=== PATIENT | female | born 1955 | race Caucasian/White ===

== ENCOUNTER 2019-04-04 16:25 | Emergency (ER) | payer OTHER ==
[2019-04-04] MEDS ORDERED: FUROSEMIDE 20 MG/ 2ML VIAL ONE (17:04)
[2019-04-04] MEDS ORDERED: FUROSEMIDE 40 MG/4 ML VIAL ONE (17:04)
[2019-04-04] MEDS ORDERED: METOPROLOL TAR 50 MG TAB ONE (17:19)
[2019-04-04 17:48] LABS: Absolute Lymphocytes (CBC) 1.4 K/uL (0.7-4.9); Hematocrit 38.6 % (36.0-45.0); Lymphocytes % 13.7 % (15.3-44.8); MPV 8.1 fL (7.6-11.3); RBC Red Blood Cell Count 4.32 M/uL (3.86-4.86)
--- NOTE | 2019-04-04 18:48 | ER ---
Nurse's Notes [facility] Name: Kandice Elizabeth Age: 63 yrs Sex: Female : 1955 Arrival Date: 04/04/2019 Time: 16:29 Bed 2 Private MD: Diagnosis: Unspecified combined systolic (congestive) and diastolic (congestive) heart failure;Pulmonary edema;Encounter for medication refill Presentation: 04/04 16:31 Presenting complaint: Patient states: SOB, BLE swelling x 2-3 weeks. Transition of sv care: patient was not received from another setting of care. Onset of symptoms was 2019. Care prior to arrival: None. 16:31 Method Of Arrival: Ambulatory sv 16:31 Acuity: COLBY 2 sv 16:42 Risk Assessment: Do you want to hurt yourself or someone else? Patient reports no tw2 desire to harm self or others. 17:17 Initial Sepsis Screen: Does the patient meet any 2 criteria? RR > 20 per min. HR > 90 tw2 bpm. Does the patient have a suspected source of infection? No. Patient's initial sepsis screen is negative. Triage Assessment: 16:43 Respiratory: Onset: The symptoms/episode began/occurred 2-3 weeks. tw2 18:09 Respiratory: the patient has moderate shortness of breath. tw2 Historical: - Allergies: 16:33 No Known Allergies; sv - Home Meds: 16:52 Novolin R 40 units, SUBQ twice daily Sub-Q [Active]; montelukast 10 mg oral tab 1 tab tw2 once daily [Active]; metoprolol tartrate 50 mg Oral tab 1 tab 2 times per day [Active]; furosemide 40 mg Oral tab 1 tab 2 times per day [Active]; pramipexole 0.25 mg oral tab 1 tab twice daily [Active]; Novolin N 100 unit/mL Sub-Q susp [Active]; Eliquis 5 mg oral tab 1 tab 2 times per day [Active]; Advair Diskus 250-50 mcg/dose Inhl dsdv 1 puff 2 times per day [Active]; - PMHx: 16:33 Hypertension; CHF; sv 16:34 Diabetes - IDDM; sv - PSHx: 16:33 Bypass; Heart stents; sv - Immunization history:: Adult Immunizations. - Social history:: Smoking status: . - Ebola Screening: : Patient denies travel to an Ebola-affected area in the 21 days before illness onset. - Family history:: not pertinent. - Hospitalizations: : No recent hospitalization is reported. Screenin:42 Abuse screen: Denies threats or abuse. Nutritional screening: No deficits noted. tw2 Tuberculosis screening: No symptoms or risk factors identified. Fall Risk Secondary diagnosis (15 points) impaired mobility. Assessment: 16:34 General: Appears in no apparent distress. obese, Behavior is calm, cooperative, tw2 appropriate for age. Pain: Denies pain. Neuro: Level of Consciousness is awake, alert, obeys commands, Oriented to person, place, time, situation. Neuro:. Cardiovascular: Heart tones S1 S2 Capillary refill < 3 seconds Rhythm is irregular. Respiratory: Reports shortness of breath at rest on exertion Airway is patent Respiratory effort is even, unlabored, Respiratory pattern is regular, symmetrical, Breath sounds with wheezes bilaterally. GI: No signs and/or symptoms were reported involving the gastrointestinal system. Abdomen is round non-distended, obese. GI: Bowel sounds present X 4 quads. : No signs and/or symptoms were reported regarding the genitourinary system. EENT: No signs and/or symptoms were reported regarding the EENT system. Derm: Skin is intact, is healthy with good turgor. Musculoskeletal: Range of motion: intact in all extremities. 17:34 Reassessment: Patient appears in no apparent distress at this time. No changes from tw2 previously documented assessment. Patient and/or family updated on plan of care and expected duration. Pain level reassessed. 18:30 Reassessment: Patient appears in no apparent distress at this time. No changes from tw2 previously documented assessment. Patient and/or family updated on plan of care and expected duration. Pain level reassessed. 19:26 Reassessment: Patient appears in no apparent distress at this time. No changes from tw2 previously documented assessment. Patient and/or family updated on plan of care and expected duration. Pain level reassessed. Patient states feeling better. Patient states symptoms have improved. Vital Signs: 16:33 BP 162 / 84; Pulse 121; Resp 32; Temp 98.4(TE); Pulse Ox 96% ; Weight 99.34 kg; Height sv 5 ft. 0 in. (152.40 cm); 16:59 BP 161 / 98; Pulse 115; Resp 18; Pulse Ox 97% on R/A; tw2 17:34 BP 161 / 88; Pulse 107; Resp 19; Pulse Ox 97% on 2 lpm NC; tw2 19:20 BP 148 / 81; Pulse 101; Resp 19; Pulse Ox 97% on R/A; tw2 16:33 Body Mass Index 42.77 (99.34 kg, 152.40 cm) sv ED Course: 16:29 Patient arrived in ED. ag5 16:31 Arm band placed on. sv 16:32 Triage completed. sv 16:34 Bed in low position. Call light in reach. cardiac monitor on. Pulse ox on. NIBP on. tw2 16:39 Shaan Mukherjee MD is Attending Physician. rn 16:59 Kacy March RN is Primary Nurse. tw2 17:15 Missed attempt(s): 22 gauge in right hand. Bleeding controlled, band aid applied, tw2 catheter tip intact. 17:22 XRAY Chest (1 view) In Process Unspecified. EDMS 17:26 Missed attempt(s): 24 gauge in left hand. notified charge nurse Samara<RN of need for tw2 iv. Bleeding controlled, band aid applied, catheter tip intact. 17:41 Inserted saline lock: 24 gauge in right wrist, using aseptic technique. Blood collected. 18:47 Khurram Byers MD is Referral Physician. rn 19:20 No provider procedures requiring assistance completed. IV discontinued, intact, tw2 bleeding controlled, No redness/swelling at site. Pressure dressing applied. Administered Medications: 17:55 Drug: Lasix 60 mg Route: IVP; Site: right hand; tw2 17:55 Drug: Metoprolol TARTRATE (Lopressor) 50 mg Route: PO; tw2 Output: 19:00 Urine: 400ml (Voided); Total: 400ml. tw2 Outcome: 18:47 Discharge ordered by MD. rn 19:20 Discharged to home ambulatory, with significant other. tw2 19:20 Condition: stable 19:20 Discharge instructions given to patient, significant other, Instructed on discharge instructions, follow up and referral plans. medication usage, Demonstrated understanding of instructions, follow-up care, medications, Prescriptions given X 3. 19:24 Patient left the ED. aa1 Signatures: Dispatcher [employer] EDMS Melania Diehl RN RN sv Karely Poe RN RN aa1 Shaan Mukherjee MD MD rn Smirch, Shelby, RN RN ss Wise, Tara, RN RN tw2 Ana Paula Lott ag5 Corrections: (The following items were deleted from the chart) 16:34 16:33 Resp 32bpm; Temp 98.4F Temporal; sv sv 18:09 16:34 Respiratory: Reports shortness of breath at rest on exertion Airway is patent tw2 Respiratory effort is even, unlabored, Respiratory pattern is regular, symmetrical, Breath sounds are clear bilaterally. tw2
--- NOTE | 2019-04-04 18:48 | EDPHYS ---
Physician Documentation [facility] Name: Kandice Elizabeth Age: 63 yrs Sex: Female : 1955 Arrival Date: 04/04/2019 Time: 16:29 Bed 2 Private MD: ED Physician Shaan Mukherjee HPI: 04/04 17:01 This 63 yrs old Female presents to ER via Ambulatory with complaints of rn Shortness Of Breath, Medication Refill, Blood Pressure Problem. 17:01 The patient has shortness of breath with light activity. Onset: The symptoms/episode rn began/occurred at an unknown time. Duration: The symptoms are intermittent. The patient's shortness of breath is aggravated by exertion, light activity, supine position, talking, walking. Severity of symptoms: At their worst the symptoms were moderate in the emergency department the symptoms are unchanged. The patient has experienced similar episodes in the past. The patient has not recently seen a physician. Reports sob and swelling for weeks, not from here so her doctor is not here, no fever, ran out of metoprolol and restless legs syndrome meds, here for refill. . Historical: - Allergies: 16:33 No Known Allergies; sv - Home Meds: 16:52 Novolin R 40 units, SUBQ twice daily Sub-Q [Active]; montelukast 10 mg oral tab 1 tab tw2 once daily [Active]; metoprolol tartrate 50 mg Oral tab 1 tab 2 times per day [Active]; furosemide 40 mg Oral tab 1 tab 2 times per day [Active]; pramipexole 0.25 mg oral tab 1 tab twice daily [Active]; Novolin N 100 unit/mL Sub-Q susp [Active]; Eliquis 5 mg oral tab 1 tab 2 times per day [Active]; Advair Diskus 250-50 mcg/dose Inhl dsdv 1 puff 2 times per day [Active]; - PMHx: 16:33 Hypertension; CHF; sv 16:34 Diabetes - IDDM; sv - PSHx: 16:33 Bypass; Heart stents; sv - Immunization history:: Adult Immunizations. - Social history:: Smoking status: . - Ebola Screening: : Patient denies travel to an Ebola-affected area in the 21 days before illness onset. - Family history:: not pertinent. - Hospitalizations: : No recent hospitalization is reported. ROS: 17:01 Constitutional: Negative for fever, chills, and weight loss, Eyes: Negative for injury, rn pain, redness, and discharge, Neck: Negative for injury, pain, and swelling, Cardiovascular: Negative for chest pain, palpitations Respiratory: Negative for pleuritic chest pain Abdomen/GI: Negative for abdominal pain, nausea, vomiting, diarrhea, and constipation, MS/Extremity: Negative for injury and deformity, Skin: Negative for injury, rash, and discoloration, Neuro: Negative for headache, weakness, numbness, tingling, and seizure. Exam: 17:01 Constitutional: This is a well developed, well nourished patient who is awake, alert, rn and in no acute distress. Head/Face: Normocephalic, atraumatic. ENT: MMM Cardiovascular: Tachycardic, irregular, distal pulses intact Respiratory: Clear bilateral breath sounds with diminished at bases. Speaking full sentences. Abdomen/GI: soft, non-tender MS/ Extremity: Pulses equal, no cyanosis. Neurovascular intact. Full, normal range of motion. Equal circumference. 2+ pitting edema bilateral lower ext. Neuro: Awake and alert, GCS 15, oriented to person, place, time, and situation. Cranial nerves II-XII grossly intact. Motor strength 5/5 in all extremities. Sensory grossly intact. Vital Signs: 16:33 BP 162 / 84; Pulse 121; Resp 32; Temp 98.4(TE); Pulse Ox 96% ; Weight 99.34 kg; Height sv 5 ft. 0 in. (152.40 cm); 16:59 BP 161 / 98; Pulse 115; Resp 18; Pulse Ox 97% on R/A; tw2 17:34 BP 161 / 88; Pulse 107; Resp 19; Pulse Ox 97% on 2 lpm NC; tw2 19:20 BP 148 / 81; Pulse 101; Resp 19; Pulse Ox 97% on R/A; tw2 16:33 Body Mass Index 42.77 (99.34 kg, 152.40 cm) sv MDM: 16:39 Patient medically screened. rn 18:45 Differential diagnosis: CHF exacerbation, pulmonary edema, reactive airway disease. rn Data reviewed: vital signs, nurses notes, lab test result(s), EKG, radiologic studies, plain films, and as a result, I will discharge patient. Counseling: I had a detailed discussion with the patient and/or guardian regarding: the historical points, exam findings, and any diagnostic results supporting the discharge/admit diagnosis, lab results, radiology results, the need for outpatient follow up, to return to the emergency department if symptoms worsen or persist or if there are any questions or concerns that arise at home. Response to treatment: the patient's symptoms have markedly improved after treatment, and as a result, I will discharge patient. Special discussion: I discussed with the patient/guardian in detail that at this point there is no indication for admission to the hospital. It is understood, however, that if the symptoms persist or worsen the patient needs to return immediately for re-evaluation. Based on the history and exam findings, there is no indication for further emergent testing or inpatient evaluation. I discussed with the patient/guardian the need to see the sales promotion coordinator for further evaluation of the symptoms. I discussed with the patient/guardian the need to see the primary care provider for further evaluation of the symptoms. ED course: Reports marked improvement, has urinated quite a bit, xray shows mild pulmonary edema, elevated BNP, but no oxygen requirement. Requesting to go home. Afib with rvr responding to metoprolol, and likely running faster than normal because she has been out of metoprolol. . 04/04 16:58 Order name: CBC with Diff; Complete Time: 18:06 rn 04/04 16:58 Order name: Basic Metabolic Panel; Complete Time: 18:08 rn 04/04 16:58 Order name: N-Terminal Pro-brain Natriuretic Peptide; Complete Time: 18:08 rn 04/04 16:58 Order name: XRAY Chest (1 view); Complete Time: 19:16 rn 04/04 16:58 Order name: IV Start; Complete Time: 18:08 rn 04/04 16:58 Order name: EKG; Complete Time: 16:58 rn 04/04 16:58 Order name: EKG - Nurse/Tech; Complete Time: 18:07 rn Administered Medications: 17:55 Drug: Lasix 60 mg Route: IVP; Site: right hand; tw2 17:55 Drug: Metoprolol TARTRATE (Lopressor) 50 mg Route: PO; tw2 Disposition: 04/04/19 18:47 Discharged to Home. Impression: Unspecified combined systolic (congestive) and diastolic (congestive) heart failure, Pulmonary edema, Encounter for medication refill. - Condition is Stable. - Discharge Instructions: Heart Failure, Pulmonary Edema. - Prescriptions for pramipexole 0.25 mg Oral tablet - take 1 tablet by ORAL route 2 times per day As needed 2-3 hours before bedtime; 60 tablet. Metoprolol Tartrate 50 mg Oral Tablet - take 1 tablet by ORAL route 2 times per day take with meal; 60 tablet. Albuterol Sulfate 90 mcg/actuation - inhale 1-2 puff by INHALATION route every 4-6 hours; 1 Inhaler. - Medication Reconciliation Form, Thank You Letter, Antibiotic Education, Prescription Opioid Use form. - Follow up: Khurram Byers; When: As needed; Reason: Recheck today's complaints, Re-evaluation by your physician. - Problem is chronic. - Symptoms have improved. Signatures: Dispatcher [employer] EDMS Melania Diehl RN RN Karely Poe RN RN aa1 Shaan Mukherjee MD MD rn Wise, Tara, RN RN tw2 Corrections: (The following items were deleted from the chart) 17:09 17:01 Constitutional: This is a well developed, well nourished patient who is awake, rn alert, and in no acute distress. Head/Face: Normocephalic, atraumatic. ENT: MMM Cardiovascular: Tachycardic, regular, distal pulses intact Respiratory: Clear bilateral breath sounds with diminished at bases. Speaking full sentences. Abdomen/GI: soft, non-tender MS/ Extremity: Pulses equal, no cyanosis. Neurovascular intact. Full, normal range of motion. Equal circumference. 2+ pitting edema bilateral lower ext. Neuro: Awake and alert, GCS 15, oriented to person, place, time, and situation. Cranial nerves II-XII grossly intact. Motor strength 5/5 in all extremities. Sensory grossly intact. rn 19:24 18:47 04/04/2019 18:47 Discharged to Home. Impression: Unspecified combined systolic aa1 (congestive) and diastolic (congestive) heart failure; Pulmonary edema; Encounter for medication refill. Condition is Stable. Discharge Instructions: Heart Failure, Pulmonary Edema. Prescriptions for pramipexole 0.25 mg Oral tablet - take 1 tablet by ORAL route 2 times per day As needed 2-3 hours before bedtime; 60 tablet, Metoprolol Tartrate 50 mg Oral Tablet - take 1 tablet by ORAL route 2 times per day take with meal; 60 tablet, Albuterol Sulfate 90 mcg/actuation - inhale 1-2 puff by INHALATION route every 4-6 hours; 1 Inhaler. and Forms are Medication Reconciliation Form, Thank You Letter, Antibiotic Education, Prescription Opioid Use. Follow up: Khurram Byers; When: As needed; Reason: Recheck today's complaints, Re-evaluation by your physician. Problem is chronic. Symptoms have improved. rn
--- NOTE | 2019-04-04 19:13 | RAD REPORT ---
EXAM DESCRIPTION: RAD - Chest Single View - 04/04/2019 5:24 pm CLINICAL HISTORY: Dyspnea COMPARISON: None. TECHNIQUE: AP portable chest image was obtained 1720 hours . FINDINGS: No peripheral consolidation or mass identifiable. Portable technique and large body habitu s limit the examination. Interstitial markings are prominent. Cardiomegaly is present with vascular e ngorgement. Sternotomy wires are in place. No measurable pleural effusion and no pneumothorax. No acu te bony abnormality seen. No acute aortic findings suspected. IMPRESSION: Limited portable study showing mild CHF/ volume overload findings.
[2019-04-04 19:45] VITALS: TEMP 98.4
[2019-04-04 19:47] VITALS: O2SAT 97
[2019-04-04 19:55] VITALS: BP 117/66
--- NOTE | 2019-04-05 06:34 | EKG ---
Test Date: 2019-04-04 Test Time: 17:06:31 Clinical Laboratory Director: CHARITY MEASUREMENT RESULTS: Intervals: Rate: 118 ND: QRSD: 76 QT: 330 QTc: 462 [place]: P: ND: QRS: 119 T: -44 INTERPRETIVE STATEMENTS: Atrial fibrillation with rapid ventricular response Right axis deviation T wave abnormality, consider inferior ischemia Abnormal ECG No previous ECG available for comparison Electronically Signed On 04-05-19 06:33:23 BISQUE WARE DIPPER by Pierce Ley
== END 2019-04-04 19:24 | disposition home or self-care (01) ==
LOC: ER 16:25
DX: I50.40 Unspecified combined systolic (congestive) and diastolic (congestive) heart failure (principal); J81.1 Chronic pulmonary edema; Z76.0 Encounter for issue of repeat prescription; I10 Essential (primary) hypertension; E11.9 Type 2 diabetes mellitus without complications; Z79.01 Long term (current) use of anticoagulants; Z79.4 Long term (current) use of insulin; Z95.818 Presence of other cardiac implants and grafts
CPT/HCPCS: 93005; 85025; 80048; 36415; 83880; 71045; 96374; 99284; J1940 ×2

== ENCOUNTER 2019-04-10 15:17 | Emergency (ER) | payer OTHER ==
[2019-04-10 18:12] LABS: Urine Blood TRACE (NEG); Urine Glucose 3+ (NEG); Urine Protein TRACE (NEG)
[2019-04-10 18:23] LABS: Urine Bacteria >50 /HPF (<20); Urine Culture Reflex Order NOT NEEDED; Urine Mucus 1+ /HPF (NONE SEEN)
[2019-04-10] MEDS ORDERED: LIDOCAINE 1% MPF 5 ML VIAL ONE (18:29)
[2019-04-10] MEDS ORDERED: CEFTRIAXONE 1000 MG/VIAL ONE (18:30)
--- NOTE | 2019-04-10 18:45 | ER ---
Nurse's Notes [facility] Name: Kandice Elizabeth Age: 63 yrs Sex: Female : 1955 Arrival Date: 04/10/2019 Time: 15:21 Bed 16 Private MD: Diagnosis: Streptococcal pharyngitis;Urinary tract infection, site not specified Presentation: 04/10 15:57 Presenting complaint: Patient states: "I had blood in my urine this morning, it was aj1 pale pink, the past 2-3 days my throat has been so sore I can't stand it" Reports fever at home of 100.0 Patient also reports right ear pain. Transition of care: patient was not received from another setting of care. Onset of symptoms was April 10, 2019. Risk Assessment: Do you want to hurt yourself or someone else? Patient reports no desire to harm self or others. Initial Sepsis Screen: Does the patient meet any 2 criteria? HR > 90 bpm. No. Patient's initial sepsis screen is negative. Does the patient have a suspected source of infection? Yes: Dysuria/Frequency/Urgency/UTI. Care prior to arrival: None. 15:57 Method Of Arrival: Wheelchair aj1 15:57 Acuity: COLBY 3 aj1 Triage Assessment: 16:02 General: Appears in no apparent distress. comfortable, Behavior is calm, cooperative, aj1 appropriate for age. Pain: Complains of pain in right ear, left aspect of posterior pharynx and right aspect of posterior pharynx. EENT: Reports sore throat and ear pain. Neuro: Level of Consciousness is awake, alert, obeys commands. Cardiovascular: Patient's skin is warm and dry. Respiratory: Airway is patent Respiratory effort is even, unlabored, Respiratory pattern is regular, symmetrical. Historical: - Allergies: 16:02 No Known Allergies; aj1 - Home Meds: 16:02 Advair Diskus 250-50 mcg/dose Inhl dsdv 1 puff 2 times per day [Active]; Eliquis 5 mg aj1 Oral tab 1 tab 2 times per day [Active]; furosemide 40 mg Oral tab 1 tab 2 times per day [Active]; metoprolol tartrate 50 mg Oral tab 1 tab 2 times per day [Active]; montelukast 10 mg Oral tab 1 tab once daily [Active]; Novolin N 100 unit/mL Sub-Q susp [Active]; Novolin R 40 units, SUBQ twice daily Sub-Q [Active]; pramipexole 0.25 mg Oral tab 1 tab twice daily [Active]; - PMHx: 16:02 CHF; Diabetes - IDDM; Hypertension; Atrial Fib; brain bleed; aj1 - PSHx: 16:02 bypass surgery; aj1 - Immunization history:: Adult Immunizations up to date. - Social history:: Smoking status: Patient/guardian denies using tobacco. - Ebola Screening: : Patient denies travel to an Ebola-affected area in the 21 days before illness onset. Screenin:34 Abuse screen: Denies threats or abuse. Denies injuries from another. Nutritional iw screening: No deficits noted. Tuberculosis screening: No symptoms or risk factors identified. Fall Risk None identified. Assessment: 17:15 General: Appears in no apparent distress. Behavior is calm, cooperative. Pain: iw Complains of pain in mouth and right aspect of posterior pharynx and left aspect of posterior pharynx. Neuro: Level of Consciousness is awake, alert, obeys commands, Moves all extremities. Full function. Cardiovascular: Patient's skin is warm and dry. Respiratory: Airway is patent Respiratory effort is even, unlabored, Breath sounds are clear bilaterally. : Reports blood in urine. Derm: Skin is intact, is healthy with good turgor. Musculoskeletal: Range of motion: intact in all extremities. 18:30 EENT: Throat is reddened. iw 18:34 Reassessment: Patient appears in no apparent distress at this time. Patient and/or iw family updated on plan of care and expected duration. Pain level reassessed. Patient is alert, oriented x 3, equal unlabored respirations, skin warm/dry/pink. Vital Signs: 16:02 BP 135 / 83; Pulse 102; Resp 20; Temp 98.7; Pulse Ox 98% on R/A; Weight 131.54 kg (R); aj1 Height 5 ft. 0 in. (152.40 cm) (R); Pain 8/10; 17:58 BP 151 / 96; Pulse 105; Resp 18; Temp 98.9(O); Pulse Ox 99% on R/A; mh5 18:34 BP 145 / 84; Pulse 98; Resp 16; Pulse Ox 100% on R/A; iw 16:02 Body Mass Index 56.64 (131.54 kg, 152.40 cm) [facility] ED Course: 15:21 Patient arrived in ED. mr 16:00 Triage completed. [facility] 16:02 Arm band placed on Patient placed in waiting room, Patient notified of wait time. [facility] 16:31 Royer Turner PA is PHCP. [facility] 16:31 Freddy Hall MD is Attending Physician. [facility] 16:34 Bertha Green RN is Primary Nurse. iw 17:37 Strep Sent. mh5 17:37 Flu Sent. mh5 17:57 Urine Culture Sent. mh5 17:57 Urine Microscopic Only Sent. mh5 17:57 Urine Dipstick--Ancillary (enter results) Sent. 5 17:57 Urine collected: clean catch specimen, cloudy. mh5 17:58 Patient has correct armband on for positive identification. Placed in gown. Bed in low mh5 position. Call light in reach. Side rails up X 1. Adult w/ patient. Warm blanket given. Pulse ox on. NIBP on. 18:30 No provider procedures requiring assistance completed. IV discontinued, intact, iw bleeding controlled, No redness/swelling at site. Pressure dressing applied. Administered Medications: 18:34 Drug: Rocephin (cefTRIAXone) 1 grams Route: IM; Site: left vastus lateralis; iw Outcome: 18:44 Discharge ordered by . [facility] 19:00 Discharged to home via wheelchair, with family. iw 19:00 Condition: good 19:00 Discharge instructions given to patient, family, Instructed on discharge instructions, follow up and referral plans. medication usage, Demonstrated understanding of instructions, follow-up care, medications, Prescriptions given X 1. 19:02 Patient left the ED. yolanda Addendum: 04/13/2019 15:08 Addendum: Culture Results: Positive urine culture. No further action required. Other: s s Sensitivity ok per Kylah Singh NP. Signatures: Clarissa Gill, RN RN aj Freddy Hall MD MD cha Mickail, Joel, PA PA jmm Arnold Ivone Bertha Green RN RN Samara Ardon RN RN Camelia Connolly [facility]
--- NOTE | 2019-04-10 18:45 | EDPHYS ---
Physician Documentation [facility] Name: Kandice Elizabeth Age: 63 yrs Sex: Female : 1955 Arrival Date: 04/10/2019 Time: 15:21 Bed 16 Private MD: ED Physician Freddy Hall HPI: 04/10 16:58 This 63 yrs old Female presents to ER via Wheelchair with complaints of jmm Urinary Problem, Sore Throat, Ear Pain. 16:58 The patient presents with sore throat. Onset: The symptoms/episode began/occurred jmm gradually, 3 day(s) ago. Modifying factors: The symptoms are alleviated by nothing. Associated signs and symptoms: Pertinent positives: earache, fever. This is a 63 year old female with a history of DM, CHF, HTN, atrial fibrillation that presents to the ED with complaints of sore throat, right ear pain. Patient states she also noticed lesions on her tongue. Denies cough, abdominal pain, shortness of breath, or chest pain. . Historical: - Allergies: 16:02 No Known Allergies; aj1 - Home Meds: 16:02 Advair Diskus 250-50 mcg/dose Inhl dsdv 1 puff 2 times per day [Active]; Eliquis 5 mg aj1 Oral tab 1 tab 2 times per day [Active]; furosemide 40 mg Oral tab 1 tab 2 times per day [Active]; metoprolol tartrate 50 mg Oral tab 1 tab 2 times per day [Active]; montelukast 10 mg Oral tab 1 tab once daily [Active]; Novolin N 100 unit/mL Sub-Q susp [Active]; Novolin R 40 units, SUBQ twice daily Sub-Q [Active]; pramipexole 0.25 mg Oral tab 1 tab twice daily [Active]; - PMHx: 16:02 CHF; Diabetes - IDDM; Hypertension; Atrial Fib; brain bleed; aj1 - PSHx: 16:02 bypass surgery; aj1 - Immunization history:: Adult Immunizations up to date. - Social history:: Smoking status: Patient/guardian denies using tobacco. - Ebola Screening: : Patient denies travel to an Ebola-affected area in the 21 days before illness onset. ROS: 16:58 Cardiovascular: Negative for chest pain, palpitations, and edema, Respiratory: Negative jmm for shortness of breath, cough, wheezing, and pleuritic chest pain, Abdomen/GI: Negative for abdominal pain, nausea, vomiting, diarrhea, and constipation. 16:58 MS/Extremity: Negative for injury and deformity, Neuro: Negative for headache, weakness, numbness, tingling, and seizure. 16:58 Constitutional: Positive for fever. 16:58 : Positive for hematuria. 16:58 All other systems are negative. Exam: 16:58 Constitutional: This is a well developed, well nourished patient who is awake, alert, jmm and in no acute distress. Head/Face: atraumatic. Eyes: EOMI, no conjunctival erythema appreciated ENT: Moist Mucus Membranes Neck: Trachea midline, Supple Chest/axilla: Normal chest wall appearance and motion. Cardiovascular: Regular rate and rhythm. No edema appreciated Respiratory: Normal respirations, no respiratory distress appreciated Abdomen/GI: Non distended, soft Back: Normal ROM Skin: General appearance color normal MS/ Extremity: Moves all extremities, no obvious deformities appreciated, no edema noted to the lower extremities Neuro: Awake and alert, normal gait Psych: Behavior is normal, Mood is normal, Patient is cooperative and pleasant 16:58 ENT: Ear canal(s): old noted, TM's: are normal, Posterior pharynx: erythema, that is mild, ulcers noted to the underside of the tongue. 16:58 Abdomen/GI: Inspection: obese Bowel sounds: normal, Palpation: abdomen is soft and non-tender, in all quadrants. Vital Signs: 16:02 BP 135 / 83; Pulse 102; Resp 20; Temp 98.7; Pulse Ox 98% on R/A; Weight 131.54 kg (R); aj1 Height 5 ft. 0 in. (152.40 cm) (R); Pain 8/10; 17:58 BP 151 / 96; Pulse 105; Resp 18; Temp 98.9(O); Pulse Ox 99% on R/A; mh5 18:34 BP 145 / 84; Pulse 98; Resp 16; Pulse Ox 100% on R/A; iw 16:02 Body Mass Index 56.64 (131.54 kg, 152.40 cm) aj1 MDM: 16:52 Patient medically screened. [facility] 18:41 Data reviewed: vital signs, nurses notes. Counseling: I had a detailed discussion with rosangela the patient and/or guardian regarding: the historical points, exam findings, and any diagnostic results supporting the discharge/admit diagnosis, lab results, the need for outpatient follow up, to return to the emergency department if symptoms worsen or persist or if there are any questions or concerns that arise at home. ED course: Patient is alert and non toxic in appearance in the ED. Patient advised to follow up with pcp and otherwise given strict return precautions. Patient understood and agrees with the plan of care. . 04/10 16:46 Order name: Flu; Complete Time: 17:41 [facility] 04/10 16:46 Order name: Strep; Complete Time: 17:41 [facility] 04/10 17:38 Order name: Urine Culture [facility] 04/10 17:38 Order name: Urine Microscopic Only; Complete Time: 18:46 [facility] 04/10 17:52 Order name: Urine Dipstick--Ancillary (enter results); Complete Time: 18:46 04/10 16:46 Order name: Urine Dipstick-Ancillary (obtain specimen); Complete Time: 17:37 [facility] Administered Medications: 18:34 Drug: Rocephin (cefTRIAXone) 1 grams Route: IM; Site: left vastus lateralis; iw Disposition: 20:38 Co-signature as Attending Physician, Freddy Hall MD I agree with the assessment and [facility] plan of care. Disposition: 04/10/19 18:44 Discharged to Home. Impression: Streptococcal pharyngitis, Urinary tract infection, site not specified. - Condition is Stable. - Discharge Instructions: Strep Throat, Urinary Tract Infection, Adult. - Prescriptions for Cephalexin 500 mg Oral Capsule - take 1 capsule by ORAL route every 12 hours for 10 days; 20 capsule. - Medication Reconciliation Form, Thank You Letter, Antibiotic Education, Prescription Opioid Use form. - Follow up: Private Physician; When: 2 - 3 days; Reason: Recheck today's complaints, Continuance of care, Re-evaluation by your physician. Signatures: Dispatcher [employer] Clarissa Gomez RN RN Freddy Sorenson MD MD cha Mickail, Joel, PA PA jmm Williams, Irene, RN RN iw Corrections: (The following items were deleted from the chart) 19:02 18:44 04/10/2019 18:44 Discharged to Home. Impression: Streptococcal pharyngitis; yolanda Urinary tract infection, site not specified. Condition is Stable. Forms are Medication Reconciliation Form, Thank You Letter, Antibiotic Education, Prescription Opioid Use. Follow up: Private Physician; When: 2 - 3 days; Reason: Recheck today's complaints, Continuance of care, Re-evaluation by your physician. rosangela
[2019-04-10 19:14] VITALS: TEMP 98.9
[2019-04-10 19:16] VITALS: BP 145/84; O2SAT 100
== END 2019-04-10 19:02 | disposition home or self-care (01) ==
LOC: ER 15:17
DX: J03.00 Acute streptococcal tonsillitis, unspecified (principal); N39.0 Urinary tract infection, site not specified; I10 Essential (primary) hypertension; E11.9 Type 2 diabetes mellitus without complications; I50.9 Heart failure, unspecified; I48.91 Unspecified atrial fibrillation; Z79.01 Long term (current) use of anticoagulants; Z79.4 Long term (current) use of insulin
CPT/HCPCS: 81003; 81015; 87077; 87081; 87086; 87088; 87186; 87804; 96372; 99284

== ENCOUNTER 2019-05-20 17:37 | Emergency (ER) | payer OTHER ==
--- NOTE | 2019-05-20 19:14 | RAD REPORT ---
EXAM DESCRIPTION: Fran Gomez And Ava (2 Views)05/20/2019 7:03 pm CLINICAL HISTORY: Chest pain COMPARISON: None FINDINGS: The lungs appear clear of acute infiltrate. The heart is mildly to moderately enlarged. U pper lobe vessels are prominent indicative of pulmonary venous hypertension Postsurgical changes involve the chest.
[2019-05-20] MEDS ORDERED: FUROSEMIDE 40 MG/4 ML VIAL ONE (19:44)
[2019-05-20] MEDS ORDERED: METOPROLOL TAR 50 MG TAB ONE (19:44)
[2019-05-20 19:47] LABS: Absolute Lymphocytes (CBC) 1.2 K/uL (0.7-4.9); Hematocrit 43.1 % (36.0-45.0); MPV 7.9 fL (7.6-11.3); RBC Red Blood Cell Count 4.84 M/uL (3.86-4.86)
[2019-05-20 20:05] LABS: Potassium 4.1 mmol/L (3.5-5.1)
--- NOTE | 2019-05-20 20:14 | ER ---
Nurse's Notes [facility] Name: Kandice Elizabeth Age: 63 yrs Sex: Female : 1955 Arrival Date: 05/20/2019 Time: 17:38 Bed 8 Private MD: Diagnosis: Unspecified systolic (congestive) heart failure;Atrial fibrillation and flutter;Patient's unintentional underdosing of medication regimen for other reason Presentation: 05/20 17:57 Presenting complaint: Patient states: i think i am getting an infection in my lungs and tw2 my head i have been coughing and coughing about a week, i am wheezing so back i just get short of breath walking just over to the desk to you just a short place, i took a breathing treatment about an hour ago it helps some. Transition of care: patient was not received from another setting of care. Onset of symptoms was May 20, 2019. Risk Assessment: Do you want to hurt yourself or someone else? Patient reports no desire to harm self or others. Initial Sepsis Screen: Does the patient meet any 2 criteria? No. Patient's initial sepsis screen is negative. Does the patient have a suspected source of infection? No. Patient's initial sepsis screen is negative. Care prior to arrival: None. 17:57 Method Of Arrival: Ambulatory tw2 17:57 Acuity: COLBY 3 tw2 Triage Assessment: 17:59 General: Appears in no apparent distress. obese, well groomed, Behavior is calm, tw2 cooperative, appropriate for age. Pain: Complains of pain in headache. EENT: Reports nasal congestion nasal discharge. Respiratory: Reports shortness of breath at rest on exertion cough that is Onset: The symptoms/episode began/occurred a couple of days no, the patient has mild shortness of breath. Historical: - Allergies: 19:51 No Known Allergies; rr5 - Home Meds: 18:00 Advair Diskus 250-50 mcg/dose Inhl dsdv 1 puff 2 times per day [Active]; Eliquis 5 mg tw2 Oral tab 1 tab 2 times per day [Active]; furosemide 40 mg Oral tab 1 tab 2 times per day [Active]; montelukast 10 mg Oral tab 1 tab once daily [Active]; Novolin N 100 unit/mL Sub-Q susp [Active]; Novolin R 40 units, SUBQ twice daily Sub-Q [Active]; pramipexole 0.25 mg Oral tab 1 tab twice daily [Active]; metoprolol tartrate 50 mg Oral tab 1 tab 2 times per day [Active]; - PMHx: 18:00 Atrial Fib; CHF; Brain bleed; Diabetes - IDDM; Hypertension; tw2 - PSHx: 18:00 bypass surgery; tw2 - Immunization history:: Adult Immunizations. - Coronavirus screen:: The patient has NOT traveled to [place] in the past 14 days. - Social history:: Smoking status: . - Ebola Screening: : Patient denies travel to an Ebola-affected area in the 21 days before illness onset. Screenin:30 Abuse screen: Denies threats or abuse. Nutritional screening: No deficits noted. ll1 Tuberculosis screening: No symptoms or risk factors identified. Fall Risk None identified. Assessment: 18:26 General: Appears uncomfortable, Behavior is calm, cooperative. Neuro: No deficits ll1 noted. Cardiovascular: No deficits noted. Respiratory: Airway is patent Trachea midline Respiratory effort is even, unlabored, Respiratory pattern is regular, Breath sounds are clear bilaterally. Breath sounds with wheezes in upper airway with expiration the patient has mild shortness of breath. GI: No deficits noted. 19:25 General: Appears in no apparent distress. uncomfortable, Behavior is calm, cooperative, rr5 appropriate for age. Pain: Complains of pain in right leg and left leg Pain does not radiate. Pain Quality of pain is described as aching, Pain began gradually, Is continuous. Neuro: Level of Consciousness is awake, alert, obeys commands, Oriented to person, place, time, situation. Cardiovascular: Capillary refill < 3 seconds Patient's skin is warm and dry. Rhythm is atrial fibrillation. Respiratory: Reports shortness of breath Airway is patent Respiratory effort is even, unlabored, Respiratory pattern is regular, symmetrical. GI: No signs and/or symptoms were reported involving the gastrointestinal system. : No signs and/or symptoms were reported regarding the genitourinary system. EENT: No signs and/or symptoms were reported regarding the EENT system. Derm: Skin is fragile, is thin, Skin temperature is warm. Musculoskeletal: Circulation, motion, and sensation intact. Capillary refill < 3 seconds, Reports pain in right leg and left leg. 20:20 Reassessment: Patient appears in no apparent distress at this time. Patient is alert, rr5 oriented x 3, equal unlabored respirations, skin warm/dry/pink. positive urine output post lasix. 21:10 Reassessment: Patient appears in no apparent distress at this time. Patient is alert, rr5 oriented x 3, equal unlabored respirations, skin warm/dry/pink. discharge instruction given and explained without complaints made. Patient states feeling better. Patient states symptoms have improved. Vital Signs: 18:00 BP 140 / 87; Pulse 97; Resp 19; Temp 98.8(TE); Pulse Ox 98% on R/A; Weight 95.25 kg tw2 (R); Height 5 ft. 0 in. (152.40 cm) (R); Pain 6/10; 19:30 BP 136 / 88; Pulse 89; Resp 24; Temp 98.5; Pulse Ox 99% on R/A; rr5 20:40 BP 133 / 75; Pulse 92; Resp 20; Pulse Ox 98% ; rr5 21:11 BP 123 / 70; Pulse 90; Resp 19; Temp 97.6; Pulse Ox 98% on R/A; rr5 18:00 Body Mass Index 41.01 (95.25 kg, 152.40 cm) tw2 ED Course: 17:38 Patient arrived in ED. as 17:58 Triage completed. tw2 17:58 Arm band placed on. tw2 18:04 [facility]C [facility] snw 18:04 Nicolas Billy MD is Attending Physician. snw 18:31 Patient has correct armband on for positive identification. Bed in low position. Call ll1 light in reach. Side rails up X 1. 18:32 Michael Davidson, MARIBELL is Primary Nurse. ll1 19:11 Chest Pa And Lat (2 Views) XRAY In Process Unspecified. EDMS 19:40 Inserted saline lock: 20 gauge in right hand, using aseptic technique. Blood collected. rr5 20:20 Awaiting ED provider evaluation. rr5 Administered Medications: 19:45 Drug: Metoprolol TARTRATE (Lopressor) 50 mg Route: PO; rr5 21:01 Follow up: Response: No adverse reaction rr5 19:46 Drug: Lasix 40 mg Route: IVP; Site: right hand; rr5 20:40 Follow up: Response: No adverse reaction; Other; positive urine output. rr5 20:20 Drug: Requip 2 mg Route: PO; rr5 21:01 Follow up: Response: No adverse reaction rr5 Intake: Output: 20:40 Urine: 450ml (Voided); Total: 450ml. rr5 21:11 Urine: 250ml (Voided); Total: 700ml. rr5 Outcome: 20:13 Discharge ordered by MD. melendez 21:12 Patient left the ED. rr5 Signatures: Dispatcher [employer] EDMS Kylah Singh, MARCO-C [employer]-Marva Davis Tara, RN RN tw2 Neptali German RN RN rr5 Michael Davidson RN RN ll1 Corrections: (The following items were deleted from the chart) 19:53 19:30 BP 136 / 88; Pulse 89bpm; Resp 18bpm; Pulse Ox 99% RA; Temp 98.5F; rr5 rr5 21:12 21:11 BP 123 / 170; Pulse 90bpm; Resp 19bpm; Pulse Ox 98% RA; Temp 97.6F; rr5 rr5
--- NOTE | 2019-05-20 20:14 | EDPHYS ---
Physician Documentation [facility] Name: Kandice Elizabeth Age: 63 yrs Sex: Female : 1955 Arrival Date: 05/20/2019 Time: 17:38 Bed 8 Private MD: ED Physician Nicolas Billy HPI: 05/20 18:56 This 63 yrs old Female presents to ER via Ambulatory with complaints of snw Wheezing > 1 Year, Shortness Of Breath. Historical: - Allergies: 19:51 No Known Allergies; rr5 - Home Meds: 18:00 Advair Diskus 250-50 mcg/dose Inhl dsdv 1 puff 2 times per day [Active]; Eliquis 5 mg tw2 Oral tab 1 tab 2 times per day [Active]; furosemide 40 mg Oral tab 1 tab 2 times per day [Active]; montelukast 10 mg Oral tab 1 tab once daily [Active]; Novolin N 100 unit/mL Sub-Q susp [Active]; Novolin R 40 units, SUBQ twice daily Sub-Q [Active]; pramipexole 0.25 mg Oral tab 1 tab twice daily [Active]; metoprolol tartrate 50 mg Oral tab 1 tab 2 times per day [Active]; - PMHx: 18:00 Atrial Fib; CHF; Brain bleed; Diabetes - IDDM; Hypertension; tw2 - PSHx: 18:00 bypass surgery; tw2 - Immunization history:: Adult Immunizations. - Coronavirus screen:: The patient has NOT traveled to [place] in the past 14 days. - Social history:: Smoking status: . - Ebola Screening: : Patient denies travel to an Ebola-affected area in the 21 days before illness onset. ROS: 18:53 Constitutional: Negative for fever, chills, and weight loss, Eyes: Negative for injury, snw pain, redness, and discharge, ENT: Negative for injury, pain, and discharge, Neck: Negative for injury, pain, and swelling, Cardiovascular: Negative for chest pain, palpitations, and edema, Abdomen/GI: Negative for abdominal pain, nausea, vomiting, diarrhea, and constipation, Back: Negative for injury and pain, : Negative for injury, bleeding, discharge, and swelling, MS/Extremity: Negative for injury and deformity, Skin: Negative for injury, rash, and discoloration, Neuro: Negative for headache, weakness, numbness, tingling, and seizure, Psych: Negative for depression, anxiety, suicide ideation, homicidal ideation, and hallucinations. 18:53 Respiratory: Positive for cough, with no reported sputum, shortness of breath, on exertion. Exam: 18:51 Constitutional: This is a well developed, well nourished patient who is awake, alert, snw and in no acute distress. Head/Face: Normocephalic, atraumatic. Eyes: Pupils equal round and reactive to light, extra-ocular motions intact. Lids and lashes normal. Conjunctiva and sclera are non-icteric and not injected. Cornea within normal limits. Periorbital areas with no swelling, redness, or edema. ENT: Nares patent. No nasal discharge, no septal abnormalities noted. Tympanic membranes are normal and external auditory canals are clear. Oropharynx with no redness, swelling, or masses, exudates, or evidence of obstruction, uvula midline. Mucous membranes moist. Neck: Trachea midline, no thyromegaly or masses palpated, and no cervical lymphadenopathy. Supple, full range of motion without nuchal rigidity, or vertebral point tenderness. No Meningismus. Chest/axilla: Normal chest wall appearance and motion. Nontender with no deformity. No lesions are appreciated. Cardiovascular: Regular rate and rhythm with a normal S1 and S2. No gallops, murmurs, or rubs. Normal PMI, no JVD. No pulse deficits. 18:51 Back: No spinal tenderness. No costovertebral tenderness. Full range of motion. Skin: Warm, dry with normal turgor. Normal color with no rashes, no lesions, and no evidence of cellulitis. MS/ Extremity: Pulses equal, no cyanosis. Neurovascular intact. Full, normal range of motion. Neuro: Awake and alert, GCS 15, oriented to person, place, time, and situation. Cranial nerves II-XII grossly intact. Motor strength 5/5 in all extremities. Sensory grossly intact. Cerebellar exam normal. Normal gait. Psych: Awake, alert, with orientation to person, place and time. Behavior, mood, and affect are within normal limits. 18:51 Respiratory: the patient does not display signs of respiratory distress, Respirations: labored breathing, that is mild, shallow respirations, Breath sounds: decreased breath sounds. 18:51 Abdomen/GI: Inspection: obese Bowel sounds: normal, Palpation: abdomen is soft and non-tender, in the mildly distended. Vital Signs: 18:00 BP 140 / 87; Pulse 97; Resp 19; Temp 98.8(TE); Pulse Ox 98% on R/A; Weight 95.25 kg tw2 (R); Height 5 ft. 0 in. (152.40 cm) (R); Pain 6/10; 19:30 BP 136 / 88; Pulse 89; Resp 24; Temp 98.5; Pulse Ox 99% on R/A; rr5 20:40 BP 133 / 75; Pulse 92; Resp 20; Pulse Ox 98% ; rr5 21:11 BP 123 / 70; Pulse 90; Resp 19; Temp 97.6; Pulse Ox 98% on R/A; rr5 18:00 Body Mass Index 41.01 (95.25 kg, 152.40 cm) tw2 MDM: 18:28 Patient medically screened. snw 20:06 Data reviewed: vital signs, nurses notes. Data interpreted: Pulse oximetry: on room air snw is 99 %. Interpretation: normal. Counseling: I had a detailed discussion with the patient and/or guardian regarding: the historical points, exam findings, and any diagnostic results supporting the discharge/admit diagnosis, the presence of at least one elevated blood pressure reading (>120/80) during this emergency department visit, lab results, radiology results, the need for outpatient follow up, to return to the emergency department if symptoms worsen or persist or if there are any questions or concerns that arise at home. Special discussion: I have referred the patient to see his PCP for further evaluation of high blood pressure. Based on the history and exam findings, there is no indication for further emergent testing or inpatient evaluation. I discussed with the patient/guardian the need to see the primary care provider for further evaluation of the symptoms. 21:03 Response to treatment: the patient's symptoms have markedly improved after treatment. snw 05/20 18:14 Order name: Flu snw 05/20 18:45 Order name: Influenza Screen (A ; Complete Time: 18:50 EDMS 05/20 18:14 Order name: Chest Pa And Lat (2 Views) XRAY; Complete Time: 19:17 snw 05/20 19:15 Order name: CBC with Diff; Complete Time: 19:57 snw 05/20 19:15 Order name: Chem 7; Complete Time: 20:06 snw 05/20 19:15 Order name: BNP; Complete Time: 20:06 snw 05/20 18:32 Order name: EKG; Complete Time: 18:33 snw 05/20 18:32 Order name: EKG - Nurse/Tech; Complete Time: 19:26 snw 05/20 19:17 Order name: SL; Complete Time: 19:45 snw EC:18 Rate is 103 beats/min. Rhythm is irregularly irregular. QT interval is normal. Clinical snw impression: Atrial Fibrillation. Administered Medications: 19:45 Drug: Metoprolol TARTRATE (Lopressor) 50 mg Route: PO; rr5 21:01 Follow up: Response: No adverse reaction rr5 19:46 Drug: Lasix 40 mg Route: IVP; Site: right hand; rr5 20:40 Follow up: Response: No adverse reaction; Other; positive urine output. rr5 20:20 Drug: Requip 2 mg Route: PO; rr5 21:01 Follow up: Response: No adverse reaction rr5 Disposition: 05/21 08:30 Co-signature as Attending Physician, Nicolas Billy MD I agree with the assessment and kdr plan of care. Disposition: 05/20/19 20:13 Discharged to Home. Impression: Unspecified systolic (congestive) heart failure, Atrial fibrillation and flutter, Patient's unintentional underdosing of medication regimen for other reason. - Condition is Stable. - Discharge Instructions: Atrial Fibrillation, Heart Failure, Medicine Refill at the Emergency Department, Form - Daily Diabetes Record, Form - Daily Weight Record. - Prescriptions for pramipexole 0.125 mg Oral tablet - take 1 tablet by ORAL route At bedtime 2-3 hours before bedtime; 30 tablet. Metoprolol Tartrate 50 mg Oral Tablet - take 1 tablet by ORAL route 2 times per day take with meal; 10 tablet. Albuterol Sulfate 90 mcg/actuation - inhale 1-2 puff by INHALATION route every 4-6 hours; 1 Inhaler. - Medication Reconciliation Form, Thank You Letter, Antibiotic Education, Prescription Opioid Use form. - Follow up: Emergency Department; When: As needed; Reason: Worsening of condition. Follow up: Private Physician; When: 2 - 3 days; Reason: Recheck today's complaints, Continuance of care, Re-evaluation by your physician. Signatures: Dispatcher [employer] Nicolas Brooks MD MD kdr Kylah Singh, CRESTER-C CRESTER-Csnw Kacy March RN RN tw2 Neptali German RN RN rr5 Corrections: (The following items were deleted from the chart) 05/20 21:12 20:13 05/20/2019 20:13 Discharged to Home. Impression: Unspecified systolic rr5 (congestive) heart failure; Atrial fibrillation and flutter; Patient's unintentional underdosing of medication regimen for other reason. Condition is Stable. Forms are Medication Reconciliation Form, Thank You Letter, Antibiotic Education, Prescription Opioid Use. Follow up: Emergency Department; When: As needed; Reason: Worsening of condition. Follow up: Private Physician; When: 2 - 3 days; Reason: Recheck today's complaints, Continuance of care, Re-evaluation by your physician. snw
[2019-05-20] MEDS ORDERED: ROPINIROLE HCL 1 MG TAB ONE ×2 (20:18→20:22)
[2019-05-20 21:20] VITALS: O2SAT 98
[2019-05-20 21:21] VITALS: BP 123/70; TEMP 97.6
--- NOTE | 2019-05-21 10:10 | EKG ---
Test Date: 2019-05-20 Test Time: 19:16:23 Drug Room Clerk: RR MEASUREMENT RESULTS: Intervals: Rate: 103 IA: QRSD: 68 QT: 354 QTc: 463 [place]: P: IA: QRS: 108 T: 2 INTERPRETIVE STATEMENTS: Atrial fibrillation with rapid ventricular response Rightward axis Nonspecific T wave abnormality, probably digitalis effect Abnormal ECG Compared to ECG 04/04/2019 17:06:31 Possible ischemia no longer present T-wave abnormality still present Electronically Signed On 05-21-19 10:08:47 HAT COPYIST by Khurram Byers
== END 2019-05-20 21:12 | disposition home or self-care (01) ==
LOC: ER 17:37
DX: I50.20 Unspecified systolic (congestive) heart failure (principal); I48.91 Unspecified atrial fibrillation; I48.92 Unspecified atrial flutter; Z91.138 Patient's unintentional underdosing of medication regimen for other reason; I10 Essential (primary) hypertension; E11.9 Type 2 diabetes mellitus without complications; Z79.01 Long term (current) use of anticoagulants; Z79.4 Long term (current) use of insulin
CPT/HCPCS: 93005; 85025; 80048; 36415; 83880; 87804 ×2; 71046; 96374; 99284; J1940

== ENCOUNTER 2019-06-01 18:39 | Emergency (ER) | payer OTHER ==
[2019-06-01] MEDS ORDERED: IPRATROPIUM BROM 0.5MG/2.5ML ONE (20:03)
[2019-06-01] MEDS ORDERED: ALBUTEROL 2.5 MG/3 ML NEB SOL ONE (20:03)
[2019-06-01 20:56] LABS: Absolute Lymphocytes (CBC) 1.2 K/uL (0.7-4.9); Basophils % 0.7 % (0-1.3); Hematocrit 38.7 % (36.0-45.0); Lymphocytes % 14.3 % (15.3-44.8); RBC Red Blood Cell Count 4.12 M/uL (3.86-4.86)
--- NOTE | 2019-06-01 20:56 | RAD REPORT ---
EXAM DESCRIPTION: Fran Single View06/01/2019 8:28 pm CLINICAL HISTORY: Chest pain COMPARISON: April 2019 FINDINGS: The lungs appear clear of acute infiltrate. The heart is mildly to moderately enlarged. Postsurgical changes involve the chest.
[2019-06-01 21:00] LABS: ALT/SGPT 21 U/L (12-78); AST/SGOT 28 U/L (15-37); Albumin 3.4 g/dL (3.4-5.0); Alkaline Phosphatase 129 U/L (45-117); BUN Blood Urea Nitrogen 19 mg/dL (7-18); Bicarbonate 30 mmol/L (21-32); Bilirubin Direct 0.2 mg/dL (0-0.2); Bilirubin Total 0.5 mg/dL (0.2-1.0); CKMB Creatine Kinase MB 2.6 ng/mL (0.3-3.6); Creatine Phosphokinase 559 U/L (26-192); Glucose Level 290 mg/dL (74-106); Lipase 127 U/L (73-393); Magnesium 1.9 mg/dL (1.8-2.4); NT PRO-BNP 1240 pg/mL (<125); Protein, Total 7.7 g/dL (6.4-8.2); Sodium Level 136 mmol/L (136-145); Troponin (Emerg Dept Use Only) < 0.02 ng/mL (0.0-0.045)
[2019-06-01 21:19] LABS: Protime INR 1.19
[2019-06-01] MEDS ORDERED: METHYLPREDNISOLONE 125 MG INJ ONE (21:34)
--- NOTE | 2019-06-01 21:45 | EDPHYS ---
Physician Documentation [facility] Name: Kandice Elizabeth Age: 63 yrs Sex: Female : 1955 Arrival Date: 06/01/2019 Time: 18:41 Bed 14 Private MD: ED Physician Robert Rodriguez HPI: 06/01 06:44 This 63 yrs old Female presents to ER via Wheelchair with complaints of tw4 Fever, Congestion. 06:44 The patient reports fever, not measured (subjective). Onset: The symptoms/episode tw4 began/occurred yesterday. Modifying factors: there are no obvious modifying factors. Associated signs and symptoms: Pertinent positives: shortness of breath. Severity of symptoms: At their worst the symptoms were moderate in the emergency department the symptoms have improved. The patient has not experienced similar symptoms in the past. Historical: - Allergies: 05/31 18:56 No Known Allergies; ss - Home Meds: 18:56 Advair Diskus 250-50 mcg/dose Inhl dsdv 1 puff 2 times per day [Active]; Eliquis 5 mg ss Oral tab 1 tab 2 times per day [Active]; furosemide 40 mg Oral tab 1 tab 2 times per day [Active]; metoprolol tartrate 50 mg Oral tab 1 tab 2 times per day [Active]; montelukast 10 mg Oral tab 1 tab once daily [Active]; Novolin N 100 unit/mL Sub-Q susp [Active]; Novolin R 40 units, SUBQ twice daily Sub-Q [Active]; pramipexole 0.25 mg Oral tab 1 tab twice daily [Active]; - PMHx: 18:56 Atrial Fib; Brain bleed; CHF; Diabetes - IDDM; Hypertension; ss - PSHx: 18:56 bypass surgery; ss - Immunization history:: Adult Immunizations up to date. - Social history:: Smoking status: Patient denies any tobacco usage or history of. ROS: 06/01 06:44 Constitutional: Negative for fever, chills, and weight loss, Eyes: Negative for injury, tw4 pain, redness, and discharge, Cardiovascular: Negative for chest pain, palpitations, and edema. Abdomen/GI: Negative for abdominal pain, nausea, vomiting, diarrhea, and constipation, Back: Negative for injury and pain, MS/Extremity: Negative for injury and deformity, Skin: Negative for injury, rash, and discoloration, Neuro: Negative for headache, weakness, numbness, tingling, and seizure. Respiratory: Positive for cough, shortness of breath, wheezing, Negative for dyspnea on exertion, hemoptysis, orthopnea, pleurisy. Exam: 06:42 Constitutional: This is a well developed, well nourished patient who is awake, alert, tw4 and in no acute distress. Head/Face: Normocephalic, atraumatic. Neck: Trachea midline, no thyromegaly or masses palpated, and no cervical lymphadenopathy. Supple, full range of motion without nuchal rigidity, or vertebral point tenderness. No Meningismus. Chest/axilla: Normal chest wall appearance and motion. Nontender with no deformity. No lesions are appreciated. Cardiovascular: Regular rate and rhythm with a normal S1 and S2. No gallops, murmurs, or rubs. Normal PMI, no JVD. No pulse deficits. Abdomen/GI: Soft, non-tender, with normal bowel sounds. No distension or tympany. No guarding or rebound. No evidence of tenderness throughout. Back: No spinal tenderness. No costovertebral tenderness. Full range of motion. Skin: Warm, dry with normal turgor. Normal color with no rashes, no lesions, and no evidence of cellulitis. MS/ Extremity: Pulses equal, no cyanosis. Neurovascular intact. Full, normal range of motion. Vital Signs: 05/31 18:54 BP 139 / 84; Pulse 104; Resp 20; Temp 99.0(TE); Pulse Ox 98% on R/A; Weight 96.16 kg; ss Height 5 ft. 0 in. (152.40 cm); Pain 0/10; 19:40 BP 157 / 88 LA (/reg); Pulse 106; Resp 28 S; Temp 98.2; Pulse Ox 97% on R/A; Pain 2/10; jp3 20:30 BP 145 / 78; Pulse 112; Resp 24; Pulse Ox 98% on R/A; mg2 21:48 Pulse 102; Resp 20; Temp 98.5; Pulse Ox 95% on R/A; mg2 22:26 BP 149 / 80; mg2 18:54 Body Mass Index 41.40 (96.16 kg, 152.40 cm) ss 19:40 Left Forearm jp3 MDM: 19:41 Patient medically screened. 06/01 06:44 Differential diagnosis: viral Infection, bacterial infection, bronchitis, pneumonia tw4 UTI. Data reviewed: vital signs, nurses notes, lab test result(s), cardiac enzymes, CBC, hepatic panel. Data interpreted: Pulse oximetry: Interpretation: normal. Test interpretation: by ED physician or midlevel provider: ECG, plain radiologic studies. Counseling: I had a detailed discussion with the patient and/or guardian regarding: the historical points, exam findings, and any diagnostic results supporting the discharge/admit diagnosis, lab results, radiology results. Medication response: albuterol nebulizer treatment(s) relieved the patient's symptoms. The patient is no longer wheezing. Response to treatment: the patient's symptoms have markedly improved after treatment, and as a result, I will discharge patient. Special discussion: I discussed with the patient/guardian in detail that at this point there is no indication for admission to the hospital. It is understood, however, that if the symptoms persist or worsen the patient needs to return immediately for re-evaluation. ED course: Pt states she feels better after nebulizer treatment . 05/31 19:42 Order name: Flu; Complete Time: 21:04 05/31 21:13 Interpretation: Within normal limits. 05/31 19:42 Order name: Strep; Complete Time: 21:04 05/31 21:13 Interpretation: Within normal limits. 05/31 19:54 Order name: Blood Culture Adult (2) 05/31 19:54 Order name: BMP; Complete Time: 21:04 05/31 21:05 Interpretation: Normal except: GLUC 290; BUN 19; GFR 62. 05/31 19:54 Order name: CBC with Diff; Complete Time: 21:04 05/31 21:05 Interpretation: Normal except: MCV 93.8; RDW 16.6; LYM% 14.3; EOSINOPHIL % 4.7. 05/31 19:54 Order name: Ckmb; Complete Time: 21:04 05/31 21:14 Interpretation: Within normal limits: CKMB 2.6. 05/31 19:54 Order name: CPK; Complete Time: 21:04 05/31 21:05 Interpretation: Normal except: CPK 559. 05/31 19:54 Order name: D-Dimer 05/31 19:54 Order name: Hepatic Function; Complete Time: 21:04 05/31 21:06 Interpretation: Normal except: ALK 129; GLOB 4.3; A/G 0.8. 05/31 19:54 Order name: Lipase; Complete Time: 21:04 05/31 21:14 Interpretation: Within normal limits: LIP 127. 05/31 19:54 Order name: Magnesium; Complete Time: 21:04 05/31 21:14 Interpretation: Within normal limits: MG 1.9. 05/31 19:54 Order name: NT PRO-BNP; Complete Time: 21:04 05/31 21:12 Interpretation: Normal except: NT PRO-BNP 1240. 05/31 19:54 Order name: PT-INR 05/31 19:54 Order name: Ptt, Activated 05/31 19:54 Order name: XRAY CXR (1 view); Complete Time: 21:04 05/31 19:54 Order name: Troponin (emerg Dept Use Only); Complete Time: 21:04 05/31 19:54 Order name: EKG; Complete Time: 19:55 05/31 19:54 Order name: Cardiac monitoring; Complete Time: 20:02 05/31 19:54 Order name: EKG - Nurse/Tech; Complete Time: 20:02 05/31 19:54 Order name: IV Saline Lock; Complete Time: 20:33 05/31 19:54 Order name: Labs collected and sent; Complete Time: 20:33 05/31 19:54 Order name: O2 Per Protocol; Complete Time: 20:02 05/31 19:54 Order name: O2 Sat Monitoring; Complete Time: 20:02 05/31 20:45 Order name: Throat Culture EDMS EC:42 Rate is 114 beats/min. Rhythm is irregularly irregular. QRS [place] is Normal. TN interval tw4 is normal. QRS interval is normal. QT interval is normal. No Q waves. T waves are Flattened in leads V5, V6. No ST changes noted. Clinical impression: Atrial Fibrillation. Interpreted by me. Reviewed by me. Administered Medications: 05/31 20:15 Drug: DuoNeb (3:1) (2.5 mg - 0.5 mg) 3 ml Route: Nebulizer; mg2 21:47 Follow up: Response: No adverse reaction mg2 21:49 Drug: SOLU-Medrol 125 mg Route: IVP; Site: right upper arm; mg2 21:49 Follow up: Response: No adverse reaction mg2 Disposition: 06/01 06:46 Chart complete. tw4 Disposition: 06/01/19 21:44 Discharged to Home. Impression: Persistent atrial fibrillation, Acute bronchospasm, Acute upper respiratory infection, unspecified. - Condition is Stable. - Discharge Instructions: Bronchospasm, Adult, Upper Respiratory Infection, Pediatric, Viral Respiratory Infection, Cool Mist Vaporizer. - Prescriptions for Tessalon Perles 100 mg Oral Capsule - take 1 capsule by ORAL route every 8 hours As needed; 15 capsule. Albuterol Sulfate 2.5 mg /3 mL (0.083 %) Inhalation Solution for Nebulization - inhale 1 unit by NEBULIZATION route every 8 hours As needed; 1 box. Medrol (Vincent) 4 mg Oral Tablets, Dose Pack - take 1 tablet by ORAL route as directed - follow package instructions; 1 packet. - Medication Reconciliation Form, Thank You Letter, Antibiotic Education, Prescription Opioid Use form. - Follow up: Private Physician; When: Upon discharge from the Emergency Department; Reason: Recheck today's complaints, Continuance of care, Re-evaluation by your physician. - Problem is an ongoing problem. - Symptoms are unchanged. Signatures: Dispatcher [employer] EDAK Samara Ardon RN RN Robert Rodriguez MD MD tw4 Merrill Montiel RN RN mg2 Corrections: (The following items were deleted from the chart) 05/31 22:27 21:44 06/01/2019 21:44 Discharged to Home. Impression: Persistent atrial fibrillation; mg2 Acute bronchospasm; Acute upper respiratory infection, unspecified. Condition is Stable. Forms are Medication Reconciliation Form, Thank You Letter, Antibiotic Education, Prescription Opioid Use. Follow up: Private Physician; When: Upon discharge from the Emergency Department; Reason: Recheck today's complaints, Continuance of care, Re-evaluation by your physician. Problem is an ongoing problem. Symptoms are unchanged. tw4
--- NOTE | 2019-06-01 21:45 | ER ---
Nurse's Notes [facility] Name: Kandice Elizabeth Age: 63 yrs Sex: Female : 1955 Arrival Date: 06/01/2019 Time: 18:41 Bed 14 Private MD: Diagnosis: Persistent atrial fibrillation;Acute bronchospasm;Acute upper respiratory infection, unspecified Presentation: 05/31 18:54 Chief complaint: Patient states: cough, congestion, shortness of breath and sore throat ss that began 2 weeks ago. Coronavirus screen: The patient has NOT traveled to a country currently being monitored by the [facility] within the last 14 days. Proceed with normal triage procedures. Ebola Screen: Patient denies exposure to infectious person. Patient denies travel to an Ebola-affected area in the 21 days before illness onset. Initial Sepsis Screen: Does the patient meet any 2 criteria? No. Patient's initial sepsis screen is negative. Does the patient have a suspected source of infection? No. Patient's initial sepsis screen is negative. Risk Assessment: Do you want to hurt yourself or someone else? Patient reports no desire to harm self or others. 18:54 Method Of Arrival: Wheelchair ss 18:54 Acuity: COLBY 3 ss Historical: - Allergies: 18:56 No Known Allergies; ss - Home Meds: 18:56 Advair Diskus 250-50 mcg/dose Inhl dsdv 1 puff 2 times per day [Active]; Eliquis 5 mg ss Oral tab 1 tab 2 times per day [Active]; furosemide 40 mg Oral tab 1 tab 2 times per day [Active]; metoprolol tartrate 50 mg Oral tab 1 tab 2 times per day [Active]; montelukast 10 mg Oral tab 1 tab once daily [Active]; Novolin N 100 unit/mL Sub-Q susp [Active]; Novolin R 40 units, SUBQ twice daily Sub-Q [Active]; pramipexole 0.25 mg Oral tab 1 tab twice daily [Active]; - PMHx: 18:56 Atrial Fib; Brain bleed; CHF; Diabetes - IDDM; Hypertension; ss - PSHx: 18:56 bypass surgery; ss - Immunization history:: Adult Immunizations up to date. - Social history:: Smoking status: Patient denies any tobacco usage or history of. Screenin:51 Abuse screen: Denies threats or abuse. Denies injuries from another. Nutritional mg2 screening: No deficits noted. Tuberculosis screening: No symptoms or risk factors identified. Fall Risk IV access (20 points). Assessment: 21:00 General: Appears in no apparent distress. comfortable, Behavior is calm, cooperative. mg2 Pain: Denies pain. Neuro: Level of Consciousness is awake, alert, obeys commands, Oriented to person, place, time, situation. Cardiovascular: Capillary refill < 3 seconds Patient's skin is warm and dry. Respiratory: Airway is patent Respiratory effort is even, unlabored, Respiratory pattern is regular, symmetrical, Breath sounds with wheezes in right upper lobe and left upper lobe. GI: No signs and/or symptoms were reported involving the gastrointestinal system. : No signs and/or symptoms were reported regarding the genitourinary system. EENT: No signs and/or symptoms were reported regarding the EENT system. Derm: redness and swelling in both legs. Musculoskeletal: Circulation, motion, and sensation intact. Capillary refill < 3 seconds. 22:00 Reassessment: Patient appears in no apparent distress at this time. Patient denies pain mg2 at this time. Patient states feeling better. Patient states symptoms have improved. Vital Signs: 18:54 BP 139 / 84; Pulse 104; Resp 20; Temp 99.0(TE); Pulse Ox 98% on R/A; Weight 96.16 kg; ss Height 5 ft. 0 in. (152.40 cm); Pain 0/10; 19:40 BP 157 / 88 LA (/reg); Pulse 106; Resp 28 S; Temp 98.2; Pulse Ox 97% on R/A; Pain 2/10; jp3 20:30 BP 145 / 78; Pulse 112; Resp 24; Pulse Ox 98% on R/A; mg2 21:48 Pulse 102; Resp 20; Temp 98.5; Pulse Ox 95% on R/A; mg2 22:26 BP 149 / 80; mg2 18:54 Body Mass Index 41.40 (96.16 kg, 152.40 cm) ss 19:40 Left Forearm jp3 ED Course: 18:41 Patient arrived in ED. rg4 18:55 Triage completed. ss 18:56 Arm band placed on right wrist. ss 19:18 Robert Rodriguez MD is Attending Physician. tw4 19:30 Merrill Montiel, RN is Primary Nurse. mg2 19:45 Patient maintains SpO2 saturation greater than 95% on room air. jp3 19:45 EKG done, by ED staff, reviewed by Robert Rodriguez MD. jp3 19:50 Flu and/or RSV swab sent to lab. Strep swab sent to lab. jp3 19:58 Safety checks: Family/friend present: yes. Bed in low position. Call light in reach. jp3 Verbal reassurance given. gambling monitor on. Pulse ox on. NIBP on. 20:15 Inserted saline lock: 22 gauge in right upper arm, using aseptic technique. Blood mg2 collected. 20:28 XRAY CXR (1 view) In Process Unspecified. EDMS 21:54 No provider procedures requiring assistance completed. mg2 22:26 IV discontinued, intact, bleeding controlled, No redness/swelling at site. Pressure mg2 dressing applied. Administered Medications: 20:15 Drug: DuoNeb (3:1) (2.5 mg - 0.5 mg) 3 ml Route: Nebulizer; mg2 21:47 Follow up: Response: No adverse reaction mg2 21:49 Drug: SOLU-Medrol 125 mg Route: IVP; Site: right upper arm; mg2 21:49 Follow up: Response: No adverse reaction mg2 Outcome: 21:44 Discharge ordered by . tw4 22:26 Discharged to home via wheelchair, with family. mg2 22:26 Condition: stable 22:26 Discharge instructions given to patient, family, Instructed on discharge instructions, follow up and referral plans. medication usage, Demonstrated understanding of instructions, follow-up care, medications, Prescriptions given X 4. 22:27 Patient left the ED. mg2 Signatures: Dispatcher [employer] EDMS Samara Ardon, RN RN Lashon Lakhani rg4 Robert Rodriguez MD MD tw4 Merrill Montiel, MARIBELL RN mg2 David Woo jp3
[2019-06-01 22:38] VITALS: TEMP 98.5; O2SAT 95
[2019-06-01 22:39] VITALS: BP 149/80
--- NOTE | 2019-06-02 12:13 | EKG ---
Test Date: 2019-06-01 Test Time: 18:41:48 Card Grader: LAY MEASUREMENT RESULTS: Intervals: Rate: 114 GA: QRSD: 78 QT: 340 QTc: 468 [place]: P: GA: QRS: 112 T: -37 INTERPRETIVE STATEMENTS: Atrial fibrillation with rapid ventricular response Left posterior fascicular block T wave abnormality, consider inferior ischemia Abnormal ECG Compared to ECG 05/20/2019 19:16:23 Left posterior fascicular block now present Possible ischemia now present Right-axis deviation no longer present T-wave abnormality still present Electronically Signed On 06-02-19 12:13:23 CDT by Khurram Byers
== END 2019-06-01 22:27 | disposition home or self-care (01) ==
LOC: ER 18:39
DX: J06.9 Acute upper respiratory infection, unspecified (principal); J98.01 Acute bronchospasm; I48.19 Other persistent atrial fibrillation; I10 Essential (primary) hypertension; E11.9 Type 2 diabetes mellitus without complications
CPT/HCPCS: 93005; 87040 ×2; 87070; 85025; 80048; 36415; 83735; 82550; 85610; 85379; 80076; 87081; 85730; 84484; 82553; 83690; 83880; 87804 ×2; 71045; 94640; 96374; 99285; J2930

== ENCOUNTER 2019-06-21 16:44 | Emergency (ER) | payer OTHER ==
[2019-06-21 18:18] LABS: Absolute Lymphocytes (CBC) 0.8 K/uL (0.7-4.9); Basophils % 0.9 % (0-1.3); Hematocrit 43.4 % (36.0-45.0); Lymphocytes % 12.2 % (15.3-44.8); MPV 8.4 fL (7.6-11.3); RBC Red Blood Cell Count 4.93 M/uL (3.86-4.86)
[2019-06-21 18:20] LABS: Protime INR 1.11
[2019-06-21] MEDS ORDERED: METOPROLOL TAR 50 MG TAB ONE (18:33)
[2019-06-21 18:36] LABS: ALT/SGPT 27 U/L (12-78); AST/SGOT 29 U/L (15-37); Albumin 3.5 g/dL (3.4-5.0); Alkaline Phosphatase 124 U/L (45-117); BUN Blood Urea Nitrogen 12 mg/dL (7-18); Bicarbonate 33 mmol/L (21-32); Bilirubin Direct 0.1 mg/dL (0-0.2); Bilirubin Total 0.5 mg/dL (0.2-1.0); Glucose Level 244 mg/dL (74-106); NT PRO-BNP 616 pg/mL (<125); Potassium 3.6 mmol/L (3.5-5.1); Protein, Total 7.4 g/dL (6.4-8.2); Sodium Level 140 mmol/L (136-145); Troponin (Emerg Dept Use Only) < 0.02 ng/mL (0.0-0.045)
--- NOTE | 2019-06-21 18:53 | RAD REPORT ---
EXAM DESCRIPTION: Fran Single View06/21/2019 6:23 pm CLINICAL HISTORY: Hypertension/swelling COMPARISON: June 01, 2019 FINDINGS: The lungs appear clear of acute infiltrate. The heart is moderately enlarged. Postsurgical changes involve the chest. IMPRESSION: No acute abnormalities displayed
--- NOTE | 2019-06-21 18:54 | RAD REPORT ---
EXAM DESCRIPTION: USExtrem Venous W Compress Bil06/21/2019 6:35 pm CLINICAL HISTORY: Bilateral leg swelling COMPARISON: none FINDINGS: The common femoral, superficial femoral, popliteal and posterior tibial veins bilaterally are compressible and demonstrate augmentation. Doppler demonstrates good flow. IMPRESSION: No evidence of deep venous thrombosis involving either lower extremity.
[2019-06-21] MEDS ORDERED: FUROSEMIDE 20 MG/ 2ML VIAL ONE (19:16)
--- NOTE | 2019-06-21 19:33 | EDPHYS ---
Physician Documentation [facility] Name: Kandice Elizabeth Age: 63 yrs Sex: Female : 1955 Arrival Date: 06/21/2019 Time: 16:47 Bed 7 Private MD: ED Physician Freddy Hall HPI: 06/20 17:56 This 63 yrs old Female presents to ER via Wheelchair with complaints of Leg cp Swelling. 17:56 The patient presents with swelling, tenderness. The complaints affect the right lower cp leg and left lower leg. 17:56 Onset: The symptoms/episode began/occurred weeks. cp 17:56 Associated signs and symptoms: Pertinent positives: warmth, Pertinent negatives fever. cp Treatment prior to arrival includes: no previous treatment. Patient reports running out of blood pressure medication, Metoprolol, 3 days ago. Patient reports recent move to [place] from [place] and not having found a primary physician yet. Historical: - Allergies: 16:55 No Known Allergies; ss - Home Meds: 16:55 Advair Diskus 250-50 mcg/dose Inhl dsdv 1 puff 2 times per day [Active]; Eliquis 5 mg ss Oral tab 1 tab 2 times per day [Active]; furosemide 40 mg Oral tab 1 tab 2 times per day [Active]; metoprolol tartrate 50 mg Oral tab 1 tab 2 times per day [Active]; montelukast 10 mg Oral tab 1 tab once daily [Active]; Novolin N 100 unit/mL Sub-Q susp [Active]; Novolin R 40 units, SUBQ twice daily Sub-Q [Active]; pramipexole 0.25 mg Oral tab 1 tab twice daily [Active]; - PMHx: 16:55 Atrial Fib; Brain bleed; CHF; Diabetes - IDDM; Hypertension; ss - PSHx: 16:55 bypass surgery; ss - Immunization history:: Adult Immunizations up to date. - Social history:: Smoking status: Patient denies any tobacco usage or history of. ROS: 18:05 Constitutional: Negative for body aches, chills, fever, poor PO intake. cp 18:05 Eyes: Negative for injury, pain, redness, and discharge. cp 18:05 ENT: Negative for drainage from ear(s), ear pain, sore throat, difficulty swallowing, difficulty handling secretions. 18:05 Cardiovascular: Positive for edema, Negative for chest pain, palpitations. 18:05 Respiratory: Negative for cough, shortness of breath, wheezing. 18:05 Abdomen/GI: Negative for abdominal pain, nausea, vomiting, and diarrhea, constipation, black/tarry stool, rectal bleeding. 18:05 Back: Negative for pain at rest, pain with movement. 18:05 MS/extremity: Negative for injury or acute deformity. 18:05 Skin: Positive for erythema, swelling, of the left lower leg and right lower leg. 18:05 Neuro: Negative for altered mental status, dizziness, headache, syncope, weakness. 18:05 All other systems are negative. Exam: 17:58 ECG was reviewed by the Attending Physician. cp 18:10 Constitutional: The patient appears in no acute distress, alert, awake, comfortable, cp non-diaphoretic, non-toxic, well developed, well nourished, obese. 18:10 Head/Face: Normocephalic, atraumatic. cp 18:10 Eyes: Periorbital structures: appear normal, Pupils: equal, round, and reactive to light and accomodation, Extraocular movements: intact throughout, Conjunctiva: normal, no exudate, no injection, Sclera: no appreciated abnormality, Lids and lashes: appear normal, bilaterally. 18:10 ENT: External ear(s): are unremarkable, Ear canal(s): are normal, clear, TM's: bulging, is not appreciated, bilaterally, dullness, is not appreciated, bilaterally, erythema, is not appreciated, bilaterally, Nose: is normal, Mouth: is normal, Posterior pharynx: is normal, airway is patent, no erythema, no exudate. 18:10 Neck: ROM/movement: is normal, is supple, without pain, no range of motions limitations. 18:10 Chest/axilla: Inspection: normal, Palpation: is normal, no crepitus, no tenderness. 18:10 Cardiovascular: Rate: tachycardic, Rhythm: irregular, JVD: is not appreciated. 18:10 Respiratory: the patient does not display signs of respiratory distress, Respirations: normal, no use of accessory muscles, no retractions, labored breathing, is not present, Breath sounds: are clear throughout, no decreased breath sounds, no stridor, no wheezing. 18:10 Abdomen/GI: Inspection: abdomen appears normal, Palpation: abdomen is soft and non-tender, in all quadrants. 18:10 Skin: mild erythema, mild swelling and multiple superficial wounds noted bilateral lower leg. 18:10 Neuro: Orientation: to person, place \T\ time. Mentation: is normal, Cerebellar function: is grossly normal, Motor: moves all fours, strength is normal, Sensation: is normal. Vital Signs: 16:52 BP 147 / 101; Pulse 140; Resp 19; Temp 99.0(O); Pulse Ox 96% on R/A; Weight 96.16 kg; ss Height 5 ft. 0 in. (152.40 cm); Pain 5/10; 17:50 BP 173 / 92; Pulse 130; Resp 18; Pulse Ox 97% ; bp 18:32 BP 191 / 101; Pulse 126; Resp 23; Pulse Ox 99% ; bp 19:30 BP 160 / 91; Pulse 103; Resp 20; Pulse Ox 95% ; ah 16:52 Body Mass Index 41.40 (96.16 kg, 152.40 cm) ss MDM: 16:58 Patient medically screened. yolanda 18:00 Differential diagnosis: cellulitis, DVT, CHF, dependent edema. 19:30 Data reviewed: vital signs, nurses notes, lab test result(s), EKG, radiologic studies, cp plain films, ultrasound. 19:30 Test interpretation: by ED physician or midlevel provider: ECG. Counseling: I had a cp detailed discussion with the patient and/or guardian regarding: the historical points, exam findings, and any diagnostic results supporting the discharge/admit diagnosis, the presence of at least one elevated blood pressure reading (>120/80) during this emergency department visit, lab results, radiology results, the need for outpatient follow up, an framing manager, to return to the emergency department if symptoms worsen or persist or if there are any questions or concerns that arise at home. Response to treatment: the patient's symptoms have mildly improved after treatment, and as a result, I will discharge patient. Special discussion: need for family physician for medication refills. 06/20 17:30 Order name: Basic Metabolic Panel; Complete Time: 18:53 cp 06/20 18:53 Interpretation: Normal except: CO2 33; GLUC 244; GFR 60. 06/20 17:30 Order name: CBC with Diff; Complete Time: 18:53 cp / 18:54 Interpretation: Normal except: RBC 4.93; MCV 88.1; RDW 16.0; MARIA LUZ% 76.9; LYM% 12.2. cp / 17:30 Order name: LFT's; Complete Time: 18:53 cp / 18:54 Interpretation: Normal except: ALK 124; GLOB 3.9; A/G 0.9. cp / 17:30 Order name: Magnesium; Complete Time: 18:53 cp / 17:30 Order name: NT PRO-BNP; Complete Time: 18:53 cp 06/20 17:30 Order name: PT-INR; Complete Time: 18:53 cp / 17:30 Order name: Troponin (emerg Dept Use Only); Complete Time: 18:53 cp / 19:07 Interpretation: TROPED < 0.02; Reviewed. 06/20 17:30 Order name: XRAY Chest (1 view); Complete Time: 19:06 cp 06/20 19:06 Interpretation: Report review. cp 06/20 17:30 Order name: Blood Culture Adult (2) cp 06/20 17:30 Order name: Procalcitonin; Complete Time: 18:53 cp 06/20 17:30 Order name: Lactate; Complete Time: 18:53 cp 06/20 17:31 Order name: US Extremity Venous W Compression Sushil; Complete Time: 19:06 cp 06/20 19:07 Interpretation: Report reviewed. cp 06/20 17:30 Order name: EKG; Complete Time: 17:33 cp 06/20 17:30 Order name: Cardiac monitoring; Complete Time: 18:20 cp 06/20 17:30 Order name: EKG - Nurse/Tech; Complete Time: 18:20 cp 06/20 17:30 Order name: IV Saline Lock; Complete Time: 18:20 cp 06/20 17:30 Order name: Labs collected and sent; Complete Time: 18:20 cp 06/20 17:30 Order name: O2 Per Protocol; Complete Time: 18:21 cp 06/20 17:30 Order name: O2 Sat Monitoring; Complete Time: 18:21 cp EC:58 Rate is 122 beats/min. Rhythm is irregular. QRS interval is normal. QT interval is cp normal. Clinical impression: Atrial Fibrillation. Interpreted by me. Reviewed by me. Administered Medications: 18:31 Drug: Metoprolol 50 mg Route: PO; bp 20:08 Follow up: Response: No adverse reaction 19:20 Drug: Lasix 20 mg Route: IVP; Site: left hand; ah 20:08 Follow up: Response: No adverse reaction Disposition: 06/21 07:37 Co-signature as Attending Physician, Freddy Hall MD I agree with the assessment and yolanda plan of care. Disposition: 06/21/19 19:32 Discharged to Home. Impression: Other local infections of skin and subcutaneous tissue - right lower leg and left lower leg, Hypertensive heart disease, Medication refill, Chronic atrial fibrillation. - Condition is Stable. - Discharge Instructions: Atrial Fibrillation, Cellulitis, Adult, Hypertension, Aspirin and Your Heart, Managing Your Hypertension. - Prescriptions for Eliquis 5 mg Oral tablet - take 1 tablet by ORAL route 2 times per day; 60 tablet. pramipexole 0.25 mg Oral tablet - take 1 tablet by ORAL route 2 times per day; 60 tablet. Bactroban 2 % Topical Cream - Apply to affected area 1 application by TOPICAL route every 12 hours apply to lower legs as directed; 30 gram. Lasix 40 mg Oral Tablet - take 1 tablet by ORAL route every 12 hours for 30 days; 60 tablet. Doxycycline Hyclate 100 mg Oral Tablet - take 1 tablet by ORAL route every 12 hours; 20 tablet. Metoprolol Tartrate 50 mg Oral Tablet - take 1 tablet by ORAL route 2 times per day take with meal; 60 tablet. Albuterol Sulfate 90 mcg/actuation - inhale 1-2 puff by INHALATION route every 4-6 hours; 1 Inhaler. Novolin N - inject 30 unit by SUBCUTANEOUS route 2 times per day; 1 vial. Novolin R 100 unit/mL Injection solution - inject 40 unit by SUBCUTANEOUS route 2 times per day; 1 vial. - Medication Reconciliation Form, Thank You Letter, Antibiotic Education, Prescription Opioid Use form. - Follow up: Private Physician; When: 2 - 3 days; Reason: Recheck today's complaints. - Problem is new. - Symptoms have improved. Signatures: Dispatcher [employer] Freddy Schmitt MD MD cha Smirch, Shelby, RN RN Freddy Suazo PA PA cp Peltier, Brian, RN RN Christine Montaño RN RN Corrections: (The following items were deleted from the chart) 06/20 19:32 19:32 06/21/2019 19:32 Discharged to Home. Impression: Other local infections of skin cp and subcutaneous tissue - right lower leg and left lower leg; Hypertensive heart disease; Medication refill. Condition is Stable. Forms are Medication Reconciliation Form, Thank You Letter, Antibiotic Education, Prescription Opioid Use. Follow up: Private Physician; When: 2 - 3 days; Reason: Recheck today's complaints. Problem is new. Symptoms have improved. cp 20:09 19:32 06/21/2019 19:32 Discharged to Home. Impression: Other local infections of skin ah and subcutaneous tissue - right lower leg and left lower leg; Hypertensive heart disease; Medication refill; Chronic atrial fibrillation. Condition is Stable. Forms are Medication Reconciliation Form, Thank You Letter, Antibiotic Education, Prescription Opioid Use. Follow up: Private Physician; When: 2 - 3 days; Reason: Recheck today's complaints. Problem is new. Symptoms have improved. cp
--- NOTE | 2019-06-21 19:33 | ER ---
Nurse's Notes [facility] Name: Kandice Elizabeth Age: 63 yrs Sex: Female : 1955 Arrival Date: 06/21/2019 Time: 16:47 Bed 7 Private MD: Diagnosis: Other local infections of skin and subcutaneous tissue-right lower leg and left lower leg;Hypertensive heart disease;Medication refill;Chronic atrial fibrillation Presentation: 06/20 16:52 Chief complaint: Patient states: redness and warmth to bilateral lower extremities x ss weeks. Pt states, "it's that cellulitis" Pt also reports she has been out of her BP medication for 3 days. Coronavirus screen: Patient denies fever greater than 100.4F, cough, shortness of breath, or difficulty breathing. Proceed with normal triage process. Ebola Screen: Patient denies exposure to infectious person. Patient denies travel to an Ebola-affected area in the 21 days before illness onset. Initial Sepsis Screen: Does the patient have a suspected source of infection? Yes: Skin breakdown/wound. Initial Sepsis Screen: Does the patient meet any 2 criteria? HR > 90 bpm. Risk Assessment: Do you want to hurt yourself or someone else? Patient reports no desire to harm self or others. 16:52 Method Of Arrival: Wheelchair ss 16:52 Acuity: COLBY 2 ss Triage Assessment: 17:02 General: Appears in no apparent distress. comfortable, obese, Behavior is cooperative, bp appropriate for age, anxious. Pain: Complains of pain in right leg and left leg. EENT: No deficits noted. Neuro: Level of Consciousness is awake, alert, obeys commands, Oriented to person, place, time, situation, Appropriate for age. Cardiovascular: Rhythm is atrial fibrillation with rapid ventricular response. Respiratory: No deficits noted. GI: No signs and/or symptoms were reported involving the gastrointestinal system. : No signs and/or symptoms were reported regarding the genitourinary system. Derm: No deficits noted. Musculoskeletal: No deficits noted. Historical: - Allergies: 16:55 No Known Allergies; ss - Home Meds: 16:55 Advair Diskus 250-50 mcg/dose Inhl dsdv 1 puff 2 times per day [Active]; Eliquis 5 mg ss Oral tab 1 tab 2 times per day [Active]; furosemide 40 mg Oral tab 1 tab 2 times per day [Active]; metoprolol tartrate 50 mg Oral tab 1 tab 2 times per day [Active]; montelukast 10 mg Oral tab 1 tab once daily [Active]; Novolin N 100 unit/mL Sub-Q susp [Active]; Novolin R 40 units, SUBQ twice daily Sub-Q [Active]; pramipexole 0.25 mg Oral tab 1 tab twice daily [Active]; - PMHx: 16:55 Atrial Fib; Brain bleed; CHF; Diabetes - IDDM; Hypertension; ss - PSHx: 16:55 bypass surgery; ss - Immunization history:: Adult Immunizations up to date. - Social history:: Smoking status: Patient denies any tobacco usage or history of. Screenin:04 Abuse screen: Denies threats or abuse. Denies injuries from another. Nutritional bp screening: No deficits noted. Tuberculosis screening: No symptoms or risk factors identified. Fall Risk None identified. Assessment: 17:04 General: SEE TRIAGE NOTE. bp 18:10 Reassessment: PIV IN PLACE, LABS IN PROCESS. PT REMAINS IN RVR. bp 18:32 Reassessment: U/S COMPLETED. RESULTS PENDING. PT REMAINS AFIB/RVR ON MONITOR. bp 19:15 Reassessment: Assisted Pt to the bathroom and back into the bed. Pt tolerated well. ah Lasix administered at this time per orders. Pt given BSC. No other needs voiced at this time. 19:55 Reassessment: Pt given discharge paper and instructions/prescriptions. Pt voiced understanding. Pt taken to restroom and pushed out to private vehicle. Tolerated well. Vital Signs: 16:52 BP 147 / 101; Pulse 140; Resp 19; Temp 99.0(O); Pulse Ox 96% on R/A; Weight 96.16 kg; Height 5 ft. 0 in. (152.40 cm); Pain 5/10; 17:50 BP 173 / 92; Pulse 130; Resp 18; Pulse Ox 97% ; bp 18:32 BP 191 / 101; Pulse 126; Resp 23; Pulse Ox 99% ; bp 19:30 BP 160 / 91; Pulse 103; Resp 20; Pulse Ox 95% ; ah 16:52 Body Mass Index 41.40 (96.16 kg, 152.40 cm) ED Course: 16:47 Patient arrived in ED. mr 16:54 Triage completed. ss 16:55 Arm band placed on right wrist. 16:56 Freddy Suazo PA is PHCP. cp 16:56 Freddy Hall MD is Attending Physician. cp 17:02 Andrew Miller, RN is Primary Nurse. bp 17:04 Patient has correct armband on for positive identification. Bed in low position. Call bp light in reach. Side rails up X2. 17:49 Initial lab(s) drawn, by me, sent to lab. First set of blood cultures drawn by me. dh3 Missed attempt(s): 20 gauge in right antecubital area. Bleeding controlled, band aid applied, catheter tip intact. 18:04 Second set of blood cultures drawn by md. dh3 18:17 Inserted saline lock: 22 gauge in left wrist, using aseptic technique. dh3 18:24 XRAY Chest (1 view) In Process Unspecified. EDMS 18:35 US Extremity Venous W Compression Sushil In Process Unspecified. EDMS 18:36 Ultrasound completed. Patient tolerated well. sg3 19:27 Nurse Practitioner and/or Physician Assistant Manager Retail to see patient. ah 19:55 No provider procedures requiring assistance completed. IV discontinued, intact, ah bleeding controlled, No redness/swelling at site. Pressure dressing applied. Administered Medications: 18:31 Drug: Metoprolol 50 mg Route: PO; bp 20:08 Follow up: Response: No adverse reaction ah 19:20 Drug: Lasix 20 mg Route: IVP; Site: left hand; ah 20:08 Follow up: Response: No adverse reaction Outcome: 19:32 Discharge ordered by . cp 19:55 Discharged to home via wheelchair. ah 19:55 Condition: good 19:55 Discharge instructions given to patient, Instructed on discharge instructions, follow up and referral plans. medication usage, Demonstrated understanding of instructions, follow-up care, medications, Prescriptions given X 9 20:09 Patient left the ED. Signatures: Dispatcher [employer] EDVA Ivone BarrettSamara, RN RN Freddy Suazo PA PA cp Herrera, Deanna 3 Andrew Miller, RN RN Kalyani Walterah sg3 Christine Ley RN RN Corrections: (The following items were deleted from the chart) 18:09 17:50 Pulse 130bpm; Resp 18bpm; Pulse Ox 97%; bp bp
[2019-06-21 20:49] VITALS: TEMP 99
[2019-06-21 20:51] VITALS: BP 191/101; O2SAT 99
--- NOTE | 2019-06-23 05:27 | EKG ---
Test Date: 2019-06-21 Test Time: 17:47:47 Computed Tomography Technologist: MARCELO MEASUREMENT RESULTS: Intervals: Rate: 122 ID: QRSD: [id number] QT: 336 QTc: 478 [place]: P: ID: QRS: [id number] T: 0 INTERPRETIVE STATEMENTS: Atrial fibrillation with rapid ventricular response Right axis deviation Nonspecific T wave abnormality Abnormal ECG Compared to ECG 06/01/2019 18:41:48 Right-axis deviation now present Left posterior fascicular block no longer present Possible ischemia no longer present T-wave abnormality still present Electronically Signed On 06-23-19 05:25:19 CDT by Khurram Byers
== END 2019-06-21 20:09 | disposition home or self-care (01) ==
LOC: ER 16:44
DX: L08.89 Other specified local infections of the skin and subcutaneous tissue (principal); I11.9 Hypertensive heart disease without heart failure; Z76.0 Encounter for issue of repeat prescription; I48.20 Chronic atrial fibrillation, unspecified; I10 Essential (primary) hypertension; E11.9 Type 2 diabetes mellitus without complications; I50.9 Heart failure, unspecified; Z79.4 Long term (current) use of insulin; Z79.01 Long term (current) use of anticoagulants
CPT/HCPCS: 93005; 87040 ×2; 85025; 80048; 36415; 83735; 85610; 80076; 83605; 84484; 84145; 83880; 71045; 93970; 96374; 99284; J1940

== ENCOUNTER 2019-07-05 09:29 | Emergency (ER) | payer OTHER ==
[2019-07-05] MEDS ORDERED: MORPHINE 4 MG/ML SYR ONE (10:18)
[2019-07-05] MEDS ORDERED: FUROSEMIDE 100 MG/10 ML VIAL IV ONE (10:19)
[2019-07-05] MEDS ORDERED: ONDANSETRON 4 MG/2 ML VIAL ONE (10:19)
[2019-07-05] MEDS ORDERED: CLINDAMYCIN 600MG/D5W 600 MG/50 ML BAG IV ONE (10:19)
[2019-07-05 10:43] LABS: Absolute Lymphocytes (CBC) 1.1 K/uL (0.7-4.9); Basophils % 0.6 % (0-1.3); Hematocrit 40.5 % (36.0-45.0); Lymphocytes % 13.3 % (15.3-44.8); MPV 8.3 fL (7.6-11.3); RBC Red Blood Cell Count 4.51 M/uL (3.86-4.86)
[2019-07-05 10:44] LABS: Protime INR 1.43
[2019-07-05 10:56] LABS: ALT/SGPT 19 U/L (12-78); AST/SGOT 25 U/L (15-37); Albumin 3.5 g/dL (3.4-5.0); Alkaline Phosphatase 152 U/L (45-117); BUN Blood Urea Nitrogen 18 mg/dL (7-18); Bicarbonate 32 mmol/L (21-32); Bilirubin Direct 0.1 mg/dL (0-0.2); Bilirubin Total 0.5 mg/dL (0.2-1.0); Glucose Level 172 mg/dL (74-106); Magnesium 1.9 mg/dL (1.8-2.4); NT PRO-BNP 1397 pg/mL (<125); Potassium 3.3 mmol/L (3.5-5.1); Protein, Total 7.6 g/dL (6.4-8.2); Sodium Level 139 mmol/L (136-145); Troponin (Emerg Dept Use Only) < 0.02 ng/mL (0.0-0.045)
--- NOTE | 2019-07-05 10:57 | RAD REPORT ---
EXAM DESCRIPTION: Fran Single View07/05/2019 10:26 am CLINICAL HISTORY: Chest pain COMPARISON: May 2019 FINDINGS: The lungs appear clear of acute infiltrate. The heart is moderately enlarged. Postsurgical changes involve the chest. IMPRESSION: No acute abnormalities displayed
--- NOTE | 2019-07-05 11:04 | ER ---
Nurse's Notes [facility] Name: Kandice Elizabeth Age: 63 yrs Sex: Female : 1955 Arrival Date: 07/05/2019 Time: 09:31 Bed 6 Private MD: Diagnosis: Cellulitis of right lower limb;Cellulitis of left lower limb Presentation: 07/04 09:42 Chief complaint: Patient states: BLE swelling/redness/drainage, fever x 2 days. SOB sv with exertion. Coronavirus screen: Patient denies a cough. Patient reports shortness of breath or difficulty breathing. Patient reports a measured and/or subjective temperature greater than 100.4F. Patient denies travel on a cruise ship or to a country the [facility] currently lists as an affected area. Patient denies contact with known and/or suspected case of COVID-19. SOB with exertion. Ebola Screen: No symptoms or risks identified at this time. Initial Sepsis Screen: Does the patient meet any 2 criteria? RR > 20 per min. No. Patient's initial sepsis screen is negative. Does the patient have a suspected source of infection? Yes: Skin breakdown/wound. Risk Assessment: Do you want to hurt yourself or someone else? Patient reports no desire to harm self or others. Onset of symptoms was July 03, 2019. 09:42 Method Of Arrival: Wheelchair sv 09:42 Acuity: COLBY 3 sv Triage Assessment: 09:45 General: Appears in no apparent distress. uncomfortable, obese, well developed, sv Behavior is calm, cooperative, appropriate for age. Pain: Denies pain. Neuro: Level of Consciousness is awake, alert, obeys commands, Oriented to person, place, time, situation, Moves all extremities. Full function Gait is steady. Respiratory: Reports shortness of breath on exertion Airway is patent Respiratory effort is even, unlabored, Respiratory pattern is symmetrical, tachypnea. Derm: Skin is pink, warm \T\ dry. Redness/swelling/drainage noted to BLE. Musculoskeletal: Range of motion: intact in all extremities. Historical: - Allergies: :45 No Known Allergies; sv - PMHx: :45 Atrial Fib; Brain bleed; CHF; Diabetes - IDDM; Hypertension; COPD; sv - PSHx: :45 bypass surgery; sv - Immunization history:: Adult Immunizations up to date. - Social history:: Smoking status: Patient denies any tobacco usage or history of. - Family history:: not pertinent. Screenin:46 Abuse screen: Denies threats or abuse. Denies injuries from another. Nutritional sv screening: No deficits noted. Tuberculosis screening: No symptoms or risk factors identified. Fall Risk None identified. Assessment: 10:33 Reassessment: Patient appears in no apparent distress at this time. No changes from sv previously documented assessment. Patient and/or family updated on plan of care and expected duration. Pain level reassessed. Patient is alert, oriented x 3, equal unlabored respirations, skin warm/dry/pink. See triage assessment. 11:21 Reassessment: Patient appears in no apparent distress at this time. Patient and/or sv family updated on plan of care and expected duration. Pain level reassessed. Patient is alert, oriented x 3, equal unlabored respirations, skin warm/dry/pink. Vital Signs: 09:42 BP 160 / 98; Pulse 96; Resp 22; Temp 98.8; Pulse Ox 97% ; Weight 96.16 kg; Height 5 ft. sv 0 in. (152.40 cm); Pain 0/10; 10:33 BP 125 / 76; Pulse 93; Resp 18; Pulse Ox 95% ; sv 11:00 Pain 1/10; sv 11:20 BP 118 / 72; Pulse 93; Resp 20; Pulse Ox 95% on R/A; sv 09:42 Body Mass Index 41.40 (96.16 kg, 152.40 cm) sv ED Course: 09:31 Patient arrived in ED. mr 09:32 Melania Diehl RN is Primary Nurse. sv 09:35 Eduin Ray MD is Attending Physician. ma2 09:44 Triage completed. sv 09:45 Arm band placed on Patient placed in an exam room, on a stretcher, on pulse oximetry. sv 09:46 Patient has correct armband on for positive identification. Placed in gown. Bed in low sv position. Call light in reach. Side rails up X2. Pulse ox on. NIBP on. Door closed. Head of bed elevated. 09:48 ED physician to see patient. sv 10:10 Inserted saline lock: 22 gauge in right forearm, using aseptic technique. ,using sv aseptic technique. diffusics Blood collected. Flushed right forearm with 5 ml normal saline. 10:26 XRAY Chest (1 view) In Process Unspecified. EDMS 10:33 Awaiting lab results, Awaiting radiology results. sv 11:21 No provider procedures requiring assistance completed. IV discontinued, intact, sv bleeding controlled, No redness/swelling at site. Pressure dressing applied. Administered Medications: 10:20 Drug: Lasix 80 mg Route: IVP; Site: right forearm; sv 10:49 Follow up: Response: No adverse reaction sv 10:22 Drug: Zofran (Ondansetron) 4 mg Route: IVP; Site: right forearm; sv 10:49 Follow up: Response: No adverse reaction sv 10:24 Drug: morphine 4 mg {Note: rass1.} Route: IVP; Site: right forearm; sv 11:00 Follow up: Pain 04/03 Adult; Response: No adverse reaction; Marked relief of symptoms; sv Pain is decreased; RASS: Alert and Calm (0) 10:32 Drug: Clindamycin 600 mg Route: IVPB; Infused Over: 30 mins; Site: right forearm; sv 11:00 Follow up: Response: No adverse reaction; IV Status: Completed infusion; IV Intake: 50mlsv Intake: 11:00 IV: 50ml; Total: 50ml. sv Output: 11:23 Urine: 280ml (Voided); Total: 280ml. sv Outcome: 11:04 Discharge ordered by . maynor 11:21 Discharged to home via wheelchair. sv 11:21 Condition: stable 11:21 Discharge instructions given to patient, Instructed on discharge instructions, follow up and referral plans. medication usage, Demonstrated understanding of instructions, follow-up care, medications, Prescriptions given X 3. 11:21 Patient left the ED. sv Signatures: Dispatcher [employer] EDMS Melania Diehl RN RN sv Rivera, Mary mr Alzahri, Mohammad, MD MD ma2 Corrections: (The following items were deleted from the chart) 11:23 11:22 Urine 200, (Voided), Output Total 200. sv sv
--- NOTE | 2019-07-05 11:05 | EDPHYS ---
Physician Documentation [facility] Name: Kandice Elizabeth Age: 63 yrs Sex: Female : 1955 Arrival Date: 07/05/2019 Time: 09:31 Bed 6 Private MD: ED Physician Eduin Ray HPI: 07/04 11:02 This 63 yrs old Female presents to ER via Wheelchair with complaints of Leg ma2 Swelling. 11:02 bilateral LE edema and redness, x 4 weeks gradual . Onset: The symptoms/episode ma2 began/occurred gradually, 4 week(s) ago. Severity of symptoms: At their worst the symptoms were very mild mild. The patient has experienced similar episodes in the past. Historical: - Allergies: :45 No Known Allergies; sv - PMHx: :45 Atrial Fib; Brain bleed; CHF; Diabetes - IDDM; Hypertension; COPD; sv - PSHx: 09:45 bypass surgery; sv - Immunization history:: Adult Immunizations up to date. - Social history:: Smoking status: Patient denies any tobacco usage or history of. - Family history:: not pertinent. ROS: 11:02 Constitutional: Negative for fever, chills, and weight loss. ma2 11:02 All other systems are negative. Exam: 11:02 Constitutional: This is a well developed, well nourished patient who is awake, alert, ma2 and in no acute distress. Neck: Trachea midline, no thyromegaly or masses palpated, and no cervical lymphadenopathy. Supple, full range of motion without nuchal rigidity, or vertebral point tenderness. No Meningismus. Chest/axilla: Normal chest wall appearance and motion. Nontender with no deformity. No lesions are appreciated. Cardiovascular: Regular rate and rhythm with a normal S1 and S2. No gallops, murmurs, or rubs. Normal PMI, no JVD. No pulse deficits. Respiratory: Lungs have equal breath sounds bilaterally, clear to auscultation and percussion. No rales, rhonchi or wheezes noted. No increased work of breathing, no retractions or nasal flaring. Abdomen/GI: Soft, non-tender, with normal bowel sounds. No distension or tympany. No guarding or rebound. No evidence of tenderness throughout. MS/ Extremity: LE edema 1+ pitting, equal bilat, she has redness and warmth on both legs anterior mid tibia, 3x3 cm no swelling or fluctuence no crepitations, otherwise Pulses equal, no cyanosis. Neurovascular intact. Full, normal range of motion. Neuro: Awake and alert, GCS 15, oriented to person, place, time, and situation. Cranial nerves II-XII grossly intact. Motor strength 5/5 in all extremities. Sensory grossly intact. Cerebellar exam normal. Normal gait. Vital Signs: 09:42 BP 160 / 98; Pulse 96; Resp 22; Temp 98.8; Pulse Ox 97% ; Weight 96.16 kg; Height 5 ft. sv 0 in. (152.40 cm); Pain 0/10; 10:33 BP 125 / 76; Pulse 93; Resp 18; Pulse Ox 95% ; sv 11:00 Pain 1/10; sv 11:20 BP 118 / 72; Pulse 93; Resp 20; Pulse Ox 95% on R/A; sv 09:42 Body Mass Index 41.40 (96.16 kg, 152.40 cm) sv MDM: 09:35 Patient medically screened. ma2 11:02 Differential Diagnosis mild shf, vs wnl, mild cellulitis no sirs . Data reviewed: vital ma2 signs, nurses notes. Counseling: I had a detailed discussion with the patient and/or guardian regarding: the historical points, exam findings, and any diagnostic results supporting the discharge/admit diagnosis, the presence of at least one elevated blood pressure reading (>120/80) during this emergency department visit, the need for outpatient follow up. Response to treatment: the patient's symptoms have markedly improved after treatment. 07/04 09:55 Order name: Basic Metabolic Panel; Complete Time: 11:07/04 09:55 Order name: CBC with Diff; Complete Time: 11:00 07/04 09:55 Order name: LFT's; Complete Time: 11:00 07/04 09:55 Order name: Magnesium; Complete Time: 11:00 07/04 09:55 Order name: NT PRO-BNP; Complete Time: 11:00 07/04 09:55 Order name: PT-INR; Complete Time: 11:00 07/04 09:55 Order name: Troponin (emerg Dept Use Only); Complete Time: 11:00 2 07/04 09:55 Order name: XRAY Chest (1 view); Complete Time: 11:00 wy2 07/04 09:55 Order name: EKG; Complete Time: 09:56 07/04 09:55 Order name: Cardiac monitoring; Complete Time: 10:08 wy07/04 09:55 Order name: EKG - Nurse/Tech; Complete Time: 10:08 [facility] 07/04 09:55 Order name: IV Saline Lock; Complete Time: 10:07/04 09:55 Order name: Labs collected and sent; Complete Time: 10:07 wy07/04 09:55 Order name: O2 Per Protocol; Complete Time: 10:07/04 09:55 Order name: O2 Sat Monitoring; Complete Time: 10:07 ma Administered Medications: 10:20 Drug: Lasix 80 mg Route: IVP; Site: right forearm; sv 10:49 Follow up: Response: No adverse reaction sv 10:22 Drug: Zofran (Ondansetron) 4 mg Route: IVP; Site: right forearm; sv 10:49 Follow up: Response: No adverse reaction sv 10:24 Drug: morphine 4 mg {Note: rass1.} Route: IVP; Site: right forearm; sv 11:00 Follow up: Pain 1/10 Adult; Response: No adverse reaction; Marked relief of symptoms; sv Pain is decreased; RASS: Alert and Calm (0) 10:32 Drug: Clindamycin 600 mg Route: IVPB; Infused Over: 30 mins; Site: right forearm; sv 11:00 Follow up: Response: No adverse reaction; IV Status: Completed infusion; IV Intake: 50mlsv Disposition: 07/05/19 11:04 Discharged to Home. Impression: Cellulitis of right lower limb, Cellulitis of left lower limb. - Condition is Stable. - Discharge Instructions: Cellulitis, Adult, [id number]. - Prescriptions for Clindamycin HCl 300 mg Oral Capsule - take 1 capsule by ORAL route every 6 hours for 10 days; 40 capsule. Medrol (Vincent) 4 mg Oral Tablets, Dose Pack - take 1 tablet by ORAL route as directed - follow package instructions; 1 packet. Potassium Chloride 20 meq Oral Packet - take 1 packet by ORAL route once daily 1 packet in 6 (six) ounces of water or juice; Take after meal; 30 packet. - Medication Reconciliation Form, Thank You Letter, Antibiotic Education, Prescription Opioid Use form. - Follow up: Private Physician; When: Tomorrow; Reason: Continuance of care. Signatures: Dispatcher [employer] Melania Mcadams RN RN Eduin Faulkner MD MD ma2 Corrections: (The following items were deleted from the chart) 11:21 11:04 07/05/2019 11:04 Discharged to Home. Impression: Cellulitis of right lower limb; sv Cellulitis of left lower limb. Condition is Stable. Prescriptions for Clindamycin HCl 300 mg Oral Capsule - take 1 capsule by ORAL route every 6 hours for 10 days; 40 capsule, Medrol (Vincent) 4 mg Oral Tablets, Dose Pack - take 1 tablet by ORAL route as directed - follow package instructions; 1 packet, Potassium Chloride 20 meq Oral Packet - take 1 packet by ORAL route once daily 1 packet in 6 (six) ounces of water or juice; Take after meal; 30 packet. and Forms are Medication Reconciliation Form, Thank You Letter, Antibiotic Education, Prescription Opioid Use. Follow up: Private Physician; When: Tomorrow; Reason: Continuance of care. ma2
[2019-07-05 11:30] VITALS: TEMP 98.8
[2019-07-05 11:31] VITALS: O2SAT 95
[2019-07-05 11:33] VITALS: BP 118/72
--- NOTE | 2019-07-06 16:18 | EKG ---
Test Date: 2019-07-05 Test Time: 10:08:10 [employer] Operator: CHARITY MEASUREMENT RESULTS: Intervals: Rate: 96 CO: QRSD: 82 QT: 368 QTc: 464 [place]: P: CO: QRS: 116 T: -39 INTERPRETIVE STATEMENTS: Atrial fibrillation Left posterior fascicular block T wave abnormality, consider inferior ischemia or digitalis effect Abnormal ECG Compared to ECG 06/21/2019 17:47:47 Left posterior fascicular block now present Possible ischemia now present Right-axis deviation no longer present T-wave abnormality still present Electronically Signed On 07-06-19 16:16:26 CDT by Khurram Byers
== END 2019-07-05 11:21 | disposition home or self-care (01) ==
LOC: ER 09:29
DX: L03.115 Cellulitis of right lower limb (principal); L03.116 Cellulitis of left lower limb; I48.91 Unspecified atrial fibrillation; I44.5 Left posterior fascicular block; R94.31 Abnormal electrocardiogram [ECG] [EKG]; Z95.1 Presence of aortocoronary bypass graft
CPT/HCPCS: 96365; 93005; 85025; 80048; 36415; 83735; 85610; 80076; 84484; 83880; 71045; 96375; 99284; J2405

== ENCOUNTER 2019-07-15 15:23 | Emergency (ER) | payer OTHER ==
[2019-07-15 16:05] LABS: Absolute Lymphocytes (CBC) 1.2 K/uL (0.7-4.9); Basophils % 1.2 % (0-1.3); Hematocrit 40.1 % (36.0-45.0); Lymphocytes % 12.8 % (15.3-44.8); RBC Red Blood Cell Count 4.55 M/uL (3.86-4.86)
[2019-07-15 16:11] LABS: Protime INR 1.13
[2019-07-15] MEDS ORDERED: HYDROCODONE/APAP 7.5/325 MG TAB ONE (16:11)
[2019-07-15 16:32] LABS: Albumin 3.3 g/dL (3.4-5.0); Bilirubin Direct 0.2 mg/dL (0-0.2); Bilirubin Total 0.6 mg/dL (0.2-1.0); Magnesium 2.2 mg/dL (1.8-2.4); Potassium 4.5 mmol/L (3.5-5.1)
--- NOTE | 2019-07-15 16:46 | RAD REPORT ---
EXAM DESCRIPTION: Fran Single View07/15/2019 4:33 pm CLINICAL HISTORY: Shortness of breath COMPARISON: June 2019 FINDINGS: The lungs appear clear of acute infiltrate. The heart is moderately enlarged. Postsurgical changes involve the chest. IMPRESSION: No acute abnormalities displayed
[2019-07-15] MEDS ORDERED: Levofloxacin500mg IV 500 MG/100 ML BAG IV ONE (17:01)
[2019-07-15] MEDS ORDERED: INSULIN -REGULAR HUMAN 50 UNIT/0.5 ML ML ONE (17:01)
[2019-07-15] MEDS ORDERED: NA CHLORIDE 0.9% 500 ML ONE (17:01)
[2019-07-15] MEDS ORDERED: FENTANYL CITR 100 MCG/2 ML ONE (18:46)
--- NOTE | 2019-07-15 19:22 | EDPHYS ---
Physician Documentation [facility] Name: Kandice Elizabeth Age: 63 yrs Sex: Female : 1955 Arrival Date: 07/15/2019 Time: 15:27 Bed 8 Private MD: ED Physician Nicolas Billy HPI: 07/14 15:42 This 63 yrs old Female presents to ER via Wheelchair with complaints of cp cellulitis legs. 15:42 The patient presents with pain, swelling, tenderness. The complaints affect the right cp lower leg and left lower leg. 15:42 Associated signs and symptoms: Pertinent positives: warmth, Pertinent negatives fever, cp numbness, weakness. The patient has been recently seen at the [facility] Emergency Department, a couple of weeks ago, for similar complaints labs were performed, was given a prescription for antibiotics. Patient reports she is currently taking prescribed clindamycin. Historical: - Allergies: 15:30 No Known Allergies; sv - Home Meds: 19:12 Advair Diskus 250-50 mcg/dose Inhl dsdv 1 puff 2 times per day [Active]; Eliquis 5 mg lp1 Oral tab 1 tab 2 times per day [Active]; furosemide 40 mg Oral tab 1 tab 2 times per day [Active]; metoprolol tartrate 50 mg Oral tab 1 tab 2 times per day [Active]; montelukast 10 mg Oral tab 1 tab once daily [Active]; Novolin N 100 unit/mL Sub-Q susp [Active]; Novolin R 40 units, SUBQ twice daily Sub-Q [Active]; pramipexole 0.25 mg Oral tab 1 tab twice daily [Active]; - PMHx: 15:30 Atrial Fib; Brain bleed; CHF; COPD; Diabetes - IDDM; Hypertension; sv - PSHx: 15:30 bypass surgery; sv - Immunization history:: Flu vaccine is not up to date. - Social history:: Smoking status: Patient reports the use of cigarette tobacco products, unknown amount. ROS: 15:45 Constitutional: Negative for body aches, chills, fever, poor PO intake. cp 15:45 Eyes: Negative for injury, pain, redness, and discharge. cp 15:45 ENT: Negative for drainage from ear(s), ear pain, sore throat, difficulty swallowing, difficulty handling secretions. 15:45 Cardiovascular: Positive for edema, Negative for chest pain. 15:45 Respiratory: Negative for cough, shortness of breath, wheezing. 15:45 Abdomen/GI: Negative for abdominal pain. 15:45 Skin: Positive for erythema, of the left lower leg and right lower leg, excoriation. 15:45 All other systems are negative. Exam: 15:50 Constitutional: The patient appears in no acute distress, alert, awake, cp non-diaphoretic, non-toxic, well developed, well nourished, obese. 15:50 Head/Face: Normocephalic, atraumatic. cp 15:50 Eyes: Periorbital structures: appear normal, Conjunctiva: normal, no exudate, no cp injection, Sclera: no appreciated abnormality, Lids and lashes: appear normal, bilaterally. 15:50 ENT: External ear(s): are unremarkable, Nose: is normal, Mouth: Lips: moist, Oral mucosa: moist, Posterior pharynx: Airway: no evidence of obstruction, patent. 15:50 Chest/axilla: Inspection: normal, Palpation: is normal, no crepitus, no tenderness. 15:50 Cardiovascular: Rate: normal, Rhythm: irregular, Edema: very mild left lower leg and right lower leg, JVD: is not appreciated. 15:50 Respiratory: the patient does not display signs of respiratory distress, Respirations: cp normal, no use of accessory muscles, no retractions, labored breathing, is not present, Breath sounds: rales, are not appreciated, decreased breath sounds, are not appreciated, rhonchi, are not appreciated, wheezing: is not appreciated. 15:50 Abdomen/GI: Inspection: obese Palpation: abdomen is soft and non-tender, in all quadrants. 15:50 Back: pain, is absent, ROM is normal. 15:50 Skin: cellulitis, that is mild, well demarcated, on the left lower leg and right lower leg. 15:50 Neuro: Orientation: to person, place \T\ time. Mentation: is normal. 16:20 ECG was reviewed by the Attending Physician. cp Vital Signs: 15:30 BP 138 / 88; Pulse 92; Resp 22; Temp 99.2; Pulse Ox 98% ; Weight 96.16 kg; Height 5 ft. sv 0 in. (152.40 cm); 16:36 BP 127 / 84; Pulse 111; Resp 24; Pulse Ox 94% ; bp 17:55 BP 137 / 102; Pulse 107; Resp 28; Pulse Ox 94% ; bp 19:09 BP 124 / 88; Pulse 100; Resp 20; Pulse Ox 94% on R/A; lp1 15:30 Body Mass Index 41.40 (96.16 kg, 152.40 cm) sv MDM: 15:38 Patient medically screened. cp 16:00 Differential diagnosis: DVT, abscess, sepsis, CHF exacerbation, cellulitis. cp 16:20 ED course: consult with wound care who will see patient in ED for evaluation. cp 19:20 Data reviewed: vital signs, nurses notes, lab test result(s), EKG, radiologic studies, cp plain films. 19:20 Test interpretation: by ED physician or midlevel provider: ECG. Counseling: I had a cp detailed discussion with the patient and/or guardian regarding: the historical points, exam findings, and any diagnostic results supporting the discharge/admit diagnosis, lab results, radiology results, the need for outpatient follow up, a family practitioner, wound care, to return to the emergency department if symptoms worsen or persist or if there are any questions or concerns that arise at home. Response to treatment: the patient's symptoms have markedly improved after treatment, and as a result, I will discharge patient. 19:20 ED course: VSS. Pain improved with meds. Patient instructed to continue clindamycin and cp will add Levaquin. Patient instructed on need for family physician and to f/u with wound care. Will discharge to home for continue monitoring. 07/14 15:41 Order name: Basic Metabolic Panel; Complete Time: 16:40 cp 07/14 16:40 Interpretation: Normal except: NA 134; GLUC 371; BUN 20; GFR 50. cp 07/14 15:41 Order name: CBC with Diff; Complete Time: 16:40 cp 07/14 16:46 Interpretation: Normal except: MCHC 31.7; RDW 16.7; LYM% 12.8; EOSINOPHIL % 6.8; EOSA cp 0.6. 07/14 15:41 Order name: LFT's; Complete Time: 16:40 cp 07/14 16:40 Interpretation: Normal except: ALK 157; ALB 3.3; GLOB 3.7; A/G 0.9. cp 07/14 15:41 Order name: Magnesium; Complete Time: 16:40 cp 07/14 15:41 Order name: NT PRO-BNP; Complete Time: 16:40 cp 07/14 16:47 Interpretation: Abnormal: NT PRO-BNP 1353. cp 07/14 15:41 Order name: PT-INR; Complete Time: 16:29 cp 07/14 16:29 Interpretation: Normal except: PT 13.3. cp 07/14 15:59 Order name: Troponin I; Complete Time: 16:40 cp 07/14 15:59 Order name: XRAY Chest (1 view); Complete Time: 16:51 cp 07/14 16:52 Interpretation: Report review. 07/14 16:02 Order name: Lactate; Complete Time: 16:40 bd 07/14 16:41 Interpretation: Abnormal: LAC 2.3. 07/14 16:46 Order name: Blood Culture Adult (2) 07/14 18:11 Order name: Lactate: 2 hr repeat; Complete Time: 19:57 cp 07/14 19:57 Interpretation: Reviewed. 07/14 15:41 Order name: EKG; Complete Time: 15:42 cp 07/14 15:41 Order name: Cardiac monitoring; Complete Time: 16:08 cp 07/14 15:41 Order name: EKG - Nurse/Tech; Complete Time: 16:08 07/14 15:41 Order name: IV Saline Lock; Complete Time: 16:00 cp 07/14 15:41 Order name: Labs collected and sent; Complete Time: 16:00 07/14 15:41 Order name: O2 Per Protocol; Complete Time: 15:49 cp 07/14 15:41 Order name: O2 Sat Monitoring; Complete Time: 15:49 cp EC:20 Rate is 92 beats/min. Rhythm is irregularly irregular. QRS interval is normal. QT cp interval is normal. T waves are Inverted in leads III, aVF. Interpreted by me. Reviewed by me. Administered Medications: 16:08 Drug: Hydrocodone-Acetaminophen (7.5 mg-325 mg) 1 tabs Route: PO; bp 16:46 Follow up: Response: Pain is decreased bp 16:55 Drug: NS 0.9% 500 ml Route: IV; Rate: 500 ml/hr; Site: right wrist; bp 16:55 Drug: NovoLIN R 10 units {Co-Signature: ls4 (Brenda Martinez RN).} Route: Sub-Q; Site: bp right upper arm; 18:46 Follow up: Response: No adverse reaction bp 17:03 Drug: LevaQUIN 500 mg Volume: 100 ml; Route: IVPB; Infused Over: 60 mins; Site: right bp wrist; 18:46 Drug: fentaNYL (PF) 25 mcg Route: IVP; Site: right wrist; bp Disposition: 07/15 07:37 Co-signature as Attending Physician, Nicolas Billy MD I agree with the assessment and kdr plan of care. Disposition: 07/15/19 19:21 Discharged to Home. Impression: Cellulitis of left lower limb, Cellulitis of right lower limb, Diabetes mellitus due to underlying condition with hyperglycemia, Chronic atrial fibrillation. - Condition is Stable. - Discharge Instructions: Atrial Fibrillation, Cellulitis, Adult, Blood Glucose Monitoring, Adult, Diabetes Mellitus and Food. - Prescriptions for Levaquin 500 mg Oral Tablet - take 1 tablet by ORAL route once daily for 8-10 days start taking evening of 07-16-2019; 9 tablet. Vistaril 50 mg Oral capsule - take 1 capsule by ORAL route 3-4 times daily As needed for lower leg itching; 30 capsule. Tramadol 50 mg Oral Tablet - take 1 tablet by ORAL route every 8 hours as needed; 12 tablet. - Medication Reconciliation Form, Thank You Letter, Antibiotic Education, Prescription Opioid Use form. - Follow up: Private Physician; When: 2 - 3 days; Reason: Recheck today's complaints. - Problem is an ongoing problem. - Symptoms have improved. Signatures: Dispatcher [employer] Melania Mcadams, RN MARIBELL Nicolas Billy MD MD [facility] Kaycee Moreno RN RN lp1 Freddy Suazo PA PA cp Andrew Miller, MARIBELL RN bp Brenda Martinez RN ls4 Corrections: (The following items were deleted from the chart) 07/14 16:46 16:40 Normal except: MCHC 31.7; RDW 16.7; LYM% 12.8; EOSINOPHIL % 6.8. cp cp 19:24 19:21 07/15/2019 19:21 Discharged to Home. Impression: Cellulitis of left lower limb; cp Cellulitis of right lower limb. Condition is Stable. Forms are Medication Reconciliation Form, Thank You Letter, Antibiotic Education, Prescription Opioid Use. Follow up: Private Physician; When: 2 - 3 days; Reason: Recheck today's complaints. Problem is an ongoing problem. Symptoms have improved. cp 20:38 19:24 07/15/2019 19:21 Discharged to Home. Impression: Cellulitis of left lower limb; lp1 Cellulitis of right lower limb; Diabetes mellitus due to underlying condition with hyperglycemia; Chronic atrial fibrillation. Condition is Stable. Discharge Instructions: Cellulitis, Adult. Prescriptions for Levaquin 500 mg Oral Tablet - take 1 tablet by ORAL route once daily for 8-10 days start taking evening of 07-16-2019; 9 tablet, Vistaril 50 mg Oral capsule - take 1 capsule by ORAL route 3-4 times daily As needed for lower leg itching; 30 capsule, Tramadol 50 mg Oral Tablet - take 1 tablet by ORAL route every 8 hours as needed; 12 tablet. and Forms are Medication Reconciliation Form, Thank You Letter, Antibiotic Education, Prescription Opioid Use. Follow up: Private Physician; When: 2 - 3 days; Reason: Recheck today's complaints. Problem is an ongoing problem. Symptoms have improved. cp
--- NOTE | 2019-07-15 19:22 | ER ---
Nurse's Notes [facility] Name: Kandice Elizabeth Age: 63 yrs Sex: Female : 1955 Arrival Date: 07/15/2019 Time: 15:27 Bed 8 Private MD: Diagnosis: Cellulitis of left lower limb;Cellulitis of right lower limb;Diabetes mellitus due to underlying condition with hyperglycemia;Chronic atrial fibrillation Presentation: 07/14 15:28 Chief complaint: Patient states: BLE swelling has gotten worse and has been on abx at home. Coronavirus screen: Proceed with normal triage. Patient reports a cough. Patient reports shortness of breath or difficulty breathing. Patient denies measured and/or subjective temperature greater than 100.4F prior to today's visit. Patient denies travel on a cruise ship or to a country the [facility] currently lists as an affected area. Patient denies contact with known and/or suspected case of COVID-19. Ebola Screen: No symptoms or risks identified at this time. Risk Assessment: Do you want to hurt yourself or someone else? Patient reports no desire to harm self or others. Onset of symptoms was June 2019. 15:28 Method Of Arrival: Wheelchair sv 15:28 Acuity: COLBY 3 sv 15:30 Initial Sepsis Screen: Does the patient meet any 2 criteria? RR > 20 per min. HR > 90 sv bpm. Yes Does the patient have a suspected source of infection? Yes: Skin breakdown/wound. Triage Assessment: 15:28 General: Appears in no apparent distress. uncomfortable, Behavior is calm, cooperative, sv appropriate for age. Pain: Complains of pain in right leg and left leg. Neuro: Level of Consciousness is awake, alert, obeys commands, Oriented to person, place, time, situation. Respiratory: Respiratory effort is even, unlabored. Derm: Derm: open wounds noted to BLE, redness and swelling. Musculoskeletal: Swelling present in right leg and left leg. Historical: - Allergies: 15:30 No Known Allergies; sv - Home Meds: 19:12 Advair Diskus 250-50 mcg/dose Inhl dsdv 1 puff 2 times per day [Active]; Eliquis 5 mg lp1 Oral tab 1 tab 2 times per day [Active]; furosemide 40 mg Oral tab 1 tab 2 times per day [Active]; metoprolol tartrate 50 mg Oral tab 1 tab 2 times per day [Active]; montelukast 10 mg Oral tab 1 tab once daily [Active]; Novolin N 100 unit/mL Sub-Q susp [Active]; Novolin R 40 units, SUBQ twice daily Sub-Q [Active]; pramipexole 0.25 mg Oral tab 1 tab twice daily [Active]; - PMHx: 15:30 Atrial Fib; Brain bleed; CHF; COPD; Diabetes - IDDM; Hypertension; sv - PSHx: 15:30 bypass surgery; sv - Immunization history:: Flu vaccine is not up to date. - Social history:: Smoking status: Patient reports the use of cigarette tobacco products, unknown amount. Screenin:01 Abuse screen: Denies threats or abuse. Denies injuries from another. Nutritional bp screening: No deficits noted. Tuberculosis screening: No symptoms or risk factors identified. Fall Risk None identified. Assessment: 15:30 General: SEE TRIAGE NOTE. CODE SEPSIS CANCELLED BY PROVIDER. bp 16:36 Reassessment: ALL CURRENT ORDERS COMPLETED. VS STABLE ON MONITOR. bp 17:03 Reassessment: WOUND CARE AT B/S. bp 17:55 Reassessment: PT C/O BLE MUSCLE CRAMPS. PROVIDER NOTIFIED. ALL CURRENT ORDERS COMPLETED.bp 18:48 Reassessment: REPEAT LACTATE IN PROCESS. ALL OTHER CURRENT ORDERS COMPLETED. bp 19:09 Reassessment: Patient appears in no apparent distress at this time. Neuro: Level of lp1 Consciousness is awake, alert, obeys commands. Cardiovascular: Patient's skin is warm and dry. Respiratory: Respiratory effort is even. Derm: Skin is intact, Skin is dry, weeping noted to bilateral lower legs; clear drainage noted. Musculoskeletal: No deficits noted. Vital Signs: 15:30 BP 138 / 88; Pulse 92; Resp 22; Temp 99.2; Pulse Ox 98% ; Weight 96.16 kg; Height 5 ft. sv 0 in. (152.40 cm); 16:36 BP 127 / 84; Pulse 111; Resp 24; Pulse Ox 94% ; bp 17:55 BP 137 / 102; Pulse 107; Resp 28; Pulse Ox 94% ; bp 19:09 BP 124 / 88; Pulse 100; Resp 20; Pulse Ox 94% on R/A; lp1 15:30 Body Mass Index 41.40 (96.16 kg, 152.40 cm) sv ED Course: 15:27 Patient arrived in ED. as 15:27 Arm band placed on. sv 15:28 Freddy Suazo PA is PHCP. cp 15:28 Nicolas Billy MD is Attending Physician. cp 15:29 Triage completed. sv 15:39 Andrew Miller, RN is Primary Nurse. bp 16:00 Inserted saline lock: 20 gauge in right wrist, using aseptic technique. Blood collected.bp 16:01 Patient has correct armband on for positive identification. Bed in low position. Call bp light in reach. Side rails up X2. 16:12 EKG done, by ED staff, reviewed by Freddy DAVIS. dh3 16:34 XRAY Chest (1 view) In Process Unspecified. EDMS 19:12 No provider procedures requiring assistance completed. lp1 20:00 Wound care: to cellulitis located on bilateral lower legs was dressed with 4X4s, Kerlix.lp1 20:15 IV discontinued, bleeding controlled, No redness/swelling at site. Pressure dressing lp1 applied. Administered Medications: 16:08 Drug: Hydrocodone-Acetaminophen (7.5 mg-325 mg) 1 tabs Route: PO; bp 16:46 Follow up: Response: Pain is decreased bp 16:55 Drug: NS 0.9% 500 ml Route: IV; Rate: 500 ml/hr; Site: right wrist; bp 16:55 Drug: NovoLIN R 10 units {Co-Signature: ls4 (Brenda Martinez RN).} Route: Sub-Q; Site: bp right upper arm; 18:46 Follow up: Response: No adverse reaction bp 17:03 Drug: LevaQUIN 500 mg Volume: 100 ml; Route: IVPB; Infused Over: 60 mins; Site: right bp wrist; 18:46 Drug: fentaNYL (PF) 25 mcg Route: IVP; Site: right wrist; bp Outcome: 19:21 Discharge ordered by . cp 20:15 Discharged to home via wheelchair, with family. lp1 20:15 Condition: good 20:15 Discharge instructions given to patient, Instructed on discharge instructions, follow up and referral plans. medication usage, Demonstrated understanding of instructions, follow-up care, medications, Prescriptions given X 3. 20:38 Patient left the ED. lp1 Signatures: Dispatcher [employer] Melania Mcadams RN RN Marva Olmedo Laura, RN RN lp1 Freddy Suazo PA PA cp Herrera, Deanna 3 Andrew Miller RN RN bp Brenda Martinez RN ls4
[2019-07-15 20:45] VITALS: TEMP 99.2
[2019-07-15 20:46] VITALS: O2SAT 94
[2019-07-15 20:48] VITALS: BP 124/88
--- NOTE | 2019-07-16 07:59 | EKG ---
Test Date: 2019-07-15 Test Time: 16:12:27 Strap Buckler Machine: NORAH MEASUREMENT RESULTS: Intervals: Rate: 92 AR: QRSD: 74 QT: 372 QTc: 460 [place]: P: AR: QRS: 112 T: -14 INTERPRETIVE STATEMENTS: Atrial fibrillation Right axis deviation Nonspecific T wave abnormality, probably digitalis effect Abnormal ECG Compared to ECG 07/05/2019 10:08:10 Right-axis deviation now present Left posterior fascicular block no longer present Possible ischemia no longer present T-wave abnormality still present Electronically Signed On 07-16-19 07:58:35 CDT by Khurram Byers
== END 2019-07-15 20:38 | disposition home or self-care (01) ==
LOC: ER 15:23
DX: L03.116 Cellulitis of left lower limb (principal); L03.115 Cellulitis of right lower limb; E08.65 Diabetes mellitus due to underlying condition with hyperglycemia; I48.20 Chronic atrial fibrillation, unspecified; I10 Essential (primary) hypertension; J44.9 Chronic obstructive pulmonary disease, unspecified; Z72.0 Tobacco use; Z79.02 Long term (current) use of antithrombotics/antiplatelets; Z79.4 Long term (current) use of insulin
CPT/HCPCS: 93005; 87040 ×2; 85025; 80048; 36415; 83735; 85610; 80076; 83605 ×2; 84484; 83880; 71045; 99251; 96375; 96372; 96374; 99284; J3010; J7040

== ENCOUNTER 2019-11-23 12:55 | Emergency (ER) | payer OTHER ==
--- OUTSIDE RECORDS SUMMARY | 2019-11-23 13:10 | XMS REPORT | Continuity of Care Document ---
:1955 Author Organization [facility] t Address [address] [place] [address] Care Team Providers Name Role Phone Unavailable Unavailable Unavailable Payers Payer Name Policy Type Policy Number Effective Date Expiration Date S ource Problems This patient has no known problems. Allergies, Adverse Reactions, Alerts Allergy Allergy Status Severity Reaction(s) Onset Inactive Treating Comm ents Source Name Type Date Date Clinician IVP DYE DA Active MO 2020-0 [facility] 8[facility] [place] 00:[facility]: d 00 [facility] IVP DYE DA Active MO 2020-0 [facility] 8[facility]14 [place] 00:00: d 00 [facility] No Known DA Active U 2020-0 [facility] Allergie 5-25 Clear s 00:00: House 00 [facility] No Known DA Active U 2002-0 [facility] Drug 3-21 [place] Intolera 00:00: d nc 00 [facility] IVP DYE DA Active U 2002-0 [facility] 3-21 [place] 00:00: d 00 [facility] No Known DA Active U 2002-0 [facility] 3[facility]21 [place] [facility]: [facility] No Known DA Active U 2002-0 [facility] 3-21 [place] [facility]: [facility] No Known DA Active U 2002-0 [facility] Other 3- [place] All[facility]ie [facility]: d [facility] Medications This patient has no known medications. Procedures This patient has no known procedures. Results Test Description Test Time Test Comments Results Result Comments Source GLUCOSE BEDSIDE TESTING 2019-11-11 09:56:00 Test Item Value Reference Range Interpretation Comme nts GLUCOSE BEDSIDE TESTING (test code = GLUBED) 225 mg/dL 70-110 H GLUCOSE BEDSIDE [id number] 23:00:00 Test Item Value Reference Range Interpretation Comments GLUCOSE BEDSIDE TESTING (test code 301 mg/dL 70-110 H = GLUBED) GLUCOSE BEDSIDE [id number] 16:43:00 Test Item Value Reference Range Interpretation Comments GLUCOSE BEDSIDE TESTING (test code 243 mg/dL 70-110 H = GLUBED) GLUCOSE BEDSIDE [id number] 12:30:00 Test Item Value Reference Range Interpretation Comments GLUCOSE BEDSIDE TESTING (test code 195 mg/dL 70-110 H = GLUBED) BASIC METABOLIC [id number] 10:40:00 Test Item Value Reference Range Interpretation Comments SODIUM (test code = 135 mmol/L 134-147 N NA) POTASSIUM (test code 4.5 mmol/L 3.4-5.0 N SLIGHT HEMOYSIS = K) PRESENT CHLORIDE (test code = 101 mmol/L 100-108 N CL) CARBON DIOXIDE (test 24 mmol/L 21-32 N code = CO2) ANION GAP (test code 10.0 GAP calc 4.0-15.0 N = GAP) GLUCOSE (test code = 148 MG/DL 70-110 H GLU) BLOOD UREA NITROGEN 57 MG/DL 7-18 H (test code = BUN) GLOMERULAR FILTRATION 24 estGFR >60 L RATE (test code = GFR) CREATININE (test code 2.2 MG/DL 0.6-1.0 H = CREAT) CALCIUM (test code = 8.2 MG/DL 8.5-10.1 L CA) GLUCOSE BEDSIDE [id number] 08:59:00 Test Item Value Reference Range Interpretation Comments GLUCOSE BEDSIDE TESTING (test code 119 mg/dL 70-110 H = GLUBED) GLUCOSE BEDSIDE [id number] 21:36:00 Test Item Value Reference Range Interpretation Comments GLUCOSE BEDSIDE TESTING (test code 146 mg/dL 70-110 H = GLUBED) GLUCOSE BEDSIDE [id number] 16:11:00 Test Item Value Reference Range Interpretation Comments GLUCOSE BEDSIDE TESTING (test code 191 mg/dL 70-110 H = GLUBED) - XR CHEST 1 [id number] 15:39:00 Name: AILYN COBIAN [place] : 1955 Age/S: 64 / F [address] [address] Unit #: [id number] Loc: [place] [address] Phys: Raleigh Roy MD Acct: [id number] Dis Date: Status: ADM IN PHONE #: [phone] Exam Date: 11/09/2019 1515 FAX #: Reason: FALL EXAMS: CPT: [id number] XR CHEST 1 V 03288 Fluoro Time: DAP (Gy m2): Air Kerma (mGy): COMPARISON STUDY: None available FINDINGS: Single frontal of the chest. Mild bilateral hilar prominence without evidence of focal consolidation. 1.8 cm pulmonary nodularity overlying the inferomedial right upper lobe. There is no pneumothorax or pleural fluid. The heart size and pulmonary vasculature are within normal limits. Postoperative changes of median sternotomy. No acute osseous findings. IMPRESSION: 1. 1.8 cm pulmonary nodularity overlying the inferomedial right upper lobe. Further characterization with CT of the chest is recommended. 2. Mild bilateral hilar prominence without evidence of focal consolidation. ElectronicallySigned by Francesca Ojeda on 11/09/2019 at 1539 Reported and signed by: Mike Ojeda M.D. CC: Raleigh Calderon MD PAGE 1 Signed Report Name: AILYN COBIAN [place] : 1955 Age/S: 64 / F [address] [address] Unit #: [id number] Loc: [place] [address] Phys: Raleigh Roy MD Acct: [id number] Dis Date: Status: ADM IN PHONE #: [phone] Exam Date: 11/09/2019 1515 FAX #: Reason: FALL EXAMS: CPT: [id number] XR CHEST 1 V 54018 Fluoro Time: DAP (Gy m2): Air Kerma (mGy): <Continued> Technologist: Mary Ann Cortes,RT(R)(CT); Jodi Baker, RT(R) Trnintegris bass [facility] Date/Time: 11/09/2019 (1539) t.[email or web address].[email or web address] Orig Print D/T: S: 11/09/2019 (1507) PAGE 2 Signed Report- XR HIP W/PEL UNI 2+V [id number] 15:34:00 [facility] 1955 Age/S: 64 / F [address] [address] Unit #: [id number] Loc: [place] [address] Phys: Raleigh Roy MD Acct: [id number] Dis Date: Status: ADM IN PHONE #: [phone] Exam Date: 11/09/2019 1526 FAX #: Reason: HIP PAIN EXAMS: CPT: [id number] XR HIP W/PEL UNI 2+[place] [address] Fluoro Time: DAP (Gy m2): Air Kerma (mGy): EXAM: - XR HIP W/PEL UNI 2+V LT INDICATION: HIP PAIN Location: T 18. COMPARISON: None. TECHNIQUE: 2 views. FINDINGS: No acute fracture or dislocation seen. Soft tissues appear grossly unremarkable. Mild degenerative changes seen. Remote right inferior pubic ramus healed fracture. IMPRESSION: No acute fracture seen. Mild degenerative changes. If concern for infection, consider correlation with MRI. at 1534 Reported and signed by:Burton Cid M.D. CC: Raleigh Roy MD PAGE 1 Signed Report Name: AILYN COBIAN [facility] : 1955 Age/S: 64 / F [address] [address] Unit #: [id number] Loc: [place] [address] Phys: Raleigh Roy Acct: [id number] Dis Date: Status: ADM IN PHONE #: [phone] Exam Date: 11/09/2019 1526 FAX #: Reason: HIP PAIN EXAMS: CPT: [id number] XR HIP W/PEL UNI 2+[place] [address] Fluoro Time: DAP (Gy m2): Air Kerma (mGy): <Continued> Technologist: Mary Ann Cortes, RT(R)(CT); Jodi Baker, RT(R) Trnncb Date/Time: 11/09/2019 (1534) [email or web address] Orig Print D/T: S: 11/09/2019 (7547) PAGE 2 Signed Report- XR FACIAL BONES <[id number] 15:30:00 Name: AILYN COBIAN [facility] : 1955 Age/S: 64 / F [address] [address] Unit #: [id number] Loc: [place] [address] Phys: Raleigh Roy MD Acct: [id number] Dis Date: Status: ADM IN PHONE #: [phone] Exam Date: 11/09/2019 1520 FAX #: Reason: FALL EXAMS: CPT: [id number] XR FACIAL BONES <3V 83962 Fluoro Time: DAP (Gy m2): Air Kerma (mGy): EXAM: X-ray facial bones 3 views INDICATION: Fall. Cellulitis. Location: T 18. COMPARISON: None. TECHNIQUE: 3 views. FINDINGS: No acute fracture seen. Radiographically, the paranasal sinuses appear to be clear. Soft tissues appear grossly unremarkable. IMPRESSION: No acute fracture seen. Paranasal sinuses appear grossly clear. Soft tissues appear grossly unremarkable, although assessment for soft tissue infection is limited on the current modality. If further imaging assessment is warranted, correlation with contrast-enhanced CT examination could be considered. at 1530 Reported and signed by: Burton Cid M.D. CC: Raleigh Roy MD PAGE 1 Signed Report Name: AILYN COBIAN [place] : 1955 Age/S: 64 / F [address] [address] Unit #: [id number] Loc: [place] [address] Phys: Raleigh Roy MD Acct: [id number] Dis Date: Status: ADM IN PHONE #: [phone] Exam Date: 11/09/2019 1520 FAX #: Reason: FALL EXAMS: CPT: [id number] XR FACIAL BONES <3V 63673 Fluoro Time: DAP (Gy m2): Air Kerma (mGy): <Continued> Technologist: Mary Ann Cortes, RT(R)(CT); Jodi Baker, RT(R) Trnscb Date/Time: 11/09/2019 (1530) GregAH26 PAGE 2 Signed ReportGLUCOSE BEDSIDE [id number] 12:06:00 Test Item Value Reference Range Interpretation Comments GLUCOSE BEDSIDE TESTING (test code 252 mg/dL 70-110 H = GLUBED) BASIC METABOLIC [id number] 07:58:00 Test Item Value Reference Range Interpretation Comments SODIUM (test code = NA) 134 mmol/L 134-147 N POTASSIUM (test code = K) 4.5 mmol/L 3.4-5.0 N CHLORIDE (test code = CL) 99 mmol/L 100-108 L CARBON DIOXIDE (test code = CO2) 27 mmol/L 21-32 N ANION GAP (test code = GAP) 8.0 GAP calc 4.0-15.0 N GLUCOSE (test code = GLU) 243 MG/DL 70-110 H BLOOD UREA NITROGEN (test code = 54 MG/DL 7-18 H BUN) GLOMERULAR FILTRATION RATE (test 22 estGFR >60 L code = GFR) CREATININE (test code = CREAT) 2.4 MG/DL 0.6-1.0 H CALCIUM (test code = CA) 7.8 MG/DL 8.5-10.1 L CBC W/AUTO [id number] 07:37:00 Test Item Value Reference Range Interpretation Comments WHITE BLOOD CELL (test code = 9.2 K/mm3 3.5-11.0 N WBC) RED BLOOD CELL (test code = 4.17 M/mm3 4.70-6.10 L RBC) HEMOGLOBIN (test code = HGB) 11.6 G/DL 10.4-14.9 N HEMATOCRIT (test code = HCT) 37.8 % 31.5-44.1 N MEAN CELL VOLUME (test code = 90.6 Fl 84.5-98.6 N MCV) MEAN CELL HGB (test code = MCH) 27.8 pg 27.0-34.2 N MEAN CELL HGB CONCETRATION 30.7 G/DL 31.5-34.0 L (test code = MCHC) RED CELL DISTRIBUTION WIDTH 16.7 SD 11.5-14.5 H (test code = RDW) PLATELET COUNT (test code = 208 K/mm3 150-450 N PLT) MEAN PLATELET VOLUME (test code 10.10 fL 7.0-10.5 N = MPV) NEUTROPHIL % (test code = NT%) 73.4 % 40-76 IMMATURE GRANULOCYTE % (test 0.4 % 0.0-5.0 N code = IG%) LYMPHOCYTE % (test code = LY%) 12.1 % 20.5-51.1 L MONOCYTE % (test code = MO%) 9.5 % 1.7-9.3 H EOSINOPHIL % (test code = EO%) 3.5 % 0.0-6.0 N BASOPHIL % (test code = BA%) 1.1 % 0.0-2.0 N NUCLEATED RBC % (test code = 0.0 /100WBC% 0.0-1.0 N NRBC%) NEUTROPHIL # (test code = NT#) 6.8 K/mm3 1.8-7.6 N IMMATURE GRANULOCYTE # (test 0.04 x10 3/uL 0.00-0.03 H code = IG#) LYMPHOCYTE # (test code = LY#) 1.1 K/mm3 0.6-3.2 N MONOCYTE # (test code = MO#) 0.9 K/mm3 0.3-1.1 N EOSINOPHIL # (test code = EO#) 0.3 K/mm3 0.0-0.4 N BASOPHIL # (test code = BA#) 0.1 K/mm3 0.0-0.1 N NUCLEATED RBC # (test code = 0.0 K/mm3 0.0-0.1 N NRBC#) MANUAL DIFF REQUIRED (test code NO DIFF/SCN CRITERIA = MDIFF) GLUCOSE BEDSIDE [id number] 01:26:00 Test Item Value Reference Range Interpretation Comments GLUCOSE BEDSIDE TESTING (test code 281 mg/dL 70-110 H = GLUBED) GLUCOSE BEDSIDE [id number] 19:27:00 Test Item Value Reference Range Interpretation Comments GLUCOSE BEDSIDE TESTING (test code 233 mg/dL 70-110 H = GLUBED) GLUCOSE BEDSIDE [id number] 17:43:00 Test Item Value Reference Range Interpretation Comments GLUCOSE BEDSIDE TESTING (test code 245 mg/dL 70-110 H = GLUBED) VANCOMYCIN [id number] 10:58:00 Test Item Value Reference Range Interpretation Comments VANCOMYCIN TROUGH (test code = 17.9 mcG/ML 10-20 N VANCT) GLUCOSE BEDSIDE [id number] 08:14:00 Test Item Value Reference Range Interpretation Comments GLUCOSE BEDSIDE TESTING (test code 147 mg/dL 70-110 H = GLUBED) BASIC METABOLIC [id number] 04:07:00 Test Item Value Reference Range Interpretation Comments SODIUM (test code = NA) 136 mmol/L 134-147 N POTASSIUM (test code = K) 4.9 mmol/L 3.4-5.0 N CHLORIDE (test code = CL) 99 mmol/L 100-108 L CARBON DIOXIDE (test code = CO2) 31 mmol/L 21-32 N ANION GAP (test code = GAP) 6.0 GAP calc 4.0-15.0 N GLUCOSE (test code = GLU) 173 MG/DL 70-110 H BLOOD UREA NITROGEN (test code = 43 MG/DL 7-18 H BUN) GLOMERULAR FILTRATION RATE (test 24 estGFR >60 L code = GFR) CREATININE (test code = CREAT) 2.2 MG/DL 0.6-1.0 H CALCIUM (test code = CA) 8.2 MG/DL 8.5-10.1 L CBC W/AUTO [id number] 03:46:00 Test Item Value Reference Range Interpretation Comments WHITE BLOOD CELL (test code = 8.1 K/mm3 3.5-11.0 N WBC) RED BLOOD CELL (test code = 4.21 M/mm3 4.70-6.10 L RBC) HEMOGLOBIN (test code = HGB) 11.7 G/DL 10.4-14.9 N HEMATOCRIT (test code = HCT) 38.4 % 31.5-44.1 N MEAN CELL VOLUME (test code = 91.2 Fl 84.5-98.6 N MCV) MEAN CELL HGB (test code = MCH) 27.8 pg 27.0-34.2 N MEAN CELL HGB CONCETRATION 30.5 G/DL 31.5-34.0 L (test code = MCHC) RED CELL DISTRIBUTION WIDTH 17.0 SD 11.5-14.5 H (test code = RDW) PLATELET COUNT (test code = 222 K/mm3 150-450 N PLT) MEAN PLATELET VOLUME (test code 10.20 fL 7.0-10.5 N = MPV) NEUTROPHIL % (test code = NT%) 59.0 % 40-76 N IMMATURE GRANULOCYTE % (test 0.5 % 0.0-5.0 N code = IG%) LYMPHOCYTE % (test code = LY%) 19.2 % 20.5-51.1 L MONOCYTE % (test code = MO%) 11.9 % 1.7-9.3 H EOSINOPHIL % (test code = EO%) 8.0 % 0.0-6.0 H BASOPHIL % (test code = BA%) 1.4 % 0.0-2.0 N NUCLEATED RBC % (test code = 0.2 /100WBC% 0.0-1.0 N NRBC%) NEUTROPHIL # (test code = NT#) 4.8 K/mm3 1.8-7.6 N IMMATURE GRANULOCYTE # (test 0.04 x10 3/uL 0.00-0.03 H code = IG#) LYMPHOCYTE # (test code = LY#) 1.6 K/mm3 0.6-3.2 N MONOCYTE # (test code = MO#) 1.0 K/mm3 0.3-1.1 N EOSINOPHIL # (test code = EO#) 0.7 K/mm3 0.0-0.4 H BASOPHIL # (test code = BA#) 0.1 K/mm3 0.0-0.1 N NUCLEATED RBC # (test code = 0.0 K/mm3 0.0-0.1 N NRBC#) MANUAL DIFF REQUIRED (test code NO DIFF/SCN CRITERIA = MDIFF) GLUCOSE BEDSIDE [id number] 21:11:00 Test Item Value Reference Range Interpretation Comments GLUCOSE BEDSIDE TESTING (test code 195 mg/dL 70-110 H = GLUBED) VANCOMYCIN [id number] 20:29:00 Test Item Value Reference Range Interpretation Comments VANCOMYCIN TROUGH (test code = 22.6 mcG/ML 10-20 H VANCT) - RETRO [id number] 18:55:00 Name: AILYN COBIAN [place] : 1955 Age/S: 64 / F [address] [address] Unit #: [id number] Loc: [place] [address] Phys: Giorgi Mejia DO Acct: [id number] Dis Date: Status: ADM IN PHONE #: [phone] Exam Date: 11/07/2019 1810 FAX #: Reason: GI on CKD vs CKD 3 EXAMS: CPT: [id number] [employer] [address] Examination: Ultrasound retroperitoneum limited Location code: H60 Comparison: None Discussion: Clinical history is remarkable for kidney disease. Right kidney measures 11.6 x 5.3 x 8.3 cm and left kidney measures 12.0 x 5.1 x 6.1 cm. Both kidneys are normal in echotexture. No echogenic renal calculi identified. There is no evidence for hydronephrosis. The bladder is not clearly visualized. Impression: 1. Normal ultrasound examination of kidneys. at 1855 Reported and signed by: Kevin Duran M.D. CC: Raleigh Roy MD; Giorgi Mejia DO Technologist: Fanny Marroquinncb Date/Time: 11/07/2019 (1854) GregVR5 PAGE 1 Signed Report Name: AILYN COBIAN [place] : 1955 Age/S: 64 / F [address] [facility] Unit #: [id number] Loc: [place] [address] Phys: Giorgi Mejia DO Acct: [id number] Dis Date: Status: ADM IN PHONE #: [phone] ExamDate: 11/07/2019 1810 FAX #: Reason: GI on CKD vs CKD 3 EXAMS: CPT: [id number] [employer] [address] <Continued> Orig Print D/T:S: 11/07/2019 (1858) Probe: PAGE2 Signed ReportGLUCOSE BEDSIDE [id number] 17:04:00 Test Item Value Reference Range Interpretation Comments GLUCOSE BEDSIDE TESTING (test code 174 mg/dL 70-110 H = GLUBED) PARATHYROID HORMONE [id number] 14:11:00 Test Item Value Reference Range Interpretation Comments PARATHYROID HORMONE INTACT (test 324.5 PG/ML 26-72 H code = PARAI) GLUCOSE BEDSIDE [id number] 12:20:00 Test Item Value Reference Range Interpretation Comments GLUCOSE BEDSIDE TESTING (test code 175 mg/dL 70-110 H = GLUBED) GLUCOSE BEDSIDE [id number] 08:16:00 Test Item Value Reference Range Interpretation Comments GLUCOSE BEDSIDE TESTING (test code 134 mg/dL 70-110 H = GLUBED) BASIC METABOLIC [id number] 06:31:00 Test Item Value Reference Range Interpretation Comments SODIUM (test code = NA) 139 mmol/L 134-147 N POTASSIUM (test code = K) 4.2 mmol/L 3.4-5.0 N CHLORIDE (test code = CL) 101 mmol/L 100-108 N CARBON DIOXIDE (test code = CO2) 34 mmol/L 21-32 H ANION GAP (test code = GAP) 4.0 GAP calc 4.0-15.0 N GLUCOSE (test code = GLU) 144 MG/DL 70-110 H BLOOD UREA NITROGEN (test code = 31 MG/DL 7-18 H BUN) GLOMERULAR FILTRATION RATE (test 30 estGFR >60 L code = GFR) CREATININE (test code = CREAT) 1.8 MG/DL 0.6-1.0 H CALCIUM (test code = CA) 8.5 MG/DL 8.5-10.1 N CBC W/AUTO [id number] 06:14:00 Test Item Value Reference Range Interpretation Comments WHITE BLOOD CELL (test code = 10.4 K/mm3 3.5-11.0 N WBC) RED BLOOD CELL (test code = 4.80 M/mm3 4.70-6.10 N RBC) HEMOGLOBIN (test code = HGB) 13.3 G/DL 10.4-14.9 N HEMATOCRIT (test code = HCT) 44.5 % 31.5-44.1 H MEAN CELL VOLUME (test code = 92.7 Fl 84.5-98.6 N MCV) MEAN CELL HGB (test code = MCH) 27.7 pg 27.0-34.2 N MEAN CELL HGB CONCETRATION 29.9 G/DL 31.5-34.0 L (test code = MCHC) RED CELL DISTRIBUTION WIDTH 16.9 SD 11.5-14.5 H (test code = RDW) PLATELET COUNT (test code = 228 K/mm3 150-450 N PLT) MEAN PLATELET VOLUME (test code 9.50 fL 7.0-10.5 N = MPV) NEUTROPHIL % (test code = NT%) 59.1 % 40-76 IMMATURE GRANULOCYTE % (test 0.6 % 0.0-5.0 N code = IG%) LYMPHOCYTE % (test code = LY%) 13.9 % 20.5-51.1 L MONOCYTE % (test code = MO%) 8.8 % 1.7-9.3 N EOSINOPHIL % (test code = EO%) 16.5 % 0.0-6.0 H BASOPHIL % (test code = BA%) 1.1 % 0.0-2.0 N NUCLEATED RBC % (test code = 0.0 /100WBC% 0.0-1.0 N NRBC%) NEUTROPHIL # (test code = NT#) 6.1 K/mm3 1.8-7.6 N IMMATURE GRANULOCYTE # (test 0.06 x10 3/uL 0.00-0.03 H code = IG#) LYMPHOCYTE # (test code = LY#) 1.5 K/mm3 0.6-3.2 N MONOCYTE # (test code = MO#) 0.9 K/mm3 0.3-1.1 N EOSINOPHIL # (test code = EO#) 1.7 K/mm3 0.0-0.4 H BASOPHIL # (test code = BA#) 0.1 K/mm3 0.0-0.1 N NUCLEATED RBC # (test code = 0.0 K/mm3 0.0-0.1 N NRBC#) MANUAL DIFF REQUIRED (test code NO DIFF/SCN CRITERIA = MDIFF) GLUCOSE BEDSIDE [id number] 19:58:00 Test Item Value Reference Range Interpretation Comments GLUCOSE BEDSIDE TESTING (test code = 79 mg/dL 70-110 N GLUBED) BASIC METABOLIC [id number] 19:14:00 Test Item Value Reference Range Interpretation Comments SODIUM (test code = NA) 135 mmol/L 134-147 N POTASSIUM (test code = K) 4.1 mmol/L 3.4-5.0 N CHLORIDE (test code = CL) 104 mmol/L 100-108 N CARBON DIOXIDE (test code = CO2) 27 mmol/L 21-32 N ANION GAP (test code = GAP) 4.0 GAP calc 4.0-15.0 N GLUCOSE (test code = GLU) 104 MG/DL 70-110 N BLOOD UREA NITROGEN (test code = 24 MG/DL 7-18 H BUN) GLOMERULAR FILTRATION RATE (test 48 estGFR >60 L code = GFR) CREATININE (test code = CREAT) 1.2 MG/DL 0.6-1.0 H CALCIUM (test code = CA) 8.3 MG/DL 8.5-10.1 L CBC W/AUTO [id number] 19:06:00 Test Item Value Reference Range Interpretation Comments WHITE BLOOD CELL (test code = 10.8 K/mm3 3.5-11.0 N WBC) RED BLOOD CELL (test code = 4.34 M/mm3 4.70-6.10 L RBC) HEMOGLOBIN (test code = HGB) 12.4 G/DL 10.4-14.9 N HEMATOCRIT (test code = HCT) 40.3 % 31.5-44.1 N MEAN CELL VOLUME (test code = 92.9 Fl 84.5-98.6 N MCV) MEAN CELL HGB (test code = MCH) 28.6 pg 27.0-34.2 N MEAN CELL HGB CONCETRATION 30.8 G/DL 31.5-34.0 L (test code = MCHC) RED CELL DISTRIBUTION WIDTH 17.0 SD 11.5-14.5 H (test code = RDW) PLATELET COUNT (test code = 203 K/mm3 150-450 N PLT) MEAN PLATELET VOLUME (test code 9.40 fL 7.0-10.5 N = MPV) NEUTROPHIL % (test code = NT%) 66.5 % 40-76 N IMMATURE GRANULOCYTE % (test 0.4 % 0.0-5.0 N code = IG%) LYMPHOCYTE % (test code = LY%) 9.1 % 20.5-51.1 L MONOCYTE % (test code = MO%) 7.3 % 1.7-9.3 N EOSINOPHIL % (test code = EO%) 16.0 % 0.0-6.0 H BASOPHIL % (test code = BA%) 0.7 % 0.0-2.0 N NUCLEATED RBC % (test code = 0.0 /100WBC% 0.0-1.0 N NRBC%) NEUTROPHIL # (test code = NT#) 7.2 K/mm3 1.8-7.6 N IMMATURE GRANULOCYTE # (test 0.04 x10 3/uL 0.00-0.03 H code = IG#) LYMPHOCYTE # (test code = LY#) 1.0 K/mm3 0.6-3.2 N MONOCYTE # (test code = MO#) 0.8 K/mm3 0.3-1.1 N EOSINOPHIL # (test code = EO#) 1.7 K/mm3 0.0-0.4 H BASOPHIL # (test code = BA#) 0.1 K/mm3 0.0-0.1 N NUCLEATED RBC # (test code = 0.0 K/mm3 0.0-0.1 N NRBC#) MANUAL DIFF REQUIRED (test code NO DIFF/SCN CRITERIA = MDIFF) COVID 19 INHOUSE [id number] 18:15:00 Test Item Value Reference Range Interpretation Comments COVID 19 INHOUSE AG NEGATIVE Negative Per manu facturer, (test code = negative result s should [id number]) be treated aspr esumptive and, if inconsi stent with clinical signs andsymptoms or necessary for patient man agement, should betested with an alternative mol ecular assay. Negative resultsdo not preclude SA RS-CoV-2 infection and s hould not be usedas the s ole basis for patient man agement decisions. Neg ative results should be considered in t he context of apatient's r ecent exposures, hist ory, presence of cli nicalsigns and symptoms co nsistent with COVID-19. Emergent procedure? YESGLUCOSE BEDSIDE [id number] 17:32:00 Test Item Value Reference Range Interpretation Comments GLUCOSE BEDSIDE TESTING (test code 126 mg/dL 70-110 H = GLUBED) GLUCOSE BEDSIDE [id number] 12:07:00 Test Item Value Reference Range Interpretation Comments GLUCOSE BEDSIDE TESTING (test code 291 mg/dL 70-110 H = GLUBED) - XR CHEST 1 [id number] 11:47:00 Name: MANGOAILYN [facility] : 1955 Age/S: 64 / F [address] [address] Unit #: [id number] Loc: [place] [address] Phys: Raleigh Roy MD Acct: [id number] Dis Date: Status: ADM IN PHONE #: [phone] Exam Date: 10/30/2019 1140 FAX #: Reason: chest pain EXAMS: CPT: [id number] XR CHEST 1 V [id number] Fluoro Time: DAP (Gy m2): Air Kerma (mGy): EXAM: - XR CHEST 1 V Location code:C3 HISTORY: chest pain COMPARISON: 08/20/2019 FINDINGS: Single AP view of the chest is provided. Cardiomegaly with median sternotomy changes are similar. The lungs are clear of focal consolidation. No effusion, pneumothorax, or acute osseous abnormality. IMPRESSION: 1. Unchanged cardiomegaly. at 1147 Reported and signed by: Sherman Muniz MD CC: Raleigh Roy MD PAGE 1 Signed Report Name: AILYN COBIAN [place] : 1955 Age/S: 64 / F [address] [place] [address] Unit #: [id number] Loc: [place] [address] Phys: Raleigh Roy MD Acct: [id number] Dis Date: Status: ADM IN PHONE #: [phone] Exam Date: 10/30/2019 1140 FAX#: Reason: chest pain EXAMS: CPT: [id number] XR CHEST 1 V 50114 Fluoro Time: DAP (Gy m2): Air Kerma (mGy): <Continued> Technologist: Kwesi Montalvo RT(R)(CT) Trnscb Date/Time: 10/30/2019 (1147) [email or web address] Orig Print D/T: S: 10/30/2019 (1150) PAGE 2 Signed ReportGLUCOSE BEDSIDE [id number] 07:48:00 Test Item Value Reference Range Interpretation Comments GLUCOSE BEDSIDE TESTING (test code 255 mg/dL 70-110 H = GLUBED) BASIC METABOLIC [id number] 06:38:00 Test Item Value Reference Range Interpretation Comments SODIUM (test code = NA) 136 mmol/L 134-147 N POTASSIUM (test code = K) 3.9 mmol/L 3.4-5.0 N CHLORIDE (test code = CL) 104 mmol/L 100-108 N CARBON DIOXIDE (test code = CO2) 28 mmol/L 21-32 N ANION GAP (test code = GAP) 4.0 GAP calc 4.0-15.0 N GLUCOSE (test code = GLU) 271 MG/DL 70-110 H BLOOD UREA NITROGEN (test code = 27 MG/DL 7-18 H BUN) GLOMERULAR FILTRATION RATE (test 48 estGFR >60 L code = GFR) CREATININE (test code = CREAT) 1.2 MG/DL 0.6-1.0 H CALCIUM (test code = CA) 8.2 MG/DL 8.5-10.1 L [id number] 06:38:00 Test Item Value Reference Range Interpretation Comments MAGNESIUM (test code = MAG) 2.1 MG/DL 1.8-2.4 N CBC W/AUTO [id number] 06:25:00 Test Item Value Reference Range Interpretation Comments WHITE BLOOD CELL (test code = 7.1 K/mm3 3.5-11.0 N WBC) RED BLOOD CELL (test code = 4.34 M/mm3 4.70-6.10 L RBC) HEMOGLOBIN (test code = HGB) 12.0 G/DL 10.4-14.9 N HEMATOCRIT (test code = HCT) 39.9 % 31.5-44.1 N MEAN CELL VOLUME (test code = 91.9 Fl 84.5-98.6 N MCV) MEAN CELL HGB (test code = MCH) 27.6 pg 27.0-34.2 N MEAN CELL HGB CONCETRATION 30.1 G/DL 31.5-34.0 L (test code = MCHC) RED CELL DISTRIBUTION WIDTH 16.5 SD 11.5-14.5 H (test code = RDW) PLATELET COUNT (test code = 185 K/mm3 150-450 N PLT) MEAN PLATELET VOLUME (test code 9.20 fL 7.0-10.5 N = MPV) NEUTROPHIL % (test code = NT%) 63.5 % 40-76 N IMMATURE GRANULOCYTE % (test 0.4 % 0.0-5.0 N code = IG%) LYMPHOCYTE % (test code = LY%) 12.0 % 20.5-51.1 L MONOCYTE % (test code = MO%) 6.6 % 1.7-9.3 N EOSINOPHIL % (test code = EO%) 16.5 % 0.0-6.0 H BASOPHIL % (test code = BA%) 1.0 % 0.0-2.0 N NUCLEATED RBC % (test code = 0.0 /100WBC% 0.0-1.0 N NRBC%) NEUTROPHIL # (test code = NT#) 4.5 K/mm3 1.8-7.6 N IMMATURE GRANULOCYTE # (test 0.03 x10 3/uL 0.00-0.03 N code = IG#) LYMPHOCYTE # (test code = LY#) 0.9 K/mm3 0.6-3.2 N MONOCYTE # (test code = MO#) 0.5 K/mm3 0.3-1.1 N EOSINOPHIL # (test code = EO#) 1.2 K/mm3 0.0-0.4 H BASOPHIL # (test code = BA#) 0.1 K/mm3 0.0-0.1 N NUCLEATED RBC # (test code = 0.0 K/mm3 0.0-0.1 N NRBC#) MANUAL DIFF REQUIRED (test code NO DIFF/SCN CRITERIA = MDIFF) GLUCOSE BEDSIDE [id number] 20:19:00 Test Item Value Reference Range Interpretation Comments GLUCOSE BEDSIDE TESTING (test code 115 mg/dL 70-110 H = GLUBED) GLUCOSE BEDSIDE [id number] 17:06:00 Test Item Value Reference Range Interpretation Comments GLUCOSE BEDSIDE TESTING (test code 120 mg/dL 70-110 H = GLUBED) GLUCOSE BEDSIDE [id number] 12:08:00 Test Item Value Reference Range Interpretation Comments GLUCOSE BEDSIDE TESTING (test code 211 mg/dL 70-110 H = GLUBED) [id number] 10:09:00 Test Item Value Reference Range Interpretation Comments VANCOMYCIN (test code = VANCO) 27.1 mcG/ML 5-40 N GLUCOSE BEDSIDE [id number] 08:07:00 Test Item Value Reference Range Interpretation Comments GLUCOSE BEDSIDE TESTING (test code 273 mg/dL 70-110 H = GLUBED) CBC W/AUTO [id number] 05:11:00 Test Item Value Reference Range Interpretation Comments WHITE BLOOD CELL 8.6 K/mm3 3.5-11.0 N (test code = WBC) RED BLOOD CELL (test 4.75 M/mm3 4.70-6.10 N code = RBC) HEMOGLOBIN (test code 12.9 G/DL 10.4-14.9 N = HGB) HEMATOCRIT (test code 44.6 % 31.5-44.1 H = HCT) MEAN CELL VOLUME 93.9 Fl 84.5-98.6 N (test code = MCV) MEAN CELL HGB (test 27.2 pg 27.0-34.2 N code = MCH) MEAN CELL HGB 28.9 G/DL 31.5-34.0 L CONCETRATION (test code = MCHC) RED CELL DISTRIBUTION 16.7 SD 11.5-14.5 H WIDTH (test code = RDW) PLATELET COUNT (test 225 K/mm3 150-450 N code = PLT) MEAN PLATELET VOLUME 8.70 fL 7.0-10.5 N (test code = MPV) NEUTROPHIL % (test 57.8 % 40-76 code = NT%) IMMATURE GRANULOCYTE 0.3 % 0.0-5.0 N % (test code = IG%) LYMPHOCYTE % (test 13.7 % 20.5-51.1 L code = LY%) MONOCYTE % (test code 7.8 % 1.7-9.3 N = MO%) EOSINOPHIL % (test 19.7 % 0.0-6.0 H code = EO%) BASOPHIL % (test code 0.7 % 0.0-2.0 N = BA%) NUCLEATED RBC % (test 0.0 /100WBC% 0.0-1.0 N code = NRBC%) NEUTROPHIL # (test 5.0 K/mm3 1.8-7.6 N code = NT#) IMMATURE GRANULOCYTE 0.03 x10 3/uL 0.00-0.03 N # (test code = IG#) LYMPHOCYTE # (test 1.2 K/mm3 0.6-3.2 N code = LY#) MONOCYTE # (test code 0.7 K/mm3 0.3-1.1 N = MO#) EOSINOPHIL # (test 1.7 K/mm3 0.0-0.4 H code = EO#) BASOPHIL # (test code 0.1 K/mm3 0.0-0.1 N = BA#) NUCLEATED RBC # (test 0.0 K/mm3 0.0-0.1 N code = NRBC#) MANUAL DIFF REQUIRED NO DIFF/SCN CRITERIA SLIDE Mandy ENNIS (test code = MDIFF) CONSISTA NT WITH AUTO DIFFERENTI AL. BASIC METABOLIC [id number] 05:04:00 Test Item Value Reference Range Interpretation Comments SODIUM (test code = NA) 135 mmol/L 134-147 N POTASSIUM (test code = K) 3.9 mmol/L 3.4-5.0 N CHLORIDE (test code = CL) 102 mmol/L 100-108 N CARBON DIOXIDE (test code = CO2) 28 mmol/L 21-32 N ANION GAP (test code = GAP) 5.0 GAP calc 4.0-15.0 N GLUCOSE (test code = GLU) 234 MG/DL 70-110 H BLOOD UREA NITROGEN (test code = 27 MG/DL 7-18 H BUN) GLOMERULAR FILTRATION RATE (test 40 estGFR >60 L code = GFR) CREATININE (test code = CREAT) 1.4 MG/DL 0.6-1.0 H CALCIUM (test code = CA) 8.5 MG/DL 8.5-10.1 N [id number] 05:04:00 Test Item Value Reference Range Interpretation Comments MAGNESIUM (test code = MAG) 2.2 MG/DL 1.8-2.4 N CBC W/AUTO [id number] 04:43:00 Test Item Value Reference Range Interpretation Comments WHITE BLOOD CELL (test code = WBC) 8.6 K/mm3 3.5-11.0 N RED BLOOD CELL (test code = RBC) 4.75 M/mm3 4.70-6.10 N HEMOGLOBIN (test code = HGB) 12.9 G/DL 10.4-14.9 N HEMATOCRIT (test code = HCT) 44.6 % 31.5-44.1 H MEAN CELL VOLUME (test code = MCV) 93.9 Fl 84.5-98.6 N MEAN CELL HGB (test code = MCH) 27.2 pg 27.0-34.2 N MEAN CELL HGB CONCETRATION (test 28.9 G/DL 31.5-34.0 L code = MCHC) RED CELL DISTRIBUTION WIDTH (test SD 11.5-14.5 H code = RDW) PLATELET COUNT (test code = PLT) 225 K/mm3 150-450 N MEAN PLATELET VOLUME (test code = fL 7.0-10.5 N MPV) NEUTROPHIL % (test code = NT%) % 40-76 IMMATURE GRANULOCYTE % (test code % 0.0-5.0 N = IG%) LYMPHOCYTE % (test code = LY%) % 20.5-51.1 L MONOCYTE % (test code = MO%) % 1.7-9.3 N EOSINOPHIL % (test code = EO%) % 0.0-6.0 H BASOPHIL % (test code = BA%) % 0.0-2.0 N NUCLEATED RBC % (test code = /100WBC% 0.0-1.0 N NRBC%) NEUTROPHIL # (test code = NT#) K/mm3 1.8-7.6 N IMMATURE GRANULOCYTE # (test code x10 3/uL 0.00-0.03 N = IG#) LYMPHOCYTE # (test code = LY#) K/mm3 0.6-3.2 N MONOCYTE # (test code = MO#) K/mm3 0.3-1.1 N EOSINOPHIL # (test code = EO#) K/mm3 0.0-0.4 H BASOPHIL # (test code = BA#) K/mm3 0.0-0.1 N NUCLEATED RBC # (test code = K/mm3 0.0-0.1 N NRBC#) MANUAL DIFF REQUIRED (test code = DIFF/SCN CRITERIA MDIFF) GLUCOSE BEDSIDE [id number] 20:39:00 Test Item Value Reference Range Interpretation Comments GLUCOSE BEDSIDE TESTING (test code 195 mg/dL 70-110 H = GLUBED) GLUCOSE BEDSIDE [id number] 17:53:00 Test Item Value Reference Range Interpretation Comments GLUCOSE BEDSIDE TESTING (test code 205 mg/dL 70-110 H = GLUBED) - RETRO [id number] 14:10:00 Name: MANGOAILYNMOIZ KAISERBlake [place] : 1955 Age/S: 64 / F [address] Unit #: [id number] Loc: [place] [address] Phys: Giorgi Mejia DO Acct: [id number] Dis Date: Status: ADM IN PHONE #: [phone] Exam Date: 10/28/2019 1325 FAX #: Reason: GI on CKD vs CKD EXAMS: CPT: [id number] Combined Effort 267[address] Location ofdictation: B2 ULTRASOUND OF THE KIDNEYS: CLINICAL HISTORY: Acute on chronic versus chronic renal disease COMPARISON: None TECHNIQUE: Multiple high resolution images were obtained through the kidneys using a multifrequency curved transducer. FINDINGS: The bilateral kidneys are normal in size, shape, and echogenicity. The right kidney measures 10.2 x 4.6 x 4.3 cm. The left kidney measures 10.8 x 5 x 4.7 cm. No focal mass, calcifications or hydronephrosis is seen. The bladder is well distended with no wall thickening or filling defect. Normal jets were demonstrated bilaterally. Incidental note made of gallbladder sludge and stones. IMPRESSION: 1. Unremarkable ultrasonographic study of the kidneys and bladder. 2. Incidental gallbladder sludge and stones. at 1410 Reported and signed by: Carole Max M.D. CC: Raleigh Roy MD; Giorgi Mejia DO Technologist: Carli Lakhani Trnscb Date/Time: 10/28/2019 (1410) GregPXC PAGE 1 Signed Report Name: AILYN COBIAN [place] : 1955 Age/S: 64 / F [address] Unit #:[id number] Loc: [place] [address] Phys: Giorgi Mejia DO Acct: [id number] Dis Date: Status: ADM IN PHONE #: [phone] Exam Date: 10/28/2019 1325 FAX #: Reason: GI on CKD vs CKD EXAMS: CPT: [id number] [employer] [id number] <Continued> Orig Print D/T: S: 10/28/2019 (8281) Probe: PAGE 2 Signed ReportGLUCOSE BEDSIDE [id number] 12:33:00 Test Item Value Reference Range Interpretation Comments GLUCOSE BEDSIDE TESTING (test code 243 mg/dL 70-110 H = GLUBED) GLYCOSYLATED HEMOGLOBIN [id number] 10:34:00 Test Item Value Reference Range Interpretation Comments GLYCOSYLATED HEMOGLOBIN (HA1C) 9.6 % A1C 0.0-5.7 H (test code = GLYHGB) ESTIMATED AVERAGE GLUCOSE (test 229 MG/DLest code = EAG) LIPID PROFILE (CORONARY RISK)2019-10-28 10:13:00 Test Item Value Reference Range Interpretation Comments TRIGLYCERIDES (test code = TRIG) 79 MG/DL 0-150 N CHOLESTEROL (test code = CHOL) 107 MG/DL 133-200 L CHOLESTEROL/HDL RATIO (test code = 2.23 RATIO >0 CHOLHDL) HDL CHOLESTEROL (test code = HDL) 48 MG/DL 40-59 N NON-HDL CHOLESTEROL (test code = 59 mg/dL <130 NHDL) LIPOPROTEIN LDL (test code = LDL) 59 MG/DL 0-129 N LDL/HDL (test code = LDL/HDL) 1.22 Ratio 1.48-3.22 Avg L BASIC METABOLIC [id number] 05:40:00 Test Item Value Reference Range Interpretation Comments SODIUM (test code = NA) 137 mmol/L 134-147 N POTASSIUM (test code = K) 4.0 mmol/L 3.4-5.0 N CHLORIDE (test code = CL) 106 mmol/L 100-108 N CARBON DIOXIDE (test code = CO2) 27 mmol/L 21-32 N ANION GAP (test code = GAP) 4.0 GAP calc 4.0-15.0 N GLUCOSE (test code = GLU) 188 MG/DL 70-110 H BLOOD UREA NITROGEN (test code = 20 MG/DL 7-18 H BUN) GLOMERULAR FILTRATION RATE (test 53 estGFR >60 L code = GFR) CREATININE (test code = CREAT) 1.1 MG/DL 0.6-1.0 H CALCIUM (test code = CA) 8.5 MG/DL 8.5-10.1 N BASIC METABOLIC [id number] 05:33:00 Test Item Value Reference Range Interpretation Comments SODIUM (test code = NA) 137 mmol/L 134-147 N POTASSIUM (test code = K) 4.0 mmol/L 3.4-5.0 N CHLORIDE (test code = CL) 106 mmol/L 100-108 N CARBON DIOXIDE (test code = CO2) 27 mmol/L 21-32 N ANION GAP (test code = GAP) 4.0 GAP calc 4.0-15.0 N GLUCOSE (test code = GLU) 188 MG/DL 70-110 H BLOOD UREA NITROGEN (test code = 20 MG/DL 7-18 H BUN) GLOMERULAR FILTRATION RATE (test estGFR >60 code = GFR) CREATININE (test code = CREAT) MG/DL 0.6-1.0 CALCIUM (test code = CA) 8.5 MG/DL 8.5-10.1 N CBC W/AUTO [id number] 05:27:00 Test Item Value Reference Range Interpretation Comments WHITE BLOOD CELL (test code = 9.6 K/mm3 3.5-11.0 N WBC) RED BLOOD CELL (test code = 4.76 M/mm3 4.70-6.10 N RBC) HEMOGLOBIN (test code = HGB) 13.2 G/DL 10.4-14.9 N HEMATOCRIT (test code = HCT) 43.7 % 31.5-44.1 N MEAN CELL VOLUME (test code = 91.8 Fl 84.5-98.6 N MCV) MEAN CELL HGB (test code = MCH) 27.7 pg 27.0-34.2 N MEAN CELL HGB CONCETRATION 30.2 G/DL 31.5-34.0 L (test code = MCHC) RED CELL DISTRIBUTION WIDTH 16.8 SD 11.5-14.5 H (test code = RDW) PLATELET COUNT (test code = 236 K/mm3 150-450 N PLT) MEAN PLATELET VOLUME (test code 8.90 fL 7.0-10.5 N = MPV) NEUTROPHIL % (test code = NT%) 65.4 % 40-76 N IMMATURE GRANULOCYTE % (test 0.4 % 0.0-5.0 N code = IG%) LYMPHOCYTE % (test code = LY%) 11.1 % 20.5-51.1 L MONOCYTE % (test code = MO%) 10.9 % 1.7-9.3 H EOSINOPHIL % (test code = EO%) 11.4 % 0.0-6.0 H BASOPHIL % (test code = BA%) 0.8 % 0.0-2.0 N NUCLEATED RBC % (test code = 0.0 /100WBC% 0.0-1.0 N NRBC%) NEUTROPHIL # (test code = NT#) 6.3 K/mm3 1.8-7.6 N IMMATURE GRANULOCYTE # (test 0.04 x10 3/uL 0.00-0.03 H code = IG#) LYMPHOCYTE # (test code = LY#) 1.1 K/mm3 0.6-3.2 N MONOCYTE # (test code = MO#) 1.0 K/mm3 0.3-1.1 N EOSINOPHIL # (test code = EO#) 1.1 K/mm3 0.0-0.4 H BASOPHIL # (test code = BA#) 0.1 K/mm3 0.0-0.1 N NUCLEATED RBC # (test code = 0.0 K/mm3 0.0-0.1 N NRBC#) MANUAL DIFF REQUIRED (test code NO DIFF/SCN CRITERIA = MDIFF) [id number] 01:51:00 Test Item Value Reference Range Interpretation Comments TROPONIN-I (test < 0.015 NG/ML 0.000-0.045 N Negative: </= 0.045 code = TROPI) Positive: >/= 0.046 Correlation wit h serial results, other cardiac markers, and cl inical findings is nec essary to determine the c linical significance of this result. Quantit ative results using d ifferent methodologies s hould not be compared to one another as nume rical results may valerie yby method. Completed by Nursing: [id number] 22:58:00 Test Item Value Reference Range Interpretation Comments TROPONIN-I (test < 0.015 NG/ML 0.000-0.045 N Negative: </= 0.045 code = TROPI) Positive: >/= 0.046 Correlation wit h serial results, other cardiac markers, and cl inical findings is nec essary to determine the c linical significance of this result. Quantit ative results using d ifferent methodologies s hould not be compared to one another as nume rical results may valerie yby method. Completed by Nursing: NOCOVID 19 Asymptomatic IH [id number] 21:23:00 Test Item Value Reference Range Interpretation Comments COVID 19 Asymptomatic NEGATIVE Negative Per ma nufacturer, IH AG (test code = negative results should COVNONPUIAG) be treated aspresumptive a nd, if inconsistent wi th clinical signs andsymptoms or necessary for p atient management, nacho uld betested with a n alternative mol ecular assay. Negative resultsdo not p reclude SARS-CoV-2 infe ction and should not be usedas the sole basis for patient man agement decisions. Neg ative results should be considered in t he context of apat ient's recent exposure s, history, prese nce of clinicalsigns a nd symptoms consis tent with COVID-19. Emergent procedure? NORHEUMATOID FACTOR [id number] 17:08:00 Test Item Value Reference Range Interpretation Comments RHEUMATOID FACTOR <10.0 IU/mL 0.0-13.9 Performed At: HD SCREEN (test code = [facility] [id number] RA) [place], [place] [id number] Gaytan MD Ph:[phone] ANTINUCLEAR ANTIBODIES [id number] 17:08:00 Test Item Value Reference Range Interpretation Comments NAVI TITER (test code Negative () = ANATITR) Nega tive <1:80 Borderline 1:8 0 Positive >1:80Performed At: [facility] [address] [id number] Gaytan MD Ph:[phone] NEUTROPHIL CYTOPLASMIC [id number] 17:08:00 Test Item Value Reference Range Interpretation Comments AB <1:20 titer Neg:<1:20 ANTI-NEUTROPHIL CYTO C (test code = NEUTCABC) AB <1:20 titer Neg:<1:20 The presence of positive ANTI-NEUTROPHIL fluorescence exhibiting CYTO P (test P-ANCA orC-ANCA patterns code = alone is not sp ecific for NEUTCAB-P) the diagnosis o fWegener's Granulomatosis (WG) or microscopic polyangiitis.De cisions about treatment should not be based solely onANCA IFA results. The International A NCA Group Consensusrecomm ends follow up testing of p ositive sera with both KY-3 and MPO-ANCA enzyme immunoassays. A s many as 5% serumsamples are positive only b y EIA. Ref. AM J Clin Lurwwu5234;111: 507-513. ATYPICAL ANCA <1:20 titer Neg:<1:20 The atypical p ANCA pattern (test code = has been observ ed in ANCACOM) asignificant pe rcentage of patients with u lcerative colitis,primary sclerosing cholangitis and autoimmune hepatitis.Perfo rmed At: [facility] [place], [place] [id number] ra Apple THOMPSON Ph:[phone] RHEUMATOID FACTOR [id number] 13:10:00 Test Item Value Reference Range Interpretation Comments RHEUMATOID FACTOR <10.0 IU/mL 0.0-13.9 Performed At: HD SCREEN (test code = [facility] [id number] ) [place], [place] [id number] Gaytan MD Ph:[phone] ANTINUCLEAR ANTIBODIES [id number] 13:10:00 Test Item Value Reference Range Interpretation Comments NAVI TITER (test code Negative () = ANATITR) Nega tive <1:80 Borderline 1:8 0 Positive >1:80Performed At: [address] [id number] Gaytan MD Ph:[phone] NEUTROPHIL CYTOPLASMIC [id number] 13:10:00 Test Item Value Reference Range Interpretation Comments AB ANTI-NEUTROPHIL CYTO C (test code = NEUTCABC) AB ANTI-NEUTROPHIL CYTO P (test code = NEUTCAB-P) ATYPICAL ANCA (test code = ANCACOM) RHEUMATOID FACTOR [id number] 09:11:00 Test Item Value Reference Range Interpretation Comments RHEUMATOID FACTOR <10.0 IU/mL 0.0-13.9 Performed At: SCREEN (test code = [facility] Dryobgd7456 ) [place], [place] [id number] Gaytan MD Ph:[phone] ANTINUCLEAR ANTIBODIES [id number] 09:11:00 Test Item Value Reference Range Interpretation Comments NAVI TITER (test code = ANATITR) NEUTROPHIL CYTOPLASMIC [id number] 09:11:00 Test Item Value Reference Range Interpretation Comments AB ANTI-NEUTROPHIL CYTO C (test code = NEUTCABC) AB ANTI-NEUTROPHIL CYTO P (test code = NEUTCAB-P) ATYPICAL ANCA (test code = ANCACOM) GLUCOSE BEDSIDE [id number] 08:06:00 Test Item Value Reference Range Interpretation Comments GLUCOSE BEDSIDE TESTING (test code 159 mg/dL 70-110 H = GLUBED) GLUCOSE BEDSIDE [id number] 06:24:00 Test Item Value Reference Range Interpretation Comments GLUCOSE BEDSIDE TESTING (test code 137 mg/dL 70-110 H = GLUBED) BASIC METABOLIC [id number] 06:18:00 Test Item Value Reference Range Interpretation Comments SODIUM (test code = NA) 140 mmol/L 134-147 N POTASSIUM (test code = 3.7 mmol/L 3.4-5.0 N K) CHLORIDE (test code = 105 mmol/L 100-108 N CL) CARBON DIOXIDE (test 31 mmol/L 21-32 N code = CO2) ANION GAP (test code = 4.0 GAP calc 4.0-15.0 N GAP) GLUCOSE (test code = 80 MG/DL 70-110 N GLU) BLOOD UREA NITROGEN 24 MG/DL 7-18 H (test code = BUN) GLOMERULAR FILTRATION >=60 max estimate >60 RATE (test code = GFR) estGFR CREATININE (test code = 0.8 MG/DL 0.6-1.0 N CREAT) CALCIUM (test code = CA) 8.3 MG/DL 8.5-10.1 L CBC W/AUTO [id number] 06:02:00 Test Item Value Reference Range Interpretation Comments WHITE BLOOD CELL (test code = 6.5 K/mm3 3.5-11.0 N WBC) RED BLOOD CELL (test code = 4.86 M/mm3 4.70-6.10 N RBC) HEMOGLOBIN (test code = HGB) 13.4 G/DL 10.4-14.9 N HEMATOCRIT (test code = HCT) 44.8 % 31.5-44.1 H MEAN CELL VOLUME (test code = 92.2 Fl 84.5-98.6 N MCV) MEAN CELL HGB (test code = MCH) 27.6 pg 27.0-34.2 N MEAN CELL HGB CONCETRATION 29.9 G/DL 31.5-34.0 L (test code = MCHC) RED CELL DISTRIBUTION WIDTH 16.3 SD 11.5-14.5 H (test code = RDW) PLATELET COUNT (test code = 293 K/mm3 150-450 N PLT) MEAN PLATELET VOLUME (test code 9.40 fL 7.0-10.5 N = MPV) NEUTROPHIL % (test code = NT%) 61.3 % 40-76 LYMPHOCYTE % (test code = LY%) 23.4 % 20.5-51.1 N MONOCYTE % (test code = MO%) 12.0 % 1.7-9.3 H EOSINOPHIL % (test code = EO%) 2.2 % 0.0-6.0 N BASOPHIL % (test code = BA%) 0.3 % 0.0-2.0 N NUCLEATED RBC % (test code = 0.0 /100WBC% 0.0-1.0 N NRBC%) NEUTROPHIL # (test code = NT#) 4.0 K/mm3 1.8-7.6 N IMMATURE GRANULOCYTE # (test 0.05 x10 3/uL 0.00-0.03 H code = IG#) LYMPHOCYTE # (test code = LY#) 1.5 K/mm3 0.6-3.2 N MONOCYTE # (test code = MO#) 0.8 K/mm3 0.3-1.1 N EOSINOPHIL # (test code = EO#) 0.1 K/mm3 0.0-0.4 N BASOPHIL # (test code = BA#) 0.0 K/mm3 0.0-0.1 N NUCLEATED RBC # (test code = 0.0 K/mm3 0.0-0.1 N NRBC#) MANUAL DIFF REQUIRED (test code NO DIFF/SCN CRITERIA = MDIFF) GLUCOSE BEDSIDE [id number] 05:41:00 Test Item Value Reference Range Interpretation Comments GLUCOSE BEDSIDE TESTING (test code = 74 mg/dL 70-110 N GLUBED) GLUCOSE BEDSIDE [id number] 20:51:00 Test Item Value Reference Range Interpretation Comments GLUCOSE BEDSIDE TESTING (test code 207 mg/dL 70-110 H = GLUBED) GLUCOSE BEDSIDE [id number] 19:59:00 Test Item Value Reference Range Interpretation Comments GLUCOSE BEDSIDE TESTING (test code 185 mg/dL 70-110 H = GLUBED) GLUCOSE BEDSIDE [id number] 19:51:00 Test Item Value Reference Range Interpretation Comments GLUCOSE BEDSIDE TESTING (test code 174 mg/dL 70-110 H = GLUBED) GLUCOSE BEDSIDE [id number] 12:01:00 Test Item Value Reference Range Interpretation Comments GLUCOSE BEDSIDE TESTING (test code = 99 mg/dL 70-110 N GLUBED) GLUCOSE BEDSIDE [id number] 10:01:00 Test Item Value Reference Range Interpretation Comments GLUCOSE BEDSIDE TESTING (test code = 96 mg/dL 70-110 N GLUBED) BASIC METABOLIC [id number] 06:37:00 Test Item Value Reference Range Interpretation Comments SODIUM (test code = NA) 138 mmol/L 134-147 N POTASSIUM (test code = 3.9 mmol/L 3.4-5.0 N K) CHLORIDE (test code = 103 mmol/L 100-108 N CL) CARBON DIOXIDE (test 32 mmol/L 21-32 N code = CO2) ANION GAP (test code = 3.0 GAP calc 4.0-15.0 L GAP) GLUCOSE (test code = 153 MG/DL 70-110 H GLU) BLOOD UREA NITROGEN 30 MG/DL 7-18 H (test code = BUN) GLOMERULAR FILTRATION >=60 max estimate >60 RATE (test code = GFR) estGFR CREATININE (test code = 0.9 MG/DL 0.6-1.0 N CREAT) CALCIUM (test code = CA) 8.6 MG/DL 8.5-10.1 N CBC W/AUTO [id number] 06:31:00 Test Item Value Reference Range Interpretation Comments WHITE BLOOD CELL (test code = 8.7 K/mm3 3.5-11.0 N WBC) RED BLOOD CELL (test code = 4.54 M/mm3 4.70-6.10 L RBC) HEMOGLOBIN (test code = HGB) 12.6 G/DL 10.4-14.9 N HEMATOCRIT (test code = HCT) 42.1 % 31.5-44.1 N MEAN CELL VOLUME (test code = 92.7 Fl 84.5-98.6 N MCV) MEAN CELL HGB (test code = MCH) 27.8 pg 27.0-34.2 N MEAN CELL HGB CONCETRATION 29.9 G/DL 31.5-34.0 L (test code = MCHC) RED CELL DISTRIBUTION WIDTH 16.0 SD 11.5-14.5 H (test code = RDW) PLATELET COUNT (test code = 243 K/mm3 150-450 N PLT) MEAN PLATELET VOLUME (test code 9.40 fL 7.0-10.5 N = MPV) NEUTROPHIL % (test code = NT%) 78.7 % 40-76 H LYMPHOCYTE % (test code = LY%) 11.4 % 20.5-51.1 L MONOCYTE % (test code = MO%) 9.2 % 1.7-9.3 N EOSINOPHIL % (test code = EO%) 0.0 % 0.0-6.0 N BASOPHIL % (test code = BA%) 0.1 % 0.0-2.0 N NUCLEATED RBC % (test code = 0.0 /100WBC% 0.0-1.0 N NRBC%) NEUTROPHIL # (test code = NT#) 6.9 K/mm3 1.8-7.6 N IMMATURE GRANULOCYTE # (test 0.05 x10 3/uL 0.00-0.03 H code = IG#) LYMPHOCYTE # (test code = LY#) 1.0 K/mm3 0.6-3.2 N MONOCYTE # (test code = MO#) 0.8 K/mm3 0.3-1.1 N EOSINOPHIL # (test code = EO#) 0.0 K/mm3 0.0-0.4 N BASOPHIL # (test code = BA#) 0.0 K/mm3 0.0-0.1 N NUCLEATED RBC # (test code = 0.0 K/mm3 0.0-0.1 N NRBC#) MANUAL DIFF REQUIRED (test code NO DIFF/SCN CRITERIA = MDIFF) GLUCOSE BEDSIDE [id number] 21:06:00 Test Item Value Reference Range Interpretation Comments GLUCOSE BEDSIDE TESTING (test code 315 mg/dL 70-110 H = GLUBED) GLUCOSE BEDSIDE [id number] 17:01:00 Test Item Value Reference Range Interpretation Comments GLUCOSE BEDSIDE TESTING (test code 368 mg/dL 70-110 H = GLUBED) VANCOMYCIN [id number] 16:41:00 Test Item Value Reference Range Interpretation Comments VANCOMYCIN TROUGH (test code = 20.4 mcG/ML 10-20 H VANCT) GLUCOSE BEDSIDE [id number] 11:27:00 Test Item Value Reference Range Interpretation Comments GLUCOSE BEDSIDE TESTING (test code 128 mg/dL 70-110 H = GLUBED) BASIC METABOLIC [id number] 08:49:00 Test Item Value Reference Range Interpretation Comments SODIUM (test code = NA) 138 mmol/L 134-147 N POTASSIUM (test code = 3.8 mmol/L 3.4-5.0 N K) CHLORIDE (test code = 102 mmol/L 100-108 N CL) CARBON DIOXIDE (test 33 mmol/L 21-32 H code = CO2) ANION GAP (test code = 3.0 GAP calc 4.0-15.0 L GAP) GLUCOSE (test code = 150 MG/DL 70-110 H GLU) BLOOD UREA NITROGEN 30 MG/DL 7-18 H (test code = BUN) GLOMERULAR FILTRATION >=60 max estimate >60 RATE (test code = GFR) estGFR CREATININE (test code = 0.9 MG/DL 0.6-1.0 N CREAT) CALCIUM (test code = CA) 8.9 MG/DL 8.5-10.1 N GLUCOSE BEDSIDE [id number] 08:31:00 Test Item Value Reference Range Interpretation Comments GLUCOSE BEDSIDE TESTING (test code 160 mg/dL 70-110 H = GLUBED) CBC W/AUTO [id number] 08:26:00 Test Item Value Reference Range Interpretation Comments WHITE BLOOD CELL (test code = 13.3 K/mm3 3.5-11.0 H WBC) RED BLOOD CELL (test code = 4.88 M/mm3 4.70-6.10 N RBC) HEMOGLOBIN (test code = HGB) 13.3 G/DL 10.4-14.9 N HEMATOCRIT (test code = HCT) 44.8 % 31.5-44.1 H MEAN CELL VOLUME (test code = 91.8 Fl 84.5-98.6 N MCV) MEAN CELL HGB (test code = MCH) 27.3 pg 27.0-34.2 N MEAN CELL HGB CONCETRATION 29.7 G/DL 31.5-34.0 L (test code = MCHC) RED CELL DISTRIBUTION WIDTH 16.3 SD 11.5-14.5 H (test code = RDW) PLATELET COUNT (test code = 299 K/mm3 150-450 N PLT) MEAN PLATELET VOLUME (test code 9.40 fL 7.0-10.5 N = MPV) NEUTROPHIL % (test code = NT%) 83.9 % 40-76 H LYMPHOCYTE % (test code = LY%) 9.6 % 20.5-51.1 L MONOCYTE % (test code = MO%) 5.9 % 1.7-9.3 N EOSINOPHIL % (test code = EO%) 0.0 % 0.0-6.0 N BASOPHIL % (test code = BA%) 0.2 % 0.0-2.0 N NUCLEATED RBC % (test code = 0.0 /100WBC% 0.0-1.0 N NRBC%) NEUTROPHIL # (test code = NT#) 11.2 K/mm3 1.8-7.6 H IMMATURE GRANULOCYTE # (test 0.05 x10 3/uL 0.00-0.03 H code = IG#) LYMPHOCYTE # (test code = LY#) 1.3 K/mm3 0.6-3.2 N MONOCYTE # (test code = MO#) 0.8 K/mm3 0.3-1.1 N EOSINOPHIL # (test code = EO#) 0.0 K/mm3 0.0-0.4 N BASOPHIL # (test code = BA#) 0.0 K/mm3 0.0-0.1 N NUCLEATED RBC # (test code = 0.0 K/mm3 0.0-0.1 N NRBC#) MANUAL DIFF REQUIRED (test code NO DIFF/SCN CRITERIA = MDIFF) GLUCOSE BEDSIDE [id number] 21:15:00 Test Item Value Reference Range Interpretation Comments GLUCOSE BEDSIDE TESTING (test code 224 mg/dL 70-110 H = GLUBED) GLUCOSE BEDSIDE [id number] 16:30:00 Test Item Value Reference Range Interpretation Comments GLUCOSE BEDSIDE TESTING (test code 255 mg/dL 70-110 H = GLUBED) GLUCOSE BEDSIDE [id number] 11:42:00 Test Item Value Reference Range Interpretation Comments GLUCOSE BEDSIDE TESTING (test code 402 mg/dL 70-110 H = GLUBED) BASIC METABOLIC [id number] 10:46:00 Test Item Value Reference Range Interpretation Comments SODIUM (test code = NA) 135 mmol/L 134-147 N POTASSIUM (test code = K) 3.6 mmol/L 3.4-5.0 N CHLORIDE (test code = CL) 98 mmol/L 100-108 L CARBON DIOXIDE (test code = CO2) 31 mmol/L 21-32 N ANION GAP (test code = GAP) 6.0 GAP calc 4.0-15.0 N GLUCOSE (test code = GLU) 405 MG/DL 70-110 H BLOOD UREA NITROGEN (test code = 27 MG/DL 7-18 H BUN) GLOMERULAR FILTRATION RATE (test 59 estGFR >60 L code = GFR) CREATININE (test code = CREAT) 1.0 MG/DL 0.6-1.0 N CALCIUM (test code = CA) 8.6 MG/DL 8.5-10.1 N GLUCOSE BEDSIDE [id number] 07:58:00 Test Item Value Reference Range Interpretation Comments GLUCOSE BEDSIDE TESTING (test code 333 mg/dL 70-110 H = GLUBED) GLUCOSE BEDSIDE [id number] 21:32:00 Test Item Value Reference Range Interpretation Comments GLUCOSE BEDSIDE TESTING (test code 417 mg/dL 70-110 H = GLUBED) GLUCOSE BEDSIDE [id number] 18:48:00 Test Item Value Reference Range Interpretation Comments GLUCOSE BEDSIDE TESTING (test code 435 mg/dL 70-110 H = GLUBED) GLUCOSE BEDSIDE [id number] 16:42:00 Test Item Value Reference Range Interpretation Comments GLUCOSE BEDSIDE TESTING (test code 513 mg/dL 70-110 HH = GLUBED) GLUCOSE BEDSIDE [id number] 11:33:00 Test Item Value Reference Range Interpretation Comments GLUCOSE BEDSIDE TESTING (test code 448 mg/dL 70-110 H = GLUBED) GLUCOSE BEDSIDE [id number] 07:53:00 Test Item Value Reference Range Interpretation Comments GLUCOSE BEDSIDE TESTING (test code 411 mg/dL 70-110 H = GLUBED) BASIC METABOLIC [id number] 04:10:00 Test Item Value Reference Range Interpretation Comments SODIUM (test code = NA) 133 mmol/L 134-147 L POTASSIUM (test code = K) 3.8 mmol/L 3.4-5.0 N CHLORIDE (test code = CL) 97 mmol/L 100-108 L CARBON DIOXIDE (test code = CO2) 29 mmol/L 21-32 N ANION GAP (test code = GAP) 7.0 GAP calc 4.0-15.0 N GLUCOSE (test code = GLU) 401 MG/DL 70-110 H BLOOD UREA NITROGEN (test code = 21 MG/DL 7-18 H BUN) GLOMERULAR FILTRATION RATE (test 53 estGFR >60 L code = GFR) CREATININE (test code = CREAT) 1.1 MG/DL 0.6-1.0 H CALCIUM (test code = CA) 8.7 MG/DL 8.5-10.1 N CBC W/AUTO [id number] 03:58:00 Test Item Value Reference Range Interpretation Comments WHITE BLOOD CELL (test code = 9.2 K/mm3 3.5-11.0 N WBC) RED BLOOD CELL (test code = 4.70 M/mm3 4.70-6.10 N RBC) HEMOGLOBIN (test code = HGB) 13.3 G/DL 10.4-14.9 N HEMATOCRIT (test code = HCT) 43.8 % 31.5-44.1 N MEAN CELL VOLUME (test code = 93.2 Fl 84.5-98.6 N MCV) MEAN CELL HGB (test code = MCH) 28.3 pg 27.0-34.2 N MEAN CELL HGB CONCETRATION 30.4 G/DL 31.5-34.0 L (test code = MCHC) RED CELL DISTRIBUTION WIDTH 16.8 SD 11.5-14.5 H (test code = RDW) PLATELET COUNT (test code = 176 K/mm3 150-450 N PLT) MEAN PLATELET VOLUME (test code 9.70 fL 7.0-10.5 N = MPV) NEUTROPHIL % (test code = NT%) 89.9 % 40-76 H LYMPHOCYTE % (test code = LY%) 7.6 % 20.5-51.1 L MONOCYTE % (test code = MO%) 1.4 % 1.7-9.3 L EOSINOPHIL % (test code = EO%) 0.0 % 0.0-6.0 N BASOPHIL % (test code = BA%) 0.3 % 0.0-2.0 N NUCLEATED RBC % (test code = 0.0 /100WBC% 0.0-1.0 N NRBC%) NEUTROPHIL # (test code = NT#) 8.2 K/mm3 1.8-7.6 H IMMATURE GRANULOCYTE # (test 0.07 x10 3/uL 0.00-0.03 H code = IG#) LYMPHOCYTE # (test code = LY#) 0.7 K/mm3 0.6-3.2 N MONOCYTE # (test code = MO#) 0.1 K/mm3 0.3-1.1 L EOSINOPHIL # (test code = EO#) 0.0 K/mm3 0.0-0.4 N BASOPHIL # (test code = BA#) 0.0 K/mm3 0.0-0.1 N NUCLEATED RBC # (test code = 0.0 K/mm3 0.0-0.1 N NRBC#) MANUAL DIFF REQUIRED (test code NO DIFF/SCN CRITERIA = MDIFF) GLUCOSE BEDSIDE [id number] 22:08:00 Test Item Value Reference Range Interpretation Comments GLUCOSE BEDSIDE TESTING (test code 266 mg/dL 70-110 H = GLUBED) GLUCOSE BEDSIDE [id number] 22:07:00 Test Item Value Reference Range Interpretation Comments GLUCOSE BEDSIDE TESTING (test code 362 mg/dL 70-110 H = GLUBED) GLUCOSE BEDSIDE [id number] 16:43:00 Test Item Value Reference Range Interpretation Comments GLUCOSE BEDSIDE TESTING (test code 187 mg/dL 70-110 H = GLUBED) - DUP VEIN UNI [id number] 12:41:00 Name: AILYN COBIAN [place] : 1955 Age/S: 64 / F [address] [address] Unit #: [id number] Loc: [place] [address] Phys: Anatoly River MD Acct: [id number] Dis Date: Status: ADM IN PHONE #: [phone] Exam Date: 08/23/2019 1222 FAX #: Reason: RULE OUT DVT EXAMS: CPT: [id number] [id number] Doppler venous ultrasound right lower extremity History: RULE OUT DVT Comparison: None at this time Location: R16 Doppler venous ultrasound of the deep venous system of the right lower extremity, including grayscale real-time B-mode imaging with Duplex color flow and spectral analysis, was performed from the common femoral vein to the popliteal vein. Portions of the calf veins were also identified. The visualized venous system demonstrates flow. There is partial compression involving the right common femoral vein, superficial femoral vein and popliteal vein. IMPRESSION: There is partial compression involving the right common femoral vein, right superficial femoral vein and right popliteal vein. 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 No occlusive thrombus is identified. at 1241 Reported and signed by: Bryan Green M.D. CC: Anatoly River MD; Disha Duncan MD Technologist: Fanny Eid Trnscb Date/Time: 08/23/2019 (1241) GregPMT PAGE 1 Signed Report Name: AILYN COBIAN [place] : 1955 Age/S: 64 / F [address] [address] Unit #: [id number] Loc: [place] [address] Phys: Anatoly River MD Acct: [id number] Dis Date: Status: ADM IN PHONE #: [phone] Exam Date: 08/23/2019 1222 FAX #: Reason: RULE OUT DVT EXAMS: CPT: [id number] [id number] <Continued> Orig Print D/T: S: 08/23/2019 (6766) Probe: PAGE 2 Signed ReportGLUCOSE BEDSIDE [id number] 11:32:00 Test Item Value Reference Range Interpretation Comments GLUCOSE BEDSIDE TESTING (test code 229 mg/dL 70-110 H = GLUBED) GLUCOSE BEDSIDE [id number] 08:03:00 Test Item Value Reference Range Interpretation Comments GLUCOSE BEDSIDE TESTING (test code 166 mg/dL 70-110 H = GLUBED) BASIC METABOLIC [id number] 06:43:00 Test Item Value Reference Range Interpretation Comments SODIUM (test code = NA) 136 mmol/L 134-147 N POTASSIUM (test code = 3.9 mmol/L 3.4-5.0 N K) CHLORIDE (test code = 100 mmol/L 100-108 N CL) CARBON DIOXIDE (test 31 mmol/L 21-32 N code = CO2) ANION GAP (test code = 5.0 GAP calc 4.0-15.0 N GAP) GLUCOSE (test code = 191 MG/DL 70-110 H GLU) BLOOD UREA NITROGEN 17 MG/DL 7-18 N (test code = BUN) GLOMERULAR FILTRATION >=60 max estimate >60 RATE (test code = GFR) estGFR CREATININE (test code = 0.9 MG/DL 0.6-1.0 N CREAT) CALCIUM (test code = CA) 8.3 MG/DL 8.5-10.1 L CBC W/AUTO [id number] 06:35:00 Test Item Value Reference Range Interpretation Comments WHITE BLOOD CELL (test code = 10.8 K/mm3 3.5-11.0 N WBC) RED BLOOD CELL (test code = 4.65 M/mm3 4.70-6.10 L RBC) HEMOGLOBIN (test code = HGB) 13.1 G/DL 10.4-14.9 N HEMATOCRIT (test code = HCT) 43.6 % 31.5-44.1 N MEAN CELL VOLUME (test code = 93.8 Fl 84.5-98.6 N MCV) MEAN CELL HGB (test code = MCH) 28.2 pg 27.0-34.2 N MEAN CELL HGB CONCETRATION 30.0 G/DL 31.5-34.0 L (test code = MCHC) RED CELL DISTRIBUTION WIDTH 16.7 SD 11.5-14.5 H (test code = RDW) PLATELET COUNT (test code = 272 K/mm3 150-450 N PLT) MEAN PLATELET VOLUME (test code 9.30 fL 7.0-10.5 N = MPV) NEUTROPHIL % (test code = NT%) 77.5 % 40-76 H LYMPHOCYTE % (test code = LY%) 10.6 % 20.5-51.1 L MONOCYTE % (test code = MO%) 9.7 % 1.7-9.3 H EOSINOPHIL % (test code = EO%) 1.2 % 0.0-6.0 N BASOPHIL % (test code = BA%) 0.6 % 0.0-2.0 N NUCLEATED RBC % (test code = 0.0 /100WBC% 0.0-1.0 N NRBC%) NEUTROPHIL # (test code = NT#) 8.4 K/mm3 1.8-7.6 H IMMATURE GRANULOCYTE # (test 0.04 x10 3/uL 0.00-0.03 H code = IG#) LYMPHOCYTE # (test code = LY#) 1.1 K/mm3 0.6-3.2 N MONOCYTE # (test code = MO#) 1.0 K/mm3 0.3-1.1 N EOSINOPHIL # (test code = EO#) 0.1 K/mm3 0.0-0.4 N BASOPHIL # (test code = BA#) 0.1 K/mm3 0.0-0.1 N NUCLEATED RBC # (test code = 0.0 K/mm3 0.0-0.1 N NRBC#) MANUAL DIFF REQUIRED (test code NO DIFF/SCN CRITERIA = MDIFF) GLUCOSE BEDSIDE [id number] 00:48:00 Test Item Value Reference Range Interpretation Comments GLUCOSE BEDSIDE TESTING (test code 252 mg/dL 70-110 H = GLUBED) GLUCOSE BEDSIDE [id number] 16:23:00 Test Item Value Reference Range Interpretation Comments GLUCOSE BEDSIDE TESTING (test code 147 mg/dL 70-110 H = GLUBED) GLUCOSE BEDSIDE [id number] 12:16:00 Test Item Value Reference Range Interpretation Comments GLUCOSE BEDSIDE TESTING (test code 286 mg/dL 70-110 H = GLUBED) GLUCOSE BEDSIDE [id number] 07:57:00 Test Item Value Reference Range Interpretation Comments GLUCOSE BEDSIDE TESTING (test code 197 mg/dL 70-110 H = GLUBED) BASIC METABOLIC [id number] 06:27:00 Test Item Value Reference Range Interpretation Comments SODIUM (test code = NA) 136 mmol/L 134-147 N POTASSIUM (test code = 3.6 mmol/L 3.4-5.0 N K) CHLORIDE (test code = 98 mmol/L 100-108 L CL) CARBON DIOXIDE (test 32 mmol/L 21-32 N code = CO2) ANION GAP (test code = 6.0 GAP calc 4.0-15.0 N GAP) GLUCOSE (test code = 254 MG/DL 70-110 H GLU) BLOOD UREA NITROGEN 15 MG/DL 7-18 N (test code = BUN) GLOMERULAR FILTRATION >=60 max estimate >60 RATE (test code = GFR) estGFR CREATININE (test code = 0.9 MG/DL 0.6-1.0 N CREAT) CALCIUM (test code = CA) 8.1 MG/DL 8.5-10.1 L CBC W/AUTO [id number] 06:23:00 Test Item Value Reference Range Interpretation Comments WHITE BLOOD CELL (test code = 9.3 K/mm3 3.5-11.0 N WBC) RED BLOOD CELL (test code = 4.59 M/mm3 4.70-6.10 L RBC) HEMOGLOBIN (test code = HGB) 12.6 G/DL 10.4-14.9 N HEMATOCRIT (test code = HCT) 42.2 % 31.5-44.1 N MEAN CELL VOLUME (test code = 91.9 Fl 84.5-98.6 N MCV) MEAN CELL HGB (test code = MCH) 27.5 pg 27.0-34.2 N MEAN CELL HGB CONCETRATION 29.9 G/DL 31.5-34.0 L (test code = MCHC) RED CELL DISTRIBUTION WIDTH 16.6 SD 11.5-14.5 H (test code = RDW) PLATELET COUNT (test code = 239 K/mm3 150-450 N PLT) MEAN PLATELET VOLUME (test code 9.50 fL 7.0-10.5 N = MPV) NEUTROPHIL % (test code = NT%) 70.2 % 40-76 N LYMPHOCYTE % (test code = LY%) 15.7 % 20.5-51.1 L MONOCYTE % (test code = MO%) 8.9 % 1.7-9.3 N EOSINOPHIL % (test code = EO%) 4.0 % 0.0-6.0 N BASOPHIL % (test code = BA%) 0.8 % 0.0-2.0 N NUCLEATED RBC % (test code = 0.0 /100WBC% 0.0-1.0 N NRBC%) NEUTROPHIL # (test code = NT#) 6.6 K/mm3 1.8-7.6 N IMMATURE GRANULOCYTE # (test 0.04 x10 3/uL 0.00-0.03 H code = IG#) LYMPHOCYTE # (test code = LY#) 1.5 K/mm3 0.6-3.2 N MONOCYTE # (test code = MO#) 0.8 K/mm3 0.3-1.1 N EOSINOPHIL # (test code = EO#) 0.4 K/mm3 0.0-0.4 N BASOPHIL # (test code = BA#) 0.1 K/mm3 0.0-0.1 N NUCLEATED RBC # (test code = 0.0 K/mm3 0.0-0.1 N NRBC#) MANUAL DIFF REQUIRED (test code NO DIFF/SCN CRITERIA = MDIFF) GLUCOSE BEDSIDE [id number] 22:45:00 Test Item Value Reference Range Interpretation Comments GLUCOSE BEDSIDE TESTING (test code 255 mg/dL 70-110 H = GLUBED) GLUCOSE BEDSIDE [id number] 16:53:00 Test Item Value Reference Range Interpretation Comments GLUCOSE BEDSIDE TESTING (test code 283 mg/dL 70-110 H = GLUBED) GLUCOSE BEDSIDE [id number] 12:20:00 Test Item Value Reference Range Interpretation Comments GLUCOSE BEDSIDE TESTING (test code 250 mg/dL 70-110 H = GLUBED) GLUCOSE BEDSIDE [id number] 10:22:00 Test Item Value Reference Range Interpretation Comments GLUCOSE BEDSIDE TESTING (test code 233 mg/dL 70-110 H = GLUBED) GLUCOSE BEDSIDE [id number] 07:57:00 Test Item Value Reference Range Interpretation Comments GLUCOSE BEDSIDE TESTING (test code 231 mg/dL 70-110 H = GLUBED) BASIC METABOLIC [id number] 06:22:00 Test Item Value Reference Range Interpretation Comments SODIUM (test code = NA) 134 mmol/L 134-147 N POTASSIUM (test code = 3.5 mmol/L 3.4-5.0 N K) CHLORIDE (test code = 98 mmol/L 100-108 L CL) CARBON DIOXIDE (test 30 mmol/L 21-32 N code = CO2) ANION GAP (test code = 6.0 GAP calc 4.0-15.0 N GAP) GLUCOSE (test code = 181 MG/DL 70-110 H GLU) BLOOD UREA NITROGEN 16 MG/DL 7-18 N (test code = BUN) GLOMERULAR FILTRATION >=60 max estimate >60 RATE (test code = GFR) estGFR CREATININE (test code = 0.9 MG/DL 0.6-1.0 N CREAT) CALCIUM (test code = CA) 8.1 MG/DL 8.5-10.1 L CBC W/AUTO [id number] 06:10:00 Test Item Value Reference Range Interpretation Comments WHITE BLOOD CELL (test code = 9.1 K/mm3 3.5-11.0 N WBC) RED BLOOD CELL (test code = 4.51 M/mm3 4.70-6.10 L RBC) HEMOGLOBIN (test code = HGB) 12.4 G/DL 10.4-14.9 N HEMATOCRIT (test code = HCT) 41.2 % 31.5-44.1 N MEAN CELL VOLUME (test code = 91.4 Fl 84.5-98.6 N MCV) MEAN CELL HGB (test code = MCH) 27.5 pg 27.0-34.2 N MEAN CELL HGB CONCETRATION 30.1 G/DL 31.5-34.0 L (test code = MCHC) RED CELL DISTRIBUTION WIDTH 16.3 SD 11.5-14.5 H (test code = RDW) PLATELET COUNT (test code = 233 K/mm3 150-450 N PLT) MEAN PLATELET VOLUME (test code 9.10 fL 7.0-10.5 N = MPV) NEUTROPHIL % (test code = NT%) 69.0 % 40-76 N LYMPHOCYTE % (test code = LY%) 15.7 % 20.5-51.1 L MONOCYTE % (test code = MO%) 9.2 % 1.7-9.3 N EOSINOPHIL % (test code = EO%) 5.0 % 0.0-6.0 N BASOPHIL % (test code = BA%) 0.8 % 0.0-2.0 N NUCLEATED RBC % (test code = 0.0 /100WBC% 0.0-1.0 N NRBC%) NEUTROPHIL # (test code = NT#) 6.3 K/mm3 1.8-7.6 N IMMATURE GRANULOCYTE # (test 0.03 x10 3/uL 0.00-0.03 N code = IG#) LYMPHOCYTE # (test code = LY#) 1.4 K/mm3 0.6-3.2 N MONOCYTE # (test code = MO#) 0.8 K/mm3 0.3-1.1 N EOSINOPHIL # (test code = EO#) 0.5 K/mm3 0.0-0.4 H BASOPHIL # (test code = BA#) 0.1 K/mm3 0.0-0.1 N NUCLEATED RBC # (test code = 0.0 K/mm3 0.0-0.1 N NRBC#) MANUAL DIFF REQUIRED (test code NO DIFF/SCN CRITERIA = MDIFF) GLUCOSE BEDSIDE [id number] 21:00:00 Test Item Value Reference Range Interpretation Comments GLUCOSE BEDSIDE TESTING (test code 313 mg/dL 70-110 H = GLUBED) GLUCOSE BEDSIDE [id number] 18:43:00 Test Item Value Reference Range Interpretation Comments GLUCOSE BEDSIDE TESTING (test code 396 mg/dL 70-110 H = GLUBED) GLUCOSE BEDSIDE [id number] 17:26:00 Test Item Value Reference Range Interpretation Comments GLUCOSE BEDSIDE TESTING (test code 410 mg/dL 70-110 H = GLUBED) GLUCOSE BEDSIDE [id number] 11:40:00 Test Item Value Reference Range Interpretation Comments GLUCOSE BEDSIDE TESTING (test code 354 mg/dL 70-110 H = GLUBED) - CT CHEST W/O [id number] 09:46:00 Name: MANGOAILYN [facility] : 1955 Age/S: 64 / F [address] [facility] Unit #: [id number] Loc: [place] [address] Phys: Anatoly River MD Acct: [id number] Dis Date: Status: ADM IN PHONE #: [phone] Exam Date: 08/20/2019 0951 FAX #: Reason: shortness of breath EXAMS: CPT: [id number] CT CHEST W/O CONTRAST 43426 HISTORY: Shortness of breath, history of heart failure, COPD. CT chest, unenhanced. Reformatted sagittal and coronal images. COMPARISON: None Automated exposure control, iterative reconstruction technique, and/or adjustment of mA and/or kV according to patient's size was utilized for optimum radiation dose reduction. No intravenous contrastwas administered. Significant pathology may be obscured. Thyroid tissue appearsto be intact. Some small, nonpathologic lymph nodes noted in the upper mediastinum. No obvious hilar adenopathy but limited detail due to lack of contrast. There is food/debris in the upper esophagus. Further correlation with dysphagia may be needed the more distal esophagus appears to be intact. No evidence of hiatal hernia. Heart size generouswith CABG changes. No pericardial fluid. No pleural effusion seen. Aortic diameter intact. The chest wall structures are symmetric. Axillary areas free of pathologic adenopathy. The lung window settings show1 mild COPD changes but no large bulla or mass evident. Narrowing of the distal trachea and tracheal bifurcation seen but this could be dueto breath holding artifact. This does occur in the area of the debris/food filled esophagus segment. No mass like densities. No infiltrates. There is a diffuse increased density in the lungs could indicate interstitial disease most likely interstitial edema. Bony structures intact. No bony destructive process. Moderate degenerative changes in the thoracic spine. IMPRESSION: Unusual appearance to the upper cervical esophagus to the level of the misa with food/debris like density in the esophagus. Further correlation with dysphagia may be needed. There is narrowing of the trachea and tracheal bifurcation in this region but possibly due to breath holding for the CT. PAGE 1 Signed Report (CONTINUED) Name: CHRISTO COBIAN : 1955 Age/S: 64 / F [address] [facility] Unit #: [id number] Loc: [place] [address] Phys: Anatoly River MD Acct: [id number] Dis Date: Status: ADM IN PHONE #: [phone] Exam Date: 08/20/2019 0910 FAX #: Reason: shortness of breath EXAMS: CPT: [id number] CT CHEST W/O CONTRAST 40474 <Continued> Cardiomegaly. Interstitial lung density and haziness may represent COPD changes. A superimposed mild degree of interstitial edema difficult to exclude. No effusion evident. No focal lungdensities for pneumonia. Location: U19 at 0946 Reported and signed by: Smith Smith M.D CC: Anatoly River MD; Disha Duncan MD Technologist:RT Topher(R)(CT) CTDI: DLP: Trnscb Date/Time: 08/20/2019 (0946) [email or web address] Orig Print D/T: S: 08/20/2019 (0949) PAGE 2 Signed ReportGLUCOSE BEDSIDE [id number] 09:40:00 Test Item Value Reference Range Interpretation Comments GLUCOSE BEDSIDE TESTING (test code 266 mg/dL 70-110 H = GLUBED) CBC W/AUTO [id number] 08:31:00 Test Item Value Reference Range Interpretation Comments WHITE BLOOD CELL (test 13.0 K/mm3 3.5-11.0 H code = WBC) RED BLOOD CELL (test 4.82 M/mm3 4.70-6.10 N code = RBC) HEMOGLOBIN (test code 12.8 G/DL 10.4-14.9 N = HGB) HEMATOCRIT (test code 44.4 % 31.5-44.1 H = HCT) MEAN CELL VOLUME (test 92.1 Fl 84.5-98.6 N code = MCV) MEAN CELL HGB (test 26.6 pg 27.0-34.2 L code = MCH) MEAN CELL HGB 28.8 G/DL 31.5-34.0 L CONCETRATION (test code = MCHC) RED CELL DISTRIBUTION 18.0 SD 11.5-14.5 H WIDTH (test code = RDW) PLATELET COUNT (test 204.0 K/mm3 150-450 N code = PLT) MEAN PLATELET VOLUME 9.30 fL 7.0-10.5 N (test code = MPV) NEUTROPHIL % (test 75.6 % 40-76 N code = NT%) LYMPHOCYTE % (test 12.3 % 20.5-51.1 L code = LY%) MONOCYTE % (test code 9.9 % 1.7-9.3 H = MO%) EOSINOPHIL % (test 2.0 % 0.0-6.0 N code = EO%) BASOPHIL % (test code 0.2 % 0.0-2.0 N = BA%) NEUTROPHIL # (test 9.85 K/mm3 1.8-7.6 H code = NT#) LYMPHOCYTE # (test 1.6 K/mm3 0.6-3.2 N code = LY#) MONOCYTE # (test code 1.3 K/mm3 0.3-1.1 H = MO#) EOSINOPHIL # (test 0.3 K/mm3 0.0-0.4 N code = EO#) BASOPHIL # (test code 0.0 K/mm3 0.0-0.1 N = BA#) MANUAL DIFF REQUIRED NO DIFF/SCN CRITERIA SLIDE R EVIEW (test code = MDIFF) CONSISTA NT WITH AUTO DIFFERENTIAL. CBC W/AUTO [id number] 08:31:00 Test Item Value Reference Range Interpretation Comments WHITE BLOOD CELL (test 13.0 K/mm3 3.5-11.0 H code = WBC) RED BLOOD CELL (test 4.82 M/mm3 4.70-6.10 N code = RBC) HEMOGLOBIN (test code 12.8 G/DL 10.4-14.9 N = HGB) HEMATOCRIT (test code 44.4 % 31.5-44.1 H = HCT) MEAN CELL VOLUME (test 92.1 Fl 84.5-98.6 N code = MCV) MEAN CELL HGB (test 26.6 pg 27.0-34.2 L code = MCH) MEAN CELL HGB 28.8 G/DL 31.5-34.0 L CONCETRATION (test code = MCHC) RED CELL DISTRIBUTION 18.0 SD 11.5-14.5 H WIDTH (test code = RDW) PLATELET COUNT (test 204.0 K/mm3 150-450 N code = PLT) MEAN PLATELET VOLUME 9.30 fL 7.0-10.5 N (test code = MPV) NEUTROPHIL % (test 75.6 % 40-76 N code = NT%) LYMPHOCYTE % (test 12.3 % 20.5-51.1 L code = LY%) MONOCYTE % (test code 9.9 % 1.7-9.3 H = MO%) EOSINOPHIL % (test 2.0 % 0.0-6.0 N code = EO%) BASOPHIL % (test code 0.2 % 0.0-2.0 N = BA%) NEUTROPHIL # (test 9.85 K/mm3 1.8-7.6 H code = NT#) LYMPHOCYTE # (test 1.6 K/mm3 0.6-3.2 N code = LY#) MONOCYTE # (test code 1.3 K/mm3 0.3-1.1 H = MO#) EOSINOPHIL # (test 0.3 K/mm3 0.0-0.4 N code = EO#) BASOPHIL # (test code 0.0 K/mm3 0.0-0.1 N = BA#) MANUAL DIFF REQUIRED NO DIFF/SCN CRITERIA SLIDE R EVIEW (test code = MDIFF) CONSISTA NT WITH AUTO DIFFERENTIAL. RBC [id number] 08:31:00 Test Item Value Reference Range Interpretation Comments POLYCHROMASIA (test code = TRACE ON SCAN NONE POLC) ANISOCYTOSIS (test code = TRACE NONE ANISO) MACROCYTOSIS (test code = TRACE ON SCAN NONE MACR) STOMATOCYTES (test code = TRACE ON SCAN NONE STO) PLATELET ESTIMATE (test ADEQUATE THOUSAND ADEQUATE code = PLTEST) PLATELET MORPHOLOGY (test NORMAL code = PLTMORPH) CBC W/AUTO [id number] 08:31:00 Test Item Value Reference Range Interpretation Comments WHITE BLOOD CELL (test 13.0 K/mm3 3.5-11.0 H code = WBC) RED BLOOD CELL (test 4.82 M/mm3 4.70-6.10 N code = RBC) HEMOGLOBIN (test code 12.8 G/DL 10.4-14.9 N = HGB) HEMATOCRIT (test code 44.4 % 31.5-44.1 H = HCT) MEAN CELL VOLUME (test 92.1 Fl 84.5-98.6 N code = MCV) MEAN CELL HGB (test 26.6 pg 27.0-34.2 L code = MCH) MEAN CELL HGB 28.8 G/DL 31.5-34.0 L CONCETRATION (test code = MCHC) RED CELL DISTRIBUTION 18.0 SD 11.5-14.5 H WIDTH (test code = RDW) PLATELET COUNT (test 204.0 K/mm3 150-450 N code = PLT) MEAN PLATELET VOLUME 9.30 fL 7.0-10.5 N (test code = MPV) NEUTROPHIL % (test 75.6 % 40-76 N code = NT%) LYMPHOCYTE % (test 12.3 % 20.5-51.1 L code = LY%) MONOCYTE % (test code 9.9 % 1.7-9.3 H = MO%) EOSINOPHIL % (test 2.0 % 0.0-6.0 N code = EO%) BASOPHIL % (test code 0.2 % 0.0-2.0 N = BA%) NEUTROPHIL # (test 9.85 K/mm3 1.8-7.6 H code = NT#) LYMPHOCYTE # (test 1.6 K/mm3 0.6-3.2 N code = LY#) MONOCYTE # (test code 1.3 K/mm3 0.3-1.1 H = MO#) EOSINOPHIL # (test 0.3 K/mm3 0.0-0.4 N code = EO#) BASOPHIL # (test code 0.0 K/mm3 0.0-0.1 N = BA#) MANUAL DIFF REQUIRED NO DIFF/SCN CRITERIA SLIDE R EVIEW (test code = MDIFF) CONSISTA NT WITH AUTO DIFFERENTIAL. BASIC METABOLIC [id number] 06:57:00 Test Item Value Reference Range Interpretation Comments SODIUM (test code = NA) 136 mmol/L 134-147 N POTASSIUM (test code = K) 4.2 mmol/L 3.4-5.0 N CHLORIDE (test code = CL) 97 mmol/L 100-108 L CARBON DIOXIDE (test code = CO2) 33 mmol/L 21-32 H ANION GAP (test code = GAP) 6.0 GAP calc 4.0-15.0 N GLUCOSE (test code = GLU) 250 MG/DL 70-110 H BLOOD UREA NITROGEN (test code = 17 MG/DL 7-18 N BUN) GLOMERULAR FILTRATION RATE (test 59 estGFR >60 L code = GFR) CREATININE (test code = CREAT) 1.0 MG/DL 0.6-1.0 N CALCIUM (test code = CA) 8.4 MG/DL 8.5-10.1 L CBC W/AUTO [id number] 06:51:00 Test Item Value Reference Range Interpretation Comments WHITE BLOOD CELL (test code = 13.0 K/mm3 3.5-11.0 H WBC) RED BLOOD CELL (test code = RBC) 4.82 M/mm3 4.70-6.10 N HEMOGLOBIN (test code = HGB) 12.8 G/DL 10.4-14.9 N HEMATOCRIT (test code = HCT) 44.4 % 31.5-44.1 H MEAN CELL VOLUME (test code = 92.1 Fl 84.5-98.6 N MCV) MEAN CELL HGB (test code = MCH) 26.6 pg 27.0-34.2 L MEAN CELL HGB CONCETRATION (test 28.8 G/DL 31.5-34.0 L code = MCHC) RED CELL DISTRIBUTION WIDTH (test 18.0 SD 11.5-14.5 H code = RDW) PLATELET COUNT (test code = PLT) 204.0 K/mm3 150-450 N MEAN PLATELET VOLUME (test code = 9.30 fL 7.0-10.5 N MPV) NEUTROPHIL % (test code = NT%) % 40-76 N LYMPHOCYTE % (test code = LY%) % 20.5-51.1 L MONOCYTE % (test code = MO%) % 1.7-9.3 H EOSINOPHIL % (test code = EO%) % 0.0-6.0 N BASOPHIL % (test code = BA%) % 0.0-2.0 N NEUTROPHIL # (test code = NT#) K/mm3 1.8-7.6 H LYMPHOCYTE # (test code = LY#) K/mm3 0.6-3.2 N MONOCYTE # (test code = MO#) K/mm3 0.3-1.1 H EOSINOPHIL # (test code = EO#) K/mm3 0.0-0.4 N BASOPHIL # (test code = BA#) K/mm3 0.0-0.1 N MANUAL DIFF REQUIRED (test code = DIFF/SCN CRITERIA MDIFF) GLUCOSE BEDSIDE [id number] 20:28:00 Test Item Value Reference Range Interpretation Comments GLUCOSE BEDSIDE TESTING (test code 245 mg/dL 70-110 H = GLUBED) GLUCOSE BEDSIDE [id number] 16:33:00 Test Item Value Reference Range Interpretation Comments GLUCOSE BEDSIDE TESTING (test code 217 mg/dL 70-110 H = GLUBED) GLUCOSE BEDSIDE [id number] 11:59:00 Test Item Value Reference Range Interpretation Comments GLUCOSE BEDSIDE TESTING (test code 315 mg/dL 70-110 H = GLUBED) GLUCOSE BEDSIDE [id number] 07:56:00 Test Item Value Reference Range Interpretation Comments GLUCOSE BEDSIDE TESTING (test code 383 mg/dL 70-110 H = GLUBED) Novel Coronavirus 07:44:00 Test Item Value Reference Range Interpretation Comments Novel Coronavirus Negative Negative Positive r esults are 2019 Inhouse (test indicativ e of the presence code = [id number]) ofSARS-CoV -2 RNA, clinical correlation wit h patient historyand othe r diagnostic info rmation is necessary to determinepatien t infection status. Positiv e results do not rule out bacterial infection or co -infection with other viru ses. Negative result s do not preclude SARS-C oV-2 infection andsh ould not be used as the bereket e basis for patient managementdecis ions. Negative result s must be combined with otherclinical observations, p atient history, and epidemiological information . Detection of SARS-CoV-2 RNA may be affe cted bysample collec tion methods, storag e conditions, and /or stageof infection. Margie l RNA mutations, vacc inations, antiviraltherap eutics, antibiotics, chemotherapeuti c orimmunosuppres philipp drugs have not been e valuated for effectson d etection. Results are for the identification of SARS-CoV-2 RNA usingthe Ferrell M2000 Sy stem under the FDA Emergen cy UseAuthorizatio n. The testing is perf ormed by mj mello in the procedures for the Ferrell M2000 molecular diagnostic SARS-CoV-2 assa y in vitro. Testing Criteria: Shortness of BreathNovel Coronavirus 07:44:00 Test Item Value Reference Range Interpretation Comments Novel Coronavirus Negative Negative Positive r esults are 2019 Inhouse (test indicativ e of the presence code = [id number]) ofSARS-CoV -2 RNA, clinical correlation wit h patient historyand othe r diagnostic info rmation is necessary to determinepatien t infection status. Positiv e results do not rule out bacterial infection or co -infection with other viru ses. Negative result s do not preclude SARS-C oV-2 infection andsh ould not be used as the bereket e basis for patient managementdecis ions. Negative result s must be combined with otherclinical observations, p atient history, and epidemiological information . Detection of SARS-CoV-2 RNA may be affe cted bysample collec tion methods, storag e conditions, and /or stageof infection. Margie l RNA mutations, vacc inations, antiviraltherap eutics, antibiotics, chemotherapeuti c orimmunosuppres philipp drugs have not been e valuated for effectson d etection. Results are for the identification of SARS-CoV-2 RNA usingthe [employer] M2000 Sy stem under the FDA Emergen cy UseAuthorizatio n. The testing is perf ormed by personneltraneetu d in the procedures for the [employer] M2000 molecular diagnostic SARS-CoV-2 assa y in vitro. Testing Criteria: Shortness of BreathCBC W/AUTO [id number] 07:13:00 Test Item Value Reference Range Interpretation Comments WHITE BLOOD CELL (test 12.3 K/mm3 3.5-11.0 H code = WBC) RED BLOOD CELL (test 4.55 M/mm3 4.70-6.10 L code = RBC) HEMOGLOBIN (test code 12.1 G/DL 10.4-14.9 N = HGB) HEMATOCRIT (test code 42.0 % 31.5-44.1 N = HCT) MEAN CELL VOLUME (test 92.3 Fl 84.5-98.6 N code = MCV) MEAN CELL HGB (test 26.6 pg 27.0-34.2 L code = MCH) MEAN CELL HGB 28.8 G/DL 31.5-34.0 L CONCETRATION (test code = MCHC) RED CELL DISTRIBUTION 17.3 SD 11.5-14.5 H WIDTH (test code = RDW) PLATELET COUNT (test 215.0 K/mm3 150-450 N code = PLT) MEAN PLATELET VOLUME 9.50 fL 7.0-10.5 N (test code = MPV) NEUTROPHIL % (test 79.7 % 40-76 H code = NT%) LYMPHOCYTE % (test 10.0 % 20.5-51.1 L code = LY%) MONOCYTE % (test code 8.1 % 1.7-9.3 N = MO%) EOSINOPHIL % (test 2.0 % 0.0-6.0 N code = EO%) BASOPHIL % (test code 0.2 % 0.0-2.0 N = BA%) NEUTROPHIL # (test 9.78 K/mm3 1.8-7.6 H code = NT#) LYMPHOCYTE # (test 1.2 K/mm3 0.6-3.2 N code = LY#) MONOCYTE # (test code 1.0 K/mm3 0.3-1.1 N = MO#) EOSINOPHIL # (test 0.2 K/mm3 0.0-0.4 N code = EO#) BASOPHIL # (test code 0.0 K/mm3 0.0-0.1 N = BA#) MANUAL DIFF REQUIRED NO DIFF/SCN CRITERIA SLIDE R EVIEW (test code = MDIFF) CONSISTA NT WITH AUTO DIFFERENTIAL. CBC W/AUTO [id number] 06:49:00 Test Item Value Reference Range Interpretation Comments WHITE BLOOD CELL (test code = 12.3 K/mm3 3.5-11.0 H WBC) RED BLOOD CELL (test code = RBC) 4.55 M/mm3 4.70-6.10 L HEMOGLOBIN (test code = HGB) 12.1 G/DL 10.4-14.9 N HEMATOCRIT (test code = HCT) 42.0 % 31.5-44.1 N MEAN CELL VOLUME (test code = 92.3 Fl 84.5-98.6 N MCV) MEAN CELL HGB (test code = MCH) 26.6 pg 27.0-34.2 L MEAN CELL HGB CONCETRATION (test 28.8 G/DL 31.5-34.0 L code = MCHC) RED CELL DISTRIBUTION WIDTH (test 17.3 SD 11.5-14.5 H code = RDW) PLATELET COUNT (test code = PLT) 215.0 K/mm3 150-450 N MEAN PLATELET VOLUME (test code = 9.50 fL 7.0-10.5 N MPV) NEUTROPHIL % (test code = NT%) % 40-76 H LYMPHOCYTE % (test code = LY%) % 20.5-51.1 L MONOCYTE % (test code = MO%) % 1.7-9.3 N EOSINOPHIL % (test code = EO%) % 0.0-6.0 N BASOPHIL % (test code = BA%) % 0.0-2.0 N NEUTROPHIL # (test code = NT#) K/mm3 1.8-7.6 H LYMPHOCYTE # (test code = LY#) K/mm3 0.6-3.2 N MONOCYTE # (test code = MO#) K/mm3 0.3-1.1 N EOSINOPHIL # (test code = EO#) K/mm3 0.0-0.4 N BASOPHIL # (test code = BA#) K/mm3 0.0-0.1 N MANUAL DIFF REQUIRED (test code = DIFF/SCN CRITERIA MDIFF) BASIC METABOLIC [id number] 06:46:00 Test Item Value Reference Range Interpretation Comments SODIUM (test code = NA) 135 mmol/L 134-147 N POTASSIUM (test code = K) 4.0 mmol/L 3.4-5.0 N CHLORIDE (test code = CL) 100 mmol/L 100-108 N CARBON DIOXIDE (test code = CO2) 31 mmol/L 21-32 N ANION GAP (test code = GAP) 4.0 GAP calc 4.0-15.0 N GLUCOSE (test code = GLU) 404 MG/DL 70-110 H BLOOD UREA NITROGEN (test code = 21 MG/DL 7-18 H BUN) GLOMERULAR FILTRATION RATE (test 53 estGFR >60 L code = GFR) CREATININE (test code = CREAT) 1.1 MG/DL 0.6-1.0 H CALCIUM (test code = CA) 7.9 MG/DL 8.5-10.1 L GLUCOSE BEDSIDE [id number] 20:12:00 Test Item Value Reference Range Interpretation Comments GLUCOSE BEDSIDE TESTING (test code 221 mg/dL 70-110 H = GLUBED) GLUCOSE BEDSIDE [id number] 16:43:00 Test Item Value Reference Range Interpretation Comments GLUCOSE BEDSIDE TESTING (test code 288 mg/dL 70-110 H = GLUBED) [id number] 16:21:00 Test Item Value Reference Range Interpretation Comments TROPONIN-I (test < 0.015 NG/ML 0.000-0.045 N Negative: </= 0.045 code = TROPI) Positive: >/= 0.046 Correlation wit h serial results, other cardiac markers, and cl inical findings is nec essary to determine the c linical significance of this result. Quantit ative results using d ifferent methodologies s hould not be compared to one another as nume rical results may valerie yby method. Completed by Nursing: NOGLUCOSE BEDSIDE [id number] 12:08:00 Test Item Value Reference Range Interpretation Comments GLUCOSE BEDSIDE TESTING (test code 200 mg/dL 70-110 H = GLUBED) GLUCOSE BEDSIDE [id number] 08:06:00 Test Item Value Reference Range Interpretation Comments GLUCOSE BEDSIDE TESTING (test code 186 mg/dL 70-110 H = GLUBED) COMPREHENSIVE METABOLIC [id number] 07:03:00 Test Item Value Reference Range Interpretation Comments SODIUM (test code = NA) 136 mmol/L 134-147 N POTASSIUM (test code = 3.6 mmol/L 3.4-5.0 N K) CHLORIDE (test code = 99 mmol/L 100-108 L CL) CARBON DIOXIDE (test 31 mmol/L 21-32 N code = CO2) ANION GAP (test code = 6.0 GAP calc 4.0-15.0 N GAP) GLUCOSE (test code = 203 MG/DL 70-110 H GLU) BLOOD UREA NITROGEN 15 MG/DL 7-18 N (test code = BUN) GLOMERULAR FILTRATION >=60 max estimate >60 RATE (test code = GFR) estGFR CREATININE (test code = 1.0 MG/DL 0.6-1.0 N CREAT) TOTAL PROTEIN (test code 7.0 G/DL 6.4-8.2 N = PROT) ALBUMIN (test code = 3.3 G/DL 3.4-5.0 L ALB) GLOBULIN (test code = 3.7 GM/dL GLOB) ALBUMIN/GLOBULIN RATIO 0.9 RATIO 1.2-2.2 L (test code = A/G) CALCIUM (test code = CA) 8.1 MG/DL 8.5-10.1 L BILIRUBIN TOTAL (test 1.40 MG/DL 0.2-1.2 H code = BILT) SGOT/AST (test code = 31 Unit/L 15-37 N AST) SGPT/ALT (test code = 25 Unit/L 12-78 N ALT) ALKALINE PHOSPHATASE 136 Unit/L 45-117 H TOTAL (test code = ALKP) [id number] 07:03:00 Test Item Value Reference Range Interpretation Comments MAGNESIUM (test code = MAG) 1.9 MG/DL 1.8-2.4 N CBC W/AUTO [id number] 06:35:00 Test Item Value Reference Range Interpretation Comments WHITE BLOOD CELL (test code = 13.2 K/mm3 3.5-11.0 H WBC) RED BLOOD CELL (test code = RBC) 4.75 M/mm3 4.70-6.10 N HEMOGLOBIN (test code = HGB) 12.9 G/DL 10.4-14.9 N HEMATOCRIT (test code = HCT) 44.3 % 31.5-44.1 H MEAN CELL VOLUME (test code = 93.3 Fl 84.5-98.6 N MCV) MEAN CELL HGB (test code = MCH) 27.2 pg 27.0-34.2 N MEAN CELL HGB CONCETRATION (test 29.1 G/DL 31.5-34.0 L code = MCHC) RED CELL DISTRIBUTION WIDTH (test 19.0 SD 11.5-14.5 H code = RDW) PLATELET COUNT (test code = PLT) 209.0 K/mm3 150-450 N MEAN PLATELET VOLUME (test code = 9.50 fL 7.0-10.5 N MPV) NEUTROPHIL % (test code = NT%) 81.9 % 40-76 H LYMPHOCYTE % (test code = LY%) 8.3 % 20.5-51.1 L MONOCYTE % (test code = MO%) 8.1 % 1.7-9.3 N EOSINOPHIL % (test code = EO%) 1.5 % 0.0-6.0 N BASOPHIL % (test code = BA%) 0.2 % 0.0-2.0 N NEUTROPHIL # (test code = NT#) 10.83 K/mm3 1.8-7.6 H LYMPHOCYTE # (test code = LY#) 1.1 K/mm3 0.6-3.2 N MONOCYTE # (test code = MO#) 1.1 K/mm3 0.3-1.1 N EOSINOPHIL # (test code = EO#) 0.2 K/mm3 0.0-0.4 N BASOPHIL # (test code = BA#) 0.0 K/mm3 0.0-0.1 N MANUAL DIFF REQUIRED (test code = NO DIFF/SCN CRITERIA MDIFF) GLUCOSE BEDSIDE [id number] 19:53:00 Test Item Value Reference Range Interpretation Comments GLUCOSE BEDSIDE TESTING (test code 303 mg/dL 70-110 H = GLUBED) GLUCOSE BEDSIDE [id number] 17:11:00 Test Item Value Reference Range Interpretation Comments GLUCOSE BEDSIDE TESTING (test code 233 mg/dL 70-110 H = GLUBED)
--- NOTE | 2019-11-23 14:18 | RAD REPORT ---
EXAM DESCRIPTION: RAD - Chest Single View - 11/23/2019 2:06 pm CLINICAL HISTORY: DYSPNEA COMPARISON: Portable July 14 and July 04 TECHNIQUE: AP portable chest image was obtained 11/23/2019 2:06 pm. FINDINGS: No peripheral mass or consolidation. Cardiomegaly is present with mild vascular engorgemen t. Interstitial pattern is prominent in part due to shallow inspiration and large body habitus. Trach ea is midline. Sternotomy wires are in place. No measurable pleural effusion and no pneumothorax. No acute bony abnormality seen. No acute aortic findings suspected. IMPRESSION: Heart, vasculature and lung markings are all prominent. No focal mass or consolidation. Chest findings suggest a mild failure or volume overload. However, findings are very similar to the c omparison studies.
[2019-11-23 14:58] LABS: Absolute Lymphocytes (CBC) 1.1 K/uL (0.7-4.9); Basophils % 0.9 % (0-1.3); Hematocrit 36.8 % (36.0-45.0); Lymphocytes % 14.9 % (15.3-44.8); MPV 8.5 fL (7.6-11.3); RBC Red Blood Cell Count 4.28 M/uL (3.86-4.86)
[2019-11-23] MEDS ORDERED: FUROSEMIDE 40 MG/4 ML VIAL ONE ×2 (14:59→16:27)
[2019-11-23 15:15] LABS: BUN Blood Urea Nitrogen 23 mg/dL (7-18); Bicarbonate 31 mmol/L (21-32); Glucose Level 120 mg/dL (74-106); NT PRO-BNP 1707 pg/mL (<125); Potassium 3.7 mmol/L (3.5-5.1); Sodium Level 140 mmol/L (136-145); Troponin (Emerg Dept Use Only) < 0.02 ng/mL (0.0-0.045)
--- NOTE | 2019-11-23 16:12 | EDPHYS ---
Physician Documentation [facility] Name: Kandice Elizabeth Age: 64 yrs Sex: Female : 1955 Arrival Date: 11/23/2019 Time: 13:03 Bed 16 Private MD: ED Physician Shaan Mukherjee HPI: 11/22 14:28 This 64 yrs old Female presents to ER via EMS with complaints of Shortness Of rn Breath. 14:28 The patient has shortness of breath with light activity. Onset: The symptoms/episode rn began/occurred at an unknown time. The patient's shortness of breath is aggravated by exertion, light activity. Severity of symptoms: At their worst the symptoms were mild in the emergency department the symptoms are unchanged. The patient has experienced similar episodes in the past. Recently admitted and discharged from [facility] for dyspnea, reports felt better, now worse again, reports weeks of dyspnea, orthopnea, not sure if CHF or her asthma, no fever. . Historical: - Allergies: 13:50 No Known Allergies; jr10 - PMHx: 13:33 Atrial Fib; Brain bleed; CHF; COPD; Diabetes - IDDM; Hypertension; iw - PSHx: 13:33 bypass surgery; iw - Immunization history:: Adult Immunizations up to date. - Social history:: Smoking status: Patient denies any tobacco usage or history of. - Family history:: not pertinent. - Hospitalizations: : No recent hospitalization is reported. ROS: 14:28 Constitutional: Negative for fever, chills, and weight loss, Eyes: Negative for injury, rn pain, redness, and discharge, Cardiovascular: Negative for chest pain, palpitations, + edema Respiratory: + sob Abdomen/GI: Negative for abdominal pain, nausea, vomiting, diarrhea, and constipation, MS/Extremity: Negative for injury and deformity, Skin: Negative for injury, rash, and discoloration, Neuro: Negative for headache, weakness, numbness, tingling, and seizure. Exam: 14:28 Constitutional: Overweight patient, + mild tachypnea Head/Face: Normocephalic, rn atraumatic. ENT: no Stridor Cardiovascular: Regular rate and rhythm. No pulse deficits. Respiratory: + mild tachypnea, no retractions Abdomen/GI: soft, non-tender MS/ Extremity: Pulses equal, no cyanosis. Neurovascular intact. Full, normal range of motion. Equal circumference. Neuro: Awake and alert, GCS 15 Vital Signs: 13:49 BP 120 / 76; Pulse 86; Resp 26; Pulse Ox 100% on R/A; Pain 0/10; jr10 14:57 BP 106 / 72; Pulse 95; Resp 23; Pulse Ox 100% on R/A; jr10 16:30 BP 124 / 88; Pulse 85; Resp 19; Pulse Ox 100% on R/A; Pain 0/10; jr10 16:49 Temp 98.2(TE); jr10 MDM: 13:17 Patient medically screened. rn 16:09 Differential diagnosis: CHF exacerbation, Chronic Obstructive Pulmonary Disease rn pneumonia, Pneumothorax pulmonary edema. Data reviewed: vital signs, nurses notes, lab test result(s), EKG, radiologic studies, plain films, and as a result, I will discharge patient. Counseling: I had a detailed discussion with the patient and/or guardian regarding: the historical points, exam findings, and any diagnostic results supporting the discharge/admit diagnosis, lab results, radiology results, the need for outpatient follow up, to return to the emergency department if symptoms worsen or persist or if there are any questions or concerns that arise at home. Response to treatment: the patient's symptoms have markedly improved after treatment, and as a result, I will discharge patient. Special discussion: I discussed with the patient/guardian in detail that at this point there is no indication for admission to the hospital. It is understood, however, that if the symptoms persist or worsen the patient needs to return immediately for re-evaluation. ED course: Pt improved, looks primarily like volume overload, has not been taking extra lasix like her census enumerator told her to, will dc home after IV lasix, 80mg given here with good urine output. NO oxygen requirement. Return precautions given and understood. To take extra lasix next 2 days and call her doctor.. 11/22 13:18 Order name: Blood Culture Adult (2) rn 11/22 13:18 Order name: BMP; Complete Time: 15:35 rn 11/22 13:18 Order name: CBC with Diff; Complete Time: 15:09 rn 11/22 13:18 Order name: NT PRO-BNP; Complete Time: 15:35 rn 11/22 13:18 Order name: Troponin (emerg Dept Use Only); Complete Time: 15:35 rn 11/22 13:18 Order name: Procalcitonin; Complete Time: 15:35 rn 11/22 13:18 Order name: XRAY CXR (1 view); Complete Time: 14:26 rn 11/22 13:18 Order name: EKG; Complete Time: 13:19 rn 11/22 13:18 Order name: Cardiac monitoring; Complete Time: 13:26 rn 11/22 13:18 Order name: EKG - Nurse/Tech; Complete Time: 14:37 rn 11/22 13:18 Order name: IV Saline Lock; Complete Time: 14:32 rn 11/22 13:18 Order name: Labs collected and sent; Complete Time: 14:37 rn 11/22 13:18 Order name: O2 Per Protocol; Complete Time: 13: rn 11/22 13:18 Order name: O2 Sat Monitoring; Complete Time: 13:26 rn Administered Medications: 14:56 Drug: Lasix 40 mg Route: IVP; Site: right forearm; jr10 15:46 Follow up: Response: No adverse reaction jr10 16:25 Drug: Lasix 40 mg Route: IVP; Site: right forearm; jr10 16:50 Follow up: Response: No adverse reaction jr10 Disposition: 11/23/19 16:11 Discharged to Home. Impression: Unspecified combined systolic (congestive) and diastolic (congestive) heart failure. - Condition is Stable. - Discharge Instructions: Chronic Obstructive Pulmonary Disease, Heart Failure. - Medication Reconciliation Form, Thank You Letter, Antibiotic Education, Prescription Opioid Use form. - Follow up: Private Physician; When: 2 - 3 days; Reason: Recheck today's complaints, Re-evaluation by your physician. - Problem is chronic. - Symptoms have improved. Signatures: Dispatcher [employer] EDMS Bertha Green RN RN iw Nieto, Roman, MD MD rn Rivera, Jessica, RN RN jr10 Corrections: (The following items were deleted from the chart) 16:50 16:11 11/23/2019 16:11 Discharged to Home. Impression: Unspecified combined systolic jr10 (congestive) and diastolic (congestive) heart failure. Condition is Stable. Forms are Medication Reconciliation Form, Thank You Letter, Antibiotic Education, Prescription Opioid Use. Follow up: Private Physician; When: 2 - 3 days; Reason: Recheck today's complaints, Re-evaluation by your physician. Problem is chronic. Symptoms have improved. rn
--- NOTE | 2019-11-23 16:12 | ER ---
Nurse's Notes [facility] Name: Kandice Elizabeth Age: 64 yrs Sex: Female : 1955 Arrival Date: 11/23/2019 Time: 13:03 Bed 16 Private MD: Diagnosis: Unspecified combined systolic (congestive) and diastolic (congestive) heart failure Presentation: 11/22 13:07 Chief complaint: Patient states: increasing SOB over past two weeks, reports low grade iw fever of 99.7, EMS reports SpO2 was 93-97%, pt has hx of COPD, CHF, has had swelling to BLE, and left flank pain, last COVID test was two weeks ago and was negative. Coronavirus screen: difficulty breathing, shortness of breath, Client presents with at least one sign or symptom that may indicate coronavirus-19. Standard/surgical mask placed on the client. Provider contacted for isolation considerations. The client reports previous COVID testing was negative. Ebola Screen: Patient negative for fever greater than or equal to 101.5 degrees Fahrenheit, and additional compatible Ebola Virus Disease symptoms Patient denies exposure to infectious person. Patient denies travel to an Ebola-affected area in the 21 days before illness onset. No symptoms or risks identified at this time. 13:07 Method Of Arrival: EMS: [facility] iw 13:07 Acuity: COLBY 3 iw 13:32 Initial Sepsis Screen: Does the patient meet any 2 criteria? No. Patient's initial iw sepsis screen is negative. Does the patient have a suspected source of infection? No. Patient's initial sepsis screen is negative. Risk Assessment: Do you want to hurt yourself or someone else? Patient reports no desire to harm self or others. Onset of symptoms was November 12, 2019. Historical: - Allergies: 13:50 No Known Allergies; jr10 - PMHx: 13:33 Atrial Fib; Brain bleed; CHF; COPD; Diabetes - IDDM; Hypertension; iw - PSHx: 13:33 bypass surgery; iw - Immunization history:: Adult Immunizations up to date. - Social history:: Smoking status: Patient denies any tobacco usage or history of. - Family history:: not pertinent. - Hospitalizations: : No recent hospitalization is reported. Screenin:45 Abuse screen: Denies threats or abuse. Denies injuries from another. Nutritional jr10 screening: No deficits noted. Tuberculosis screening: No symptoms or risk factors identified. Fall Risk Fall in past 12 months (25 points). No secondary diagnosis (0 pts). IV access (20 points). Ambulatory Aid- None/Bed Rest/Nurse Assist (0 pts). Gait- Weak (10 pts.). Mental Status- Oriented to own ability (0 pts). Assessment: 13:45 General: Appears uncomfortable, Behavior is calm, cooperative, appropriate for age. jr10 Pain: Complains of pain in chest Pain does not radiate. Pain currently is 6 out of 10 on a pain scale. Quality of pain is described as pressure, Also complains of shortness of breath. Neuro: No deficits noted. Level of Consciousness is awake, alert, obeys commands, Oriented to person, place, time, situation, Appropriate for age. Cardiovascular: Reports chest pain, shortness of breath, Patient's skin is warm and dry. Pulses are all present. Edema is 2+ to left ankle, left foot, left toes, right ankle, right foot and right toes Rhythm is sinus rhythm. Respiratory: Reports shortness of breath on exertion Airway is patent Respiratory effort is even, unlabored, Respiratory pattern is symmetrical, tachypnea Breath sounds are clear bilaterally. the patient has moderate shortness of breath. GI: No deficits noted. No signs and/or symptoms were reported involving the gastrointestinal system. : No deficits noted. No signs and/or symptoms were reported regarding the genitourinary system. EENT: No deficits noted. No signs and/or symptoms were reported regarding the EENT system. Derm: No deficits noted. No signs and/or symptoms reported regarding the dermatologic system. Musculoskeletal: Reports weakness in generalized. 13:58 Reassessment: lab called for blood draw. jr10 14:18 Reassessment: lab at bedside for blood draw. jr10 Vital Signs: 13:49 BP 120 / 76; Pulse 86; Resp 26; Pulse Ox 100% on R/A; Pain 0/10; jr10 14:57 BP 106 / 72; Pulse 95; Resp 23; Pulse Ox 100% on R/A; jr10 16:30 BP 124 / 88; Pulse 85; Resp 19; Pulse Ox 100% on R/A; Pain 0/10; jr10 16:49 Temp 98.2(TE); jr10 ED Course: 13:03 Patient arrived in ED. jr10 13:10 Triage completed. iw 13:11 Griselda Barrett RN is Primary Nurse. jr10 13:17 Shaan Mukherjee MD is Attending Physician. rn 13:45 Patient maintains SpO2 saturation greater than 95% on room air. jr10 13:45 Patient has correct armband on for positive identification. Placed in gown. Bed in low jr10 position. Call light in reach. Side rails up X2. desk monitor on. Pulse ox on. NIBP on. 13:49 Inserted saline lock: 20 gauge in right forearm, using aseptic technique. IV is patent, jr10 is intact, with good blood return, Flushed. 14:06 XRAY CXR (1 view) In Process Unspecified. EDMS 16:35 IV discontinued, intact, bleeding controlled, No redness/swelling at site. Pressure jr10 dressing applied. 16:36 No provider procedures requiring assistance completed. jr10 Administered Medications: 14:56 Drug: Lasix 40 mg Route: IVP; Site: right forearm; jr10 15:46 Follow up: Response: No adverse reaction jr10 16:25 Drug: Lasix 40 mg Route: IVP; Site: right forearm; jr10 16:50 Follow up: Response: No adverse reaction jr10 Outcome: 16:11 Discharge ordered by . rn 16:49 Discharged to home via wheelchair. jr10 16:49 Condition: improved 16:49 Discharge instructions given to patient, Instructed on discharge instructions, follow up and referral plans. Demonstrated understanding of instructions, follow-up care. 16:50 Patient left the ED. jr10 Signatures: Dispatcher [employer] EDMS Bertha Green RN RN Shaan Mukherjee MD MD rn Rivera, Jessica, RN RN jr10
[2019-11-26 10:18] VITALS: O2SAT 100
[2019-11-26 10:21] VITALS: BP 124/88
[2019-11-26 10:22] VITALS: TEMP 98.2
== END 2019-11-23 16:50 | disposition home or self-care (01) ==
LOC: ER 12:55
DX: I50.40 Unspecified combined systolic (congestive) and diastolic (congestive) heart failure (principal); I10 Essential (primary) hypertension; J44.9 Chronic obstructive pulmonary disease, unspecified; I48.91 Unspecified atrial fibrillation
CPT/HCPCS: 93005; 87040; 85025; 80048; 36415; 84484; 84145; 83880; 71045; 96374; 99285; J1940 ×2

== ENCOUNTER 2019-12-09 05:07 | Inpatient (IN) | payer OTHER ==
--- OUTSIDE RECORDS SUMMARY | 2019-12-09 05:12 | XMS REPORT | Continuity of Care Document ---
:1955 Author Organization [facility] t Address [address] [place] [address] Care Team Providers Name Role Phone Unavailable Unavailable Unavailable Payers Payer Name Policy Type Policy Number Effective Date Expiration Date S ource Problems This patient has no known problems. Allergies, Adverse Reactions, Alerts Allergy Allergy Status Severity Reaction(s) Onset Inactive Treating Comm ents Source Name Type Date Date Clinician IVP DYE DA Active MO 2020-0 [facility] 8[facility] [place] 00:[facility]: d 00 [facility] IVP DYE DA Active MO 2020-0 [facility] 8[facility]14 [place] 00:[facility]: d 00 [facility] No Known DA Active U 2020-0 [facility] Allergie 5-25 Clear s 00:00: House 00 [facility] No Known DA Active U 2002-0 [facility] Drug 3-21 [place] Intolera 00:00: d nc 00 [facility] IVP DYE DA Active U 2002-0 [facility] 3-21 [place] 00:00: d [address] [place] [address] Center No Known DA Active U 2002-0 [facility] Drug 3-21 [place] Allergie 00:00: d [facility] No Known DA Active U 2002- [facility] Food 3-21 [place] Allergie [facility]: d [facility] No Known DA [facility] U 2002[facility] Medications This patient has no known medications. Procedures This patient has no known procedures. Results Test Description Test Time Test Comments Results Result Comments Source GLUCOSE BEDSIDE TESTING 2019-11-11 09:56:00 Test Item Value Reference Range Interpretation Comme nts GLUCOSE BEDSIDE TESTING (test code = GLUBED) 225 mg/dL 70-110 H GLUCOSE BEDSIDE [id number] 23:00:00 Test Item Value Reference Range Interpretation Comments GLUCOSE BEDSIDE TESTING (test code 301 mg/dL 70-110 H = GLUBED) GLUCOSE BEDSIDE [id number] 16:43:00 Test Item Value Reference Range Interpretation Comments GLUCOSE BEDSIDE TESTING (test code 243 mg/dL 70-110 H = GLUBED) GLUCOSE BEDSIDE [id number] 12:30:00 Test Item Value Reference Range Interpretation Comments GLUCOSE BEDSIDE TESTING (test code 195 mg/dL 70-110 H = GLUBED) BASIC METABOLIC [id number] 10:40:00 Test Item Value Reference Range Interpretation [...] 8.2 MG/DL 8.5-10.1 L CA) GLUCOSE BEDSIDE [id number] 08:59:00 Test Item Value Reference Range Interpretation Comments GLUCOSE BEDSIDE TESTING (test code 119 mg/dL 70-110 H = GLUBED) GLUCOSE BEDSIDE [id number] 21:36:00 Test Item Value Reference Range Interpretation Comments GLUCOSE BEDSIDE TESTING (test code 146 mg/dL 70-110 H = GLUBED) GLUCOSE BEDSIDE [id number] 16:11:00 Test Item Value Reference Range Interpretation Comments GLUCOSE BEDSIDE TESTING (test code 191 mg/dL 70-110 H = GLUBED) - XR CHEST 1 [id number] 15:39:00 Name: AILYN COBIAN [place] : 1955 Age/S: 64 / F [address] Unit #: [id number] Loc: [place] [address] Phys: Raleigh Roy MD Acct: [id number] Dis Date: Status: ADM IN PHONE #: [phone] Exam Date: 11/09/2019 1515 FAX #: Reason: FALL EXAMS: CPT: [id number] XR CHEST 1 V 97510 Fluoro Time: DAP (Gy m2): Air Kerma [...] PAGE 1 Signed Report Name: AILYN COBIAN [place] : 1955 Age/S: 64 / F [id number] Unit #: [id number] Loc: [place] [address] Phys: Raleigh Roy MD Acct: [id number] Dis Date: Status: ADM IN PHONE #: [phone] Exam Date: 11/09/2019 1515 FAX #: Reason: FALL EXAMS: CPT: [id number] XR CHEST 1 V 81350 Fluoro Time: DAP (Gy m2): Air Kerma (mGy): <Continued> Technologist: Mary Ann Cortes,RT(R)(CT); Jodi Baker, RT(R) [facility] Date/Time: 11/09/2019 (1539) tZIAR.RA31 Orig Print D/T: S: 11/09/2019 (7860) PAGE 2 Signed Report- XR HIP W/PEL UNI 2+V [id number] 15:34:00 [facility] 1955 Age/S: 64 / F [address] Unit #: [id number] Loc: [place] [address] Phys: Raleigh Roy MD Acct: [id number] Dis Date: Status: ADM IN PHONE #: [phone] Exam Date: 11/09/2019 1526 FAX #: Reason: HIP PAIN EXAMS: CPT: [id number] XR HIP W/PEL UNI 2+[place] [address] Fluoro Time: DAP (Gy m2): Air Kerma [...] MD PAGE 1 Signed Report [facility]: [facility] 1955 Age/S: 64 / F [address] Unit #: [id number] Loc: [place] [address] Phys: Raleigh Roy Acct: [id number] Dis Date: Status: ADM IN PHONE #: [phone] Exam Date: 11/09/2019 1526 FAX #: Reason: HIP PAIN EXAMS: CPT: [id number] XR HIP W/PEL UNI 2+[place] [address] Fluoro Time: DAP (Gy m2): Air Kerma (mGy): <Continued> Technologist: Mary Ann Cortes, RT(R)(CT); Jodi Baker, RT(R) Trnnvb Date/Time: 11/09/2019 (1534) t.SDR.AH26 Orig Print D/T: S: 11/09/2019 (5647) PAGE 2 Signed Report- XR FACIAL BONES [id number] 15:30:00 Name: AILYN COBIAN [facility] : 1955 Age/S: 64 / F [address] [address] Unit #: [id number] Loc: [place] [address] Phys: Raleigh Roy MD Acct: [id number] Dis Date: Status: ADM IN PHONE #: [phone] Exam Date: 11/09/2019 1520 FAX #: Reason: FALL EXAMS: CPT: [id number] XR FACIAL BONES <3V 17096 Fluoro Time: DAP (Gy m2): Air Kerma [...] PAGE 1 Signed Report Name: AILYN COBIAN [place] : 1955 Age/S: 64 / F [address] [address] Unit #: [id number] Loc: [place] [address] Phys: Raleigh Roy MD Acct: [id number] Dis Date: Status: ADM IN PHONE #: [phone] Exam Date: 11/09/2019 1520 FAX #: Reason: FALL EXAMS: CPT: [id number] XR FACIAL BONES <3V 65548 Fluoro Time: DAP (Gy m2): Air Kerma (mGy): <Continued> Technologist: Mary Ann Cortes, RT(R)(CT); Jodi Baker RT(R) Trnscb Date/Time: 11/09/2019 (1530) GregAH26 PAGE 2 Signed ReportGLUCOSE BEDSIDE [id number] 12:06:00 Test Item Value Reference Range Interpretation Comments GLUCOSE BEDSIDE TESTING (test code 252 mg/dL 70-110 H = GLUBED) BASIC METABOLIC [id number] 07:58:00 Test Item Value Reference Range Interpretation [...] CA) 7.8 MG/DL 8.5-10.1 L CBC W/AUTO [id number] 07:37:00 Test Item Value Reference Range Interpretation [...] NO DIFF/SCN CRITERIA = MDIFF) GLUCOSE BEDSIDE [id number] 01:26:00 Test Item Value Reference Range Interpretation Comments GLUCOSE BEDSIDE TESTING (test code 281 mg/dL 70-110 H = GLUBED) GLUCOSE BEDSIDE [id number] 19:27:00 Test Item Value Reference Range Interpretation Comments GLUCOSE BEDSIDE TESTING (test code 233 mg/dL 70-110 H = GLUBED) GLUCOSE BEDSIDE [id number] 17:43:00 Test Item Value Reference Range Interpretation Comments GLUCOSE BEDSIDE TESTING (test code 245 mg/dL 70-110 H = GLUBED) VANCOMYCIN [id number] 10:58:00 Test Item Value Reference Range Interpretation Comments VANCOMYCIN TROUGH (test code = 17.9 mcG/ML 10-20 N VANCT) GLUCOSE BEDSIDE [id number] 08:14:00 Test Item Value Reference Range Interpretation Comments GLUCOSE BEDSIDE TESTING (test code 147 mg/dL 70-110 H = GLUBED) BASIC METABOLIC [id number] 04:07:00 Test Item Value Reference Range Interpretation [...] CA) 8.2 MG/DL 8.5-10.1 L CBC W/AUTO [id number] 03:46:00 Test Item Value Reference Range Interpretation [...] NO DIFF/SCN CRITERIA = MDIFF) GLUCOSE BEDSIDE [id number] 21:11:00 Test Item Value Reference Range Interpretation Comments GLUCOSE BEDSIDE TESTING (test code 195 mg/dL 70-110 H = GLUBED) VANCOMYCIN [id number] 20:29:00 Test Item Value Reference Range Interpretation Comments VANCOMYCIN TROUGH (test code = 22.6 mcG/ML 10-20 H VANCT) - RETRO [id number] 18:55:00 Name: [place] : 1955 Age/S: 64 / F [address] Unit #: [id number] Loc: [place] [address] Phys: Giorgi Mejia DO Acct: [id number] Dis Date: Status: ADM IN PHONE #: [phone] Exam Date: 11/07/2019 1810 FAX #: Reason: GI on CKD vs CKD 3 EXAMS: CPT: [id number] [employer] [address] Examination: Ultrasound retroperitoneum limited Location code: H60 [...] Roy MD; Giorgi Mejia DO Technologist: Fanny Christiansonb Date/Time: 11/07/2019 (1854) GregVR5 PAGE 1 Signed Report Name: AILYN COBIAN [place] : 1955 Age/S: 64 / F [address] Unit #: [id number] Loc: [place] [address] Phys: Giorgi Mejia DO Acct: [id number] Dis Date: Status: ADM IN PHONE #: [phone] ExamDate: 11/07/2019 1810 FAX #: Reason: GI on CKD vs CKD 3 EXAMS: CPT: [id number] [employer] [address] <Continued> Orig Print D/T:S: 11/07/2019 (1858) Probe: PAGE2 Signed ReportGLUCOSE BEDSIDE [id number] 17:04:00 Test Item Value Reference Range Interpretation Comments GLUCOSE BEDSIDE TESTING (test code 174 mg/dL 70-110 H = GLUBED) PARATHYROID HORMONE [id number] 14:11:00 Test Item Value Reference Range Interpretation Comments PARATHYROID HORMONE INTACT (test 324.5 PG/ML 26-72 H code = PARAI) GLUCOSE BEDSIDE [id number] 12:20:00 Test Item Value Reference Range Interpretation Comments GLUCOSE BEDSIDE TESTING (test code 175 mg/dL 70-110 H = GLUBED) GLUCOSE BEDSIDE [id number] 08:16:00 Test Item Value Reference Range Interpretation Comments GLUCOSE BEDSIDE TESTING (test code 134 mg/dL 70-110 H = GLUBED) BASIC METABOLIC [id number] 06:31:00 Test Item Value Reference Range Interpretation [...] CA) 8.5 MG/DL 8.5-10.1 N CBC W/AUTO [id number] 06:14:00 Test Item Value Reference Range Interpretation [...] NO DIFF/SCN CRITERIA = MDIFF) GLUCOSE BEDSIDE [id number] 19:58:00 Test Item Value Reference Range Interpretation Comments GLUCOSE BEDSIDE TESTING (test code = 79 mg/dL 70-110 N GLUBED) BASIC METABOLIC [id number] 19:14:00 Test Item Value Reference Range Interpretation [...] CA) 8.3 MG/DL 8.5-10.1 L CBC W/AUTO [id number] 19:06:00 Test Item Value Reference Range Interpretation [...] DIFF/SCN CRITERIA = MDIFF) COVID 19 INHOUSE [id number] 18:15:00 Test Item Value Reference Range Interpretation Comments COVID 19 INHOUSE AG NEGATIVE Negative Per manu facturer, (test code = negative result s should [id number]) be treated aspr esumptive and, if inconsi [...] nsistent with COVID-19. Emergent procedure? YESGLUCOSE BEDSIDE [id number] 17:32:00 Test Item Value Reference Range Interpretation Comments GLUCOSE BEDSIDE TESTING (test code 126 mg/dL 70-110 H = GLUBED) GLUCOSE BEDSIDE [id number] 12:07:00 Test Item Value Reference Range Interpretation Comments GLUCOSE BEDSIDE TESTING (test code 291 mg/dL 70-110 H = GLUBED) - XR CHEST 1 [id number] 11:47:00 Name: MANGOAILYN [facility] : 1955 Age/S: 64 / F [address] [address] Unit #: [id number] Loc: [place] [address] Phys: Raleigh Roy MD Acct: [id number] Dis Date: Status: ADM IN PHONE #: [phone] Exam Date: 10/30/2019 1140 FAX #: Reason: chest pain EXAMS: CPT: [id number] XR CHEST 1 V 55622 Fluoro Time: DAP (Gy m2): Air Kerma [...] PAGE 1 Signed Report Name: AILYN COBIAN : 1955 Age/S: 64 / F [id number] [place] [address] Unit #: [id number] Loc: [place] [address] Phys: Raleigh Roy MD Acct: [id number] Dis Date: Status: ADM IN PHONE #: [phone] Exam Date: 10/30/2019 1140 FAX#: Reason: chest pain EXAMS: CPT: [id number] XR CHEST 1 V 90699 Fluoro Time: DAP (Gy m2): Air Kerma (mGy): <Continued> Technologist: Kwesi Montalvo RT(R)(CT) Trnscb Date/Time: 10/30/2019 (1147) t.CB5 Orig Print D/T: S: 10/30/2019 (1150) PAGE 2 Signed ReportGLUCOSE BEDSIDE [id number] 07:48:00 Test Item Value Reference Range Interpretation Comments GLUCOSE BEDSIDE TESTING (test code 255 mg/dL 70-110 H = GLUBED) BASIC METABOLIC [id number] 06:38:00 Test Item Value Reference Range Interpretation [...] code = CA) 8.2 MG/DL 8.5-10.1 L [id number] 06:38:00 Test Item Value Reference Range Interpretation Comments MAGNESIUM (test code = MAG) 2.1 MG/DL 1.8-2.4 N CBC W/AUTO [id number] 06:25:00 Test Item Value Reference Range Interpretation [...] NO DIFF/SCN CRITERIA = MDIFF) GLUCOSE BEDSIDE [id number] 20:19:00 Test Item Value Reference Range Interpretation Comments GLUCOSE BEDSIDE TESTING (test code 115 mg/dL 70-110 H = GLUBED) GLUCOSE BEDSIDE [id number] 17:06:00 Test Item Value Reference Range Interpretation Comments GLUCOSE BEDSIDE TESTING (test code 120 mg/dL 70-110 H = GLUBED) GLUCOSE BEDSIDE [id number] 12:08:00 Test Item Value Reference Range Interpretation Comments GLUCOSE BEDSIDE TESTING (test code 211 mg/dL 70-110 H = GLUBED) [id number] 10:09:00 Test Item Value Reference Range Interpretation Comments VANCOMYCIN (test code = VANCO) 27.1 mcG/ML 5-40 N GLUCOSE BEDSIDE [id number] 08:07:00 Test Item Value Reference Range Interpretation Comments GLUCOSE BEDSIDE TESTING (test code 273 mg/dL 70-110 H = GLUBED) CBC W/AUTO [id number] 05:11:00 Test Item Value Reference Range Interpretation [...] NT WITH AUTO DIFFERENTI AL. BASIC METABOLIC [id number] 05:04:00 Test Item Value Reference Range Interpretation [...] code = CA) 8.5 MG/DL 8.5-10.1 N [id number] 05:04:00 Test Item Value Reference Range Interpretation Comments MAGNESIUM (test code = MAG) 2.2 MG/DL 1.8-2.4 N CBC W/AUTO [id number] 04:43:00 Test Item Value Reference Range Interpretation [...] code = DIFF/SCN CRITERIA MDIFF) GLUCOSE BEDSIDE [id number] 20:39:00 Test Item Value Reference Range Interpretation Comments GLUCOSE BEDSIDE TESTING (test code 195 mg/dL 70-110 H = GLUBED) GLUCOSE BEDSIDE [id number] 17:53:00 Test Item Value Reference Range Interpretation Comments GLUCOSE BEDSIDE TESTING (test code 205 mg/dL 70-110 H = GLUBED) - RETRO [id number] 14:10:00 Name: MANGOAILYNMOIZ KAISERBlake [place] : 1955 Age/S: 64 / F [address] [address] Unit #: [id number] Loc: [place] [address] Phys: Giorgi Mejia DO Acct: [id number] Dis Date: Status: ADM IN PHONE #: [phone] Exam Date: 10/28/2019 1325 FAX #: Reason: GI on CKD vs CKD EXAMS: CPT: [id number] [employer] [address] Location ofdictation: B2 ULTRASOUND OF THE KIDNEYS: [...] MD; Giorgi Mejia DO Technologist: Carli Lakhani Trnnvb Date/Time: 10/28/2019 (1410) GregPXC PAGE 1 Signed Report Name: AILYN COBIAN : 1955 Age/S: 64 / F [address] [address] Unit #:[id number] Loc: [place] [address] Phys: Giorgi Mejia DO Acct: [id number] Dis Date: Status: ADM IN PHONE #: [phone] Exam Date: 10/28/2019 1325 FAX #: Reason: GI on CKD vs CKD EXAMS: CPT: [id number] [employer] [address] <Continued> Orig Print D/T: S: 10/28/2019 (8260) Probe: PAGE 2 Signed ReportGLUCOSE BEDSIDE [id number] 12:33:00 Test Item Value Reference Range Interpretation Comments GLUCOSE BEDSIDE TESTING (test code 243 mg/dL 70-110 H = GLUBED) GLYCOSYLATED HEMOGLOBIN [id number] 10:34:00 Test Item Value Reference Range Interpretation [...] 1.22 Ratio 1.48-3.22 Avg L BASIC METABOLIC [id number] 05:40:00 Test Item Value Reference Range Interpretation [...] CA) 8.5 MG/DL 8.5-10.1 N BASIC METABOLIC [id number] 05:33:00 Test Item Value Reference Range Interpretation [...] CA) 8.5 MG/DL 8.5-10.1 N CBC W/AUTO [id number] 05:27:00 Test Item Value Reference Range Interpretation [...] (test code NO DIFF/SCN CRITERIA = MDIFF) [id number] 01:51:00 Test Item Value Reference Range Interpretation [...] may valerie [facility]. Completed by Nursing: [id number] 22:58:00 Test Item Value Reference Range Interpretation [...] Completed by Nursing: NOCOVID 19 Asymptomatic IH [id number] 21:23:00 Test Item Value Reference Range Interpretation Comments COVID 19 Asymptomatic NEGATIVE Negative Per tye nufactpaulier, IH AG (test code = negative results [...] tent with COVID-19. Emergent procedure? NORHEUMATOID FACTOR [id number] 17:08:00 Test Item Value Reference Range Interpretation Comments RHEUMATOID FACTOR <10.0 IU/mL 0.0-13.9 Performed At: HD SCREEN (test code = [facility] Efsspvw3312 RA) [place], [place] [id number] Gaytan MD Ph:[phone] ANTINUCLEAR ANTIBODIES [id number] 17:08:00 Test Item Value Reference Range Interpretation Comments NAVI TITER (test code Negative () = ANATITR) Nega tive <1:80 Borderline 1:8 0 Positive >1:80Performed At: [facility] [address] [id number] Gaytan MD Ph:[phone] NEUTROPHIL CYTOPLASMIC [id number] 17:08:00 Test Item Value Reference Range Interpretation [...] testing of p ositive sera with both NV-3 and MPO-ANCA enzyme immunoassays. A s many as 5% serumsamples are positive only b y EIA. Ref. AM J Clin Vibrra8988;111: 507-513. ATYPICAL ANCA <1:20 titer Neg:<1:20 The atypical p ANCA pattern (test code = has been observ ed in ANCACOM) asignificant pe rcentage of patients with u lcerative colitis,primary sclerosing cholangitis and autoimmune hepatitis.Perfo rmed At: [facility] [address] [place] [id number] ra [employer] THOMPSON Ph:[phone] RHEUMATOID FACTOR [id number] 13:10:00 Test Item Value Reference Range Interpretation Comments RHEUMATOID FACTOR <10.0 IU/mL 0.0-13.9 Performed At: HD SCREEN (test code = [facility] [place], [place] [id number] Gaytan MD Ph:[phone] ANTINUCLEAR ANTIBODIES [id number] 13:10:00 Test Item Value Reference Range Interpretation Comments NAVI TITER (test code Negative () = ANATITR) Nega tive <1:80 Borderline 1:8 0 Positive >1:80Performed At: [facility] [id number] Gaytan MD Ph:[phone] NEUTROPHIL CYTOPLASMIC [id number] 13:10:00 Test Item Value Reference Range Interpretation Comments AB ANTI-NEUTROPHIL CYTO C (test code = NEUTCABC) AB ANTI-NEUTROPHIL CYTO P (test code = NEUTCAB-P) ATYPICAL ANCA (test code = ANCACOM) RHEUMATOID FACTOR [id number] 09:11:00 Test Item Value Reference Range Interpretation Comments RHEUMATOID FACTOR <10.0 IU/mL 0.0-13.9 Performed At: SCREEN (test code = [facility] ) [place], [place] [id number] Gaytan MD Ph:[phone] ANTINUCLEAR ANTIBODIES [id number] 09:11:00 Test Item Value Reference Range Interpretation Comments NAVI TITER (test code = ANATITR) NEUTROPHIL CYTOPLASMIC [id number] 09:11:00 Test Item Value Reference Range Interpretation Comments AB ANTI-NEUTROPHIL CYTO C (test code = NEUTCABC) AB ANTI-NEUTROPHIL CYTO P (test code = NEUTCAB-P) ATYPICAL ANCA (test code = ANCACOM) GLUCOSE BEDSIDE [id number] 08:06:00 Test Item Value Reference Range Interpretation Comments GLUCOSE BEDSIDE TESTING (test code 159 mg/dL 70-110 H = GLUBED) GLUCOSE BEDSIDE [id number] 06:24:00 Test Item Value Reference Range Interpretation Comments GLUCOSE BEDSIDE TESTING (test code 137 mg/dL 70-110 H = GLUBED) BASIC METABOLIC [id number] 06:18:00 Test Item Value Reference Range Interpretation [...] CA) 8.3 MG/DL 8.5-10.1 L CBC W/AUTO [id number] 06:02:00 Test Item Value Reference Range Interpretation [...] NO DIFF/SCN CRITERIA = MDIFF) GLUCOSE BEDSIDE [id number] 05:41:00 Test Item Value Reference Range Interpretation Comments GLUCOSE BEDSIDE TESTING (test code = 74 mg/dL 70-110 N GLUBED) GLUCOSE BEDSIDE [id number] 20:51:00 Test Item Value Reference Range Interpretation Comments GLUCOSE BEDSIDE TESTING (test code 207 mg/dL 70-110 H = GLUBED) GLUCOSE BEDSIDE [id number] 19:59:00 Test Item Value Reference Range Interpretation Comments GLUCOSE BEDSIDE TESTING (test code 185 mg/dL 70-110 H = GLUBED) GLUCOSE BEDSIDE [id number] 19:51:00 Test Item Value Reference Range Interpretation Comments GLUCOSE BEDSIDE TESTING (test code 174 mg/dL 70-110 H = GLUBED) GLUCOSE BEDSIDE [id number] 12:01:00 Test Item Value Reference Range Interpretation Comments GLUCOSE BEDSIDE TESTING (test code = 99 mg/dL 70-110 N GLUBED) GLUCOSE BEDSIDE [id number] 10:01:00 Test Item Value Reference Range Interpretation Comments GLUCOSE BEDSIDE TESTING (test code = 96 mg/dL 70-110 N GLUBED) BASIC METABOLIC [id number] 06:37:00 Test Item Value Reference Range Interpretation [...] CA) 8.6 MG/DL 8.5-10.1 N CBC W/AUTO [id number] 06:31:00 Test Item Value Reference Range Interpretation [...] NO DIFF/SCN CRITERIA = MDIFF) GLUCOSE BEDSIDE [id number] 21:06:00 Test Item Value Reference Range Interpretation Comments GLUCOSE BEDSIDE TESTING (test code 315 mg/dL 70-110 H = GLUBED) GLUCOSE BEDSIDE [id number] 17:01:00 Test Item Value Reference Range Interpretation Comments GLUCOSE BEDSIDE TESTING (test code 368 mg/dL 70-110 H = GLUBED) VANCOMYCIN [id number] 16:41:00 Test Item Value Reference Range Interpretation Comments VANCOMYCIN TROUGH (test code = 20.4 mcG/ML 10-20 H VANCT) GLUCOSE BEDSIDE [id number] 11:27:00 Test Item Value Reference Range Interpretation Comments GLUCOSE BEDSIDE TESTING (test code 128 mg/dL 70-110 H = GLUBED) BASIC METABOLIC [id number] 08:49:00 Test Item Value Reference Range Interpretation [...] CA) 8.9 MG/DL 8.5-10.1 N GLUCOSE BEDSIDE [id number] 08:31:00 Test Item Value Reference Range Interpretation Comments GLUCOSE BEDSIDE TESTING (test code 160 mg/dL 70-110 H = GLUBED) CBC W/AUTO [id number] 08:26:00 Test Item Value Reference Range Interpretation [...] NO DIFF/SCN CRITERIA = MDIFF) GLUCOSE BEDSIDE [id number] 21:15:00 Test Item Value Reference Range Interpretation Comments GLUCOSE BEDSIDE TESTING (test code 224 mg/dL 70-110 H = GLUBED) GLUCOSE BEDSIDE [id number] 16:30:00 Test Item Value Reference Range Interpretation Comments GLUCOSE BEDSIDE TESTING (test code 255 mg/dL 70-110 H = GLUBED) GLUCOSE BEDSIDE [id number] 11:42:00 Test Item Value Reference Range Interpretation Comments GLUCOSE BEDSIDE TESTING (test code 402 mg/dL 70-110 H = GLUBED) BASIC METABOLIC [id number] 10:46:00 Test Item Value Reference Range Interpretation [...] CA) 8.6 MG/DL 8.5-10.1 N GLUCOSE BEDSIDE [id number] 07:58:00 Test Item Value Reference Range Interpretation Comments GLUCOSE BEDSIDE TESTING (test code 333 mg/dL 70-110 H = GLUBED) GLUCOSE BEDSIDE [id number] 21:32:00 Test Item Value Reference Range Interpretation Comments GLUCOSE BEDSIDE TESTING (test code 417 mg/dL 70-110 H = GLUBED) GLUCOSE BEDSIDE [id number] 18:48:00 Test Item Value Reference Range Interpretation Comments GLUCOSE BEDSIDE TESTING (test code 435 mg/dL 70-110 H = GLUBED) GLUCOSE BEDSIDE [id number] 16:42:00 Test Item Value Reference Range Interpretation Comments GLUCOSE BEDSIDE TESTING (test code 513 mg/dL 70-110 HH = GLUBED) GLUCOSE BEDSIDE [id number] 11:33:00 Test Item Value Reference Range Interpretation Comments GLUCOSE BEDSIDE TESTING (test code 448 mg/dL 70-110 H = GLUBED) GLUCOSE BEDSIDE [id number] 07:53:00 Test Item Value Reference Range Interpretation Comments GLUCOSE BEDSIDE TESTING (test code 411 mg/dL 70-110 H = GLUBED) BASIC METABOLIC [id number] 04:10:00 Test Item Value Reference Range Interpretation [...] CA) 8.7 MG/DL 8.5-10.1 N CBC W/AUTO [id number] 03:58:00 Test Item Value Reference Range Interpretation [...] NO DIFF/SCN CRITERIA = MDIFF) GLUCOSE BEDSIDE [id number] 22:08:00 Test Item Value Reference Range Interpretation Comments GLUCOSE BEDSIDE TESTING (test code 266 mg/dL 70-110 H = GLUBED) GLUCOSE BEDSIDE [id number] 22:07:00 Test Item Value Reference Range Interpretation Comments GLUCOSE BEDSIDE TESTING (test code 362 mg/dL 70-110 H = GLUBED) GLUCOSE BEDSIDE [id number] 16:43:00 Test Item Value Reference Range Interpretation Comments GLUCOSE BEDSIDE TESTING (test code 187 mg/dL 70-110 H = GLUBED) - DUP VEIN UNI [id number] 12:41:00 Name: AILYN COBIAN [place] : 1955 Age/S: 64 / F [id number] [address] Unit #: [id number] Loc: [place] [address] Phys: Anatoly River MD Acct: [id number] Dis Date: Status: ADM IN PHONE #: [phone] Exam Date: 08/23/2019 1222 FAX #: Reason: RULE OUT DVT EXAMS: CPT: [id number] [id number] Doppler venous ultrasound right lower extremity History: [...] PAGE 1 Signed Report Name: AILYN COBIAN [place] : 1955 Age/S: 64 / F [id number] Unit #: [id number] Loc: [place] [address] Phys: Anatoly River MD Acct: [id number] Dis Date: Status: ADM IN PHONE #: [phone] Exam Date: 08/23/2019 1222 FAX #: Reason: RULE OUT DVT EXAMS: CPT: [id number] [place] [id number] <Continued> Orig Print D/T: S: 08/23/2019 (1764) Probe: PAGE 2 Signed ReportGLUCOSE BEDSIDE [id number] 11:32:00 Test Item Value Reference Range Interpretation Comments GLUCOSE BEDSIDE TESTING (test code 229 mg/dL 70-110 H = GLUBED) GLUCOSE BEDSIDE [id number] 08:03:00 Test Item Value Reference Range Interpretation Comments GLUCOSE BEDSIDE TESTING (test code 166 mg/dL 70-110 H = GLUBED) BASIC METABOLIC [id number] 06:43:00 Test Item Value Reference Range Interpretation [...] CA) 8.3 MG/DL 8.5-10.1 L CBC W/AUTO [id number] 06:35:00 Test Item Value Reference Range Interpretation [...] NO DIFF/SCN CRITERIA = MDIFF) GLUCOSE BEDSIDE [id number] 00:48:00 Test Item Value Reference Range Interpretation Comments GLUCOSE BEDSIDE TESTING (test code 252 mg/dL 70-110 H = GLUBED) GLUCOSE BEDSIDE [id number] 16:23:00 Test Item Value Reference Range Interpretation Comments GLUCOSE BEDSIDE TESTING (test code 147 mg/dL 70-110 H = GLUBED) GLUCOSE BEDSIDE [id number] 12:16:00 Test Item Value Reference Range Interpretation Comments GLUCOSE BEDSIDE TESTING (test code 286 mg/dL 70-110 H = GLUBED) GLUCOSE BEDSIDE [id number] 07:57:00 Test Item Value Reference Range Interpretation Comments GLUCOSE BEDSIDE TESTING (test code 197 mg/dL 70-110 H = GLUBED) BASIC METABOLIC [id number] 06:27:00 Test Item Value Reference Range Interpretation [...] CA) 8.1 MG/DL 8.5-10.1 L CBC W/AUTO [id number] 06:23:00 Test Item Value Reference Range Interpretation [...] NO DIFF/SCN CRITERIA = MDIFF) GLUCOSE BEDSIDE [id number] 22:45:00 Test Item Value Reference Range Interpretation Comments GLUCOSE BEDSIDE TESTING (test code 255 mg/dL 70-110 H = GLUBED) GLUCOSE BEDSIDE [id number] 16:53:00 Test Item Value Reference Range Interpretation Comments GLUCOSE BEDSIDE TESTING (test code 283 mg/dL 70-110 H = GLUBED) GLUCOSE BEDSIDE [id number] 12:20:00 Test Item Value Reference Range Interpretation Comments GLUCOSE BEDSIDE TESTING (test code 250 mg/dL 70-110 H = GLUBED) GLUCOSE BEDSIDE [id number] 10:22:00 Test Item Value Reference Range Interpretation Comments GLUCOSE BEDSIDE TESTING (test code 233 mg/dL 70-110 H = GLUBED) GLUCOSE BEDSIDE [id number] 07:57:00 Test Item Value Reference Range Interpretation Comments GLUCOSE BEDSIDE TESTING (test code 231 mg/dL 70-110 H = GLUBED) BASIC METABOLIC [id number] 06:22:00 Test Item Value Reference Range Interpretation [...] CA) 8.1 MG/DL 8.5-10.1 L CBC W/AUTO [id number] 06:10:00 Test Item Value Reference Range Interpretation [...] NO DIFF/SCN CRITERIA = MDIFF) GLUCOSE BEDSIDE [id number] 21:00:00 Test Item Value Reference Range Interpretation Comments GLUCOSE BEDSIDE TESTING (test code 313 mg/dL 70-110 H = GLUBED) GLUCOSE BEDSIDE [id number] 18:43:00 Test Item Value Reference Range Interpretation Comments GLUCOSE BEDSIDE TESTING (test code 396 mg/dL 70-110 H = GLUBED) GLUCOSE BEDSIDE [id number] 17:26:00 Test Item Value Reference Range Interpretation Comments GLUCOSE BEDSIDE TESTING (test code 410 mg/dL 70-110 H = GLUBED) GLUCOSE BEDSIDE [id number] 11:40:00 Test Item Value Reference Range Interpretation Comments GLUCOSE BEDSIDE TESTING (test code 354 mg/dL 70-110 H = GLUBED) - CT CHEST W/O [id number] 09:46:00 Name: MANGOAILYN [facility] : 1955 Age/S: 64 / F [address] [facility] Unit #: [id number] Loc: [place] [address] Phys: Anatoly River MD Acct: [id number] Dis Date: Status: ADM IN PHONE #: [phone] Exam Date: 08/20/2019909 FAX #: Reason: shortness of breath EXAMS: CPT: [id number] CT CHEST W/O CONTRAST 65972 HISTORY: Shortness of breath, history of heart [...] COBIAN : 1955 Age/S: 64 / F [address] [facility] Unit #: [id number] Loc: [place] [address] Phys: Anatoly River MD Acct: [id number] Dis Date: Status: ADM IN PHONE #: [phone] Exam Date: 08/20/2019 0910 FAX #: Reason: shortness of breath EXAMS: CPT: [id number] CT CHEST W/O CONTRAST 19021 <Continued> Cardiomegaly. Interstitial lung density and haziness [...] 08/20/2019 (0949) PAGE 2 Signed ReportGLUCOSE BEDSIDE [id number] 09:40:00 Test Item Value Reference Range Interpretation Comments GLUCOSE BEDSIDE TESTING (test code 266 mg/dL 70-110 H = GLUBED) CBC W/AUTO [id number] 08:31:00 Test Item Value Reference Range Interpretation [...] CONSISTA NT WITH AUTO DIFFERENTIAL. CBC W/AUTO [id number] 08:31:00 Test Item Value Reference Range Interpretation [...] DIFF REQUIRED NO DIFF/SCN CRITERIA SLIDE R FELICIANOBRODIEW (test code = MDIFF) CONSISTA NT WITH AUTO DIFFERENTIAL. RBC [id number] 08:31:00 Test Item Value Reference Range Interpretation Comments POLYCHROMASIA (test code = TRACE ON SCAN NONE POLC) ANISOCYTOSIS (test code = TRACE NONE ANISO) MACROCYTOSIS (test code = TRACE ON SCAN NONE MACR) STOMATOCYTES (test code = TRACE ON SCAN NONE STO) PLATELET ESTIMATE (test ADEQUATE THOUSAND ADEQUATE code = PLTEST) PLATELET MORPHOLOGY (test NORMAL code = PLTMORPH) CBC W/AUTO [id number] 08:31:00 Test Item Value Reference Range Interpretation [...] CONSISTA NT WITH AUTO DIFFERENTIAL. BASIC METABOLIC [id number] 06:57:00 Test Item Value Reference Range Interpretation [...] CA) 8.4 MG/DL 8.5-10.1 L CBC W/AUTO [id number] 06:51:00 Test Item Value Reference Range Interpretation [...] code = DIFF/SCN CRITERIA MDIFF) GLUCOSE BEDSIDE [id number] 20:28:00 Test Item Value Reference Range Interpretation Comments GLUCOSE BEDSIDE TESTING (test code 245 mg/dL 70-110 H = GLUBED) GLUCOSE BEDSIDE [id number] 16:33:00 Test Item Value Reference Range Interpretation Comments GLUCOSE BEDSIDE TESTING (test code 217 mg/dL 70-110 H = GLUBED) GLUCOSE BEDSIDE [id number] 11:59:00 Test Item Value Reference Range Interpretation Comments GLUCOSE BEDSIDE TESTING (test code 315 mg/dL 70-110 H = GLUBED) GLUCOSE BEDSIDE [id number] 07:56:00 Test Item Value Reference Range Interpretation Comments GLUCOSE BEDSIDE TESTING (test code 383 mg/dL 70-110 H = GLUBED) Novel Coronavirus 07:44:00 Test Item Value Reference Range Interpretation Comments Novel Coronavirus Negative Negative Positive r esults are 2019 Inhouse (test indicativ e of the presence code = [id number]) ofSARS-CoV -2 RNA, clinical correlation wit h [...] indicativ e of the presence code = [id number]) ofSARS-CoV -2 RNA, clinical correlation wit h [...] for the identification of SARS-CoV-2 RNA usingthe Rack[employer]ivity M2000 Sy stem under the FDA Emergen cy UseAuthorizatio n. The testing is perf ormed by mj d in the procedures for the R[employer]ivity M2000 molecular diagnostic SARS-CoV-2 assa y in vitro. Testing Criteria: Shortness of BreathCBC W/AUTO [id number] 07:13:00 Test Item Value Reference Range Interpretation [...] CONSISTA NT WITH AUTO DIFFERENTIAL. CBC W/AUTO [id number] 06:49:00 Test Item Value Reference Range Interpretation [...] code = DIFF/SCN CRITERIA MDIFF) BASIC METABOLIC [id number] 06:46:00 Test Item Value Reference Range Interpretation [...] CA) 7.9 MG/DL 8.5-10.1 L GLUCOSE BEDSIDE [id number] 20:12:00 Test Item Value Reference Range Interpretation Comments GLUCOSE BEDSIDE TESTING (test code 221 mg/dL 70-110 H = GLUBED) GLUCOSE BEDSIDE [id number] 16:43:00 Test Item Value Reference Range Interpretation Comments GLUCOSE BEDSIDE TESTING (test code 288 mg/dL 70-110 H = GLUBED) [id number] 16:21:00 Test Item Value Reference Range Interpretation [...] yby method. Completed by Nursing: NOGLUCOSE BEDSIDE [id number] 12:08:00 Test Item Value Reference Range Interpretation Comments GLUCOSE BEDSIDE TESTING (test code 200 mg/dL 70-110 H = GLUBED) GLUCOSE BEDSIDE [id number] 08:06:00 Test Item Value Reference Range Interpretation Comments GLUCOSE BEDSIDE TESTING (test code 186 mg/dL 70-110 H = GLUBED) COMPREHENSIVE METABOLIC [id number] 07:03:00 Test Item Value Reference Range Interpretation [...] 45-117 H TOTAL (test code = ALKP) [id number] 07:03:00 Test Item Value Reference Range Interpretation Comments MAGNESIUM (test code = MAG) 1.9 MG/DL 1.8-2.4 N CBC W/AUTO [id number] 06:35:00 Test Item Value Reference Range Interpretation [...] = NO DIFF/SCN CRITERIA MDIFF) GLUCOSE BEDSIDE [id number] 19:53:00 Test Item Value Reference Range Interpretation Comments GLUCOSE BEDSIDE TESTING (test code 303 mg/dL 70-110 H = GLUBED) GLUCOSE BEDSIDE [id number] 17:11:00 Test Item Value Reference Range Interpretation Comments GLUCOSE BEDSIDE TESTING (test code 233 mg/dL 70-110 H = GLUBED)
[2019-12-09 06:06] LABS: Absolute Lymphocytes (CBC) 0.7 K/uL (0.7-4.9); Basophils % 1.2 % (0-1.3); Hematocrit 35.9 % (36.0-45.0); Lymphocytes % 11.4 % (15.3-44.8); MPV 8.1 fL (7.6-11.3); RBC Red Blood Cell Count 4.09 M/uL (3.86-4.86)
[2019-12-09] MEDS ORDERED: FUROSEMIDE 40 MG/4 ML VIAL ONE (06:10)
[2019-12-09 06:16] LABS: Protime INR 1.26
[2019-12-09 06:32] LABS: ALT/SGPT 17 U/L (12-78); AST/SGOT 20 U/L (15-37); Albumin 3.2 g/dL (3.4-5.0); Alkaline Phosphatase 150 U/L (45-117); BUN Blood Urea Nitrogen 20 mg/dL (7-18); Bicarbonate 26 mmol/L (21-32); Bilirubin Direct 0.3 mg/dL (0-0.2); Bilirubin Total 0.7 mg/dL (0.2-1.0); CKMB Creatine Kinase MB < 1.0 ng/mL (0.3-3.6); Creatine Phosphokinase 85 U/L (26-192); Glucose Level 383 mg/dL (74-106); Lipase 166 U/L (73-393); Magnesium 1.9 mg/dL (1.8-2.4); NT PRO-BNP 2352 pg/mL (<125); Potassium 3.7 mmol/L (3.5-5.1); Protein, Total 7.3 g/dL (6.4-8.2); Sodium Level 137 mmol/L (136-145); Troponin (Emerg Dept Use Only) < 0.02 ng/mL (0.0-0.045)
[2019-12-09] MEDS ORDERED: ONDANSETRON 4 MG/2 ML VIAL ONE (07:19)
[2019-12-09] MEDS ORDERED: LORazepam 2 MG/ML VIAL ONE (08:06)
--- NOTE | 2019-12-09 09:29 | RAD REPORT ---
EXAM DESCRIPTION: CT - Chest For Pe Angio - 12/09/2019 9:11 am CLINICAL HISTORY: Chest pain. SOB COMPARISON: No comparisons TECHNIQUE: CT angiogram of the pulmonary arteries was performed with MIP. All CT scans are performed using dose optimization technique as appropriate and may include automated exposure control or mA/KV adjustment according to patient size. FINDINGS: No evidence of pulmonary thromboembolism. No acute aortic finding demonstrated. Cardiomegaly is noted. Mild interstitial pulmonary edema is seen bilaterally. No significant pericardial or pleural fluid. No concerning bony finding. IMPRESSION: No evidence of pulmonary thromboembolism. Mild to moderate CHF.
--- NOTE | 2019-12-09 09:40 | ER ---
Nurse's Notes [facility] Name: Kandice Elizabeth Age: 64 yrs Sex: Female : 1955 Arrival Date: 12/09/2019 Time: 05:08 Bed 6 Private MD: Diagnosis: Unspecified combined systolic (congestive) and diastolic (congestive) heart failure;Pulmonary edema;Chronic obstructive pulmonary disease, unspecified;Dyspnea, unspecified Presentation: 12/08 05:15 Chief complaint: EMS states: they were toned out for report of pt with SOB pt was RA bb 96% O2 sats on their arrival. Coronavirus screen: fever, shortness of breath. Ebola Screen: No symptoms or risks identified at this time. Initial Sepsis Screen: Does the patient meet any 2 criteria? No. Patient's initial sepsis screen is negative. Does the patient have a suspected source of infection? No. Patient's initial sepsis screen is negative. Risk Assessment: Do you want to hurt yourself or someone else? Patient reports no desire to harm self or others. Onset of symptoms was December 08, 2019. 05:15 Method Of Arrival: EMS: [facility] bb 05:15 Acuity: COLBY 3 bb Historical: - Allergies: 05:24 No Known Allergies; bb - Home Meds: 05:24 Advair Diskus 250-50 mcg/dose Inhl dsdv 1 puff 2 times per day [Active]; Eliquis 5 mg bb Oral tab 1 tab 2 times per day [Active]; furosemide 40 mg Oral tab 1 tab 2 times per day [Active]; metoprolol tartrate 25 mg oral tab 1 tab 2 times per day [Active]; pramipexole 0.25 mg Oral tab 1 tab daily [Active]; trazodone 50 mg Oral tab 1 tab nightly [Active]; venlafaxine 150 mg oral cp24 1 cap once daily [Active]; glipizide 2.5 mg Oral tr24 once daily [Active]; cetirizine 10 mg oral tab 1 tab once daily [Active]; pantoprazole 40 mg oral TbEC 1 tab once daily [Active]; Potassium Chloride Oral [Active]; Novolin N 100 unit/mL Sub-Q susp [Active]; Novolin R 40 units, SUBQ twice daily Sub-Q [Active]; - PMHx: 05:24 Atrial Fib; Brain bleed; CHF; COPD; Diabetes - IDDM; Hypertension; CAD; bb - PSHx: 05:24 bypass surgery; Heart stents; Carpal Tunnel Repair; bb - Immunization history:: Adult Immunizations unknown. - Social history:: Smoking status: unknown. Screenin:21 Abuse screen: Denies threats or abuse. Denies injuries from another. Nutritional mg2 screening: No deficits noted. Tuberculosis screening: No symptoms or risk factors identified. Fall Risk IV access (20 points). Assessment: 05:21 General: Appears in no apparent distress. comfortable, Behavior is calm, cooperative. mg2 Pain: Denies pain. Neuro: Level of Consciousness is awake, alert, obeys commands, Oriented to person, place, time, situation. Cardiovascular: Rhythm is atrial fibrillation. Respiratory: Reports shortness of breath Airway is patent Respiratory effort is even, unlabored, Respiratory pattern is regular, symmetrical, GI: : No signs and/or symptoms were reported regarding the genitourinary system. EENT: No signs and/or symptoms were reported regarding the EENT system. Derm: Skin is intact, is healthy with good turgor, Skin is pink, warm \T\ dry. normal. Musculoskeletal: Circulation, motion, and sensation intact. Capillary refill < 3 seconds. 06:10 Reassessment: Patient and/or family updated on plan of care and expected duration. Pain ea level reassessed. Patient is alert, oriented x 3, equal unlabored respirations, skin warm/dry/pink. 07:15 Reassessment: Patient appears in no apparent distress at this time. Patient and/or hb family updated on plan of care and expected duration. Pain level reassessed. Breathing is mildly labored, SpO2 >95% on RA. 08:30 Reassessment: Patient appears in no apparent distress at this time. No changes from hb previously documented assessment. Patient and/or family updated on plan of care and expected duration. Pain level reassessed. 09:25 Reassessment: Patient appears in no apparent distress at this time. No changes from hb previously documented assessment. Patient and/or family updated on plan of care and expected duration. Pain level reassessed. 10:33 Reassessment: Dr Mukherjee at the bedside. sv Vital Signs: 05:15 BP 116 / 76; Pulse 87; Resp 20 S; Temp 98.7(O); Pulse Ox 95% on R/A; Weight 97.52 kg bb (R); Height 5 ft. 0 in. (152.40 cm) (R); 05:33 BP 121 / 74; Pulse 91; Resp 19; Pulse Ox 96% on R/A; ea 07:24 BP 139 / 98; Pulse 100; Resp 19; Pulse Ox 97% ; sv 09:25 BP 121 / 99; Pulse 100; Resp 22; Pulse Ox 95% on R/A; hb 05:15 Body Mass Index 41.99 (97.52 kg, 152.40 cm) bb ED Course: 05:08 Patient arrived in ED. cl3 05:11 Dung Brock MD is Attending Physician. mh7 05:18 Triage completed. bb 05:20 Merrill Montiel, MARIBELL is Primary Nurse. mg2 05:20 Patient has correct armband on for positive identification. monitoring tech on. Pulse mg2 ox on. NIBP on. Door closed. Noise minimized. Warm blanket given. 05:22 No provider procedures requiring assistance completed. mg2 05:24 Arm band placed on Patient placed in an exam room, on a stretcher, on ekg monitor tech, bb on pulse oximetry. 05:25 Missed attempt(s): 22 gauge in right hand. Bleeding controlled, band aid applied, ea catheter tip intact. 05:35 Inserted saline lock: 22 gauge in left upper arm, using aseptic technique. Blood mg2 collected. 05:54 XRAY CXR (1 view) In Process Unspecified. EDMS 07:36 Attending Physician role handed off by Dung Brock MD rn 07:36 Shaan Mukherjee MD is Attending Physician. rn 08:20 Inserted saline lock: 22 gauge in right forearm, using aseptic technique. ,using sv aseptic technique. diffusics Flushed right forearm with 5 ml normal saline. 09:11 CT Chest For PE Angio In Process Unspecified. EDMS 09:39 Neptali Mukherjee MD is Hospitalizing Provider. rn 11:17 Awaiting bed assignment. sv Administered Medications: 06:06 Drug: Lasix 40 mg Route: IVP; Site: left hand; ea 07:02 Follow up: Response: No adverse reaction hb 07:20 Drug: Insulin Regular Human 10 units {Co-Signature: sv (Melania Diehl RN).} Route: hb Sub-Q; Site: left upper arm; 08:20 Follow up: Response: No adverse reaction; Blood sugar is lowered hb 08:09 CANCELLED (Duplicate Order): Valium 2 mg PO once rn 08:20 Drug: Ativan 0.5 mg Route: IVP; Site: right antecubital; hb 08:40 Follow up: Response: No adverse reaction hb 09:57 Drug: SOLU-Medrol 125 mg Route: IVP; Site: right forearm; sv 09:57 Drug: Xopenex (3) 1.25 mg Route: Inhalation; sv Outcome: 09:40 Decision to Hospitalize by Provider. rn 12:03 Patient left the ED. sv Signatures: Dispatcher [employer] EDMS Melania Diehl RN RN sv Ballard, Brenda, RN RN bb Nieto, Roman, MD MD rn Baxter, Heather, RN RN hb Antunez, Elena, RN RN ea Gardose, Michele, RN RN mg2 Lewis, Charde 3 Dung Brock MD MD 7 Melania Diehl RN sv Corrections: (The following items were deleted from the chart) 09:25 07:15 Reassessment: Patient appears in no apparent distress at this time. No changes hb from previously documented assessment. Patient and/or family updated on plan of care and expected duration. Pain level reassessed. hb
--- NOTE | 2019-12-09 09:40 | EDPHYS ---
Physician Documentation [facility] Name: Kandice Elizabeth Age: 64 yrs Sex: Female : 1955 Arrival Date: 12/09/2019 Time: 05:08 Bed 6 Private MD: ED Physician Shaan Mukherjee HPI: 12/08 05:44 This 64 yrs old Female presents to ER via EMS with complaints of Shortness Of mh7 Breath. 05:44 The patient has shortness of breath with light activity. Onset: The symptoms/episode mh7 began/occurred 5 day(s) ago. Duration: The symptoms are intermittent, with no pattern. The patient's shortness of breath is aggravated by exertion, is alleviated by sitting up. Associated signs and symptoms: Pertinent negatives: chest pain, non-productive cough, productive cough, diaphoresis, dizziness, fever, hemoptysis, loss of consciousness, nausea, numbness in extremities, visual changes, vomiting. Severity of symptoms: At their worst the symptoms were moderate 3 day(s) ago, in the emergency department the symptoms have improved moderately. The patient has experienced similar episodes in the past, multiple times. Historical: - Allergies: 05:24 No Known Allergies; bb - Home Meds: 05:24 Advair Diskus 250-50 mcg/dose Inhl dsdv 1 puff 2 times per day [Active]; Eliquis 5 mg bb Oral tab 1 tab 2 times per day [Active]; furosemide 40 mg Oral tab 1 tab 2 times per day [Active]; metoprolol tartrate 25 mg oral tab 1 tab 2 times per day [Active]; pramipexole 0.25 mg Oral tab 1 tab daily [Active]; trazodone 50 mg Oral tab 1 tab nightly [Active]; venlafaxine 150 mg oral cp24 1 cap once daily [Active]; glipizide 2.5 mg Oral tr24 once daily [Active]; cetirizine 10 mg oral tab 1 tab once daily [Active]; pantoprazole 40 mg oral TbEC 1 tab once daily [Active]; Potassium Chloride Oral [Active]; Novolin N 100 unit/mL Sub-Q susp [Active]; Novolin R 40 units, SUBQ twice daily Sub-Q [Active]; - PMHx: 05:24 Atrial Fib; Brain bleed; CHF; COPD; Diabetes - IDDM; Hypertension; CAD; bb - PSHx: 05:24 bypass surgery; Heart stents; Carpal Tunnel Repair; bb - Immunization history:: Adult Immunizations unknown. - Social history:: Smoking status: unknown. ROS: 05:44 Constitutional: Negative for fever, chills, and weight loss, Eyes: Negative for injury, mh7 pain, redness, and discharge, ENT: Negative for injury, pain, and discharge, Neck: Negative for injury, pain, and swelling, Cardiovascular: Negative for chest pain, palpitations, and edema, Abdomen/GI: Negative for abdominal pain, nausea, vomiting, diarrhea, and constipation, Back: Negative for injury and pain, : Negative for injury, bleeding, discharge, and swelling, MS/Extremity: Negative for injury and deformity, Skin: Negative for injury, rash, and discoloration, Neuro: Negative for headache, weakness, numbness, tingling, and seizure, Psych: Negative for depression, anxiety, suicide ideation, homicidal ideation, and hallucinations, Allergy/Immunology: Negative for hives, rash, and allergies, Endocrine: Negative for neck swelling, polydipsia, polyuria, polyphagia, and marked weight changes, Hematologic/Lymphatic: Negative for swollen nodes, abnormal bleeding, and unusual bruising. Exam: 05:44 Constitutional: This is a well developed, well nourished patient who is awake, alert, mh7 and in no acute distress. Head/Face: Normocephalic, atraumatic. Eyes: Pupils equal round and reactive to light, extra-ocular motions intact. Lids and lashes normal. Conjunctiva and sclera are non-icteric and not injected. Cornea within normal limits. Periorbital areas with no swelling, redness, or edema. Neck: Trachea midline, no thyromegaly or masses palpated, and no cervical lymphadenopathy. Supple, full range of motion without nuchal rigidity, or vertebral point tenderness. No Meningismus. Chest/axilla: Normal chest wall appearance and motion. Nontender with no deformity. No lesions are appreciated. 05:44 Abdomen/GI: Soft, non-tender, with normal bowel sounds. No distension or tympany. No guarding or rebound. No evidence of tenderness throughout. Back: No spinal tenderness. No costovertebral tenderness. Full range of motion. Skin: Warm, dry with normal turgor. Normal color with no rashes, no lesions, and no evidence of cellulitis. MS/ Extremity: Pulses equal, no cyanosis. Neurovascular intact. Full, normal range of motion. Neuro: Awake and alert, GCS 15, oriented to person, place, time, and situation. Cranial nerves II-XII grossly intact. Motor strength 5/5 in all extremities. Sensory grossly intact. Cerebellar exam normal. Normal gait. Psych: Awake, alert, with orientation to person, place and time. Behavior, mood, and affect are within normal limits. 05:44 Cardiovascular: Rate: normal, Rhythm: irregularly irregular, Pulses: no pulse deficits are appreciated, Heart sounds: normal, normal S1and S2, Edema: is not appreciated, JVD: is not appreciated. 05:44 Respiratory: the patient does not display signs of respiratory distress, Respirations: normal, Breath sounds: rhonchi, that are mild, are scattered, Respiratory rate: 18 05:48 ECG was reviewed by the Attending Physician. [facility] Vital Signs: 05:15 BP 116 / 76; Pulse 87; Resp 20 S; Temp 98.7(O); Pulse Ox 95% on R/A; Weight 97.52 kg bb (R); Height 5 ft. 0 in. (152.40 cm) (R); 05:33 BP 121 / 74; Pulse 91; Resp 19; Pulse Ox 96% on R/A; ea 07:24 BP 139 / 98; Pulse 100; Resp 19; Pulse Ox 97% ; sv 09:25 BP 121 / 99; Pulse 100; Resp 22; Pulse Ox 95% on R/A; hb 05:15 Body Mass Index 41.99 (97.52 kg, 152.40 cm) bb MDM: 05:38 Patient medically screened. [facility] 07:06 Transition of care: After a detail discussion of the patient's case, care is [facility] transferred to Shaan Mukherjee MD. 07:12 ED course: Signed out to me by Dr. Brock, pending ct chest for PE, reports CXR looks rn ok, his plan was to dc home if CT normal. Will reeval.. 09:38 Differential diagnosis: CHF exacerbation, Pneumothorax pulmonary edema, Pulmonary rn Embolism. Data reviewed: vital signs, nurses notes, lab test result(s), EKG, radiologic studies, CT scan, plain films, and as a result, I will admit patient. Counseling: I had a detailed discussion with the patient and/or guardian regarding: the historical points, exam findings, and any diagnostic results supporting the discharge/admit diagnosis, lab results, radiology results, the need for further work-up and treatment in the hospital. Response to treatment: There is no appreciated change of the patient's symptoms at this time, and as a result, I will admit patient. Admission orders: after a detailed discussion of the patient's condition and case, the admit orders are written by me. ED course: Pt still tachypneic, at times with certain positioning, appears cyanotic, CT PE neg for PE, + moderate pulmonary edema, will admit to hospitalist service. . 12/08 05:27 Order name: Blood Culture Adult (2) 12/08 05:27 Order name: BMP; Complete Time: 06:53 12/08 05:27 Order name: CBC with Diff; Complete Time: 06:28 12/08 05:27 Order name: Ckmb; Complete Time: 06:53 12/08 05:27 Order name: CPK; Complete Time: 06:53 12/08 05:27 Order name: D-Dimer; Complete Time: 06:28 12/08 05:27 Order name: Hepatic Function; Complete Time: 06:53 12/08 05:27 Order name: Lipase; Complete Time: 06:53 12/08 05:27 Order name: Magnesium; Complete Time: 06:53 12/08 05:27 Order name: NT PRO-BNP; Complete Time: 06:53 12/08 05:27 Order name: PT-INR; Complete Time: 06:28 12/08 05:27 Order name: Ptt, Activated; Complete Time: 06:28 12/08 05:27 Order name: Troponin (emerg Dept Use Only); Complete Time: 06:53 12/08 08:31 Order name: Glucose, Ancillary Testing; Complete Time: 08:36 EDMS 12/08 05:27 Order name: XRAY CXR (1 view) 12/08 05:27 Order name: EKG; Complete Time: 05:28 12/08 05:27 Order name: Cardiac monitoring; Complete Time: 05:28 12/08 05:27 Order name: EKG - Nurse/Tech; Complete Time: 05:28 12/08 05:27 Order name: IV Saline Lock; Complete Time: 05:39 12/08 05:27 Order name: Labs collected and sent; Complete Time: 05:29 12/08 05:27 Order name: O2 Per Protocol; Complete Time: 05:29 12/08 06:58 Order name: CT Chest For PE Angio; Complete Time: 09:41 mh7 12/08 11:05 Order name: CONS Physician Consult EDLA 12/08 05:27 Order name: O2 Sat Monitoring; Complete Time: 05:29 12/08 06:55 Order name: Urine Dipstick-Ancillary (obtain specimen); Complete Time: 07:25 mh7 EC:48 Rate is 97 beats/min. Rhythm is irregularly irregular, A fib. Right axis deviation mh7 noted. IN interval is normal. QRS interval is normal. QT interval is normal. No Q waves. T waves are Inverted in leads II, III, aVF, V4, V5, V6. No ST changes noted. Clinical impression: Atrial Fibrillation. Administered Medications: 06:06 Drug: Lasix 40 mg Route: IVP; Site: left hand; ea 07:02 Follow up: Response: No adverse reaction hb 07:20 Drug: Insulin Regular Human 10 units {Co-Signature: sv (Melania Diehl RN).} Route: hb Sub-Q; Site: left upper arm; 08:20 Follow up: Response: No adverse reaction; Blood sugar is lowered hb 08:09 CANCELLED (Duplicate Order): Valium 2 mg PO once rn 08:20 Drug: Ativan 0.5 mg Route: IVP; Site: right antecubital; hb 08:40 Follow up: Response: No adverse reaction hb 09:57 Drug: SOLU-Medrol 125 mg Route: IVP; Site: right forearm; sv 09:57 Drug: Xopenex (3) 1.25 mg Route: Inhalation; sv Disposition: 12/09/19 09:40 Hospitalization ordered by Neptali Mukherjee for Inpatient Admission. Preliminary diagnosis are Unspecified combined systolic (congestive) and diastolic (congestive) heart failure, Pulmonary edema, Chronic obstructive pulmonary disease, unspecified, Dyspnea, unspecified. - Bed requested for Telemetry/MedSurg (Inpatient). - Status is Inpatient Admission. sv - Condition is Stable. - Problem is new. - Symptoms are unchanged. Signatures: Dispatcher [employer] EDLA Lori Davidson RN RN kl Verde, Stephanie, RN RN sv Ballard, Brenda, Shaan Villa RN, MD MD rn Baxter, Heather, Irma Mendoza RN, RN RN ea Holmes, Maurice, MD MD 7 Melania goldberg Corrections: (The following items were deleted from the chart) 08: 07:52 Valium 2 mg PO once ordered. rn rn 11: 10:42 Arterial Blood Gas+RC.LAB.BRZ ordered. [facility] 11:18 09:40 Hospitalization Ordered by Neptali Mukherjee MD for Inpatient Admission. Preliminary diagnosis is Unspecified combined systolic (congestive) and diastolic (congestive) heart failure; Pulmonary edema; Chronic obstructive pulmonary disease, unspecified; Dyspnea, unspecified. Bed requested for Telemetry/MedSurg (Inpatient). Status is Inpatient Admission. Condition is Stable. Problem is new. Symptoms are unchanged. rn 12:03 11:18 12/09/2019 09:40 Hospitalization Ordered by Neptali Mukherjee MD for Inpatient sv Admission. Preliminary diagnosis is Unspecified combined systolic (congestive) and diastolic (congestive) heart failure; Pulmonary edema; Chronic obstructive pulmonary disease, unspecified; Dyspnea, unspecified. Bed requested for Telemetry/MedSurg (Inpatient). Status is Inpatient Admission. Condition is Stable. Problem is new. Symptoms are unchanged. kl
[2019-12-09] MEDS ORDERED: METHYLPREDNISOLONE 125 MG INJ ONE (09:52)
[2019-12-09] MEDS ORDERED: IPRATROPIUM BROM 0.5MG/2.5ML ONE (09:53)
[2019-12-09] MEDS ORDERED: LEVALBUTEROL 1.25 MG/3 ML NEB ONE (09:53)
--- NOTE | 2019-12-09 11:22 | P.HP ---
Certification for Inpatient Patient admitted to: Inpatient With expected LOS: >2 Midnights Practitioner: I am a practitioner with admitting privileges, knowledge of patient current condition, hospital course, and medical plan of care. Services: Services provided to patient in accordance with Admission requirements found in Title 42 Section 412.3 of the Code of Federal Regulations Patient History Date of Service: 12/09/19 Reason for admission: CHF exacerbation, COPD exacerbation History of Present Illness: Patient with some confusion and poor historian. HPI was obtained from ED physician and patient's significant other (also a poor historian). 64-year-old recently moved here in the past year from [place] and has not seen a doctor presents with progressively worsening shortness of breath. She apparently ran out of her inhalers and has been wheezing more. After further discussion was discovered that patient was hospitalized in [place] for 1 week for similar symp toms, discharged ~1 week ago. The significant other does not know that her entire past medical history, but states she has possible history of CHF, COPD, DM 2, HTN, restless leg syndrome. In the ED she was found to have some slight confusion, labwork notable for D- dimer: 1125, glucose: 3 3, BNP: 2352, negative troponin. Her SpO2: 94% on room air. Upon my arrival to the ED, patient seemed a little bit more lethargic and confused. She reportedly received low-dose Ativan earlier. An ABG was done which showed hypoxemia (O2: 64). Allergies amoxicillin Adverse Reaction (Verified 12/09/19 12:49) Rash Home Medications: Apixaban [Eliquis] 5 mg PO BID 12/09/19 Apixaban [Eliquis] 5 mg PO DAILY 12/09/19 Cetirizine HCl [Allergy Relief] 10 mg PO DAILY 12/09/19 Fluticasone/Salmeterol [Advair 250-50 Diskus] 1 inh IH DAILY 12/09/19 Furosemide [Lasix] 40 mg PO BIDL 12/09/19 Glipizide [Glipizide ER] 2.5 mg PO DAILY 12/09/19 Metoprolol Tartrate [Lopressor] 25 mg PO BID 12/09/19 Pantoprazole Sodium [Protonix] 20 mg PO 0600 12/09/19 Potassium Gluconate [Potassium] 99 mg PO DAILY 12/09/19 Pramipexole [Mirapex] 0.25 mg PO DAILY 12/09/19 Trazodone HCl 50 mg PO BEDTIME PRN 12/09/19 Venlafaxine HCl [Venlafaxine HCl ER] 150 mg PO DAILY 12/09/19 - Past Medical/Surgical History -: DM 2 -: HTN -: COPD -: Restless leg syndrome -: Cardiac surgery -: Brain surgery for aneurysm - Family History Family History: Reviewed- Non-Contributory - Social History Smoking Status: Unknown if ever smoked Alcohol use: No CD- Drugs: No Place of Residence: Home Review of Systems is unable to be obtained Physical Examination - Physical Exam General: Confused (Seems to understand what I say, slight slurring of speech), Obese HEENT: PERRLA, Sclerae nonicteric Neck: No LAD Respiratory: Expiratory wheezes (Diffuse) Cardiovascular: Regular rate/rhythm, Normal S1 S2 Gastrointestinal: Soft and benign, Non-distended, No tenderness Musculoskeletal: No erythema, No tenderness Integumentary: No rashes Neurological: Other (Constantly moving lower extremities), Abnormal speech (Slight slurring, difficult to understand at times) - Studies Laboratory Data (last 24 hrs) 12/09/19 05:55: PT 14.8 H, INR 1.26, APTT 32.4 12/09/19 05:55: WBC 6.6, Hgb 11.7 L, Hct 35.9 L, Plt Count 178 12/09/19 05:55: Sodium 137, Potassium 3.7, BUN 20 H, Creatinine 1.13, Glucose 383 H, Magnesium 1.9, Total Bilirubin 0.7, AST 20, ALT 17, Alkaline Phosphatase 150 H, Lipase 166 Assessment and Plan - Advance Directives Does patient have a Living Will: No Does patient have a Durable POA for Healthcare: No Physician Review Additional Text: Acute COPD exacerbation Acute CHF exacerbation, unknown systolic vs diastolic -CT chest: No evidence of PE, mild interstitial pulmonary edema seen bilaterally, positive cardiomegaly, no significant pericardial or pleural fluid -significant other unable to provide any more history on what was done at during her recent hospitalization -will treat with Lasix IV , monitor intake and output -will treat with steroids, nebulizers for COPD exacerbation -cardiology and pulmonology consulted, patient has not established any care here -TTE ordered -confirming restart home medications Restless leg syndrome -restart home medication DM2 -insulin sliding scale, confirming restart home medications Unclear why patient is on Eliquis, significant other and patient unable to answer this at this time, will continue. Dispo: anticipate hospitalization > 2 days Time Spent Managing Pts Care (In Minutes): 55
[2019-12-09] MEDS: IPRATROPIUM BROM 0.5MG/2.5ML NEB SCH ×2 (13:25→20:10)
[2019-12-09] MEDS: ALBUTEROL 2.5 MG/3 ML NEB SOL NEB SCH ×2 (13:25→20:10)
[2019-12-09] MEDS: INSULIN -REGULAR HUMAN 50 UNIT/0.5 ML ML SQ SCH ×3 (14:12→21:00)
[2019-12-09 15:33] VITALS: BMI 42.0
[2019-12-09] MEDS: PRAMIPEXOLE 0.25 MG TAB PO SCH (15:48)
[2019-12-09] MEDS ORDERED: PNEUMOCOCCAL VACCINE 0.5 ML IMVAC ONE (16:00)
[2019-12-09] MEDS: ACETAMINOPHEN 500 MG TAB PO PRN (16:28)
[2019-12-09] MEDS: FUROSEMIDE 40 MG/4 ML VIAL IV SCH (16:56)
[2019-12-09] MEDS: METHYLPREDNISOLONE 40 MG INJ IV SCH (17:00)
--- NOTE | 2019-12-09 17:37 | RAD REPORT ---
EXAM DESCRIPTION: XR Chest, 1 View CLINICAL HISTORY: SOB TECHNIQUE: Frontal view of the chest. COMPARISON: 11/06/2019 FINDINGS: Lungs: Shallow inspiration with mild basilar vascular crowding noted. No consolidation . Pleural space: No pneumothorax or pleural effusion. Heart: Stable enlarged cardiac shadow. Mediastinum: No abnormality noted. Bones/joints: No osseous destruction or sclerosis noted. IMPRESSION: No acute findings in the chest. Electronically signed by: Kerri Castillo MD 12/09/2019 6:26 AM CDT Due to temporary technical issues with the PACS/Fluency reporting system, reports are being signed by the in house radiologist without review as a courtesy to ensure prompt reporting. The interpreting r adiologist is fully responsible for the content of the report.
[2019-12-09] MEDS: APIXABAN 5 MG TABLET PO SCH (23:14)
[2019-12-09] MEDS: METOPROLOL TAR 25 MG TAB PO SCH (23:14)
[2019-12-10] MEDS: ALBUTEROL 2.5 MG/3 ML NEB SOL NEB SCH ×3 (01:25→12:56)
[2019-12-10] MEDS: IPRATROPIUM BROM 0.5MG/2.5ML NEB SCH ×3 (01:25→12:56)
[2019-12-10] MEDS: METHYLPREDNISOLONE 40 MG INJ IV SCH ×2 (03:27→08:30)
[2019-12-10 05:40] LABS: Absolute Lymphocytes (CBC) 0.4 K/uL (0.7-4.9); Basophils % 0.2 % (0-1.3); Hematocrit 36.2 % (36.0-45.0); Lymphocytes % 6.3 % (15.3-44.8); MPV 8.8 fL (7.6-11.3); RBC Red Blood Cell Count 4.09 M/uL (3.86-4.86)
[2019-12-10 05:46] LABS: Albumin 3.1 g/dL (3.4-5.0); Bilirubin Total 0.7 mg/dL (0.2-1.0); Potassium 4.2 mmol/L (3.5-5.1); Protein, Total 7.5 g/dL (6.4-8.2)
[2019-12-10 05:47] LABS: Magnesium 2.1 mg/dL (1.8-2.4)
[2019-12-10] MEDS: PANTOPRAZOLE 40MG TABLET PO SCH (06:00)
[2019-12-10] MEDS ORDERED: HOME MED 1 EA UNK (Pantoprazole Sodium [Protonix] 20 MG) PO SCH (06:00)
[2019-12-10 06:33] LABS: Blood Morphology Comment NOT SEEN (NOT SEEN); Platelet Estimate DECR; White Blood Cell Scan OK (OK)
[2019-12-10] MEDS: INSULIN -REGULAR HUMAN 50 UNIT/0.5 ML ML SQ SCH ×6 (08:18→21:00)
[2019-12-10] MEDS ORDERED: D50W 25 GM/50 ML SYRINGE/VIAL IV PRN (08:20)
[2019-12-10] MEDS ORDERED: GLUCAGON 1 MG/VIAL IM PRN (08:20)
[2019-12-10] MEDS: FUROSEMIDE 40 MG/4 ML VIAL IV SCH ×2 (08:23→17:00)
[2019-12-10] MEDS: METOPROLOL TAR 25 MG TAB PO SCH ×2 (08:24→21:03)
[2019-12-10] MEDS: PRAMIPEXOLE 0.25 MG TAB PO SCH (08:25)
[2019-12-10] MEDS: VENLAFAXINE HCL XR 75 MG CAP PO SCH (08:25)
[2019-12-10] MEDS: APIXABAN 5 MG TABLET PO SCH ×2 (08:25→21:03)
[2019-12-10] MEDS: CETIRIZINE HCL 5 MG TABLET PO SCH (08:26)
[2019-12-10] MEDS ORDERED: [UNRECOGNIZED DRUG - REMARK] PO SCH (09:00)
[2019-12-10] MEDS ORDERED: HOME MED 1 EA UNK (Venlafaxine Hcl [Venlafaxine Hcl Er] 150 MG) PO SCH (09:00)
--- NOTE | 2019-12-10 09:55 | P.PN ---
Subjective Date of Service: 12/10/19 Chief Complaint: CHF exacerbation, COPD exacerbation Subjective: Improving (Awake, alert and oriented. Reports his breathing is a little bit more deeper, and feels her legs are not as tight. Does not remember anything from yesterday) Physical Examination - Vital Signs Temperature: 97.7 F Blood Pressure: 153/80 Pulse: 105 Respirations: 18 Pulse Ox (%): 96 - Physical Exam General: Alert, Oriented x3, Obese HEENT: Mucous membr. moist/pink, Sclerae nonicteric Neck: Supple Respiratory: Diminished (at bases), Expiratory wheezes (diffusely), Other (brreathing heavily on 2LNC) Cardiovascular: Regular rate/rhythm, Edema (2+ to thighs) Gastrointestinal: Soft and benign, Non-distended, No tenderness Musculoskeletal: No tenderness Integumentary: Other (small skin tears/abrasions on b/l lower extremities, no purulent drainage) Neurological: Normal speech, Normal affect Assessment & Plan Physician Review Additional Text: Acute COPD exacerbation Acute CHF exacerbation, unknown systolic vs diastolic -CT chest: No evidence of PE, mild interstitial pulmonary edema seen bilaterally, positive cardiomegaly, no significant pericardial or pleural fluid -Pt more alert today, reports was in [facility] ~1.5 weeks ago for similar symptoms -continue IV lasix, edema and breathing improving -will treat with steroids, nebulizers for COPD exacerbation -cardiology and pulmonology consulted, patient has not established any care here -TTE ordered Restless leg syndrome -continue home pramipexole DM2 -insulin sliding scale -hyperglycemic - worsened by steroids -restart home insulin - (Insulin N - 30units in AM, Insulin R - 20-40 units ACHS) Afib -continue home eliquis Dispo: anticipate hospitalization > 2 days discussed importance of establishing with a PCP after discharge Time Spent Managing Pts Care (In Minutes): 35
[2019-12-10] MEDS: NPH (HUMAN) 100 UNITS/ML INSULIN SQ SCH (10:23)
[2019-12-10] MEDS ORDERED: INSULIN -REGULAR HUMAN 50 UNIT/0.5 ML ML SQ ONE (12:30)
--- NOTE | 2019-12-10 12:50 | CON ---
Date of Consultation: 12/09/2019 Reason For Consultation: Congestive heart failure. History Of Present Illness: Ms. Elizabeth is a woman who normally resides in [place]. She is here now, has a history of congestive heart failure, COPD, atrial fibrillation. She has had CAD status post C ABG and stent. She has hypertension, dyslipidemia, history of HOLISTIC NUTRITIONIST hemorrhage in the past on warfarin . She is not on warfarin now. She is taking Eliquis. Came in with CHF exacerbation. Denied any ch est pain, nausea, vomiting, diaphoresis. Has had PND, orthopnea, pedal edema, and shortness of breat h, did not have any palpitations or syncope. Denied fever or chills. Past Medical History: As stated above. Allergies: SHE IS ALLERGIC TO AMOXICILLIN. Review of Systems: Negative. Social History: Negative. Family History: Noncontributory. Medications: Include metformin, Eliquis, Lasix, glipizide, metoprolol, Protonix, venlafaxine, inhale rs, insulin. Physical Examination: General: She weighed 215 pounds. She was in mild respiratory distress. Vital Signs: Her blood pressure is 164/92. She was in sinus tach at 103. HEENT: Negative. Neck: Supple without bruit, lymphadenopathy, JVD, or thyromegaly. Chest: Reveals some rales at both bases. Cardiac: Revealed tachycardia with S4 gallops. No murmurs or rubs. Abdomen: Obese, but benign. Extremities: Revealed 1+ edema. Diagnostic Data: BNP was 2352. Chest x-ray was negative. CTA showed CHF. D-dimer was 1125. Gluco se was 270. Troponin was negative. Impression And Plan: 1.Acute on chronic diastolic congestive heart failure. She is on Lasix IV b.i.d. She is on metopro lol. She should be on fluid restriction and salt restriction. We will see what her echocardiogram s hows prior to making further decisions. 2.Coronary artery disease, status post coronary artery bypass graft and stent that is stable. 3.Chronic obstructive pulmonary disease. 4.Paroxysmal atrial fibrillation. She is in sinus rhythm now. She is on Eliquis and metoprolol. 5.Hypertension, poorly controlled. 6.Diabetes. 7.History of HOLISTIC NUTRITIONIST hemorrhage, on warfarin. For now, we will check an echo. I think she will need an outpatient stress test eventually with the Lexiscan. She needs to be diuresed. Continue the beta b locker. I think I would increase the dose of the beta-jam because of her tachycardia and hyperte nsion. Continue fluid restriction and salt restriction. We will watch her I's and O's and wait crea tinine and electrolytes. YASMEEN/KISHA Voice ID: [id number] Report ID: [id number]
[2019-12-10] MEDS: ACETAMINOPHEN 500 MG TAB PO PRN (13:20)
--- NOTE | 2019-12-10 14:33 | P.CNS ---
Date of Consult: 12/10/19 Reason for Consult: Hypoxemia Chief Complaint: CHF exacerbation, COPD exacerbation History of Present Illness: Patient is 64 years of age with a history of congestive heart failure the was living in [place] INR moved here to [facility] or a [facility] he has been having progressive dyspnea for the past 6 months with a orthopnea lower extremity edema does not have home oxygen at home has nebulizers history of coronary artery disease does not smoke no history of obstructive sleep apnea patient has been tested for a denies any fever chills or cough is a did better since admission Allergies amoxicillin Adverse Reaction (Verified 12/09/19 12:49) Rash Home Medications: Apixaban [Eliquis] 5 mg PO BID 12/09/19 Apixaban [Eliquis] 5 mg PO DAILY 12/09/19 Cetirizine HCl [Allergy Relief] 10 mg PO DAILY 12/09/19 Fluticasone/Salmeterol [Advair 250-50 Diskus] 1 inh IH DAILY 12/09/19 Furosemide [Lasix] 40 mg PO BIDL 12/09/19 Glipizide [Glipizide ER] 2.5 mg PO DAILY 12/09/19 Metoprolol Tartrate [Lopressor] 25 mg PO BID 12/09/19 Pantoprazole Sodium [Protonix] 20 mg PO 0600 12/09/19 Potassium Gluconate [Potassium] 99 mg PO DAILY 12/09/19 Pramipexole [Mirapex] 0.25 mg PO DAILY 12/09/19 Trazodone HCl 50 mg PO BEDTIME PRN 12/09/19 Venlafaxine HCl [Venlafaxine HCl ER] 150 mg PO DAILY 12/09/19 - Past Medical/Surgical History Diabetic: Yes -: DM 2 -: HTN -: COPD -: Restless leg syndrome -: restless leg syndrome -: obst airway per signif other. -: CAD -: Cardiac surgery -: Brain surgery for aneurysm - Social History Smoking Status: Unknown if ever smoked Alcohol use: No CD- Drugs: No Caffeine use: Yes Place of Residence: Home Review of Systems General: Weakness Respiratory: Shortness of Breath Cardiovascular: Edema Physical Examination Temp Pulse Resp BP Pulse Ox 97.7 F 105 H 18 153/80 H 96 12/10/19 12:35 12/10/19 12:35 12/10/19 12:35 12/10/19 12:35 12/10/19 12:35 General: Alert, Oriented x3 Respiratory: Diminished, Crackles/rales, Rhonchi/gurgles Cardiovascular: Edema Gastrointestinal: Normal bowel sounds, Soft and benign Musculoskeletal: No clubbing, No contractures Integumentary: No rashes, No breakdown Neurological: Normal speech, Normal strength at 5/5 x4 extr - Problems (1) Congestive heart failure Current Visit: Yes Status: Acute Plan: Patient is 64 years of age admitted with worsening dyspnea at I suspect that she has congestive heart failure no evidence of sepsis is a BNP elevated bilateral ground-glass he must blood sugars elevated mild to moderate congestive heart failure patient is a little confused is a mention of obstructive airways disease although she has never smoked use bronchodilators on a p.r.n. basis Dc steroids falls I have added spironolactone echocardiogram pending patient is on Advair at home blood pressure elevated patient is anti coagulated on Eliquis possible discharge on spironolactone in addition to his usual medications will need pulmonary function testing she prominent cardiomegaly Qualifiers: Heart failure chronicity: unspecified
[2019-12-10] MEDS: ARFORMOTEROL TARTRATE 15 MCG/2 ML VIAL.NEB NEB SCH (20:55)
[2019-12-10] MEDS: IPRATROPIUM BROM 0.5MG/2.5ML NEB PRN (20:55)
[2019-12-10] MEDS: SPIRONOLACTONE 25 MG TABLET PO SCH (21:03)
[2019-12-10] MEDS: TRAZODONE 50 MG TABLET PO PRN (21:03)
[2019-12-11] MEDS: PANTOPRAZOLE 40MG TABLET PO SCH (06:00)
[2019-12-11 06:09] LABS: Hematocrit 36.9 % (36.0-45.0); MPV 8.4 fL (7.6-11.3); RBC Red Blood Cell Count 4.29 M/uL (3.86-4.86)
[2019-12-11 06:25] LABS: Magnesium 2.3 mg/dL (1.8-2.4); Potassium 4.1 mmol/L (3.5-5.1)
--- NOTE | 2019-12-11 06:47 | ECHO ---
HEIGHT: 5 ft 0 in WEIGHT: 215 lb 0 oz DATE OF STUDY: 12/10/[address]: Neptali Mukherjee MD 2-DIMENSIONAL: YES M.MODE: YES DOPPLER: YES COLOR FLOW: YES TDS: YES PORTABLE: DEFINITY: BUBBLE STUDY: DIAGNOSIS: CONGESTIVE HEART FAILURE CARDIAC HISTORY: CATHERIZATION: YES SURGERY: YES PROSTHETIC VALVE: PACEMAKER: MEASUREMENTS (cm) DIASTOLIC (NORMALS) SYSTOLIC (NORMALS) IVSd 1.0 (0.6-1.2) LA Diam 4.3 (1.9-4.0) LVEF 52% LVIDd 3.5 (3.5-5.7) LVIDs 2.6 (2.0-3.5) %FS 26% LVPWd 1.1 (0.6-1.2) Ao Diam 2.7 (2.0-3.7) 2 DIMENSIONAL ASSESSMENT: RIGHT ATRIUM: NORMAL LEFT ATRIUM: ENLARGED RIGHT VENTRICLE: NORMAL LEFT VENTRICLE: NORMAL TRICUSPID VALVE: MODERATE TRICUSPID REGURGITATION MITRAL VALVE: MILD MITRAL REGURGITATION PULMONIC VALVE: MILD PULMONIC INSUFFICIENCY AORTIC VALVE: NORMAL PERICARDIAL EFFUSION: NONE AORTIC ROOT: NORMAL LEFT VENTRICULAR WALL MOTION: NORMAL DOPPLER/COLOR FLOW: SEVERE PULMONARY HYPERTENSION COMMENTS: NORMAL LEFT VENTRICULAR EJECTION FRACTION 55-60% WITH NORMAL WALL MOTION. SEVERE PULMONARY HYPERTENSION WITH RIGHT VENTRICULAR SYSTOLIC PRESSURE >60 mmHg. MODERATE TRICUSPID REGURGITATION. MILD MITRAL REGURGITATION. TECHNOLOGIST: JOSIE MALDONADO
[2019-12-11] MEDS: ARFORMOTEROL TARTRATE 15 MCG/2 ML VIAL.NEB NEB SCH ×2 (08:09→20:10)
[2019-12-11] MEDS: INSULIN -REGULAR HUMAN 50 UNIT/0.5 ML ML SQ SCH ×8 (09:15→20:30)
[2019-12-11] MEDS: METOPROLOL TAR 25 MG TAB PO SCH ×2 (09:16→20:29)
[2019-12-11] MEDS: APIXABAN 5 MG TABLET PO SCH ×2 (09:16→20:30)
[2019-12-11] MEDS: VENLAFAXINE HCL XR 75 MG CAP PO SCH (09:17)
[2019-12-11] MEDS: FUROSEMIDE 40 MG/4 ML VIAL IV SCH (09:17)
[2019-12-11] MEDS: PRAMIPEXOLE 0.25 MG TAB PO SCH (09:17)
[2019-12-11] MEDS: CETIRIZINE HCL 5 MG TABLET PO SCH (09:17)
[2019-12-11] MEDS: NPH (HUMAN) 100 UNITS/ML INSULIN SQ SCH (09:25)
[2019-12-11] MEDS: SPIRONOLACTONE 25 MG TABLET PO SCH ×2 (09:25→20:29)
--- NOTE | 2019-12-11 09:38 | P.PN ---
Subjective Date of Service: 12/11/19 Chief Complaint: CHF exacerbation, COPD exacerbation Subjective: Improving (breathing more comfortably today, but still breathing hard swelling slightly improved no nausea/vomiting, no chest pain, no fever/chills) Physical Examination - Vital Signs Temperature: 97.7 F Blood Pressure: 149/88 Pulse: 91 Respirations: 18 Pulse Ox (%): 94 - Physical Exam General: Alert, In no apparent distress, Obese HEENT: Sclerae nonicteric Respiratory: Clear to auscultation bilaterally, Diminished (at bases bilaterally) Cardiovascular: Regular rate/rhythm, Edema (2+ to knees) Gastrointestinal: Soft and benign, Non-distended, No tenderness Musculoskeletal: Erythema (mild bilateral lower legs) Neurological: Normal speech, Normal affect Assessment & Plan Physician Review Additional Text: Acute COPD exacerbation Acute CHF exacerbation, severe pulmonary hypertension -CT chest: No evidence of PE, mild interstitial pulmonary edema seen bilaterally, positive cardiomegaly, no significant pericardial or pleural fluid -improving, on 2L NC -continue IV lasix, edema and breathing improving, spironolactone added yesterday by pulm -had steroids in ED and yesterday morning - dc'd by pulm -TTE - EF: 55-60%, severe pulmonary HTN, mod TR Restless leg syndrome -continue home pramipexole DM2 -insulin sliding scale -hyperglycemic - worsened by steroids, better control after restarting home insulin regimen -steroids dc'd yesterday Afib -continue home eliquis Dispo: anticipate dc in 24-48hrs discussed importance of establishing with a PCP after discharge Time Spent Managing Pts Care (In Minutes): 35
--- NOTE | 2019-12-11 11:25 | P.PN ---
Subjective Date of Service: 12/11/19 Chief Complaint: CHF exacerbation, Subjective: Improving (Patient is doing much better no complaints swelling has reduced) Review of Systems Unremarkable Respiratory: Shortness of Breath Physical Examination - Vital Signs Temperature: 97.7 F Blood Pressure: 149/88 Pulse: 91 Respirations: 18 Pulse Ox (%): 94 - Physical Exam General: Alert, In no apparent distress, Oriented x3 Respiratory: Clear to auscultation bilaterally Cardiovascular: Normal S1 S2, Edema Assessment & Plan - Problems (Diagnosis) (1) Congestive heart failure Current Visit: Yes Status: Acute Plan: Patient is improving change to p.o. Lasix and spironolactone patient will not qualify for home O2 patient has severe pulmonary hypertension normal left ventricular function most likely she has had diastolic dysfunction with pulmonary hypertension patient will also need an outpatient sleep study to rule out obstructive sleep apnea she is high risk the patient pulmonary function test recommend discharge home on Lasix and spironolactone continue with Advair schedule follow-up with me in 2 weeks Qualifiers: Heart failure chronicity: unspecified Physician Review Additional Text: Acute COPD exacerbation Acute CHF exacerbation, severe pulmonary hypertension -CT chest: No evidence of PE, mild interstitial pulmonary edema seen bilaterally, positive cardiomegaly, no significant pericardial or pleural fluid -improving, on 2L NC -continue IV lasix, edema and breathing improving, spironolactone added yesterday by pulm -had steroids in ED and yesterday morning - dc'd by pulm -TTE - EF: 55-60%, severe pulmonary HTN, mod TR Restless leg syndrome -continue home pramipexole DM2 -insulin sliding scale -hyperglycemic - worsened by steroids, better control after restarting home insulin regimen -steroids dc'd yesterday Afib -continue home eliquis Dispo: anticipate dc in 24-48hrs discussed importance of establishing with a PCP after discharge
[2019-12-12] MEDS: ALBUTEROL 2.5 MG/3 ML NEB SOL NEB PRN ×2 (04:00→13:50)
[2019-12-12] MEDS: IPRATROPIUM BROM 0.5MG/2.5ML NEB PRN ×2 (04:00→13:50)
[2019-12-12] MEDS: ACETAMINOPHEN 500 MG TAB PO PRN ×2 (04:41→17:57)
[2019-12-12] MEDS: PANTOPRAZOLE 40MG TABLET PO SCH (05:16)
[2019-12-12 06:21] LABS: Phosphorus 2.5 mg/dL (2.5-4.9); Potassium 3.8 mmol/L (3.5-5.1)
[2019-12-12] MEDS: POTASS/SODIUM PHOSPHATE 1 PKT POWD.PACK PO SCH ×3 (06:41→11:03)
[2019-12-12] MEDS: INSULIN -REGULAR HUMAN 50 UNIT/0.5 ML ML SQ SCH ×6 (07:30→22:00)
[2019-12-12] MEDS: ARFORMOTEROL TARTRATE 15 MCG/2 ML VIAL.NEB NEB SCH ×2 (07:44→20:00)
[2019-12-12] MEDS: NPH (HUMAN) 100 UNITS/ML INSULIN SQ SCH (08:00)
[2019-12-12] MEDS ORDERED: FUROSEMIDE 40 MG/4 ML VIAL IV SCH (09:00)
[2019-12-12] MEDS ORDERED: POTASSIUM CL SA 10 MEQ TAB PO ONE (09:00)
[2019-12-12] MEDS: CETIRIZINE HCL 5 MG TABLET PO SCH (09:54)
[2019-12-12] MEDS: FUROSEMIDE 40 MG/4 ML VIAL IV SCH (09:54)
[2019-12-12] MEDS: PRAMIPEXOLE 0.25 MG TAB PO SCH (09:54)
[2019-12-12] MEDS: METOPROLOL TAR 25 MG TAB PO SCH ×2 (09:55→21:59)
[2019-12-12] MEDS: SPIRONOLACTONE 25 MG TABLET PO SCH ×2 (09:55→21:59)
[2019-12-12] MEDS: VENLAFAXINE HCL XR 75 MG CAP PO SCH (09:55)
[2019-12-12] MEDS: APIXABAN 5 MG TABLET PO SCH ×2 (09:55→21:59)
--- NOTE | 2019-12-12 13:07 | P.PN ---
Subjective Date of Service: 12/12/19 Chief Complaint: CHF exacerbation, Subjective: Improving (Reports breathing is up and down at times. Overall she is feeling a little bit better, lower extremity swelling is improved) Physical Examination - Vital Signs Temperature: 97.8 F Blood Pressure: 138/93 Pulse: 102 Respirations: 19 Pulse Ox (%): 94 - Physical Exam General: Alert, In no apparent distress, Obese HEENT: Mucous membr. moist/pink, Sclerae nonicteric Respiratory: Diminished (At bases bilaterally) Cardiovascular: Regular rate/rhythm, Edema (1+ up to knees) Gastrointestinal: Soft and benign, Non-distended, No tenderness Musculoskeletal: No erythema, No tenderness Integumentary: Other (Superficial skin abrasions on bilateral anterior lower legs) Neurological: Normal speech, Normal affect Assessment & Plan Physician Review Additional Text: Acute CHF exacerbation, severe pulmonary hypertension -CT chest: No evidence of PE, mild interstitial pulmonary edema seen bilaterally, positive cardiomegaly, no significant pericardial or pleural fluid -improving, on 2L NC -continue IV lasix, edema and breathing improving, spironolactone added 12/10 by pulm -had steroids in ED and on admission morning - dc'd by pulm, did not feel this is an acute COPD exacerbation -TTE - EF: 55-60%, severe pulmonary HTN, mod TR Restless leg syndrome -continue home pramipexole DM2 -insulin sliding scale -restarted partial over home regimen, and patient had hypoglycemia yesterday, likely forced compliance with diet -will dc ACHS insulin, continue sliding scale Afib -continue home eliquis Dispo: anticipate dc tomorrow if continues to improve discussed importance of establishing with a PCP after discharge. will need updated sleep study Time Spent Managing Pts Care (In Minutes): 35
[2019-12-12] MEDS: MORPHINE 2 MG/ML SYR IV PRN (15:25)
[2019-12-13] MEDS: PANTOPRAZOLE 40MG TABLET PO SCH (05:29)
[2019-12-13] MEDS: ACETAMINOPHEN 500 MG TAB PO PRN (05:34)
[2019-12-13 05:51] LABS: Absolute Lymphocytes (CBC) 0.8 K/uL (0.7-4.9); Basophils % 0.4 % (0-1.3); Hematocrit 37.8 % (36.0-45.0); Lymphocytes % 11.7 % (15.3-44.8); MPV 8.8 fL (7.6-11.3)
[2019-12-13 06:07] LABS: Magnesium 2.2 mg/dL (1.8-2.4); Phosphorus 2.9 mg/dL (2.5-4.9); Potassium 4.5 mmol/L (3.5-5.1)
[2019-12-13] MEDS: INSULIN -REGULAR HUMAN 50 UNIT/0.5 ML ML SQ SCH ×4 (08:39→21:22)
[2019-12-13] MEDS: NPH (HUMAN) 100 UNITS/ML INSULIN SQ SCH (08:40)
[2019-12-13] MEDS: SPIRONOLACTONE 25 MG TABLET PO SCH ×2 (08:40→22:05)
[2019-12-13] MEDS: VENLAFAXINE HCL XR 75 MG CAP PO SCH (08:41)
[2019-12-13] MEDS: METOPROLOL TAR 25 MG TAB PO SCH ×2 (08:41→21:17)
[2019-12-13] MEDS: APIXABAN 5 MG TABLET PO SCH ×2 (08:41→21:16)
[2019-12-13] MEDS: CETIRIZINE HCL 5 MG TABLET PO SCH (08:41)
[2019-12-13] MEDS: FUROSEMIDE 40 MG/4 ML VIAL IV SCH ×2 (08:42→21:17)
[2019-12-13] MEDS: PRAMIPEXOLE 0.25 MG TAB PO SCH (08:42)
--- NOTE | 2019-12-13 11:02 | P.PN ---
Subjective Date of Service: 12/13/19 Chief Complaint: CHF exacerbation, Subjective: Improving (Slight improvement in lower extremity edema, continues to breathe heavily and quickly at times Still feels like she can't get a deep breath) Physical Examination - Vital Signs Temperature: 98.1 F Blood Pressure: 134/80 Pulse: 94 Respirations: 18 Pulse Ox (%): 95 - Physical Exam General: Alert, In no apparent distress, Obese HEENT: Sclerae nonicteric Respiratory: Clear to auscultation bilaterally, Diminished (At bases bilaterally) Cardiovascular: Regular rate/rhythm, Normal S1 S2, Edema (1+ bilaterally at knees) Gastrointestinal: Soft and benign, Non-distended, No tenderness Musculoskeletal: No erythema, No tenderness Integumentary: No rashes Neurological: Normal speech, Normal affect Assessment & Plan Physician Review Additional Text: Acute CHF exacerbation, severe pulmonary hypertension -CT chest: No evidence of PE, mild interstitial pulmonary edema seen bilaterally, positive cardiomegaly, no significant pericardial or pleural fluid -improving slowly, off and on oxygen throughout the day -continue IV lasix, edema and breathing improving, spironolactone added 12/10 by pulm -had steroids in ED and on admission morning - dc'd by pulm, did not feel this is an acute COPD exacerbation -TTE - EF: 55-60%, severe pulmonary HTN, mod TR -diuresing well, but significant shortness of breath when ambulating -will obtain ambulatory pulse ox Restless leg syndrome -continue home pramipexole DM2 -insulin sliding scale -restarted partial home regimen, and patient had hypoglycemia yesterday, likely forced compliance with diet -dc'd scheduled ACHS insulin, continue sliding scale, continue long-acting insulin Afib -continue home eliquis Dispo: Still reporting dyspnea on exertion, anticipate dc tomorrow discussed importance of establishing with a PCP after discharge. will need updated sleep study Time Spent Managing Pts Care (In Minutes): 35
[2019-12-13] MEDS: ARFORMOTEROL TARTRATE 15 MCG/2 ML VIAL.NEB NEB SCH ×2 (13:50→20:20)
[2019-12-13] MEDS: IPRATROPIUM BROM 0.5MG/2.5ML NEB PRN (20:20)
[2019-12-13] MEDS: ALBUTEROL 2.5 MG/3 ML NEB SOL NEB PRN (20:20)
[2019-12-13] MEDS: MORPHINE 2 MG/ML SYR IV PRN (21:22)
[2019-12-14] MEDS: PANTOPRAZOLE 40MG TABLET PO SCH (05:43)
[2019-12-14 06:03] LABS: Potassium 3.7 mmol/L (3.5-5.1)
[2019-12-14] MEDS: INSULIN -REGULAR HUMAN 50 UNIT/0.5 ML ML SQ SCH ×4 (07:30→21:05)
[2019-12-14] MEDS: CETIRIZINE HCL 5 MG TABLET PO SCH (08:36)
[2019-12-14] MEDS: NPH (HUMAN) 100 UNITS/ML INSULIN SQ SCH (08:36)
[2019-12-14] MEDS: SPIRONOLACTONE 25 MG TABLET PO SCH ×2 (08:37→21:03)
[2019-12-14] MEDS: APIXABAN 5 MG TABLET PO SCH ×2 (08:37→21:03)
[2019-12-14] MEDS: METOPROLOL TAR 25 MG TAB PO SCH ×2 (08:37→21:03)
[2019-12-14] MEDS: PRAMIPEXOLE 0.25 MG TAB PO SCH (08:37)
[2019-12-14] MEDS: VENLAFAXINE HCL XR 75 MG CAP PO SCH (08:37)
[2019-12-14] MEDS: SALMETEROL IH SCH (08:38)
[2019-12-14] MEDS: FUROSEMIDE 40 MG/4 ML VIAL IV SCH ×2 (08:38→21:04)
[2019-12-14] MEDS: FLUTICASONE IH SCH (08:38)
[2019-12-14] MEDS ORDERED: POTASSIUM CL SA 10 MEQ TAB PO ONE (09:00)
--- NOTE | 2019-12-14 11:09 | P.PN ---
Subjective Date of Service: 12/14/19 Chief Complaint: CHF exacerbation, Subjective: Improving (Today she reports overall feeling about the same, she states she is back and forth from breathing better and not. she continues with severe dyspnea on exertion. She gets winded just walking a few feet to the bedside commode She reports her lower extremity swelling has continued to improve She also states she has been urinating a lot more today) Review of Systems 10-point ROS is otherwise unremarkable Physical Examination - Vital Signs Temperature: 97.4 F Blood Pressure: 157/81 Pulse: 84 Respirations: 19 Pulse Ox (%): 97 - Physical Exam General: Alert, Mild distress (Tachypneic, breathing heavily), Obese HEENT: Sclerae nonicteric Respiratory: Diminished, Crackles/rales (Mild at bases bilaterally) Cardiovascular: Edema (1+ bilateral to knees), Irregular heart rate/rhythm (AFib) Gastrointestinal: Soft and benign, Non-distended, No tenderness Musculoskeletal: No erythema, No tenderness Neurological: Normal speech, Normal affect - Studies Microbiology Data (last 24 hrs): 12/09/19 05:55 Blood - Blood Aerobic Blood Culture - Final No growth in 5 days. 12/09/19 05:55 Blood - Blood Anaerobic Blood Culture - Final No growth in 5 days. 12/09/19 05:35 Blood - Blood Aerobic Blood Culture - Final No growth in 5 days. 12/09/19 05:35 Blood - Blood Anaerobic Blood Culture - Final No growth in 5 days. Assessment & Plan Physician Review Additional Text: Acute CHF exacerbation, severe pulmonary hypertension -CT chest: No evidence of PE, mild interstitial pulmonary edema seen bilaterally, positive cardiomegaly, no significant pericardial or pleural fluid -improving slowly, off and on oxygen throughout the day -edema significantly improved, breathing slowly improving -40 mg IV Lasix increased to b.i.d. on 12/12, spironolactone added 12/10 by pulm -patient diuresing much better now, UOP.: 1650 mL -had steroids in ED and on admission morning due to some expiratory wheezing on exam- dc'd by pulm, did not feel this is an acute COPD exacerbation -TTE - EF: 55-60%, severe pulmonary HTN, mod TR -diuresing better now that Lasix is b.i.d., but significant shortness of breath when ambulating -will obtain ambulatory pulse ox -cardiology consulted - agreed that patient so overloaded his significant pulmonary hypertension, and will likely need a few more days of diuresis -will consult PT/OT today as well Restless leg syndrome -continue home pramipexole DM2 -insulin sliding scale -restarted partial home regimen, and patient had hypoglycemia, likely forced compliance with diet -dc'd scheduled ACHS insulin, continue sliding scale, continue long-acting insulin at home dose Afib -continue home eliquis Dispo: Still having significant dyspnea on exertion, anticipate dc in ~48hrs discussed importance of establishing with a PCP after discharge. will need updated sleep study Sw/cm consulted, will likely benefit from home health on discharge Will need bedside commode and walker Patient can follow up with our merchandising representative and [employer] field agent Time Spent Managing Pts Care (In Minutes): 35
[2019-12-14] MEDS: ACETAMINOPHEN 500 MG TAB PO PRN (16:47)
[2019-12-14] MEDS: MORPHINE 2 MG/ML SYR IV PRN (20:00)
[2019-12-15] MEDS: PANTOPRAZOLE 40MG TABLET PO SCH (05:45)
[2019-12-15] MEDS: MORPHINE 2 MG/ML SYR IV PRN (05:46)
[2019-12-15 06:32] LABS: Magnesium 2.2 mg/dL (1.8-2.4)
[2019-12-15] MEDS: NPH (HUMAN) 100 UNITS/ML INSULIN SQ SCH (07:54)
[2019-12-15] MEDS: INSULIN -REGULAR HUMAN 50 UNIT/0.5 ML ML SQ SCH ×2 (07:55→12:02)
[2019-12-15] MEDS: PRAMIPEXOLE 0.25 MG TAB PO SCH (07:56)
[2019-12-15] MEDS: APIXABAN 5 MG TABLET PO SCH (07:56)
[2019-12-15] MEDS: VENLAFAXINE HCL XR 75 MG CAP PO SCH (07:56)
[2019-12-15] MEDS: METOPROLOL TAR 25 MG TAB PO SCH (07:56)
[2019-12-15] MEDS: CETIRIZINE HCL 5 MG TABLET PO SCH (07:56)
[2019-12-15] MEDS: TRAZODONE 50 MG TABLET PO PRN (07:57)
[2019-12-15] MEDS: FUROSEMIDE 40 MG/4 ML VIAL IV SCH (07:57)
[2019-12-15] MEDS: SPIRONOLACTONE 25 MG TABLET PO SCH (07:58)
[2019-12-15] MEDS: SALMETEROL IH SCH (07:58)
[2019-12-15] MEDS: FLUTICASONE IH SCH (07:58)
[2019-12-15 09:33] VITALS: O2SAT 91
--- NOTE | 2019-12-15 12:06 | P.DS ---
Admission Date: 12/09/19 Discharge Date: 12/15/19 Disposition: [facility]/HOME HEALTH CARE Discharge Condition: FAIR Reason for Admission: CHF exacerbation, Consultations: Pulmonary-Dr. Yousif. Brief History of Present Illness: 64 year old woman with a history of hypertension, congestive heart failure, COPD presented emergency department with a complaint of progressive shortness of breath and confusion. Patient noted to be wheezing in the ED. CTA thorax demonstrated evidence of mild CHF. Patient was admitted for further management. Hospital Course: Patient admitted to the medical and treated with IV Lasix for diuresis for CHF exacerbation. She was also treated for COPD with IV steroid and bronchodilator. Echocardiogram done demonstrated normal EF but severe pulmonary hypertension. Patient also has bilateral lower extremity edema which improved significantly with IV Lasix. She initially or was on oxygen but was weaned off oxygen to room air which she tolerated with good oxygen saturation. Patient did not qualify for home oxygen based on the home oxygen qualification test. Patient has clinically improved. He will need outpatient pulmonary function test done. He is discharged to follow with Dr. Yousif as outpatient. Vital Signs/Physical Exam: Temp Pulse Resp BP Pulse Ox 97.0 F 86 18 137/88 95 12/15/19 08:00 12/15/19 08:00 12/15/19 08:00 12/15/19 08:00 12/15/19 08:00 General: Alert, In no apparent distress HEENT: Mucous membr. moist/pink Neck: Supple, JVD not distended Respiratory: Clear to auscultation bilaterally, Normal air movement Cardiovascular: No edema, Regular rate/rhythm, Normal S1 S2 Capillary refill: <2 Seconds Gastrointestinal: Normal bowel sounds, Soft and benign, No tenderness Musculoskeletal: No swelling, No erythema Integumentary: No erythema Neurological: Normal speech, Normal strength at 5/5 x4 extr Laboratory Data at Discharge: WBC 6.9 K/uL (4.3-10.9) D 12/13/19 05:34 Hgb 11.9 g/dL (12.0-15.0) L 12/13/19 05:34 Hct 37.8 % (36.0-45.0) 12/13/19 05:34 Plt Count 161 K/uL (152-406) 12/13/19 05:34 PT 14.8 SECONDS (9.5-12.5) H 12/09/19 05:55 INR 1.26 12/09/19 05:55 APTT 32.4 SECONDS (24.3-36.9) 12/09/19 05:55 Sodium 139 mmol/L (136-145) 12/15/19 05:34 Potassium 4.0 mmol/L (3.5-5.1) 12/15/19 05:34 BUN 25 mg/dL (7-18) H 12/15/19 05:34 Creatinine 1.21 mg/dL (0.55-1.3) 12/15/19 05:34 Glucose 260 mg/dL (74-106) H 12/15/19 05:34 Phosphorus 2.9 mg/dL (2.5-4.9) 12/13/19 05:34 Magnesium 2.2 mg/dL (1.8-2.4) 12/15/19 05:34 Total Bilirubin 0.7 mg/dL (0.2-1.0) 12/10/19 04:53 AST 42 U/L (15-37) H 12/10/19 04:53 ALT 24 U/L (12-78) 12/10/19 04:53 Alkaline Phosphatase 122 U/L (45-117) H 12/10/19 04:53 Triglycerides 71 mg/dL (<150) 12/10/19 04:53 Cholesterol 114 mg/dL (<200) 12/10/19 04:53 HDL Cholesterol 58 mg/dL (40-60) 12/10/19 04:53 Cholesterol/HDL Ratio 1.97 12/10/19 04:53 Lipase 166 U/L (73-393) 12/09/19 05:55 Home Medications: Apixaban [Eliquis] 5 mg PO DAILY 12/09/19 Cetirizine HCl [Allergy Relief] 10 mg PO DAILY 12/09/19 Fluticasone/Salmeterol [Advair 250-50 Diskus] 1 inh IH DAILY 12/09/19 Furosemide [Lasix*] 40 mg PO BIDL 12/09/19 Glipizide [Glipizide ER] 2.5 mg PO DAILY 12/09/19 Metoprolol Tartrate [Lopressor*] 25 mg PO BID 12/09/19 Pantoprazole Sodium [Protonix] 20 mg PO 0600 12/09/19 Pramipexole [Mirapex*] 0.25 mg PO DAILY 12/09/19 Trazodone HCl 50 mg PO BEDTIME PRN 12/09/19 Venlafaxine HCl [Venlafaxine HCl ER] 150 mg PO DAILY 12/09/19 Albuterol Neb [Proventil 0.083% Neb Soln] 2.5 mg NEB [id number] PRN #120 amp 12/15/19 Ipratropium Neb [Atrovent*] 0.5 mg NEB [id number] PRN #120 amp 12/15/19 Spironolactone [Aldactone*] 25 mg PO BID #60 tab 12/15/19 New Medications: Ipratropium Neb [Atrovent*] 0.5 mg NEB [id number] PRN #120 amp PRN Reason: Shortness Of Breath Albuterol Neb [Proventil 0.083% Neb Soln] 2.5 mg NEB [id number] PRN #120 amp PRN Reason: Shortness Of Breath Spironolactone [Aldactone*] 25 mg PO BID #60 tab Diet: ADA Activity: Fall precautions Followup: [place] Yousif MD [ACTIVE - CAN ADMIT] - 1-2 Weeks Tyree Hull MD [ACTIVE - CAN ADMIT] - 1-2 Weeks Time spent managing pt's care (in minutes): 35
[2019-12-15 17:28] VITALS: BP 127/76; TEMP 97.4
== END 2019-12-15 13:08 | disposition home health service (06) | DRG 292 ==
LOC: ER 05:07 → ERHOLD 11:24 → 2ND 11:37
PROVIDERS: ADMIT Hospitalist; ATTEND Internal Medicine
DX: I11.0 Hypertensive heart disease with heart failure (principal); Z68.41 Body mass index [BMI] 40.0-44.9, adult; I50.33 Acute on chronic diastolic (congestive) heart failure; E66.9 Obesity, unspecified; G25.81 Restless legs syndrome; E11.65 Type 2 diabetes mellitus with hyperglycemia; I25.10 Atherosclerotic heart disease of native coronary artery without angina pectoris; E78.5 Hyperlipidemia, unspecified; I48.0 Paroxysmal atrial fibrillation; I27.20 Pulmonary hypertension, unspecified; J44.9 Chronic obstructive pulmonary disease, unspecified; Z79.01 Long term (current) use of anticoagulants; Z88.1 Allergy status to other antibiotic agents; Z79.899 Other long term (current) drug therapy; Z95.1 Presence of aortocoronary bypass graft; Z95.5 Presence of coronary angioplasty implant and graft; Z79.84 Long term (current) use of oral hypoglycemic drugs; Z20.828 Contact with and (suspected) exposure to other viral communicable diseases
CPT/HCPCS: 36415; 71045; 71275; 80048; 80053; 80061; 80076; 82550; 82553; 82947; 83690; 83735; 83880; 84100; 84443; 84484; 85025; 85027; 85379; 85610; 85730; 87040; 90471; 90670; 93005; 93306; 94640; 94760; 96372; 97116; 97161; 97530; 99285; J1815; J1940; J2270; J2405; J2920; J2930; J7605; Q9967; U0002

== ENCOUNTER 2019-12-25 03:03 | Inpatient (IN) | payer OTHER ==
[2019-12-25] MEDS ORDERED: dilTIAZem HCL 25 MG/5 ML VIAL IV ONE ×3 (03:30→05:36)
[2019-12-25 03:46] LABS: Absolute Lymphocytes (CBC) 0.5 K/uL (0.7-4.9); Basophils % 0.6 % (0-1.3); Hematocrit 32.9 % (36.0-45.0); Lymphocytes % 4.1 % (15.3-44.8)
[2019-12-25 03:50] LABS: Protime INR 1.68
[2019-12-25 04:03] LABS: ALT/SGPT 91 U/L (12-78); AST/SGOT 112 U/L (15-37); Albumin 2.6 g/dL (3.4-5.0); Alkaline Phosphatase 230 U/L (45-117); BUN Blood Urea Nitrogen 16 mg/dL (7-18); Bicarbonate 24 mmol/L (21-32); Bilirubin Total 1.7 mg/dL (0.2-1.0); CKMB Creatine Kinase MB < 1.0 ng/mL (0.3-3.6); Creatine Phosphokinase 36 U/L (26-192); Glucose Level 328 mg/dL (74-106); Lipase 61 U/L (73-393); Magnesium 2.1 mg/dL (1.8-2.4); NT PRO-BNP 2986 pg/mL (<125); Protein, Total 7.5 g/dL (6.4-8.2); Sodium Level 133 mmol/L (136-145); Troponin (Emerg Dept Use Only) < 0.02 ng/mL (0.0-0.045)
[2019-12-25 04:08] LABS: Blood Morphology Comment NOT SEEN (NOT SEEN); Platelet Estimate ADEQ
[2019-12-25] MEDS ORDERED: MORPHINE 2 MG/ML SYR ONE (05:03)
--- NOTE | 2019-12-25 05:05 | ER ---
Nurse's Notes [facility] Name: Kandice Elizabeth Age: 64 yrs Sex: Female : 1955 Arrival Date: 12/25/2019 Time: 03:04 Bed 4 Private MD: Diagnosis: Persistent atrial fibrillation;Pneumonia, unspecified organism Presentation: 12/24 03:08 Chief complaint: EMS states: Reports pt was complaining of SOB for the past few days, ea today it got worse so she decided to call EMS. EMS reported room air sats at 79%, pt was placed on O2 at 2 L per nasal cannula. Coronavirus screen: At this time, the client does not indicate any symptoms associated with coronavirus-19. Ebola Screen: No symptoms or risks identified at this time. Initial Sepsis Screen: Does the patient meet any 2 criteria? No. Patient's initial sepsis screen is negative. Does the patient have a suspected source of infection? No. Patient's initial sepsis screen is negative. Risk Assessment: Do you want to hurt yourself or someone else? Patient reports no desire to harm self or others. Onset of symptoms was December 25, 2019. 03:08 Method Of Arrival: EMS: [facility] ea 03:08 Acuity: COLBY 3 ea Triage Assessment: 03:13 General: Appears in no apparent distress. Behavior is cooperative. Pain: Complains of ea pain in chest Aggravated by deep breathing. Respiratory: Reports shortness of breath at rest Airway is patent Respiratory effort is labored, Respiratory pattern is tachypnea Onset: The symptoms/episode began/occurred yesterday, the patient has mild shortness of breath. Historical: - Allergies: 03:13 amoxicillin; ea - Home Meds: 03:13 venlafaxine 150 mg Oral cp24 1 cap once daily [Active]; trazodone 50 mg Oral tab 1 tab ea nightly [Active]; pramipexole 0.25 mg Oral tab 1 tab daily [Active]; pantoprazole 40 mg Oral TbEC 1 tab once daily [Active]; Potassium Chloride Oral [Active]; Novolin R 40 units, SUBQ twice daily Sub-Q [Active]; Novolin N 100 unit/mL Sub-Q susp [Active]; metoprolol tartrate 25 mg Oral tab 1 tab 2 times per day [Active]; glipizide 2.5 mg Oral tr24 once daily [Active]; furosemide 40 mg Oral tab 1 tab 2 times per day [Active]; Eliquis 5 mg Oral tab 1 tab 2 times per day [Active]; cetirizine 10 mg Oral tab 1 tab once daily [Active]; Advair Diskus 250-50 mcg/dose Inhl dsdv 1 puff 2 times per day [Active]; - PMHx: 03:13 Hypertension; Diabetes - IDDM; COPD; CHF; CAD; Brain bleed; Atrial Fib; ea - PSHx: 03:13 Carpal Tunnel Repair; Heart stents; bypass surgery; ea - Immunization history:: Adult Immunizations up to date. - Social history:: Smoking status: Patient denies any tobacco usage or history of. Screenin:07 Abuse screen: Denies threats or abuse. Nutritional screening: No deficits noted. ea Tuberculosis screening: No symptoms or risk factors identified. Fall Risk None identified. Assessment: 03:41 General: Appears in no apparent distress. Behavior is cooperative. Neuro: Level of ea Consciousness is awake, alert, obeys commands, Oriented to person, place, time, situation. Cardiovascular: Rhythm is atrial fibrillation with rapid ventricular response. Respiratory: Airway is patent Respiratory effort is even, Respiratory pattern is tachypnea. Derm: Skin is dry, Skin is pale, Skin temperature is warm. 04:02 Reassessment: Patient and/or family updated on plan of care and expected duration. Pain ea level reassessed. Pt alert and oriented x 3. Respirations remain tachypneic but unlabored. Skin is pale , dry and warm. 05:55 Reassessment: Patient and/or family updated on plan of care and expected duration. Pain ea level reassessed. Pt alert and oriented x 3. Pt remains tachypneic respirations are equal and unlabored, skin pale, dry and warm. 07:10 Reassessment: Patient appears in no apparent distress at this time. Patient and/or jl7 family updated on plan of care and expected duration. Pain level reassessed. Patient is alert, oriented x 3, equal unlabored respirations, skin warm/dry/pink. Patient denies pain at this time. Cardiovascular: Heart tones present Rhythm is atrial fibrillation. Respiratory: Airway is patent Respiratory effort is even, labored, Respiratory pattern is symmetrical, tachypnea Breath sounds with crackles in left upper lobe and left lower lobe. Derm: Skin is dry, Skin is pale, Skin temperature is warm. 07:28 Reassessment: Dr. Molina at bedside, VO for 50 mg Metoprolol Succinate PO. [facility] 07:45 Reassessment: Pt requesting for a hospitalist to take care of her while she's in the [facility] hospital. Dr. Molina notified. 09:17 Reassessment: Patient appears in no apparent distress at this time. No changes from [facility] previously documented assessment. Patient and/or family updated on plan of care and expected duration. Pain level reassessed. Patient is alert, oriented x 3, equal unlabored respirations, skin warm/dry/pink. Vital Signs: 03:08 BP 141 / 79; Pulse 80; Resp 22; Temp 99.8; Pulse Ox 93% on R/A; Weight 90.72 kg; Height ea 5 ft. (152.40 cm); 04:02 BP 137 / 88; Pulse 137; Resp 23; Pulse Ox 94% on 2 lpm NC; ea 05:41 BP 126 / 69; Pulse 116; Resp 24; Pulse Ox 92% ; ea 06:55 BP 134 / 89; Pulse 128; Resp 26; Pulse Ox 94% 2 lpm ; ea 07:03 BP 114 / 81; Pulse 133; Resp 22; Pulse Ox 87% on R/A; 7 07:46 BP 134 / 88; Pulse 136; Resp 23; Pulse Ox 100% 2 lpm ; Pain 0/10; jl7 09:12 BP 126 / 77; Pulse 109; Resp 19; Pulse Ox 92% ; [facility] 03:08 Body Mass Index 39.06 (90.72 kg, 152.40 cm) ED Course: 03:04 Patient arrived in ED. cl3 03:07 Robert Rodriguez MD is Attending Physician. tw4 03:10 Irma Power RN is Primary Nurse. ea 03:10 Triage completed. ea 03:10 Patient has correct armband on for positive identification. Bed in low position. Call ea light in reach. Side rails up X2. surveillance monitor on. Pulse ox on. NIBP on. 03:11 Arm band placed on right wrist. Patient placed in an exam room, on a stretcher, on ea pulse oximetry. 03:28 XRAY CXR (1 view) In Process Unspecified. EDMS 03:40 Inserted saline lock: 22 gauge in left forearm, using aseptic technique. Blood ea collected. per Mario technology assistant. 03:43 Blood Culture Adult (2) Sent. ll2 03:43 BMP Sent. ll2 03:43 CBC with Diff Sent. ll2 03:43 Troponin (emerg Dept Use Only) Sent. ll2 03:44 Ckmb Sent. ll2 03:45 CPK Sent. ll2 03:45 D-Dimer Sent. ll2 03:45 Hepatic Function Sent. ll2 03:45 Lipase Sent. ll2 03:45 Magnesium Sent. ll2 03:45 NT PRO-BNP Sent. ll2 03:45 PT-INR Sent. ll2 03:46 Ptt, Activated Sent. ll2 05:04 Domingo Molina MD is Hospitalizing Provider. tw4 05:42 Inserted saline lock: 24 gauge in left forearm, using aseptic technique. ea 05:42 No provider procedures requiring assistance completed. Patient admitted, IV remains in ea place. 05:58 CT Chest For PE Angio In Process Unspecified. EDMS 05:58 CT Abd/Pelvis - IV Contrast Only In Process Unspecified. EDMS 06:09 Inserted MIDLINE G18 X 10CM, RIGHT FOREARM. rv Administered Medications: 03:43 Drug: Cardizem 10 mg Route: IVP; Site: left forearm; ll2 03:46 Follow up: Response: No adverse reaction ll2 04:58 Drug: morphine 2 mg Route: IVP; Site: left antecubital; rv 06:03 Follow up: Response: No adverse reaction; RASS: Alert and Calm (0) ll2 04:58 Drug: Zofran (Ondansetron) 4 mg Route: IVP; Site: left antecubital; rv 06:02 Follow up: Response: No adverse reaction ll2 06:02 Drug: Cardizem 5 mg/hr Route: IV; Rate: calculated rate; Site: left wrist; ll2 07:15 Follow up: Rate change 10 mg/hr jl7 09:17 Follow up: Response: No adverse reaction; IV Status: Infusion continued upon admission jl7 07:32 Drug: Metoprolol 50 mg Route: PO; jl7 09:17 Follow up: Response: No adverse reaction jl7 Outcome: 05:05 Decision to Hospitalize by Provider. tw4 05:42 Instructed on the need for admit, Demonstrated understanding of instructions. ea 10:57 Patient left the ED. eb Signatures: Dispatcher [employer] EDJanet Lawler RN RN jl7 Irma Power RN Robert Rankin ea, MD MD tw4 Yesika Mason Ronaldo RN RN Yola Lakhani 3 Katlin Bean RN RN ll2 Corrections: (The following items were deleted from the chart) 06:26 04:02 Reassessment: Patient and/or family updated on plan of care and expected ea duration. Pain level reassessed. Patient is alert, oriented x 3, equal unlabored respirations, skin warm/dry/pink. ea
--- NOTE | 2019-12-25 05:05 | EDPHYS ---
Physician Documentation [facility] Name: Kandice Elizabeth Age: 64 yrs Sex: Female : 1955 Arrival Date: 12/25/2019 Time: 03:04 Bed 4 Private MD: ED Physician Robert Rodriguez HPI: 12/24 03:46 This 64 yrs old Female presents to ER via EMS with complaints of Shortness Of tw4 Breath. 03:46 The patient has shortness of breath at rest. Onset: The symptoms/episode began/occurred tw4 today. Duration: The symptoms are continuous, and are unchanged since they started. The patient's shortness of breath has no apparent modifying factors. Associated signs and symptoms: The patient has no apparent associated signs or symptoms. Severity of symptoms: At their worst the symptoms were moderate in the emergency department the symptoms are unchanged. The patient has not experienced similar symptoms in the past. Historical: - Allergies: 03:13 amoxicillin; ea - Home Meds: 03:13 venlafaxine 150 mg Oral cp24 1 cap once daily [Active]; trazodone 50 mg Oral tab 1 tab ea nightly [Active]; pramipexole 0.25 mg Oral tab 1 tab daily [Active]; pantoprazole 40 mg Oral TbEC 1 tab once daily [Active]; Potassium Chloride Oral [Active]; Novolin R 40 units, SUBQ twice daily Sub-Q [Active]; Novolin N 100 unit/mL Sub-Q susp [Active]; metoprolol tartrate 25 mg Oral tab 1 tab 2 times per day [Active]; glipizide 2.5 mg Oral tr24 once daily [Active]; furosemide 40 mg Oral tab 1 tab 2 times per day [Active]; Eliquis 5 mg Oral tab 1 tab 2 times per day [Active]; cetirizine 10 mg Oral tab 1 tab once daily [Active]; Advair Diskus 250-50 mcg/dose Inhl dsdv 1 puff 2 times per day [Active]; - PMHx: 03:13 Hypertension; Diabetes - IDDM; COPD; CHF; CAD; Brain bleed; Atrial Fib; ea - PSHx: 03:13 Carpal Tunnel Repair; Heart stents; bypass surgery; ea - Immunization history:: Adult Immunizations up to date. - Social history:: Smoking status: Patient denies any tobacco usage or history of. ROS: 03:46 Constitutional: Negative for fever, chills, and weight loss, Eyes: Negative for injury, tw4 pain, redness, and discharge, Cardiovascular: Negative for chest pain, palpitations, and edema, Abdomen/GI: Negative for abdominal pain, nausea, vomiting, diarrhea, and constipation, Back: Negative for injury and pain, MS/Extremity: Negative for injury and deformity, Skin: Negative for injury, rash, and discoloration, Neuro: Negative for headache, weakness, numbness, tingling, and seizure. 03:46 Neck: Negative for injury, pain, and swelling. 03:46 Respiratory: Positive for shortness of breath, Negative for cough, dyspnea on exertion, hemoptysis, orthopnea. Exam: 03:46 Constitutional: This is a well developed, well nourished patient who is awake, alert, tw4 and in no acute distress. Head/Face: Normocephalic, atraumatic. 03:46 Neck: Trachea midline, no thyromegaly or masses palpated, and no cervical lymphadenopathy. Supple, full range of motion without nuchal rigidity, or vertebral point tenderness. No Meningismus. Chest/axilla: Normal chest wall appearance and motion. Nontender with no deformity. No lesions are appreciated. 03:46 Respiratory: Lungs have equal breath sounds bilaterally, clear to auscultation and percussion. No rales, rhonchi or wheezes noted. No increased work of breathing, no retractions or nasal flaring. Abdomen/GI: Soft, non-tender, with normal bowel sounds. No distension or tympany. No guarding or rebound. No evidence of tenderness throughout. Back: No spinal tenderness. No costovertebral tenderness. Full range of motion. Skin: Warm, dry with normal turgor. Normal color with no rashes, no lesions, and no evidence of cellulitis. MS/ Extremity: Pulses equal, no cyanosis. Neurovascular intact. Full, normal range of motion. Neuro: Awake and alert, GCS 15, oriented to person, place, time, and situation. Cranial nerves II-XII grossly intact. Motor strength 5/5 in all extremities. Sensory grossly intact. Cerebellar exam normal. Normal gait. 03:46 Eyes: Periorbital structures: appear normal, Pupils: no acute changes, equal, round, and reactive to light and accomodation, Extraocular movements: no acute changes, Conjunctiva: pale. 03:46 Cardiovascular: Rate: tachycardic, actual rate is 158 bpm, Rhythm: irregularly irregular, Pulses: Pulses are 1+ in right radial artery and left radial artery. Vital Signs: 03:08 BP 141 / 79; Pulse 80; Resp 22; Temp 99.8; Pulse Ox 93% on R/A; Weight 90.72 kg; Height ea 5 ft. (152.40 cm); 04:02 BP 137 / 88; Pulse 137; Resp 23; Pulse Ox 94% on 2 lpm NC; ea 05:41 BP 126 / 69; Pulse 116; Resp 24; Pulse Ox 92% ; ea 06:55 BP 134 / 89; Pulse 128; Resp 26; Pulse Ox 94% 2 lpm ; ea 07:03 BP 114 / 81; Pulse 133; Resp 22; Pulse Ox 87% on R/A; jl7 07:46 BP 134 / 88; Pulse 136; Resp 23; Pulse Ox 100% 2 lpm ; Pain 0/10; jl7 09:12 BP 126 / 77; Pulse 109; Resp 19; Pulse Ox 92% ; jl7 03:08 Body Mass Index 39.06 (90.72 kg, 152.40 cm) ea MDM: 03:14 Patient medically screened. tw4 03:48 Differential diagnosis: CHF exacerbation, Chronic Obstructive Pulmonary Disease tw4 Myocardial Infarction pulmonary edema, Pulmonary Embolism reactive airway disease. Data reviewed: vital signs, nurses notes. 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 Counseling: I had a detailed discussion with the patient and/or guardian regarding: the historical points, exam findings, and any diagnostic results supporting the discharge/admit diagnosis. 12/24 03:09 Order name: Blood Culture Adult (2) tw4 12/24 03:09 Order name: BMP tw4 12/24 03:09 Order name: CBC with Diff tw4 12/24 03:09 Order name: Ckmb tw4 12/24 03:09 Order name: CPK tw4 12/24 03:09 Order name: D-Dimer tw4 12/24 03:09 Order name: Hepatic Function tw4 12/24 03:09 Order name: Lipase tw4 12/24 03:09 Order name: Magnesium tw4 12/24 03:09 Order name: NT PRO-BNP tw4 12/24 03:09 Order name: PT-INR tw4 12/24 03:09 Order name: Ptt, Activated tw4 12/24 03:09 Order name: Troponin (emerg Dept Use Only) tw4 12/24 03:09 Order name: COVID-19 tw4 12/24 03:09 Order name: Flu; Complete Time: 04:10 tw4 12/24 03:09 Order name: Strep; Complete Time: 04:10 tw4 12/24 03:10 Order name: Blood Culture EDMS 12/24 03:10 Order name: Basic Metabolic Panel; Complete Time: 04:10 EDMS 12/24 06:35 Interpretation: Normal except: GLUC 328; NA 133; GFR 50. tw4 12/24 03:10 Order name: CBC with Automated Diff; Complete Time: 04:10 EDMS 12/24 06:34 Interpretation: Normal except: WBC 12.3; RBC 3.80; HGB 10.3; HCT 32.9; MCHC 31.2; RDW tw4 17.8; LYM% 4.1; MARIA LUZ% 87.7. 12/24 03:10 Order name: CKMB Creatine Kinase MB; Complete Time: 04:10 EDMS 12/24 03:10 Order name: Creatine Phosphokinase; Complete Time: 04:10 EDMS 12/24 03:10 Order name: D-Dimer; Complete Time: 04:10 EDMS 12/24 06:35 Interpretation: Normal except: D-DIMER 2502. tw4 12/24 03:10 Order name: Liver (Hepatic) Function; Complete Time: 04:10 EDMS 12/24 06:35 Interpretation: Normal except: AST 112; ALT 91; ALK 230; BILIT 1.7; BILID 1.0; ALB 2.6; tw4 GLOB 4.9. 12/24 03:10 Order name: Lipase; Complete Time: 04:10 EDMS 12/24 03:10 Order name: Magnesium; Complete Time: 04:10 EDMS 12/24 03:10 Order name: NT PRO-BNP; Complete Time: 04:10 EDMS 12/24 06:35 Interpretation: Normal except: NT PRO-BNP 2986. tw4 12/24 03:10 Order name: Protime (+INR); Complete Time: 04:10 EDMS 12/24 06:35 Interpretation: Abnormal: PT 19.6. tw4 12/24 03:10 Order name: PTT, Activated Partial Thromb; Complete Time: 04:10 EDMS 12/24 03:10 Order name: Troponin (Emerg Dept Use Only); Complete Time: 04:10 EDMS 12/24 03:52 Order name: Manual Differential; Complete Time: 04:10 EDMS 12/24 06:35 Interpretation: Normal except: SEGS 86; BANDS [F] 7; LYM 2. tw4 12/24 03:09 Order name: XRAY CXR (1 view) tw4 12/24 03:09 Order name: EKG; Complete Time: 03:10 tw4 12/24 03:09 Order name: Cardiac monitoring; Complete Time: 03:22 tw4 12/24 03:09 Order name: EKG - Nurse/Tech; Complete Time: 03:22 tw4 12/24 03:09 Order name: IV Saline Lock; Complete Time: 03:40 tw4 12/24 03:09 Order name: Labs collected and sent; Complete Time: 03:40 tw4 12/24 03:09 Order name: O2 Per Protocol; Complete Time: 03:40 tw4 12/24 03:09 Order name: O2 Sat Monitoring; Complete Time: 03:40 tw4 12/24 03:09 Order name: Document PUI#; Complete Time: 03:23 tw4 12/24 03:09 Order name: Droplet/Contact Precautions; Complete Time: 03:23 tw4 12/24 03:09 Order name: Notify Health Dept [phone]/ ; Complete Time: 03:23 tw4 12/24 04:09 Order name: Throat Culture EDMS 12/24 04:50 Order name: CT Chest For PE Angio tw4 12/24 04:50 Order name: CT Abd/Pelvis - IV Contrast Only tw4 12/24 08:06 Order name: SARS-COV-2 RT PCR EDMS 12/24 08:42 Order name: Hemoglobin A1c EDMS 12/24 10:19 Order name: Basic Metabolic Panel EDMS 12/24 10:19 Order name: Troponin I EDMS EC:46 Rhythm is regular. QRS [place] is Normal. MT interval is normal. QRS interval is normal. tw4 QT interval is normal. No Q waves. T waves are Inverted in leads II, III, aVF, V5, V6. No ST changes noted. Clinical impression: Atrial Fibrillation. Reviewed by me. Administered Medications: 03:43 Drug: Cardizem 10 mg Route: IVP; Site: left forearm; ll2 03:46 Follow up: Response: No adverse reaction ll2 04:58 Drug: morphine 2 mg Route: IVP; Site: left antecubital; rv 06:03 Follow up: Response: No adverse reaction; RASS: Alert and Calm (0) ll2 04:58 Drug: Zofran (Ondansetron) 4 mg Route: IVP; Site: left antecubital; rv 06:02 Follow up: Response: No adverse reaction ll2 06:02 Drug: Cardizem 5 mg/hr Route: IV; Rate: calculated rate; Site: left wrist; ll2 07:15 Follow up: Rate change 10 mg/hr jl7 09:17 Follow up: Response: No adverse reaction; IV Status: Infusion continued upon admission jl7 07:32 Drug: Metoprolol 50 mg Route: PO; jl7 09:17 Follow up: Response: No adverse reaction jl7 Disposition: 12/25/19 05:05 Hospitalization ordered by Domingo Molina for Inpatient Admission. Preliminary diagnosis are Persistent atrial fibrillation, Pneumonia, unspecified organism. - Bed requested for Telemetry/MedSurg (Inpatient). - Status is Inpatient Admission. eb - Condition is Stable. - Problem is new. - Symptoms have improved. Signatures: Dispatcher [employer] EDMS Mike Kuhn, DIRECTOR PART-C DIRECTOR PART-Cla1 Janet Munoz RN RN jl7 Irma Power RN RN ea Wadley, Terrence, MD MD tw4 Yesika Mason Eric Charles, RN RN Katlin Tinsley, RN RN ll2 Corrections: (The following items were deleted from the chart) 06:42 05:05 Hospitalization Ordered by Domingo Molina MD for Inpatient Admission. Preliminary tw4 diagnosis is Persistent atrial fibrillation. Bed requested for Telemetry/MedSurg (Inpatient). Status is Inpatient Admission. Condition is Stable. Problem is new. Symptoms have improved. tw4 10:57 06:42 12/25/2019 05:05 Hospitalization Ordered by Domingo Molina MD for Inpatient eb Admission. Preliminary diagnosis is Persistent atrial fibrillation; Pneumonia, unspecified organism. Bed requested for Telemetry/MedSurg (Inpatient). Status is Inpatient Admission. Condition is Stable. Problem is new. Symptoms have improved. tw4
[2019-12-25] MEDS ORDERED: NA CHLORIDE 0.9% 100 ML IV ONE (05:37)
[2019-12-25] MEDS ORDERED: D50W 25 GM/50 ML SYRINGE/VIAL IV PRN (07:38)
[2019-12-25] MEDS ORDERED: METOPROLOL XL 50 MG TAB PO ONE (07:38)
[2019-12-25] MEDS ORDERED: GLUCAGON 1 MG/VIAL IM PRN (07:38)
--- NOTE | 2019-12-25 07:42 | RAD REPORT ---
EXAM DESCRIPTION: RAD - Chest Single View - 12/25/2019 3:27 am CLINICAL HISTORY: SOB COMPARISON: December 08 TECHNIQUE: AP portable chest image was obtained 12/25/2019 3:27 am . FINDINGS: Increased interstitial opacification is present along with significant cardiomegaly and va scular engorgement. Hazy ground-glass opacification is present in the lung [place]. Focally more promi nent opacification is present in the mid and lower left lung field. Trachea is midline. Sternotomy wi res are in place. No pneumothorax. Small pleural effusions are suspected. No acute bony abnormality s een. No acute aortic findings suspected. IMPRESSION: CHF/volume overload findings are present. Focal opacification in the mid and lower lung field could be asymmetric failure pattern or concurrent left lung field pneumonia.
--- NOTE | 2019-12-25 07:46 | P.HP ---
Certification for Inpatient Patient admitted to: Inpatient With expected LOS: >2 Midnights Patient will require the following post-hospital care: None Practitioner: I am a practitioner with admitting privileges, knowledge of patient current condition, hospital course, and medical plan of care. Services: Services provided to patient in accordance with Admission requirements found in Title 42 Section 412.3 of the Code of Federal Regulations Patient History Date of Service: 12/25/19 Primary Care Provider: Jesse Reason for admission: afib with RVR History of Present Illness: Patient is a non compliant patient with my office. She has not been into the office in several months and missed several appointments. The patient has been having a cough for the last 4 days. States she has been having a few tsp of reddish sputum. She states that her temperature has been 100.7 or 100.8. She was getting some substernal chest pressure yesterday. Came to the ER and was found to be in RVR started on a cardizem drip. She had a ct scan to rule out a PE. Which was negative. Per the ER there is a report of possible early pneu monia. Her curb 65 score is 1, signifiying a 3.2% 30 day mortality. The patient asked for the hospitalist after I had finished talking to her Allergies amoxicillin Adverse Reaction (Verified 12/09/19 12:49) Rash Home Medications: Apixaban [Eliquis] 5 mg PO DAILY 12/09/19 Cetirizine HCl [Allergy Relief] 10 mg PO DAILY 12/09/19 Fluticasone/Salmeterol [Advair 250-50 Diskus] 1 inh IH DAILY 12/09/19 Furosemide [Lasix*] 40 mg PO BIDL 12/09/19 Glipizide [Glipizide ER] 2.5 mg PO DAILY 12/09/19 Metoprolol Tartrate [Lopressor*] 25 mg PO BID 12/09/19 Pantoprazole Sodium [Protonix] 20 mg PO 0600 12/09/19 Pramipexole [Mirapex*] 0.25 mg PO DAILY 12/09/19 Trazodone HCl 50 mg PO BEDTIME PRN 12/09/19 Venlafaxine HCl [Venlafaxine HCl ER] 150 mg PO DAILY 12/09/19 Albuterol Neb [Proventil 0.083% Neb Soln] 2.5 mg NEB [id number] PRN #120 amp 12/15/19 Ipratropium Neb [Atrovent*] 0.5 mg NEB [id number] PRN #120 amp 12/15/19 Spironolactone [Aldactone*] 25 mg PO BID #60 tab 12/15/19 - Past Medical/Surgical History Diabetic: Yes -: DM 2 -: HTN -: COPD -: Restless leg syndrome -: restless leg syndrome -: obst airway per signif other. -: CAD -: Cardiac surgery -: Brain surgery for aneurysm - Social History Alcohol use: No CD- Drugs: No Caffeine use: Yes Review of Systems 10-point ROS is otherwise unremarkable General: Fever Respiratory: Cough Cardiovascular: Chest Pain Physical Examination - Physical Exam General: Alert, Mild distress HEENT: Atraumatic, PERRLA, Mucous membr. moist/pink, EOMI, Sclerae nonicteric Neck: Supple, 2+ carotid pulse no bruit, No LAD, Without JVD or thyroid abnormality Respiratory: Clear to auscultation bilaterally, Normal air movement Cardiovascular: Normal S1 S2, Irregular heart rate/rhythm (tachycardia) Gastrointestinal: Normal bowel sounds, No tenderness Musculoskeletal: No tenderness Integumentary: No rashes Neurological: Normal gait, Normal speech, Normal strength at 5/5 x4 extr, Normal tone, Normal affect Lymphatics: No axilla or inguinal lymphadenopathy - Studies Laboratory Data (last 24 hrs) 12/25/19 03:37: PT 19.6 H, INR 1.68, APTT 32.5 12/25/19 03:37: WBC 12.3 H D, Hgb 10.3 L, Hct 32.9 L, Plt Count 178 12/25/19 03:37: Sodium 133 L, Potassium 4.0, BUN 16, Creatinine 1.09, Glucose 328 H, Magnesium 2.1, Total Bilirubin 1.7 H, AST 112 H, ALT 91 H, Alkaline Phosphatase 230 H, Lipase 61 L Microbiology Data (last 24 hrs): 12/25/19 03:25 Blood - Blood Anaerobic Blood Culture - Final 12/25/19 03:20 Throat Group A Streptococcus Rapid Screen - Final 12/25/19 03:20 Nasopharnyx Influenza Type A Antigen Screen - Final 12/25/19 03:20 Nasopharnyx Influenza Type B Antigen Screen - Final Assessment and Plan - Problems (Diagnosis) (1) Atrial fibrillation with RVR Current Visit: Yes Status: Acute Plan: acute on chronic. Will start her on metoprolol and try to wean her off the cardizem drip. She is awaiting her covid result to see which unit she can go to. Will consult Dr. Byers. I have called and left a message on his phone. (2) Pneumonia Current Visit: Yes Status: Acute Plan: Patient is doing well. She is a possible inpatient based on her curb 65. That is not considering the rvr. Will start her on levaquin. Qualifiers: Pneumonia type: due to unspecified organism (3) COPD (chronic obstructive pulmonary disease) Current Visit: Yes Status: Acute Plan: Will put her on levalbuterol prn. Will keep her on oxygen. Qualifiers: COPD type: chronic bronchitis Chronic bronchitis type: simple Qualified Code(s): J41.0 - Simple chronic bronchitis (4) Diabetes Current Visit: Yes Status: Acute Plan: Is currently only on glimperide. Will just cover her with an insulin sliding scale. Will check an a1c on the patient. Qualifiers: Diabetes mellitus type: type 2 Diabetes mellitus complication status: without complication (5) Non-compliance Current Visit: Yes Status: Acute Plan: Patient has a history of not showing to the office. As stated above she asked to be put under the hospitalist care. I have spoken with Dr. Johnson. He asked that I place her under Dr. Mukherjee's care. Please have him call me with any questions. (6) Congestive heart failure Current Visit: No Status: Acute Plan: Last echocardiogram done in nov showed severe pulmonary htn with a normal ef of 50% Right ventricular pressure was greater than 60%. Will consult Dr. Byers. Qualifiers: Heart failure type: right-sided Heart failure chronicity: chronic Qualif ied Code(s): I50.812 - Chronic right heart failure Discharge Plan: Home Plan to discharge in: Greater than 2 days - Advance Directives Does patient have a Living Will: No Does patient have a Durable POA for Healthcare: No - Code Status/Comfort Care Code Status Assessed: No Code Status: Full Code Physician Review: Patient Assessed, Agree with Above Assessment and Plan Critical Care: Yes Time Spent Managing Pts Care (In Minutes): 45
[2019-12-25] MEDS ORDERED: LEVALBUTEROL 0.63 MG/3 ML NEB NEB PRN ×2 (07:53→15:00)
[2019-12-25] MEDS ORDERED: Levofloxacin500mg IV 500 MG/100 ML BAG IV SCH (08:00)
[2019-12-25] MEDS: METOPROLOL TAR 50 MG TAB PO SCH ×2 (09:00→20:31)
[2019-12-25] MEDS: SPIRONOLACTONE 25 MG TABLET PO SCH ×2 (09:00→20:31)
[2019-12-25] MEDS: FUROSEMIDE 40 MG TABLET PO SCH ×2 (09:00→17:18)
[2019-12-25] MEDS: APIXABAN 5 MG TABLET PO SCH (09:00)
[2019-12-25 10:19] LABS: BUN Blood Urea Nitrogen 16 mg/dL (7-18); Bicarbonate 26 mmol/L (21-32); Glucose Level 359 mg/dL (74-106); Potassium 4.3 mmol/L (3.5-5.1); Sodium Level 132 mmol/L (136-145); Troponin I < 0.02 ng/mL (0.0-0.045)
[2019-12-25] MEDS: INSULIN -REGULAR HUMAN 50 UNIT/0.5 ML ML SQ SCH ×3 (11:30→20:59)
--- NOTE | 2019-12-25 11:38 | EKG ---
Test Date: 2019-12-25 Test Time: 03:15:20 Underwear Hemmer: ANDREY MEASUREMENT RESULTS: Intervals: Rate: 158 OR: QRSD: 76 QT: 288 QTc: 467 Hulen: P: OR: QRS: 118 T: -29 INTERPRETIVE STATEMENTS: Atrial fibrillation with rapid ventricular response Right axis deviation T wave abnormality, consider inferior ischemia or digitalis effect Abnormal ECG Compared to ECG 12/09/2019 05:17:52 Possible ischemia now present T-wave abnormality still present Electronically Signed On 12-25-19 11:37:13 CDT by Khurram Byers
[2019-12-25 12:05] VITALS: BMI 39.0
[2019-12-25] MEDS ORDERED: INSULIN -REGULAR HUMAN 50 UNIT/0.5 ML ML ONE ×3 (12:52→21:11)
[2019-12-25] MEDS ORDERED: PNEUMOCOCCAL VACCINE 0.5 ML IMVAC ONE (15:00)
[2019-12-25] MEDS ORDERED: CEFEPIME 2 GM VIAL IV SCH (17:00)
[2019-12-25] MEDS ORDERED: FUROSEMIDE 40 MG TABLET ONE (17:27)
[2019-12-25] MEDS: CEFEPIME/SWI 2gm 2 GM/20 ML SYR IVP SCH (17:36)
[2019-12-25] MEDS ORDERED: METOPROLOL TAR 50 MG TAB ONE (20:43)
[2019-12-25] MEDS: MORPHINE 2 MG/ML SYR IV PRN (23:53)
[2019-12-26] MEDS ORDERED: MORPHINE 2 MG/ML SYR ONE ×2 (00:05→21:12)
[2019-12-26] MEDS: CEFEPIME/SWI 2gm 2 GM/20 ML SYR IVP SCH ×3 (00:55→17:00)
[2019-12-26] MEDS ORDERED: PANTOPRAZOLE 40MG TABLET PO ONE (05:00)
[2019-12-26] MEDS: PANTOPRAZOLE 40MG TABLET PO SCH (06:00)
[2019-12-26] MEDS ORDERED: HOME MED 1 EA UNK (Pantoprazole Sodium [Protonix] 20 MG) PO SCH (06:00)
[2019-12-26 06:08] LABS: Absolute Lymphocytes (CBC) 0.9 K/uL (0.7-4.9); Basophils % 0.6 % (0-1.3); Hematocrit 34.9 % (36.0-45.0); Lymphocytes % 5.5 % (15.3-44.8); MPV 8.3 fL (7.6-11.3)
[2019-12-26 07:00] LABS: Albumin 2.6 g/dL (3.4-5.0); Bilirubin Total 2.5 mg/dL (0.2-1.0); Magnesium 2.3 mg/dL (1.8-2.4); Potassium 5.1 mmol/L (3.5-5.1); Protein, Total 7.7 g/dL (6.4-8.2)
[2019-12-26] MEDS: INSULIN -REGULAR HUMAN 50 UNIT/0.5 ML ML SQ SCH ×4 (07:30→21:10)
[2019-12-26 08:16] LABS: Protime INR 2.1
[2019-12-26] MEDS: SPIRONOLACTONE 25 MG TABLET PO SCH ×2 (08:23→21:09)
[2019-12-26] MEDS: APIXABAN 5 MG TABLET PO SCH (08:23)
[2019-12-26 08:33] LABS: Platelet Estimate ADEQ; Platelets, Giant FEW PRESENT
[2019-12-26 08:34] LABS: Blood Morphology Comment NOTED (NOT SEEN); Polychromasia 1+
[2019-12-26] MEDS: FUROSEMIDE 40 MG TABLET PO SCH (09:56)
[2019-12-26] MEDS ORDERED: FUROSEMIDE 40 MG TABLET ONE (10:06)
--- NOTE | 2019-12-26 10:12 | RAD REPORT ---
EXAM DESCRIPTION: US - Abdomen Exam Limited - 12/26/2019 9:18 am CLINICAL HISTORY: elevated LFTs/abdominal pain COMPARISON: None. FINDINGS: The gallbladder wall is not thickened. A gallstone is not seen. Moderate to large amount of gallbladder sludge The biliary tree is normal caliber. IMPRESSION: Gallbladder sludge
--- NOTE | 2019-12-26 11:27 | CON ---
Date of Consultation: 12/25/[address] Mukherjee's service on 12/25/2019. I saw the patient on 12/25/2019. Reason For Consultation: Atrial fibrillation. History Of Present Illness: Ms. 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 She has had CAD, bypass surgery, and heart stents. Came in complaining of shortness of breath. Denied any PND, but has had orthopnea and pedal edema. Has had palpitations, but no syncope. Denied any fever, chills, or cough. Symptoms had began the day of admission. Allergies: SHE IS ALLERGIC TO AMOXICILLIN. Review of Systems: Negative. Social History: Negative. Family History: Noncontributory. Medications: At home include venlafaxine 150 mg daily. She takes Protonix 40 mg daily. She is on i nsulin, metoprolol 25 mg b.i.d., glipizide, furosemide 40 mg b.i.d. She is on Eliquis. She is on in halers. Physical Examination: Vital Signs: When we saw her, her pulse was 137, blood pressure was 137/88. She has adequate O2 sat uration 94% on 2 L of nasal cannula. Her respiratory rate was 23. HEENT: Negative. Neck: Supple without any bruit, lymphadenopathy, JVD, or thyromegaly. Chest: Clear. Cardiac: Revealed atrial fibrillation. Abdomen: Benign.] Extremities: No clubbing, cyanosis, or edema. Neurologic: She was nonfocal. Skin: Dry and intact. Pulses were present distally bilaterally. Diagnostic Data: Her chest x-ray revealed congestive heart failure. Her EKG revealed atrial fibrill ation with rapid ventricular response. She had a normal creatinine of 1.03. Her white count was 16, 000. Her D-dimer was 2502 with a CTA that was pending. Her glucose was 416. Her BNP was 2986 with a negative troponin. Her COVID test was negative. Impression And Plan: 1.Paroxysmal atrial fibrillation, now with rapid ventricular response. 2.Acute on chronic diastolic congestive heart failure. Patient is presently on Lasix IV, metoprolol , and spironolactone, which is appropriate for her congestive heart failure and her atrial fibrillati on. We will increase her metoprolol dose. We will continue Eliquis. We will continue her antibioti cs, insulin, and spironolactone. If her atrial fibrillation remains an issue, we may have to conside r sotalol and/or cardioversion down the road. I think an echocardiogram is in order. Her other issu es including CAD, status post CABG, and stent appears to be stable. She also has COPD, history of CN S bleed that has resolved. We will continue to follow her. YASMEEN/KISHA Voice ID: [id number] Report ID: [id number]
[2019-12-26 12:37] LABS: Albumin 2.4 g/dL (3.4-5.0); Bilirubin Direct 1.7 mg/dL (0-0.2); Bilirubin Total 2.4 mg/dL (0.2-1.0); Protein, Total 7.6 g/dL (6.4-8.2)
--- NOTE | 2019-12-26 14:11 | PN ---
Date of Progress Note: 12/26/2019 Subjective: Ms. Elizabeth was admitted with congestive heart failure, rapid atrial fibrillation. Echocar diogram is pending for Saturday. Remains in atrial fibrillation in the 90s to 100s with intermittent s hortness of breath and intermittent confusion. She had a creatinine have increased. I am going to s top her beta jam, decrease her Lasix to once a day. I am going to put her on sotalol 80 mg 1 p.o . b.i.d. Hopefully that will convert her. She is already on anticoagulants. We will see what her e cho shows on Saturday before making further decisions. We may have to do a direct current cardioversio n on her. YASMEEN/KISHA Voice ID: [id number] Report ID: [id number]
--- NOTE | 2019-12-26 17:36 | P.PN ---
Subjective Date of Service: 12/26/19 Primary Care Provider: Jesse Chief Complaint: afib with RVR Subjective: No new changes Physical Examination - Vital Signs Temperature: 98.7 F Blood Pressure: 132/68 Pulse: 74 Respirations: 22 Pulse Ox (%): 98 - Physical Exam General: Oriented x3, Other (Awake, conversive, seems somewhat confused) HEENT: Mucous membr. moist/pink, Sclerae nonicteric Neck: Supple Respiratory: Diminished, Crackles/rales (At bases) Cardiovascular: Edema (1+), Irregular heart rate/rhythm Gastrointestinal: Soft and benign, Non-distended, No tenderness Musculoskeletal: No erythema, No tenderness Neurological: Normal affect - Studies Microbiology Data (last 24 hrs): 12/25/19 03:25 Blood - Blood Anaerobic Blood Culture - Final Assessment & Plan Physician Review Additional Text: Elevated LFTs GI Chronic AFib Community-acquired pneumonia Chronic diastolic CHF, severe pulmonary hypertension Restless leg syndrome DM2 Elevated LFTs and bilirubin -unclear etiology, new onset, significant elevation -patient reported some vague left upper quadrant abdominal discomfort last night -without any abdominal tenderness on exam today -concern for biliary obstruction vs due to CHF -will obtain stat RUQ U/S, GGT, Lipase, acetaminophen level, alcohol level, urine tox, acute hepatitis panel -reviewed CT done in the ED, Notable for diffusely heterogenous attenuation of the liver which is nonspecific vancomycin with underlying hepatocellular disease and her fatty infiltration. Increased density flaring in dependent portion of the bladder lumen which may represent sludge or small stones -if labs do not improve, patient worsens may need to be transferred to tertiary care center where GI is available, however pending further evaluation GI -likely due to lasix, however unclear at this time -possible due CHF, however patient not signficantly volume overloaded as she was during last admission -will consult nephrology AFib with RVR -initially started on Cardizem drip in the ED, and was being transitioned to metoprolol -cardiology consulted, discontinued metoprolol on started sotalol Community-acquired pneumonia -initially started on Levaquin, and but switched to cefepime due to history of AFib -patient has penicillin allergy listed in EMR, however she denies any allergy. She reports she is taking amoxicillin and Keflex without issues. Chronic diastolic CHF Severe pulmonary hypertension -recent echocardiogram was severe pulmonary hypertension, EF: 50%, RV pressure greater than 60% Chronic COPD -oxygen and nebs as needed Diabetes mellitus type 2 -insulin sliding scale Accu-Cheks q. a.c. HS -was very labile last admission, will monitor closely Restless leg syndrome -restart home pramipexole Dispo: Anticipate hospitalization > 2 days Also pending further evaluation of his elevated LFTs and bilirubin Time Spent Managing Pts Care (In Minutes): 40
[2019-12-26] MEDS: SOTALOL HCL 80 MG TAB PO SCH (18:00)
[2019-12-26] MEDS ORDERED: SOTALOL HCL 80 MG TAB ONE (18:19)
[2019-12-26] MEDS ORDERED: SPIRONOLACTONE 25 MG TABLET ONE (21:08)
[2019-12-26] MEDS: MORPHINE 2 MG/ML SYR IV PRN (21:10)
[2019-12-27] MEDS: CEFEPIME/SWI 2gm 2 GM/20 ML SYR IVP SCH ×2 (01:01→09:15)
[2019-12-27] MEDS: SOTALOL HCL 80 MG TAB PO SCH (05:20)
[2019-12-27] MEDS: PANTOPRAZOLE 40MG TABLET PO SCH (05:20)
[2019-12-27 05:29] LABS: Absolute Lymphocytes (CBC) 0.9 K/uL (0.7-4.9); Basophils % 1.2 % (0-1.3); Lymphocytes % 7.1 % (15.3-44.8); MPV 7.7 fL (7.6-11.3); RBC Red Blood Cell Count 4.31 M/uL (3.86-4.86)
[2019-12-27] MEDS ORDERED: PANTOPRAZOLE 40MG TABLET PO ONE (05:32)
[2019-12-27] MEDS ORDERED: SOTALOL HCL 80 MG TAB ONE (05:32)
[2019-12-27 05:58] LABS: Albumin 2.3 g/dL (3.4-5.0); Bilirubin Direct 1.2 mg/dL (0-0.2); Bilirubin Total 1.7 mg/dL (0.2-1.0); Potassium 4.4 mmol/L (3.5-5.1); Protein, Total 7.5 g/dL (6.4-8.2)
[2019-12-27] MEDS: INSULIN -REGULAR HUMAN 50 UNIT/0.5 ML ML SQ SCH ×2 (07:30→12:01)
[2019-12-27] MEDS ORDERED: INSULIN GLARGINE 100 UNITS/ML SQ SCH (08:00)
[2019-12-27] MEDS: APIXABAN 5 MG TABLET PO SCH (09:13)
[2019-12-27] MEDS: SPIRONOLACTONE 25 MG TABLET PO SCH (09:16)
[2019-12-27] MEDS: FUROSEMIDE 40 MG TABLET PO SCH (09:40)
[2019-12-27] MEDS ORDERED: INSULIN GLARGINE 100 UNITS/ML SQ ONE (09:51)
[2019-12-27] MEDS ORDERED: FUROSEMIDE 40 MG TABLET ONE (09:51)
--- NOTE | 2019-12-27 10:07 | P.PN ---
Subjective Date of Service: 12/27/19 Primary Care Provider: Jesse Chief Complaint: afib with RVR Subjective: Improving (Feeling better today, at 0 6 she is having some increased strength returned, breathing a little bit more comfortably Reports her urine was clear this morning - 1st time in several days Denies abdominal pain) Physical Examination - Vital Signs Temperature: 98.3 F Blood Pressure: 128/65 Pulse: 76 Respirations: 20 Pulse Ox (%): 100 - Physical Exam General: In no apparent distress, Oriented x3, Obese, Other (Responsive, able answer questions and follow conversation Mild but does appear sleepy) HEENT: Mucous membr. moist/pink Respiratory: Diminished (throughout), Crackles/rales (bilaterally, L>R) Cardiovascular: Edema (1+ bilaterally), Irregular heart rate/rhythm (Afib (HR: 70s)) Gastrointestinal: Soft and benign, Non-distended, No tenderness Integumentary: No rashes Neurological: Normal affect - Studies Microbiology Data (last 24 hrs): 12/25/19 03:20 Throat Culture & Sensitivity - Final NORMAL UPPER RESPIRATORY HUMAIRA GROWN. Assessment & Plan Physician Review Additional Text: Elevated LFTs GI Chronic AFib Community-acquired pneumonia Chronic diastolic CHF, severe pulmonary hypertension Restless leg syndrome DM2 Elevated LFTs and bilirubin -unclear etiology, new onset, significant elevation -patient reported some vague left upper quadrant abdominal discomfort the night prior, lasting only a few minutes -concern for biliary obstruction vs due to CHF / shock liver -RUQ U/S will obtain stat RUQ U/S, GGT, Lipase, acetaminophen level, alcohol level, urine tox, acute hepatitis panel -reviewed CT done in the ED, Notable for diffusely heterogenous attenuation of the liver which is nonspecific vancomycin with underlying hepatocellular disease and her fatty infiltration. Increased density flaring in dependent portion of the bladder lumen which may represent sludge or small stones -if labs do not improve, patient worsens may need to be transferred to tertiary care center where GI is available, however pending further evaluation GI -likely due to lasix, however unclear at this time -possible due CHF, however patient not signficantly volume overloaded as she was during last admission -will consult nephrology AFib with RVR -initially started on Cardizem drip in the ED, and was being transitioned to metoprolol -cardiology consulted, discontinued metoprolol on started sotalol Community-acquired pneumonia -initially started on Levaquin, and but switched to cefepime due to history of AFib -patient has penicillin allergy listed in EMR, however she denies any allergy. She reports she is taking amoxicillin and Keflex without issues. Chronic diastolic CHF Severe pulmonary hypertension -recent echocardiogram was severe pulmonary hypertension, EF: 50%, RV pressure greater than 60% Chronic COPD -oxygen and nebs as needed Diabetes mellitus type 2 -insulin sliding scale Accu-Cheks q. a.c. HS -was very labile last admission, will monitor closely Restless leg syndrome -restart home pramipexole Dispo: Anticipate hospitalization > 2 days Also pending further evaluation of his elevated LFTs and bilirubin
[2019-12-27 14:10] VITALS: O2SAT 98
--- NOTE | 2019-12-27 14:15 | P.CNS ---
Date of Consult: 12/26/19 Reason for Consult: GI Primary Care Provider: Jesse Chief Complaint: afib with RVR History of Present Illness: HPI Patient is a poor historian. A 64 Y/o woman with PMhx of DM ,CKD III baseline Cr ~1.2, HTN , CHF , restless leg syndrome and COPD Pt presented for weakness , fever and lt sided abdominal pain as per pt she was recently hospitalized at [facility] after fall and trauma pt ahd fever and decide to come to ER , in ER pt was hypotensive , with Afib and RVR Cr 1.3, her LFT significantly increased pt denied nausea, vomiting , diarrhea or constipation Physical exam general: AAOX3, in mild distress , obese Neck; Supple, No elevated JVD hear: irregular rhythm no murmur or rub Chest: CTAB, no rlaes or wheezes Abdomen: Soft , Nt Extremities Trace edema A/P GI on CKD III possibly due to Ischemic ATN +/- cardiorenal syndrome Abd CT : no hydro cont lasix and aldactione for now renal dose meds Afib with RVR now rate controlled elevated LFT improving plan to transfer for possible MRCP//ERCP DM SSI COPD cont inhalers CHF cont laisx andaldactone Allergies amoxicillin Adverse Reaction (Verified 12/09/19 12:49) Rash Home Medications: Apixaban [Eliquis] 5 mg PO BID 12/09/19 Cetirizine HCl [Allergy Relief] 10 mg PO DAILY 12/09/19 Fluticasone/Salmeterol [Advair 250-50 Diskus] 1 inh IH DAILY 12/09/19 Furosemide [Lasix*] 40 mg PO BIDL 12/09/19 Glipizide [Glipizide ER] 2.5 mg PO DAILY 12/09/19 Metoprolol Tartrate [Lopressor*] 25 mg PO BID 12/09/19 Pantoprazole Sodium [Protonix] 40 mg PO 0600 12/09/19 Pramipexole [Mirapex*] 0.25 mg PO DAILY 12/09/19 Trazodone HCl 50 mg PO BEDTIME PRN 12/09/19 Venlafaxine HCl [Venlafaxine HCl ER] 150 mg PO DAILY 12/09/19 Albuterol Neb [Proventil 0.083% Neb Soln] 2.5 mg NEB [id number] PRN #120 amp 12/15/19 Ipratropium Neb [Atrovent*] 0.5 mg NEB [id number] PRN #120 amp 12/15/19 Spironolactone [Aldactone*] 25 mg PO BID #60 tab 12/15/19 - Past Medical/Surgical History Diabetic: Yes -: DM 2 -: HTN -: COPD -: Restless leg syndrome -: restless leg syndrome -: obst airway per signif other. -: CAD -: Cardiac surgery -: Brain surgery for aneurysm - Social History Smoking Status: Unknown if ever smoked Alcohol use: No CD- Drugs: No Caffeine use: No Place of Residence: Home Physical Examination Temp Pulse Resp BP Pulse Ox 98.5 F 78 20 134/52 L 98 12/27/19 11:00 12/27/19 11:00 12/27/19 11:00 12/27/19 11:00 12/27/19 11:00
[2019-12-27 14:26] LABS: Barbiturates NEGATIVE (NEGATIVE); Benzodiazepines NEGATIVE (NEGATIVE); Cocaine NEGATIVE (NEGATIVE); METHAMPHETAM NEGATIVE (NEGATIVE); Methadone NEGATIVE (NEGATIVE); Opiates NEGATIVE (NEGATIVE); Phencyclidine NEGATIVE (NEGATIVE); THC Cannibis NEGATIVE (NEGATIVE)
[2019-12-27 15:25] VITALS: BP 127/62; TEMP 98.7
--- NOTE | 2019-12-27 16:07 | P.DS ---
Admission Date: 12/25/19 Discharge Date: 12/27/19 Primary Care Provider: Jesse Disposition: TRANSFER TO [facility] Discharge Condition: FAIR Reason for Admission: afib with RVR Consultations: Cardiology - Dr. Byers Nephrology - Dr. Lawton Procedures: COVID negative (12/24) CXR (12/24): Increased interstitial opacificiation is present along with significant cardiomegaly and vascular engorgement. Hazy ground-glass opacification is present in the lung tirado. Focally more prominent opacification is present in the mid and lower left lung field. Trachea is midline. Sternotomy wires are in place. No pneumothorax. Small pleural effusions are suspected. No acute bony abnormality is seen. no acute aortic findings suspected. CTA Chest (12/24): negative for PE, bilateral pleural effusions with predominantly left-sided pneumonia CT abd/pelv (12/24): Lung bases: patchy parenchymal opacification in the inferior hemitoraces likely due to a combination of fibrosis and atelectasis. There is a small focal area of airspace consolidation in the posterior left lower lobe with air bronchograms concerning for a pneumonic infiltrate. There are small bibasilar pleural effusions. The heart is enlarged. Liver: normal in size and configuration. There is diffusely heterogeneous attenuation of the liver without focal mass lesion. Findings could reflect underlying hepatocellular disease and/or fatty infiltration. Spleen: normal in size, configuration, and attenuation Gallbladder and bile duct: gallbladder is well distended. There is increased density layering in the dependent portion of the gallbladder lumen which may represent sludge or small stones. There is no biliary ductal dilatation. Pancreas: grossly normal in size and configuration. Adrenal Glands, Kidneys, Stomach, Bowel, Appendix, Vasculature, LAD - grossly normal/unremarkable. No free air or free fluid Abd U/S (12/25): gallbladder wall is not thickened. A gallstone is not seen. Moderate to large amount of gallbladder sludge. The biliary tree is normal caliber Problem List Elevated LFTs GI on CKDIII Chronic AFib Community-acquired pneumonia Chronic diastolic CHF, severe pulmonary hypertension Restless leg syndrome DM2, insulin dependent morbid obesity Brief History of Present Illness: Per HPI, patient is noncompliant and presented with a cough for the last 4 days associated with reddish sputum, Tmax: 100.8, and substernal chest pressure. In the ED she was found to be in Afib with RVR and concern for possible LLL pneumonia. She was started on a cardizem drip and admitted to the ICU. CT PE protocol negative for PE. Hospital Course: by problem list: Afib with RVR -Shortly after arrival to ICU patient's cardizem drip was discontinued by Cardiology. She was switched to PO metoprolol initially and then switched to Sotalol. Shortly after arrival to ICU her afib was rate controlled and remained in the 70-80s throughout the rest of her hospitalization. Patient has a h/o chronic afib. Left lower lobe Pneumonia - patient was started on Cefepime - EMR has her listed as having amoxicillin allergy, however she reported tolerating augmentin and keflex in the recent past without issue. Elevated LFTs - on the morning of 12/24, her LFTs were noted to significantly increase. Differential diagnosis was wide - shock liver vs ischemic hepatitis vs acute viral hepatitis vs obstruction vs cholangitis. Patient's blood pressure during her hospitalization remained stable mostly in 130-140s/60-70s, lowest BP was 122/62. On the night prior to the elevation, she did report some brief LUQ pain and review of initial CT in ED showed indication for CT as abdominal pain. Further labs were ordered (hepatitis panel, GGT, urine tox, acetaminophen level, EtOH level, LDH). Hepatitis panel and GGT were send outs and pending at time of transfer, urine tox, acetaminophen and EtOH level were negative/normal. A stat RUQ U/S was performed which was notable for moderate-large amount of biliary sludge, but no distended CBD. She remained afebrile and without abdominal discomfort. Her labs were repeated 6 hours later with mild decrease (as seen below). Patient reported feeling better on 12/24 compared to at time of admission. She was kept in the ICU due to the elevation of LFTs and uncertainty of etiology. She was noted to have mild scleral icterus and dark urine. Her labs were repeated on 12/26 while awaiting prior labs/workup to return. They improved as noted below. Her case was briefly discussed with general surgery who recommended further evaluation by GI, possible MRCP given the amount of sludge in her gallbladder. Due to the uncertainty of the etiology and possibility of a biliary system source, transfer to [facility] was initiated and she was accepted. 12/24 12/24 (noon) 12/25 12/26 Tbili (Dbili): 1.7 2.5 2.4 (1.7) 1.7 (1.2) AST: 112 2890 2622 1487 ALT: 91 967 949 808 Alkph: 230 204 195 203 LDH (12/26): 536 Uncontrolled DM2, insulin dependent - patient had notable Glc ranging from 190- 400 during hospitalization. Patient's glc were cautiously treated with insulin due to the her having extremes of hypo and hyperglycemia during her recent hospitalization 2 weeks ago (Due to CHF exacerbation) Chronic Diastolic CHF - recent admission, 2 weeks prior for exacerbation. Patient appears much less fluid overloaded on this admission compared to prior hospitalization, her edema was even improved compared to on day of prior discharge. She was treated with daily 40mg IV Lasix which was then switched to PO due to GI. TTE(12/09): EF: 50%, severe pulmonary hypertension, RV pressure > 60mmHg. GI on CKDIII- patient was noted to have rising creatinine (1.09 -> 1.03 -> 1.36 -> 1.43), nephrology was consulted, felt possibly ischemic ATN +/- cardiorenal Vital Signs/Physical Exam: Temp Pulse Resp BP Pulse Ox 98.7 F 84 20 127/62 99 12/27/19 15:00 12/27/19 15:00 12/27/19 15:00 12/27/19 15:00 12/27/19 15:00 General: Alert, In no apparent distress, Oriented x3, Other (occasionally closes eyes / seems to be sleepy during conversation) HEENT: Mucous membr. moist/pink Neck: JVD not distended Respiratory: Diminished, Crackles/rales (at bases bilaterally) Cardiovascular: Edema (1+ bilaterally), Irregular heart rate/rhythm (rate: 70s) Gastrointestinal: Soft and benign, Non-distended, No tenderness Musculoskeletal: No erythema, No tenderness Neurological: Normal affect, Abnormal speech (mild slurring of words when appears sleepy) Laboratory Data at Discharge: WBC 12.3 K/uL (4.3-10.9) H D 12/27/19 05:12 Hgb 11.7 g/dL (12.0-15.0) L 12/27/19 05:12 Hct 37.0 % (36.0-45.0) 12/27/19 05:12 Plt Count 218 K/uL (152-406) 12/27/19 05:12 PT 24.4 SECONDS (9.5-12.5) H 12/26/19 07:55 INR 2.10 12/26/19 07:55 APTT 32.5 SECONDS (24.3-36.9) 12/25/19 03:37 Sodium 134 mmol/L (136-145) L 12/27/19 05:12 Potassium 4.4 mmol/L (3.5-5.1) 12/27/19 05:12 BUN 33 mg/dL (7-18) H 12/27/19 05:12 Creatinine 1.43 mg/dL (0.55-1.3) H 12/27/19 05:12 Glucose 252 mg/dL (74-106) H 12/27/19 05:12 Magnesium 2.3 mg/dL (1.8-2.4) 12/26/19 05:06 Total Bilirubin 1.7 mg/dL (0.2-1.0) H 12/27/19 05:12 AST 1487 U/L (15-37) H* D 12/27/19 05:12 ALT 808 U/L (12-78) H* D 12/27/19 05:12 Alkaline Phosphatase 203 U/L (45-117) H 12/27/19 05:12 Troponin I < 0.02 ng/mL (0.0-0.045) 12/25/19 09:48 Triglycerides 54 mg/dL (<150) 12/26/19 05:06 Cholesterol 78 mg/dL (<200) 12/26/19 05:06 HDL Cholesterol 18 mg/dL (40-60) L 12/26/19 05:06 Cholesterol/HDL Ratio 4.33 12/26/19 05:06 Lipase 113 U/L (73-393) 12/26/19 05:06 Home Medications: Apixaban [Eliquis] 5 mg PO BID 12/09/19 Cetirizine HCl [Allergy Relief] 10 mg PO DAILY 12/09/19 Fluticasone/Salmeterol [Advair 250-50 Diskus] 1 inh IH DAILY 12/09/19 Furosemide [Lasix*] 40 mg PO BIDL 12/09/19 Glipizide [Glipizide ER] 2.5 mg PO DAILY 12/09/19 Metoprolol Tartrate [Lopressor*] 25 mg PO BID 12/09/19 Pantoprazole Sodium [Protonix] 40 mg PO 0600 12/09/19 Pramipexole [Mirapex*] 0.25 mg PO DAILY 12/09/19 Trazodone HCl 50 mg PO BEDTIME PRN 12/09/19 Venlafaxine HCl [Venlafaxine HCl ER] 150 mg PO DAILY 12/09/19 Albuterol Neb [Proventil 0.083% Neb Soln] 2.5 mg NEB [id number] PRN #120 amp 12/15/19 Ipratropium Neb [Atrovent*] 0.5 mg NEB [id number] PRN #120 amp 12/15/19 Spironolactone [Aldactone*] 25 mg PO BID #60 tab 12/15/19 Patient Discharge Instructions: Patient is to be transferred to [facility] in [place]. At time of discharge patient was being treated with. Eliquis 5 mg p.o. b.i.d. Lasix 40 mg p.o. daily. Insulin moderate sliding scale. Insulin glargine 10 units subcu with breakfast. Levalbuterol nebulizers q.4 hr. Protonix 40 mg daily. Pramipexole 0.25 mg q.h.s. Sotalol 80 mg b.i.d. Spironolactone 25 mg b.i.d. Diet: ADA Activity: Ad guy Time spent managing pt's care (in minutes): 50
[2019-12-27] MEDS ORDERED: PRAMIPEXOLE 0.25 MG TAB PO SCH (21:00)
--- NOTE | 2019-12-28 10:17 | PN ---
Date of Progress Note: 12/27/2019 Ms. Elizabeth has been admitted for congestive heart failure, atrial fibrillation. Yesterday, we switched her from metoprolol to sotalol 80 mg 1 p.o. b.i.d. She is on anticoagulants. This morning, she rem ains in atrial fibrillation, but her rate is controlled at 80. She still had an episode of altered m ental status and weakness intermittently that I doubt is related to her atrial fibrillation. Her kash st is clear. She has diuresed significantly. The case was discussed with Dr. Mukherjee. I will continu e her sotalol for now. Continue anticoagulation. Continue Lasix. I believe she has an echocardiogr am pending on Saturday. I would in the long run aim for sotalol and anticoagulant. She can go home wh enever it is okay with Dr. Mukherjee and if she continues to be in atrial fibrillation in about a week or 2, we will probably plan a direct current cardioversion. YASMEEN/KISHA Voice ID: [id number] Report ID: [id number]
--- NOTE | 2019-12-29 10:15 | RAD REPORT ---
EXAM DESCRIPTION: CT - Chest For Pe Angio - 12/25/2019 6:50 am CLINICAL HISTORY: SOB COMPARISON: None. TECHNIQUE: CT CHEST ANGIOGRAPHY WITH IV CONTRAST on 12/25/2019 4:50 AM CDT. MIPS reconstructions were generated. This exam was performed according to our departmental dose-optimization program, which includes autom ated exposure control, adjustment of the mA and/or kV according to patient size and/or use of iterati ve reconstruction technique. MIP images were generated. FINDINGS: Thoracic aorta is normal in course and caliber without aneurysm or dissection. Pulmonary a rteries are adequately opacified without acute or chronic filling defects. The heart is moderately enlarged. There is no pericardial effusion. Intrathoracic lymph nodes are not enlarged. There are bilateral small pleural effusions. Central airways are patent. There are patchy areas of ai rspace disease in the posterior left upper lobe as well as the left lower lobe. There are mild mosaic attenuation changes throughout both lungs. There are no acute abnormalities within the limited images of the upper abdomen. There are no acute osseous findings. No suspicious bony lesions. IMPRESSION: Cardiomegaly with no aortic dissection or aneurysm. No pulmonary embolus. Bilateral pleural effusions with predominantly left-sided pneumonia. Electronically signed by: Kai Gordon MD 12/25/2019 6:03 AM CDT Due to temporary technical issues with the PACS/Fluency reporting system, reports are being signed by the in house radiologist without review as a courtesy to ensure prompt reporting. The interpreting r adiologist is fully responsible for the content of the report.
--- NOTE | 2019-12-29 10:28 | RAD REPORT ---
EXAM DESCRIPTION: CT - Abdomen Pelvis W Contrast - 12/25/2019 6:50 am CLINICAL HISTORY: 64-year-old female with abdominal pain and worsening shortness of breath. TECHNIQUE: Axial CT imaging of the abdomen and pelvis was performed following the administration of intravenous contrast.. Oral contrast was not administered. Sagittal and coronal reconstructed image s were then performed. The CT study is performed according to ALARA (as low as reasonably achievabl e) or ALARA/IMAGE GENTLY, with automatic adjustment of mA and/or kV according to patient size. Performed on: 12/25/2019 at 5:24 AM. COMPARISON: No prior studies were available for comparison. FINDINGS: Lung bases: There is patchy parenchymal opacification in the inferior hemithoraces likely due to a combination of fibrosis and atelectasis. There is a small focal area of airspace consolidati on in the posterior left lower lobe with air bronchograms concerning for a pneumonic infiltrate. Ther e are small bibasilar pleural effusions. The heart is enlarged. Liver: The liver is normal in size and configuration. There is diffusely heterogeneous attenuation of the liver without focal mass lesion. Findings could reflect underlying hepatocellular disease and/or fatty infiltration. Spleen: The spleen is normal is size, configuration and attenuation. Gallbladder and bile duct: The gallbladder is well distended. There is increased density layering i n the dependent portion of the gallbladder lumen which may represent sludge or small stones. There is no biliary ductal dilatation. Pancreas: The pancreas is grossly normal in size and configuration. Adrenal Glands: The adrenal glands are normal in size and configuration. Kidneys: The kidneys are normal in size and configuration. There is no evidence of hydronephrosis. Th ere is no evidence of nephrolithiasis. No definite solid or cystic renal mass lesions are identified. Stomach: The stomach is grossly normal. There is no definite hiatal hernia. Bowel: The bowel gas pattern is non specific and non obstructive. Appendix: The appendix is not well visualized on this examination. Free air: There is no evidence of free air. Free fluid: There is no evidence of free fluid. Vasculature: The aorta is normal in caliber and contour. The inferior vena cava is grossly unremarkab le. Lymphadenopathy: No pathologic lymphadenopathy is identified. Bladder: The bladder is well distended and smooth in contour. Reproductive: The uterus is grossly within normal limits. Bones: No acute osseous abnormalities are identified. There are degenerative changes throughout the v isualized thoracolumbar spine. There is an old healed fracture of the right inferior pubic ramus. Soft tissues: There is infiltration of the subcutaneous fat along the anterior lower abdominal wall w hich may be due to inflammation and edema. There is also dependent edema within the dorsal subcutaneo us soft tissues in the mid lumbar region. There is subcutaneous emphysema along the lower anterior ab dominal wall of unclear etiology. This could be related to medication injection. IMPRESSION: 1. Diffusely heterogeneous attenuation of the liver which is nonspecific but can be seen with underlying hepatocellular disease and/or fatty infiltration. 2. Increased density layering in the dependent portion of the gallbladder lumen which may represent s ludge or small stones. 3. Suspect inflammation and edema along the lower anterior abdominal wall of unclear etiology. Additi onally, there is minimal subcutaneous emphysema which could be related to medication injection. There is also dependent edema within the dorsal subcutaneous soft tissues and mid lumbar region. 4. Patchy parenchymal opacification in the inferior hemithoraces likely due to a combination of fibro sis and atelectasis with a probable left lower lobe pneumonic infiltrate. There are small bilateral p leural effusions. 5. Cardiomegaly. Electronically signed by: Elizabeth Minaya DO 12/25/2019 6:20 AM CDT Due to temporary technical issues with the PACS/Fluency reporting system, reports are being signed by the in house radiologist without review as a courtesy to ensure prompt reporting. The interpreting r adiologist is fully responsible for the content of the report.
[2019-12-29 19:36] LABS: HBsAG Nonreactive (Nonreactive)
--- OUTSIDE RECORDS SUMMARY | 2019-12-30 18:17 | XMS REPORT | Clinical Summary ---
:1955 Author Organization [facility] Address [address] [place] [address] Care Team Providers Name Role Phone Unavailable Primary Care Provider Unavailable Allergies No Known Allergies Medications Medication Sig Dispensed Refills Start Date End Date Status pantoprazole (PROTONIX) Take 40 mg by 0 Suspended 40 MG tablet mouth daily. traZODone (DESYREL) 50 Take 50 mg by 0 Suspended MG tabletIndications: mouth nightly. insomnia associated with depression venlafaxine Take 150 mg by 0 Fabiana pended (EFFEXOR-XR) 150 MG 24 mouth daily. hr capsule metoprolol tartrate Take 25 mg by 0 Suspended (LOPRESSOR) 25 MG mouth 2 (two) tablet times daily. furosemide (LASIX) 40 Take 40 mg by 0 Suspended MG tablet mouth daily. pramipexole (MIRAPEX) Take 0.25 mg 0 Suspended 0.25 MG tablet by mouth daily. cetirizine (ZYRTEC) 10 Take 10 mg by 0 Suspended MG tablet mouth daily. glipiZIDE (GLUCOTROL Take 2.5 mg by 0 Suspended XL) 2.5 MG 24 hr tablet mouth daily. spironolactone Take 25 mg by 0 S uspended (ALDACTONE) 25 MG mouth daily. tablet potassium chloride Take by mouth 0 Suspended (KLOR-CON) 10 MEQ CR daily. tablet apixaban (ELIQUIS) 5 mg Take 5 mg by 0 Suspended Tab tablet mouth 2 (two) times daily. Active Problems Problem Noted Date Atrial fibrillation 12/29/2019 DM (diabetes mellitus), type 2 12/29/2019 Transaminasemia 12/29/2019 GI (acute kidney injury) 12/29/2019 CHF (congestive heart failure) 12/27/2019 Encounters Date Type Specialty Care Team Description 12/27/2019 Hospital Encounter General Internal Brittani Dixon liver enzymes; Medicine Betty Acute kidney in jury (HCC); MD Theodore Atrial fibrillation, unspecified type (H CC); Henna Gonzalez on chroni c combined systolic and diastolic congestive heart failure (HCC) MD Alexander Russell Neeraj, MD 12/22/2019 Orders Only General Internal Medicine after 12/29/2018 Social History Tobacco Use Types Packs/Day Years Used Date Never Assessed Sex Assigned at Date Recorded Not on file Job Start Date Occupation Industry Not on file Not on file Not on file Travel History Travel Start Travel End No recent travel history available. Last Filed Vital Signs Vital Sign Reading Time Taken Blood Pressure 130/60 12/30/2019 4:00 PM CDT Pulse 80 12/30/2019 4:00 PM CDT Temperature 36.2 C (97.2 F) 12/30/2019 4:00 PM CDT Respiratory Rate 18 12/30/2019 4:00 PM CDT Oxygen Saturation 100% 12/30/2019 4:00 PM CDT Inhaled Oxygen Concentration - - Weight 90.9 kg (200 lb 4.8 oz) 12/30/2019 5:42 AM CDT Height 152.4 cm (5') 12/27/2019 11:31 PM CDT Body Mass Index 39.12 12/30/2019 5:42 AM CDT Plan of Treatment Date Type Specialty Care Team Description 12/31/2019 Surgery Castro Nazario MD R & L CATH / CORONARY ANGIOS [address] / PCI [place] [address] [place], [place] [address] [phone] Health Maintenance Due Date Last Done Comments BREAST CANCER SCREENING 1955 COLON CANCER SCREENING COLONOSCOPY 1955 DIABETIC EYE EXAM 1965 DIABETIC FOOT EXAM 1965 URINE MICROALBUMIN 1964 CERVICAL CANCER SCREENING PAP ONLY (Age 21-65) 08/19/1975 Medicare IPPE (WELCOME TO MEDICARE) 08/24/2019 INFLUENZA VACCINE (#1) 2019 HEMOGLOBIN A1C 03/29/2020 12/28/2019 PNEUMOCOCCAL 65+ LOW/MEDIUM RISK (2 of 2 - PCV13) 12/08/2020 12/09/2019 LIPID PANEL 12/27/2022 12/28/2019 Procedures The patient is currently admitted. The information in this section might not be complete until the patient is discharged. Procedure Name Priority Date/Time Associated Diagnosis Comme nts POCT-GLUCOSE METER Routine 12/30/2019 4:26 PM Re sults for this CDT procedure are i n the results section. XR CHEST 1 VIEW Routine 12/30/2019 4:21 PM Resul ts for this PORTABLE/BEDSIDE CDT procedure a re in the results section. RHYTHM STRIP - SCAN 12/30/2019 3:26 PM CDT POCT-GLUCOSE METER Routine 12/30/2019 11:47 AM Re sults for this CDT procedure are i n the results section. TREADMILL Routine 12/30/2019 9:09 AM Results for this TOLERANCE(NON-NUCLE CDT procedur e are in AR TREADMILL) the results section. ECG 12-LEAD Routine 12/30/2019 9:08 AM CDT Procedure Note - Interface, External Ris In - 12/30/2019 9:31 AM CDT Ventricular Rate 96 BPM Atrial Rate 122 BPM QRS Duration 80 ms Q-T Interval 390 ms QTC Calculation(Bazett) 492 ms R [place] 104 degrees T [place] -51 degrees Atrial fibrillation Rightward axis Nonspecific T wave abnormali ty , probably digitalis effect Prolonged QT Abnormal ECG NM MYOCARDIAL PERFUSION Routine 12/30/2019 9:01 AM CDT Results for this PET/CT (REST & STRESS) proce dure are in the results section . (MANUAL DIFFERENTIAL) Routine 12/30/2019 6:09 AM CDT Results for this procedure are i n the results section . CBC W/PLT COUNT & AUTO Routine 12/30/2019 6:09 AM CDT Results for this DIFFERENTIAL procedure are i n the results section . HEPARIN ASSAY - LOW Routine 12/30/2019 6:09 AM CDT Results for this MOLECULAR WEIGHT procedure a re in the results section . LIPID PANEL Routine 12/30/2019 6:09 AM CDT Resu lts for this procedure are i n the results section . LACTATE DEHYDROGENASE (LDH) Routine 12/30/2019 6:09 AM CDT Results for this procedure are i n the results section . PERIPHERAL BLOOD SMEAR - Routine 12/30/2019 6:09 AM CDT Results for this PATHOLOGIST REVIEW procedure are in the results section . PROTHROMBIN TIME/INR Routine 12/30/2019 6:09 AM CDT Results for this procedure are i n the results section . HEPATIC FUNCTION PANEL Routine 12/30/2019 6:09 AM CDT Results for this procedure are i n the results section . MAGNESIUM Routine 12/30/2019 6:09 AM CDT Resu lts for this procedure are i n the results section . CBC W/PLT COUNT & AUTO Routine 12/30/2019 6:09 AM CDT Results for this DIFFERENTIAL procedure are i n the results section . PHOSPHORUS Routine 12/30/2019 6:09 AM CDT Resu lts for this procedure are i n the results section . CALCIUM, IONIZED Routine 12/30/2019 6:09 AM CDT Results for this procedure are i n the results section . BASIC METABOLIC PANEL (7) Routine 12/30/2019 6:09 AM CDT Results for this procedure are i n the results section . POCT-GLUCOSE METER Routine 12/29/2019 8:34 PM CDT Results for this procedure are i n the results section . POCT-GLUCOSE METER Routine 12/29/2019 4:33 PM CDT Results for this procedure are i n the results section . POCT-GLUCOSE METER Routine 12/29/2019 12:07 PM CDT Results for this procedure are i n the results section . POCT-GLUCOSE METER Routine 12/29/2019 7:49 AM CDT Results for this procedure are i n the results section . NAVI TITER AND PATTERN Routine 12/29/2019 6:21 AM CDT Results for this procedure are i n the results section . PROTHROMBIN TIME/INR Routine 12/29/2019 6:21 AM CDT Results for this procedure are i n the results section . ANTI-NUCLEAR ANTIBODY (NAVI) Routine 12/29/2019 6:21 AM CDT Results for this procedure are i n the results section . HEPATITIS B SURFACE ANTIGEN Routine 12/29/2019 6:21 AM CDT Results for this procedure are i n the results section . HEPATITIS B SURFACE ANTIBODY Routine 12/29/2019 6:21 AM CDT Results for this procedure are i n the results section . HEPATITIS B CORE ANTIBODY, Routine 12/29/2019 6:21 AM CDT Results for this IGM procedure are i n the results section . HEPATITIS A ANTIBODY, IGM Routine 12/29/2019 6:21 AM CDT Results for this procedure are i n the results section . MAGNESIUM Routine 12/29/2019 6:21 AM CDT Resu lts for this procedure are i n the results section . PHOSPHORUS Routine 12/29/2019 6:21 AM CDT Resu lts for this procedure are i n the results section . HEPATIC FUNCTION PANEL Routine 12/29/2019 6:21 AM CDT Results for this procedure are i n the results section . BASIC METABOLIC PANEL (7) Routine 12/29/2019 6:21 AM CDT Results for this procedure are i n the results section . (CELLAVISION MANUAL DIFF) Routine 12/29/2019 6:20 AM CDT Results for this procedure are i n the results section . CBC W/PLT COUNT & AUTO Routine 12/29/2019 6:20 AM CDT Results for this DIFFERENTIAL procedure are i n the results section . CALCIUM, IONIZED Routine 12/29/2019 6:20 AM CDT Results for this procedure are i n the results section . CBC W/PLT COUNT & AUTO Routine 12/29/2019 6:20 AM CDT Results for this DIFFERENTIAL procedure are i n the results section . US ABDOMINAL WITH DOPPLER Routine 12/28/2019 10:40 PM CDT Results for this procedure are i n the results section . POCT-GLUCOSE METER Routine 12/28/2019 8:42 PM CDT Results for this procedure are i n the results section . POCT-GLUCOSE METER Routine 12/28/2019 4:39 PM CDT Results for this procedure are i n the results section . POCT-GLUCOSE METER Routine 12/28/2019 11:37 AM CDT Results for this procedure are i n the results section . 2D ECHO W/ DOPPLER Routine 12/28/2019 8:47 AM CDT Results for this (CW/PW/COLOR) procedure are in the results section . POCT-GLUCOSE METER Routine 12/28/2019 8:31 AM CDT Results for this procedure are i n the results section . VENOUS DOPPLER LEG, LEFT Routine 12/28/2019 8:10 AM CDT Results for this procedure are i n the results section . HEMOGLOBIN A1C Routine 12/28/2019 6:25 AM CDT Re sults for this procedure are i n the results section . (CELLAVISION MANUAL DIFF) Routine 12/28/2019 6:24 AM CDT Results for this procedure are i n the results section . CBC W/PLT COUNT & AUTO Routine 12/28/2019 6:24 AM CDT Results for this DIFFERENTIAL procedure are i n the results section . AMMONIA Routine 12/28/2019 6:24 AM CDT Resu lts for this procedure are i n the results section . CBC W/PLT COUNT & AUTO Routine 12/28/2019 6:24 AM CDT Results for this DIFFERENTIAL procedure are i n the results section . PHOSPHORUS Routine 12/28/2019 6:24 AM CDT Resu lts for this procedure are i n the results section . LIPID PANEL Routine 12/28/2019 6:24 AM CDT Resu lts for this procedure are i n the results section . MAGNESIUM Routine 12/28/2019 6:24 AM CDT Resu lts for this procedure are i n the results section . HEPATIC FUNCTION PANEL Routine 12/28/2019 6:24 AM CDT Results for this procedure are i n the results section . BASIC METABOLIC PANEL (7) Routine 12/28/2019 6:24 AM CDT Results for this procedure are i n the results section . TROPONIN I Routine 12/28/2019 6:24 AM CDT Resu lts for this procedure are i n the results section . SODIUM, RANDOM URINE Routine 12/28/2019 2:19 AM CDT Results for this procedure are i n the results section . UREA NITROGEN, RANDOM URINE Routine 12/28/2019 2:19 AM CDT Results for this procedure are i n the results section . CREATININE, RANDOM URINE Routine 12/28/2019 2:19 AM CDT Results for this procedure are i n the results section . SARS-COV2/RT-PCR (SLHS & REF Routine 12/27/2019 9:31 PM CDT Results for this LABS) procedure are i n the results section . POCT-GLUCOSE METER Routine 12/27/2019 9:16 PM CDT Results for this procedure are i n the results section . CBC W/PLT COUNT & AUTO Routine 12/27/2019 6:28 PM CDT Results for this DIFFERENTIAL procedure are i n the results section . B-TYPE NATRIURETIC FACTOR Routine 12/27/2019 6:28 PM CDT Results for this (BNP) procedure are i n the results section . CBC W/PLT COUNT & AUTO Routine 12/27/2019 6:28 PM CDT Results for this DIFFERENTIAL procedure are i n the results section . HEPATIC FUNCTION PANEL Routine 12/27/2019 6:28 PM CDT Results for this procedure are i n the results section . BASIC METABOLIC PANEL (7) Routine 12/27/2019 6:28 PM CDT Results for this procedure are i n the results section . TROPONIN I Routine 12/27/2019 6:28 PM CDT Resu lts for this procedure are i n the results section . POCT-GLUCOSE METER Routine 12/27/2019 6:20 PM CDT Results for this procedure are i n the results section . XR CHEST 1 VIEW Routine 12/27/2019 5:50 PM CDT R esults for this PORTABLE/BEDSIDE procedure a re in the results section . ECG 12-LEAD Routine 12/22/2019 2:04 PM CDT Resu lts for this procedure are i n the results section . after 12/29/2018 Results POC-Glucose meter (12/30/2019 4:26 PM CDT)Only the most recent of12 results within the time period is included. POC-Glucose Meter 88Comment: : TESTED AT 70 - 110 mg/dL [facility] [address] [place] [address], [id number]: Testing Shaking Shipping/Valet Parker ID = [id number] for NESS [place] Specimen Blood Performing Organization Address City/State/Zipcode Phone Number [address] [phone] CENTER XR chest 1 view portable / bedside (12/30/2019 4:21 PM CDT)Only the most recent of2 resultswithin the time period is included. Specimen Narrative Performed At FINAL REPORT GE RIS EXAM: Chest one view COMPARISON: December 27, 2019 CLINICAL HISTORY: Dyspnea FINDINGS: There is persistent cardiomega ly. There is no evidence of pulmonary consolidation, pleural effusio n, or pneumothorax. The regional osseous structures are unremark able. Signed: Rodrigo Israel MD Report Verified Date/Time:12/30/2019 16:52:28 Reading Location: [facility] [id number] Consult [facility] Procedure Note Interface, External Ris In - 12/30/2019 4:54 PM CDT FINAL REPORT EXAM: Chest one view COMPARISON: December 27, 2019 CLINICAL HISTORY: Dyspnea FINDINGS: There is persistent cardiomega ly. There is no evidence of pulmonary consolidation, pleural effusio n, or pneumothorax. The regional osseous structures are unremark able. Signed: Rodrigo Israel MD Report Verified Date/Time: 12/30/2019 1 6:52:28 Reading Location: [address] Room Performing Organization Address City/State/Zipcode Phone Number [employer] RIS RHYTHM STRIP - SCAN (12/30/2019 3:26 PM CDT) Narrative Performed At This result has an attachment that is no t available. Treadmill tolerance(Non-Nuclear Treadmill) (12/30/2019 9:09 AM CDT) Specimen Narrative Performed At Protocol Name RegValnevaoson [employer] MUSE Time In Exercise Phase 00:01:00 Max. Systolic BP 127 mmHg Max Diastolic BP 82 mmHg Max Heart Rate 102 BPM Max Predicted Heart Rate 155 BPM Reason For Termination Predetermined end point Reason for Test Coronary arterydisea se Evaluation/Hx ACB Target HR Formula (220 - Age)*100% Arrhythmias Premature Ventricular Contra ctions Resting ECG Atrial Fibrillation,RAD,Infe rior Twave inversion ST Changes No Significant Changes Overall Impression Indeterminate due to pharmacological stress* Chest Pain none HR Response To Exercise BP Response To Exercise Eliquis,Sotalol,Aldactone Confirmed by fellow Bryant Barrios ([id number]) on 12/30/2019 9:43:33 AM Confirmed by Pineda Sweet [id number]) on 12/30/2019 3:06:46 PM Procedure Note Interface, External Ris In - 12/30/2019 3:07 PM CDT Protocol Name Regadenoson Time In Exercise Phase 00:01:00 Max. Systolic BP 127 mmHg Max Diastolic BP 82 mmHg Max Heart Rate 102 BPM Max Predicted Heart Rate 155 BPM Reason For Termination Predetermined end point Reason for Test Coronary artery disease Evaluation/Hx ACB Target HR Formula (220 - Age)*100% Arrhythmias Premature Ventricular Contra ctions Resting ECG Atrial Fibrillation,RAD,Infe rior Twave inversion ST Changes No Significant Changes Overall Impression Indeterminate due to pharmacological stress* Chest Pain none HR Response To Exercise BP Response To Exercise Eliquis,Sotalol,Aldactone Confirmed by fellow Bryant Barrios ([id number]) on 12/30/2019 9:43:33 AM Confirmed by Pineda Sweet [id number]) on 12/29 3:06:46 PM Performing Organization Address City/State/Zipcode Phone Number [employer] [place] A [place] Myocardial Perfusion Pet/CT (Rest & Stress) (12/30/2019 9:01 AM CDT) Specimen Narrative Performed At FINAL REPORT [employer] PROCEDURE: MYOCARDIAL PERFUSION PET/CT I ADDIE (Rest/Stress) CPT CODE: 90552 INDICATION: CAD, obesityBMI=39 CARDIOVASCULAR PROFILE: CAD History: Known CAD with history of c oronary artery bypass graft surgery, CHF, abnormal EKG; atrial fibri llation with rapid ventricular response, obesity Symptoms: Dyspnea Risk Factors: Diabetes, hypertension, ob esity, history of stroke BMI: 39.1 Medications: Eliquis, sotalol, Aldactone STRESS PROTOCOL: Pharmacologic stress was achieved with a 10-second intravenous infusion of regadenoson 0.4 mg. The radi opharmaceutical was administered 30 seconds after the start of the regadenoson infusion. IMAGING PROTOCOL: Limited low-dose CT imaging was performe d for attenuation correction. 40.2 mCi of Rb-82 chloride was injected intravenously at rest, and gated PET images were obtained. Then, 40 .2 mCi of Rb-82 chloride was injected intravenously at peak stress, a nd gated PET images were obtained. Image quality is good. REST FINDINGS: HR: 88/min BP: 130/78 mmHg Prelim. EKG: Atrial fibrillation, right axis deviation, inferior T wave inversions. Perfusion: Normal. Wall Motion: Normal (LVEF 47%). LV Volume: Normal. STRESS FINDINGS: HR: 102/min (65% of MPHR) BP: 127/82 mmHg Prelim. EKG: No ischemic changes. Symptoms: Headache, dyspnea (treatment n ot required). Perfusion: There is a medium size, mild severity, perfusion defect involving the mid-anterior and mid-anter oseptal segments of the LV, as well as the apical and periapical seg ments. Wall Motion: Mild generalized LV hypokin esis (LVEF 46%). LV Volume: Not significantly changed fro m rest. IMPRESSION: 1. Abnormal study. 2. Abnormal myocardial perfusion. There is a medium size, mild severity, reversible perfusion abnormali ty in the mid anterior, anteroseptal, and apical/periapical LV. 3. Mildly decreased resting LVEF, which does not deteriorate with pharmacologic stress. 4. Normal extracardiac tracer distributi on. 5. There is no prior study for compariso n. Signed: Adele Porter MD Report Verified Date/Time:12/30/2019 10:39:01 Reading Location: [address] Reading Room Procedure Note Interface, External Ris In - 12/30/2019 10:41 AM CDT FINAL REPORT PROCEDURE: MYOCARDIAL PERFUSION PET/CT I MAGING (Rest/Stress) CPT CODE: 35650 INDICATION: CAD, obesity BMI=39 CARDIOVASCULAR PROFILE: CAD History: Known CAD with history of c oronary artery bypass graft surgery, CHF, abnormal EKG; atrial fibri llation with rapid ventricular response, obesity Symptoms: Dyspnea Risk Factors: Diabetes, hypertension, ob esity, history of stroke BMI: 39.1 Medications: Eliquis, sotalol, Aldactone STRESS PROTOCOL: Pharmacologic stress was achieved with a 10-second intravenous infusion of regadenoson 0.4 mg. The radi opharmaceutical was administered 30 seconds after the start of the regadenoson infusion. IMAGING PROTOCOL: Limited low-dose CT imaging was performe d for attenuation correction. 40.2 mCi of Rb-82 chloride was injected intravenously at rest, and gated PET images were obtained. Then, 40 .2 mCi of Rb-82 chloride was injected intravenously at peak stress, a nd gated PET images were obtained. Image quality is good. REST FINDINGS: HR: 88/min BP: 130/78 mmHg Prelim. EKG: Atrial fibrillation, right axis deviation, inferior T wave inversions. Perfusion: Normal. Wall Motion: Normal (LVEF 47%). LV Volume: Normal. STRESS FINDINGS: HR: 102/min (65% of MPHR) BP: 127/82 mmHg Prelim. EKG: No ischemic changes. Symptoms: Headache, dyspnea (treatment n ot required). Perfusion: There is a medium size, mild severity, perfusion defect involving the mid-anterior and mid-anter oseptal segments of the LV, as well as the apical and periapical seg ments. Wall Motion: Mild generalized LV hypokin esis (LVEF 46%). LV Volume: Not significantly changed fro m rest. IMPRESSION: 1. Abnormal study. 2. Abnormal myocardial perfusion. There is a medium size, mild severity, reversible perfusion abnormali ty in the mid anterior, anteroseptal, and apical/periapical LV. 3. Mildly decreased resting LVEF, which does not deteriorate with pharmacologic stress. 4. Normal extracardiac tracer distributi on. 5. There is no prior study for compariso n. Signed: Adele Porter MD Report Verified Date/Time: 12/30/2019 1 0:39:01 Reading Location: [address] [id number] [facility] Reading Room Performing Organization Address City/State/Zipcode Phone Number GE RIS Manual Differential (12/30/2019 6:09 AM CDT) % Neutros (manual) 70 % [facility] % Lymphs (manual) 8 % [facility] % Monos (manual) 8 % [facility] % Eos (manual) 2 % [facility] % Baso (manual) 1 % [facility] % Metamyelo (manual) 2 (H) 0 - 0 % [facility] % Myelo (manual) 5 (H) 0 - 0 % [facility] % Bands (manual) 3 0 - 10 % [facility] % Atypical Lymphs 1 (H) 0 - 0 % [facility] # Neutros (manual) 6.30 1.80 - 8.00 K/L [facility] # Lymphs (manual) 0.72 (L) 1.48 - 4.50 K/L [facility] # Monos (manual) 0.72 0.00 - 1.30 K/L [facility] # Eos (manual) 0.18 0.00 - 0.50 K/L [facility] # Baso (manual) 0.09 0.00 - 0.20 K/L [facility] # Metamyelo (manual) 0.18 (H) 0.00 - 0.00 K/L [facility] # Bands (manual) 0.3 0.0 - 0.8 K/L [facility] # Atypical Lymphs 0.09 (H) 0.00 - 0.00 K/L [facility] # Myelo (manual) 0.45 (H) 0.00 - 0.00 K/L [facility] Total Counted 100 [facility] Bands plus Segmented 6.57 [facility] WBC Morphology Normal [facility] Platelet Morphology Normal [facility] Anisocytosis 1+ few [facility] Polychromasia 1+ few [facility] Specimen Blood Performing Organization Address City/[facility]/Zipcode Phone Number [address] [phone] [place] Peripheral Blood Smear - Path Review (12/30/2019 6:09 AM CDT) Pathologist Review Mild normocytic normochromic [facility] anemia, moderate [facility] anisopoikilocytosis and polychromasia. Left shifted WBCs with occasional myeloid precursors. No blasts seen. Adequate platelets with essentially unremarkable morphology. Pathologist: Mirian Beck M.D C [facility] ER Specimen Blood Performing Organization Address City/[facility]/Zipcode Phone Number [address] [phone] [place] Heparin Assay - Low Molecular Weight (12/30/2019 6:09 AM CDT) Anti 10A-Lovenox 1.81 0.60 - 2.00 u/ml [facility] Specimen Blood Narrative Performed At Anti-Factor 10-A Level (Heparin Assay for Low [facility] Molecular Weight Heparin) Monitoring Guidelines: Blood samples should be obtained 4 hours post subcutaneous injection (time of Peak level) Therapeutic Peak Levels: 0.6-1.0 units/mLtwice daily enoxapa rin 1.0-2.0 units/mLonce daily enoxapar in Ref: CHEST 2012;[id number] Performing Organization Address [facility] Phone Number [address] [address] CENTER Calcium, Ionized (12/30/2019 6:09 AM CDT)Only the most recent of2 resultswithin the time period is included. Calcium, Ion 1.15 1.12 - 1.27 mmol/L [facility] pH, Blood 7.34 [facility] Specimen Blood Performing Organization Address [facility] Phone Number [address] [phone] [place] CBC with platelet count + automated diff (12/30/2019 6:09 AM CDT)Only the most recent of4 resultswithin the time period is included. WBC 9.0 3.5 - 10.5 K/L [facility] RBC 4.05 3.93 - 5.22 M/L [facility] Hemoglobin 10.6 (L) 11.2 - 15.7 GM/DL [facility] Hematocrit 36.7 34.1 - 44.9 % [facility] MCV 90.6 79.4 - 94.8 fL [facility] MCH 26.2 25.6 - 32.2 pg [facility] MCHC 28.9 (L) 32.2 - 35.5 GM/DL [facility] RDW 18.3 (H) 11.7 - 14.4 % [facility] Platelets 206 150 - 450 K/CU MM [facility] MPV 8.9 (L) 9.4 - 12.3 fL [facility] nRBC 0 0 - 0 /100 WBC [facility] [facility] Specimen Blood Performing Organization Address City/[facility] Cent[facility]ode Phone Number [address] [address] CENTER Prothrombin time/INR (12/30/2019 6:09 AM CDT)Only the most recent of2 results within the time period is included. Protime 20.5 (H) 11.9 - 14.2 seconds [facility] INR 1.81 <=5.90 [facility] Specimen Blood Narrative Performed At Effective 08/20/2018: PT Reference Range [facility] Change New: 11.9-14.2Previous: 11.7-14.7 RECOMMENDED COUMADIN/WARFARIN INR THERAPY RANGES STANDARD DOSE: 2.0-3.0Includes: PROPHYLAXIS for venous thrombosis, systemic embolization; TREATMENT for venous thrombosis and/or pulmonary embolus. HIGH RISK: Target INR is 2.5-3.5 for patients wiht mechanical heart valves. Performing Organization Address [facility] [place] [facility] Cent[facility]owa Phone Number [address] [address] CENTER Phosphorus (12/30/2019 6:09 AM CDT)Only the most recent of3 resultswithin the time period is included. Phosphorus 2.8 2.3 - 4.7 mg/dL [facility] Specimen Blood Narrative Performed At Testing Shaking Shipping OLIVER Higgins [facility] Performing Organization Address City/[facility]/Zipcode Phone Number [address] [address] CENTER Magnesium (12/30/2019 6:09 AM CDT)Only the most recent of3 resultswithin the time period is included. Magnesium 1.8 1.6 - 2.6 mg/dL [facility] Specimen Blood Narrative Performed At Testing Shaking Shipping ID - PEYMAN Higgins [facility] Performing Organization Address [facility]owa Phone Number [address] [address] [place] Lactate dehydrogenase (LDH) (12/30/2019 6:09 AM CDT) LDH 423 (H) 125 - 220 U/L [facility] Specimen Blood Narrative Performed At Testing Shaking Shipping ID - PEYMAN [facility] Performing Organization Address [facility] Phone Number [address] [address] [place] Hepatic function panel (12/30/2019 6:09 AM CDT)Only the most recent of4 results within the time period is included. Protein, Total 7.2 6.0 - 8.3 gm/dL [facility] Albumin 3.0 (L) 3.5 - 5.0 g/dL [facility] Total Bilirubin 1.0 0.2 - 1.2 mg/dL [facility] Bilirubin, Direct 0.8 (H) 0.1 - 0.5 mg/dL [facility] Alkaline Phosphatase 167 (H) 40 - 150 U/L [facility] AST 595 (H) 5 - 34 U/L [facility] ALT 562 (H) 6 - 55 U/L [facility] Specimen Blood Narrative Performed At Testing Shaking Shipping [place] - [facility] Performing Organization Address [facility] Phone Number [address] [place] [address] [place] Lipid panel (12/30/2019 6:09 AM CDT)Only the most recent of2 resultswithin the time period is included. Triglycerides 88 mg/dL [facility] Cholesterol 108 mg/dL [facility] HDL 15 mg/dL [facility] LDL Calculated 75 mg/dL [facility] Specimen Blood Narrative Performed At Triglyceride Reference Range: [facility] Low Risk <150 [id number] High Risk 200-499 Very High Risk>=500 Cholesterol Reference Range: Low Risk <200 [id number] High Risk>240 HDL Cholesterol Reference Range: Low Risk >=60 High Risk <40 LDL Cholesterol Reference Range: Optimal<100 Near [id number] Very High >=190 Testing [employer] OLIVER Higgins Performing Organization Address City/State/Zipcode Phone Number [address] [address] [place] Basic Metabolic Panel (12/30/2019 6:09 AM CDT)Only the most recent of4 results within the time period is included. Sodium 137 136 - 145 meq/L [facility] Potassium 4.4 3.5 - 5.1 meq/L [facility] Chloride 99 98 - 107 meq/L [facility] CO2 30 (H) 22 - 29 meq/L [facility] BUN 17 7 - 21 mg/dL [facility] Creatinine 0.82 0.57 - 1.25 mg/dL [facility] Glucose 106 (H) 70 - 105 mg/dL [facility] Calcium 8.4 8.4 - 10.2 mg/dL [facility] EGFR 70Comment: ESTIMATED GFR IS mL/min/1.73 sq m [facility] NOT ACCURATE [facility] CLEARANCE IN PREDICTING GLOMERULAR FILTRATION RATE. ESTIMATED GFR IS NOT APPLICABLE FOR DIALYSIS PATIENTS. Specimen Blood Narrative Performed At Testing Shaking Shipping ID - PEYMAN Higgins [facility] Performing Organization Address City/State/Zipcode Phone Number [facility] [address] [place] [address] CENTER Hepatitis A antibody, IgM (12/29/2019 6:21 AM CDT) Hep A IgM Nonreactive Nonreactive [facility] Specimen Blood Narrative Performed At Testing Shaking Shipping ID - PARKER Laguerre [facility] Performing Organization Address City/[facility]/Zipcode Phone Number [address] [address] CENTER NAVI Titer & Pattern (12/29/2019 6:21 AM CDT) NAVI Titer 1:160 [facility] NAVI Pattern Homogeneous [facility] Specimen Blood Performing Organization Address City/[facility]/Zipcode Phone Number [address] [address] CENTER Hepatitis B core antibody, IgM (12/29/2019 6:21 AM CDT) Hep B C IgM Nonreactive Nonreactive [facility] Specimen Blood Narrative Performed At Testing [employer]aking Shipping ID - PARKER Laguerre [facility] Performing Organization Address City/State/Zipcode Phone Number [address] [address] CENTER Hepatitis B surface antibody (12/29/2019 6:21 AM CDT) Hep B S Ab <8.0 <8.0 mIU/mL [facility] Specimen Blood Narrative Performed At Testing Shaking Shipping ID - PARKER Laguerre [facility] Performing Organization Address City/[facility]/Zipcode Phone Number [facility] [phone] [place] Hepatitis B surface antigen (12/29/2019 6:21 AM CDT) HBsAg Screen Nonreactive Nonreactive [facility] Specimen Blood Narrative Performed At Specimen is considered negative for HBsAg. [facility] Performing Organization Address City/[facility]/Zipcode Phone Number [address] [address] [place] Anti-Nuclear Antibody (NAVI) (12/29/2019 6:21 AM CDT) NAVI Positive (A) Negative [facility] Specimen Blood Narrative Performed At Test performed by IFA method. [facility] Performing Organization Address [facility] [place] [facility] Centercode Phone Number [address] [address] [place] Manual Differential (12/29/2019 6:20 AM CDT)Only the most recent of2 results within the time period is included. % Neutros 62 % [facility] % Lymphs 9 % [facility] % Monos 8 % [facility] % Eos 4 % [facility] % Metamyelo 6 (H) 0 - 0 % [facility] % Myelo 4 (H) 0 - 0 % [facility] % Bands 5 0 - 10 % [facility] % Atypical Lymphs 2 (H) 0 - 0 % [facility] # Neutros 6.82 (H) 1.56 - 6.13 K/ul [facility] # Lymphs 0.99 (L) 1.18 - 3.74 K/ul [facility] # Monos 0.88 (H) 0.24 - 0.36 K/uL [facility] # Eos 0.44 (H) 0.04 - 0.36 K/uL [facility] # Metamyelo 0.66 (H) 0.00 - 0.00 K/uL [facility] # Myelo 0.44 (H) 0.00 - 0.00 K/uL [facility] # Bands 0.55 0.00 - 0.80 K/uL [facility] # Atypical Lymphs 0.22 (H) 0.00 - 0.00 K/uL [facility] Total Counted 100 [facility] nRBC (manual) 2 (H) 0 - 0 /100 WBC [facility] WBC Morphology Normal [facility] Platelet Morphology Normal [facility] Polychromasia 1+ few [facility] Hypochromia 1+ few [facility] Anisocytosis 1+ few [facility] Artifact Present [facility] Platelet Conc Adequate [facility] Specimen Blood Narrative Performed At Testing [employer]aking Shipping ID - Mary Overholt [facility] User comments: Slide comments: Performing Organization Address City/State/Zipcode Phone Number [facility] [address] [place] [address] CENTER US abdominal with doppler (12/28/2019 10:40 PM CDT) Specimen Narrative Performed At FINAL REPORT [facility] Alert INDICATION: elevated AST/ALT, concern fo r underlying liver disease COMPARISON: None TECHNIQUE: Real-time martin-scale transabd ominal and color and spectral Doppler ultrasound. FINDINGS: Liver: Size: 15.0cm. Echogenicity: Normal. Masses/lesions: None. Surface Nodularity: None. Intrahepatic bile ducts: Normal . Common bile duct: 0.5cm. MPV: 1.0cm. Gallbladder: Stones: Sludge is seen layering in the gallbladder lumen with multiple echogenic foci possibly represe nting cholelithiasis.. Wall thickness: 0.4 cm. Pericholecystic fluid: None. Sonographic Paredes's sign: No s onographic Paredes's sign. Pancreas: Head and uncinate process: Unre markable. Body and tail: Not well-seen. Spleen: Size: 11.3cm. Echogenicity: Unremarkable. Right kidney: Size: 11.2 x 4.7 x 5.1 cm. Parenchyma: Normal echogenicity . No cysts. No stones. Hydronephrosis: None. Left kidney: Size: 11.8 x 4.9 x 5.3 cm. Parenchyma: Normal echogenicity . No cysts. No stones. Hydronephrosis: None. Ascites: None. Trace right pleural effus ion. Regional Vasculature: The visible abdomi nal aorta, IVC and hepatic veins are patent. The aorta measures 1.9 cm proximally, 1.6 cm in the midportion, distally not well-seen secon geoffrey to poor acoustic windowing. Color and Spectral imaging: MPV: Diameter: 1.0 cm Flow: Hepatopedal. Velocity: 41.2 cm/sec Filling defects: None Left and right portal veins: Patent. Flow: Antegrade Filling defects: None. Hepatic arteries: Patent RI proper hepatic: 0.7 RI right hepatic: 0.7 RI left hepatic: 0.6 IVC, Hepatic venous confluence, right HV , middle HV and left HV are patent. Additional findings: None. IMPRESSION: Unremarkable abdominal ultrasound and he patic Doppler examination. Biliary sludge with possible cholelithia sis however no findings to suggest acute cholecystitis. Trace right pleural effusion. Signed: Mark Chamberlain MD Report Verified Date/Time:12/28/2019 23:22:17 Procedure Note Interface, External Ris In - 12/28/2019 11:24 PM CDT FINAL REPORT INDICATION: elevated AST/ALT, concern fo r underlying liver disease COMPARISON: None TECHNIQUE: Real-time martin-scale transabd ominal and color and spectral Doppler ultrasound. FINDINGS: Liver: Size: 15.0cm. Echogenicity: Normal. Masses/lesions: None. Surface Nodularity: None. Intrahepatic bile ducts: Normal. Common bile duct: 0.5cm. MPV: 1.0cm. Gallbladder: Stones: Sludge is seen layering in the gallbladder lumen with multiple echogenic foci possibly represe nting cholelithiasis.. Wall thickness: 0.4 cm. Pericholecystic fluid: None. Sonographic Paredes's sign: No sonog raphic Paredes's sign. Pancreas: Head and uncinate process: Unremark able. Body and tail: Not well-seen. Spleen: Size: 11.3cm. Echogenicity: Unremarkable. Right kidney: Size: 11.2 x 4.7 x 5.1 cm. Parenchyma: Normal echogenicity. No cysts. No stones. Hydronephrosis: None. Left kidney: Size: 11.8 x 4.9 x 5.3 cm. Parenchyma: Normal echogenicity. No cysts. No stones. Hydronephrosis: None. Ascites: None. Trace right pleural effus ion. Regional Vasculature: The visible abdomi nal aorta, IVC and hepatic veins are patent. The aorta measures 1.9 cm proximally, 1.6 cm in the midportion, distally not well-seen secon geoffrey to poor acoustic windowing. Color and Spectral imaging: MPV: Diameter: 1.0 cm Flow: Hepatopedal. Velocity: 41.2 cm/sec Filling defects: None Left and right portal veins: Patent. Flow: Antegrade Filling defects: None. Hepatic arteries: Patent RI proper hepatic: 0.7 RI right hepatic: 0.7 RI left hepatic: 0.6 IVC, Hepatic venous confluence, right HV , middle HV and left HV are patent. Additional findings: None. IMPRESSION: Unremarkable abdominal ultrasound and he patic Doppler examination. Biliary sludge with possible cholelithia sis however no findings to suggest acute cholecystitis. Trace right pleural effusion. Signed: Mark Chamberlain MD Report Verified Date/Time: 12/28/2019 2 3:22:17 Performing Organization Address City/State/Zipcode Phone Number [facility] 2D Echo W/Doppler(CW/PW/Color) (12/28/2019 8:47 AM CDT) Ejection Fraction [facility] Specimen Narrative Performed At Transthoracic Echocardiography Report (T TE) [facility] Demographics Patient NameKANDICE COBIAN Date of Study 12/28/2019 Female Visit [id number] Room Number 930 Number Date of 1955Referring Physician Betty Dixon Age 64 year(s)Facepiece Line Supervisor Libby Green [facility] InterpretingJosekerline Escobar MD Physician Procedure Type of Study TTE procedure:2DECHO W DOPPLER(CW/PW/COLOR) (Routine) Indications:Suspected hypertensive heart failure. Clinical History HGB 10.2 HCT 35.2 % CAD, CABG (2010?), CHF, A-FIB, HTN, DM 2, ASTHMA, HX CVA, SEVERE PHTN Contrast Medium: Definity. Height: 60 inches Weight: 90.72 kg (200 lbs) BSA: 1.87 m^2 BMI: 39.06 kg/m^2 HR: 86 bpm BP: 128/65 mmHg Summary The left ventricle is chamber size (by vol index) is normal (female - LVED vol - 29-61ml/m2). All of the LV segments are mildly hypokinetic . Septal motion is abnormal, likely related to prior cardiac surgery . LVEF by Mason's method of disk assessment is mildly reduced (40-44%) . LV diastolic function is indeterminate. Global RV systolic function is depressed . RV chamber size is mildly enlarged . Sxab-sp-hktfdasj mitral regurgitation. Moderate tricuspid regurgitation. Estimated peak systolic PA pressure is 70-75 mmHg . Signature Findings Left Ventricle The left ventricle is chamber size (by vol index) is normal (female - LVED vol - 29-61ml/m2). Normal LV wall thickness. All of the LV segments a re mi ldly hypokinetic . Septal motion is abno rmal, li meaghan related to prior cardiac surgery . LVEF by Si mpson's method of disk assessment is mil dly re duced (40-44%) . LV diastolic function i s in determinate. Left AtriumLA size is moderately enlarged (42-48 ml/m2) . Right VentricleGlobal RV systolic function is depressed . RV chamber size is mildly enlarged . Right Atrium RA size is mildly dilated. Aortic Valve Normal AoV structure. Mitral Valve Mild MV leaflet thickening. Mi yx-vb-feoibrnn mitral regurgitation. Tricuspid ValveModerate tricuspid regurgitation. Es timated peak systolic PA pressure is 70- 75 mmHg . Pulmonic Valve A trace of pulmonary regurgitation. AortaAortic root size (SInus of Valsalva diameter) i s no rmal . PericardiumNo pericardial effusion is visualized. IVC/SVC/PA/PV/PleuralThe estimated RA pressure by IVC dynamics 11-15mmHg . Chambers/Structures Left Atrium LA Dimension: 5.16 cmLA Area: 23.17 cm^2 LA Volume: 82.31 ml LA Vol. Index: 44 ml/m^2 Left Ventricle LVIDd: 4.57 cm LVEDV:74.29 ml LVIDs: 3.76 cm LV Septum Diastolic: 0.87 cm LV PW Diastolic: 0.87 cm LV FS: 17.7 % LVEDV Mason's:94.41 ml LVESV Mason's:53.03 ml LVEDVI: 50 ml/m^2 LVEF Mason's: 43.8 % LVESVI: 28 ml/m^2 LVOT Diameter: 1.79 cm Aorta Ao Root S of Rupinder.: 2.89 cm Doppler/Quantitative Measurements Mitral Valve MV Peak E-Wave: 1.28 m/s MV Peak A-Wave: 0.3 m/s E/A Ratio: 4.26 Peak Gradient: 6.5 6 mmHg Deceleration Time: 167.5 msec MV Skinny. Peak: Aortic Valve Peak Velocity: 1.06 m/sMean Velocity: 0.83 m/s Peak Gradient: 4.5 mmHgMean Gradient: 2.87 mmHg AV Area (continuity): 2.09 cm^2 AV VTI: 19.26 cm AV DVI: 0.83 LVOT Peak Velocity: 0.76 m/s Peak Gradient: 2.3 mmHg Mean Velocity: 0.54 m/s Mean Gradient: 1.34 mmHg LVOT Diameter: 1.79 cmLVOT VTI: 15.99 cm LVOT Area: 2.52 cm^2LVOT SV:40.22 ml LVOT CO: 3.46 l/min LVOT CI: 1.85 l/min/m^2 Tricuspid Valve TR Velocity: 3.74 m/s TR Gradient: 55.85 mmHg Procedure Note Interface, External Ris In - 12/28/2019 11:49 AM CDT Transthoracic Echocardiography Report (TTE) Demographics Patient Name KANDICE COBIAN Date of S isaiah 12/28/2019 Gender Female Visit Number [id number] Race Room Numb er 930 Number Date of 1955 Referring Physician Betty Dixon Age 64 year(s) Sonograph er Libby Green RDCS Interpret ing Marco Antonio Escobar MD Physician Procedure Type of Study TTE procedure:2DECHO W DOPPLE R(CW/PW/COLOR) (Routine) Indications:Suspected hypertensive heart failure. Clinical History HGB 10.2 HCT 35.2 % CAD, CABG (2010?), CHF, A-FIB, HTN, DM 2 , ASTHMA, HX CVA, SEVERE PHTN Contrast Medium: Definity. Height: 60 inches Weight: 90.72 kg (200 lbs) BSA: 1.87 m^2 BMI: 39.06 kg/m^2 HR: 86 bpm BP: 128/65 mmHg Summary The left ventricle is chamber size (by vol index) is normal (female - LVED vol - 29-61ml/m2). All of the LV segmen ts are mildly hypokinetic . Septal motion is abnormal, likely related to p rior cardiac surgery . LVEF by Mason's method of disk assessment is mildly reduced (40-44%) . LV diastolic function is indeterminate. Global RV systolic function is depresse d . RV chamber size is mildly enlarged . Ybzg-ji-ovffctwx mitral regurgitation. Moderate tricuspid regurgitation. Estim ated peak systolic PA pressure is 70-75 mmHg . Signature Findings Left Ventricle The left ventric le is chamber size (by vol index) is normal (femal e - LVED vol - 29-61ml/m2). Normal LV wall thicknes s. All of the LV segments are mildly hypokinet ic . Septal motion is abnormal, likely related t o prior cardiac surgery . LVEF by Mason's method of disk assessment is mildly reduced (40-44%) . LV diastolic function is indeterminate. Left Atrium LA size is moder ately enlarged (42-48 ml/m2) . Right Ventricle Global RV systol ic function is depressed . RV chamber size is mildly enlarged . Right Atrium RA size is mildl y dilated. Aortic Valve Normal AoV struc ture. Mitral Valve Mild MV leaflet thickening. Sbnw-cs-epuwveom mitral regurgitation. Tricuspid Valve Moderate tricusp id regurgitation. Estimated peak s ystolic PA pressure is 70-75 mmHg . Pulmonic Valve A trace of pulmo nary regurgitation. Aorta Aortic root size (SInus of Valsalva diameter) is normal . Pericardium No pericardial e ffusion is visualized. IVC/SVC/PA/PV/Pleural The estimated RA pressure by IVC dynamics 11-15mmHg . Chambers/Structures Left Atrium LA Dimension: 5.16 cm LA Area: 23.17 cm^2 LA Volume: 82.31 ml LA Vol. Index: 44 ml/m^2 Left Ventricle LVIDd: 4.57 cm LVEDV:74.29 ml LVIDs: 3.76 cm LV Septum Diastolic: 0.87 cm LV PW Diastolic: 0.87 cm LV FS: 17.7 % LVEDV Mason's:94.41 ml LVESV Mason's:53.03 ml LVEDVI: 50 ml/m^2 LVEF Mason's: 43.8 % LVESVI: 28 ml/m^2 LVOT Diameter: 1.79 cm Aorta Ao Root S of Rupinder.: 2.89 cm Doppler/Quantitative Measurements Mitral Valve MV Peak E-Wave: 1.28 m/s MV P eak A-Wave: 0.3 m/s E/A Ratio: 4.26 Peak Gradient: 6.56 mmHg Dece leration Time: 167.5 msec MV Skinny. Peak: Aortic Valve Peak Velocity: 1.06 m/s Mean Velocity: 0.83 m/s Peak Gradient: 4.5 mmHg Mean Gradient: 2.87 mmHg AV Area (continuity): 2.09 cm^2 AV VTI: 19.26 cm AV DVI: 0.83 LVOT Peak Velocity: 0.76 m/s Pea k Gradient: 2.3 mmHg Mean Velocity: 0.54 m/s Luda n Gradient: 1.34 mmHg LVOT Diameter: 1.79 cm LVO T VTI: 15.99 cm LVOT Area: 2.52 cm^2 LVO T SV:40.22 ml LVOT CO: 3.46 l/min LVO T CI: 1.85 l/min/m^2 Tricuspid Valve TR Velocity: 3.74 m/s TR Gradient: 55.85 mmHg Performing Organization Address City/State/Zipcode Phone Number [facility] Venous doppler leg, left (12/28/2019 8:10 AM CDT) Ejection Fraction [facility] Specimen Impressions Performed At [facility] Left Impression 1. There is no deep venous obstruction in the common femoral, profunda femoral, femoral, popliteal, posterior tibial or peroneal veins. 2. There is no superficial venous obstruction in the great saphenous vein. Conclusions Summary Venous duplex imaging and compression of the left lower extremity were performed. The veins were adequately visualized. The left venous system was patent and compressible with no evidence of thrombus. The venous Doppler waveforms were phasic with resp iration . Signature Velocities are measured in cm/s ; Diameters are measured in cm Narrative Performed At [facility] - Lower Extremities DVT Study [facility] Demographics Patient NameKANDICE COBIAN Date of Study 12/28/2019 64 Visit [id number] Female of 1955 Referring Betty Room Number 930 Physician Zack Facepiece Line Supervisor Cuco Celestin Xiang Physician Procedure Type of Study: Veins: Lower Extremities DVT Study, VENOUS DOPPLER LEG, LEFT. Indications for Study:Left Leg Pain. Patient Status:Routine. Study Location:Vascular Lab. Technical Quality:Adequate visualization . Risk Factors History of Disease + +----+ + !Diagnosis!Date!Comments ! + +----+ + !History/Risk !!Morbid obesity, CHF, A-Fib, HTN, DM2, CAD, S/P ! !Factors: !!CABG, Dyspnea ! + +----+ + Procedure Note Interface, External Ris In - 12/28/2019 9:19 AM CDT [facility] - Lower Extremities DVT Study Demographics Patient Name KANDICE COBIAN Gerry e of Study 12/28/2019 Age 64 Visit Number [id number] Gen artie Female Accession Number [id number] Gerry e of 1955 Referring Betty Ronaldo [place] m Number 930 Physician Zack Facepiece Line Supervisor Cuco Best Int erpretin Meri Celestin, S Mervin wei MD Procedure Type of Study: Veins: Lower Extremities DVT Study, NICOLE OUS DOPPLER LEG, LEFT. Indications for Study:Left Leg Pain. Patient Status:Routine. Study Location:Vascular Lab. Technical Quality:Adequate visualization . Risk Factors History of Disease + +----+ + !Diagnosis !Date!Comments ! + +----+ + !History/Risk ! !Morbid obesity , CHF, A-Fib, HTN, DM2, CAD, S/P ! !Factors: ! !CABG, Dyspnea ! + +----+ + Impressions Left Impression 1. There is no deep venous obstruction i n the common femoral, profunda femoral, femoral, popliteal, posterior t ibial or peroneal veins. 2. There is no superficial venous obstru ction in the great saphenous vein. Conclusions Summary Venous duplex imaging and compression o f the left lower extremity were performed. The veins were adequately vi sualized. The left venous system was patent and compressible with no cecy dence of thrombus. The venous Doppler waveforms were phasic with resp iration . Signature Velocities are measured in cm/s ; Diamet ers are measured in cm Performing Organization Address City/[facility] [place]/Zipcode Phone Number [facility] MKCKESSON CPACS Hemoglobin A1c (12/28/2019 6:25 AM CDT) Hemoglobin A1C 9.9 (H) 4.3 - 6.1 % [facility] Specimen Blood Performing Organization Address City/State/Zipcode Phone Number [facility] [address] [place] [address] CENTER Troponin I (12/28/2019 6:24 AM CDT)Only the most recent of2 resultswithin the time period is included. Troponin I 0.02 0.00 - 0.03 ng/mL [facility] Specimen Blood Narrative Performed At Troponin I (TnI) levels must be interpreted [facility] in the context of the presenting symptoms and the clinical findings. Elevated TnI levels indicate myocardial damage, but are not specific for ischemic heart disease. Elevated TnI levels are seen in patients with other cardiac conditions (including myocarditis and congestive heart failure), and slight TnI elevations occur in patients with other conditions, including sepsis, renal failure, acidosis, acute neurological disease, and persistent tachyarrhythmia. Testing Shaking Shipping ID Quincy Sutherland Performing Organization Address City/[facility] [place] Phone Number [address] [address] CENTER Ammonia (12/28/2019 6:24 AM CDT) Ammonia 40 18 - 72 mol/L [facility] Specimen Blood Narrative Performed At Testing Shaking Shipping [place] [facility] Performing Organization Address [facility] [place]/[facility] [place] [facility] Phone Number [address] [address] [place] Urea Nitrogen, random urine (12/28/2019 2:19 AM CDT) Urea Nitrogen, Ur 882 mg/dL [facility] Specimen Urine Narrative Performed At Reference Range: No Normals [facility] Testing Shaking Shipping ID - LETA Performing Organization Address [facility] [place]/[facility] Phone Number [address] [address] [place] Sodium, random urine (12/28/2019 2:19 AM CDT) Sodium Urine 42 meq/L [facility] Specimen Urine Narrative Performed At Reference Range: No Normals [facility] Testing Shaking Shipping ID - DB Performing Organization Address [facility] [place] Phone Number [address] [address] CENTER Creatinine, random urine (12/28/2019 2:19 AM CDT) Creatinine, Ur 80.7 mg/dL [facility] Specimen Urine Narrative Performed At Reference Range: No Normals [facility] Testing Shaking Shipping ID - DB Performing Organization Address City/State/Zipcode Phone Number [facility] [address] [place] [address] CENTER SARS-CoV2/RT-PCR (Asymptomatic ONLY) (12/27/2019 9:31 PM CDT) SARS-COV2/RT-PCR Negative Not Detected, Negative, [facility] See external report for MEDICAL CENTER linked test SARS-COV-[address] [facility] JENNIFER [facility] Specimen Other Narrative Performed At Negative result for this test determines that [facility] SARS-CoV-2 RNA was not present in the specimen above the Limit of Detection (LOD).However, Negative results do not preclude SARS-CoV-2 infection and should not be used as the sole basis for treatment or patient management decisions. Negative results must be combined with clinical observations, patient history, and epidemiological information. A false negative result may occur if a specimen is improperly collected, transported or handled.A false negative result should be considered if patient's recent exposures or clinical presentation indicate that COVID-19 (SARS-CoV-2) is likely and diagnostic tests for other causes of illness are negative.Re-testing should be considered in cases of suspected false negatives. The limit of detection for this assay is 800 copies/mL. This SARS CoV-2 test is a real-time RT-PCR test intended for the qualitative detection of nucleic acid from SARS-CoV-2 in a nasopharyngeal swab specimen collected from individuals suspected of COVID-19 by their healthcare provider. This test has not been Food and Drug Administration (FDA) cleared or approved.This is a modified version of an approved Emergency Use Authorization (EUA) and is in the process of review by the FDA. Once authorized by the FDA, the issued EUA will be effective until the declaration that circumstances exist justifying the authorization of the emergency use of in vitro diagnostic tests for detection and/or diagnosis of COVID-19 is terminated under Section 564(b)(2) of the Act or the EUA is revoked under Section 564(g) of the Act. Fact Sheet for Healthcare Providers: https://www.[employer]/sites/default/files/pro duct/documents/Fact_Sheet_HC_Providers_Lyra_SA RS-CoV-2.pdf Fact Sheet for Healthcare Patients: https://www.[employer]/sites/default/files/pro duct/documents/Fact_Sheet_Patients_Lyra_SARS-C oV-2.pdf Performing Laboratory: [address] [place] [address] Performing Organization Address City/[facility] [place]/[facility] Phone Number [address] [address] CENTER B-type Natriuretic Factor (BNP) (12/27/2019 6:28 PM CDT) BNP 291 (H) 0 - 100 pg/mL [facility] Specimen Blood Narrative Performed At Testing Shaking Shipping ID - ROSIANG [facility] Performing Organization Address [facility] [place]/[facility] Phone Number [address] [address] CENTER ECG 12 lead (12/22/2019 2:04 PM CDT) Specimen Narrative Performed At Ventricular Rate 74 BPM GE MUSE Atrial Rate 250 BPM QRS Duration 76 ms Q-T Interval 414 ms QTC Calculation(Bazett) 459 ms R [place] 107 degrees T [place] -5 degrees Atrial fibrillation Rightward axis Poor R wave progression Nonspecific T wave abnormality Abnormal ECG When compared with ECG of 01-APR-1995 16 :16, Atrial fibrillation has replaced Sinus r hythm QRS voltage has decreased Poor R wave progression now seen Inverted T waves have replaced nonspecif ic T wave abnormality inIII Nonspecific T wave abnormality now evide nt in Anterolateral leads Confirmed by MD JENNIFER, DOMENICA ([id number]) on 12/28/2019 2:05:35 PM Procedure Note Interface, External Ris In - 12/28/2019 2:05 PM CDT Ventricular Rate 74 BPM Atrial Rate 250 BPM QRS Duration 76 ms Q-T Interval 414 ms QTC Calculation(Bazett) 459 ms R [place] 107 degrees T [place] -5 degrees Atrial fibrillation Rightward axis Poor R wave progression Nonspecific T wave abnormality Abnormal ECG When compared with ECG of 01-APR-1995 16 :16, Atrial fibrillation has replaced Sinus r hythm QRS voltage has decreased Poor R wave progression now seen Inverted T waves have replaced nonspecif ic T wave abnormality in III Nonspecific T wave abnormality now evide nt in Anterolateral leads Confirmed by MD JENNIFER, DOMENICA ([id number]) on 12/28/2019 2:05:35 PM Performing Organization Address City/State/Zipcode Phone Number GE MUSE after 12/29/2018 Insurance Payer Benefit Plan / Group Subscriber ID Type Phone [employer] xxxxxxxx Maps Contracted Guarantor Name Account Type Relation to Date of Phone Bill ing Patient Address Kandice Cobian Personal/Family Self 1955 [address] (Home) [address] [address] Advance Directives For more information, please contact:[facility] [place], [place] [phone] Code Status Date Activated Date Inactivated Comments Full Code 12/27/2019 5:49 PM This code status was determined by: Patient
--- OUTSIDE RECORDS SUMMARY | 2019-12-30 18:22 | XMS REPORT | Continuity of Care Document ---
:1955 Author Organization [facility] t Address [address] [place] [address] Care Team Providers Name Role Phone BETTY MILLS Attending Clinician Unavailable Vu Mills MD Attending Clinician [phone] Carlos THOMPSON Attending Clinician Alexander THOMPSON Attending Clinician VU MILLS Admitting Clinician Unavailable Payers Payer Name Policy Type Policy Number Effective Date Expiration Source Date CIGNA xxxxxxxx [facility] ALLxxxxxxxxMaps Center Contracted Problems Condition Condition Condition Status Onset Resolution Last Treating Co mments Source Name Details Category Date Date Treatment Clinician Date Atrial Atrial Disease Active 2019-[address] [facility] fibrillati fibrillati 0-06 Fiona kes - on on 00:00: Medical 00 [place] DM DM Disease Active 2019-[address] [facility] (diabetes (diabetes 0-06 [facility] - mellitus), mellitus), 00:00: Me dical type 2 type 2 00 Center Transamina Transamina Disease Active 2019-[address] semia semia 0-06 [facility] - 00:00: Medical 00 [facility] GI (acute GI (acute Disease Active 2019-[address] kidney kidney 006 [facility] - injury) injury) 00:00: Medical 00 [facility] CHF CHF Disease Active 2019-[address] [facility] (congestiv (congestiv 0-04 Fiona kes - e heart e heart 00:00: Medical failure) failure) 00 Center Allergies, Adverse Reactions, Alerts Allergy Allergy Status Severity Reaction(s) Onset Inactive Treating Comm ents Source Name Type Date Date Clinician IVP DYE DA Active MO 2020-0 [facility] 8[facility]16 [place] 00:[facility]: d [facility] IVP DYE DA Active MO 2020-0 [facility] 8[facility]14 [place] 00:00: d [facility] No Known DA Active U 2019-0 [facility] Allergie 5-25 Clear s 00:00: House [facility] No Known DA Active U 2002-0 [facility] Drug 3-21 [place] Intolera 00:00: d nces 00 [facility] IVP DYE DA Active U 2003-0 [facility] 3-21 [place] 00:00: d [facility] No Known DA Active U 2003-0 [facility] Drug 3-21 [place] Allergie 00:00: d s [facility] No Known DA Active U 2003-0 [facility] Food 3-21 [place] Allergie 00:00: d s [facility] No Known DA Active U 2003-0 [facility] Other 3-21 [place] Allergie 00:00: d s [facility] Social History Social Habit Start Date Stop Date Quantity Comments Source Sex Assigned At [facility] Medications Ordered Filled Start Stop Current Ordering Indication Dosage Frequency Signature Comments Components Source Medication Medication Date Date Medication? Clinician (SIG) Name Name potassium 2019-03 Yes QD Take by [facility] chloride 0-04 mouth [facility] - (KLOR-CON) 20:41: daily. Medic al 10 MEQ CR 21 Center tablet apixaban 2019-03 Yes 5mg Q.5D Take [address] [facility] (ELIQUIS) 5 0-04 by mouth 2 Fiona kes - mg Tab 20:41: (two) Medical tablet 21 times Center daily. venlafaxine 2019-03 Yes 150mg QD Take [address] (EFFEXOR-XR 0-04 mg by [facility] - ) 150 MG 24 20:41: mouth Medic al hr capsule 20 daily. Center metoprolol 2019-03 Yes 25mg Q.5D Take [address] tartrate 0-04 by mouth 2 [facility] - (LOPRESSOR) 20:41: (two) Medic al 25 MG 20 times Center tablet daily. furosemide 2019-03 Yes 40mg QD Take [address] (LASIX) 40 0-04 by mouth [facility] - MG tablet 20:41: daily. Medica l 20 Center pramipexole 2019-03 Yes .25mg QD Take 0.[address] [facility] [facility] (MIRAPEX) 0-04 mg by [facility] - 0.25 MG 20:41: mouth Medical tablet 20 daily. [facility] cetirizine 2019-03 Yes 10mg QD Take [address] (ZYRTEC) 10 0-04 by mouth [facility] - MG tablet 20:41: daily. Medica l 20 Center glipiZIDE 2019-03 Yes 2.5mg QD Take 2.[address] [facility] (GLUCOTROL 0-04 mg by [facility] - XL) 2.5 MG 20:41: mouth Medica l 24 hr 20 daily. Center tablet spironolact 2019-03 Yes 25mg QD Take [address] [facility] [facility] one 0-04 by mouth [facility] - (ALDACTONE) 20:41: daily. Medi vincent 25 MG 20 Center tablet pantoprazol 2019-03 Yes 40mg QD Take [address] [facility] e 0-04 by mouth [facility] - (PROTONIX) 20:41: daily. Medic al 40 MG 19 Center tablet traZODone 2019-03 Yes insomnia 50mg QD Take [address] (DESYREL) 0-04 associated by mouth [facility] - 50 MG 20:41: with nightly. Medical tablet 19 depression Center Vital Signs Vital Name Observation Time Observation Value Comments Source Systolic blood 2019-12-30 16:00:00 130 mm[Hg] [facility] Diastolic blood 2019-12-30 16:00:00 60 mm[Hg] [facility] Heart rate 2019-12-30 16:00:00 80 /min [facility] Body temperature 2019-12-30 16:00:00 36.22 Martha [facility] Respiratory rate 2019-12-30 16:00:00 18 /min [facility] Oxygen saturation in 2019-12-30 16:00:00 100 /min [facility] Arterial blood by Medical Ce nter Pulse oximetry Body weight Measured 2019-12-30 05:42:00 90.855 kg [facility] BMI 2019-12-30 05:42:00 39.12 kg/m2 [facility] Body height 2019-12-27 23:31:00 152.4 cm [facility] Procedures Procedure Date / Time Performed Performing Clinician Go senior POCT-GLUCOSE METER 2019-12-30 16:26:00 [facility] Cornelio [facility] XR CHEST 1 VIEW 2019-12-30 16:21:00 [facility] PORTABLE/BEDSIDE [facility] RHYTHM STRIP - SCAN 2019-12-30 15:26:49 Provider, Ariane [facility] POCT-GLUCOSE METER 2019-12-30 11:47:00 Alexander, Cornelio [facility] TREADMILL 2019-12-30 09:09:21 Unknown, Hl7 Doctor [facility] - TOLERANCE(NON-NUCLEAR Medical Ce nter TREADMILL) ECG 12-LEAD 2019-12-30 09:08:12 Unknown, Hl7 Doctor [facility] NM MYOCARDIAL PERFUSION 2019-12-30 09:01:00 Castro Nazario [facility] - PET/CT (REST & STRESS) [facility] Carlotta enter BASIC METABOLIC PANEL (7) 2019-12-30 06:09:00 Drew Gonzalez [facility] CALCIUM, IONIZED 2019-12-30 06:09:00 Drew Gonzalez [facility] PHOSPHORUS 2019-12-30 06:09:00 Drew Gonzalez [facility] MAGNESIUM 2019-12-30 06:09:00 Drew Gonzalez [facility] HEPATIC FUNCTION PANEL 2019-12-30 06:09:00 Sabrina Zapien [facility] PROTHROMBIN TIME/INR 2019-12-30 06:09:00 Sabrina Zapien [facility] PERIPHERAL BLOOD SMEAR - 2019-12-30 06:09:00 [facility] LACTATE DEHYDROGENASE 2019-12-30 06:09:00 Alexander [facility] (LDH) [facility] LIPID PANEL 2019-12-30 06:09:00 [facility] HEPARIN ASSAY - LOW 2019-12-30 06:09:00 Castro Nazario [facility] - MOLECULAR WEIGHT [facility] CBC W/PLT COUNT & AUTO 2019-12-30 06:09:[address] [facility] (MANUAL DIFFERENTIAL) 2019-12-30 06:09:00 Palak Munozeraj [facility] POCT-GLUCOSE METER 2019-12-29 20:34:00 Carlos [facility] POCT-GLUCOSE METER 2019-12-29 16:33:00 [facility]SE METER 2019-12-29 12:07:00 Carlos [facility] POCT-GLUCOSE METER 2019-12-29 07:49:00 Drew Gonzalez [facility] BASIC METABOLIC PANEL (7) 2019-12-29 06:21:[facility] 2019-12-29 06:21:00 Zack [facility] PHOSPHORUS 2019-12-29 06:21:00 [facility] 2019-12-29 06:21:00 Drew Gonzalez [facility] HEPATITIS A ANTIBODY, IGM 2019-12-29 06:21:00 Sabrina Zapien [facility] HEPATITIS B CORE 2019-12-29 06:21:00 Curry Sabrina [facility] - ANTIBODY, IGM [facility] HEPATITIS B SURFACE 2019-12-29 06:21:00 Shobha Zapienssa [facility] ANTIBODY [facility] HEPATITIS B SURFACE 2019-12-29 06:21:00 [facility] ANTIGEN [facility] ANTI-NUCLEAR ANTIBODY 2019-12-29 06:21:00 Jefferson Sabrina [facility] (NAVI) [facility] PROTHROMBIN TIME/INR 2019-12-29 06:21:00 [facility] NAVI TITER AND PATTERN 2019-12-29 06:21:00 Jefferson [facility] CALCIUM, IONIZED 2019-12-29 06:20:00 [facility] W/PLT COUNT & AUTO 2019-12-29 06:20:00 [facility] (CELLAVISION MANUAL DIFF) 2019-12-29 06:20:00 [facility] US ABDOMINAL WITH DOPPLER 2019-12-28 22:40:00 Sabrina Zapien [facility] POCT-GLUCOSE METER 2019-12-28 20:42:00 [facility] PO[facility]SE METER 2019-12-28 16:39:00 [facility] POCT-GLUCOSE METER 2019-12-28 11:37:00 [facility] 2D ECHO W/ DOPPLER 2019-12-28 08:47:48 Dee Dee Pelayo [facility] (CW/PW/COLOR) [facility] POCT-GLUCOSE METER 2019-12-28 08:31:00 Drew Gonzalez [facility] VENOUS DOPPLER LEG, LEFT 2019-12-28 08:10:00 Dee Dee Pelayo [facility] HEMOGLOBIN A1C 2019-12-28 06:25:00 [facility] TROPONIN I 2019-12-28 06:24:00 [facility] BASIC METABOLIC PANEL (7) 2019-12-28 06:24:00 [facility] HEPATIC FUNCTION PANEL 2019-12-28 06:24:00 [facility] MAGNESIUM 2019-12-28 06:24:00 [facility] LIPID PANEL 2019-12-28 06:24:00 [facility] PHOSPHORUS 2019-12-28 06:24:00 [facility] AMMONIA 2019-12-28 06:24:00 Dee Dee Pelayo [facility] CBC W/PLT COUNT & AUTO 2019-12-28 06:24:00 [facility] (CELLAVISION MANUAL DIFF) 2019-12-28 06:24:00 [facility] CREATININE, RANDOM URINE 2019-12-28 02:19:00 Dee Dee Pelayo [facility] UREA NITROGEN, RANDOM 2019-12-28 02:19:00 Dee Dee Pelayo C [facility] SODIUM, RANDOM URINE 2019-12-28 02:19:00 Dee Dee Pelayo I [facility] SARS-COV2/RT-PCR ([facility] & 2019-12-27 21:31:00 Dee Dee Pelayo [facility] - REF LABS) [facility] POCT-GLUCOSE METER 2019-12-27 21:16:00 [facility] TROPONIN I 2019-12-27 18:28:00 [facility] BASIC METABOLIC PANEL (7) 2019-12-27 18:28:00 [facility] HEPATIC FUNCTION PANEL 2019-12-27 18:28:00 [facility] B-TYPE NATRIURETIC FACTOR 2019-12-27 18:28:00 [facility] (BNP) [facility] CBC W/PLT COUNT & AUTO 2019-12-27 18:28:00 [facility] DIFFERENTIAL [facility] POCT-GLUCOSE METER 2019-12-27 18:20:00 [facility] XR CHEST 1 VIEW 2019-12-27 17:50:00 [facility] es - PORTABLE/BEDSIDE [facility] ECG 12-LEAD 2019-12-22 14:04:28 Dee Dee Pelayo [facility] Plan of Care Planned Activity Planned Date Details Comments Source Future Scheduled 2022-12-[address] [facility] - Test 00:00:00 (procedure) [code = [facility] 81623772] Future Scheduled 2020-12-08 PNEUMOCOCCAL [address] - Test 00:00:00 LOW/MEDIUM RISK (2 of [facility] 2 - PCV13) [code = PNEUMOCOCCAL 65+ LOW/MEDIUM RISK (2 of 2 - PCV13)] Future Scheduled 2020-03-[address] Fiona kes - Test 00:00:00 [facility] (procedure) [code = 48534364] Future Scheduled 2019-11-24 INFLUENZA VACCINE (#1) [facility] - Test 00:00:00 [code = INFLUENZA Medical Ce nter VACCINE (#1)] Future Scheduled 2019-08-24 Medicare IPPE (WELCOME [facility] - Test 00:00:00 TO MEDICARE) [code = [facility] Medicare IPPE (WELCOME TO MEDICARE)] Future Scheduled 1975-08-[address] [facility] - Test 00:00:00 malignant neoplasm of [facility] cervix (procedure) [code = 195398104] Future Scheduled 1964 DIABETIC EYE EXAM [facility] - Test 00:00:00 [code = DIABETIC EYE Medical Center EXAM] Future Scheduled [address] [facility] - Test 00:00:00 examination Medical Center (regime/therapy) [code = 602113413] Future Scheduled 1964 Urine screening for [facility] - Test 00:00:00 protein (procedure) Medical Center [code = 483479739] Future Scheduled [address] [facility] - Test 00:00:00 malignant neoplasm of [facility] breast (procedure) [code = 926290739] Future Scheduled [address] [facility] - Test 00:00:00 malignant neoplasm of [facility] colon (procedure) [code = 457891040] Results Test Description Test Time Test Comments Results Result Sourc e Comments RAD, CHEST, 1 2019-12-30 Reason for FINAL REPORT VIEW, NON DEPT 16:52:00 exam:->dyspnea PATIENT ID: Should this be [id number] EXAM: performed at Chest one view the COMPARISON: December?->Yes 2019 CLINICAL HISTORY: Dyspnea FINDINGS: There is persistent cardiomegaly. There is no evidence of pulmonary consolidation, pleural effusion, or pneumothorax. The regional osseous structures are unremarkable. Signed: Carlita Israelort Verified Date/Time: 12/30/2019 16:52:28 Reading Location: [address] Consult Reading Room chest 1 view 2019-12-30 Interface, External [facility] portable / 16:52:00 Ris In - 12/30/2019 - Med ical bedside 4:54 PM CDINAL Center REPORT EXAM: Chest one view COMPARISON: December 27, 2019 CLINICAL HISTORY: Dyspnea FINDINGS: There is persistent cardiomegaly. There is no evidence of pulmonary consolidation, pleural effusion, or pneumothorax. The regional osseous structures are unremarkable. Signed: Carlita Israel MDReport Verified Date/Time: 12/30/2019 16:52:28 Reading Location: [facility] B1 C013W Consult Reading Room -Glucose meter 2019-12-30 16:38:00 Test Item Value Reference Range Interpretation Comme nts POC-Glucose Meter (test code = 88 mg/dL 70-110 : TESTED AT [facility] [address]) [facility], [address]: Almond Paste Mixer/Techni stephanie ID = [id number] for IVA BARTON E Lab Interpretation (test code = Normal 04040-0) [facility] [id number] 16:38:00 Test Item Value Reference Range Interpretation Comments POC-GLUCOSE METER 88 mg/dL 70-110 : TESTED A T [facility] [address] (BEAKER) (test code = [address] R [facility], 1538) [address]: Almond Paste Mixer/Techni stephanie ID = [id number] for STEFFI PALAK NESS Peripheral Blood Smear - Path [id number] 16:25:00 Test Item Value Reference Range Interpretation Comments Pathologist Review Mild normocytic (test code = 2640) normochromic anemia, moderate anisopoikilocytosis and polychromasia. Left shifted WBCs with occasional myeloid precursors. No blasts seen. Adequate platelets with essentially unremarkable morphology. Pathologist: (test Mirian Beck, code = 2849) Angela [facility] - PATHOLOGIST REVIEW 2019-12-30 16:25:00 Test Item Value Reference Range Interpretation Comments PERIPHERAL SMR Mild normocytic REVIEW (BEAKER) normochromic anemia, (test code = 2640) moderate anisopoikilocytosis and polychromasia. Left shifted WBCs with occasional myeloid precursors. No blasts seen. Adequate platelets with essentially unremarkable morphology. [id number] Mirian Beck, 112 (BEAKER) (test M.D code = 2849) Treadmill tolerance(Non-Nuclear Treadmill)2019-12-30 15:06:51Interface, External Ris In - 12/30/2019 3:07 PM CDTProtocol Name Regadenoson Time In Exercise Phase 00:01:00 Max. Systolic BP 127 mmHgMax Diastolic BP 82 mmHgMax Heart Rate 102 BPMMax Predicted Heart Rate 155 BPMReason For Termination Predetermined end point Reason for Test Coronary artery disease Evaluation/Hx ACB Target HR Formula (220 - Age)*100% Arrhythmias Premature Ventricular Contractions Resting ECG Atrial Fibrillation,RAD,Inferior Twave inversion ST Changes No Significant Changes Overall Impression Indeterminate due to pharmacological stress* Chest Pain none HR Response To Exercise BP Response To Exercise Eliquis,Sotalol,AldactoneConfirmed by fellow Bryant Barrios ([id number]) on 12/30/2019 9:43:33 AMConfirmed by Pineda Sweet ([id number]) on 12/30/2019 3:06:46 [facility] [id number] 11:59:00 Test Item Value Reference Range Interpretation Comments POC-GLUCOSE METER 79 mg/dL 70-110 : TESTED A T [facility] [address] (CADENCE) (test code = JULIO Galvan [facility], 1538) [address]: Almond Paste Mixer/Techni stephanie ID = [id number] for STEFFI HOLLEY NESS PET/CT, CARDIAC PERF REST AND [id number] 10:39:00Reason for exam:->CAD FINAL REPORT PROCEDURE: MYOCARDIAL PERFUSION PET/CT IMAGING (Rest/Stress)CPT CODE: 99378 INDICATION: CAD, obesity BMI=39 CARDIOVASCULAR PROFILE:CAD History: Known CAD with history of coronary artery bypass graft surgery, CHF, abnormal EKG; atrial fibrillation with rapid ventricu lar response, obesitySymptoms: DyspneaRisk Factors: Diabetes, hypertension, obesity, history of strokeBMI: 39.1Medications: Eliquis, sotalol, Aldactone STRESS PROTOCOL:Pharmacologic stress was achievedwith a 10-second intravenous infusion of regadenoson 0.4 mg. The radiopharmaceutical was administered 30 seconds after the start of the regadenoson infusion. IMAGING PROTOCOL:Limited low-dose CT imaging was performed for attenuation correction. 40.2 mCi of Rb-82 chloride was injected intravenously at rest, and gated PET images were obtained. Then, 40.2 mCi of Rb-82 chloride was injected intravenouslyat peak stress, and gated PET images were obtained. Image quality is good. REST FINDINGS:HR: 88/minBP: 130/78 mmHgPrelim. EKG: Atrial fibrillation, right axis deviation, inferior T wave inversions.Perfusion: Normal.Wall Motion: Normal (LVEF 47%).LV Volume: Normal. STRESS FINDINGS:HR: 102/min (65% of MPHR)BP: 127/82 mmHgPrelim. EKG: No ischemic changes.Symptoms: Headache, dyspnea (treatment not require d).Perfusion: There is a medium size, mild severity, perfusion defect involving the mid-anterior andmid-anteroseptal segments of the LV, as well as the apical and periapical segments.Wall Motion: Mildgeneralized LV hypokinesis (LVEF 46%).LV Volume: Not significantly changed from rest. IMPRESSION:1. Abnormal study.2. Abnormal myocardial perfusion. There is a medium size, mild severity, reversible perfusion abnormality in the mid anterior, anteroseptal, and apical/periapical LV.3. Mildly decreased resting LVEF, which does not deteriorate with pharmacologic stress.4. Normal extracardiac tracer distri bution.5. There is no prior study for comparison. Signed: David Porter MDReport Verified Date/Time: 12/30/2019 10:39:01 Reading Location: [address] Reading Room N Myocardial Perfusion Pet/CT (Rest & Stress)2019-12-30 10:39:00Interface, External Ris In - 12/30/2019 10:41 AM CDTFINAL REPORT PROCEDURE: MYOCARDIAL PERFUSION PET/CT IMAGING (Rest/Stress)CPT CODE: 20743 INDICATION: CAD, obesity BMI=39 CARDIOVASCULAR PROFILE:CAD History: Known CAD with history of coronary artery bypass graft surgery, CHF, abnormal EKG; atrial fibrillation with rapid ventricular response, obesitySymptoms: DyspneaRisk Factors: Diabetes, hypertension, obesity, history of strokeBMI: 39.1Medications: Eliquis, sotalol, Aldactone STRESS PROTOCOL:Pharmacologic stress was achieved with a 10-second intravenous infusion of regadenoson 0.4 mg. The radiopharmaceutical was administered 30 seconds after the start of the regadenoson infusion. IMAGING PROTOCOL:Limited low-dose CT imaging was performed for attenuation correction. 40.2 mCi of Rb-82 chloride was injected intravenously at rest, and gated PET images were obtained. Then, 40.2 mCi of Rb- 82 chloride was injected intravenously at peak stress, and gated PET images were obtained. Image quality is good. REST FINDINGS:HR: 88/minBP: 130/78 mmHgPrelim. EKG: Atrial fibrillation, right axis deviation, inferior T wave inversions.Perfusion: Normal.Wall Motion: Normal (LVEF 47%).LV Volume: Normal. STRESS FINDINGS:HR: 102/min (65% of MPHR)BP: 127/82 mmHgPrelim. EKG: No ischemic changes.Symptoms: Headache, dyspnea (treatment not required).Perfusion: There is a medium size, mild severity, perfusion defect involving the mid-anterior and mid-anteroseptal segments of the LV, as well as the apical and periapical segments.Wall Motion: Mild generalized LV hypokinesis (LVEF 46%).LV Volume:Not significantly changed from rest. IMPRESSION:1. Abnormal study.2. Abnormal myocardial perfusion. There is a medium size, mild severity, reversible perfusion abnormality in the mid anterior, anteroseptal, and apical/periapical LV.3. Mildly decreased resting LVEF, which does not deteriorate with pharm acologic stress.4. Normal extracardiac tracer distribution.5. There is no prior study for comparison. Signed: David Porter MDReport Verified Date/Time: 12/30/2019 10:39:01 Reading Location: [address] Reading Room [facility] Molecular [id number] 08:53:00 Test Item Value Reference Range Interpretation Comments Anti 10A-Lovenox (test 1.81 u/ml 0.6-2 code = 1605) MILADIS (test code = MILADIS) Anti-Factor 10-A Level (Heparin Assay for Low Molecular Weight Heparin)Monitoring Guidelines: Blood samples should be obtained 4 hours post subcutaneous injection (time of Peak level) Therapeutic Peak Levels: 0.6-1.0 units/mL twice daily enoxaparin 1.0-2.0 units/mL once daily enoxaparin Ref: CHEST 2012;141:q42p-d65h Lab Interpretation (test Normal code = 93376-6) [facility] - LOW MOLECULAR [id number] 08:53:00 Test Item Value Reference Range Interpretation Comments LOVENOX-ANTI 10A (BEAKER) (test 1.81 u/ml 0.60-2.00 code = 1605) Anti-Factor 10-A Level (Heparin Assay for Low Molecular Weight Heparin)Monitoring Guidelines: Blood samples should be obtained 4 hours post subcutaneous injection (time of Peak level) Therapeutic Peak Levels: 0.6-1.0 units/mL twice daily enoxaparin 1.0-2.0 units/mL once daily enoxaparinRef: CHEST 2012;141:[id number] with platelet count + automated [id number] 08:30:00 Test Item Value Reference Range Interpretation Comments WBC (test code = 6690-2) 9.0 3.5- 10.5 K/L RBC (test code = 789-8) 4.05 3.93- 5.22 M/L MCHC (test code = 786-4) 28.9 32.2- 35.5 GM/DL L Hematocrit (test code = 4544-3) 36.7 % 34.1-44.9 MCV (test code = 787-2) 90.6 fL 79.4-94.8 MCH (test code = 785-6) 26.2 pg 25.6-32.2 RDW (test code = 788-0) 18.3 % 11.7-14.4 H Platelets (test code = 777-3) 206 150- 450 K/CU MM MPV (test code = 96545-0) 8.9 fL 9.4-12.3 L nRBC (test code = 413) 0 0- 0 /100 WBC Lab Interpretation (test code = Abnormal 49241-1) [facility] Hospital[facility]ual [id number] 08:30:00 Test Item Value Reference Range Interpretation Comments % Neutros (manual) (test code = 70 % 1359) % Lymphs (manual) (test code = 8 % 1360) % Monos (manual) (test code = 1361) 8 % % Eos (manual) (test code = 1362) 2 % % Baso (manual) (test code = 1363) 1 % % Metamyelo (manual) (test code = 2 % 0-0 H 258) % Myelo (manual) (test code = 1594) 5 % 0-0 H % Bands (manual) (test code = 1348) 3 % 0-10 % Atypical Lymphs (test code = 260) 1 % 0-0 H # Neutros (manual) (test code = 6.30 1.80- 8.00 K/L 1365) # Lymphs (manual) (test code = 0.72 1.48- 4.50 K/L L 1366) # Monos (manual) (test code = 1367) 0.72 0.00- 1.30 K/L # Eos (manual) (test code = 1368) 0.18 0.00- 0.50 K/L # Baso (manual) (test code = 1369) 0.09 0.00- 0.20 K/L # Metamyelo (manual) (test code = 0.18 0.00- 0.00 K/L H 261) # Bands (manual) (test code = 1349) 0.3 0.0- 0.8 K/L # Atypical Lymphs (test code = 263) 0.09 0.00- 0.00 K/L H # Myelo (manual) (test code = 1593) 0.45 0.00- 0.00 K/L H Total Counted (test code = 1351) 100 Bands plus Segmented Neutrophils 6.57 (test code = 1352) WBC Morphology (test code = 487) Normal Platelet Morphology (test code = Normal 486) Anisocytosis (test code = 961) 1+ few Polychromasia (test code = 478) 1+ few Lab Interpretation (test code = Abnormal 23314-5) [facility] W/PLT COUNT & AUTO [id number] 08:30:00 Test Item Value Reference Range Interpretation Comments WHITE BLOOD CELL COUNT (BEAKER) 9.0 K/ L 3.5-10.5 (test code = 775) RED BLOOD CELL COUNT (BEAKER) 4.05 M/ L 3.93-5.22 (test code = 761) HEMOGLOBIN (BEAKER) (test code = 10.6 GM/DL 11.2-15.7 L 410) HEMATOCRIT (BEAKER) (test code = 36.7 % 34.1-44.9 411) MEAN CORPUSCULAR VOLUME (BEAKER) 90.6 fL 79.4-94.8 (test code = 753) MEAN CORPUSCULAR HEMOGLOBIN 26.2 pg 25.6-32.2 (BEAKER) (test code = 751) MEAN CORPUSCULAR HEMOGLOBIN CONC 28.9 GM/DL 32.2-35.5 L (BEAKER) (test code = 752) RED CELL DISTRIBUTION WIDTH 18.3 % 11.7-14.4 H (BEAKER) (test code = 412) PLATELET COUNT (BEAKER) (test 206 K/CU MM 150-450 code = 756) MEAN PLATELET VOLUME (BEAKER) 8.9 fL 9.4-12.3 L (test code = 754) NUCLEATED RED BLOOD CELLS 0 /100 WBC 0-0 (BEAKER) (test code = 413) (MANUAL DIFFERENTIAL)2019-12-30 08:30:00 Test Item Value Reference Range Interpretation Comments NEUTROPHILS - REL (DIFF) (BEAKER) 70 % (test code = 1359) LYMPHOCYTES - REL (DIFF) (BEAKER) 8 % (test code = 1360) MONOCYTES - REL (DIFF) (BEAKER) 8 % (test code = 1361) EOSINOPHILS - REL (DIFF) (BEAKER) 2 % (test code = 1362) BASOPHILS - REL (DIFF) (BEAKER) 1 % (test code = 1363) METAMYELOCYTES-REL (DIFF) (BEAKER) 2 % 0-0 H (test code = 258) MYELOCYTES-REL (DIFF) (BEAKER) 5 % 0-0 H (test code = 1594) BANDS - REL (DIFF) (BEAKER) (test 3 % 0-10 code = 1348) ATYPICAL LYMPHOCYTE - REL (DIFF) 1 % 0-0 H (BEAKER) (test code = 260) NEUTROPHILS - ABS (DIFF) (BEAKER) 6.30 K/ L 1.80-8.00 (test code = 1365) LYMPHOCYTES - ABS (DIFF) (BEAKER) 0.72 K/ L 1.48-4.50 L (test code = 1366) MONOCYTES - ABS (DIFF) (BEAKER) 0.72 K/ L 0.00-1.30 (test code = 1367) EOSINOPHILS - ABS (DIFF) (BEAKER) 0.18 K/ L 0.00-0.50 (test code = 1368) BASOPHILS - ABS (DIFF) (BEAKER) 0.09 K/ L 0.00-0.20 (test code = 1369) METAMYELOCTYES - ABS (DIFF) 0.18 K/ L 0.00-0.00 H (BEAKER) (test code = 261) BANDS-ABS (DIFF) (BEAKER) (test 0.3 K/ L 0.0-0.8 code = 1349) ATYPICAL LYMPHOCYTES - ABS (DIFF) 0.09 K/ L 0.00-0.00 H (BEAKER) (test code = 263) MYELOCYTES-ABS (DIFF) (BEAKER) 0.45 K/ L 0.00-0.00 H (test code = 1593) TOTAL COUNTED (BEAKER) (test code = 100 1351) BANDS + SEGMENTED NEUTROPHILS 6.57 (BEAKER) (test code = 1352) WBC MORPHOLOGY (BEAKER) (test code Normal = 487) PLT MORPHOLOGY (BEAKER) (test code Normal = 486) ANISOCYTOSIS (BEAKER) (test code = 1+ few 961) POLYCHROMATOPHILLIC RBCS(BEAKER) 1+ few (test code = 478) Prothrombin time/[id number] 07:29:00 Test Item Value Reference Range Interpretation Comments Protime (test code = 20.5 11.9- 14.2 H 5902-2) seconds INR (test code = 1.81 <=5.90 6301-6) MILADIS (test code = MILADIS) Effective 08/20/2018: PT Reference Range ChangeNew: 11.9-14.2 Previous: 11.7-14.7 RECOMMENDED COUMADIN/WARFARIN INR THERAPY RANGESSTANDARD DOSE: 2.0-3.0 Includes: PROPHYLAXIS for venous thrombosis, systemic embolization; TREATMENT for venous thrombosis and/or pulmonary embolus.HIGH RISK: Target INR is 2.5-3.5 for patients wiht mechanical heart valves. Lab Interpretation Abnormal (test code = 33831-2) [facility]/[id number] 07:29:00 Test Item Value Reference Range Interpretation Comments PROTIME (BEAKER) (test code = 20.5 seconds 11.9-14.2 H 759) INR (BEAKER) (test code = 370) 1.81 <=5.90 Effective 08/20/2018: PT Reference Range ChangeNew: 11.9-14.2 Previous: 11.7- 14.7RECOMMENDED COUMADIN/WARFARIN INR THERAPY RANGESSTANDARD DOSE: 2.0-3.0 Includes: PROPHYLAXIS for venous thrombosis, systemic embolization; TREATMENT for venous thrombosis and/or pulmonary embolus.HIGH RISK: Target INR is2.5-3.5 for patients wiht mechanical heart valves.Basic Metabolic [id number] 07:04:00 Test Item Value Reference Range Interpretation Comments Sodium (test code = 137 meq/L 768-677 3036-2) Potassium (test code = 4.4 meq/L 3.5-5.1 2823-3) Chloride (test code = 99 meq/L 98-107 2075-0) CO2 (test code = 30 meq/L 22-29 H 2028-9) BUN (test code = 17 mg/dL 7-21 3094-0) Creatinine (test code 0.82 mg/dL 0.57-1.25 = 2160-0) Glucose (test code = 106 mg/dL 70-105 H 2345-7) Calcium (test code = 8.4 mg/dL 8.4-10.2 84406-0) EGFR (test code = 70 mL/min/1.73 [place] [address]-7) NOT ACCURATE CREATININE CLEARANCE IN PREDICTING GLOMERULAR FILTRATION RATE . ESTIMATED GFR I S NOT APPLICABLE FOR DIALYSIS PATIENTS. MILADIS (test code = MILADIS) Almond Paste Mixer ID - PEYMAN M Lab Interpretation Abnormal (test code = 56068-1) [facility] Hospital[facility] [id number] 07:04:00 Test Item Value Reference Range Interpretation Comments Triglycerides (test 88 mg/dL code = 2571-8) Cholesterol (test code 108 mg/dL = 2093-3) HDL (test code = 15 mg/dL 2084-9) LDL Calculated (test 75 mg/dL code = 36249-2) MILADIS (test code = MILADIS) Triglyceride Reference Range: Low Risk <150 Borderline 150-199 High Risk 200-499 Very High Risk >=500 Cholesterol Reference Range: Low Risk <200 Borderline 200-239 High Risk >240 HDL Cholesterol Reference Range: Low Risk >=60 High Risk <40 LDL Cholesterol Reference Range: Optimal <100 Near Optimal 100-129 Borderline 130-159 High 160-189 Very High >=190 Almond Paste Mixer OLIVER Higgins [facility] HospitalHepatic function [id number] 07:04:00 Test Item Value Reference Range Interpretation Comments Protein, Total (test code 7.2 6.0- 8.3 gm/dL = 2885-2) Albumin (test code = 3.0 g/dL 3.5-5 L 05805-8) Total Bilirubin (test code 1.0 mg/dL 0.2-1.2 = 1974-2) Bilirubin, Direct (test 0.8 mg/dL 0.1-0.5 H code = 1967-7) Alkaline Phosphatase (test 167 U/L 40-150 H code = 6768-6) AST (test code = 1920-8) 595 U/L 5-34 H ALT (test code = 1742-6) 562 U/L 6-55 H MILADIS (test code = MILADIS) Almond Paste Mixer [facility] Lab Interpretation (test Abnormal code = 31158-7) [facility] HospitalLactate dehydrogenase (LDH)2019-12-30 07:04:00 Test Item Value Reference Range Interpretation Comments LDH (test code = 2532-0) 423 U/L 125-220 H MILADIS (test code = MILADIS) Almond Paste Mixer [facility] Lab Interpretation (test Abnormal code = 64028-6) [facility] Hospital[facility]esium2020-10-07 07:04:00 Test Item Value Reference Range Interpretation Comments Magnesium (test code = 1.8 mg/dL 1.6-2.6 54461-1) MILADIS (test code = MILADIS) Almond Paste Mixer [facility] Lab Interpretation (test Normal code = 97226-1) [facility] Hospital[facility]osph[facility]2020-10-07 07:04:00 Test Item Value Reference Range Interpretation Comments Phosphorus (test code = 2.8 mg/dL 2.3-4.7 2777-1) MILADIS (test code = MILADIS) Almond Paste Mixer [facility] Lab Interpretation (test Normal code = 63116-9) [facility] HospitalPHOSPHORUS2020-10-07 07:04:00 Test Item Value Reference Range Interpretation Comments PHOSPHORUS (BEAKER) (test code = 2.8 mg/dL 2.3-4.7 604) Almond Paste Mixer ID - PEYMAN [id number] 07:04:00 Test Item Value Reference Range Interpretation Comments MAGNESIUM (BEAKER) (test code = 1.8 mg/dL 1.6-2.6 627) Almond Paste Mixer ID - PEYMAN MBASIC METABOLIC [id number] 07:04:00 Test Item Value Reference Range Interpretation Comments SODIUM (BEAKER) 137 meq/L 136-145 (test code = 381) POTASSIUM (BEAKER) 4.4 meq/L 3.5-5.1 (test code = 379) CHLORIDE (BEAKER) 99 meq/L 98-107 (test code = 382) CO2 (BEAKER) (test 30 meq/L 22-29 H code = 355) BLOOD UREA NITROGEN 17 mg/dL 7-21 (BEAKER) (test code = 354) CREATININE (BEAKER) 0.82 mg/dL 0.57-1.25 (test code = 358) GLUCOSE RANDOM 106 mg/dL 70-105 H (BEAKER) (test code = 652) CALCIUM (BEAKER) 8.4 mg/dL 8.4-10.2 (test code = 697) EGFR (BEAKER) (test 70 mL/min/1.73 ESTIMA JOSE GFR IS code = 1092) sq m NOT ACCURATE CREATININE CLEARANCE IN PREDICTING GLOMERULAR FILTRATION RATE . ESTIMATED GFR I S NOT APPLICABLE FOR DIALYSIS PATIEN TS. Almond Paste Mixer ID - PEYMAN MLIPID [id number] 07:04:00 Test Item Value Reference Range Interpretation Comments TRIGLYCERIDES (BEAKER) (test code = 88 mg/dL 540) CHOLESTEROL (BEAKER) (test code = 108 mg/dL 631) HDL CHOLESTEROL (BEAKER) (test code 15 mg/dL = 976) LDL CHOLESTEROL CALCULATED (BEAKER) 75 mg/dL (test code = 633) Triglyceride Reference Range: Low Risk <150 Borderline 150-199 High Risk 200-499 Very High Risk >=500Cholesterol Reference Range: Low Risk <200 Borderline 200-239 High Risk >240HDL Cholesterol Reference Range: Low Risk >=60 High Risk <40LDL Cholesterol Reference Range: Optimal <100 Near Optimal 100-129 Borderline 130-159 High 160-189 Very High >=190 Almond Paste Mixer ID - PEYMAN EPATIC FUNCTION [id number] 07:04:00 Test Item Value Reference Range Interpretation Comments TOTAL PROTEIN (BEAKER) (test code = 7.2 gm/dL 6.0-8.3 770) ALBUMIN (BEAKER) (test code = 1145) 3.0 g/dL 3.5-5.0 L BILIRUBIN TOTAL (BEAKER) (test code 1.0 mg/dL 0.2-1.2 = 377) BILIRUBIN DIRECT (BEAKER) (test 0.8 mg/dL 0.1-0.5 H code = 706) ALKALINE PHOSPHATASE (BEAKER) (test 167 U/L 40-150 H code = 346) AST (SGOT) (BEAKER) (test code = 595 U/L 5-34 H 353) ALT (SGPT) (BEAKER) (test code = 562 U/L 6-55 H 347) Almond Paste Mixer ID - PEYMAN MLACTATE DEHYDROGENASE (LDH)2019-12-30 07:04:00 Test Item Value Reference Range Interpretation Comments LACTATE DEHYDROGENASE (BEAKER) (test 423 U/L 125-220 H code = 635) Almond Paste Mixer ID - PEYMAN MCalcium, [id number] 06:33:00 Test Item Value Reference Range Interpretation Comments Calcium, Ion (test code = 1994-3) 1.15 mmol/L 1.12-1.27 pH, Blood (test code = 75916-9) 7.34 [facility] [id number] 06:33:00 Test Item Value Reference Range Interpretation Comments CALCIUM IONIZED (BEAKER) (test 1.15 mmol/L 1.12-1.27 code = 698) PH, BLOOD (BEAKER) (test code = 7.34 1810) POCT-GLUCOSE [id number] 20:49:00 Test Item Value Reference Range Interpretation Comments POC-GLUCOSE METER 221 mg/dL 70-110 H : TESTED A T [facility] 6720 (BEAKER) (test code = JULIO DELCID [place], 1538) 09267: Almond Paste Mixer/Techni stephanie ID = [id number] for DANA FORDE POCT-GLUCOSE [id number] 16:45:00 Test Item Value Reference Range Interpretation Comments POC-GLUCOSE METER 242 mg/dL 70-110 H : [facility] (BE[facility]ER) (test code = JULIO DELCID [place], 1538) 06055: Almond Paste Mixer/Techni stephanie ID = [id number] for JOHN WOODARD Hepatitis B surface [id number] 13:34:00 Test Item Value Reference Range Interpretation Comments Hep B S Ab (test code = <8.0 <8.0 mIU/mL 75860-5) MILADIS (test code = MILADIS) Almond Paste Mixer ID - PARKER C Lab Interpretation (test Normal code = 05728-4) [facility] [id number] 13:34:00 Test Item Value Reference Range Interpretation Comments HEPATITIS B SURFACE ANTIBODY < mIU/mL <8.0 (BEAKER) (test code = 647) Almond Paste Mixer ID - PARKER [facility] B surface [id number] 13:13:00 Test Item Value Reference Range Interpretation Comments HBsAg Screen (test code Nonreactive Nonreactive = 5195-3) MILADIS (test code = MILADIS) Specimen is considered negative for HBsAg. Lab Interpretation (test Normal code = 96969-0) [facility] B core antibody, [id number] 13:13:00 Test Item Value Reference Range Interpretation Comments Hep B C IgM (test code = Nonreactive Nonreactive 50223-4) MILADIS (test code = MILADIS) Almond Paste Mixer ID - PARKER C Lab Interpretation (test Normal code = 14323-5) [facility], [id number] 13:13:00 Test Item Value Reference Range Interpretation Comments Hep A IgM (test code = Nonreactive Nonreactive 99944-6) MILADIS (test code = MILADIS) Almond Paste Mixer ID - PARKER C Lab Interpretation (test Normal code = 31859-1) [facility] B SURFACE [id number] 13:13:00 Test Item Value Reference Range Interpretation Comments HEPATITIS B SURFACE ANTIGEN (2) Nonreactive Nonreactive (BEAKER) (test code = 2585) Specimen is considered negative for HBsAg.HEPATITIS B CORE ANTIBODY, IGM 2019-12-29 13:13:00 Test Item Value Reference Range Interpretation Comments HEPATITIS B CORE IGM ANTIBODY Nonreactive Nonreactive (BEAKER) (test code = 645) Almond Paste Mixer ID - PARKER CHEPATITIS A ANTIBODY, [id number] 13:13:00 Test Item Value Reference Range Interpretation Comments HEPATITIS A IGM ANTIBODY (BEAKER) Nonreactive Nonreactive (test code = 498) Almond Paste Mixer ID - PARKER CPOCT-GLUCOSE [id number] 12:20:00 Test Item Value Reference Range Interpretation Comments POC-GLUCOSE METER 175 mg/dL 70-110 H : TESTED A T [facility] 6720 (BEAKER) (test code = RALPHPALAK DELCID [place], 1538) 81003: Almond Paste Mixer/Techni stephanie ID = [id number] for JOHN WOODARD Manual [id number] 11:32:00 Test Item Value Reference Range Interpretation Comments % Neutros (test code = 62 % 2816) % Lymphs (test code = 9 % 2817) % Monos (test code = 8 % 2818) % Eos (test code = 2819) 4 % % Metamyelo (test code = 6 % 0-0 H 2821) % Myelo (test code = 4 % 0-0 H 2822) % Bands (test code = 5 % 0-10 2826) % Atypical Lymphs (test 2 % 0-0 H code = 2829) # Neutros (test code = 6.82 K/ul 1.56-6.13 H 2830) # Lymphs (test code = 0.99 K/ul 1.18-3.74 L 2831) # Monos (test code = 0.88 K/uL 0.24-0.36 H 2832) # Eos (test code = 2834) 0.44 K/uL 0.04-0.36 H # Metamyelo (test code = 0.66 K/uL 0-0 H 2836) # Myelo (test code = 0.44 K/uL 0-0 H 2837) # Bands (test code = 0.55 K/uL 0-0.8 2840) # Atypical Lymphs (test 0.22 K/uL 0-0 H code = 2858) Total Counted (test code 100 = 1351) nRBC (manual) (test code 2 0- 0 /100 WBC H = 1353) WBC Morphology (test Normal code = 487) Platelet Morphology Normal (test code = 486) Polychromasia (test code 1+ few = 478) Hypochromia (test code = 1+ few 963) Anisocytosis (test code 1+ few = 961) Artifact (test code = Present 3432) Platelet Conc (test code Adequate = 3438) MILADIS (test code = MILADIS) Almond Paste Mixer ID - Mary OverholtUser comments: Slide comments: Lab Interpretation (test Abnormal code = 27126-7) [facility] W/PLT COUNT & AUTO [id number] 11:32:00 Test Item Value Reference Range Interpretation Comments WHITE BLOOD CELL COUNT (BEAKER) 11.0 K/ L 3.5-10.5 H (test code = 775) RED BLOOD CELL COUNT (BEAKER) 4.01 M/ L 3.93-5.22 (test code = 761) HEMOGLOBIN (BEAKER) (test code = 10.7 GM/DL 11.2-15.7 L 410) HEMATOCRIT (BEAKER) (test code = 36.4 % 34.1-44.9 411) MEAN CORPUSCULAR VOLUME (BEAKER) 90.8 fL 79.4-94.8 (test code = 753) MEAN CORPUSCULAR HEMOGLOBIN 26.7 pg 25.6-32.2 (BEAKER) (test code = 751) MEAN CORPUSCULAR HEMOGLOBIN CONC 29.4 GM/DL 32.2-35.5 L (BEAKER) (test code = 752) RED CELL DISTRIBUTION WIDTH 18.3 % 11.7-14.4 H (BEAKER) (test code = 412) PLATELET COUNT (BEAKER) (test 239 K/CU MM 150-450 code = 756) MEAN PLATELET VOLUME (BEAKER) 9.3 fL 9.4-12.3 L (test code = 754) NUCLEATED RED BLOOD CELLS 1 /100 WBC 0-0 H (BEAKER) (test code = 413) (CELLAVISION MANUAL DIFF)2019-12-29 11:32:00 Test Item Value Reference Range Interpretation Comments NEUTROPHILS - REL 62 % (CELLAVISION)(BEAKER) (test code = 2816) LYMPHOCYTES - REL 9 % (CELLAVISION)(BEAKER) (test code = 2817) MONOCYTES - REL 8 % (CELLAVISION)(BEAKER) (test code = 2818) EOSINOPHILS - REL 4 % (CELLAVISION)(BEAKER) (test code = 2819) METAMYELOCYTES - REL 6 % 0-0 H (CELLAVISION)(BEAKER) (test code = 2821) MYELOCYTES - REL 4 % 0-0 H (CELLAVISION)(BEAKER) (test code = 2822) BANDS - REL (CELLAVISION)(BEAKER) 5 % 0-10 (test code = 2826) ATYPICAL LYMPHOCYTES - REL 2 % 0-0 H (CELLAVISION)(BEAKER) (test code = 2829) NEUTROPHILS - ABS 6.82 K/ul 1.56-6.13 H (CELLAVISION)(BEAKER) (test code = 2830) LYMPHOCYTES - ABS 0.99 K/ul 1.18-3.74 L (CELLAVISION)(BEAKER) (test code = 2831) MONOCYTES - ABS 0.88 K/uL 0.24-0.36 H (CELLAVISION)(BEAKER) (test code = 2832) EOSINOPHILS - ABS 0.44 K/uL 0.04-0.36 H (CELLAVISION)(BEAKER) (test code = 2834) METAMYELOCYTES - ABS 0.66 K/uL 0.00-0.00 H (CELLAVISION)(BEAKER) (test code = 2836) MYELOCYTES-ABS 0.44 K/uL 0.00-0.00 H (CELLAVISION)(BEAKER) (test code = 2837) BANDS - ABS (CELLAVISION)(BEAKER) 0.55 K/uL 0.00-0.80 (test code = 2840) ATYPICAL LYMPHOCYTES - ABS 0.22 K/uL 0.00-0.00 H (CELLAVISION)(BEAKER) (test code = 2858) TOTAL COUNTED (BEAKER) (test code 100 = 1351) MANUAL NRBC PER 100 CELLS (BEAKER) 2 /100 WBC 0-0 H (test code = 1353) WBC MORPHOLOGY (BEAKER) (test code Normal = 487) PLT MORPHOLOGY (BEAKER) (test code Normal = 486) POLYCHROMATOPHILLIC RBCS(BEAKER) 1+ few (test code = 478) HYPOCHROMIA (BEAKER) (test code = 1+ few 963) ANISOCYTOSIS (BEAKER) (test code = 1+ few 961) ARTIFACT (CELLAVISION)(BEAKER) Present (test code = 3432) PLATELET CONCENTRATION Adequate (CELLAVISION)(BEAKER) (test code = 3438) Almond Paste Mixer ID - Mary OverholtUser comments: Slide comments:Anti-Nuclear Antibody (NAVI)2019-12-29 10:54:00 Test Item Value Reference Range Interpretation Comments NAVI (test code = 83499-6) Positive Negative A MILADIS (test code = MILADIS) Test performed by IFA method. Lab Interpretation (test Abnormal code = 02807-0) [facility] T[facility] & [id number] 10:54:00 Test Item Value Reference Range Interpretation Comments NAVI Titer (test code = 14963-1) 1:160 NAVI Pattern (test code = 1781) Homogeneous [facility] HospitalANTI-NUCLEAR ANTIBODY (NAVI)2019-12-29 10:54:00 Test Item Value Reference Range Interpretation Comments ANTI-NUCLEAR ANTIBODY (NAVI) (BEAKER) Positive Negative A (test code = 418) Test performed by IFA method.NAVI TITER AND [id number] 10:54:00 Test Item Value Reference Range Interpretation Comments NAVI TITER (BEAKER) (test code = :160 1541) NAVI PATTERN (BEAKER) (test code = Homogeneous 1781) [id number] 08:30:00 Test Item Value Reference Range Interpretation Comments PHOSPHORUS (BEAKER) (test code = 2.1 mg/dL 2.3-4.7 L 604) Almond Paste Mixer ID - PARKER [id number] 08:30:00 Test Item Value Reference Range Interpretation Comments MAGNESIUM (BEAKER) (test code = 2.0 mg/dL 1.6-2.6 627) Almond Paste Mixer ID - PARKER CBASIC METABOLIC [id number] 08:30:00 Test Item Value Reference Range Interpretation Comments SODIUM (BEAKER) 136 meq/L 136-145 (test code = 381) POTASSIUM (BEAKER) 4.3 meq/L 3.5-5.1 (test code = 379) CHLORIDE (BEAKER) 101 meq/L 98-107 (test code = 382) CO2 (BEAKER) (test 26 meq/L 22-29 code = 355) BLOOD UREA NITROGEN 20 mg/dL 7-21 (BEAKER) (test code = 354) CREATININE (BEAKER) 0.82 mg/dL 0.57-1.25 (test code = 358) GLUCOSE RANDOM 85 mg/dL 70-105 (BEAKER) (test code = 652) CALCIUM (BEAKER) 8.3 mg/dL 8.4-10.2 L (test code = 697) EGFR (BEAKER) (test 70 mL/min/1.73 ESTIMA JOSE GFR IS code = 1092) sq m NOT ACCURATE CREATININE CLEARANCE IN PREDICTING GLOMERULAR FILTRATION RATE . ESTIMATED GFR I S NOT APPLICABLE FOR DIALYSIS PATIEN TS. Almond Paste Mixer ID - PARKER CHEPATIC FUNCTION [id number] 08:30:00 Test Item Value Reference Range Interpretation Comments TOTAL PROTEIN (BEAKER) (test code = 7.0 gm/dL 6.0-8.3 770) ALBUMIN (BEAKER) (test code = 1145) 2.9 g/dL 3.5-5.0 L BILIRUBIN TOTAL (BEAKER) (test code 0.9 mg/dL 0.2-1.2 = 377) BILIRUBIN DIRECT (BEAKER) (test 0.7 mg/dL 0.1-0.5 H code = 706) ALKALINE PHOSPHATASE (BEAKER) (test 162 U/L 40-150 H code = 346) AST (SGOT) (BEAKER) (test code = 907 U/L 5-34 H 353) ALT (SGPT) (BEAKER) (test code = 688 U/L 6-55 H 347) Almond Paste Mixer ID - PARKER CPOCT-GLUCOSE [id number] 08:02:00 Test Item Value Reference Range Interpretation Comments POC-GLUCOSE METER 88 mg/dL 70-110 : [facility] (BEAKER) (test code = JULIO DELCID [place], 1538) 07075: Almond Paste Mixer/Techni stephanie ID = [id number] for JOHN WOODARD PROTHROMBIN [id number] 06:54:00 Test Item Value Reference Range Interpretation Comments PROTIME (BEAKER) (test code = 22.6 seconds 11.9-14.2 H 759) INR (BEAKER) (test code = 370) 2.05 <=5.90 Effective 08/20/2018: PT Reference Range ChangeNew: 11.9-14.2 Previous: 11.7- 14.7RECOMMENDED COUMADIN/WARFARIN INR THERAPY RANGESSTANDARD DOSE: 2.0-3.0 Includes: PROPHYLAXIS for venous thrombosis, systemic embolization; TREATMENT for venous thrombosis and/or pulmonary embolus.HIGH RISK: Target INR is2.5-3.5 for patients wiht mechanical heart valves.CALCIUM, [id number] 06:30:00 Test Item Value Reference Range Interpretation Comments CALCIUM IONIZED (BEAKER) (test 1.15 mmol/L 1.12-1.27 code = 698) PH, BLOOD (BEAKER) (test code = 7.36 1810) U/S, ABDOMINAL, WITH [id number] 23:22:00Reason for exam:->elevated AST/ALT, concern for underlying liver diseaseFINAL REPORT INDICATION: elevated AST/ALT, concern for underlying liver disease COMPARISON: None TECHNIQUE: Real-time martin-scale transabdominal and color and spectral Doppler ultrasound. FINDINGS:Liver: Size: 15.0cm. Echogenicity: Normal. Masses/lesions: None.Surface Nodularity: None. Intrahepatic bile ducts: Normal. Common bile duct: 0.5cm. MPV:1.0cm. Gallbladder: Stones: Sludge is seen layering in the gallbladder lumen with multiple echog enic foci possibly representing cholelithiasis.. Wall thickness: 0.4 cm. Pericholecystic fluid: None. Sonographic Paredes's sign: No sonographic Paredes's sign. Pancreas: Head and uncinate process: Unremarkable. Body and tail: Not well-seen. Spleen: Size: 11.3cm. Echogenicity: Unremarkable. Right kidney: Size: 11.2 x 4.7 x 5.1 cm. Parenchyma: Normal echogenicity.No cysts. No stones. Hydronephrosis: None. Left kidney: Size: 11.8 x 4.9 x 5.3 cm. Parenchyma: Normal echogenicity. No cysts. No stones. Hydronephrosis: None. Ascites: None. Trace rightpleural effusion. Regional Vasculature: The visible abdominal aorta, IVC and hepatic veins are patent. The aorta measures 1.9 cm proximally, 1.6 cm in the midportion, distally not well-seen secondary to poor acoustic windowing. Color and Spectral imaging:MPV: Diameter: 1.0 cm Flow: Hepatopedal. Velocity: 41.2 cm/sec Filling defects: NoneLeft and right portal veins: Patent. Flow: Antegrade Filling defects: None. Hepatic arteries: Patent RI proper hepatic: 0.7 RI right hepatic: 0.7 RI left hepatic: 0.6 IVC, Hepatic venous confluence, right HV, middle HV andleft HV are patent. Additional findings: None. IMPRESSION: Unremarkable abdominal ultrasound and hepatic Doppler examination. Biliary sludge with possible cholelithiasis however no findings to suggestacute cholecystitis. Trace right pleural effusion. Signed: Isis Chamberlain MDReport Verified Date/Time: 12/28/2019 23:22:17 US abdominal with [id number] 23:22:00Interface, External Ris In - 12/28/2019 11:24 PM CDTFINAL REPORT INDICATION: elevated AST/ALT, concern for underlying liver disease COMPARISON: None TECHNIQUE: Real-time martin-scale transabdominal and color and spectral Doppler ultrasound. FINDINGS:Liver: Size: 15.0cm. Echogenicity: Normal. Masses/lesions: None. Surface Nodularity: None. Intrahepatic bile ducts: Normal. Common bile duct: 0.5cm. MPV: 1.0cm. Gallbladder: Stones: Sludge is seen layering in the gallbladder lumen with multiple echogenic foci possibly representing cholelithiasis.. Wall thickness: 0.4 cm. Pericholecystic fluid: None. Sonographic Paredes's sign: No sonographic Paredes's sign. Pancreas: Head and uncinate process: Unremarkable. Body and tail: Not well-seen. Spleen: Size: 11.3cm. Echogenicity: Unremarkable. Right kidney: Size: 11.2 x 4.7 x 5.1 cm. Parenchyma: Normal echogenicity. No cysts. No stones. Hydronephrosis: None. Left kidney: Size: 11.8 x 4.9 x 5.3 cm. Parenchyma: Normal echogenicity. No cysts. No stones. Hydronephrosis: None. Ascites: None. Trace right pleural effusion. Regional Vasculature: The visible abdominal aorta, IVC and hepatic veins are patent. The aorta measures 1.9 cm proximally, 1.6 cm in the midportion, distally not well-seen secondary to poor acoustic windowing. Color and Spectral imag ing:MPV: Diameter: 1.0 cm Flow: Hepatopedal. Velocity: 41.2 cm/sec Filling defects: NoneLeft and right portal veins: Patent. Flow: Antegrade Filling defects: None. Hepatic arteries: Patent RI proper hepatic: 0.7 RI right hepatic: 0.7 RI left hepatic: 0.6 IVC, Hepatic venous confluence, right HV, middle HV and left HV are patent. Additional findings: None. IMPRESSION: Unremarkable abdominal ultrasound and hepatic Doppler examination. Biliary sludge with possible cholelithiasis however no findings to suggest acute cholecystitis. Trace right pleural effusion. Signed: Isis Chamberlain Verified Date/Time: 12/28/2019 23:22:17 [facility] [id number] 20:54:00 Test Item Value Reference Range Interpretation Comments POC-GLUCOSE METER 304 mg/dL 70-110 H : Notified RN/MD: ([facility]) (test code = TESTED AT [place] [address] 1538) [facility], [id number]: Almond Paste Mixer/Techni stephanie ID = [id number] for RYLAND MITCHELLY POCT-GLUCOSE [id number] 16:52:00 Test Item Value Reference Range Interpretation Comments POC-GLUCOSE METER 284 mg/dL 70-110 H : TESTED A T [place] [address] (BEAKER) (test code [facility], = 1538) [address]: Almond Paste Mixer/Techni stephanie ID = [id number] for TAHIRA LAINEZ (CELLAVISION MANUAL DIFF)2019-12-28 15:12:00 Test Item Value Reference Range Interpretation Comments NEUTROPHILS - REL 88 % (CELLAVISION)(BEAKER) (test code = 2816) LYMPHOCYTES - REL 2 % (CELLAVISION)(BEAKER) (test code = 2817) MONOCYTES - REL 2 % (CELLAVISION)(BEAKER) (test code = 2818) EOSINOPHILS - REL 2 % (CELLAVISION)(BEAKER) (test code = 2819) METAMYELOCYTES - REL 2 % 0-0 H (CELLAVISION)(BEAKER) (test code = 2821) MYELOCYTES - REL 2 % 0-0 H (CELLAVISION)(BEAKER) (test code = 2822) BANDS - REL (CELLAVISION)(BEAKER) 2 % 0-10 (test code = 2826) NEUTROPHILS - ABS 10.47 K/ul 1.56-6.13 H (CELLAVISION)(BEAKER) (test code = 2830) LYMPHOCYTES - ABS 0.24 K/ul 1.18-3.74 L (CELLAVISION)(BEAKER) (test code = 2831) MONOCYTES - ABS 0.24 K/uL 0.24-0.36 (CELLAVISION)(BEAKER) (test code = 2832) EOSINOPHILS - ABS 0.24 K/uL 0.04-0.36 (CELLAVISION)(BEAKER) (test code = 2834) METAMYELOCYTES - ABS 0.24 K/uL 0.00-0.00 H (CELLAVISION)(BEAKER) (test code = 2836) MYELOCYTES-ABS 0.24 K/uL 0.00-0.00 H (CELLAVISION)(BEAKER) (test code = 2837) BANDS - ABS (CELLAVISION)(BEAKER) 0.24 K/uL 0.00-0.80 (test code = 2840) TOTAL COUNTED (BEAKER) (test code 100 = 1351) MANUAL NRBC PER 100 CELLS (BEAKER) 1 /100 WBC 0-0 H (test code = 1353) WBC MORPHOLOGY (BEAKER) (test code Normal = 487) PLT MORPHOLOGY (BEAKER) (test code Normal = 486) POLYCHROMATOPHILLIC RBCS(BEAKER) 1+ few (test code = 478) ANISOCYTOSIS (BEAKER) (test code = 1+ few 961) POIKILOCYTES (BEAKER) (test code = 1+ few 966) SPHEROCYTES (BEAKER) (test code = 1+ few 768) ELLIPTOCYTES (BEAKER) (test code = 1+ few 962) WILLIS CELLS (BEAKER) (test code = 1+ few 474) ARTIFACT (CELLAVISION)(BEAKER) Present (test code = 3432) PLATELET CONCENTRATION Adequate (CELLAVISION)(BEAKER) (test code = 3438) Almond Paste Mixer ID - lorraine [place] comments: Slide comments:CBC W/PLT COUNT & AUTO [id number] 15:01:00 Test Item Value Reference Range Interpretation Comments WHITE BLOOD CELL COUNT (BEAKER) 11.9 K/ L 3.5-10.5 H (test code = 775) RED BLOOD CELL COUNT (BEAKER) 4.05 M/ L 3.93-5.22 (test code = 761) HEMOGLOBIN (BEAKER) (test code = 10.6 GM/DL 11.2-15.7 L 410) HEMATOCRIT (BEAKER) (test code = 36.4 % 34.1-44.9 411) MEAN CORPUSCULAR VOLUME (BEAKER) 89.9 fL 79.4-94.8 (test code = 753) MEAN CORPUSCULAR HEMOGLOBIN 26.2 pg 25.6-32.2 (BEAKER) (test code = 751) MEAN CORPUSCULAR HEMOGLOBIN CONC 29.1 GM/DL 32.2-35.5 L (BEAKER) (test code = 752) RED CELL DISTRIBUTION WIDTH 17.5 % 11.7-14.4 H (BEAKER) (test code = 412) PLATELET COUNT (BEAKER) (test 221 K/CU MM 150-450 code = 756) MEAN PLATELET VOLUME (BEAKER) 9.3 fL 9.4-12.3 L (test code = 754) NUCLEATED RED BLOOD CELLS 0 /100 WBC 0-0 (BEAKER) (test code = 413) ECG 12 [id number] 14:05:40Interface, External Ris In - 12/28/2019 2:05 PM CDTVentricular Rate 74 BPMAtrial Rate 250 BPMQRS Duration 76 msQ-T Interval 414 msQTC Calculation(Bazett) 459 msR [place] 107 degreesT [place] -5 degreesAtrial fibrillationRightward axisPoor R wave progressionNonspecific T wave abnormalityAbnormal ECGWhen compared with ECG of 01-APR-1995 16:16,Atrial fibrillation has replaced Sinus rhythmQRS voltage has decreasedPoor R wave progression now seenInverted T waves have replaced nonspecific T wave abnormality in IIINonspecific T wave abnormality now evident in Anterolateral leadsConfirmed by MD JENNIFER, DOMENICA ([id number]) on 12/28/2019 2:05:35 [facility] (Asymptomatic ONLY)2019-12-28 12:48:00 Test Item Value Reference Range Interpretation Comments SARS-COV2/RT-PCR Negative Not Detected, (test code = Negative, See 10033-3) external report for linked test SARS-COV-2 [facility] PERFORMING LAB (test code = 02256-3) MILADIS (test code = Negative result for this MILADIS) test determines that SARS-CoV-2 RNA was not present in the specimen above the Limit of Detection (LOD). However, Negative results do not preclude SARS-CoV-2 infection and should not be used as the sole basis for treatment or patient management decisions. Negative results must be combined with clinical observations, patient history, and epidemiological information. A false negative result may occur if a specimen is improperly collected, transported or handled. A false negative result should be considered if patient's recent exposures or clinical presentation indicate that COVID-19 (SARS-CoV-2) is likely and diagnostic tests for other causes of illness are negative. Re-testing should be considered in cases of suspected [...] Food and Drug Administration (FDA) cleared or approved. This is a modified version of an approved [...] of the Act. Fact Sheet for Healthcare Providers:https://www.Axiata.com/sites/default/f nicole/product/documents/F act_Sheet_HC_Providers_L hft_EMDU-HmK-1.pdf Fact Sheet for Healthcare Patients:https://www.Vudu.com/sites/default/fi les/product/documents/Fa ct_Sheet_Patients_Lyra_S ARS-CoV-2.pdf Performing Laboratory:[facility] [place] [address] [facility] CenterARS-[facility]OV2/[facility]-PCR ([facility])2019-12-28 12:48:00 Test Item Value Reference Range Interpretation Comments SARS-COV2/RT-PCR (test Negative Not Detected, Negative, code = 8088110) See external report for linked test SARS-COV-2 PERFORMING LAB [facility] (test code = 6748639) Negative result for this test determines that SARS-CoV-2 RNA was not present in the specimen above the Limit of Detection (LOD). However, Negative results do not preclude SARS-CoV-2 infection and should not be used as the sole basis for treatment or patient management decisions. Negative results mustbe combined with clinical observations, patient history, and epidemiological information. A false negative result may occur if a specimen is improperly collected, transported or handled. A false negative result should be considered if patient's recent exposures or clinical presentation indicate that COVID-19 (SARS-CoV-2) is likely and diagnostic tests for other causes of illness are negative. Re-testing should be considered in cases of suspected false negatives.The limit of detection for this assay is 800 copies/mL.This SARS CoV-2 test is a real-time RT-PCR test intended for the qualitative detection of nucleic acid from SARS-CoV-2 in a nasopharyngeal swab specimen collected from individuals susp ected of COVID-19 by their healthcare provider.This test has not been Food and Drug Administration (FDA) cleared or approved. This is a modified version of an approved [...] is revoked under Section 564(g) of the Act.Fact Sheet for Healthcare Providers:https://www.Unii/sites/default/files/product/documents/Fact_Shenadeen morrisong_EA_Dgzkceufi_Obil_VLWZ-ZdK-9.pdfFact Sheet for Healthcare Patients:https://www.Unii/sites/default/files/product/ documents/Mpwm_Wrspn_Aenxrqcz_Tzlj_IXGJ-VeX-8.pdfPerforming Laboratory:[facility], [place] [address]U Echo W/Doppler(CW/PW/Color)2019-12-28 11:49:05Ejection FractionSLEH ECHO HEARTLAB MKCKESSON CPACSInterface, External Ris In - 12/28/2019 11:49 AM CDTTransthoracic Echocardiography Report (TTE) Demographics Patient Name AILYN COBIAN Date of Study 12/28/2019 Gender Female Visit Number [id number] Race Room Number 930Number Date of 1955 Referring Physician Betty Mills Age 64 year(s) [employer] Fitter Libby Green CS Interpreting Marco Antonio Escobar MD Physician Procedure Type of Study TTE procedure:2DECHO W DOPPLER(CW/PW/COLOR) (Routine) Indications:Suspected hypertensive heart failure.Clinical HistoryHGB 10.2HCT 35.2 %CAD, CABG (2010?), CHF, A-FIB, HTN, DM 2, ASTHMA, HX CVA, SEVERE PHTNContrast Medium: Definity.Height: 60 inches Weight: 90.72 kg (200 lbs) BSA: 1.87 m^2 BMI: 39.06 kg/m^2HR: 86 bpm BP: 128/65 mmHg Summary The left ventricle is chamber size (by vol index) is normal (female- LVED vol - 29-61ml/m2). All of the LV segments are mildly hypokinetic . Septal motion is abnormal,likely related to prior cardiac surgery . LVEF by Mason's method of disk assessment is mildly reduced (40-44%) . LV diastolic function is indeterminate. Global RV systolic function is depressed . RV chamber size is mildly enlarged . Txiu-ap-fmbgpblw mitral regurgitation. Moderate tricuspid regurgitation. Estimated peak systolic PA pressure is 70-75 mmHg . Signature Findings Left Ventricle The left ventricle is chamber size (by vol index) is normal (female - LVED vol - 29-61ml/m2). Normal LV wall thickness. All ofthe LV segments are mildly hypokinetic . Septal motion is abnormal, likely related to prior cardiac surgery . LVEF by Mason's method of disk assessment is mildly reduced (40-44%) . LV diastolic function is indeterminate. Left Atrium LA size is moderately enlarged (42-48 ml/m2) . Right Ventricle Global RV systolic function is depressed . RV chamber size is mildly enlarged . Right Atrium RA size is mildly dilated. Aortic Valve Normal AoV structure. Mitral Valve Mild MV leaflet thickening. Ypgl-rs-vrwnyyox mitral regurgitation. Tricuspid Valve Moderate tricuspid regurgitation. Estimated peak systolic PA pressure is 70-75 mmHg . Pulmonic Valve A trace of pulmonary regurgitation. Aorta Aortic root size (SInus of Valsalva diameter)is normal . Pericardium No pericardial effusion is visualized. IVC/SVC/PA/PV/Pleural The estimated RA pressure by IVC dynamics 11-15mmHg . Grazyna mbers/Structures Left Atrium LA Dimension: 5.16 cm LA [...] E/A Ratio: 4.26 Peak Gradient: 6.56 mmHg Deceleration Time: 1 67.5 msec MV Skinny. Peak: Aortic Valve Peak Velocity: 1.06 m/s Mean Velocity: 0.83m/s Peak Gradient: 4.5 mmHg Mean Gradient: 2.87 mmHg AV Area (continuity): 2.09 cm^2 AV VTI: 19.26 cm AV DVI: 0.83 LVOT Peak Velocity: 0.76 m/s Peak Gradient: 2.3 mmHg Mean Velocity: 0.54 m/s Mean Gradient: 1.34 mmHg LVOT Diameter: 1.79 cm LVOT VTI: 15.99 cm LVOT Area: 2.52 cm^2 LVOT SV:40.22 ml LVOT CO: 3.46 l/min LVOT CI: 1.85 l/min/m^2 Tricuspid Valve TR Velocity: 3.74 m/s TR Gradient: 55.85 mmHgPorterville Developmental CenterCT-GLUCOSE [id number] 11:48:00 Test Item Value Reference Range Interpretation Comments POC-GLUCOSE METER 339 mg/dL 70-110 H : TESTED A T [facility] 67[facility] (test code [facility], = 1538) [address]: Almond Paste Mixer/Techni stephanie ID = [id number] for TAHIRA LAINEZ Venous doppler leg, [id number] 09:19:00Ejection FractionSLE ECHO HEARTLAB MKCKESSON [facility] Left Impression1. There is no deep venous obstruction in the common femoral, profundafemoral, femoral, popliteal, posterior tibial or peroneal veins.2. There is no superficial venous obstruction in the great saphenous vein. Conclusions Summary Venous duplex imaging and compression of the left lower extremity were performed. The veins were adequately visualized. The left venous system was patent and compressible with no evidence of thrombus. The venous Doppler waveforms were phasic with respiration . Signature Velocities are measured in cm/s ; Diameters are measured in cm Interface, External Ris In - 12/28/2019 9:19 AM CDTPV LAB - Lower Extremities DVT Study Demographics Patient Name AILYN COBIAN Date of Study 12/28/2019 Age 64 Visit Number [id number] Gender Female Accession Number [id number] Date of 1955 Referring Betty M Room Number 930 Physician Zack Formstone Fitter Cuco Best Interpreting Meri Celestin S Physician ProcedureType of Study: Veins: Lower Extremities DVT Study, VENOUS DOPPLER LEG, LEFT. Indications for Study:Left Leg Pain.Patient Status:Routine.Study Location:Vascular Lab.Technical Quality:Adequate visualization.Risk FactorsHistory of Disease+ +----+---- +!Diagnosis !Date!Comments !+ +----+ +!Hi story/Risk ! !Morbid obesity, CHF, A-Fib, HTN, DM2, CAD, S/P !!Factors: ! !CABG, Dyspnea !+ +----+ +ImpressionsLeft Impression1. There is no deep venous obstruction in the commonfemoral, profundafemoral, femoral, popliteal, posterior tibial or peroneal veins.2. There is no superficial venous obstruction in the great saphenous vein. Conclusions Summary Venous duplex imaging and compression of the left lower extremity were performed. The veins were adequately visualized. The left venous system was patent and compressible with no evidence of thrombus. The venous Doppler waveforms were phasic with respiration . Signature Velocities are measured in cm/s ;Diameters are measured in [facility] HospitalPO[facility] [id number] 08:47:00 Test Item Value Reference Range Interpretation Comments POC-GLUCOSE METER 304 mg/dL 70-110 H : TESTED Henry Morrison [facility] 67[address] ([place]) (test code [facility], = 1538) [address]: Almond Paste Mixer/Techni stephanie ID = [id number] for TAHIRA LAINEZ Hemoglobin [id number] 08:04:00 Test Item Value Reference Range Interpretation Comments Hemoglobin A1C (test code = 4548-4) 9.9 % 4.3-6.1 H Lab Interpretation (test code = Abnormal 44663-6) [facility] Hospital[facility]MO[facility] [id number] 08:04:00 Test Item Value Reference Range Interpretation Comments HEMOGLOBIN A1C (BEAKER) (test code = 9.9 % 4.3-6.1 H 368) LIPID [id number] 07:05:00 Test Item Value Reference Range Interpretation Comments TRIGLYCERIDES (BEAKER) 109 mg/dL (test code = 540) CHOLESTEROL (BEAKER) 92 mg/dL (test code = 631) HDL CHOLESTEROL (BEAKER) < mg/dL (test code = 976) LDL CHOLESTEROL > mg/dL Unable to ca lculate CALCULATED (BEAKER) (test code = 633) Triglyceride Reference Range: Low Risk <150 Borderline 150-199 High Risk 200-499 Very High Risk >=500Cholesterol Reference Range: Low Risk <200 Borderline 200-239 High Risk >240HDL Cholesterol Reference Range: Low Risk >=60 High Risk <40LDL Cholesterol Reference Range: Optimal <100 Near Optimal 100-129 Borderline 130-159 High 160-189 Very High >=190 Almond Paste Mixer ID Quincy HENLEY [id number] 07:02:00 Test Item Value Reference Range Interpretation Comments PHOSPHORUS (BEAKER) (test code = 2.5 mg/dL 2.3-4.7 604) Almond Paste Mixer ID Quincy HENLEY [id number] 07:02:00 Test Item Value Reference Range Interpretation Comments MAGNESIUM (BEAKER) (test code = 1.9 mg/dL 1.6-2.6 627) Almond Paste Mixer ID Quincy LORY FBASIC METABOLIC [id number] 07:02:00 Test Item Value Reference Range Interpretation Comments SODIUM (BEAKER) 130 meq/L 136-145 L (test code = 381) POTASSIUM (BEAKER) 4.2 meq/L 3.5-5.1 (test code = 379) CHLORIDE (BEAKER) 96 meq/L 98-107 L (test code = 382) CO2 (BEAKER) (test 29 meq/L 22-29 code = 355) BLOOD UREA NITROGEN 24 mg/dL 7-21 H (BEAKER) (test code = 354) CREATININE (BEAKER) 1.14 mg/dL 0.57-1.25 (test code = 358) GLUCOSE RANDOM 323 mg/dL 70-105 H (BEAKER) (test code = 652) CALCIUM (BEAKER) 8.0 mg/dL 8.4-10.2 L (test code = 697) EGFR (BEAKER) (test 48 mL/min/1.73 ESTIMA JOSE GFR IS code = 1092) sq m NOT ACCURATE CREATININE CLEARANCE IN PREDICTING GLOMERULAR FILTRATION RATE . ESTIMATED GFR I S NOT APPLICABLE FOR DIALYSIS PATIEN TS. Almond Paste Mixer OLIVER HENLEY EPATIC FUNCTION [id number] 07:02:00 Test Item Value Reference Range Interpretation Comments TOTAL PROTEIN (BEAKER) (test code = 6.6 gm/dL 6.0-8.3 770) ALBUMIN (BEAKER) (test code = 1145) 2.6 g/dL 3.5-5.0 L BILIRUBIN TOTAL (BEAKER) (test code 1.1 mg/dL 0.2-1.2 = 377) BILIRUBIN DIRECT (BEAKER) (test 0.9 mg/dL 0.1-0.5 H code = 706) ALKALINE PHOSPHATASE (BEAKER) (test 183 U/L 40-150 H code = 346) AST (SGOT) (BEAKER) (test code = 809 U/L 5-34 H 353) ALT (SGPT) (BEAKER) (test code = 607 U/L 6-55 H 347) Almond Paste Mixer ID Quincy HENLEY FTroponin [id number] 06:56:00 Test Item Value Reference Range Interpretation Comments Troponin I (test code = 0.02 ng/mL 0-0.03 41776-6) MILADIS (test code = MILADIS) Troponin I (TnI) levels must be interpreted in the context of the presenting symptoms and the clinical findings. Elevated TnI levels indicate myocardial damage, but are not specific for ischemic heart disease. Elevated TnI levels are seen in patients with other cardiac conditions (including myocarditis and congestive heart failure), and slight TnI elevations occur in patients with other conditions, including sepsis, renal failure, acidosis, acute neurological disease, and persistent tachyarrhythmia.Opera tor ID Quincy HENLEY F Lab Interpretation (test Normal code = 19109-9) [facility] [id number] 06:56:00 Test Item Value Reference Range Interpretation Comments TROPONIN I (BEAKER) (test code = 0.02 ng/mL 0.00-0.03 397) Troponin I (TnI) levels must be interpreted in the context of the presenting symptoms and the clinical findings. Elevated TnI levels indicate myocardial damage, but are not specific for ischemic heart disease. Elevated TnI levels are seen in patients with other cardiac conditions (including myocarditis and congestive heart failure), and slight TnI elevations occur in patients with other conditions, including sepsis, renal failure, acidosis, acute neurological disease, and persistent tachyarrhythmia.Almond Paste Mixer ID - LORY Cabralmonia 2019-12-28 06:40:00 Test Item Value Reference Range Interpretation Comments Ammonia (test code = 40 18- 72 mol/L 44685-2) MILADIS (test code = MILADIS) Almond Paste Mixer ID - LORY F Lab Interpretation (test Normal code = 22137-6) [facility] HospitalAMMONIA2020-10-05 06:40:00 Test Item Value Reference Range Interpretation Comments AMMONIA (BEAKER) (test code = 348) 40 mol/L 18-72 Almond Paste Mixer ID - LORY FCreatinine, random [id number] 04:54:00 Test Item Value Reference Range Interpretation Comments Creatinine, Ur 80.7 mg/dL (test code = 2161-8) MILADIS (test code = Reference Range: No MILADIS) NormalsOperator ID - DB [facility] Centerodium, random [id number] 04:54:00 Test Item Value Reference Range Interpretation Comments Sodium Urine (test 42 meq/L code = 2955-3) MILADIS (test code = Reference Range: No MILADIS) NormalsOperator ID - DB [facility] HospitalUrea Nitrogen, random [id number] 04:54:00 Test Item Value Reference Range Interpretation Comments Urea Nitrogen, Ur 882 mg/dL (test code = 3095-7) MILADIS (test code = Reference Range: No MILADIS) NormalsOperator ID - DB [facility] HospitalCREATININE, RANDOM [id number] 04:54:00 Test Item Value Reference Range Interpretation Comments CREATININE URINE (BEAKER) (test 80.7 mg/dL code = 375) Reference Range: No NormalsOperator ID - DBSODIUM, RANDOM [id number] 04:54:00 Test Item Value Reference Range Interpretation Comments SODIUM URINE (BEAKER) (test code = 42 meq/L 243) Reference Range: No NormalsOperator ID - DBUREA NITROGEN, RANDOM [id number] 04:54:00 Test Item Value Reference Range Interpretation Comments UREA NITROGEN URINE (BEAKER) (test 882 mg/dL code = 538) Reference Range: No NormalsOperator ID - DBRAD, CHEST, 1 VIEW, NON DEPT 2019-12-28 01:38:00Reason for exam:->dyspneaShould this be performed at the bedside?->YesFINAL REPORT INDICATION: dyspnea COMPARISON: None TECHNIQUE: Single frontal view of the chest. IMPRESSION: Lungs and pleura: Pulmonary venous congestion with hazy borders compatible with interstitial edema. An atypical pneumonitis could have a similar appearance. No airway consolidation or sizable effusion. No pneumothorax.Heart and mediastinum: Heart is moderately enlarged. Unremarkable mediastinal contours.Osseous structures: No acute abnormality. Prior median sternotomy.Other: None. Signed: Shazia Gilbert [facility] Verified Date/Time: 12/28/2019 01:38:53 POCT-GLUCOSE [id number] 21:27:00 Test Item Value Reference Range Interpretation Comments POC-GLUCOSE METER 351 mg/dL 70-110 H : TESTED A T [facility] 6720 (BEAKER) (test code = [facility]van [facility], 1538) [address]: Almond Paste Mixer/Techni stephanie ID = [id number] for BAILEE HUYNH TTE CBC W/PLT COUNT & AUTO [id number] 19:45:00 Test Item Value Reference Range Interpretation Comments WHITE BLOOD CELL COUNT (BEAKER) 12.4 K/ L 3.5-10.5 H (test code = 775) RED BLOOD CELL COUNT (BEAKER) 3.90 M/ L 3.93-5.22 L (test code = 761) HEMOGLOBIN (BEAKER) (test code = 10.2 GM/DL 11.2-15.7 L 410) HEMATOCRIT (BEAKER) (test code = 35.2 % 34.1-44.9 411) MEAN CORPUSCULAR VOLUME (BEAKER) 90.3 fL 79.4-94.8 (test code = 753) MEAN CORPUSCULAR HEMOGLOBIN 26.2 pg 25.6-32.2 (BEAKER) (test code = 751) MEAN CORPUSCULAR HEMOGLOBIN CONC 29.0 GM/DL 32.2-35.5 L (BEAKER) (test code = 752) RED CELL DISTRIBUTION WIDTH 17.4 % 11.7-14.4 H (BEAKER) (test code = 412) PLATELET COUNT (BEAKER) (test 219 K/CU MM 150-450 code = 756) MEAN PLATELET VOLUME (BEAKER) 9.5 fL 9.4-12.3 (test code = 754) NUCLEATED RED BLOOD CELLS 0 /100 WBC 0-0 (BEAKER) (test code = 413) NEUTROPHILS RELATIVE PERCENT 77 % (BEAKER) (test code = 429) LYMPHOCYTES RELATIVE PERCENT 7 % (BEAKER) (test code = 430) MONOCYTES RELATIVE PERCENT 6 % (BEAKER) (test code = 431) EOSINOPHILS RELATIVE PERCENT 5 % (BEAKER) (test code = 432) BASOPHILS RELATIVE PERCENT 1 % (BEAKER) (test code = 437) NEUTROPHILS ABSOLUTE COUNT 9.49 K/ L 1.56-6.13 H (BEAKER) (test code = 670) LYMPHOCYTES ABSOLUTE COUNT 0.84 K/ L 1.18-3.74 L (BEAKER) (test code = 414) MONOCYTES ABSOLUTE COUNT (BEAKER) 0.78 K/ L 0.24-0.36 H (test code = 415) EOSINOPHILS ABSOLUTE COUNT 0.58 K/ L 0.04-0.36 H (BEAKER) (test code = 416) BASOPHILS ABSOLUTE COUNT (BEAKER) 0.11 K/ L 0.01-0.08 H (test code = 417) IMMATURE GRANULOCYTES-RELATIVE 5 % 0-1 H PERCENT (BEAKER) (test code = 2801) BASIC METABOLIC [id number] 19:30:00 Test Item Value Reference Range Interpretation Comments SODIUM (BEAKER) 133 meq/L 136-145 L (test code = 381) POTASSIUM (BEAKER) 4.0 meq/L 3.5-5.1 (test code = 379) CHLORIDE (BEAKER) 96 meq/L 98-107 L (test code = 382) CO2 (BEAKER) (test 32 meq/L 22-29 H code = 355) BLOOD UREA NITROGEN 31 mg/dL 7-21 H (BEAKER) (test code = 354) CREATININE (BEAKER) 1.21 mg/dL 0.57-1.25 (test code = 358) GLUCOSE RANDOM 293 mg/dL 70-105 H (BEAKER) (test code = 652) CALCIUM (BEAKER) 7.9 mg/dL 8.4-10.2 L (test code = 697) EGFR (BEAKER) (test 45 mL/min/1.73 ESTIMA JOSE GFR IS code = 1092) sq m NOT ACCURATE CREATININE CLEARANCE IN PREDICTING GLOMERULAR FILTRATION RATE . ESTIMATED GFR I S NOT APPLICABLE FOR DIALYSIS PATIEN TS. Almond Paste Mixer ID - SHARLAROPONIN [id number] 19:25:00 Test Item Value Reference Range Interpretation Comments TROPONIN I (BEAKER) (test code = 397) < ng/mL 0.00-0.03 Troponin I (TnI) levels must be interpreted in the context of the presenting symptoms and the clinical findings. Elevated TnI levels indicate myocardial damage, but are not specific for ischemic heart disease. Elevated TnI levels are seen in patients with other cardiac conditions (including myocarditis and congestive heart failure), and slight TnI elevations occur in patients with other conditions, including sepsis, renal failure, acidosis, acute neurological disease, and persistent tachyarrhythmia.Almond Paste Mixer ID - GREGGB-type Natriuretic Factor (BNP)2019-12-27 19:24:00 Test Item Value Reference Range Interpretation Comments BNP (test code = 72075-0) 291 pg/mL 0-100 H MILADIS (test code = MILADIS) Almond Paste Mixer ID - LIBORIO Lab Interpretation (test Abnormal code = 22010-3) [facility] NATRIURETIC FACTOR (BNP)2019-12-27 19:24:00 Test Item Value Reference Range Interpretation Comments B-TYPE NATRIURETIC PEPTIDE (BEAKER) 291 pg/mL 0-100 H (test code = 700) [employer]mond [employer]er ID - GREGGHEPATIC FUNCTION [id number] 19:20:00 Test Item Value Reference Range Interpretation Comments TOTAL PROTEIN (BEAKER) (test code = 6.3 gm/dL 6.0-8.3 770) ALBUMIN (BEAKER) (test code = 1145) 2.5 g/dL 3.5-5.0 L BILIRUBIN TOTAL (BEAKER) (test code 1.3 mg/dL 0.2-1.2 H = 377) BILIRUBIN DIRECT (BEAKER) (test 1.1 mg/dL 0.1-0.5 H code = 706) ALKALINE PHOSPHATASE (BEAKER) (test 164 U/L 40-150 H code = 346) AST (SGOT) (BEAKER) (test code = 952 U/L 5-34 H 353) ALT (SGPT) (BEAKER) (test code = 651 U/L 6-55 H 347) [employer]mond [employer]er ID - ROSIANGPOCT-GLUCOSE [id number] 18:34:00 Test Item Value Reference Range Interpretation Comments POC-GLUCOSE METER 300 mg/dL 70-110 H : TESTED A T [facility] 6720 (BEAKER) (test code = [place], 1538) [address]: Almond Paste Mixer/Techni stephanie ID = [id number] for RACHNA RODRIGUEZ (Verónica)SANJAY GLUCOSE BEDSIDE [id number] 09:56:00 Test Item Value Reference Range Interpretation Comments GLUCOSE BEDSIDE TESTING (test code 225 mg/dL 70-110 H = GLUBED) GLUCOSE BEDSIDE [id number] 23:00:00 Test Item Value Reference Range Interpretation Comments GLUCOSE BEDSIDE TESTING (test code 301 mg/dL 70-110 H = GLUBED) GLUCOSE BEDSIDE [id number] 16:43:00 Test Item Value Reference Range Interpretation Comments GLUCOSE BEDSIDE TESTING (test code 243 mg/dL 70-110 H = GLUBED) GLUCOSE BEDSIDE [id number] 12:30:00 Test Item Value Reference Range Interpretation Comments GLUCOSE BEDSIDE TESTING (test code 195 mg/dL 70-110 H = GLUBED) BASIC METABOLIC [id number] 10:40:00 Test Item Value Reference Range Interpretation [...] 8.2 MG/DL 8.5-10.1 L CA) GLUCOSE BEDSIDE [id number] 08:59:00 Test Item Value Reference Range Interpretation Comments GLUCOSE BEDSIDE TESTING (test code 119 mg/dL 70-110 H = GLUBED) GLUCOSE BEDSIDE [id number] 21:36:00 Test Item Value Reference Range Interpretation Comments GLUCOSE BEDSIDE TESTING (test code 146 mg/dL 70-110 H = GLUBED) GLUCOSE BEDSIDE [id number] 16:11:00 Test Item Value Reference Range Interpretation Comments GLUCOSE BEDSIDE TESTING (test code 191 mg/dL 70-110 H = GLUBED) - XR CHEST 1 [id number] 15:39:00 Name: AILYN COBIAN [place] : 1955 Age/S: 64 / F [address] Unit #: [id number] Loc: [place] [address] Phys: Raleigh Roy MD Acct: [id number] Dis Date: Status: ADM IN PHONE #: [phone] Exam Date: 11/09/2019 1515 FAX #: Reason: FALL EXAMS: CPT: [id number] XR CHEST 1 V 31354 Fluoro Time: DAP (Gy m2): Air Kerma [...] PAGE 1 Signed Report Name: AILYN COBIAN [place] : 1955 Age/S: 64 / F [address] Unit #: [id number] Loc: [place] [address] Phys: Raleigh Roy MD Acct: [id number] Dis Date: Status: ADM IN PHONE #: [phone] Exam Date: 11/09/2019 1515 FAX #: Reason: FALL EXAMS: CPT: [id number] XR CHEST 1 V 89631 Fluoro Time: DAP (Gy m2): Air Kerma (mGy): <Continued> Technologist: Mary Ann Cortes,RT(R)(CT); Jodi Baker, RT(R) Trnscb Date/Time: 11/09/2019 (1539) [email or web address] Orig Print D/T: S: 11/09/2019 (7521) PAGE 2 Signed Report- XR HIP W/PEL UNI 2+V [id number] 15:34:00 Name: AILYN COBIAN [facility] : 1955 Age/S: 64 / F [id number] [place] [address] Unit #: [id number] Loc: [place] [address] Phys: Raleigh Roy MD Acct: [id number] Dis Date: Status: ADM IN PHONE #: [phone] Exam Date: 11/09/2019 1526 FAX #: Reason: HIP PAIN EXAMS: CPT: [id number] XR HIP W/PEL UNI 2+[place] [address] Fluoro Time: DAP (Gy m2): Air Kerma [...] PAGE 1 Signed Report Name: AILYN COBIAN [facility] : 1955 Age/S: 64 / F [address] Unit #: [id number] Loc: [place] [address] Phys: Raleigh Roy Acct: [id number] Dis Date: Status: ADM IN PHONE #: [phone] Exam Date: 11/09/2019 1526 FAX #: Reason: HIP PAIN EXAMS: CPT: [id number] XR HIP W/PEL UNI 2+[place] [address] Fluoro Time: DAP (Gy m2): Air Kerma (mGy): <Continued> Technologist: Mary Ann Cortes, RT(R)(CT); Jodi Baker, RT(R) Trnmsb Date/Time: 11/09/2019 (1534) GregAH26 Orig Print D/T: S: 11/09/2019 (0471) PAGE 2 Signed Report- XR FACIAL BONES <[id number] 15:30:00 Name: AILYN COBIAN [place] : 1955 Age/S: 64 / F [address] [facility] Unit #: [id number] Loc: [place] [address] Phys: Raleigh Roy MD Acct: [id number] Dis Date: Status: ADM IN PHONE #: [phone] Exam Date: 11/09/2019 1520 FAX #: Reason: FALL EXAMS: CPT: [id number] XR FACIAL BONES <3V 51273 Fluoro Time: DAP (Gy m2): Air Kerma [...] [place] : 1955 Age/S: 64 / F [address] Unit #: [id number] Loc: [place] [address] Phys: Raleigh Roy MD Acct: [id number] Dis Date: Status: ADM IN PHONE #: [phone] Exam Date: 11/09/2019 1520 FAX #: Reason: FALL EXAMS: CPT: [id number] XR FACIAL BONES <3V 39797 Fluoro Time: DAP (Gy m2): Air Kerma (mGy): <Continued> Technologist: Mary Ann Cortes, RT(R)(CT); Jodi Baker RT(R) Trnscb Date/Time: 11/09/2019 (1530) GregAH26 PAGE 2 Signed ReportGLUCOSE BEDSIDE [id number] 12:06:00 Test Item Value Reference Range Interpretation Comments GLUCOSE BEDSIDE TESTING (test code 252 mg/dL 70-110 H = GLUBED) BASIC METABOLIC [id number] 07:58:00 Test Item Value Reference Range Interpretation [...] CA) 7.8 MG/DL 8.5-10.1 L CBC W/AUTO [id number] 07:37:00 Test Item Value Reference Range Interpretation [...] NO DIFF/SCN CRITERIA = MDIFF) GLUCOSE BEDSIDE [id number] 01:26:00 Test Item Value Reference Range Interpretation Comments GLUCOSE BEDSIDE TESTING (test code 281 mg/dL 70-110 H = GLUBED) GLUCOSE BEDSIDE [id number] 19:27:00 Test Item Value Reference Range Interpretation Comments GLUCOSE BEDSIDE TESTING (test code 233 mg/dL 70-110 H = GLUBED) GLUCOSE BEDSIDE [id number] 17:43:00 Test Item Value Reference Range Interpretation Comments GLUCOSE BEDSIDE TESTING (test code 245 mg/dL 70-110 H = GLUBED) VANCOMYCIN [id number] 10:58:00 Test Item Value Reference Range Interpretation Comments VANCOMYCIN TROUGH (test code = 17.9 mcG/ML 10-20 N VANCT) GLUCOSE BEDSIDE [id number] 08:14:00 Test Item Value Reference Range Interpretation Comments GLUCOSE BEDSIDE TESTING (test code 147 mg/dL 70-110 H = GLUBED) BASIC METABOLIC [id number] 04:07:00 Test Item Value Reference Range Interpretation [...] CA) 8.2 MG/DL 8.5-10.1 L CBC W/AUTO [id number] 03:46:00 Test Item Value Reference Range Interpretation [...] NO DIFF/SCN CRITERIA = MDIFF) GLUCOSE BEDSIDE [id number] 21:11:00 Test Item Value Reference Range Interpretation Comments GLUCOSE BEDSIDE TESTING (test code 195 mg/dL 70-110 H = GLUBED) VANCOMYCIN [id number] 20:29:00 Test Item Value Reference Range Interpretation Comments VANCOMYCIN TROUGH (test code = 22.6 mcG/ML 10-20 H VANCT) - US RETRO [id number] 18:55:00 Name: AILYN COBIAN [place] : 1955 Age/S: 64 / F [address] Unit #: [id number] Loc: [place] [address] Phys: Giorgi Mejia DO Acct: [id number] Dis Date: Status: ADM IN PHONE #: [phone] Exam Date: 11/07/20191809 FAX #: Reason: GI on CKD vs CKD 3 EXAMS: CPT: [id number] [facility] [address] Examination: Ultrasound retroperitoneum limited Location code: H60 [...] signed by: Kevin Duran M.D. CC: Raleigh oRy MD; Giorgi Mejia DO Technologist: Fanny Eid Trnscb Date/Time: 11/07/2019 (1854) GregVR5 PAGE 1 Signed Report Name: AILYN COBIAN [place] : 1955 Age/S: 64 / F [address] Unit #: [id number] Loc: [place] [address] Phys: Giorgi Mejia DO Acct: [id number] Dis Date: Status: ADM IN PHONE #: [phone] ExamDate: 11/07/20191809 FAX #: Reason: GI on CKD vs CKD 3 EXAMS: CPT: [id number] [facility] [address] <Continued> Orig Print D/T:S: 11/07/2019 (9388) Probe: PAGE2 Signed ReportGLUCOSE BEDSIDE [id number] 17:04:00 Test Item Value Reference Range Interpretation Comments GLUCOSE BEDSIDE TESTING (test code 174 mg/dL 70-110 H = GLUBED) PARATHYROID HORMONE [id number] 14:11:00 Test Item Value Reference Range Interpretation Comments PARATHYROID HORMONE INTACT (test 324.5 PG/ML 26-72 H code = PARAI) GLUCOSE BEDSIDE [id number] 12:20:00 Test Item Value Reference Range Interpretation Comments GLUCOSE BEDSIDE TESTING (test code 175 mg/dL 70-110 H = GLUBED) GLUCOSE BEDSIDE [id number] 08:16:00 Test Item Value Reference Range Interpretation Comments GLUCOSE BEDSIDE TESTING (test code 134 mg/dL 70-110 H = GLUBED) BASIC METABOLIC [id number] 06:31:00 Test Item Value Reference Range Interpretation [...] CA) 8.5 MG/DL 8.5-10.1 N CBC W/AUTO [id number] 06:14:00 Test Item Value Reference Range Interpretation [...] NO DIFF/SCN CRITERIA = MDIFF) GLUCOSE BEDSIDE [id number] 19:58:00 Test Item Value Reference Range Interpretation Comments GLUCOSE BEDSIDE TESTING (test code = 79 mg/dL 70-110 N GLUBED) BASIC METABOLIC [id number] 19:14:00 Test Item Value Reference Range Interpretation [...] CA) 8.3 MG/DL 8.5-10.1 L CBC W/AUTO [id number] 19:06:00 Test Item Value Reference Range Interpretation [...] DIFF/SCN CRITERIA = MDIFF) COVID 19 INHOUSE [id number] 18:15:00 Test Item Value Reference Range Interpretation Comments COVID 19 INHOUSE AG NEGATIVE Negative Per [facility] facturer, (test code = negative result s should [id number]) be treated aspr esumptive and, if inconsi [...] nsistent with COVID-19. Emergent procedure? YESGLUCOSE BEDSIDE [id number] 17:32:00 Test Item Value Reference Range Interpretation Comments GLUCOSE BEDSIDE TESTING (test code 126 mg/dL 70-110 H = GLUBED) GLUCOSE BEDSIDE [id number] 12:07:00 Test Item Value Reference Range Interpretation Comments GLUCOSE BEDSIDE TESTING (test code 291 mg/dL 70-110 H = GLUBED) - XR CHEST 1 [id number] 11:47:00 Name: AILYN COBIAN : 1955 Age/S: 64 / F [address] [place] [address] Unit #: [id number] Loc: [place] [address] Phys: Raleigh Roy MD Acct: [id number] Dis Date: Status: ADM IN PHONE #: [phone] Exam Date: 10/30/2019 1140 FAX #: Reason: chest pain EXAMS: CPT: [id number] XR CHEST 1 V 77221 Fluoro Time: DAP (Gy m2): Air Kerma [...] PAGE 1 Signed Report Name: AILYN COBIAN [place] : 1955 Age/S: 64 / F [address] [place] [address] Unit #: [id number] Loc: [place] [address] Phys: Raleigh Roy MD Acct: [id number] Dis Date: Status: ADM IN PHONE #: [phone] Exam Date: 10/30/2019 1140 FAX#: Reason: chest pain EXAMS: CPT: [id number] XR CHEST 1 V 98435 Fluoro Time: DAP (Gy m2): Air Kerma (mGy): <Continued> Technologist: Kwesi Montalvo RT(R)(CT) Trnscb Date/Time: 10/30/2019 (1147) GregCB5 Orig Print D/T: S: 10/30/2019 (0907) PAGE 2 Signed ReportGLUCOSE BEDSIDE [id number] 07:48:00 Test Item Value Reference Range Interpretation Comments GLUCOSE BEDSIDE TESTING (test code 255 mg/dL 70-110 H = GLUBED) BASIC METABOLIC [id number] 06:38:00 Test Item Value Reference Range Interpretation [...] code = CA) 8.2 MG/DL 8.5-10.1 L [id number] 06:38:00 Test Item Value Reference Range Interpretation Comments MAGNESIUM (test code = MAG) 2.1 MG/DL 1.8-2.4 N CBC W/AUTO [id number] 06:25:00 Test Item Value Reference Range Interpretation [...] NO DIFF/SCN CRITERIA = MDIFF) GLUCOSE BEDSIDE [id number] 20:19:00 Test Item Value Reference Range Interpretation Comments GLUCOSE BEDSIDE TESTING (test code 115 mg/dL 70-110 H = GLUBED) GLUCOSE BEDSIDE [id number] 17:06:00 Test Item Value Reference Range Interpretation Comments GLUCOSE BEDSIDE TESTING (test code 120 mg/dL 70-110 H = GLUBED) GLUCOSE BEDSIDE [id number] 12:08:00 Test Item Value Reference Range Interpretation Comments GLUCOSE BEDSIDE TESTING (test code 211 mg/dL 70-110 H = GLUBED) [id number] 10:09:00 Test Item Value Reference Range Interpretation Comments VANCOMYCIN (test code = VANCO) 27.1 mcG/ML 5-40 N GLUCOSE BEDSIDE [id number] 08:07:00 Test Item Value Reference Range Interpretation Comments GLUCOSE BEDSIDE TESTING (test code 273 mg/dL 70-110 H = GLUBED) CBC W/AUTO [id number] 05:11:00 Test Item Value Reference Range Interpretation [...] DIFF REQUIRED NO DIFF/SCN CRITERIA SLIDE R JOSHUAW (test code = MDIFF) CONSISTA NT WITH AUTO DIFFERENTI AL. BASIC METABOLIC [id number] 05:04:00 Test Item Value Reference Range Interpretation [...] code = CA) 8.5 MG/DL 8.5-10.1 N [id number] 05:04:00 Test Item Value Reference Range Interpretation Comments MAGNESIUM (test code = MAG) 2.2 MG/DL 1.8-2.4 N CBC W/AUTO [id number] 04:43:00 Test Item Value Reference Range Interpretation [...] code = DIFF/SCN CRITERIA MDIFF) GLUCOSE BEDSIDE [id number] 20:39:00 Test Item Value Reference Range Interpretation Comments GLUCOSE BEDSIDE TESTING (test code 195 mg/dL 70-110 H = GLUBED) GLUCOSE BEDSIDE [id number] 17:53:00 Test Item Value Reference Range Interpretation Comments GLUCOSE BEDSIDE TESTING (test code 205 mg/dL 70-110 H = GLUBED) - RETRO [id number] 14:10:00 Name: AILYN COBIAN : 1955 Age/S: 64 / F [address] Unit #: [id number] Loc: [place] [address] Phys: Giorgi Mejia DO Acct: [id number] Dis Date: Status: ADM IN PHONE #: [phone] Exam Date: 10/28/2019 1325 FAX #: Reason: GI on CKD vs CKD EXAMS: CPT: [id number] [employer] [facility] [address] Location ofdictation: B2 ULTRASOUND OF THE KIDNEYS: [...] Technologist: Carli Lakhani Trnscb Date/Time: 10/28/2019 (1410) tSOBEIDA.[facility] PAGE 1 Signed Report Name: AILYN COBIAN : 1955 Age/S: 64 / F [address] Unit #:[id number] Loc: [place] [address] Phys: Giorgi Mejia DO Acct: [id number] Dis Date: Status: ADM IN PHONE #: [phone] Exam Date: 10/28/2019 1325 FAX #: Reason: GI on CKD vs CKD EXAMS: CPT: [id number] [facility] [address] <Continued> Orig Print D/T: S: 10/28/2019 (1413) Probe: PAGE 2 Signed ReportGLUCOSE BEDSIDE [id number] 12:33:00 Test Item Value Reference Range Interpretation Comments GLUCOSE BEDSIDE TESTING (test code 243 mg/dL 70-110 H = GLUBED) GLYCOSYLATED HEMOGLOBIN [id number] 10:34:00 Test Item Value Reference Range Interpretation [...] 1.22 Ratio 1.48-3.22 Avg L BASIC METABOLIC [id number] 05:40:00 Test Item Value Reference Range Interpretation [...] CA) 8.5 MG/DL 8.5-10.1 N BASIC METABOLIC [id number] 05:33:00 Test Item Value Reference Range Interpretation [...] CA) 8.5 MG/DL 8.5-10.1 N CBC W/AUTO [id number] 05:27:00 Test Item Value Reference Range Interpretation [...] (test code NO DIFF/SCN CRITERIA = MDIFF) [id number] 01:51:00 Test Item Value Reference Range Interpretation [...] may [facility]. Completed by Nursing: [id number] 22:58:00 Test Item Value Reference Range Interpretation [...] Completed by Nursing: NOCOVID 19 Asymptomatic IH [id number] 21:23:00 Test Item Value Reference Range Interpretation [...] tent with COVID-19. Emergent procedure? NORHEUMATOID FACTOR [id number] 17:08:00 Test Item Value Reference Range Interpretation Comments RHEUMATOID FACTOR <10.0 IU/mL 0.0-13.9 Performed At: [facility] SCREEN (test code = [facility] [place] [address] [address]) [place], [place] [id number] Gaytan MD Ph:[phone] ANTINUCLEAR ANTIBODIES [id number] 17:08:00 Test Item Value Reference Range Interpretation Comments NAVI TITER (test code Negative () = ANATITR) Nega tive <1:80 Borderline 1:8 0 Positive >1:80Performed At: [facility] [address] [id number] Gaytan MD Ph:[phone] NEUTROPHIL CYTOPLASMIC [id number] 17:08:00 Test Item Value Reference Range Interpretation [...] testing of p ositive sera with both DE-3 and MPO-ANCA enzyme immunoassays. A s many as 5% serumsamples are positive only b y EIA. Ref. AM J Clin Ocjrrg2844;111: 507-513. ATYPICAL ANCA <1:20 titer Neg:<1:20 The atypical p ANCA pattern (test code = has been observ ed in ANCACOM) asignificant pe rcentage of patients with u lcerative colitis,primary sclerosing cholangitis and autoimmune hepatitis.Perfo rmed At: [facility] o[address] [place], [place] [address]Plzxqr ra [employer] THOMPSON Ph:[phone] RHEUMATOID FACTOR [id number] 13:10:00 Test Item Value Reference Range Interpretation Comments RHEUMATOID FACTOR <10.0 IU/mL 0.0-13.9 Performed At: [facility] S[facility]EN (test code = [facility] [place] [place] [address] ) [place], [place] [address]UulfuRobles Gaytan MD Ph:[phone] ANTINUCLEAR ANTIBODIES [id number] 13:10:00 Test Item Value Reference Range Interpretation Comments NAVI TITER (test code Negative () = ANATITR) Nega tive <1:80 Borderline 1:8 0 Positive >1:80Performed At: [facility] [address] [place], [place] [id number] Gaytan MD Ph:[phone] NEUTROPHIL CYTOPLASMIC [id number] 13:10:00 Test Item Value Reference Range Interpretation Comments AB ANTI-NEUTROPHIL CYTO C (test code = NEUTCABC) AB ANTI-NEUTROPHIL CYTO P (test code = NEUTCAB-P) ATYPICAL ANCA (test code = ANCACOM) RHEUMATOID FACTOR [id number] 09:11:00 Test Item Value Reference Range Interpretation Comments RHEUMATOID FACTOR <10.0 IU/mL 0.0-13.9 Performed At: HD [facility]EN (test [facility] = [facility] [place], [place] [id number] Gaytan MD Ph:[phone] ANTINUCLEAR ANTIBODIES [id number] 09:11:00 Test Item Value Reference Range Interpretation Comments NAVI TITER (test code = ANATITR) NEUTROPHIL CYTOPLASMIC [id number] 09:11:00 Test Item Value Reference Range Interpretation Comments AB ANTI-NEUTROPHIL CYTO C (test code = NEUTCABC) AB ANTI-NEUTROPHIL CYTO P (test code = NEUTCAB-P) ATYPICAL ANCA (test code = ANCACOM) GLUCOSE BEDSIDE [id number] 08:06:00 Test Item Value Reference Range Interpretation Comments GLUCOSE BEDSIDE TESTING (test code 159 mg/dL 70-110 H = GLUBED) GLUCOSE BEDSIDE [id number] 06:24:00 Test Item Value Reference Range Interpretation Comments GLUCOSE BEDSIDE TESTING (test code 137 mg/dL 70-110 H = GLUBED) BASIC METABOLIC [id number] 06:18:00 Test Item Value Reference Range Interpretation [...] CA) 8.3 MG/DL 8.5-10.1 L CBC W/AUTO [id number] 06:02:00 Test Item Value Reference Range Interpretation [...] NO DIFF/SCN CRITERIA = MDIFF) GLUCOSE BEDSIDE [id number] 05:41:00 Test Item Value Reference Range Interpretation Comments GLUCOSE BEDSIDE TESTING (test code = 74 mg/dL 70-110 N GLUBED) GLUCOSE BEDSIDE [id number] 20:51:00 Test Item Value Reference Range Interpretation Comments GLUCOSE BEDSIDE TESTING (test code 207 mg/dL 70-110 H = GLUBED) GLUCOSE BEDSIDE [id number] 19:59:00 Test Item Value Reference Range Interpretation Comments GLUCOSE BEDSIDE TESTING (test code 185 mg/dL 70-110 H = GLUBED) GLUCOSE BEDSIDE [id number] 19:51:00 Test Item Value Reference Range Interpretation Comments GLUCOSE BEDSIDE TESTING (test code 174 mg/dL 70-110 H = GLUBED) GLUCOSE BEDSIDE [id number] 12:01:00 Test Item Value Reference Range Interpretation Comments GLUCOSE BEDSIDE TESTING (test code = 99 mg/dL 70-110 N GLUBED) GLUCOSE BEDSIDE [id number] 10:01:00 Test Item Value Reference Range Interpretation Comments GLUCOSE BEDSIDE TESTING (test code = 96 mg/dL 70-110 N GLUBED) BASIC METABOLIC [id number] 06:37:00 Test Item Value Reference Range Interpretation [...] CA) 8.6 MG/DL 8.5-10.1 N CBC W/AUTO [id number] 06:31:00 Test Item Value Reference Range Interpretation [...] NO DIFF/SCN CRITERIA = MDIFF) GLUCOSE BEDSIDE [id number] 21:06:00 Test Item Value Reference Range Interpretation Comments GLUCOSE BEDSIDE TESTING (test code 315 mg/dL 70-110 H = GLUBED) GLUCOSE BEDSIDE [id number] 17:01:00 Test Item Value Reference Range Interpretation Comments GLUCOSE BEDSIDE TESTING (test code 368 mg/dL 70-110 H = GLUBED) VANCOMYCIN [id number] 16:41:00 Test Item Value Reference Range Interpretation Comments VANCOMYCIN TROUGH (test code = 20.4 mcG/ML 10-20 H VANCT) GLUCOSE BEDSIDE [id number] 11:27:00 Test Item Value Reference Range Interpretation Comments GLUCOSE BEDSIDE TESTING (test code 128 mg/dL 70-110 H = GLUBED) BASIC METABOLIC [id number] 08:49:00 Test Item Value Reference Range Interpretation [...] CA) 8.9 MG/DL 8.5-10.1 N GLUCOSE BEDSIDE [id number] 08:31:00 Test Item Value Reference Range Interpretation Comments GLUCOSE BEDSIDE TESTING (test code 160 mg/dL 70-110 H = GLUBED) CBC W/AUTO [id number] 08:26:00 Test Item Value Reference Range Interpretation [...] NO DIFF/SCN CRITERIA = MDIFF) GLUCOSE BEDSIDE [id number] 21:15:00 Test Item Value Reference Range Interpretation Comments GLUCOSE BEDSIDE TESTING (test code 224 mg/dL 70-110 H = GLUBED) GLUCOSE BEDSIDE [id number] 16:30:00 Test Item Value Reference Range Interpretation Comments GLUCOSE BEDSIDE TESTING (test code 255 mg/dL 70-110 H = GLUBED) GLUCOSE BEDSIDE [id number] 11:42:00 Test Item Value Reference Range Interpretation Comments GLUCOSE BEDSIDE TESTING (test code 402 mg/dL 70-110 H = GLUBED) BASIC METABOLIC [id number] 10:46:00 Test Item Value Reference Range Interpretation [...] CA) 8.6 MG/DL 8.5-10.1 N GLUCOSE BEDSIDE [id number] 07:58:00 Test Item Value Reference Range Interpretation Comments GLUCOSE BEDSIDE TESTING (test code 333 mg/dL 70-110 H = GLUBED) GLUCOSE BEDSIDE [id number] 21:32:00 Test Item Value Reference Range Interpretation Comments GLUCOSE BEDSIDE TESTING (test code 417 mg/dL 70-110 H = GLUBED) GLUCOSE BEDSIDE [id number] 18:48:00 Test Item Value Reference Range Interpretation Comments GLUCOSE BEDSIDE TESTING (test code 435 mg/dL 70-110 H = GLUBED) GLUCOSE BEDSIDE [id number] 16:42:00 Test Item Value Reference Range Interpretation Comments GLUCOSE BEDSIDE TESTING (test code 513 mg/dL 70-110 HH = GLUBED) GLUCOSE BEDSIDE [id number] 11:33:00 Test Item Value Reference Range Interpretation Comments GLUCOSE BEDSIDE TESTING (test code 448 mg/dL 70-110 H = GLUBED) GLUCOSE BEDSIDE [id number] 07:53:00 Test Item Value Reference Range Interpretation Comments GLUCOSE BEDSIDE TESTING (test code 411 mg/dL 70-110 H = GLUBED) BASIC METABOLIC [id number] 04:10:00 Test Item Value Reference Range Interpretation [...] CA) 8.7 MG/DL 8.5-10.1 N CBC W/AUTO [id number] 03:58:00 Test Item Value Reference Range Interpretation [...] NO DIFF/SCN CRITERIA = MDIFF) GLUCOSE BEDSIDE [id number] 22:08:00 Test Item Value Reference Range Interpretation Comments GLUCOSE BEDSIDE TESTING (test code 266 mg/dL 70-110 H = GLUBED) GLUCOSE BEDSIDE [id number] 22:07:00 Test Item Value Reference Range Interpretation Comments GLUCOSE BEDSIDE TESTING (test code 362 mg/dL 70-110 H = GLUBED) GLUCOSE BEDSIDE [id number] 16:43:00 Test Item Value Reference Range Interpretation Comments GLUCOSE BEDSIDE TESTING (test code 187 mg/dL 70-110 H = GLUBED) - DUP VEIN UNI [id number] 12:41:00 Name: AILYN COBIAN [facility] : 1955 Age/S: 64 / F [id number] Unit #: [id number] Loc: [place] [address] Phys: Anatoly River MD Acct: [id number] Dis Date: Status: ADM IN PHONE #: [phone] Exam Date: 08/23/2019 1222 FAX #: Reason: RULE OUT DVT EXAMS: CPT: [id number] [place] [id number] Doppler venous ultrasound right lower extremity History: [...] COBIAN : 1955 Age/S: 64 / F [id number] Unit #: [id number] Loc: [place] [address] Phys: Anatoly River MD Acct: [id number] Dis Date: Status: ADM IN PHONE #: [phone] Exam Date: 08/23/2019 1222 FAX #: Reason: RULE OUT DVT EXAMS: CPT: [id number] [place] [id number] <Continued> Orig Print D/T: S: 08/23/2019 (4174) Probe: PAGE 2 Signed ReportGLUCOSE BEDSIDE [id number] 11:32:00 Test Item Value Reference Range Interpretation Comments GLUCOSE BEDSIDE TESTING (test code 229 mg/dL 70-110 H = GLUBED) GLUCOSE BEDSIDE [id number] 08:03:00 Test Item Value Reference Range Interpretation Comments GLUCOSE BEDSIDE TESTING (test code 166 mg/dL 70-110 H = GLUBED) BASIC METABOLIC [id number] 06:43:00 Test Item Value Reference Range Interpretation [...] CA) 8.3 MG/DL 8.5-10.1 L CBC W/AUTO [id number] 06:35:00 Test Item Value Reference Range Interpretation [...] NO DIFF/SCN CRITERIA = MDIFF) GLUCOSE BEDSIDE [id number] 00:48:00 Test Item Value Reference Range Interpretation Comments GLUCOSE BEDSIDE TESTING (test code 252 mg/dL 70-110 H = GLUBED) GLUCOSE BEDSIDE [id number] 16:23:00 Test Item Value Reference Range Interpretation Comments GLUCOSE BEDSIDE TESTING (test code 147 mg/dL 70-110 H = GLUBED) GLUCOSE BEDSIDE [id number] 12:16:00 Test Item Value Reference Range Interpretation Comments GLUCOSE BEDSIDE TESTING (test code 286 mg/dL 70-110 H = GLUBED) GLUCOSE BEDSIDE [id number] 07:57:00 Test Item Value Reference Range Interpretation Comments GLUCOSE BEDSIDE TESTING (test code 197 mg/dL 70-110 H = GLUBED) BASIC METABOLIC [id number] 06:27:00 Test Item Value Reference Range Interpretation [...] CA) 8.1 MG/DL 8.5-10.1 L CBC W/AUTO [id number] 06:23:00 Test Item Value Reference Range Interpretation [...] NO DIFF/SCN CRITERIA = MDIFF) GLUCOSE BEDSIDE [id number] 22:45:00 Test Item Value Reference Range Interpretation Comments GLUCOSE BEDSIDE TESTING (test code 255 mg/dL 70-110 H = GLUBED) GLUCOSE BEDSIDE [id number] 16:53:00 Test Item Value Reference Range Interpretation Comments GLUCOSE BEDSIDE TESTING (test code 283 mg/dL 70-110 H = GLUBED) GLUCOSE BEDSIDE [id number] 12:20:00 Test Item Value Reference Range Interpretation Comments GLUCOSE BEDSIDE TESTING (test code 250 mg/dL 70-110 H = GLUBED) GLUCOSE BEDSIDE [id number] 10:22:00 Test Item Value Reference Range Interpretation Comments GLUCOSE BEDSIDE TESTING (test code 233 mg/dL 70-110 H = GLUBED) GLUCOSE BEDSIDE [id number] 07:57:00 Test Item Value Reference Range Interpretation Comments GLUCOSE BEDSIDE TESTING (test code 231 mg/dL 70-110 H = GLUBED) BASIC METABOLIC [id number] 06:22:00 Test Item Value Reference Range Interpretation [...] CA) 8.1 MG/DL 8.5-10.1 L CBC W/AUTO [id number] 06:10:00 Test Item Value Reference Range Interpretation [...] NO DIFF/SCN CRITERIA = MDIFF) GLUCOSE BEDSIDE [id number] 21:00:00 Test Item Value Reference Range Interpretation Comments GLUCOSE BEDSIDE TESTING (test code 313 mg/dL 70-110 H = GLUBED) GLUCOSE BEDSIDE [id number] 18:43:00 Test Item Value Reference Range Interpretation Comments GLUCOSE BEDSIDE TESTING (test code 396 mg/dL 70-110 H = GLUBED) GLUCOSE BEDSIDE [id number] 17:26:00 Test Item Value Reference Range Interpretation Comments GLUCOSE BEDSIDE TESTING (test code 410 mg/dL 70-110 H = GLUBED) GLUCOSE BEDSIDE [id number] 11:40:00 Test Item Value Reference Range Interpretation Comments GLUCOSE BEDSIDE TESTING (test code 354 mg/dL 70-110 H = GLUBED) - CT CHEST W/O [id number] 09:46:00 Name: AILYN COBIAN : 1955 Age/S: 64 / F [id number] Unit #: [id number] Loc: [place] [address] Phys: Anatoly River MD Acct: [id number] Dis Date: Status: ADM IN PHONE #: [phone] Exam Date: 08/20/2019 09 FAX #: Reason: shortness of breath EXAMS: CPT: [id number] CT CHEST W/O CONTRAST 80131 HISTORY: Shortness of breath, history of heart [...] COBIAN : 1955 Age/S: 64 / F [id number] [address] Unit #: [id number] Loc: [place] [address] Phys: Anatoly River MD Acct: [id number] Dis Date: Status: ADM IN PHONE #: [phone] Exam Date: 08/20/2019909 FAX #: Reason: shortness of breath EXAMS: CPT: [id number] CT CHEST W/O CONTRAST 10239 <Continued> Cardiomegaly. Interstitial lung density and haziness may represent COPD changes. A superimposed mild degree of interstitial edema difficult to exclude. No effusion evident. No focal lungdensities for pneumonia. Location: [facility] at 0946 Reported and signed by: Smith Smith M.D CC: Anatoly River MD; Disha Duncan MD Technologist:Kwesi Montalvo, RT(R)(CT) CTDI: DLP: Trnscb Date/Time: 08/20/2019 (0946) [email or web address] Orig Print D/T: S: 08/20/2019 (0949) PAGE 2 Signed ReportGLUCOSE BEDSIDE [id number] 09:40:00 Test Item Value Reference Range Interpretation Comments GLUCOSE BEDSIDE TESTING (test code 266 mg/dL 70-110 H = GLUBED) CBC W/AUTO [id number] 08:31:00 Test Item Value Reference Range Interpretation [...] CONSISTA NT WITH AUTO DIFFERENTIAL. CBC W/AUTO [id number] 08:31:00 Test Item Value Reference Range Interpretation [...] MDIFF) CONSISTA NT WITH AUTO DIFFERENTIAL. RBC [id number] 08:31:00 Test Item Value Reference Range Interpretation Comments POLYCHROMASIA (test code = TRACE ON SCAN NONE POLC) ANISOCYTOSIS (test code = TRACE NONE ANISO) MACROCYTOSIS (test code = TRACE ON SCAN NONE MACR) STOMATOCYTES (test code = TRACE ON SCAN NONE STO) PLATELET ESTIMATE (test ADEQUATE THOUSAND ADEQUATE code = PLTEST) PLATELET MORPHOLOGY (test NORMAL code = PLTMORPH) CBC W/AUTO [id number] 08:31:00 Test Item Value Reference Range Interpretation [...] CONSISTA NT WITH AUTO DIFFERENTIAL. BASIC METABOLIC [id number] 06:57:00 Test Item Value Reference Range Interpretation [...] CA) 8.4 MG/DL 8.5-10.1 L CBC W/AUTO [id number] 06:51:00 Test Item Value Reference Range Interpretation [...] code = DIFF/SCN CRITERIA MDIFF) GLUCOSE BEDSIDE [id number] 20:28:00 Test Item Value Reference Range Interpretation Comments GLUCOSE BEDSIDE TESTING (test code 245 mg/dL 70-110 H = GLUBED) GLUCOSE BEDSIDE [id number] 16:33:00 Test Item Value Reference Range Interpretation Comments GLUCOSE BEDSIDE TESTING (test code 217 mg/dL 70-110 H = GLUBED) GLUCOSE BEDSIDE [id number] 11:59:00 Test Item Value Reference Range Interpretation Comments GLUCOSE BEDSIDE TESTING (test code 315 mg/dL 70-110 H = GLUBED) GLUCOSE BEDSIDE [id number] 07:56:00 Test Item Value Reference Range Interpretation Comments GLUCOSE BEDSIDE TESTING (test code 383 mg/dL 70-110 H = GLUBED) Novel Coronavirus [id number] 07:44:00 Test Item Value Reference Range Interpretation Comments Novel Coronavirus Negative Negative Positive r esults are 2019 Inhouse (test indicativ e of the presence code = [id number]) ofSARS-CoV -2 RNA, clinical correlation wit h [...] for the identification of SARS-CoV-2 RNA usingthe [employer] M2000 Sy stem under the FDA Emergen cy UseAuthorizatio n. The testing is perf ormed by personneltraine d in the procedures for the [employer]rell M2000 molecular diagnostic SARS-CoV-2 assa y in vitro. Testing Criteria: Shortness of BreathNovel Coronavirus [id number] 07:44:00 Test Item Value Reference Range Interpretation Comments Novel Coronavirus Negative Negative Positive r esults are 2019 Inhouse (test indicativ e of the presence code = [id number]) ofSARS-CoV -2 RNA, clinical correlation wit h [...] n. The testing is perf ormed by personneltraine d in the procedures for the Ferrell M2000 molecular diagnostic SARS-CoV-2 assa y in vitro. Testing Criteria: Shortness of BreathCBC W/AUTO [id number] 07:13:00 Test Item Value Reference Range Interpretation [...] CONSISTA NT WITH AUTO DIFFERENTIAL. CBC W/AUTO [id number] 06:49:00 Test Item Value Reference Range Interpretation [...] code = DIFF/SCN CRITERIA MDIFF) BASIC METABOLIC [id number] 06:46:00 Test Item Value Reference Range Interpretation [...] CA) 7.9 MG/DL 8.5-10.1 L GLUCOSE BEDSIDE [id number] 20:12:00 Test Item Value Reference Range Interpretation Comments GLUCOSE BEDSIDE TESTING (test code 221 mg/dL 70-110 H = GLUBED) GLUCOSE BEDSIDE [id number] 16:43:00 Test Item Value Reference Range Interpretation Comments GLUCOSE BEDSIDE TESTING (test code 288 mg/dL 70-110 H = GLUBED) [id number] 16:21:00 Test Item Value Reference Range Interpretation [...] yby method. Completed by Nursing: NOGLUCOSE BEDSIDE [id number] 12:08:00 Test Item Value Reference Range Interpretation Comments GLUCOSE BEDSIDE TESTING (test code 200 mg/dL 70-110 H = GLUBED) GLUCOSE BEDSIDE [id number] 08:06:00 Test Item Value Reference Range Interpretation Comments GLUCOSE BEDSIDE TESTING (test code 186 mg/dL 70-110 H = GLUBED) COMPREHENSIVE METABOLIC [id number] 07:03:00 Test Item Value Reference Range Interpretation [...] 45-117 H TOTAL (test code = ALKP) [id number] 07:03:00 Test Item Value Reference Range Interpretation Comments MAGNESIUM (test code = MAG) 1.9 MG/DL 1.8-2.4 N CBC W/AUTO [id number] 06:35:00 Test Item Value Reference Range Interpretation [...] = NO DIFF/SCN CRITERIA MDIFF) GLUCOSE BEDSIDE [id number] 19:53:00 Test Item Value Reference Range Interpretation Comments GLUCOSE BEDSIDE TESTING (test code 303 mg/dL 70-110 H = GLUBED) GLUCOSE BEDSIDE [id number] 17:11:00 Test Item Value Reference Range Interpretation Comments GLUCOSE BEDSIDE TESTING (test code 233 mg/dL 70-110 H = GLUBED)
== END 2019-12-27 16:30 | disposition short-term general hospital (02) | DRG 308 ==
LOC: ER 03:03 → ERHOLD 06:42
PROVIDERS: ADMIT Hospitalist; ATTEND Hospitalist
DX: I48.0 Paroxysmal atrial fibrillation (principal); J18.9 Pneumonia, unspecified organism; J44.0 Chronic obstructive pulmonary disease with (acute) lower respiratory infection; N17.9 Acute kidney failure, unspecified; I13.0 Hypertensive heart and chronic kidney disease with heart failure and stage 1 through stage 4 chronic kidney disease, or unspecified chronic kidney disease; I50.32 Chronic diastolic (congestive) heart failure; S36.119A Unspecified injury of liver, initial encounter; N18.30 Chronic kidney disease, stage 3 unspecified; E11.22 Type 2 diabetes mellitus with diabetic chronic kidney disease; I25.10 Atherosclerotic heart disease of native coronary artery without angina pectoris; I27.20 Pulmonary hypertension, unspecified; R79.89 Other specified abnormal findings of blood chemistry; G25.81 Restless legs syndrome; I50.812 Chronic right heart failure; E66.01 Morbid (severe) obesity due to excess calories; Z68.39 Body mass index [BMI] 39.0-39.9, adult; Z95.5 Presence of coronary angioplasty implant and graft; Z95.1 Presence of aortocoronary bypass graft; Z79.4 Long term (current) use of insulin; Z79.01 Long term (current) use of anticoagulants; Z91.19 Patient's noncompliance with other medical treatment and regimen; Z79.899 Other long term (current) drug therapy; Z88.1 Allergy status to other antibiotic agents; Z20.828 Contact with and (suspected) exposure to other viral communicable diseases
CPT/HCPCS: 36415; 71045; 71275; 74177; 76705; 80048; 80053; 80061; 80074; 80076; 80307; 80320; 80329; 82140; 82550; 82553; 82947; 82977; 83036; 83615; 83690; 83735; 83880; 84443; 84484; 85025; 85379; 85610; 85730; 87040; 87070; 87081; 87205; 87804; 93005; 99284; J0692; J1815; J2270; Q9967; U0003

== ENCOUNTER 2022-01-12 17:27 | Emergency (ER) | payer OTHER ==
--- OUTSIDE RECORDS SUMMARY | 2022-01-12 17:37 | XMS REPORT | Continuity of Care Document ---
:1955 Author Organization [facility] t Address [address] [place] [address] Care Team Providers Name Role Phone RONI MILLS Attending Clinician Unavailable Raleigh Roy Attending Clinician Unavailable Disha Duncan Attending Clinician Unavailable RONI MILLS Admitting Clinician Unavailable [place] Roy Admitting Clinician Unavailable Physician, No Primary or Family Admitting Clinician Unavaila ble Adam Duncanadiolya Admitting Clinician Unavailable Payers Payer Name Policy Type Policy Number Effective Date Expiration Date Xiang ponce [facility] [id number] 2019 ALL 00:00:00 Problems Condition Condition Condition Status Onset Resolution Last Treating Co mments Source Name Details Category Date Date Treatment Clinician Date Atrial Atrial Disease Active 2019-[address] [facility] fibrillati fibrillati 0-06 [facility] on on 00:00: Medical 00 Center DM DM Disease Active 2019-[address] [facility] (diabetes (diabetes 0-06 [facility] mellitus), mellitus), 00:00: Me dical type 2 type 2 00 Center Transamina Transamina Disease Active 2019-[address] [facility] semia 0-06 [facility] GI (acute GI (acute Disease Active 2019-[address] kidney kidney 0-06 [facility] injury) injury) 00:00: Medical 00 Center CHF CHF Disease Active 2019-[address] [facility] (congestiv (congestiv 0-04 [facility] kes e heart e heart 00:00: Medical failure) failure) 00 Center Allergies, Adverse Reactions, Alerts Allergy Allergy Status Severity Reaction(s) Onset Inactive Treating Comm ents Source Name Type Date Date Clinician IVP DYE DA Active MO HIVES 2020-0 [facility] 8[facility]16 [place] 00:00: d 00 [facility] IVP DYE DA Active MO HIVES 2020-0 [facility] 8-14 [place] 00:00: d 00 [facility] No Known DA Active U 2019-0 [facility] Allergie 5-25 Clear s 00:00: House 00 [facility] No Known DA Active U 2003-0 [facility] Drug 3-21 [place] Intolera 00:00: d nces 00 [facility] IVP DYE DA Active U 2003-0 [facility] 3-21 [place] 00:00: d 00 [facility] No Known DA Active U 2003-0 [facility] Drug 3-21 [place] Allergie 00:00: d s 00 [facility] No Known DA Active U 2003-0 [facility] Food 3-21 [place] Allergie 00:00: d s [facility] No Known DA Active U 2003-0 [facility] Other 3-21 [place] Allergie 00:00: d s [facility] NO KNOWN Allergy Active [facility] Social History Social Habit Start Date Stop Date Quantity Comments Source History SDOH [facility] Alcohol Std Drinks Medica l Center History SDOH [facility] Alcohol Binge Medical Pretty [facility] History SDOH [facility] Alcohol Comment Medical C enter Alcohol intake 2020-01-11 2020-01-[address] [facility] 00:[facility]:00 00:00:00 non-drinker of Medical Ce nter alcohol (finding) Tobacco use and 2020-01-01 2020-01-[address] [facility] [address] [facility] k[facility] exposure 00:00:00 00:00:00 Medical Center History SDOH 2020-01-01 2020-01-[address] [facility] Alcohol Frequency 00:00:00 00:00:00 Medical Center Sex Assigned At [address] [facility] 00:00:00 00:00:00 Medical Center Smoking Status Start Date Stop Date Source Never smoker [facility] Medications Ordered Filled Start Stop Current Ordering Indication Dosage Frequency Signature Comments Components Source Medication Medication Date Date Medication? Clinician (SIG) Name Name pantoprazol 2019-03 Yes 40mg QD Take [address] [facility] e 0-18 by mouth [facility] (PROTONIX) 16:14: daily. Medic al 40 MG 08 [place] tablet traZODone 2019-03 Yes insomnia 50mg QD Take [address] (DESYREL) 0-18 associated by mouth [facility] 50 MG 16:14: with nightly. Medical tablet 08 depression [place] venlafaxine 2019-03 Yes 150mg QD Take [address] (EFFEXOR-XR 0-18 mg by [facility] ) 150 MG 24 16:14: mouth Medic al hr capsule 08 daily. [place] pramipexole 2019-03 Yes .25mg QD Take 0.[address] (MIRAPEX) 0-18 mg by [facility] 0.25 MG 16:14: mouth Medical tablet 08 daily. [place] cetirizine 2019-03 Yes 10mg QD Take [address] (ZYRTEC) 10 0-18 by mouth [facility] MG tablet 16:14: daily. Medica l 08 [place] glipiZIDE 2019-03 Yes 2.5mg QD Take 2.[address] [address] (GLUCOTROL 0-18 mg by [facility] XL) 2.5 MG 16:14: mouth Medica l 24 hr 08 daily. [place] tablet spironolact 2019-03 Yes 25mg QD Take [address] one 0-18 by mouth [facility] (ALDACTONE) 16:14: daily. Medi vincent 25 MG 08 [place] tablet potassium 2019-03 Yes QD Take by [facility] chloride 0-18 mouth [facility] (KLOR-CON) 16:14: daily. Medic al 10 MEQ CR 08 Center tablet furosemide 2019-03 Yes 40mg Q.5D Take 1 [facility] (LASIX) 40 0-18 tablet (40 [facility] MG tablet 00:00: mg total) Med ical 00 by mouth 2 Center (two) times daily. insulin NPH 2019-03 Yes 20U Inject 0.[address] 100 unit/mL 0-18 mLs (20 [facility] (3 mL) InPn 00:00: Units Medic al 00 total) Center subcutaneo usly 2 (two) times daily before meals. insulin 2019-03 Yes 10U Inject 0.[address] [facility] regular 0-18 mLs (10 [facility] (HumuLIN 00:00: Units Medical R,NovoLIN 00 total) Center R) 100 subcutaneo unit/mL usly 3 injection (three) times daily before meals Use as directed. apixaban 2019-03 Yes 5mg Q.5D Take [address] (ELIQUIS) 5 0-17 tablet (5 [facility] mg Tab 00:00: mg total) Medica l tablet 00 by mouth 2 Center (two) times daily. metoprolol 2019-03 Yes 25mg Q.5D Take 1 [facility] tartrate 0-17 tablet (25 [facility] (LOPRESSOR) 00:00: mg total) M edical 25 MG 00 by mouth 2 Center tablet (two) times daily. ADVAIR Yes Take [address] [facility] DISKUS 9-11 Inhalation [facility] 250-50 00:00: by mouth Medical mcg/dose 00 as needed. Cente r diskus inhaler HYDROcodone Yes 1{tbl} Take [address] -acetaminop 8-19 tablet by Christian es hen (NORCO 00:00: mouth as Med ical 5-325) 00 needed. Center 5-325 mg per tablet Vital Signs Vital Name Observation Time Observation Value Comments Source WEIGHT 2020-01-10 04:00:00 83.093 kg WEIGHT 2020-01-08 06:00:00 82.419 kg WEIGHT 2020-01-07 06:00:00 82.872 kg WEIGHT 2020-01-06 04:00:00 81.647 kg WEIGHT 2020-01-05 04:00:00 85.6 kg WEIGHT 2020-01-02 04:00:00 89.103 kg WEIGHT 2020-01-01 03:52:00 88.536 kg HEIGHT 2019-12-27 23:31:00 152.4 cm HEIGHT 2019-12-27 00:00:00 152.4 cm WEIGHT 2019-12-27 00:00:00 88.536 kg WEIGHT 2020-01-10 04:00:00 83.093 kg WEIGHT 2020-01-08 06:00:00 82.419 kg WEIGHT 2020-01-07 06:00:00 82.872 kg WEIGHT 2020-01-06 04:00:00 81.647 kg WEIGHT 2020-01-05 04:00:00 85.6 kg WEIGHT 2020-01-02 04:00:00 89.103 kg WEIGHT 2020-01-01 03:52:00 88.536 kg HEIGHT 2019-12-27 23:31:00 152.4 cm HEIGHT 2019-12-27 00:00:00 152.4 cm WEIGHT 2019-12-27 00:00:00 88.536 kg Procedures Procedure Date / Time Performed Performing Clinician [facility] igor [id number] 2019-08-27 00:00:00 [facility] Plan of Care Planned Activity Planned Date Details Comments Source Future Scheduled 2021-11-23 INFLUENZA VACCINE (#1) [facility] 00:00:00 [code = INFLUENZA Medical Ce nter VACCINE (#1)] Future Scheduled 2021-03-[address] [facility] Test 00:00:00 (12+) [code = Medical Center DEPRESSION SCREENING (12+)] Future Scheduled 2021-03-25 FALLS RISK SCREENING [facility] Test 00:00:00 [code = FALLS RISK Medical C enter SCREENING] Future Scheduled 2020-12-08 PNEUMOCOCCAL 65+ YRS ([address] [facility] Test 00:00:00 - PCV) [code = Medical Cente r PNEUMOCOCCAL 65+ YRS (2 - PCV)] Future Scheduled 2020-08-[address] [facility] Test 00:00:00 WELLNESS (YEAR 2 or Medical Center FIRST YEAR if no IPPE) [code = MEDICARE ANNUAL WELLNESS (YEAR 2 or FIRST YEAR if no IPPE)] Future Scheduled 2020-03-[address] [facility] Test 00:00:00 measurement (procedure) [facility] [code = 89898438] Future Scheduled 2004 SHINGLES VACCINES ([address] [facility] Test 00:00:00 2) [code = SHINGLES Medical Center VACCINES (1 of 2)] Future Scheduled 1973 DTAP/TDAP/TD VACCINES [facility] Test 00:00:00 (1 - Tdap) [code = Medical C enter DTAP/TDAP/TD VACCINES (1 - Tdap)] Future Scheduled 1972 HEPATITIS C SCREENING [facility] 00:00:00 [code = HEPATITIS C Medical Center SCREENING] Future Scheduled 1964 DIABETIC EYE EXAM [code [facility] Test 00:00:00 = DIABETIC EYE EXAM] Medical Center Future Scheduled [address] Test 00:00:00 examination [facility] (regime/therapy) [code = 665293534] Future Scheduled 1964 Urine screening for [facility] Test 00:00:00 protein (procedure) [facility] [code = 370331644] Future Scheduled 1956-02-18 COVID-19 VACCINE (#1) [facility] 00:00:00 [code = COVID-[address] VACCINE (#1)] Future Scheduled 1954 Screening for malignant [facility] Test 00:00:00 neoplasm of breast Medical C enter (procedure) [code = 031394493] Future Scheduled 1954 CT Colonography (combo) [facility] Test 00:00:00 [code = CT Colonography [facility] (combo)] Future Scheduled 1954 Screening for malignant [facility] Test 00:00:00 neoplasm of colon Medical Ce nter (procedure) [code = 373319719] Future Scheduled 1954 Screening for malignant [facility] Test 00:00:00 neoplasm of colon Medical Ce nter (procedure) [code = 368121372] Future Scheduled 1955 DXA SCAN [code = DXA [facility] Test 00:00:00 SCAN] [facility] Future Scheduled 1954 Screening for malignant [facility] Test 00:00:00 neoplasm of colon Medical Ce nter (procedure) [code = 470657054] Future Scheduled 1954 Screening for malignant [facility] Test 00:00:00 neoplasm of colon Medical Ce nter (procedure) [code = 551216411] Future Scheduled 1955 Sigmoidoscopy [code = [facility] Test 00:00:00 Sigmoidoscopy] Medical Cente r Encounters Start End Encounter Admission Attending Care Care Encounter Source Date/Time Date/Time Type Type Clinicians Facility Department ID 2019-12-27 Inpatient UR KYLEEERLUISA, SLE Cardiology [id number] [facility] 17:28:00 RONI 2019-11-08 Inpatient UR Frapravinqupetra, HCAPM MEDI.01 [id number] [facility] 13:42:00 [place] 51 [facility] 2019-10-27 Inpatient HCAPM RADHA [id number] [facility] 20:40:00 25 [facility] 2019-08-17 Inpatient EM Dakota, HCAPM MEDI [id number] [facility] 10:01:00 Oladipo 80 [facility] 2019-10-29 2019-10-29 Outpatient Franavya, HCACL LABO [id number] [facility] 00:06:00 00:06:00 [place] 51 [facility] 2019-08-17 2019-08-17 Outpatient [place], HCACL OUTD [id number] [facility] 13:44:00 13:44:00 Oladipo 15 [facility] Results Test Description Test Time Test Comments Results Result Comments Source POCT-GLUCOSE METER 2020-01-10 11:52:00 Test Item Value Reference Range Interpretation Comme nts POC-GLUCOSE METER (BEAKER) 226 mg/dL 70-110 H : TESTED AT [facility] [address] [facility] (test code = 1538) [facility], [address]: Manager Long Term Care/Techni stephanie ID = [id number] for CARLITO JACKSON POCT-GLUCOSE [id number] 08:04:00 Test Item Value Reference Range Interpretation Comments POC-GLUCOSE METER 189 mg/dL 70-110 H : TESTED A T [facility] [address] (BEAKER) (test code = JULIO Galvan [facility], 1538) [address]: Manager Long Term Care/Techni stephanie ID = [id number] for CARLITO YOUNGBLOOD BASIC METABOLIC [id number] 06:33:00 Test Item Value Reference Range Interpretation Comments SODIUM (BEAKER) 134 meq/L 136-145 L (test code = 381) POTASSIUM (BEAKER) 4.5 meq/L 3.5-5.1 (test code = 379) CHLORIDE (BEAKER) 95 meq/L 98-107 L (test code = 382) CO2 (BEAKER) (test 30 meq/L 22-29 H code = 355) BLOOD UREA NITROGEN 22 mg/dL 7-21 H (BEAKER) (test code = 354) CREATININE (BEAKER) 1.24 mg/dL 0.57-1.25 (test code = 358) GLUCOSE RANDOM 199 mg/dL 70-105 H (BEAKER) (test code = 652) CALCIUM (BEAKER) 7.9 mg/dL 8.4-10.2 L (test code = 697) EGFR (BEAKER) (test 43 mL/min/1.73 ESTIMA JOSE GFR IS code = 1092) sq m NOT ACCURATE CREATININE CLEARANCE IN PREDICTING GLOMERULAR FILTRATION RATE . ESTIMATED GFR I S NOT APPLICABLE FOR DIALYSIS PATIEN TS. Manager Long Term Care ID - EDASIHEPATIC FUNCTION [id number] 06:28:00 Test Item Value Reference Range Interpretation Comments TOTAL PROTEIN (BEAKER) (test code = 7.1 gm/dL 6.0-8.3 770) ALBUMIN (BEAKER) (test code = 1145) 3.1 g/dL 3.5-5.0 L BILIRUBIN TOTAL (BEAKER) (test code 1.0 mg/dL 0.2-1.2 = 377) BILIRUBIN DIRECT (BEAKER) (test 0.6 mg/dL 0.1-0.5 H code = 706) ALKALINE PHOSPHATASE (BEAKER) (test 125 U/L 40-150 code = 346) AST (SGOT) (BEAKER) (test code = 34 U/L 5-34 353) ALT (SGPT) (BEAKER) (test code = 32 U/L 6-55 347) Manager Long Term Care ID - EDASICBC W/PLT COUNT & AUTO [id number] 05:43:00 Test Item Value Reference Range Interpretation Comments WHITE BLOOD CELL COUNT (BEAKER) 6.4 K/ L 3.5-10.5 (test code = 775) RED BLOOD CELL COUNT (BEAKER) 4.59 M/ L 3.93-5.22 (test code = 761) HEMOGLOBIN (BEAKER) (test code = 12.0 GM/DL 11.2-15.7 410) HEMATOCRIT (BEAKER) (test code = 40.8 % 34.1-44.9 411) MEAN CORPUSCULAR VOLUME (BEAKER) 88.9 fL 79.4-94.8 (test code = 753) MEAN CORPUSCULAR HEMOGLOBIN 26.1 pg 25.6-32.2 (BEAKER) (test code = 751) MEAN CORPUSCULAR HEMOGLOBIN CONC 29.4 GM/DL 32.2-35.5 L (BEAKER) (test code = 752) RED CELL DISTRIBUTION WIDTH 18.3 % 11.7-14.4 H (BEAKER) (test code = 412) PLATELET COUNT (BEAKER) (test 327 K/CU MM 150-450 code = 756) MEAN PLATELET VOLUME (BEAKER) 9.1 fL 9.4-12.3 L (test code = 754) NUCLEATED RED BLOOD CELLS 0 /100 WBC 0-0 (BEAKER) (test code = 413) NEUTROPHILS RELATIVE PERCENT 57 % (BEAKER) (test code = 429) LYMPHOCYTES RELATIVE PERCENT 23 % (BEAKER) (test code = 430) MONOCYTES RELATIVE PERCENT 13 % (BEAKER) (test code = 431) EOSINOPHILS RELATIVE PERCENT 6 % (BEAKER) (test code = 432) BASOPHILS RELATIVE PERCENT 1 % (BEAKER) (test code = 437) NEUTROPHILS ABSOLUTE COUNT 3.68 K/ L 1.56-6.13 (BEAKER) (test code = 670) LYMPHOCYTES ABSOLUTE COUNT 1.47 K/ L 1.18-3.74 (BEAKER) (test code = 414) MONOCYTES ABSOLUTE COUNT (BEAKER) 0.82 K/ L 0.24-0.36 H (test code = 415) EOSINOPHILS ABSOLUTE COUNT 0.36 K/ L 0.04-0.36 (BEAKER) (test code = 416) BASOPHILS ABSOLUTE COUNT (BEAKER) 0.08 K/ L 0.01-0.08 (test code = 417) IMMATURE GRANULOCYTES-RELATIVE 0 % 0-1 PERCENT (BEAKER) (test code = 2801) POCT-GLUCOSE [id number] 20:58:00 Test Item Value Reference Range Interpretation Comments POC-GLUCOSE METER 112 mg/dL 70-110 H : TESTED A T [facility] [address] (BEAKER) (test code = [place], 1538) [address]: Manager Long Term Care/Techni stephanie ID = [id number] for BAILEE HUYNH POCT-GLUCOSE [id number] 17:58:00 Test Item Value Reference Range Interpretation Comments POC-GLUCOSE METER 163 mg/dL 70-110 H : TESTED A T [facility] [address] (BEAKER) (test code = [facility], 1538) [address]: Manager Long Term Care/Techni stephanie ID = [id number] for CARLITO YOUNGBLOOD POCT-GLUCOSE [id number] 12:27:00 Test Item Value Reference Range Interpretation Comments POC-GLUCOSE METER 302 mg/dL 70-110 H : TESTED A T [facility] [address] (BEAKER) (test code = [facility], 1538) [address]: Manager Long Term Care/Techni stephanie ID = [id number] for JENNI SUAREZ POCT-GLUCOSE [id number] 08:28:00 Test Item Value Reference Range Interpretation Comments POC-GLUCOSE METER 145 mg/dL 70-110 H : TESTED A T [facility] [address] (BEAKER) (test code = [facility], 1538) [address]: Manager Long Term Care/Techni stephanie ID = [id number] for CARLITO YOUNGBLOOD BASIC METABOLIC [id number] 05:36:00 Test Item Value Reference Range Interpretation Comments SODIUM (BEAKER) 134 meq/L 136-145 L (test code = 381) POTASSIUM (BEAKER) 4.4 meq/L 3.5-5.1 (test code = 379) CHLORIDE (BEAKER) 96 meq/L 98-107 L (test code = 382) CO2 (BEAKER) (test 29 meq/L 22-29 code = 355) BLOOD UREA NITROGEN 21 mg/dL 7-21 (BEAKER) (test code = 354) CREATININE (BEAKER) 1.20 mg/dL 0.57-1.25 (test code = 358) GLUCOSE RANDOM 162 mg/dL 70-105 H (BEAKER) (test code = 652) CALCIUM (BEAKER) 8.7 mg/dL 8.4-10.2 (test code = 697) EGFR (BEAKER) (test 45 mL/min/1.73 ESTIMA JOSE GFR IS code = 1092) sq m NOT ACCURATE CREATININE CLEARANCE IN PREDICTING GLOMERULAR FILTRATION RATE . ESTIMATED GFR I S NOT APPLICABLE FOR DIALYSIS PATIEN TS. Manager Long Term Care ID - EDASIHEPATIC FUNCTION [id number] 05:36:00 Test Item Value Reference Range Interpretation Comments TOTAL PROTEIN (BEAKER) (test code = 7.0 gm/dL 6.0-8.3 770) ALBUMIN (BEAKER) (test code = 1145) 3.1 g/dL 3.5-5.0 L BILIRUBIN TOTAL (BEAKER) (test code 1.1 mg/dL 0.2-1.2 = 377) BILIRUBIN DIRECT (BEAKER) (test 0.7 mg/dL 0.1-0.5 H code = 706) ALKALINE PHOSPHATASE (BEAKER) (test 125 U/L 40-150 code = 346) AST (SGOT) (BEAKER) (test code = 36 U/L 5-34 H 353) ALT (SGPT) (BEAKER) (test code = 41 U/L 6-55 347) Manager Long Term Care ID - EDASICBC W/PLT COUNT & AUTO [id number] 04:59:00 Test Item Value Reference Range Interpretation Comments WHITE BLOOD CELL COUNT (BEAKER) 7.1 K/ L 3.5-10.5 (test code = 775) RED BLOOD CELL COUNT (BEAKER) 4.30 M/ L 3.93-5.22 (test code = 761) HEMOGLOBIN (BEAKER) (test code = 11.1 GM/DL 11.2-15.7 L 410) HEMATOCRIT (BEAKER) (test code = 37.9 % 34.1-44.9 411) MEAN CORPUSCULAR VOLUME (BEAKER) 88.1 fL 79.4-94.8 (test code = 753) MEAN CORPUSCULAR HEMOGLOBIN 25.8 pg 25.6-32.2 (BEAKER) (test code = 751) MEAN CORPUSCULAR HEMOGLOBIN CONC 29.3 GM/DL 32.2-35.5 L (BEAKER) (test code = 752) RED CELL DISTRIBUTION WIDTH 18.3 % 11.7-14.4 H (BEAKER) (test code = 412) PLATELET COUNT (BEAKER) (test 382 K/CU MM 150-450 code = 756) MEAN PLATELET VOLUME (BEAKER) 9.1 fL 9.4-12.3 L (test code = 754) NUCLEATED RED BLOOD CELLS 0 /100 WBC 0-0 (BEAKER) (test code = 413) NEUTROPHILS RELATIVE PERCENT 58 % (BEAKER) (test code = 429) LYMPHOCYTES RELATIVE PERCENT 24 % (BEAKER) (test code = 430) MONOCYTES RELATIVE PERCENT 13 % (BEAKER) (test code = 431) EOSINOPHILS RELATIVE PERCENT 4 % (BEAKER) (test code = 432) BASOPHILS RELATIVE PERCENT 2 % (BEAKER) (test code = 437) NEUTROPHILS ABSOLUTE COUNT 4.13 K/ L 1.56-6.13 (BEAKER) (test code = 670) LYMPHOCYTES ABSOLUTE COUNT 1.69 K/ L 1.18-3.74 (BEAKER) (test code = 414) MONOCYTES ABSOLUTE COUNT (BEAKER) 0.91 K/ L 0.24-0.36 H (test code = 415) EOSINOPHILS ABSOLUTE COUNT 0.25 K/ L 0.04-0.36 (BEAKER) (test code = 416) BASOPHILS ABSOLUTE COUNT (BEAKER) 0.11 K/ L 0.01-0.08 H (test code = 417) IMMATURE GRANULOCYTES-RELATIVE 1 % 0-1 PERCENT (BEAKER) (test code = 2801) POCT-GLUCOSE [id number] 00:46:00 Test Item Value Reference Range Interpretation Comments POC-GLUCOSE METER 207 mg/dL 70-110 H : TESTED A T [facility] [address] (BEAKER) (test code = [place], 1538) [address]: Manager Long Term Care/Techni stephanie ID = [id number] for PE LAGIO, WHITE RAD, CHEST, 2 [id number] 21:48:00Reason for exam:->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 FINDINGS: AP and lateral view of the chest. IMPRESSION: Support Lines: None. Lungs and pleura: Low lung volumes. Unchanged coarse interstitial airspace opacities which may be exaggerated by technique versus pulmonary vascular congestion. Mild left basilar atelectasis. Trace left pleural effusion. No pneumothorax.Heart and mediastinum: Stable contours. Stable surgical changes.Additional findings: None. Signed: Isis Chamberlaineport Verified Date/Time: 01/08/2020 21:48:06 BLOOD GAS, ARTERIAL 2020-01-08 12:17:00 Test Item Value Reference Range Interpretation Comments PH ARTERIAL (BEAKER) (test code = 7.42 7.35-7.45 383) PCO2 ARTERIAL (BEAKER) (test code 44 mm Hg 35-45 = 384) PO2 ARTERIAL (BEAKER) (test code = 149 mm Hg 80-90 H 385) O2 SATURATION ARTERIAL (BEAKER) 98.9 % 96.0-97.0 H (test code = 386) HCO3 ARTERIAL (BEAKER) (test code 28 mmol/L 21-29 = 388) BASE EXCESS ARTERIAL (BEAKER) 3.4 mmol/L -2.0-3.0 H (test code = 387) PATIENT TEMPERATURE (BEAKER) (test 37.0 code = 1818) FIO2 (BEAKER) (test code = 1819) 100.0 BLOOD GAS, [id number] 11:30:00 Test Item Value Reference Range Interpretation Comments PH ARTERIAL (BEAKER) (test code = 7.31 7.35-7.45 L 383) PCO2 ARTERIAL (BEAKER) (test code 60 mm Hg 35-45 H = 384) PO2 ARTERIAL (BEAKER) (test code = 181 mm Hg 80-90 H 385) O2 SATURATION ARTERIAL (BEAKER) 99.1 % 96.0-97.0 H (test code = 386) HCO3 ARTERIAL (BEAKER) (test code 29 mmol/L 21-29 = 388) BASE EXCESS ARTERIAL (BEAKER) 2.0 mmol/L -2.0-3.0 (test code = 387) PATIENT TEMPERATURE (BEAKER) (test 37.8 code = 1818) FIO2 (BEAKER) (test code = 1819) 100.0 POCT-GLUCOSE [id number] 11:27:00 Test Item Value Reference Range Interpretation Comments POC-GLUCOSE METER 120 mg/dL 70-110 H : TESTED A T [facility] [address] (BEAKER) (test code = JULIO Galvan [place], 1538) [address]: Manager Long Term Care/Techni stephanie ID = [id number] for BHAVNA DILL [id number] 09:28:00 Test Item Value Reference Range Interpretation Comments MAGNESIUM (BEAKER) (test code = 1.9 mg/dL 1.6-2.6 627) Manager Long Term Care ID - AAHAMIDBASIC METABOLIC [id number] 06:04:00 Test Item Value Reference Range Interpretation Comments SODIUM (BEAKER) 137 meq/L 136-145 (test code = 381) POTASSIUM (BEAKER) 3.9 meq/L 3.5-5.1 (test code = 379) CHLORIDE (BEAKER) 94 meq/L 98-107 L (test code = 382) CO2 (BEAKER) (test 32 meq/L 22-29 H code = 355) BLOOD UREA NITROGEN 19 mg/dL 7-21 (BEAKER) (test code = 354) CREATININE (BEAKER) 1.11 mg/dL 0.57-1.25 (test code = 358) GLUCOSE RANDOM 216 mg/dL 70-105 H (BEAKER) (test code = 652) CALCIUM (BEAKER) 8.6 mg/dL 8.4-10.2 (test code = 697) EGFR (BEAKER) (test 49 mL/min/1.73 ESTIMA JOSE GFR IS code = 1092) sq m NOT ACCURATE CREATININE CLEARANCE IN PREDICTING GLOMERULAR FILTRATION RATE . ESTIMATED GFR I S NOT APPLICABLE FOR DIALYSIS PATIEN TS. Manager Long Term Care ID - EDASIHEPATIC FUNCTION [id number] 06:04:00 Test Item Value Reference Range Interpretation Comments TOTAL PROTEIN (BEAKER) (test code = 8.0 gm/dL 6.0-8.3 770) ALBUMIN (BEAKER) (test code = 1145) 3.5 g/dL 3.5-5.0 BILIRUBIN TOTAL (BEAKER) (test code 1.1 mg/dL 0.2-1.2 = 377) BILIRUBIN DIRECT (BEAKER) (test 0.7 mg/dL 0.1-0.5 H code = 706) ALKALINE PHOSPHATASE (BEAKER) (test 162 U/L 40-150 H code = 346) AST (SGOT) (BEAKER) (test code = 36 U/L 5-34 H 353) ALT (SGPT) (BEAKER) (test code = 57 U/L 6-55 H 347) Manager Long Term Care ID - [id number] 05:35:00 Test Item Value Reference Range Interpretation Comments PROTIME (BEAKER) (test code = 16.8 seconds 11.9-14.2 H 759) INR (BEAKER) (test code = 370) 1.41 <=5.90 PARTIAL THROMBOPLASTIN TIME 32.9 seconds 22.5-36.0 (BEAKER) (test code = 760) Effective 08/20/2018: PT Reference Range ChangeNew: 11.9-14.2 Previous: 11.7- 14.7RECOMMENDED COUMADIN/WARFARIN INR THERAPY RANGESSTANDARD DOSE: 2.0-3.0 Includes: PROPHYLAXIS for venous thrombosis, systemic embolization; TREATMENT for venous thrombosis and/or pulmonary embolus.HIGH RISK: Target INR is 2.5-3.5 for patients wiht mechanical heart valves.CBC W/PLT COUNT & AUTO [id number] 05:23:00 Test Item Value Reference Range Interpretation Comments WHITE BLOOD CELL COUNT (BEAKER) 6.9 K/ L 3.5-10.5 (test code = 775) RED BLOOD CELL COUNT (BEAKER) 4.93 M/ L 3.93-5.22 (test code = 761) HEMOGLOBIN (BEAKER) (test code = 13.3 GM/DL 11.2-15.7 410) HEMATOCRIT (BEAKER) (test code = 44.4 % 34.1-44.9 411) MEAN CORPUSCULAR VOLUME (BEAKER) 90.1 fL 79.4-94.8 (test code = 753) MEAN CORPUSCULAR HEMOGLOBIN 27.0 pg 25.6-32.2 (BEAKER) (test code = 751) MEAN CORPUSCULAR HEMOGLOBIN CONC 30.0 GM/DL 32.2-35.5 L (BEAKER) (test code = 752) RED CELL DISTRIBUTION WIDTH 19.4 % 11.7-14.4 H (BEAKER) (test code = 412) PLATELET COUNT (BEAKER) (test 436 K/CU MM 150-450 code = 756) MEAN PLATELET VOLUME (BEAKER) 9.3 fL 9.4-12.3 L (test code = 754) NUCLEATED RED BLOOD CELLS 0 /100 WBC 0-0 (BEAKER) (test code = 413) NEUTROPHILS RELATIVE PERCENT 62 % (BEAKER) (test code = 429) LYMPHOCYTES RELATIVE PERCENT 24 % (BEAKER) (test code = 430) MONOCYTES RELATIVE PERCENT 9 % (BEAKER) (test code = 431) EOSINOPHILS RELATIVE PERCENT 4 % (BEAKER) (test code = 432) BASOPHILS RELATIVE PERCENT 1 % (BEAKER) (test code = 437) NEUTROPHILS ABSOLUTE COUNT 4.28 K/ L 1.56-6.13 (BEAKER) (test code = 670) LYMPHOCYTES ABSOLUTE COUNT 1.64 K/ L 1.18-3.74 (BEAKER) (test code = 414) MONOCYTES ABSOLUTE COUNT (BEAKER) 0.61 K/ L 0.24-0.36 H (test code = 415) EOSINOPHILS ABSOLUTE COUNT 0.26 K/ L 0.04-0.36 (BEAKER) (test code = 416) BASOPHILS ABSOLUTE COUNT (BEAKER) 0.10 K/ L 0.01-0.08 H (test code = 417) IMMATURE GRANULOCYTES-RELATIVE 1 % 0-1 PERCENT (BEAKER) (test code = 2801) POCT-GLUCOSE [id number] 20:48:00 Test Item Value Reference Range Interpretation Comments POC-GLUCOSE METER 278 mg/dL 70-110 H : Notified RN/MD: ([facility]) (test code = TESTED AT [facility] 6720 153) [facility], [address]: Manager Long Term Care/Techni stephanie ID = [id number] for HELENE MITCHELL POCT-GLUCOSE [id number] 16:45:00 Test Item Value Reference Range Interpretation Comments POC-GLUCOSE METER 282 mg/dL 70-110 H : TESTED A T [facility] 6720 ([facility]) (test code [facility], = 1538) [address]: Manager Long Term Care/Techni stephanie ID = [id number] for MARINA LAINEZSTANIE POCT-GLUCOSE [id number] 12:14:00 Test Item Value Reference Range Interpretation Comments POC-GLUCOSE METER 329 mg/dL 70-110 H : TESTED A T [facility] 6720 (BEAKER) (test code [facility], = 1538) [address]: Manager Long Term Care/Techni stephanie ID = [id number] for WILS ON, SHASTANIE POCT-GLUCOSE [id number] 07:57:00 Test Item Value Reference Range Interpretation Comments POC-GLUCOSE METER 70 mg/dL 70-110 : TESTED A T [facility] 6720 (BEAKER) (test code = JULIO Galvan [facility], 1538) [address]: Manager Long Term Care/Techni stephanie ID = [id number] for WILS ON, SHASTANIE BASIC METABOLIC [id number] 06:07:00 Test Item Value Reference Range Interpretation Comments SODIUM (BEAKER) 138 meq/L 136-145 (test code = 381) POTASSIUM (BEAKER) 4.2 meq/L 3.5-5.1 (test code = 379) CHLORIDE (BEAKER) 95 meq/L 98-107 L (test code = 382) CO2 (BEAKER) (test 34 meq/L 22-29 H code = 355) BLOOD UREA NITROGEN 19 mg/dL 7-21 (BEAKER) (test code = 354) CREATININE (BEAKER) 0.97 mg/dL 0.57-1.25 (test code = 358) GLUCOSE RANDOM 99 mg/dL 70-105 (BEAKER) (test code = 652) CALCIUM (BEAKER) 8.6 mg/dL 8.4-10.2 (test code = 697) EGFR (BEAKER) (test 58 mL/min/1.73 ESTIMA JOSE GFR IS code = 1092) sq m NOT ACCURATE CREATININE CLEARANCE IN PREDICTING GLOMERULAR FILTRATION RATE . ESTIMATED GFR I S NOT APPLICABLE FOR DIALYSIS PATIEN TS. Manager Long Term Care ID - PEYMAN EPATIC FUNCTION [id number] 06:07:00 Test Item Value Reference Range Interpretation Comments TOTAL PROTEIN (BEAKER) (test code = 7.2 gm/dL 6.0-8.3 770) ALBUMIN (BEAKER) (test code = 1145) 3.1 g/dL 3.5-5.0 L BILIRUBIN TOTAL (BEAKER) (test code 1.0 mg/dL 0.2-1.2 = 377) BILIRUBIN DIRECT (AKER) (test 0.7 mg/dL 0.1-0.5 H code = 706) ALKALINE PHOSPHATASE (BEAKER) (test 136 U/L 40-150 code = 346) AST (SGOT) (BEAKER) (test code = 37 U/L 5-34 H 353) ALT (SGPT) (AKER) (test code = 64 U/L 6-55 H 347) Manager Long Term Care ID - PEYMAN MPOCT-GLUCOSE [id number] 21:00:00 Test Item Value Reference Range Interpretation Comments POC-GLUCOSE METER 217 mg/dL 70-110 H : Notified RN/MD: ([facility]) (test code = TESTED AT [place] [id number] 1537) [facility], [address]: Manager Long Term Care/Techni stephanie ID = [id number] for HELENE MITCHELL POCT-GLUCOSE [id number] 16:38:00 Test Item Value Reference Range Interpretation Comments POC-GLUCOSE METER 214 mg/dL 70-110 H : TESTED A T [facility] 6720 ([facility]) (test code [facility], = 1538) [address]: Manager Long Term Care/Techni stephanie ID = [id number] for WILS ON, SHASTANIE POCT-GLUCOSE [id number] 11:59:00 Test Item Value Reference Range Interpretation Comments POC-GLUCOSE METER 267 mg/dL 70-110 H : TESTED A T [facility] 6720 ([facility]) (test code [facility], = 1538) [address]: Manager Long Term Care/Techni stephanie ID = [id number] for WILS ON, SHASTANIE POCT-GLUCOSE [id number] 09:20:00 Test Item Value Reference Range Interpretation Comments POC-GLUCOSE METER 211 mg/dL 70-110 H : TESTED A T [facility] 6720 (AKER) (test code [facility], = 1538) [address]: Manager Long Term Care/Techni stephanie ID = [id number] for WILS ON, SHASTANIE POCT-GLUCOSE [id number] 09:12:00 Test Item Value Reference Range Interpretation Comments POC-GLUCOSE METER 244 mg/dL 70-110 H : TESTED A T [facility] 6720 ([facility]) (test code = [facility] Mandy [facility], 1538) [address]: Manager Long Term Care/Techni stephanie ID = [id number] for ROCCO PEÑA (Verónica)MACY BASIC METABOLIC [id number] 07:31:00 Test Item Value Reference Range Interpretation Comments SODIUM (BEAKER) 132 meq/L 136-145 L (test code = 381) POTASSIUM (BEAKER) 4.3 meq/L 3.5-5.1 (test code = 379) CHLORIDE (BEAKER) 91 meq/L 98-107 L (test code = 382) CO2 (BEAKER) (test 34 meq/L 22-29 H code = 355) BLOOD UREA NITROGEN 20 mg/dL 7-21 (BEAKER) (test code = 354) CREATININE (BEAKER) 1.11 mg/dL 0.57-1.25 (test code = 358) GLUCOSE RANDOM 225 mg/dL 70-105 H (BEAKER) (test code = 652) CALCIUM (BEAKER) 9.4 mg/dL 8.4-10.2 (test code = 697) EGFR (BEAKER) (test 49 mL/min/1.73 ESTIMA JOSE GFR IS code = 1092) sq m NOT ACCURATE CREATININE CLEARANCE IN PREDICTING GLOMERULAR FILTRATION RATE . ESTIMATED GFR I S NOT APPLICABLE FOR DIALYSIS PATIEN TS. Manager Long Term Care ID - GREGGHEPATIC FUNCTION [id number] 07:31:00 Test Item Value Reference Range Interpretation Comments TOTAL PROTEIN (BEAKER) (test code = 7.8 gm/dL 6.0-8.3 770) ALBUMIN (BEAKER) (test code = 1145) 3.3 g/dL 3.5-5.0 L BILIRUBIN TOTAL (BEAKER) (test code 1.1 mg/dL 0.2-1.2 = 377) BILIRUBIN DIRECT (BEAKER) (test 0.8 mg/dL 0.1-0.5 H code = 706) ALKALINE PHOSPHATASE (BEAKER) (test 154 U/L 40-150 H code = 346) AST (SGOT) (BEAKER) (test code = 35 U/L 5-34 H 353) ALT (SGPT) (BEAKER) (test code = 78 U/L 6-55 H 347) Manager Long Term Care ID - ROSIANGPOCT-GLUCOSE [id number] 21:48:00 Test Item Value Reference Range Interpretation Comments POC-GLUCOSE METER 322 mg/dL 70-110 H : TESTED A T [facility] 6720 (BEAKER) (test code = [facility], 1538) [address]: Manager Long Term Care/Techni stephanie ID = [id number] for CR POOL VALLE BASIC METABOLIC [id number] 06:49:00 Test Item Value Reference Range Interpretation Comments SODIUM (BEAKER) 136 meq/L 136-145 (test code = 381) POTASSIUM (BEAKER) 4.7 meq/L 3.5-5.1 (test code = 379) CHLORIDE (BEAKER) 93 meq/L 98-107 L (test code = 382) CO2 (BEAKER) (test 33 meq/L 22-29 H code = 355) BLOOD UREA NITROGEN 20 mg/dL 7-21 (BEAKER) (test code = 354) CREATININE (BEAKER) 0.93 mg/dL 0.57-1.25 (test code = 358) GLUCOSE RANDOM 148 mg/dL 70-105 H (BEAKER) (test code = 652) CALCIUM (BEAKER) 8.8 mg/dL 8.4-10.2 (test code = 697) EGFR (BEAKER) (test 61 mL/min/1.73 ESTIMA JOSE GFR IS code = 1092) sq m NOT ACCURATE CREATININE CLEARANCE IN PREDICTING GLOMERULAR FILTRATION RATE . ESTIMATED GFR I S NOT APPLICABLE FOR DIALYSIS PATIEN TS. Manager Long Term Care ID - EDASIHEPATIC FUNCTION [id number] 06:49:00 Test Item Value Reference Range Interpretation Comments TOTAL PROTEIN (BEAKER) (test code = 7.5 gm/dL 6.0-8.3 770) ALBUMIN (BEAKER) (test code = 1145) 3.1 g/dL 3.5-5.0 L BILIRUBIN TOTAL (BEAKER) (test code 0.9 mg/dL 0.2-1.2 = 377) BILIRUBIN DIRECT (BEAKER) (test 0.6 mg/dL 0.1-0.5 H code = 706) ALKALINE PHOSPHATASE (BEAKER) (test 167 U/L 40-150 H code = 346) AST (SGOT) (BEAKER) (test code = 45 U/L 5-34 H 353) ALT (SGPT) (BEAKER) (test code = 109 U/L 6-55 H 347) Manager Long Term Care ID - EDASIPOCT-GLUCOSE [id number] 22:17:00 Test Item Value Reference Range Interpretation Comments POC-GLUCOSE METER 195 mg/dL 70-110 H : TESTED A T [facility] 6720 (BEAKER) (test code = JULIO Galvan [facility], 1538) [address]: Manager Long Term Care/Techni stephanie ID = [id number] for CHIKI SMITH POCT-GLUCOSE [id number] 14:05:00 Test Item Value Reference Range Interpretation Comments POC-GLUCOSE METER 298 mg/dL 70-110 H : TESTED A T [facility] 6720 (BEAKER) (test code [facility], = 1538) [address]: Manager Long Term Care/Techni stephanie ID = [id number] for TAHIRA LAINEZ SARS-COV2/RT-PCR ([facility])2020-01-04 13:22:00 Test Item Value Reference Range Interpretation Comments SARS-COV2/RT-PCR (test Negative Not Detected, Negative, code = 3243789) See external report for linked test SARS-COV-2 PERFORMING LAB [facility] (test code = 3609373) Negative result for this test determines that [...] individuals suspected of COVID-19 by their healthcare provider.This test [...] justifying the authorization of the emergency use ofin vitro diagnostic tests for detection and/or diagnosis of COVID-19 is terminated under Section 564(b)(2) of the Act or the EUA is revoked under Section 564(g) of the Act.Fact Sheet for Healthcare Prov iders:https://www.[employer]/sites/default/files/product/documents/Fact_Sheet_HC _Fhjuxuqwx_Pzzr_QFIG-UvN-3.pdfFact Sheet for Healthcare Patients:https://www.[employer]/sites/default/files/product/docume nts/Grup_Luaoc_Esncqliu_Qnho_OFFV-DxF-7.pdfPerforming Laboratory:[facility].[place], [place] [address]XTGQB METABOLIC PANEL 2020-01-04 06:01:00 Test Item Value Reference Range Interpretation Comments SODIUM (BEAKER) 134 meq/L 136-145 L (test code = 381) POTASSIUM (BEAKER) 4.6 meq/L 3.5-5.1 (test code = 379) CHLORIDE (BEAKER) 95 meq/L 98-107 L (test code = 382) CO2 (BEAKER) (test 32 meq/L 22-29 H code = 355) BLOOD UREA NITROGEN 19 mg/dL 7-21 (BEAKER) (test code = 354) CREATININE (BEAKER) 0.92 mg/dL 0.57-1.25 (test code = 358) GLUCOSE RANDOM 253 mg/dL 70-105 H (BEAKER) (test code = 652) CALCIUM (BEAKER) 8.2 mg/dL 8.4-10.2 L (test code = 697) EGFR (BEAKER) (test 61 mL/min/1.73 ESTIMA JOSE GFR IS code = 1092) sq m NOT ACCURATE CREATININE CLEARANCE IN PREDICTING GLOMERULAR FILTRATION RATE . ESTIMATED GFR I S NOT APPLICABLE FOR DIALYSIS PATIEN TS. Manager Long Term Care ID - PEYMAN EPATIC FUNCTION [id number] 06:01:00 Test Item Value Reference Range Interpretation Comments TOTAL PROTEIN (BEAKER) (test code = 6.7 gm/dL 6.0-8.3 770) ALBUMIN (BEAKER) (test code = 1145) 2.9 g/dL 3.5-5.0 L BILIRUBIN TOTAL (BEAKER) (test code 0.8 mg/dL 0.2-1.2 = 377) BILIRUBIN DIRECT (BEAKER) (test 0.6 mg/dL 0.1-0.5 H code = 706) ALKALINE PHOSPHATASE (BEAKER) (test 164 U/L 40-150 H code = 346) AST (SGOT) (BEAKER) (test code = 44 U/L 5-34 H 353) ALT (SGPT) (BEAKER) (test code = 129 U/L 6-55 H 347) Manager Long Term Care ID - PEYMAN MPOCT-GLUCOSE [id number] 21:13:00 Test Item Value Reference Range Interpretation Comments POC-GLUCOSE METER 222 mg/dL 70-110 H : TESTED A T [facility] 6720 (BEAKER) (test code = [facility], 1538) [address]: Manager Long Term Care/Techni stephanie ID = [id number] for LUIS CARLOS SERVIN POCT-GLUCOSE [id number] 16:51:00 Test Item Value Reference Range Interpretation Comments POC-GLUCOSE METER 231 mg/dL 70-110 H : TESTED A T [facility] 6720 (BEAKER) (test code [facility], = 1538) [address]: Manager Long Term Care/Techni stephanie ID = [id number] for WILS ON, SHASTANIE POCT-GLUCOSE [id number] 11:39:00 Test Item Value Reference Range Interpretation Comments POC-GLUCOSE METER 160 mg/dL 70-110 H : TESTED A T [facility] 6720 (BEAKER) (test code [facility], = 1538) [address]: Manager Long Term Care/Techni stephanie ID = [id number] for WILS ON, SHASTANIE POCT-GLUCOSE [id number] 08:03:00 Test Item Value Reference Range Interpretation Comments POC-GLUCOSE METER 99 mg/dL 70-110 : TESTED A T [facility] 6720 (BEAKER) (test code = [facility], 1538) [address]: Manager Long Term Care/Techni stephanie ID = [id number] for WILS ON, SHASTANIE BASIC METABOLIC [id number] 06:14:00 Test Item Value Reference Range Interpretation Comments SODIUM (BEAKER) 135 meq/L 136-145 L (test code = 381) POTASSIUM (BEAKER) 4.4 meq/L 3.5-5.1 (test code = 379) CHLORIDE (BEAKER) 96 meq/L 98-107 L (test code = 382) CO2 (BEAKER) (test 32 meq/L 22-29 H code = 355) BLOOD UREA NITROGEN 15 mg/dL 7-21 (BEAKER) (test code = 354) CREATININE (BEAKER) 0.79 mg/dL 0.57-1.25 (test code = 358) GLUCOSE RANDOM 102 mg/dL 70-105 (BEAKER) (test code = 652) CALCIUM (BEAKER) 8.3 mg/dL 8.4-10.2 L (test code = 697) EGFR (BEAKER) (test 73 mL/min/1.73 ESTIMA JOSE GFR IS code = 1092) sq m NOT ACCURATE CREATININE CLEARANCE IN PREDICTING GLOMERULAR FILTRATION RATE . ESTIMATED GFR I S NOT APPLICABLE FOR DIALYSIS PATIEN TS. Manager Long Term Care ID - CHELEAYA LHEPATIC FUNCTION [id number] 06:14:00 Test Item Value Reference Range Interpretation Comments TOTAL PROTEIN (BEAKER) (test code = 7.2 gm/dL 6.0-8.3 770) ALBUMIN (BEAKER) (test code = 1145) 3.0 g/dL 3.5-5.0 L BILIRUBIN TOTAL (BEAKER) (test code 1.0 mg/dL 0.2-1.2 = 377) BILIRUBIN DIRECT (BEAKER) (test 0.7 mg/dL 0.1-0.5 H code = 706) ALKALINE PHOSPHATASE (BEAKER) (test 154 U/L 40-150 H code = 346) AST (SGOT) (BEAKER) (test code = 62 U/L 5-34 H 353) ALT (SGPT) (BEAKER) (test code = 181 U/L 6-55 H 347) Manager Long Term Care ID - JENNIFER LPOCT-GLUCOSE [id number] 20:29:00 Test Item Value Reference Range Interpretation Comments POC-GLUCOSE METER 270 mg/dL 70-110 H : TESTED A T [facility] 6720 (BEAKER) (test code = [facility] [place] [place], 1538) [address]: Manager Long Term Care/Techni stephanie ID = [id number] for Ilda Kong POCT-GLUCOSE [id number] 16:47:00 Test Item Value Reference Range Interpretation Comments POC-GLUCOSE METER 276 mg/dL 70-110 H : TESTED A T [facility] 6720 (BEAKER) (test code [facility], = 1538) [address]: Manager Long Term Care/Techni stephanei ID = [id number] for WILS ON, MARINASTPOPE POCT-GLUCOSE [id number] 12:08:00 Test Item Value Reference Range Interpretation Comments POC-GLUCOSE METER 326 mg/dL 70-110 H : TESTED A T [facility] 6720 (BEAKER) (test code [facility], = 1538) [address]: Manager Long Term Care/Techni stephanie ID = [id number] for WILS ON, SHASTANIE POCT-GLUCOSE [id number] 08:27:00 Test Item Value Reference Range Interpretation Comments POC-GLUCOSE METER 313 mg/dL 70-110 H : TESTED A T [facility] 6720 (BEAKER) (test code [facility], = 1538) [address]: Manager Long Term Care/Techni stephanie ID = [id number] for WILS ON, SHASTANIE BASIC METABOLIC [id number] 05:26:00 Test Item Value Reference Range Interpretation Comments SODIUM (BEAKER) 134 meq/L 136-145 L (test code = 381) POTASSIUM (BEAKER) 4.6 meq/L 3.5-5.1 (test code = 379) CHLORIDE (BEAKER) 98 meq/L 98-107 (test code = 382) CO2 (BEAKER) (test 28 meq/L 22-29 code = 355) BLOOD UREA NITROGEN 21 mg/dL 7-21 (BEAKER) (test code = 354) CREATININE (BEAKER) 0.89 mg/dL 0.57-1.25 (test code = 358) GLUCOSE RANDOM 332 mg/dL 70-105 H (BEAKER) (test code = 652) CALCIUM (BEAKER) 7.9 mg/dL 8.4-10.2 L (test code = 697) EGFR (BEAKER) (test 64 mL/min/1.73 ESTIMA JOSE GFR IS code = 1092) sq m NOT ACCURATE CREATININE CLEARANCE IN PREDICTING GLOMERULAR FILTRATION RATE . ESTIMATED GFR I S NOT APPLICABLE FOR DIALYSIS PATIEN TS. HEPATIC FUNCTION [id number] 05:24:00 Test Item Value Reference Range Interpretation Comments TOTAL PROTEIN (BEAKER) (test code = 6.6 gm/dL 6.0-8.3 770) ALBUMIN (BEAKER) (test code = 1145) 2.8 g/dL 3.5-5.0 L BILIRUBIN TOTAL (BEAKER) (test code 0.9 mg/dL 0.2-1.2 = 377) BILIRUBIN DIRECT (BEAKER) (test 0.6 mg/dL 0.1-0.5 H code = 706) ALKALINE PHOSPHATASE (BEAKER) (test 173 U/L 40-150 H code = 346) AST (SGOT) (BEAKER) (test code = 82 U/L 5-34 H 353) ALT (SGPT) (BEAKER) (test code = 217 U/L 6-55 H 347) CBC W/PLT COUNT & AUTO [id number] 04:51:00 Test Item Value Reference Range Interpretation Comments WHITE BLOOD CELL COUNT (BEAKER) 8.1 K/ L 3.5-10.5 (test code = 775) RED BLOOD CELL COUNT (BEAKER) 3.92 M/ L 3.93-5.22 L (test code = 761) HEMOGLOBIN (BEAKER) (test code = 10.6 GM/DL 11.2-15.7 L 410) HEMATOCRIT (BEAKER) (test code = 36.0 % 34.1-44.9 411) MEAN CORPUSCULAR VOLUME (BEAKER) 91.8 fL 79.4-94.8 (test code = 753) MEAN CORPUSCULAR HEMOGLOBIN 27.0 pg 25.6-32.2 (BEAKER) (test code = 751) MEAN CORPUSCULAR HEMOGLOBIN CONC 29.4 GM/DL 32.2-35.5 L (BEAKER) (test code = 752) RED CELL DISTRIBUTION WIDTH 18.8 % 11.7-14.4 H (BEAKER) (test code = 412) PLATELET COUNT (BEAKER) (test 229 K/CU MM 150-450 code = 756) MEAN PLATELET VOLUME (BEAKER) 9.7 fL 9.4-12.3 (test code = 754) NUCLEATED RED BLOOD CELLS 0 /100 WBC 0-0 (BEAKER) (test code = 413) NEUTROPHILS RELATIVE PERCENT 69 % (BEAKER) (test code = 429) LYMPHOCYTES RELATIVE PERCENT 16 % (BEAKER) (test code = 430) MONOCYTES RELATIVE PERCENT 8 % (BEAKER) (test code = 431) EOSINOPHILS RELATIVE PERCENT 3 % (BEAKER) (test code = 432) BASOPHILS RELATIVE PERCENT 1 % (BEAKER) (test code = 437) NEUTROPHILS ABSOLUTE COUNT 5.61 K/ L 1.56-6.13 (BEAKER) (test code = 670) LYMPHOCYTES ABSOLUTE COUNT 1.26 K/ L 1.18-3.74 (BEAKER) (test code = 414) MONOCYTES ABSOLUTE COUNT (BEAKER) 0.67 K/ L 0.24-0.36 H (test code = 415) EOSINOPHILS ABSOLUTE COUNT 0.23 K/ L 0.04-0.36 (BEAKER) (test code = 416) BASOPHILS ABSOLUTE COUNT (BEAKER) 0.07 K/ L 0.01-0.08 (test code = 417) IMMATURE GRANULOCYTES-RELATIVE 3 % 0-1 H PERCENT (BEAKER) (test code = 2801) POCT-GLUCOSE [id number] 20:24:00 Test Item Value Reference Range Interpretation Comments POC-GLUCOSE METER 262 mg/dL 70-110 H : TESTED A T [facility] 6720 (BEAKER) (test code = [facility], 1538) [address]: Manager Long Term Care/Techni stephanie ID = [id number] for BAILEE HUYNH TTIgor POCT-GLUCOSE [id number] 16:50:00 Test Item Value Reference Range Interpretation Comments POC-GLUCOSE METER 324 mg/dL 70-110 H : TESTED A T [facility] 6720 (BEAKER) (test code [facility], = 1538) 56[address]: Manager Long Term Care/Techni stephanie ID = [id number] for TAHIRA LAINEZ PUL PERF IMAGING, [id number] 16:11:00Unlisted Reason for Exam - Click Yes and Enter Reason Below->NoFINAL REPORT PROCEDURE: LUNG SCAN - perfusion only CPT CODE: 00630 INDICATION: Pulmonary hypertension suspected PROTOCOL: 2.03 mCi of Tc-99m MAA was injected intravenously, and stat ic perfusion images were obtained in multiple projections. Ventilation imaging was not performed dueto COVID precautions. FINDINGS: There is a small subsegmental defect in the left superior lung. There is a large non segmental defect in the left posterior lung. There is an enlarged cardiac silhouette. IMPRESSION: 1. Low probability of acute pulmonary embolization. 2. There is an enlarged cardiac silhouette and a nonsegmental defect in the left posterior lung which may represent fluid. Signed: Bekah Cortes Verified Date/Time: 01/01/2020 16:11:39 Reading Location: [address] Reading Room POCT- GLUCOSE [id number] 12:12:00 Test Item Value Reference Range Interpretation Comments POC-GLUCOSE METER 309 mg/dL 70-110 H : TESTED A T [facility] 6720 (BEAKER) (test code [facility], = 1538) [address]: Manager Long Term Care/Techni stephanie ID = [id number] for TAHIRA LAINEZ POCT-GLUCOSE [id number] 07:50:00 Test Item Value Reference Range Interpretation Comments POC-GLUCOSE METER 209 mg/dL 70-110 H : TESTED A T [facility] 6720 (BEAKER) (test code [facility], = 1538) 19096: Manager Long Term Care/Techni stephanie ID = [id number] for TAHIRA LAINEZ HEPATIC FUNCTION [id number] 05:17:00 Test Item Value Reference Range Interpretation Comments TOTAL PROTEIN (BEAKER) (test code = 6.7 gm/dL 6.0-8.3 770) ALBUMIN (BEAKER) (test code = 1145) 2.8 g/dL 3.5-5.0 L BILIRUBIN TOTAL (BEAKER) (test code 0.9 mg/dL 0.2-1.2 = 377) BILIRUBIN DIRECT (BEAKER) (test 0.7 mg/dL 0.1-0.5 H code = 706) ALKALINE PHOSPHATASE (BEAKER) (test 148 U/L 40-150 code = 346) AST (SGOT) (BEAKER) (test code = 143 U/L 5-34 H 353) ALT (SGPT) (BEAKER) (test code = 288 U/L 6-55 H 347) Manager Long Term Care ID - EDASIBASIC METABOLIC [id number] 05:17:00 Test Item Value Reference Range Interpretation Comments SODIUM (BEAKER) 131 meq/L 136-145 L (test code = 381) POTASSIUM (BEAKER) 4.7 meq/L 3.5-5.1 (test code = 379) CHLORIDE (BEAKER) 95 meq/L 98-107 L (test code = 382) CO2 (BEAKER) (test 27 meq/L 22-29 code = 355) BLOOD UREA NITROGEN 20 mg/dL 7-21 (BEAKER) (test code = 354) CREATININE (BEAKER) 0.91 mg/dL 0.57-1.25 (test code = 358) GLUCOSE RANDOM 294 mg/dL 70-105 H (BEAKER) (test code = 652) CALCIUM (BEAKER) 8.1 mg/dL 8.4-10.2 L (test code = 697) EGFR (BEAKER) (test 62 mL/min/1.73 ESTIMA JOSE GFR IS code = 1092) sq m NOT ACCURATE CREATININE CLEARANCE IN PREDICTING GLOMERULAR FILTRATION RATE . ESTIMATED GFR I S NOT APPLICABLE FOR DIALYSIS PATIEN TS. Manager Long Term Care ID - EDASICBC W/PLT COUNT & AUTO [id number] 04:41:00 Test Item Value Reference Range Interpretation Comments WHITE BLOOD CELL COUNT (BEAKER) 8.0 K/ L 3.5-10.5 (test code = 775) RED BLOOD CELL COUNT (BEAKER) 3.75 M/ L 3.93-5.22 L (test code = 761) HEMOGLOBIN (BEAKER) (test code = 9.9 GM/DL 11.2-15.7 L 410) HEMATOCRIT (BEAKER) (test code = 34.3 % 34.1-44.9 411) MEAN CORPUSCULAR VOLUME (BEAKER) 91.5 fL 79.4-94.8 (test code = 753) MEAN CORPUSCULAR HEMOGLOBIN 26.4 pg 25.6-32.2 (BEAKER) (test code = 751) MEAN CORPUSCULAR HEMOGLOBIN CONC 28.9 GM/DL 32.2-35.5 L (BEAKER) (test code = 752) RED CELL DISTRIBUTION WIDTH 18.6 % 11.7-14.4 H (BEAKER) (test code = 412) PLATELET COUNT (BEAKER) (test 198 K/CU MM 150-450 code = 756) MEAN PLATELET VOLUME (BEAKER) 9.6 fL 9.4-12.3 (test code = 754) NUCLEATED RED BLOOD CELLS 0 /100 WBC 0-0 (BEAKER) (test code = 413) NEUTROPHILS RELATIVE PERCENT 70 % (BEAKER) (test code = 429) LYMPHOCYTES RELATIVE PERCENT 14 % (BEAKER) (test code = 430) MONOCYTES RELATIVE PERCENT 9 % (BEAKER) (test code = 431) EOSINOPHILS RELATIVE PERCENT 2 % (BEAKER) (test code = 432) BASOPHILS RELATIVE PERCENT 1 % (BEAKER) (test code = 437) NEUTROPHILS ABSOLUTE COUNT 5.56 K/ L 1.56-6.13 (BEAKER) (test code = 670) LYMPHOCYTES ABSOLUTE COUNT 1.11 K/ L 1.18-3.74 L (BEAKER) (test code = 414) MONOCYTES ABSOLUTE COUNT (BEAKER) 0.69 K/ L 0.24-0.36 H (test code = 415) EOSINOPHILS ABSOLUTE COUNT 0.14 K/ L 0.04-0.36 (BEAKER) (test code = 416) BASOPHILS ABSOLUTE COUNT (BEAKER) 0.08 K/ L 0.01-0.08 (test code = 417) IMMATURE GRANULOCYTES-RELATIVE 5 % 0-1 H PERCENT (BEAKER) (test code = 2801) POCT-GLUCOSE [id number] 21:54:00 Test Item Value Reference Range Interpretation Comments POC-GLUCOSE METER 302 mg/dL 70-110 H : TESTED A T [facility] 6720 (BEAKER) (test code = [facility], 153) [id number]: Manager Long Term Care/Techni stephanie ID = [id number] for BAILEE HUYNH TTIgor POCT-GLUCOSE [id number] 16:51:00 Test Item Value Reference Range Interpretation Comments POC-GLUCOSE METER 229 mg/dL 70-110 H : TESTED A T [facility] 6720 (BEAKER) (test code = [facility], 153) [id number]: Manager Long Term Care/Techni stephanie ID = [id number] for FLORIN EDUARDO NESS PROTEIN ELECTROPHORESIS, [id number] 15:11:00 Test Item Value Reference Range Interpretation Comments ALBUMIN FRACTION 2.8 g/dL 3.5-5.5 L (BEAKER) (test code = 405) ALPHA 1 FRACTION 0.4 g/dL 0.2-0.4 (BEAKER) (test code = 389) ALPHA 2 FRACTION 0.7 g/dL 0.5-0.9 (BEAKER) (test code = 390) BETA FRACTION (BEAKER) 1.4 g/dL 0.6-1.1 H (test code = 392) GAMMA GLOBULIN 1.3 g/dL 0.7-1.7 FRACTION (BEAKER) (test code = 391) INTERPRETATION-119 Decreased albumin, (BEAKER) (test code = consistent with renal 2615) dysfunction. Beta-gamma bridging is present, suggestive of hepatic damage/dysfunction as well. No monoclonal bands detected. [id number] Yesika Nieves MD (BEAKER) (test code = (electronic signature) 2616) PROTEIN TOTAL SERUM, 6.7 gm/dL 6.0-8.3 SPEP (BEAKER) (test code = 3078) Manager Long Term Care ID - PEYMAN MPOCT-GLUCOSE [id number] 13:27:00 Test Item Value Reference Range Interpretation Comments POC-GLUCOSE METER 232 mg/dL 70-110 H : TESTED A T [facility] 6720 (BEAKER) (test code = [facility], 1538) 46972: Manager Long Term Care/Techni stephanie ID = [id number] for MARCOS BAEZ [id number] 12:47:00 Test Item Value Reference Range Interpretation Comments ACTIVATED CLOTTING TIME 153 sec : 74 -137 seconds, (BEAKER) (test code = Baseli ne: TESTED AT 441) [facility] [address] [facility], 770 30: Manager Long Term Care/Techni stephanie ID = [id number] for YESY WEST BLOOD GAS, [id number] 12:46:00 Test Item Value Reference Range Interpretation Comments PH ARTERIAL (BEAKER) (test code = 7.41 7.35-7.45 383) PCO2 ARTERIAL (BEAKER) (test code 49 mmHg 35-45 H = 384) PO2 ARTERIAL (BEAKER) (test code = 179 mmHg 80-90 H 385) O2 SATURATION ARTERIAL (BEAKER) 99.2 % 96.0-97.0 H (test code = 386) HCO3 ARTERIAL (BEAKER) (test code 30 mmol/L 21-29 H = 388) BASE EXCESS ARTERIAL (BEAKER) 4.1 mmol/L -2.0-3.0 H (test code = 387) PATIENT TEMPERATURE (BEAKER) (test 36.7 C code = 1818) FIO2 (BEAKER) (test code = 1819) 32.0 % CBC W/PLT COUNT & AUTO [id number] 11:40:00 Test Item Value Reference Range Interpretation Comments WHITE BLOOD CELL COUNT (BEAKER) 9.3 K/ L 3.5-10.5 (test code = 775) RED BLOOD CELL COUNT (BEAKER) 4.13 M/ L 3.93-5.22 (test code = 761) HEMOGLOBIN (BEAKER) (test code = 11.0 GM/DL 11.2-15.7 L 410) HEMATOCRIT (BEAKER) (test code = 37.7 % 34.1-44.9 411) MEAN CORPUSCULAR VOLUME (BEAKER) 91.3 fL 79.4-94.8 (test code = 753) MEAN CORPUSCULAR HEMOGLOBIN 26.6 pg 25.6-32.2 (BEAKER) (test code = 751) MEAN CORPUSCULAR HEMOGLOBIN CONC 29.2 GM/DL 32.2-35.5 L (BEAKER) (test code = 752) RED CELL DISTRIBUTION WIDTH 19.4 % 11.7-14.4 H (BEAKER) (test code = 412) PLATELET COUNT (BEAKER) (test 217 K/CU MM 150-450 code = 756) MEAN PLATELET VOLUME (BEAKER) 9.6 fL 9.4-12.3 (test code = 754) NUCLEATED RED BLOOD CELLS 0 /100 WBC 0-0 (BEAKER) (test code = 413) (CELLAVISION MANUAL DIFF)2019-12-31 11:40:00 Test Item Value Reference Range Interpretation Comments NEUTROPHILS - REL 76 % (CELLAVISION)(BEAKER) (test code = 2816) LYMPHOCYTES - REL 12 % (CELLAVISION)(BEAKER) (test code = 2817) MONOCYTES - REL 5 % (CELLAVISION)(BEAKER) (test code = 2818) EOSINOPHILS - REL 2 % (CELLAVISION)(BEAKER) (test code = 2819) METAMYELOCYTES - REL 1 % 0-0 H (CELLAVISION)(BEAKER) (test code = 2821) MYELOCYTES - REL 3 % 0-0 H (CELLAVISION)(BEAKER) (test code = 2822) ATYPICAL LYMPHOCYTES - REL 1 % 0-0 H (CELLAVISION)(BEAKER) (test code = 2829) NEUTROPHILS - ABS 7.07 K/ul 1.56-6.13 H (CELLAVISION)(BEAKER) (test code = 2830) LYMPHOCYTES - ABS 1.12 K/ul 1.18-3.74 L (CELLAVISION)(BEAKER) (test code = 2831) MONOCYTES - ABS 0.47 K/uL 0.24-0.36 H (CELLAVISION)(BEAKER) (test code = 2832) EOSINOPHILS - ABS 0.19 K/uL 0.04-0.36 (CELLAVISION)(BEAKER) (test code = 2834) METAMYELOCYTES - ABS 0.09 K/uL 0.00-0.00 H (CELLAVISION)(BEAKER) (test code = 2836) MYELOCYTES-ABS 0.28 K/uL 0.00-0.00 H (CELLAVISION)(BEAKER) (test code = 2837) ATYPICAL LYMPHOCYTES - ABS 0.09 K/uL 0.00-0.00 H (CELLAVISION)(BEAKER) (test code = 2858) TOTAL COUNTED (BEAKER) (test code = 100 1351) SMUDGE CELLS (BEAKER) (test code = Present 1371) GIANT PLATELETS (BEAKER) (test code Present = 313) POLYCHROMATOPHILLIC RBCS(BEAKER) 1+ few (test code = 478) HYPOCHROMIA (BEAKER) (test code = 1+ few 963) ANISOCYTOSIS (BEAKER) (test code = 1+ few 961) MICROCYTES (BEAKER) (test code = 1+ few 965) PLATELET CONCENTRATION Adequate (CELLAVISION)(BEAKER) (test code = 3438) Manager Long Term Care ID - Stephanie Ware comments: Slide comments:HEPATIC FUNCTION PANEL 2019-12-31 07:32:00 Test Item Value Reference Range Interpretation Comments TOTAL PROTEIN (BEAKER) (test code = 7.3 gm/dL 6.0-8.3 770) ALBUMIN (BEAKER) (test code = 1145) 3.1 g/dL 3.5-5.0 L BILIRUBIN TOTAL (BEAKER) (test code 1.0 mg/dL 0.2-1.2 = 377) BILIRUBIN DIRECT (BEAKER) (test 0.8 mg/dL 0.1-0.5 H code = 706) ALKALINE PHOSPHATASE (BEAKER) (test 167 U/L 40-150 H code = 346) AST (SGOT) (BEAKER) (test code = 277 U/L 5-34 H 353) ALT (SGPT) (BEAKER) (test code = 387 U/L 6-55 H 347) Manager Long Term Care ID - PEYMAN MBASIC METABOLIC [id number] 07:32:00 Test Item Value Reference Range Interpretation Comments SODIUM (BEAKER) 133 meq/L 136-145 L (test code = 381) POTASSIUM (BEAKER) 4.6 meq/L 3.5-5.1 (test code = 379) CHLORIDE (BEAKER) 95 meq/L 98-107 L (test code = 382) CO2 (BEAKER) (test 30 meq/L 22-29 H code = 355) BLOOD UREA NITROGEN 17 mg/dL 7-21 (BEAKER) (test code = 354) CREATININE (BEAKER) 0.99 mg/dL 0.57-1.25 (test code = 358) GLUCOSE RANDOM 282 mg/dL 70-105 H (BEAKER) (test code = 652) CALCIUM (BEAKER) 8.9 mg/dL 8.4-10.2 (test code = 697) EGFR (BEAKER) (test 56 mL/min/1.73 ESTIMA JOSE GFR IS code = 1092) sq m NOT ACCURATE CREATININE CLEARANCE IN PREDICTING GLOMERULAR FILTRATION RATE . ESTIMATED GFR I S NOT APPLICABLE FOR DIALYSIS PATIEN TS. Manager Long Term Care ID - PEYMAN MHEPARIN ASSAY - LOW MOLECULAR [id number] 06:47:00 Test Item Value Reference Range Interpretation Comments LOVENOX-ANTI 10A (BEAKER) (test 0.34 u/ml 0.60-2.00 L code = 1605) Anti-Factor 10-A Level (Heparin Assay for Low Molecular Weight Heparin)Monitoring Guidelines: Blood samples should be obtained 4 hours post subcutaneous injection (time of Peak level) Therapeutic Peak Levels: 0.6-1.0 units/mL twice daily enoxaparin 1.0-2.0 units/mL once daily enoxaparinRef: CHEST 2012;141:[id number] GAS, [id number] 06:19:00 Test Item Value Reference Range Interpretation Comments PH VENOUS (BEAKER) (test code = 7.40 7.32-7.42 701) PCO2 VENOUS (BEAKER) (test code = 57 mmHg 41-51 H 755) PO2 VENOUS (BEAKER) (test code = 35 mmHg 25-40 702) O2 SATURATION VENOUS (BEAKER) 66.0 % 40.0-70.0 (test code = 703) HCO3 VENOUS (BEAKER) (test code = 34 mmol/L 21-29 H 705) BASE EXCESS VENOUS (BEAKER) (test 7.6 mmol/L -2.0-3.0 H code = 704) PATIENT TEMPERATURE (BEAKER) (test 37.0 C code = 1818) FIO2 (BEAKER) (test code = 1819) 21.0 % POCT-GLUCOSE [id number] 06:07:00 Test Item Value Reference Range Interpretation Comments POC-GLUCOSE METER 256 mg/dL 70-110 H : TESTED A T [facility] 6720 (BEAKER) (test code = [facility], 1538) [address]: Manager Long Term Care/Techni stephanie ID = [id number] for HUYNH, BAILEE TTE POCT-GLUCOSE [id number] 21:55:00 Test Item Value Reference Range Interpretation Comments POC-GLUCOSE METER 229 mg/dL 70-110 H : TESTED A T [facility] 6720 (BEAKER) (test code = [facility], 1538) [address]: Manager Long Term Care/Techni stephanie ID = [id number] for HUYNH, BAILEE TTE RAD, CHEST, 1 VIEW, NON [id number] 16:52:00Reason for exam:- >dyspneaShould this be performed at the bedside?->YesFINAL REPORT EXAM: Chest one view COMPARISON: December 27, 2019 CLINICAL HISTORY: Dyspnea FINDINGS: There is persistent cardiomegaly. There is no evidence of pulmonary consolidation,pleural effusion, or pneumothorax. The regional osseous structures are unremarkable. Signed: Carlita Israelort Verified Date/Time: 12/30/2019 16:52:28 Reading Location: [facility] B1 C013W Consult Reading Room POCT- GLUCOSE [id number] 16:38:00 Test Item Value Reference Range Interpretation Comments POC-GLUCOSE METER 88 mg/dL 70-110 : TESTED A T [facility] 6720 (BEAKER) (test code = [facility], 1538) [address]: Manager Long Term Care/Techni stephanie ID = [id number] for NESS BRITTON PERIPHERAL BLOOD SMEAR - PATHOLOGIST [id number] 16:25:00 Test Item Value Reference Range Interpretation Comments PERIPHERAL SMR Mild normocytic REVIEW (BEAKER) normochromic anemia, (test code = 2640) moderate anisopoikilocytosis and polychromasia. Left shifted WBCs with occasional myeloid precursors. No blasts seen. Adequate platelets with essentially unremarkable morphology. [id number] Mirian Beck, 112 (BEAKER) (test M.D code = 2849) POCT-GLUCOSE [id number] 11:59:00 Test Item Value Reference Range Interpretation Comments POC-GLUCOSE METER 79 mg/dL 70-110 : TESTED A T [facility] 6720 (BEAKER) (test code = [facility], 1538) [address]: Manager Long Term Care/Techni stephanie ID = [id number] for NESS BRITTON PET/CT, CARDIAC PERF REST AND [id number] 10:39:00Reason for exam:->CAD FINAL REPORT PROCEDURE: MYOCARDIAL PERFUSION PET/CT IMAGING (Rest/Stress)CPT CODE: 87809 INDICATION: CAD, obesity BMI=39 CARDIOVASCULAR PROFILE:CAD History: [...] mCi of Rb-82 chloride was injected intravenously atpeak stress, and gated PET images were obtained. [...] Motion: Mild generalized LV hypokinesis (LVEF 46%).LV Volume: Not significantly changed from rest. IMPRESSION:1. Abnormal study.2. Abnormal myocardial perfusion. There is a medium size, mild severity, reversible perfus ion abnormality in the mid anterior, anteroseptal, and apical/periapical LV.3. Mildly decreased resting LVEF, which does not deteriorate with pharmacologic stress.4. Normal extracardiac tracer distribution.5. There is no prior study for comparison. Signed: David Porter MDReport Verified Date/Time: 12/30/2019 10:39:01 Reading Location: [address] Reading Room HEPARIN ASSAY - LOW MOLECULAR [id number] 08:53:00 Test Item Value Reference Range Interpretation Comments LOVENOX-ANTI 10A (BEAKER) (test 1.81 u/ml 0.60-2.00 code = 1605) Anti-Factor 10-A Level (Heparin Assay for Low Molecular Weight Heparin)Monitoring Guidelines: Blood samples should be obtained 4 hours post subcutaneous injection (time of Peak level) Therapeutic Peak Levels: 0.6-1.0 units/mL twice daily enoxaparin 1.0-2.0 units/mL once daily enoxaparinRef: CHEST 2012;141:[id number] W/PLT COUNT & AUTO [id number] 08:30:00 Test Item Value Reference Range Interpretation [...] RBCS(BEAKER) 1+ few (test code = 478) PROTHROMBIN [id number] 07:29:00 Test Item Value Reference Range Interpretation [...] is 2.5-3.5 for patients wiht mechanical heart valves.[id number] 07:04:00 Test Item Value Reference Range Interpretation Comments PHOSPHORUS (BEAKER) (test code = 2.8 mg/dL 2.3-4.7 604) Manager Long Term Care ID - PEYMAN [id number] 07:04:00 Test Item Value Reference Range Interpretation Comments MAGNESIUM (BEAKER) (test code = 1.8 mg/dL 1.6-2.6 627) Manager Long Term Care ID - PEYMAN MBASIC METABOLIC [id number] 07:04:00 Test Item Value Reference Range Interpretation [...] S NOT APPLICABLE FOR DIALYSIS PATIEN TS. Manager Long Term Care ID - PEYMAN MLIPID [id number] 07:04:00 Test Item Value Reference Range Interpretation Comments TRIGLYCERIDES (BEAKER) (test code = 88 mg/dL 540) CHOLESTEROL (BEAKER) (test code = 108 mg/dL 631) HDL CHOLESTEROL (BEAKER) (test code 15 mg/dL = 976) LDL CHOLESTEROL CALCULATED (BEAKER) 75 mg/dL (test code = 633) Triglyceride Reference Range: Low Risk <150 Borderline 150-199 High Risk 200- 499 Very High Risk >=500Cholesterol Reference Range: Low Risk <200 Borderline 200-239 High Risk >240HDL Cholesterol Reference Range: Low Risk >=60 High Risk <40LDL Cholesterol Reference Range: Optimal <100 Near Optimal 100-129 Borderline 130-159 High 160-189 Very High >=190 Manager Long Term Care ID - PEYMAN MHEPATIC FUNCTION [id number] 07:04:00 Test Item Value Reference Range Interpretation [...] code = 562 U/L 6-55 H 347) Manager Long Term Care ID - PEYMAN MLACTATE DEHYDROGENASE (LDH)2019-12-30 07:04:00 Test Item Value Reference Range Interpretation Comments LACTATE DEHYDROGENASE (BEAKER) (test 423 U/L 125-220 H code = 635) Manager Long Term Care ID - PEYMAN MCALCIUM, [id number] 06:33:00 Test Item Value Reference Range Interpretation Comments CALCIUM IONIZED (BEAKER) (test 1.15 mmol/L 1.12-1.27 code = 698) PH, BLOOD (BEAKER) (test code = 7.34 1810) POCT-GLUCOSE [id number] 20:49:00 Test Item Value Reference Range Interpretation Comments POC-GLUCOSE METER 221 mg/dL 70-110 H : [facility] ([facility]ER[facility] (test code = [place], 1538) [address]: Manager Long Term Care/Techni stephanie ID = [id number] for DANA BLAS POCT-GLUCOSE [id number] 16:45:00 Test Item Value Reference Range Interpretation Comments POC-GLUCOSE METER 242 mg/dL 70-110 H : TESTED A T [facility] 6720 (BEAKER) (test code = [facility], 1538) [address]84[address]: Manager Long Term Care/Techni stephanie ID = [id number] for JOHN WOODARD HEPATITIS B SURFACE [id number] 13:34:00 Test Item Value Reference Range Interpretation Comments HEPATITIS B SURFACE ANTIBODY < mIU/mL <8.0 (BEAKER) (test code = 647) Manager Long Term Care ID - PARKER CHEPATITIS B SURFACE [id number] 13:13:00 Test Item Value Reference Range Interpretation Comments HEPATITIS B SURFACE ANTIGEN (2) Nonreactive Nonreactive (BEAKER) (test code = 2585) Specimen is considered negative for HBsAg.HEPATITIS B CORE ANTIBODY, IGM 2019-12-29 13:13:00 Test Item Value Reference Range Interpretation Comments HEPATITIS B CORE IGM ANTIBODY Nonreactive Nonreactive (BEAKER) (test code = 645) Manager Long Term Care ID - PARKER CHEPATITIS A ANTIBODY, [id number] 13:13:00 Test Item Value Reference Range Interpretation Comments HEPATITIS A IGM ANTIBODY (BEAKER) Nonreactive Nonreactive (test code = 498) Manager Long Term Care ID - PARKER CPOCT-GLUCOSE [id number] 12:20:00 Test Item Value Reference Range Interpretation Comments POC-GLUCOSE METER 175 mg/dL 70-110 H : TESTED A T [facility] 6720 (BEAKER) (test code = [facility], 1538) [address]: Manager Long Term Care/Techni stephanie ID = [id number] for YAMILET JOHN CBC W/PLT COUNT & AUTO [id number] 11:32:00 Test Item Value Reference Range Interpretation [...] CONCENTRATION Adequate (CELLAVISION)(BEAKER) (test code = 3438) Manager Long Term Care ID - Mary OverholtUser comments: Slide comments:ANTI-NUCLEAR ANTIBODY (NAVI)2019-12-29 10:54:00 Test Item Value Reference Range Interpretation Comments ANTI-NUCLEAR ANTIBODY (NAVI) (BEAKER) Positive Negative A (test code = 418) Test performed by IFA method.NAVI TITER AND [id number] 10:54:00 Test Item Value Reference Range Interpretation Comments NAVI TITER (BEAKER) (test code = :160 1541) NAVI PATTERN (BEAKER) (test code = Homogeneous 1781) [id number] 08:30:00 Test Item Value Reference Range Interpretation Comments PHOSPHORUS (BEAKER) (test code = 2.1 mg/dL 2.3-4.7 L 604) Manager Long Term Care ID - PARKER [id number] 08:30:00 Test Item Value Reference Range Interpretation Comments MAGNESIUM (BEAKER) (test code = 2.0 mg/dL 1.6-2.6 627) Manager Long Term Care ID - PARKER CBASIC METABOLIC [id number] 08:30:00 Test Item Value Reference Range Interpretation [...] S NOT APPLICABLE FOR DIALYSIS PATIEN TS. Manager Long Term Care ID - PARKER CHEPATIC FUNCTION [id number] 08:30:00 Test Item Value Reference Range Interpretation [...] code = 688 U/L 6-55 H 347) Manager Long Term Care ID - PARKER CPOCT-GLUCOSE [id number] 08:02:00 Test Item Value Reference Range Interpretation Comments POC-GLUCOSE METER 88 mg/dL 70-110 : TESTED A T [facility] 6720 (BEAKER) (test code = [place], 1538) [address]: Manager Long Term Care/Techni stephanie ID = [id number] for JOHN WOODARD PROTHROMBIN [id number] 06:54:00 Test Item Value Reference Range Interpretation [...] is 2.5-3.5 for patients wiht mechanical heart valves.CALCIUM, [id number] 06:30:00 Test Item Value Reference Range Interpretation Comments CALCIUM IONIZED (BEAKER) (test 1.15 mmol/L 1.12-1.27 code = 698) PH, BLOOD (BEAKER) (test code = 7.36 1810) U/S, ABDOMINAL, WITH [id number] 23:22:00Reason for exam:->elevated AST/ALT, concern for underlying liver diseaseFINAL REPORT INDICATION: elevated AST/ALT, concern for underlying liver diseaseCOMPARISON: None TECHNIQUE: Real-time martin-scale transabdominal and color [...] cholecystitis. Trace right pleural effusion. Signed: [facility] Verified Date/Time: 12/28/2019 23:22:17 POCT-GLUCOSE [id number] 20:54:00 Test Item Value Reference Range Interpretation Comments POC-GLUCOSE METER 304 mg/dL 70-110 H : Notified RN/MD: (CADENCE) (test code = TESTED AT [facility] 6720 1538) [facility], [address]: Manager Long Term Care/Techni stephanie ID = [id number] for HELENE MITCHELL POCT-GLUCOSE [id number] 16:52:00 Test Item Value Reference Range Interpretation Comments POC-GLUCOSE METER 284 mg/dL 70-110 H : TESTED A T [facility] 6720 (CADENCE) (test code [facility], = 1538) [address]: Manager Long Term Care/Techni stephanie ID = [id number] for TAHIRA LAINEZ (CELLAVISION MANUAL DIFF)2019-12-28 15:12:00 [...] CONCENTRATION Adequate (CELLAVISION)(BEAKER) (test code = 3438) Manager Long Term Care ID - lorraine [place] comments: Slide comments:CBC W/PLT COUNT & AUTO [id number] 15:01:00 Test Item Value Reference Range Interpretation [...] WBC 0-0 (BEAKER) (test code = 413) SARS-COV2/RT-PCR ([facility])2019-12-28 12:48:00 Test Item Value Reference Range Interpretation Comments SARS-COV2/RT-PCR (test Negative Not Detected, Negative, code = 9528398) See external report for linked test SARS-COV-2 PERFORMING LAB [facility] JENNIFER (test code = 7047652) Negative result for this test determines that [...] individuals suspected of COVID-19 by their healthcare provider.This test [...] justifying the authorization of the emergency use ofin vitro diagnostic tests for detection and/or diagnosis of COVID-19 is terminated under Section 564(b)(2) of the Act or the EUA is revoked under Section 564(g) of the Act.Fact Sheet for Healthcare Prov iders:https://www.[employer].com/sites/default/files/product/documents/Fact_Sheet_HC _Uorzxaore_Qxql_PMDN-LiF-7.pdfFact Sheet for Healthcare Patients:https://www.[employer].com/sites/default/files/product/docume nts/Fawi_Ixjuq_Xtbmhpqe_Dnqv_KAUW-IuN-2.pdfPerforming Laboratory:[place] [address], [place] [address]GRHN-SPFYUAR METER 2019-12-28 11:48:00 Test Item Value Reference Range Interpretation Comments POC-GLUCOSE METER 339 mg/dL 70-110 H : TESTED A T [facility] 6720 (BEAKER) (test code [facility], = 1538) [address]: Manager Long Term Care/Techni stephanie ID = [id number] for TAHIRA LAINEZ POCT-GLUCOSE [id number] 08:47:00 Test Item Value Reference Range Interpretation Comments POC-GLUCOSE METER 304 mg/dL 70-110 H : TESTED A T [facility] 6720 (BEAKER) (test code [facility], = 1538) [address]: Manager Long Term Care/Techni stephanie ID = [id number] for TAHIRA LAINEZ HEMOGLOBIN [id number] 08:04:00 Test Item Value Reference Range Interpretation Comments HEMOGLOBIN A1C (BEAKER) (test code = 9.9 % 4.3-6.1 H 368) LIPID [id number] 07:05:00 Test Item Value Reference Range Interpretation Comments TRIGLYCERIDES (BEAKER) 109 mg/dL (test code = 540) CHOLESTEROL (BEAKER) 92 mg/dL (test code = 631) HDL CHOLESTEROL (BEAKER) < mg/dL (test code = 976) LDL CHOLESTEROL > mg/dL Unable to ca lculate CALCULATED (BEAKER) (test code = 633) Triglyceride Reference Range: Low Risk <150 Borderline 150-199 High Risk 200- 499 Very High Risk >=500Cholesterol Reference Range: Low Risk <200 Borderline 200-239 High Risk >240HDL Cholesterol Reference Range: Low Risk >=60 High Risk <40LDL Cholesterol Reference Range: Optimal <100 Near Optimal 100-129 Borderline 130-159 High 160-189 Very High >=190 Manager Long Term Care ID Quincy HENLEY [id number] 07:02:00 Test Item Value Reference Range Interpretation Comments PHOSPHORUS (BEAKER) (test code = 2.5 mg/dL 2.3-4.7 604) Manager Long Term Care ID Quincy HENLEY [id number] 07:02:00 Test Item Value Reference Range Interpretation Comments MAGNESIUM (BEAKER) (test code = 1.9 mg/dL 1.6-2.6 627) Manager Long Term Care ID Quincy HENLEY FBASIC METABOLIC [id number] 07:02:00 Test Item Value Reference Range Interpretation [...] S NOT APPLICABLE FOR DIALYSIS PATIEN TS. Manager Long Term Care ID Quincy LORY EPATIC FUNCTION [id number] 07:02:00 Test Item Value Reference Range Interpretation [...] code = 607 U/L 6-55 H 347) Manager Long Term Care ID - LORY FTROPONIN [id number] 06:56:00 Test Item Value Reference Range Interpretation [...] failure, acidosis, acute neurological disease, and persistent tachyarrhythmia.Manager Long Term Care ID - LORY FAMMONIA 2019-12-28 06:40:00 Test Item Value Reference Range Interpretation Comments AMMONIA (BEAKER) (test code = 348) 40 mol/L 18-72 Manager Long Term Care ID - LORY FCREATININE, RANDOM [id number] 04:54:00 Test Item Value Reference Range Interpretation Comments CREATININE URINE (BEAKER) (test 80.7 mg/dL code = 375) Reference Range: No NormalsOperator ID - DBSODIUM, RANDOM [id number] 04:54:00 Test Item Value Reference Range Interpretation Comments SODIUM URINE (BEAKER) (test code = 42 meq/L 243) Reference Range: No NormalsOperator ID - DBUREA NITROGEN, RANDOM [id number] 04:54:00 Test Item Value Reference Range Interpretation [...] Prior median sternotomy.Other: None. Signed: Shazia Gilbert MDReport Verified Date/Time: 12/28/2019 01:38:53 POCT-GLUCOSE [id number] 21:27:00 Test Item Value Reference Range Interpretation Comments POC-GLUCOSE METER 351 mg/dL 70-110 H : TESTED A T [facility] 6720 (BEAKER) (test code = [place], 1538) [address]: Manager Long Term Care/Techni stephanie ID = [id number] for BAILEE HUYNH TTE CBC W/PLT COUNT & AUTO [id number] 19:45:00 Test Item Value Reference Range Interpretation [...] (BEAKER) (test code = 2801) BASIC METABOLIC [id number] 19:30:00 Test Item Value Reference Range Interpretation [...] S NOT APPLICABLE FOR DIALYSIS PATIEN TS. Manager Long Term Care ID - SHARLAROPONIN [id number] 19:25:00 Test Item Value Reference Range Interpretation [...] failure, acidosis, acute neurological disease, and persistent tachyarrhythmia.Manager Long Term Care ID - GREGGB-TYPE NATRIURETIC FACTOR (BNP)2019-12-27 19:24:00 Test Item Value Reference Range Interpretation Comments B-TYPE NATRIURETIC PEPTIDE (BEAKER) 291 pg/mL 0-100 H (test code = 700) Manager Long Term Care ID - TONIEPATIC FUNCTION [id number] 19:20:00 Test Item Value Reference Range Interpretation [...] code = 651 U/L 6-55 H 347) Manager Long Term Care ID - JAY JAYOCT-GLUCOSE [id number] 18:34:00 Test Item Value Reference Range Interpretation Comments POC-GLUCOSE METER 300 mg/dL 70-110 H : TESTED A T [facility] 6720 (BEAKER) (test code = [place] [place], 1538) [address]: Manager Long Term Care/Techni stephanie ID = [id number] for RACHNA RODRIGUEZ (Verónica)SANJAY GLUCOSE BEDSIDE [id number] 09:56:00 Test Item Value Reference Range Interpretation Comments GLUCOSE BEDSIDE TESTING (test code 225 mg/dL 70-110 H = GLUBED) GLUCOSE BEDSIDE [id number] 23:00:00 Test Item Value Reference Range Interpretation Comments GLUCOSE BEDSIDE TESTING (test code 301 mg/dL 70-110 H = GLUBED) GLUCOSE BEDSIDE [id number] 16:43:00 Test Item Value Reference Range Interpretation Comments GLUCOSE BEDSIDE TESTING (test code 243 mg/dL 70-110 H = GLUBED) GLUCOSE BEDSIDE [id number] 12:30:00 Test Item Value Reference Range Interpretation Comments GLUCOSE BEDSIDE TESTING (test code 195 mg/dL 70-110 H = GLUBED) BASIC METABOLIC [id number] 10:40:00 Test Item Value Reference Range Interpretation [...] 8.2 MG/DL 8.5-10.1 L CA) GLUCOSE BEDSIDE [id number] 08:59:00 Test Item Value Reference Range Interpretation Comments GLUCOSE BEDSIDE TESTING (test code 119 mg/dL 70-110 H = GLUBED) GLUCOSE BEDSIDE [id number] 21:36:00 Test Item Value Reference Range Interpretation Comments GLUCOSE BEDSIDE TESTING (test code 146 mg/dL 70-110 H = GLUBED) GLUCOSE BEDSIDE [id number] 16:11:00 Test Item Value Reference Range Interpretation Comments GLUCOSE BEDSIDE TESTING (test code 191 mg/dL 70-110 H = GLUBED) - XR CHEST 1 [id number] 15:39:00 Name: AILYN COBIAN [facility] : 1955 Age/S: 64 / F [id number] [address] Unit #: [id number] Loc: [place] [address] Phys: Raleigh Roy MD Acct: [id number] Dis Date: Status: ADM IN PHONE #: [phone] Exam Date: 11/09/2019 3168 FAX #: Reason: FALL EXAMS: CPT: [id number] XR CHEST 1 V 75632 Fluoro Time: DAP (Gy m2): Air Kerma [...] hilar prominence without evidence of focal consolidation. at 1539 Reported and signed by: Mike Ojeda M.D. CC: Raleigh Roy MD PAGE 1 Signed Report Name: [facility]AN [facility] 1955 Age/S: 64 /F [id number] [address] Unit #: [id number] Loc: [place] [address] Phys: Raleigh Roy MD Acct: [id number] Dis Date: Status: ADM IN PHONE #: [phone] Exam Date: 11/09/2019 1515 FAX #: Reason: FALLEXAMS: CPT: [id number] XR CHEST 1 V 41134 Fluoro Time: DAP (Gy m2): Air Kerma (mGy): <Continued> Technologist: Mary Ann Cortes, RT(R)(CT); Jodi Baker, RT(R) [facility] Date/Time: 11/09/2019 (1539) t.[email or web address] Orig Print D/T: S: 11/09/2019 (2758) PAGE 2 Signed Report- XR HIP W/PEL UNI 2+V [id number] 15:34:00 Name: AILYN COBIAN [facility] : 1955 Age/S: 64 / F [address] Unit #: [id number] Loc: [place] [address] Phys: Raleigh Roy MD Acct: [id number] Dis Date: Status: ADM IN PHONE #: [phone] Exam Date: 11/09/2019 1526 FAX #: Reason: HIP PAIN EXAMS: CPT: [id number] XR HIP W/PEL UNI 2+[place] [address] Fluoro Time: DAP (Gy m2): Air Kerma [...] with MRI. at 1534 Reported and signed by: Burton Cid M.D. CC: Raleigh Roy MD PAGE 1 Signed Report Name: AILYN COBIAN [facility] : 1955 Age/S: 64 / F [address]: [id number] Loc: [place] [address] Phys: Raleigh Roy MD Acct: [id number] Dis Date: Status: ADM IN PHONE #: [phone] Exam Date: 11/09/2019 1526 FAX #: Reason: HIP PAIN EXAMS: CPT: [id number] XR HIP W/PEL UNI 2+[place] [address] Fluoro Time: DAP (Gy m2): Air Kerma (mGy): <Continued> Te chnologist: Mary Ann Cortes, RT(R)(CT); Jodi Baker, RT(R) [facility] Date/Time: 11/09/2019 (1534) [email or web address].[email or web address] Orig Print D/T: S: 11/09/2019 (1538) PAGE 2 Signed Report- XR FACIAL BONES <[id number] 15:30:00 Name: AILYN COBIAN [facility] : 1955 Age/S: 64 / F [address] Unit #: [id number] Loc: [place] [address] Phys: Raleigh Roy MD Acct: [id number] Dis Date: Status: ADM IN PHONE #: [phone] Exam Date: 11/09/2019 1520 FAX #: Reason: FALL EXAMS: CPT: [id number] XR FACIAL BONES <3V 94262 Fluoro Time: DAP (Gy m2): Air Kerma [...] PAGE 1 Signed Report [facility]: [facility] 1955 Age/S: 64 / F [address] [facility] [address] Unit #: [id number] Loc: [place] [address] Phys: Raleigh Roy MD Acct: [id number] Dis Date: Status: ADM IN PHONE #: [phone] Exam Date: 11/09/2019 1520 FAX #: Reason: FALL EXAMS: CPT: [id number] XR FACIAL BONES <3V 64936 Fluoro Time: DAP (Gy m2): Air Kerma (mGy): <Continued> Technologist: Mary Ann Cortes, RT(R)(CT); Jodi Baker RT(R) [facility] Date/Time: 11/09/2019 (1530) GregAH26 PAGE 2 Signed ReportGLUCOSE BEDSIDE [id number] 12:06:00 Test Item Value Reference Range Interpretation Comments GLUCOSE BEDSIDE TESTING (test code 252 mg/dL 70-110 H = GLUBED) BASIC METABOLIC [id number] 07:58:00 Test Item Value Reference Range Interpretation [...] CA) 7.8 MG/DL 8.5-10.1 L CBC W/AUTO [id number] 07:37:00 Test Item Value Reference Range Interpretation [...] NO DIFF/SCN CRITERIA = MDIFF) GLUCOSE BEDSIDE [id number] 01:26:00 Test Item Value Reference Range Interpretation Comments GLUCOSE BEDSIDE TESTING (test code 281 mg/dL 70-110 H = GLUBED) GLUCOSE BEDSIDE [id number] 19:27:00 Test Item Value Reference Range Interpretation Comments GLUCOSE BEDSIDE TESTING (test code 233 mg/dL 70-110 H = GLUBED) GLUCOSE BEDSIDE [id number] 17:43:00 Test Item Value Reference Range Interpretation Comments GLUCOSE BEDSIDE TESTING (test code 245 mg/dL 70-110 H = GLUBED) VANCOMYCIN [id number] 10:58:00 Test Item Value Reference Range Interpretation Comments VANCOMYCIN TROUGH (test code = 17.9 mcG/ML 10-20 N VANCT) GLUCOSE BEDSIDE [id number] 08:14:00 Test Item Value Reference Range Interpretation Comments GLUCOSE BEDSIDE TESTING (test code 147 mg/dL 70-110 H = GLUBED) BASIC METABOLIC [id number] 04:07:00 Test Item Value Reference Range Interpretation [...] CA) 8.2 MG/DL 8.5-10.1 L CBC W/AUTO [id number] 03:46:00 Test Item Value Reference Range Interpretation [...] NO DIFF/SCN CRITERIA = MDIFF) GLUCOSE BEDSIDE [id number] 21:11:00 Test Item Value Reference Range Interpretation Comments GLUCOSE BEDSIDE TESTING (test code 195 mg/dL 70-110 H = GLUBED) VANCOMYCIN [id number] 20:29:00 Test Item Value Reference Range Interpretation Comments VANCOMYCIN TROUGH (test code = 22.6 mcG/ML 10-20 H VANCT) - US RETRO [id number] 18:55:00 Name: AILYN COBIAN [facility] : 1955 Age/S: 64 / F [address] Unit #: [id number] Loc: [place] [address] Phys: Giorgi Mejia DO Acct: [id number] Dis Date: Status: ADM IN PHONE #: [phone] Exam Date: 11/07/2019 1810 FAX #: Reason: GI on CKD vs CKD 3 EXAMS: CPT: [id number] US RETRO LTD [address] Examination: Ultrasound retroperitoneum limited Location code: H60 Comparison: None Discussion: Clinical history is remarkable for kidney disease. Right kidney measures 11.6 x 5.3 x 8.3 cm and left kidney measures 12.0 x 5.1 x 6.1 cm. Both kidneys are normal in echotexture. No echogenic renal calculi identified. There is no evidence for hydronephrosis. The bladder is not clearlyvisualized. Impression: 1. Normal ultrasound examination of kidneys. at 1855 Reported and signed by: Kevin Duran M.D. CC: Raleigh Roy MD; Giorgi Mejia DO Technologist: Fanny Eid Trnscb Date/Time: 11/07/2019 (1854) GregVR5 PAGE 1Signed Report Name: AILYN COBIAN : 1955 Age/S: 64 / F [address] Unit #: [id number] Loc: [place] [address] Phys: Giorgi Mejia DO Acct: [id number] Dis Date: Status: ADM IN PHONE #: [phone] Exam Date: 11/07/2019 181 FAX #: Reason: GI on CKD vs CKD 3 EXAMS: CPT: [id number] [facility] [address] <Continued> Orig Print D/T: S: 11/07/2019 (1857) Probe: PAGE 2Signed ReportGLUCOSE BEDSIDE [id number] 17:04:00 Test Item Value Reference Range Interpretation Comments GLUCOSE BEDSIDE TESTING (test code 174 mg/dL 70-110 H = GLUBED) PARATHYROID HORMONE [id number] 14:11:00 Test Item Value Reference Range Interpretation Comments PARATHYROID HORMONE INTACT (test 324.5 PG/ML 26-72 H code = PARAI) GLUCOSE BEDSIDE [id number] 12:20:00 Test Item Value Reference Range Interpretation Comments GLUCOSE BEDSIDE TESTING (test code 175 mg/dL 70-110 H = GLUBED) GLUCOSE BEDSIDE [id number] 08:16:00 Test Item Value Reference Range Interpretation Comments GLUCOSE BEDSIDE TESTING (test code 134 mg/dL 70-110 H = GLUBED) BASIC METABOLIC [id number] 06:31:00 Test Item Value Reference Range Interpretation [...] CA) 8.5 MG/DL 8.5-10.1 N CBC W/AUTO [id number] 06:14:00 Test Item Value Reference Range Interpretation [...] NO DIFF/SCN CRITERIA = MDIFF) GLUCOSE BEDSIDE [id number] 19:58:00 Test Item Value Reference Range Interpretation Comments GLUCOSE BEDSIDE TESTING (test code = 79 mg/dL 70-110 N GLUBED) BASIC METABOLIC [id number] 19:14:00 Test Item Value Reference Range Interpretation [...] CA) 8.3 MG/DL 8.5-10.1 L CBC W/AUTO [id number] 19:06:00 Test Item Value Reference Range Interpretation [...] DIFF/SCN CRITERIA = MDIFF) COVID 19 INHOUSE [id number] 18:15:00 Test Item Value Reference Range Interpretation Comments COVID 19 INHOUSE AG NEGATIVE Negative Per manu facturer, (test code = negative result s should [id number]) be treated aspr esumptive and, if inconsi stent with clinical signs andsymptoms or necessary for patient man agement, should betested with an alternative mol ecular assay. Negative resultsdo not preclude SA RS-CoV-2 infection and s hould not be usedas the s ole basis for patient man agement decisions. Nega tive results should be considered in t he context of apatient's r ecent exposures, hist ory, presence of cli nicalsigns and symptoms co nsistent with COVID-19. Emergent procedure? YESGLUCOSE BEDSIDE [id number] 17:32:00 Test Item Value Reference Range Interpretation Comments GLUCOSE BEDSIDE TESTING (test code 126 mg/dL 70-110 H = GLUBED) GLUCOSE BEDSIDE [id number] 12:07:00 Test Item Value Reference Range Interpretation Comments GLUCOSE BEDSIDE TESTING (test code 291 mg/dL 70-110 H = GLUBED) - XR CHEST 1 [id number] 11:47:00 Name: AILYN COBIAN [facility] [place] : 1955 Age/S: 64 / F [address] [address] Unit #: [id number] Loc: [place] [address] Phys: Raleigh Roy MD Acct: [id number] Dis Date: Status: ADM IN PHONE#: [phone] Exam Date: 10/30/2019 1140 FAX #: Reason: chest pain EXAMS: CPT: [id number] XR CHEST1 V 87408 Fluoro Time: DAP (Gy m2): Air Kerma (mGy): EXAM: - XR CHEST 1 V Location code:C3 HISTORY:chest pain COMPARISON: 08/20/2019 FINDINGS: Single AP view of the chest is provided. Cardiomegaly with median sternotomy changes are similar. The lungs are clear of focal consolidation. No effusion, pneumothorax, or acute osseous abnormality. IMPRESSION: 1. Unchanged cardiomegaly. at 1147 Reported and signed by: Sherman Muniz MD CC: Raleigh Roy MD PAGE 1 Signed Report Name: AILYN COBIAN [facility] [place] : 1955 Age/S: 64 / F [address] Unit #: [id number] Loc: [place] [address] Phys: Raleigh Roy GMNatalie Acct: [id number] Dis Date: Status: ADM IN PHONE #: [phone] Exam Date: 10/30/2019 1140 FAX#: Reason: chest pain EXAMS: CPT: [id number] XR CHEST 1 V 82519 Fluoro Time: DAP (Gy m2): Air Kerma (mGy): (Continued) Technologist: Kwesi Montalvo RT(R)(CT) Trnscb Date/Time: 10/30/2019 (1147) [email or web address] Orig Print D/T: S: 10/30/2019 (2620) PAGE 2 Signed ReportGLUCOSE BEDSIDE [id number] 07:48:00 Test Item Value Reference Range Interpretation Comments GLUCOSE BEDSIDE TESTING (test code 255 mg/dL 70-110 H = GLUBED) BASIC METABOLIC [id number] 06:38:00 Test Item Value Reference Range Interpretation [...] code = CA) 8.2 MG/DL 8.5-10.1 L [id number] 06:38:00 Test Item Value Reference Range Interpretation Comments MAGNESIUM (test code = MAG) 2.1 MG/DL 1.8-2.4 N CBC W/AUTO [id number] 06:25:00 Test Item Value Reference Range Interpretation [...] NO DIFF/SCN CRITERIA = MDIFF) GLUCOSE BEDSIDE [id number] 20:19:00 Test Item Value Reference Range Interpretation Comments GLUCOSE BEDSIDE TESTING (test code 115 mg/dL 70-110 H = GLUBED) GLUCOSE BEDSIDE [id number] 17:06:00 Test Item Value Reference Range Interpretation Comments GLUCOSE BEDSIDE TESTING (test code 120 mg/dL 70-110 H = GLUBED) GLUCOSE BEDSIDE [id number] 12:08:00 Test Item Value Reference Range Interpretation Comments GLUCOSE BEDSIDE TESTING (test code 211 mg/dL 70-110 H = GLUBED) [id number] 10:09:00 Test Item Value Reference Range Interpretation Comments VANCOMYCIN (test code = VANCO) 27.1 mcG/ML 5-40 N GLUCOSE BEDSIDE [id number] 08:07:00 Test Item Value Reference Range Interpretation Comments GLUCOSE BEDSIDE TESTING (test code 273 mg/dL 70-110 H = GLUBED) CBC W/AUTO [id number] 05:11:00 Test Item Value Reference Range Interpretation [...] NT WITH AUTO DIFFERENTI AL. BASIC METABOLIC [id number] 05:04:00 Test Item Value Reference Range Interpretation [...] code = CA) 8.5 MG/DL 8.5-10.1 N [id number] 05:04:00 Test Item Value Reference Range Interpretation Comments MAGNESIUM (test code = MAG) 2.2 MG/DL 1.8-2.4 N CBC W/AUTO [id number] 04:43:00 Test Item Value Reference Range Interpretation [...] code = DIFF/SCN CRITERIA MDIFF) GLUCOSE BEDSIDE [id number] 20:39:00 Test Item Value Reference Range Interpretation Comments GLUCOSE BEDSIDE TESTING (test code 195 mg/dL 70-110 H = GLUBED) GLUCOSE BEDSIDE [id number] 17:53:00 Test Item Value Reference Range Interpretation Comments GLUCOSE BEDSIDE TESTING (test code 205 mg/dL 70-110 H = GLUBED) - US RETRO [id number] 14:10:00 [facility] 1955 Age/S: 64 / F [address] [address] Unit #: [id number] Loc: [place] [address] Phys: Giorgi Mejia DO Acct: [id number] Dis Date: Status: ADM IN PHONE#: [phone] Exam Date: 10/28/2019 1325 FAX #: Reason: GI on CKD vs CKD EXAMS: CPT: [id number] [place] [address] Location of dictation: B2 ULTRASOUND OF THE KIDNEYS: CLINICAL HISTORY: Acute on chronic versus chronic renal disease COMPARISON: None TECHNIQUE: Multiple high resolution images were obtained through the kidneys using a multifrequency curved transducer. FINDINGS: The bilateral kidneysare normal in size, shape, and echogenicity. The right kidney measures 10.2 x 4.6 x 4.3 cm. The leftkidney measures 10.8 x 5 x 4.7 cm. [...] Technologist: Carli Lakhani Trnscb Date/Time: 10/28/2019 (1410) [facility]SW[facility] PAGE 1 Signed Report Name: AILYN COBIAN : 1955 Age/S: 64 / F [address] [address] Unit #: [id number] Loc: [place] [address] Phys: Giorgi Mejia Acct: [id number] DisDate: Status: ADM IN PHONE #: [phone] Exam Date: 10/28/2019 1325 FAX #: Reason: GI on CKD vs CKD EXAMS: CPT: [id number] [facility] [address] (Continued) Orig Print D/T: S: 10/28/2019 (1413) Probe: PAGE 2 Signed ReportGLUCOSE BEDSIDE [id number] 12:33:00 Test Item Value Reference Range Interpretation Comments GLUCOSE BEDSIDE TESTING (test code 243 mg/dL 70-110 H = GLUBED) GLYCOSYLATED HEMOGLOBIN [id number] 10:34:00 Test Item Value Reference Range Interpretation [...] 1.22 Ratio 1.48-3.22 Avg L BASIC METABOLIC [id number] 05:40:00 Test Item Value Reference Range Interpretation [...] CA) 8.5 MG/DL 8.5-10.1 N BASIC METABOLIC [id number] 05:33:00 Test Item Value Reference Range Interpretation [...] CA) 8.5 MG/DL 8.5-10.1 N CBC W/AUTO [id number] 05:27:00 Test Item Value Reference Range Interpretation [...] (test code NO DIFF/SCN CRITERIA = MDIFF) [id number] 01:51:00 Test Item Value Reference Range Interpretation [...] may valerie yby method. Completed by Nursing: [id number] 22:58:00 Test Item Value Reference Range Interpretation [...] Completed by Nursing: NOCOVID 19 Asymptomatic IH [id number] 21:23:00 Test Item Value Reference Range Interpretation [...] sole basis for patient man agement decisions. Nega tive results should be considered in t he context of apat ient's recent exposure s, history, presen ce of clinicalsigns a nd symptoms consis tent with COVID-19. Emergent procedure? NORHEUMATOID FACTOR [id number] 17:08:00 Test Item Value Reference Range Interpretation Comments RHEUMATOID FACTOR <10.0 IU/mL 0.0-13.9 Performed At: SCREEN (test code = [facility] [address]) [place], [place] [id number] Gaytan MD Ph:[phone] ANTINUCLEAR ANTIBODIES [id number] 17:08:00 Test Item Value Reference Range Interpretation Comments NAVI TITER (test code Negative () Negati ve <1:80 = ANATITR) Borderline 1:80 Positive >1:80Performed At: [facility] [address] [id number] Gaytan MD Ph:[phone] NEUTROPHIL CYTOPLASMIC [id number] 17:08:00 Test Item Value Reference Range Interpretation [...] be based solely onANCA IFA results. The In ternational ANCA Group Consensusrecomm ends follow up testing of p ositive sera with both AL-3 and MPO-ANCA enzyme immunoassays. A s many as 5% serumsamples are positive only b y EIA. Ref. AM J Clin Pnsbdi1805;111: 507-513. ATYPICAL ANCA <1:20 titer Neg:<1:20 The atypical p ANCA pattern (test code = has been observ ed in ANCACOM) asignificant pe rcentage of patients with u lcerative colitis,primary sclerosing cholangitis and autoimmune hepatitis.Perfo rmed At: [facility] [address] [id number] ra Apple THOMPSON Ph:[phone] RHEUMATOID FACTOR [id number] 13:10:00 Test Item Value Reference Range Interpretation Comments RHEUMATOID FACTOR <10.0 IU/mL 0.0-13.9 Performed At: SCREEN (test code = [facility] [place] [address] [address]) [place], [place] [id number] Gaytan MD Ph:[phone] ANTINUCLEAR ANTIBODIES [id number] 13:10:00 Test Item Value Reference Range Interpretation Comments NAVI TITER (test code Negative () Negati ve <1:80 = ANATITR) Borderline 1:80 Positive >1:80Performed At: [facility] [address] [id number] Gaytan MD Ph:[phone] NEUTROPHIL CYTOPLASMIC [id number] 13:10:00 Test Item Value Reference Range Interpretation Comments AB ANTI-NEUTROPHIL CYTO C (test code = NEUTCABC) AB ANTI-NEUTROPHIL CYTO P (test code = NEUTCAB-P) ATYPICAL ANCA (test code = ANCACOM) RHEUMATOID FACTOR [id number] 09:11:00 Test Item Value Reference Range Interpretation Comments RHEUMATOID FACTOR <10.0 IU/mL 0.0-13.9 Performed At: HD SCREEN (test code = [facility] [address]) [place], [place] [id number] Jeff Gaytan MD Ph:[phone] ANTINUCLEAR ANTIBODIES [id number] 09:11:00 Test Item Value Reference Range Interpretation Comments NAVI TITER (test code = ANATITR) NEUTROPHIL CYTOPLASMIC [id number] 09:11:00 Test Item Value Reference Range Interpretation Comments AB ANTI-NEUTROPHIL CYTO C (test code = NEUTCABC) AB ANTI-NEUTROPHIL CYTO P (test code = NEUTCAB-P) ATYPICAL ANCA (test code = ANCACOM) GLUCOSE BEDSIDE [id number] 08:06:00 Test Item Value Reference Range Interpretation Comments GLUCOSE BEDSIDE TESTING (test code 159 mg/dL 70-110 H = GLUBED) GLUCOSE BEDSIDE [id number] 06:24:00 Test Item Value Reference Range Interpretation Comments GLUCOSE BEDSIDE TESTING (test code 137 mg/dL 70-110 H = GLUBED) BASIC METABOLIC [id number] 06:18:00 Test Item Value Reference Range Interpretation [...] CA) 8.3 MG/DL 8.5-10.1 L CBC W/AUTO [id number] 06:02:00 Test Item Value Reference Range Interpretation [...] NO DIFF/SCN CRITERIA = MDIFF) GLUCOSE BEDSIDE [id number] 05:41:00 Test Item Value Reference Range Interpretation Comments GLUCOSE BEDSIDE TESTING (test code = 74 mg/dL 70-110 N GLUBED) GLUCOSE BEDSIDE [id number] 20:51:00 Test Item Value Reference Range Interpretation Comments GLUCOSE BEDSIDE TESTING (test code 207 mg/dL 70-110 H = GLUBED) GLUCOSE BEDSIDE [id number] 19:59:00 Test Item Value Reference Range Interpretation Comments GLUCOSE BEDSIDE TESTING (test code 185 mg/dL 70-110 H = GLUBED) GLUCOSE BEDSIDE [id number] 19:51:00 Test Item Value Reference Range Interpretation Comments GLUCOSE BEDSIDE TESTING (test code 174 mg/dL 70-110 H = GLUBED) GLUCOSE BEDSIDE [id number] 12:01:00 Test Item Value Reference Range Interpretation Comments GLUCOSE BEDSIDE TESTING (test code = 99 mg/dL 70-110 N GLUBED) GLUCOSE BEDSIDE [id number] 10:01:00 Test Item Value Reference Range Interpretation Comments GLUCOSE BEDSIDE TESTING (test code = 96 mg/dL 70-110 N GLUBED) BASIC METABOLIC [id number] 06:37:00 Test Item Value Reference Range Interpretation [...] CA) 8.6 MG/DL 8.5-10.1 N CBC W/AUTO [id number] 06:31:00 Test Item Value Reference Range Interpretation [...] NO DIFF/SCN CRITERIA = MDIFF) GLUCOSE BEDSIDE [id number] 21:06:00 Test Item Value Reference Range Interpretation Comments GLUCOSE BEDSIDE TESTING (test code 315 mg/dL 70-110 H = GLUBED) GLUCOSE BEDSIDE [id number] 17:01:00 Test Item Value Reference Range Interpretation Comments GLUCOSE BEDSIDE TESTING (test code 368 mg/dL 70-110 H = GLUBED) VANCOMYCIN [id number] 16:41:00 Test Item Value Reference Range Interpretation Comments VANCOMYCIN TROUGH (test code = 20.4 mcG/ML 10-20 H VANCT) GLUCOSE BEDSIDE [id number] 11:27:00 Test Item Value Reference Range Interpretation Comments GLUCOSE BEDSIDE TESTING (test code 128 mg/dL 70-110 H = GLUBED) BASIC METABOLIC [id number] 08:49:00 Test Item Value Reference Range Interpretation [...] CA) 8.9 MG/DL 8.5-10.1 N GLUCOSE BEDSIDE [id number] 08:31:00 Test Item Value Reference Range Interpretation Comments GLUCOSE BEDSIDE TESTING (test code 160 mg/dL 70-110 H = GLUBED) CBC W/AUTO [id number] 08:26:00 Test Item Value Reference Range Interpretation [...] NO DIFF/SCN CRITERIA = MDIFF) GLUCOSE BEDSIDE [id number] 21:15:00 Test Item Value Reference Range Interpretation Comments GLUCOSE BEDSIDE TESTING (test code 224 mg/dL 70-110 H = GLUBED) GLUCOSE BEDSIDE [id number] 16:30:00 Test Item Value Reference Range Interpretation Comments GLUCOSE BEDSIDE TESTING (test code 255 mg/dL 70-110 H = GLUBED) GLUCOSE BEDSIDE [id number] 11:42:00 Test Item Value Reference Range Interpretation Comments GLUCOSE BEDSIDE TESTING (test code 402 mg/dL 70-110 H = GLUBED) BASIC METABOLIC [id number] 10:46:00 Test Item Value Reference Range Interpretation [...] CA) 8.6 MG/DL 8.5-10.1 N GLUCOSE BEDSIDE [id number] 07:58:00 Test Item Value Reference Range Interpretation Comments GLUCOSE BEDSIDE TESTING (test code 333 mg/dL 70-110 H = GLUBED) GLUCOSE BEDSIDE [id number] 21:32:00 Test Item Value Reference Range Interpretation Comments GLUCOSE BEDSIDE TESTING (test code 417 mg/dL 70-110 H = GLUBED) GLUCOSE BEDSIDE [id number] 18:48:00 Test Item Value Reference Range Interpretation Comments GLUCOSE BEDSIDE TESTING (test code 435 mg/dL 70-110 H = GLUBED) GLUCOSE BEDSIDE [id number] 16:42:00 Test Item Value Reference Range Interpretation Comments GLUCOSE BEDSIDE TESTING (test code 513 mg/dL 70-110 HH = GLUBED) GLUCOSE BEDSIDE [id number] 11:33:00 Test Item Value Reference Range Interpretation Comments GLUCOSE BEDSIDE TESTING (test code 448 mg/dL 70-110 H = GLUBED) GLUCOSE BEDSIDE [id number] 07:53:00 Test Item Value Reference Range Interpretation Comments GLUCOSE BEDSIDE TESTING (test code 411 mg/dL 70-110 H = GLUBED) BASIC METABOLIC [id number] 04:10:00 Test Item Value Reference Range Interpretation [...] CA) 8.7 MG/DL 8.5-10.1 N CBC W/AUTO [id number] 03:58:00 Test Item Value Reference Range Interpretation [...] NO DIFF/SCN CRITERIA = MDIFF) GLUCOSE BEDSIDE [id number] 22:08:00 Test Item Value Reference Range Interpretation Comments GLUCOSE BEDSIDE TESTING (test code 266 mg/dL 70-110 H = GLUBED) GLUCOSE BEDSIDE [id number] 22:07:00 Test Item Value Reference Range Interpretation Comments GLUCOSE BEDSIDE TESTING (test code 362 mg/dL 70-110 H = GLUBED) GLUCOSE BEDSIDE [id number] 16:43:00 Test Item Value Reference Range Interpretation Comments GLUCOSE BEDSIDE TESTING (test code 187 mg/dL 70-110 H = GLUBED) - DUP VEIN UNI [id number] 12:41:00 Name: AILYN COBIAN [facility] : 1955 Age/S: 64 / F [address] [address] Unit #: [id number] Loc: [place] [address] Phys: Anatoly River MD Acct: [id number] Dis Date: Status: ADM IN PHONE #: [phone] Exam Date: 08/23/2019 1222 FAX #: Reason: RULE OUT DVT EXAMS: CPT: [id number] [place] [address] Doppler venous ultrasound right lower extremity History: [...] vein. This finding could be due to chronic thrombus along the wall of these veins. No occlusive thrombus is identified. [id number] Reported and signed by: Bryan Green M.D. CC: Anatoly River MD; Disha Duncan MD Technologist: Fanny Eid [facility] Date/Time: 08/23/2019 (7589) GregPMT PAGE 1 Signed Report Name: AILYN COBIAN : 1955 Age/S: 64 / F [address] [address] Unit #: [id number] Loc: [place] [address] Phys: Anatoly River MD Acct: [id number] Dis Date: Status: ADM IN PHONE #: [phone] Exam Date: 08/23/2019 1222 FAX #: Reason: RULE OUT DVT EXAMS: CPT: [id number] [place] [address] (Continued) Orig Print D/T: S: 08/23/2019 (1244) Probe: PAGE 2 Signed ReportGLUCOSE BEDSIDE TESTING 2019-08-23 11:32:00 Test Item Value Reference Range Interpretation Comments GLUCOSE BEDSIDE TESTING (test code 229 mg/dL 70-110 H = GLUBED) GLUCOSE BEDSIDE [id number] 08:03:00 Test Item Value Reference Range Interpretation Comments GLUCOSE BEDSIDE TESTING (test code 166 mg/dL 70-110 H = GLUBED) BASIC METABOLIC [id number] 06:43:00 Test Item Value Reference Range Interpretation [...] CA) 8.3 MG/DL 8.5-10.1 L CBC W/AUTO [id number] 06:35:00 Test Item Value Reference Range Interpretation [...] NO DIFF/SCN CRITERIA = MDIFF) GLUCOSE BEDSIDE [id number] 00:48:00 Test Item Value Reference Range Interpretation Comments GLUCOSE BEDSIDE TESTING (test code 252 mg/dL 70-110 H = GLUBED) GLUCOSE BEDSIDE [id number] 16:23:00 Test Item Value Reference Range Interpretation Comments GLUCOSE BEDSIDE TESTING (test code 147 mg/dL 70-110 H = GLUBED) GLUCOSE BEDSIDE [id number] 12:16:00 Test Item Value Reference Range Interpretation Comments GLUCOSE BEDSIDE TESTING (test code 286 mg/dL 70-110 H = GLUBED) GLUCOSE BEDSIDE [id number] 07:57:00 Test Item Value Reference Range Interpretation Comments GLUCOSE BEDSIDE TESTING (test code 197 mg/dL 70-110 H = GLUBED) BASIC METABOLIC [id number] 06:27:00 Test Item Value Reference Range Interpretation [...] CA) 8.1 MG/DL 8.5-10.1 L CBC W/AUTO [id number] 06:23:00 Test Item Value Reference Range Interpretation [...] NO DIFF/SCN CRITERIA = MDIFF) GLUCOSE BEDSIDE [id number] 22:45:00 Test Item Value Reference Range Interpretation Comments GLUCOSE BEDSIDE TESTING (test code 255 mg/dL 70-110 H = GLUBED) GLUCOSE BEDSIDE [id number] 16:53:00 Test Item Value Reference Range Interpretation Comments GLUCOSE BEDSIDE TESTING (test code 283 mg/dL 70-110 H = GLUBED) GLUCOSE BEDSIDE [id number] 12:20:00 Test Item Value Reference Range Interpretation Comments GLUCOSE BEDSIDE TESTING (test code 250 mg/dL 70-110 H = GLUBED) GLUCOSE BEDSIDE [id number] 10:22:00 Test Item Value Reference Range Interpretation Comments GLUCOSE BEDSIDE TESTING (test code 233 mg/dL 70-110 H = GLUBED) GLUCOSE BEDSIDE [id number] 07:57:00 Test Item Value Reference Range Interpretation Comments GLUCOSE BEDSIDE TESTING (test code 231 mg/dL 70-110 H = GLUBED) BASIC METABOLIC [id number] 06:22:00 Test Item Value Reference Range Interpretation [...] CA) 8.1 MG/DL 8.5-10.1 L CBC W/AUTO [id number] 06:10:00 Test Item Value Reference Range Interpretation [...] NO DIFF/SCN CRITERIA = MDIFF) GLUCOSE BEDSIDE [id number] 21:00:00 Test Item Value Reference Range Interpretation Comments GLUCOSE BEDSIDE TESTING (test code 313 mg/dL 70-110 H = GLUBED) GLUCOSE BEDSIDE [id number] 18:43:00 Test Item Value Reference Range Interpretation Comments GLUCOSE BEDSIDE TESTING (test code 396 mg/dL 70-110 H = GLUBED) GLUCOSE BEDSIDE [id number] 17:26:00 Test Item Value Reference Range Interpretation Comments GLUCOSE BEDSIDE TESTING (test code 410 mg/dL 70-110 H = GLUBED) GLUCOSE BEDSIDE [id number] 11:40:00 Test Item Value Reference Range Interpretation Comments GLUCOSE BEDSIDE TESTING (test code 354 mg/dL 70-110 H = GLUBED) - CT CHEST W/O [id number] 09:46:00 Name: AILYN COBIAN [place] : 1955 Age/S: 64 / F [address] [address] Unit #: [id number] Loc: [place] [address] Phys: Anatoly River MD Acct: [id number] Dis Date: Status: ADM IN PHONE #: [phone] Exam Date: 08/20/2019 09 FAX #: Reason: shortness of breath EXAMS: CPT: [id number] CHEST W/O CONTRAST 05568 HISTORY: Shortness of breath, history of heart failure, COPD. CT chest,unenhanced. Reformatted sagittal and coronal images. COMPARISON: None Automated exposure control, iterative reconstruction technique, and/or adjustment of mA and/or kV according to patient's size was utilized for optimum radiation dose reduction. No intravenous contrast was administered. Significant pathology may be obscured. Thyroid tissue appears to be intact. Some small, nonpathologic lymph nodes noted in the upper mediastinum. No obvious hilar adenopathy but limited detail due to lack of contrast. There is food/debris in the upper esophagus. Further correlation with dysphagia may be needed the more distal esophagus appears to be intact. No evidence of hiatal hernia. Heart size generous with CABG changes. No pericardial fluid. No pleural effusion seen. Aortic diameter intact. The chest wall structures are symmetric. Axillary areas free of pathologic adenopathy. The lung window settings [id number] COPD changes but no large bulla or mass evident. Narrowing of the distal trachea and tracheal bifurcation seen but this could be due to breath holding artifact. This does occur in the area of the d ebris/food filled esophagus segment. No mass like densities. No infiltrates. There is a diffuse increased density in the lungs could indicate interstitial disease most likely interstitial edema. Bony structures intact. No bony destructive process. Moderate degenerative changes in the thoracic spine. I MPRESSION: Unusual appearance to the upper cervical esophagus to the level of the misa with food/debris like density in the esophagus. Further correlation with dysphagia may be needed. There is narrowing of the trachea and tracheal bifurcation in this region but possibly due to breath holding for the CT. PAGE 1 Signed Report (CONTINUED) Name: AILYN COBIAN : 1955 Age/S: 64 / F [address] [facility] [address] Unit #: [id number] Loc: [place] [address] Phys: Anatoly River MD Acct: [id number] Dis Date: Status: ADM IN PHONE #: [phone] Exam Date: 08/20/2019 09 FAX #: Reason: shortness of breath EXAMS: CPT: [id number] CT CHEST W/O CONTRAST 76528 (Continued) Cardiomegaly. Interstitial lung density and haziness may represent COPD changes. A superimposed mild degree of interstitial edema difficult to exclude. No effusion evident. No focal lung densities for pneumonia. Location: [facility] at 0946 Reported and signed by: Smith Smith M.D CC: Anatoly River MD; Disha Duncan MD Technologist:Kwesi Montalvo, RT(R)(CT)CTDI: DLP: Trnscb Date/Time: 08/20/2019 (945) [email or web address] Orig Print D/T: S: 08/20/2019 (49) PAGE 2 Signed Report GLUCOSE BEDSIDE [id number] 09:40:00 Test Item Value Reference Range Interpretation Comments GLUCOSE BEDSIDE TESTING (test code 266 mg/dL 70-110 H = GLUBED) CBC W/AUTO [id number] 08:31:00 Test Item Value Reference Range Interpretation [...] CONSISTA NT WITH AUTO DIFFERENTIAL. CBC W/AUTO [id number] 08:31:00 Test Item Value Reference Range Interpretation [...] MDIFF) CONSISTA NT WITH AUTO DIFFERENTIAL. RBC [id number] 08:31:00 Test Item Value Reference Range Interpretation Comments POLYCHROMASIA (test code = TRACE ON SCAN NONE POLC) ANISOCYTOSIS (test code = TRACE NONE ANISO) MACROCYTOSIS (test code = TRACE ON SCAN NONE MACR) STOMATOCYTES (test code = TRACE ON SCAN NONE STO) PLATELET ESTIMATE (test ADEQUATE THOUSAND ADEQUATE code = PLTEST) PLATELET MORPHOLOGY (test NORMAL code = PLTMORPH) CBC W/AUTO [id number] 08:31:00 Test Item Value Reference Range Interpretation [...] CONSISTA NT WITH AUTO DIFFERENTIAL. BASIC METABOLIC [id number] 06:57:00 Test Item Value Reference Range Interpretation [...] CA) 8.4 MG/DL 8.5-10.1 L CBC W/AUTO [id number] 06:51:00 Test Item Value Reference Range Interpretation [...] code = DIFF/SCN CRITERIA MDIFF) GLUCOSE BEDSIDE [id number] 20:28:00 Test Item Value Reference Range Interpretation Comments GLUCOSE BEDSIDE TESTING (test code 245 mg/dL 70-110 H = GLUBED) GLUCOSE BEDSIDE [id number] 16:33:00 Test Item Value Reference Range Interpretation Comments GLUCOSE BEDSIDE TESTING (test code 217 mg/dL 70-110 H = GLUBED) GLUCOSE BEDSIDE [id number] 11:59:00 Test Item Value Reference Range Interpretation Comments GLUCOSE BEDSIDE TESTING (test code 315 mg/dL 70-110 H = GLUBED) GLUCOSE BEDSIDE [id number] 07:56:00 Test Item Value Reference Range Interpretation Comments GLUCOSE BEDSIDE TESTING (test code 383 mg/dL 70-110 H = GLUBED) Novel Coronavirus 07:44:00 Test Item Value Reference Range Interpretation Comments Novel Coronavirus Negative Negative Positive r esults are 2019 Inhouse (test indicativ e of the presence code = [id number]) ofSARS-CoV -2 RNA, clinical correlation wit h [...] vitro. Testing Criteria: Shortness of BreathNovel Coronavirus [id number] 07:44:00 Test Item Value Reference Range Interpretation Comments Novel Coronavirus Negative Negative Positive r esults are 2019 Inhouse (test indicativ e of the presence code = [id number]) ofSARS-CoV -2 RNA, clinical correlation wit h [...] vitro. Testing Criteria: Shortness of BreathCBC W/AUTO [id number] 07:13:00 Test Item Value Reference Range Interpretation [...] CONSISTA NT WITH AUTO DIFFERENTIAL. CBC W/AUTO [id number] 06:49:00 Test Item Value Reference Range Interpretation [...] code = DIFF/SCN CRITERIA MDIFF) BASIC METABOLIC [id number] 06:46:00 Test Item Value Reference Range Interpretation [...] CA) 7.9 MG/DL 8.5-10.1 L GLUCOSE BEDSIDE [id number] 20:12:00 Test Item Value Reference Range Interpretation Comments GLUCOSE BEDSIDE TESTING (test code 221 mg/dL 70-110 H = GLUBED) GLUCOSE BEDSIDE [id number] 16:43:00 Test Item Value Reference Range Interpretation Comments GLUCOSE BEDSIDE TESTING (test code 288 mg/dL 70-110 H = GLUBED) [id number] 16:21:00 Test Item Value Reference Range Interpretation [...] yby method. Completed by Nursing: NOGLUCOSE BEDSIDE [id number] 12:08:00 Test Item Value Reference Range Interpretation Comments GLUCOSE BEDSIDE TESTING (test code 200 mg/dL 70-110 H = GLUBED) GLUCOSE BEDSIDE [id number] 08:06:00 Test Item Value Reference Range Interpretation Comments GLUCOSE BEDSIDE TESTING (test code 186 mg/dL 70-110 H = GLUBED) COMPREHENSIVE METABOLIC [id number] 07:03:00 Test Item Value Reference Range Interpretation [...] 45-117 H TOTAL (test code = ALKP) [id number] 07:03:00 Test Item Value Reference Range Interpretation Comments MAGNESIUM (test code = MAG) 1.9 MG/DL 1.8-2.4 N CBC W/AUTO [id number] 06:35:00 Test Item Value Reference Range Interpretation [...] = NO DIFF/SCN CRITERIA MDIFF) GLUCOSE BEDSIDE [id number] 19:53:00 Test Item Value Reference Range Interpretation Comments GLUCOSE BEDSIDE TESTING (test code 303 mg/dL 70-110 H = GLUBED) GLUCOSE BEDSIDE [id number] 17:11:00 Test Item Value Reference Range Interpretation Comments GLUCOSE BEDSIDE TESTING (test code 233 mg/dL 70-110 H = GLUBED)
[2022-01-12] MEDS ORDERED: LEVALBUTEROL 1.25 MG/3 ML NEB ONE ×3 (18:35→20:21)
[2022-01-12 19:00] LABS: Absolute Lymphocytes (CBC) 1.4 K/uL (0.7-4.9); Lymphocytes % 11.7 % (15.3-44.8); MPV 7.8 fL (7.6-11.3); RBC Red Blood Cell Count 4.22 M/uL (3.86-4.86)
[2022-01-12 19:01] LABS: Protime INR 1.43
[2022-01-12 19:16] LABS: Potassium 3.7 mmol/L (3.5-5.1); Troponin High Sensitivity 7.1 pg/mL (<58.9)
--- NOTE | 2022-01-12 19:48 | RAD REPORT ---
EXAM DESCRIPTION: RAD - Chest Single View - 01/12/2022 6:54 pm CLINICAL HISTORY: SOB COMPARISON: Portable 12/25/2019 TECHNIQUE: AP portable chest image was obtained 01/12/2022 6:54 pm . FINDINGS: Diffusely prominent interstitial pattern is present similar or fractionally increased from comparison. No focal consolidations seen. Cardiomegaly is stable from prior imaging. Sternotomy wire s are in place. No measurable pleural effusion and no pneumothorax. No acute bony abnormality seen. N o acute aortic findings suspected. IMPRESSION: Mild CHF/volume overload pattern superimposed on chronic interstitial lung disease.
--- NOTE | 2022-01-12 20:02 | EDPHYS ---
Physician Documentation [facility] Name: Kandice Elizabeth Age: 66 yrs Sex: Female : 1955 Arrival Date: 01/12/2022 Time: 17:29 Bed 14 Private MD: ED Physician Freddy Hall HPI: 01/12 17:45 This 66 yrs old Female presents to ER via EMS with complaints of Shortness Of Breath. jmm 17:45 The patient has shortness of breath at rest. Onset: The symptoms/episode began/occurred jmm gradually, 1 week(s) ago. Duration: The symptoms are continuous. The patient's shortness of breath is aggravated by nothing, is alleviated by nothing. Associated signs and symptoms: Pertinent positives: productive cough, fever. The patient has experienced similar episodes in the past. Historical: - Allergies: 17:38 Amoxicillin; db - PMHx: 17:38 Atrial Fib; Brain bleed; CAD; CHF; COPD; Diabetes - IDDM; Hypertension; db - PSHx: 17:38 heart ablasion; bipass; db - Immunization history:: Client reports having NOT received the Covid vaccine. - Social history:: Smoking status: Patient denies any tobacco usage or history of. ROS: 17:45 Constitutional: Positive for body aches, fever. jmm 17:45 Respiratory: Positive for cough, shortness of breath, wheezing. 17:45 All other systems are negative. Exam: 17:45 Constitutional: This is a well developed, well nourished patient who is awake, alert, jmm and in no acute distress. Head/Face: atraumatic. Eyes: EOMI, no conjunctival erythema appreciated ENT: Moist Mucus Membranes Neck: Trachea midline, Supple Chest/axilla: Normal chest wall appearance and motion. 17:45 Abdomen/GI: Non distended Back: Normal ROM Skin: General appearance color normal MS/ Extremity: Moves all extremities, no obvious deformities appreciated, no edema noted to the lower extremities Neuro: Awake and alert Psych: Behavior is normal, Mood is normal, Patient is cooperative and pleasant 17:45 Cardiovascular: Rate: normal, Rhythm: regular. 17:45 Respiratory: the patient does not display signs of respiratory distress, Respirations: normal, Breath sounds: wheezing: that is mild, is scattered. Vital Signs: 17:35 BP 189 / 108; Pulse 97; Resp 24; Temp 98; Pulse Ox 96% ; Weight 99.34 kg; Height 5 ft. db (152.40 cm); Pain 0/10; 18:36 BP 163 / 107; Pulse 85; Resp 22; Pulse Ox 96% ; db 20:45 BP 142 / 92; Pulse 80; Resp 19; Temp 97.8; Pulse Ox 98% on R/A; Pain 0/10; ke1 17:35 Body Mass Index 42.77 (99.34 kg, 152.40 cm) db MDM: 17:45 Patient medically screened. [facility] 19:20 Data reviewed: vital signs, nurses notes. Counseling: I had a detailed discussion with rosangela the patient and/or guardian regarding: the historical points, exam findings, and any diagnostic results supporting the discharge/admit diagnosis, lab results, radiology results, the need for outpatient follow up, to return to the emergency department if symptoms worsen or persist or if there are any questions or concerns that arise at home. ED course: Patient is alert and on toxic in appearance in the ED. No signs of resp distress. patient advised to follow up with pcp and otherwise given strict return precautions. patient understood and agrees with the plan of care. . 19:58 ED course: Patient states feeling much better. Advised to double up lasix for chf. rosangela Prescribed oral abx and antiviral. patient given strict return precaution. Patient understood and agrees with the plan of care. . 01/12 17:50 Order name: Basic Metabolic Panel; Complete Time: 19:18 [facility] 01/12 17:50 Order name: CBC with Diff; Complete Time: 19:18 [facility] 01/12 17:50 Order name: NT PRO-BNP; Complete Time: 19:18 [facility] 01/12 17:50 Order name: PT-INR; Complete Time: 19:02 [facility] 01/12 17:50 Order name: Troponin HS; Complete Time: 19:18 [facility] 01/12 17:50 Order name: SARS-COV-2 RT PCR (Document "Date of Onset" if Symptomatic); Complete Time: [facility] 01/12 17:50 Order name: XRAY Chest (1 view); Complete Time: 19:49 [facility] 01/12 17:50 Order name: EKG; Complete Time: 17:51 [facility] 01/12 17:50 Order name: Cardiac monitoring; Complete Time: 18:54 [facility] 01/12 17:50 Order name: Influenza Screen (a \\T\\ B); Complete Time: 19:02 [facility] 01/12 17:50 Order name: EKG - Nurse/Tech; Complete Time: 18:32 [facility] 01/12 17:50 Order name: IV Saline Lock; Complete Time: 18:54 [facility] 01/12 17:50 Order name: Labs collected and sent; Complete Time: 18:54 [facility] 01/12 17:50 Order name: O2 Per Protocol; Complete Time: 18:32 [facility] 01/12 17:50 Order name: O2 Sat Monitoring; Complete Time: 18:32 [facility] Administered Medications: 18:38 Drug: Xopenex (levalbuterol) (3) 1.25 mg Route: Inhalation; db 20:28 Drug: Tamiflu (oseltamivir) 75 mg Route: PO; ke1 21:03 Follow up: Response: No adverse reaction ke1 20:28 Drug: AZITHromycin 500 mg Route: PO; ke1 21:03 Follow up: Response: No adverse reaction ke1 20:28 Drug: Xopenex (levalbuterol) (3) 1.25 mg Route: Inhalation; ke1 21:03 Follow up: Response: No adverse reaction; Marked relief of symptoms ke1 Disposition Summary: 01/12/22 20:01 Discharge Ordered Location: Home [facility] Condition: Stable [facility] Diagnosis - Acute on chronic combined systolic (congestive) and diastolic (congestive) heart [facility] failure - Influenza [facility] Followup: [facility] - With: Private Physician - When: 1 - 2 days - Reason: Recheck today's complaints, Continuance of care, Re-evaluation by your physician Discharge Instructions: - Discharge Summary Sheet [facility] - Influenza, Adult [facility] - Heart Failure Exacerbation [facility] Forms: - Medication Reconciliation Form [facility] - Thank You Letter [facility] - Antibiotic Education [facility] - Prescription Opioid Use [facility] Prescriptions: - Zithromax Z-Vincent 250 mg Oral Tablet - take 1 tablet by ORAL route as directed for 5 days Day 1 - take two (2) tablets [facility] one time. Day 2, 3, 4 , 5 take one (1) tablet once daily.; 6 tablet; Refills: 0, Product Selection Permitted - Tamiflu 75 mg Oral Capsule - take 1 tablet by ORAL route every 12 hours for 5 days; 10 tablet; Refills: 0, [facility] Product Selection Permitted - Albuterol Sulfate 2.5 mg /3 mL (0.083 %) Inhalation Solution for Nebulization - inhale 1 unit by NEBULIZATION route every 8 hours As needed; 1 box; Refills: 0, [facility] Product Selection Permitted Addendum: 01/16/2022 04:13 Co-signature as Attending Physician, Freddy Hall MD I agree with the assessment and c monk plan of care. Signatures: Dispatcher [employer] EDFreddy Almonte MD MD cha Mickail, Joel, PA PA jmm Ebrottie, Kouassi RN RN ke1 Janina Pollard RN RN db
--- NOTE | 2022-01-12 20:02 | ER ---
Nurse's Notes [facility] Name: Kandice Elizabeth Age: 66 yrs Sex: Female : 1955 Arrival Date: 01/12/2022 Time: 17:29 Bed 14 Private MD: Diagnosis: Acute on chronic combined systolic (congestive) and diastolic (congestive) heart failure;Influenza Presentation: 01/12 17:35 Chief complaint: Patient states: Shortness of breath x1 week. hx of asthma went to PCP db and was given neb treatments. Coronavirus screen: Vaccine status: Patient reports being unvaccinated. Client denies travel out of the [place] in the last 14 days. At this time, the client does not indicate any symptoms associated with coronavirus-19. Ebola Screen: Patient negative for fever greater than or equal to 101.5 degrees Fahrenheit, and additional compatible Ebola Virus Disease symptoms Patient denies exposure to infectious person. Patient denies travel to an Ebola-affected area in the 21 days before illness onset. No symptoms or risks identified at this time. Onset of symptoms was January 05, 2022. 17:35 Method Of Arrival: EMS: [facility] db 17:35 Acuity: COLBY 2 db 17:35 Initial Sepsis Screen: Does the patient meet any 2 criteria? RR > 20 per min. No. db Patient's initial sepsis screen is negative. Does the patient have a suspected source of infection? No. Patient's initial sepsis screen is negative. Risk Assessment: Do you want to hurt yourself or someone else? Patient reports no desire to harm self or others. Triage Assessment: 17:35 General: Appears distressed, uncomfortable, Behavior is appropriate for age, restless. db Respiratory: Onset: The symptoms/episode began/occurred today, the patient has moderate shortness of breath. Historical: - Allergies: 17:38 Amoxicillin; db - PMHx: 17:38 Atrial Fib; Brain bleed; CAD; CHF; COPD; Diabetes - IDDM; Hypertension; db - PSHx: 17:38 heart ablasion; bipass; db - Immunization history:: Client reports having NOT received the Covid vaccine. - Social history:: Smoking status: Patient denies any tobacco usage or history of. Screenin:36 Abuse screen: Denies threats or abuse. Denies injuries from another. Nutritional db screening: No deficits noted. Tuberculosis screening: No symptoms or risk factors identified. Fall Risk None identified. No fall in past 12 months (0 pts). No secondary diagnosis (0 pts). IV access (20 points). Ambulatory Aid- Crutches/Cane/Walker (15 pts). Gait- Normal/Bed Rest/Wheelchair (0 pts) Mental Status- Oriented to own ability (0 pts). Total Hill Fall Scale indicates Low Risk Score (25-44 pts). Assessment: 17:35 Reassessment: Patient is alert, oriented x 3, equal unlabored respirations, skin db warm/dry/pink. Reassessment:. General: Appears distressed, uncomfortable, Behavior is. Pain: Denies pain. Neuro: No deficits noted. Level of Consciousness is awake, alert, obeys commands, Oriented to person, place, time, situation, Appropriate for age Speech is normal, Facial symmetry appears normal, Pupils are PERRLA. Cardiovascular: No deficits noted. Denies chest pain, Rhythm is sinus rhythm. Respiratory: Reports shortness of breath at rest cough that is persistent Airway is patent Respiratory effort is even, unlabored, Respiratory pattern is regular, symmetrical, Breath sounds are clear bilaterally. GI: No deficits noted. No signs and/or symptoms were reported involving the gastrointestinal system. : No deficits noted. No signs and/or symptoms were reported regarding the genitourinary system. EENT: No deficits noted. No signs and/or symptoms were reported regarding the EENT system. Derm: No deficits noted. No signs and/or symptoms reported regarding the dermatologic system. Musculoskeletal: No deficits noted. No signs and/or symptoms reported regarding the musculoskeletal system. 20:28 Reassessment: waiting on med tx before d/c. ke1 Vital Signs: 17:35 BP 189 / 108; Pulse 97; Resp 24; Temp 98; Pulse Ox 96% ; Weight 99.34 kg; Height 5 ft. db (152.40 cm); Pain 0/10; 18:36 BP 163 / 107; Pulse 85; Resp 22; Pulse Ox 96% ; db 20:45 BP 142 / 92; Pulse 80; Resp 19; Temp 97.8; Pulse Ox 98% on R/A; Pain 0/10; ke1 17:35 Body Mass Index 42.77 (99.34 kg, 152.40 cm) db ED Course: 17:29 Patient arrived in ED. eb 17:35 Janina Pollard, RN is Primary Nurse. db 17:38 Triage completed. db 17:39 Arm band placed on right wrist. db 17:43 Royer Turner PA is PHCP. jmm 17:43 Freddy Hall MD is Attending Physician. jmm 17:45 EKG done, by ED staff. tm3 18:14 COVID swab sent to lab. Flu and/or RSV swab sent to lab. tm3 18:35 SARS-COV-2 RT PCR (Document "Date of Onset" if Symptomatic) Sent. zm 18:36 Patient has correct armband on for positive identification. Bed in low position. Call db light in reach. Side rails up X2. 18:45 Inserted saline lock: 22 gauge in right antecubital area, using aseptic technique. db Blood collected. 18:55 XRAY Chest (1 view) In Process Unspecified. EDMS 21:04 No provider procedures requiring assistance completed. ke1 21:05 IV discontinued. ke1 Administered Medications: 18:38 Drug: Xopenex (levalbuterol) (3) 1.25 mg Route: Inhalation; db 20:28 Drug: Tamiflu (oseltamivir) 75 mg Route: PO; ke1 21:03 Follow up: Response: No adverse reaction ke1 20:28 Drug: AZITHromycin 500 mg Route: PO; ke1 21:03 Follow up: Response: No adverse reaction ke1 20:28 Drug: Xopenex (levalbuterol) (3) 1.25 mg Route: Inhalation; ke1 21:03 Follow up: Response: No adverse reaction; Marked relief of symptoms ke1 Medication: 18:36 VIS not applicable for this client. db Outcome: 20:01 Discharge ordered by . jmm 21:04 Discharged to home via wheelchair. ke1 21:04 Condition: good 21:04 Discharge instructions given to patient. 21:05 Patient left the ED. ke1 Signatures: Dispatcher [employer] EDMS Daryl Machado tm3 Royer Turner PA PA jmm Botello, Elizabeth eb Ebrottie, Kouassi, RN RN ke1 Alivia Connolly Janina Pollard, MARIBELL RN db Corrections: (The following items were deleted from the chart) 17:39 17:35 Coronavirus screen: Vaccine status: Patient reports receiving the 2nd dose of the db covid vaccine. Client denies travel out of the [place] in the last 14 days. At this time, the client does not indicate any symptoms associated with coronavirus-19. db
[2022-01-12] MEDS ORDERED: AZITHROMYCIN 250 MG TAB ONE (20:20)
[2022-01-12] MEDS ORDERED: OSELTAMIVIR 75 MG CAP ONE (20:20)
[2022-01-12 22:54] VITALS: BP 142/92; TEMP 97.8; O2SAT 98
--- NOTE | 2022-01-14 16:35 | EKG ---
Test Date: 2022-01-12 Test Time: 17:46:21 [employer] Solutions Architect: TM MEASUREMENT RESULTS: Intervals: Rate: 96 MI: QRSD: 76 QT: 346 QTc: 437 [place]: P: MI: QRS: 95 T: -46 INTERPRETIVE STATEMENTS: Atrial flutter with variable AV block Rightward axis T wave abnormality, consider inferior ischemia Abnormal ECG Compared to ECG 12/25/2019 03:15:20 Atrial fibrillation no longer present T-wave abnormality still present Possible ischemia still present Electronically Signed On 01-14-22 16:35:03 CDT by Tyree Hull
== END 2022-01-12 21:05 | disposition home or self-care (01) ==
LOC: ER 17:27
DX: I50.43 Acute on chronic combined systolic (congestive) and diastolic (congestive) heart failure (principal); J10.1 Influenza due to other identified influenza virus with other respiratory manifestations; E11.9 Type 2 diabetes mellitus without complications; I10 Essential (primary) hypertension; I48.91 Unspecified atrial fibrillation; Z88.1 Allergy status to other antibiotic agents; Z20.822 Contact with and (suspected) exposure to COVID-19
CPT/HCPCS: 93005; 85025; 80048; 36415; 85610; 84484; 83880; 87804 ×2; 71045; 99285; U0003; J7614 ×3

== ENCOUNTER 2023-09-28 03:37 | Inpatient (IN) | payer OTHER ==
[2023-09-28] MEDS ORDERED: CEFTRIAXONE 1000 MG/VIAL ONE (04:57)
[2023-09-28] MEDS ORDERED: METHYLPREDNISOLONE 125 MG INJ ONE (04:57)
[2023-09-28] MEDS ORDERED: IPRATROPIUM BROM 0.5MG/2.5ML ONE ×2 (04:57→11:52)
[2023-09-28] MEDS ORDERED: LEVALBUTEROL 1.25 MG/3 ML NEB ONE (04:58)
[2023-09-28] MEDS ORDERED: AZITHROMYCIN 250 MG TAB ONE (04:58)
[2023-09-28] MEDS ORDERED: FAMOTIDINE 20 MG/2 ML VIAL IV ONE (04:58)
[2023-09-28] MEDS ORDERED: NA CHLORIDE 0.9% 1,000 ML ONE (04:58)
--- NOTE | 2023-09-28 05:04 | ER ---
Nurse's Notes [facility] Name: Kandice Elizabeth Age: 68 yrs Sex: Female : 1955 Arrival Date: 09/28/2023 Time: 03:37 Bed 7 Private MD: Diagnosis: Chronic combined systolic (congestive) and diastolic (congestive) heart failure;COPD/ Chronic obstructive pulmonary disease with (acute) exacerbation;Fever, unspecified;Cardiomegaly;Chronic kidney disease, unspecified-INSUFFICENCY Presentation: 09/27 03:25 Chief complaint: EMS states: Difficulty breathing since this morning, cough and pc2 congestion. 94% RA. 03:25 Coronavirus screen: At this time, the client does not indicate any symptoms associated pc2 with coronavirus-19. Ebola Screen: No symptoms or risks identified at this time. Initial Sepsis Screen: Does the patient meet any 2 criteria? No. Patient's initial sepsis screen is negative. Does the patient have a suspected source of infection? No. Patient's initial sepsis screen is negative. Risk Assessment: Do you want to hurt yourself or someone else? Patient reports no desire to harm self or others. Onset of symptoms was September 28, 2023. Care prior to arrival: None. 03:25 Method Of Arrival: EMS pc2 03:25 Acuity: COLBY 3 pc2 Triage Assessment: 04:00 General: Appears comfortable, Behavior is calm, cooperative. Pain: Denies pain. Neuro: ha1 Level of Consciousness is awake, alert, obeys commands, Oriented to person, place, time, situation. Cardiovascular: Patient's skin is warm and dry. Cardiovascular: Reports shortness of breath, Denies chest pain, Heart tones S1 S2 present. Respiratory: Reports shortness of breath at rest on exertion Airway is patent Respiratory effort is even, unlabored, Respiratory pattern is regular, symmetrical. GI: No signs and/or symptoms were reported involving the gastrointestinal system. Abdomen is round non-distended, obese. : No signs and/or symptoms were reported regarding the genitourinary system. Derm: Skin is pink, warm \T\ dry. Historical: - Allergies: 04:46 Amoxicillin; ha1 - PMHx: 04:46 Atrial Fib; Brain bleed; CAD; CHF; COPD; Diabetes - IDDM; Hypertension; ha1 - PSHx: 04:46 Bipass; Heart ablasion; ha1 - Immunization history:: Adult Immunizations unknown. - Infectious Disease History:: Denies. - Family history:: not pertinent. - Social history:: Smoking status: Patient denies any tobacco usage or history of. Screenin:00 [facility] ED Fall Risk Assessment (Adult) History of falling in the last 3 months, ha1 including since admission No falls in past 3 months (0 pts) Confusion or Disorientation No (0 pts) Intoxicated or Sedated No (0 pts) Impaired Gait Yes (1 pt) Mobility Assist Device Used Altered Elimination No (0 pt) Score/Fall Risk Level 0 - 2 = Low Risk Oriented to surroundings, Maintained a safe environment, Educated pt \T\ family on fall prevention, incl call for assistance when getting out of bed, Hourly rounding (assess needs \T\ fall precautionary measures) done. Abuse screen: Denies threats or abuse. Denies injuries from another. Nutritional screening: No deficits noted. Tuberculosis screening: No symptoms or risk factors identified. Assessment: 03:42 Reassessment: see triage assessment. ha1 04:40 Reassessment: Patient and/or family updated on plan of care and expected duration. Pain ha1 level reassessed. Patient is alert, oriented x 3, equal unlabored respirations, skin warm/dry/pink. Patient denies pain at this time. Patient states feeling better. Patient states symptoms have improved. 05:40 Reassessment: Patient and/or family updated on plan of care and expected duration. Pain ha1 level reassessed. Patient is alert, oriented x 3, equal unlabored respirations, skin warm/dry/pink. Patient denies pain at this time. Patient states feeling better. Patient states symptoms have improved. 06:40 Reassessment: Patient and/or family updated on plan of care and expected duration. Pain ha1 level reassessed. Patient is alert, oriented x 3, equal unlabored respirations, skin warm/dry/pink. 07:00 Reassessment: Patient appears in no apparent distress at this time. No changes from kc6 previously documented assessment. Patient and/or family updated on plan of care and expected duration. Pain level reassessed. Patient is alert, oriented x 3, equal unlabored respirations, skin warm/dry/pink. Vital Signs: 03:42 BP 139 / 74; Pulse 70; Resp 17 S; Temp 97.5(T); Pulse Ox 97% on R/A; Weight 99.79 kg; ha1 Height 2 ft. 5 in. ; 04:40 BP 163 / 68; Pulse 73; Resp 20 S; Pulse Ox 98% on R/A; ha1 05:30 BP 143 / 69; Pulse 69; Resp 17 S; Pulse Ox 100% on R/A; ha1 06:00 BP 155 / 65; Pulse 85; Resp 17; Pulse Ox 97% on R/A; ha1 03:42 Body Mass Index 183.92 (99.79 kg, 73.66 cm) ha1 03:42 Weight For Length Percentile 100.0 % (99.79 kg, 73.66 cm) ha1 ED Course: 03:42 Patient arrived in ED. pc2 03:42 Patient has correct armband on for positive identification. Bed in low position. Call ha1 light in reach. Side rails up X2. Adult w/ patient. 03:43 Freddy Hall MD is Attending Physician. yolanda 04:28 XRAY Chest (1 view) In Process Unspecified. EDMS 04:39 Inserted saline lock: 22 gauge in right upper arm, using aseptic technique. Blood ty collected. 04:39 First set of blood cultures drawn by me. ty 04:40 EKG done, by ED staff, reviewed by Freddy Hall MD. ty 04:55 Initial lab(s) drawn, by me, sent to lab. Second set of blood cultures drawn. ty 05:00 COVID swab sent to lab. Flu and/or RSV swab sent to lab. ty 05:01 Joelle Guan MD is Hospitalizing Provider. yolanda 05:06 Flu Sent. ty 05:06 SARS RAPID Sent. ty 05:06 Lactate w/ 2H reflex if indic. Sent. ty 05:06 Blood Culture Adult (2) Sent. ty 05:06 Basic Metabolic Panel Sent. ty 05:06 CBC with Diff Sent. ty 05:06 D-Dimer Sent. ty 05:06 LFT's Sent. ty 05:06 Magnesium Sent. ty 05:06 NT PRO-BNP Sent. ty 05:07 PT-INR Sent. ty 05:07 Troponin HS Sent. ty 06:35 Triage completed. pc2 07:00 Patient admitted, IV remains in place. ha1 07:00 Report received from Bárbara Ortiz RN \T\ Abbey Mejia RN. kc6 07:00 hall monitor on. Pulse ox on. NIBP on. Door closed. Noise minimized. Lights dimmed. kc6 Warm blanket given. Pillow given. 07:00 Arm band placed on. kc6 07:13 No provider procedures requiring assistance completed. ha1 Administered Medications: 04:58 CANCELLED (Duplicate Order): ns 0.9% 1000 ml IV at 125 ml/hr continuous yolanda 05:00 Drug: Levalbuterol Inhalation 3.75 mg Inhalation once Route: Inhalation; ha1 06:32 Follow up: Response: No adverse reaction pc2 05:00 Drug: Ipratropium Inhalation Aerosol 0.5 mg Inhalation once Route: Inhalation; ha1 06:32 Follow up: Response: No adverse reaction pc2 05:00 Drug: Famotidine IVP 20 mg IVP once; dilute with 10 mL 0.9% NaCl; give over 2 minutes ha1 Route: IVP; Site: right upper arm; 06:31 Follow up: Response: No adverse reaction pc2 05:07 Drug: MethylPrednisoLONE IVP 125 mg IVP once Route: IVP; Site: left upper arm; ha1 06:32 Follow up: Response: No adverse reaction pc2 05:27 Drug: Rocephin IV 1 grams IV at per protocol once; Given slow IV push per pharmacy ha1 instructions Route: IV; Rate: per protocol; Site: right upper arm; 06:31 Follow up: Response: No adverse reaction pc2 05:28 Drug: AZITHromycin PO 500 mg PO once Route: PO; ha1 06:32 Follow up: Response: No adverse reaction pc2 05:53 Not Given (Patient Refused): [id number] mg IVP once; give over 2 minutes ha1 06:48 Drug: Enoxaparin Sub-Q 1 mg/kg Sub-Q once Route: Sub-Q; Site: left lower abdomen; pc2 07:20 Follow up: Response: No adverse reaction ha1 Medication: 07:12 VIS not applicable for this client. ha1 Outcome: 05:03 Decision to Hospitalize by Provider. yolanda 06:00 Admitted to ER Hold. Please see [facility] for further documentation. ha1 06:00 Condition: stable 06:00 Instructed on the need for admit, Demonstrated understanding of instructions, 14:40 Patient left the ED. kc6 Signatures: Dispatcher [employer] Freddy Schmitt MD MD cha Ayala, Heidy, RN RN ha1 Mary Ann Moya RN RN kc6 Robi Wallis Pam, RN RN pc2 Corrections: (The following items were deleted from the chart) 05:52 05:05 Furosemide IVP 40 mg IVP in right upper arm ha1 ha1
--- NOTE | 2023-09-28 05:04 | EDPHYS ---
Physician Documentation [facility] Name: Kandice Elizabeth Age: 68 yrs Sex: Female : 1955 Arrival Date: 09/28/2023 Time: 03:37 Bed 7 Private MD: ED Physician Freddy Hall HPI: 09/27 03:56 This 68 yrs old Female presents to ER via Unassigned with complaints of yolanda copd/chf, fever today. 03:56 The patient has shortness of breath at rest, with light activity. Onset: The yolanda symptoms/episode began/occurred 2 day(s) ago. Duration: The symptoms are continuous, and are steadily getting worse. The patient's shortness of breath is aggravated by coughing, light activity, supine position, is alleviated by OTC meds, pursed lip breathing, rest, sitting up. The patient presents to the emergency department with wheezing, Current therapy: albuterol nebs, that began unk. Modifying factors: The symptoms are alleviated by cool environment, nebulizer treatment, the symptoms are aggravated by exertion. The patient or guardian reports cough, difficulty breathing, flu symptoms, arthralgias, low-grade fever, myalgias, hoarse voice. Onset: The symptoms/episode began/occurred yesterday. Modifying factors: The symptoms are alleviated by elevating head, remaining still, the symptoms are aggravated by activity, lying flat. 04:02 Associated signs and symptoms: Pertinent positives: non-productive cough, fever. yolanda Severity of symptoms: At their worst the symptoms were moderate, in the emergency department the symptoms are unchanged. Associated signs and symptoms: Pertinent positives: fever, rhinorrhea, sore throat. The patient has experienced similar episodes in the past, multiple times. Historical: - Allergies: 04:46 Amoxicillin; ha1 - PMHx: 04:46 Atrial Fib; Brain bleed; CAD; CHF; COPD; Diabetes - IDDM; Hypertension; ha1 - PSHx: 04:46 Bipass; Heart ablasion; ha1 - Immunization history:: Adult Immunizations unknown. - Infectious Disease History:: Denies. - Family history:: not pertinent. - Social history:: Smoking status: Patient denies any tobacco usage or history of. ROS: 03:56 Constitutional: Negative for fever, chills, and weight loss, Eyes: Negative for injury, yolanda pain, redness, and discharge, ENT: Negative for injury, pain, and discharge, Neck: Negative for injury, pain, and swelling, Cardiovascular: Negative for chest pain, palpitations, and edema, Abdomen/GI: Negative for abdominal pain, nausea, vomiting, diarrhea, and constipation, Back: Negative for injury and pain, : Negative for injury, bleeding, discharge, and swelling, MS/Extremity: Negative for injury and deformity, Skin: Negative for injury, rash, and discoloration, Neuro: Negative for headache, weakness, numbness, tingling, and seizure, Psych: Negative for depression, anxiety, suicide ideation, homicidal ideation, and hallucinations, Allergy/Immunology: Negative for hives, rash, and allergies, Endocrine: Negative for neck swelling, polydipsia, polyuria, polyphagia, and marked weight changes, Hematologic/Lymphatic: Negative for swollen nodes, abnormal bleeding, and unusual bruising, 03:56 Respiratory: Positive for cough, pleurisy, shortness of breath, wheezing, expiratory, 03:56 MS/extremity: Negative for acute changes, Exam: 03:56 Constitutional: This is a well developed, well nourished patient who is awake, alert, yolanda and in no acute distress. Head/Face: Normocephalic, atraumatic. Eyes: Pupils equal round and reactive to light, extra-ocular motions intact. Lids and lashes normal. Conjunctiva and sclera are non-icteric and not injected. Cornea within normal limits. Periorbital areas with no swelling, redness, or edema. ENT: Nares patent. No nasal discharge, no septal abnormalities noted. Tympanic membranes are normal and external auditory canals are clear. Oropharynx with no redness, swelling, or masses, exudates, or evidence of obstruction, uvula midline. Mucous membranes moist. Neck: Trachea midline, no thyromegaly or masses palpated, and no cervical lymphadenopathy. Supple, full range of motion without nuchal rigidity, or vertebral point tenderness. No Meningismus. Chest/axilla: Normal chest wall appearance and motion. Nontender with no deformity. No lesions are appreciated. Cardiovascular: Regular rate and rhythm with a normal S1 and S2. No gallops, murmurs, or rubs. Normal PMI, no JVD. No pulse deficits. Abdomen/GI: Soft, non-tender, with normal bowel sounds. No distension or tympany. No guarding or rebound. No evidence of tenderness throughout. Back: No spinal tenderness. No costovertebral tenderness. Full range of motion. Female : Normal external genitalia. Skin: Warm, dry with normal turgor. Normal color with no rashes, no lesions, and no evidence of cellulitis. MS/ Extremity: Pulses equal, no cyanosis. Neurovascular intact. Full, normal range of motion. Neuro: Awake and alert, GCS 15, oriented to person, place, time, and situation. Cranial nerves II-XII grossly intact. Motor strength 5/5 in all extremities. Sensory grossly intact. Cerebellar exam normal. Normal gait. Psych: Awake, alert, with orientation to person, place and time. Behavior, mood, and affect are within normal limits. 03:56 Respiratory: mild respiratory distress is noted, Respirations: tachypnea, that is mild, Breath sounds: decreased breath sounds, that are mild, are scattered, rhonchi, that are mild, are scattered, stridor, is not appreciated, + upper airway congestion. wheezing: expiratory 05:48 ECG was reviewed by the Attending Physician. [facility] Vital Signs: 03:42 BP 139 / 74; Pulse 70; Resp 17 S; Temp 97.5(T); Pulse Ox 97% on R/A; Weight 99.79 kg; ha1 Height 2 ft. 5 in. ; 04:40 BP 163 / 68; Pulse 73; Resp 20 S; Pulse Ox 98% on R/A; ha1 05:30 BP 143 / 69; Pulse 69; Resp 17 S; Pulse Ox 100% on R/A; 1 06:00 BP 155 / 65; Pulse 85; Resp 17; Pulse Ox 97% on R/A; ha1 03:42 Body Mass Index 183.92 (99.79 kg, 73.66 cm) 1 03:42 Weight For Length Percentile 100.0 % (99.79 kg, 73.66 cm) [facility] MDM: 03:43 Patient medically screened. [facility] 04:00 Differential diagnosis: Anemia Anxiety Reaction asthma, Bronchitis CHF exacerbation, yolanda Chronic Obstructive Pulmonary Disease acute asthma, exercise-induced asthma, reactive airway, CHF, anaphylaxis, foreign body. Antibiotic administration: Rocephin and Zithromax given. Differential Diagnosis: Obstructed Airway Bronchitis Influenza Upper Respiratory Infection Sinusitis Pharyngitis Asthma Exacerbation Viral Syndrome Pneumonia. Immunization status: Pneumococcal vaccine: within last 5 years. Influenza vaccine: Data reviewed: vital signs. Consideration of Admission/Observation Patient was admitted/placed on observation. Escalation of care including admission/observation considered. I considered the following discharge prescriptions or medication management in the emergency department Medications were administered in the Emergency Department. See MAR. Independent interpretation of the following test(s) in the Emergency Department EKG: See my EKG interpretation above. Test considered but Not performed: MRI: no mri cherst. Historians other than the Patient: EMS: ems well informed. Care significantly affected by the following chronic conditions: Hypertension, Congestive Heart Failure, Chronic Obstructive Pulmonary Disease, Obesity. Counseling: I had a detailed discussion with the patient and/or guardian regarding the historical points, exam findings, and any diagnostic results supporting the discharge/admit diagnosis, the presence of at least one elevated blood pressure reading (>120/80) during this emergency department visit, lab results, radiology results, the need for further work-up and treatment in the hospital. 09/27 03:48 Order name: Basic Metabolic Panel; Complete Time: 06:16 [facility] 09/27 03:48 Order name: CBC with Diff; Complete Time: 05:55 [facility] 09/27 03:48 Order name: D-Dimer; Complete Time: 05:59 [facility] 09/27 03:48 Order name: LFT's; Complete Time: 06:16 [facility] 09/27 03:48 Order name: Magnesium; Complete Time: 06:16 [facility] 09/27 03:48 Order name: NT PRO-BNP; Complete Time: 06:16 [facility] 09/27 03:48 Order name: PT-INR; Complete Time: 05:59 [facility] 09/27 03:48 Order name: Troponin HS; Complete Time: 06:16 [facility] 09/27 03:48 Order name: Blood Culture Adult (2) [facility] 09/27 03:48 Order name: Lactate w/ 2H reflex if indic.; Complete Time: 05:55 [facility] 09/27 03:48 Order name: SARS RAPID; Complete Time: 13:44 [facility] 09/27 03:48 Order name: Flu; Complete Time: 06:16 [facility] 09/27 05:32 Order name: CBC with Automated Diff EDMS 09/27 05:32 Order name: CBC with Automated Diff EDMS 09/27 05:32 Order name: Comprehensive Metabolic Panel EDMS 09/27 05:32 Order name: Comprehensive Metabolic Panel [facility] 09/27 08:52 Order name: Glucose, Ancillary Testing; Complete Time: 13:44 [facility] 09/27 11:59 Order name: Glucose, Ancillary Testing; Complete Time: 13:44 [facility] 09/27 03:48 Order name: XRAY Chest (1 view) [facility] 09/27 10:54 Order name: US; Complete Time: 13:44 [facility] 09/27 03:48 Order name: EKG; Complete Time: 03:48 [facility] 09/27 03:48 Order name: Cardiac monitoring; Complete Time: 04:48 [facility] 09/27 03:48 Order name: EKG - Nurse/Tech; Complete Time: 05:06 [facility] 09/27 03:48 Order name: IV Saline Lock; Complete Time: 04:48 [facility] 09/27 03:48 Order name: Labs collected and sent; Complete Time: 04:48 [facility] 09/27 03:48 Order name: O2 Per Protocol; Complete Time: 04:48 [facility] 09/27 03:48 Order name: O2 Sat Monitoring; Complete Time: 04:48 [facility] EC:48 Rate is 68 beats/min. Rhythm is regular. QRS [place] is Normal. SD interval is normal at oylanda 250 msec. QRS interval is normal. QT interval is normal. No Q waves. T waves are Inverted in leads III, aVF. No ST changes noted. Clinical impression: Abnormal EKG without significant change. Interpreted by me. Reviewed by me. Administered Medications: 04:58 CANCELLED (Duplicate Order): ns 0.9% 1000 ml IV at 125 ml/hr continuous yolanda 05:00 Drug: Levalbuterol Inhalation 3.75 mg Inhalation once Route: Inhalation; ha1 06:32 Follow up: Response: No adverse reaction pc2 05:00 Drug: Ipratropium Inhalation Aerosol 0.5 mg Inhalation once Route: Inhalation; ha1 06:32 Follow up: Response: No adverse reaction pc2 05:00 Drug: Famotidine IVP 20 mg IVP once; dilute with 10 mL 0.9% NaCl; give over 2 minutes ha1 Route: IVP; Site: right upper arm; 06:31 Follow up: Response: No adverse reaction pc2 05:07 Drug: MethylPrednisoLONE IVP 125 mg IVP once Route: IVP; Site: left upper arm; ha1 06:32 Follow up: Response: No adverse reaction pc2 05:27 Drug: Rocephin IV 1 grams IV at per protocol once; Given slow IV push per pharmacy ha1 instructions Route: IV; Rate: per protocol; Site: right upper arm; 06:31 Follow up: Response: No adverse reaction pc2 05:28 Drug: AZITHromycin PO 500 mg PO once Route: PO; ha1 06:32 Follow up: Response: No adverse reaction pc2 05:53 Not Given (Patient Refused): [id number] mg IVP once; give over 2 minutes ha1 06:48 Drug: Enoxaparin Sub-Q 1 mg/kg Sub-Q once Route: Sub-Q; Site: left lower abdomen; pc2 07:20 Follow up: Response: No adverse reaction ha1 Disposition Summary: 09/28/23 05:03 Hospitalization Ordered Notes: Hospitalization Status: Inpatient Admission yolanda Provider: Joelle Guan cha Condition: Fair yolanda Problem: new yolanda Symptoms: have improved yolanda Bed/Room Type: Standard yolanda Location: [facility] ER HOLD(09/28/23 05:33) Room Assignment: ERHOLD-(09/28/23 05:33) cg Diagnosis - Chronic combined systolic (congestive) and diastolic (congestive) heart failure yolanda - COPD/ Chronic obstructive pulmonary disease with (acute) exacerbation yolanda - Fever, unspecified yolanda - Cardiomegaly yolanda - Chronic kidney disease, unspecified - INSUFFICENCY yolanda Forms: - Medication Reconciliation Form yolanda - SBAR form yolanda - Leadership Thank You Letter yolanda Signatures: Dispatcher [employer] EDMS Frdedy Hall MD MD cha Waters, Shelly, SKID WORKER-C SKID WORKER-Laina Gomez, MARIBELL RN Abbey Mejia, RN RN ha1 Bárbara Ortiz, RN RN pc2 Corrections: (The following items were deleted from the chart) 03:48 03:48 BASIC METABOLIC PANEL+C.LAB.BRZ ordered. EDMS EDMS 03:48 03:48 CBC+H.LAB.BRZ ordered. EDMS EDMS 03:48 03:48 D-DIMER+COAG.LAB.BRZ ordered. EDMS EDMS 03:48 03:48 HEPATIC FUNCTION+C.LAB.BRZ ordered. EDMS EDMS 03:48 03:48 MAGNESIUM+C.LAB.BRZ ordered. EDMS EDMS 03:48 03:48 PROBNP+C.LAB.BRZ ordered. EDMS EDMS 03:48 03:48 PROTIME (+INR)+COAG.LAB.BRZ ordered. EDMS EDMS 03:48 03:48 Troponin High Sensitivity+C.LAB.BRZ ordered. EDMS EDMS 03:48 03:48 BLOOD CULTURE*+BA.LAB.BRZ ordered. EDMS EDMS 03:48 03:48 LACTATE+C.LAB.BRZ ordered. EDMS EDMS 04:58 03:48 NS 0.9% IV 1000 ml IV at 125 ml/hr continuous ordered. yolanda yolanda 05:33 05:03 Telemetry/MedSurg (Inpatient) yolanda cg 05:33 05:03 yolanda cg 06:00 06:00 Extrem Venous W Compression Sushil+US.RAD.BRZ ordered. EDMS EDMS 06:00 06:00 Chest For PE Angio+CT.RAD.BRZ ordered. EDMS EDMS
[2023-09-28] MEDS ORDERED: ONDANSETRON 4 MG/2 ML VIAL IV PRN (05:27)
[2023-09-28] MEDS ORDERED: MORPHINE 4 MG/ML SYR IV PRN (05:27)
--- NOTE | 2023-09-28 05:27 | P.HP ---
Certification for Inpatient Patient admitted to: Observation With expected LOS: >2 Midnights Patient will require the following post-hospital care: None Practitioner: I am a practitioner with admitting privileges, knowledge of patient current condition, hospital course, and medical plan of care. Services: Services provided to patient in accordance with Admission requirements found in Title 42 Section 412.3 of the Code of Federal Regulations Patient History Date of Service: 09/28/23 Reason for admission: Fever, shortness of breath History of Present Illness: 68-year-old female with past medical history of hypertension, DM, history of CVA with brain bleed, diastolic CHF, A-fib, COPD, who presented because of 1 day history of fever with chills at home, associated with shortness of breath worse with activity. Patient admits to cough, productive of scanty whitish sputum, no COVID contacts. She states her wheezing is typical for intermittent flare. She has home nebulizers. She denies any diarrhea or vomiting. On arrival in the ED she was afebrile at 97, satting well on room air. Chest x- ray pending, laboratory workup pending. Patient is anxious to go home today Allergies amoxicillin Adverse Reaction (Verified 12/09/19 12:49) Rash Home Medications: Apixaban [Eliquis] 5 mg PO BID 12/09/19 Cetirizine HCl [Allergy Relief] 10 mg PO DAILY 12/09/19 Fluticasone Propion/Salmeterol [Advair 250-50 Diskus] 1 inh IH DAILY 12/09/19 Furosemide [Lasix*] 40 mg PO BIDL 12/09/19 Glipizide [Glipizide ER] 2.5 mg PO DAILY 12/09/19 Metoprolol Tartrate [Lopressor*] 25 mg PO BID 12/09/19 Pantoprazole Sodium [Protonix] 40 mg PO 0600 12/09/19 Pramipexole [Mirapex*] 0.25 mg PO DAILY 12/09/19 Trazodone HCl 50 mg PO BEDTIME PRN 12/09/19 Venlafaxine HCl [Venlafaxine HCl ER] 150 mg PO DAILY 12/09/19 Albuterol Neb [Proventil 0.083% Neb Soln] 2.5 mg NEB [id number] PRN #120 amp 12/15/19 Ipratropium Neb [Atrovent*] 0.5 mg NEB [id number] PRN #120 amp 12/15/19 Spironolactone [Aldactone*] 25 mg PO BID #60 tab 12/15/19 - Past Medical/Surgical History Diabetic: Yes -: DM 2 -: HTN -: COPD -: Restless leg syndrome -: restless leg syndrome -: obst airway per signif other. -: CAD -: Cardiac surgery -: Brain surgery for aneurysm - Social History Smoking Status: Former smoker Smoking therapy provided: No Patient receptive to therapy: No Alcohol use: No CD- Drugs: No Caffeine use: No Place of Residence: Home Review of Systems General: Fever, Chills, Weakness Respiratory: SOB with Excertion Physical Examination - Physical Exam General: Alert, In no apparent distress, Oriented x3 HEENT: Atraumatic, Normocephalic Neck: 2+ carotid pulse no bruit, JVD not distended Respiratory: Diminished, Expiratory wheezes Cardiovascular: Normal pulses, Regular rate/rhythm, Normal S1 S2 Gastrointestinal: Normal bowel sounds, Soft and benign, Non-distended, No ascites, No tenderness Musculoskeletal: No clubbing, No swelling Neurological: Normal speech, Normal strength at 5/5 x4 extr, Sensation intact, Cranial nerves 3-12 intact Assessment and Plan - Problems (Diagnosis) (1) COPD (chronic obstructive pulmonary disease) Current Visit: No Status: Acute Qualifiers: COPD type: chronic bronchitis Chronic bronchitis type: simple Qualified Code(s): J41.0 - Simple chronic bronchitis (2) Diabetes Current Visit: No Status: Acute Qualifiers: Diabetes mellitus type: type 2 Diabetes mellitus complication status: without complication - Plan Impression COPD exacerbation Presumed acute bronchitis History of CHF History of A-fib Hypertension DM Plan Admit to observation Start empirical antibiotics with cefepime IV Solu-Medrol Obtain blood culture Obtain sputum culture Wili Benedict as needed Follow-up pending chest x-ray and laboratory workup to rule out underlying pneumonia Lovenox for DVT prophylaxis Obtain home meds Full code Will continue to follow - Advance Directives Does patient have a Living Will: No Does patient have a Durable POA for Healthcare: No - Code Status/Comfort Care Code Status Assessed: Yes Code Status: Full Code
[2023-09-28] MEDS ORDERED: BENZONATATE 100 MG CAP PO PRN (05:29)
[2023-09-28] MEDS ORDERED: HYDRALAZINE HCL 20 MG/ML VIAL IV PRN (05:29)
[2023-09-28] MEDS ORDERED: FUROSEMIDE 40 MG/4 ML VIAL ONE ×2 (05:35→09:17)
[2023-09-28 05:39] LABS: Absolute Basophils 0.1 K/uL (0-0.5); Absolute Eosinophils 0.4 K/uL (0-0.5); Absolute Lymphocytes (CBC) 1.4 K/uL (0.7-4.9); Absolute Monocytes 0.9 K/uL (0.1-1.3); Absolute Neutrophil 6.8 K/uL (1.8-8.0); Basophils % 0.6 % (0-1.3); Eosinophils % 3.7 % (0-4.4); Hematocrit 35.2 % (36.0-45.0); Hemoglobin 11.9 g/dL (12.0-15.0); Lymphocytes % 14.7 % (15.3-44.8); MCH 31.5 pg (27.0-35.0); MCHC 33.7 g/dL (32.0-36.0); MCV 93.5 fL (80-100); MPV 8.2 fL (7.6-11.3); Platelets 196 thou/uL (152-406); RBC Red Blood Cell Count 3.76 M/uL (3.86-4.86); Red Cell Distribution Width 14.2 % (12.1-15.2)
[2023-09-28 05:55] LABS: D-Dimer 0.553 FEUug/mL (0-0.50); PT Prothrombin Time 12.9 SECONDS (9.4-12.5); Protime INR 1.16
[2023-09-28 06:00] LABS: ALT/SGPT 18 U/L (13-56); AST/SGOT 16 U/L (15-37); Albumin 3.7 g/dL (3.4-5.0); Albumin/Globulin Ratio 1.1 (1.1-1.8); Alkaline Phosphatase 92 U/L (45-117); Anion Gap 6.6 mEq/L (5.0-15.0); BUN Blood Urea Nitrogen 51 mg/dL (7-18); Bicarbonate 30 mEq/L (21-32); Bilirubin Total 0.5 mg/dL (0.2-1.0); Globulin 3.4 g/dL (2.3-3.5); Glomerular Filtration Rate 30 ml/min (=/>90); Glucose Level 236 mg/dL (74-106); Magnesium 2.4 mg/dL (1.6-2.4); NT PRO-BNP 485 pg/mL (<125); Potassium 4.6 mEq/L (3.5-5.1); Protein, Total 7.1 g/dL (6.4-8.2); Sodium Level 136 mEq/L (136-145)
[2023-09-28] MEDS: INSULIN REGULAR (HUMAN) 100 UNIT/ML SQ SCH (06:00)
[2023-09-28 06:01] LABS: Bilirubin Direct < 0.2 mg/dL (0-0.2); Bilirubin Indirect, Calculated 0.3 mg/dL (0.2-0.8)
[2023-09-28 06:21] LABS: SARS-CoV-2 Antigen CONTROL BLUE LINE VIS/BG OK; SARS-CoV-2 Antigen Rapid Res Negative (Negative)
[2023-09-28] MEDS ORDERED: ENOXAPARIN 100 MG/ML SYR SQ ONE (06:46)
[2023-09-28 08:51] VITALS: BMI 43.0
[2023-09-28] MEDS: FUROSEMIDE 40 MG TABLET PO SCH (09:00)
[2023-09-28] MEDS: ASPIRIN EC 81 MG TAB PO SCH (09:00)
[2023-09-28] MEDS: CEFEPIME 1 GM in NA CHLORIDE 0.9% 100 ML IV SCH (09:00)
[2023-09-28] MEDS: ENOXAPARIN 30 MG/0.3 ML SQ SCH (09:00)
[2023-09-28] MEDS ORDERED: INSULIN REGULAR (HUMAN) 100 UNIT/ML ONE ×2 (09:15→11:53)
[2023-09-28] MEDS ORDERED: ASPIRIN EC 81 MG TAB PO ONE (09:17)
--- NOTE | 2023-09-28 10:54 | RAD REPORT ---
EXAM DESCRIPTION: US - Extrem Venous W Compress Sushil - 09/28/2023 8:33 am CLINICAL HISTORY: Pain;Swelling Bilateral leg edema and swelling. COMPARISON: <Comparisons> TECHNIQUE: Real-time sonographic interrogation of the left and right lower extremity deep venous sys tems was performed. FINDINGS: Normal compressibility, flow augmentation, phasic flow and spontaneous flow is identified in both the left and right lower extremity deep venous systems. IMPRESSION: No sonographic evidence of left or right lower extremity deep venous thrombosis.
[2023-09-28 11:50] VITALS: TEMP 98.2
[2023-09-28] MEDS ORDERED: FUROSEMIDE 40 MG TABLET ONE (11:52)
[2023-09-28] MEDS ORDERED: METHYLPREDNISOLONE 40 MG INJ ONE (11:52)
[2023-09-28] MEDS ORDERED: ALBUTEROL 2.5 MG/3 ML NEB SOL ONE (11:52)
[2023-09-28] MEDS ORDERED: guaiFENesin 100 MG/5 ML UCUP ONE (11:52)
[2023-09-28] MEDS ORDERED: ENOXAPARIN 40 MG/0.4 ML SQ ONE (11:53)
[2023-09-28] MEDS ORDERED: NA CHLORIDE 0.9% 100 ML ONE (11:53)
[2023-09-28] MEDS ORDERED: CEFEPIME 1 GM/VIAL ONE (11:53)
[2023-09-28] MEDS: METHYLPREDNISOLONE 125 MG INJ IV SCH (12:00)
[2023-09-28] MEDS: guaiFENesin 100 MG/5 ML UCUP PO PRN (12:05)
[2023-09-28] MEDS: IPRATROPIUM BROM 0.5MG/2.5ML NEB PRN (12:08)
[2023-09-28] MEDS: ALBUTEROL 2.5 MG/3 ML NEB SOL NEB PRN (12:08)
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
[2023-09-28 14:32] VITALS: BP 140/70
[2023-09-28 14:48] VITALS: O2SAT 97
--- NOTE | 2023-09-29 13:56 | RAD REPORT ---
EXAM DESCRIPTION: Chest Single View RadLex: XR CHEST 1 VIEW CLINICAL HISTORY: 68 years Female, COPD;Dyspnea COMPARISON: None. FINDINGS: Single AP view of the chest. Cardiomegaly. Prior sternotomy. Mild diffuse bilateral inters titial opacities. No pleural effusion or pneumothorax. No acute osseous abnormality. IMPRESSION: Cardiomegaly with mild diffuse interstitial opacities which could be due to edema or inf ection. Electronically signed by: Leticia Lyle MD 09/28/2023 05:23 AM CDT Due to temporary technical issues with the PACS/Fluency reporting system, reports are being signed by the in house radiologists without review as a courtesy to insure prompt reporting. The interpreting radiologist is fully responsible for the content of the report.
--- NOTE | 2023-10-01 09:04 | EKG ---
Test Date: 2023-09-28 Test Time: 04:53:35 Intelligence Specialist: EDWIN MEASUREMENT RESULTS: Intervals: Rate: 71 ID: [id number] QRSD: 82 QT: 414 QTc: 449 [place]: P: 77 ID: [id number] QRS: 106 T: 10 INTERPRETIVE STATEMENTS: Normal sinus rhythm Otherwise normal ECG Compared to ECG 07/02/2022 19:16:49 Atrial flutter no longer present T-wave abnormality no longer present Electronically Signed On 10-01-23 09:03:50 CDT by Joe Padgett
== END 2023-09-28 14:40 | disposition home or self-care (01) | DRG 202 ==
LOC: ER 03:37 → ERHOLD 05:27
PROVIDERS: ADMIT Internal Medicine; ATTEND Hospitalist
DX: J20.9 Acute bronchitis, unspecified (principal); I13.0 Hypertensive heart and chronic kidney disease with heart failure and stage 1 through stage 4 chronic kidney disease, or unspecified chronic kidney disease; J44.1 Chronic obstructive pulmonary disease with (acute) exacerbation; Z68.41 Body mass index [BMI] 40.0-44.9, adult; I50.32 Chronic diastolic (congestive) heart failure; J44.0 Chronic obstructive pulmonary disease with (acute) lower respiratory infection; N18.9 Chronic kidney disease, unspecified; E11.22 Type 2 diabetes mellitus with diabetic chronic kidney disease; J34.89 Other specified disorders of nose and nasal sinuses; E66.9 Obesity, unspecified; I48.91 Unspecified atrial fibrillation; G25.81 Restless legs syndrome; I25.10 Atherosclerotic heart disease of native coronary artery without angina pectoris; Z95.1 Presence of aortocoronary bypass graft; Z88.1 Allergy status to other antibiotic agents; Z86.73 Personal history of transient ischemic attack (TIA), and cerebral infarction without residual deficits; Z79.01 Long term (current) use of anticoagulants; Z79.84 Long term (current) use of oral hypoglycemic drugs; Z79.899 Other long term (current) drug therapy; Z87.891 Personal history of nicotine dependence
CPT/HCPCS: 36415; 71045; 80048; 80076; 82947; 83605; 83735; 83880; 84484; 85025; 85379; 85610; 87040; 87804; 87811; 93005; 93970; 96372; 99285; J0692; J0696; J1650; J1940; J2919; J7030; J7613; J7614; J7644

== ENCOUNTER 2024-05-01 07:33 | Emergency (ER) | payer OTHER ==
[2024-05-01] MEDS ORDERED: ACETAMINOPHEN 500 MG TAB ONE (08:06)
[2024-05-01 08:19] LABS: Absolute Basophils 0.1 K/uL (0-0.5); Absolute Eosinophils 0.6 K/uL (0-0.5); Absolute Monocytes 0.7 K/uL (0.1-1.3); Absolute Neutrophil 8.1 K/uL (1.8-8.0); Basophils % 1.1 % (0-1.3); Eosinophils % 6.1 % (0-4.4); Hemoglobin 12.3 g/dL (12.0-15.0); Lymphocytes % 9.2 % (15.3-44.8); MCH 29.9 pg (27.0-35.0); MCHC 32.3 g/dL (32.0-36.0); MCV 92.4 fL (80-100); MPV 7.5 fL (7.6-11.3); Monocytes % 6.7 % (3.3-12.3); Neutrophils % 76.9 % (41.7-73.7); Nucleated Red Blood Cells % 0.1 % (0-0); Platelets 249 thou/uL (152-406); RBC Red Blood Cell Count 4.12 M/uL (3.86-4.86); Red Cell Distribution Width 15.3 % (12.1-15.2)
--- NOTE | 2024-05-01 08:30 | RAD REPORT ---
EXAMINATION: Ankle Right 3 View CLINICAL INDICATION: Female, 68 years old. ankle injury COMPARISON: No prior exam. FINDINGS: No definite acute fracture. Very large plantar aspect calcaneal spur. A longitudinally oriented lucen cy is present that could reflect a nondisplaced fracture. No malalignment/dislocation. Large plantar and dorsal aspect calcaneal spurs. Midfoot and hindfoot degenerative changes. Moderate ankle joint degenerative changes. Other: n/a IMPRESSION: No right ankle fracture is identified. Large plantar aspect calcaneal spur which may be in part relat ed to remote trauma. Lucency in the spur could reflect a nondisplaced fracture. Correlate with site of pain. CT could confirm if indicated.
--- NOTE | 2024-05-01 08:32 | RAD REPORT ---
EXAM: Chest Single View HISTORY: DYSPNEA COMPARISON: 09/30/2023 FINDINGS: LUNGS/PLEURA: Increased vascular engorgement. MEDIASTINUM: The mediastinal silhouette is within normal limits. CARDIAC: Moderate cardiomegaly UPPER ABDOMEN: No significant abnormality. BONES: Sternotomy. No acute abnormality. LINES/TUBES/OTHER: N/A IMPRESSION: Increased vascular engorgement likely reflecting mild congestive heart failure.
[2024-05-01] MEDS ORDERED: ONDANSETRON 4 MG/2 ML VIAL ONE (08:36)
[2024-05-01] MEDS ORDERED: MORPHINE 4 MG/ML SYR ONE (08:36)
[2024-05-01 09:17] LABS: Anion Gap 10.9 mEq/L (5.0-15.0); Potassium 3.9 mEq/L (3.5-5.1); Troponin High Sensitivity 11.3 pg/mL (<58.9)
--- NOTE | 2024-05-01 09:39 | RAD REPORT ---
EXAMINATION: Ankle Right Wo Con CLINICAL INDICATION: Female, 68 years old.possible calcaneal fx TECHNIQUE: CT above extremity was performed without contrast. Reformats were performed. One or more o f the following dose reduction techniques were used: Automated exposure control, adjustment of the mA and/or kV according to patient size, and/or iterative reconstruction. Unless otherwise specified, incidental findings do not require dedicated imaging follow-up. [id number]. COMPARISON: Same-day radiograph FINDINGS: Soft tissue swelling present. No ankle fracture identified. The lucency through the calcaneus corresp onds with a remote calcaneal fracture in addition to a large adjacent calcaneal spur. A dorsal aspect calcaneal spur is present as well. Mild to moderate diffuse ankle, hindfoot, and midfoot degen erative changes. IMPRESSION: No right ankle fracture. Lucency through the calcaneal spur corresponds to a remote fracture.
[2024-05-01] MEDS ORDERED: KETAMINE HCL IN 0.9 % NACL 50 MG/5 ML SYRINGE IV ONE (09:44)
[2024-05-01 10:02] LABS: Blood Morphology Comment NOTED (NOT SEEN); Differential Total Cells Count 100; Eosinophils 8 % (0-3); Lymphocytes 17 % (15-42); Monocytes 3 % (0-10); Platelet Estimate ADEQ; Segmented Neutrophils 71 % (40-80); Stomatocytes 1+
--- NOTE | 2024-05-01 10:28 | EDPHYS ---
Physician Documentation [facility] Name: Kandice Elizabeth Age: 68 yrs Sex: Female : 1955 Arrival Date: 05/01/2024 Time: 07:33 Bed 6 Private MD: ED Physician Federico Bess HPI: 05/01 07:50 This 68 yrs old Female presents to ER via Unassigned with complaints of Leg ec2 Pain, Shortness Of Breath. 07:51 Patient arrives today for evaluation of shortness of breath and right ankle pain. ec2 Reports that she has a history of CHF, takes Lasix. States that she maybe has some decreased urine output. Patient reports no fevers or chills or nausea or vomiting. Also complains of right ankle pain. States she felt a "pop ". Reports that she was ambulating at the time. Denies any falls injuries or trauma.. Historical: - Allergies: 07:50 Amoxicillin; hb - PMHx: 07:50 Atrial Fib; Brain bleed; CAD; CAD; CHF; COPD; Diabetes - IDDM; Hypertension; hb - PSHx: 07:50 [place]; Heart ablasion; hb - Immunization history:: Adult Immunizations up to date. - Infectious Disease History:: Denies. - Social history:: Smoking status: Patient denies any tobacco usage or history of. ROS: 07:51 Constitutional: as per hpi ec2 Exam: 07:51 Constitutional: Patient arrives today for evaluation of come GEN: NAD Head: atraumatic ec2 Eyes: EOMI Ears: External ears are normal. CV: regular rate LUNGS: no respiratory distress, no tachypnea or wheezing or significant shortness of breath appreciated. ABD: non-distended SKIN: no evidence of rashes MSK: no evidence of trauma, good range of motion of the right lower extremity, intact distal neurovascular status. Vital Signs: 07:49 BP 149 / 80; Pulse 93; Resp 21; Temp 98.2; Pulse Ox 97% on R/A; Weight 90.72 kg; Height hb 4 ft. 10 in. ; Pain 6/10; 08:40 BP 156 / 97; Pulse 90; Resp 20; Pulse Ox 97% on R/A; Pain 9/10; hb 09:45 BP 128 / 80; Pulse 88; Resp 16; Pulse Ox 99% on R/A; hb 11:00 BP 128 / 74; Pulse 80; Resp 16; Pulse Ox 100% on R/A; hb 07:49 Body Mass Index 41.80 (90.72 kg, 147.32 cm) hb 07:49 Pain Scale: Adult hb 08:40 Pain Scale: Adult hb MDM: 07:45 Medical Screening Exam initiated ec2 07:52 Data reviewed: vital signs, nurses notes. ED course: Patient arrives today for ec2 evaluation of right ankle pain and shortness of breath. Examination yields MSK findings as above and cardiopulmonary findings. Will obtain lab work, EKG, chest x-ray. Suspect component of volume overload and possible ankle sprain. Doubt process such as pneumonia . 08:00 ED course: EKG independently reviewed and interpreted by me, shows flutter with ec2 variable conduction with a rate of [address] segment elevations, nonactionable intervals. Motion artifact noted in lead V6.. 09:19 ED course: Metabolic profile shows renal dysfunction with a creatinine of 2.1, compared ec2 to external records, previous creatinine of 1.8,. Fairly similar. No significant change. . 09:28 ED course: CBC unrevealing, BNP slightly elevated at 1500, consistent with patient's ec2 known CHF. Troponin within normal ranges, chest x-ray consistent with CHF.. 10:26 ED course: CT imaging shows no acute process. Will discharge home per return ec2 precautions given.. 05/01 07:45 Order name: Basic Metabolic Panel; Complete Time: 09:19 ec2 05/01 07:45 Order name: CBC with Diff; Complete Time: 10:07 ec2 05/01 07:45 Order name: NT PRO-BNP; Complete Time: 09:19 ec2 05/01 07:45 Order name: Troponin HS; Complete Time: 09:19 ec2 05/01 08:23 Order name: Manual Differential; Complete Time: 10:07 EDMS 05/01 07:45 Order name: XRAY Chest (1 view); Complete Time: 08:34 ec2 05/01 07:50 Order name: Ankle Right 3 View XRAY; Complete Time: 08:34 ec2 05/01 08:48 Order name: Ankle Right Wo Con; Complete Time: 09:41 EDMS 05/01 07:45 Order name: EKG; Complete Time: 07:46 ec2 05/01 07:45 Order name: Cardiac monitoring; Complete Time: 08:09 ec2 05/01 07:45 Order name: EKG - Nurse/Tech; Complete Time: 08:00 ec2 05/01 07:45 Order name: IV Saline Lock; Complete Time: 08:09 ec2 05/01 07:45 Order name: Labs collected and sent; Complete Time: 08:09 ec2 05/01 07:45 Order name: O2 Per Protocol; Complete Time: 08:09 ec2 05/01 07:45 Order name: O2 Sat Monitoring; Complete Time: 08:09 ec2 05/01 08:26 Order name: Labs - recollect needed: recollect green top; Complete Time: 08:46 eb 05/01 10:26 Order name: Catarino Wrap; Complete Time: 11:20 ec2 Administered Medications: 08:25 Drug: Acetaminophen PO 1000 mg PO once Route: PO; hb 09:20 Follow up: Response: No adverse reaction hb 08:46 Drug: morphine IVP or IV 4 mg IVP once over 4 mins Route: IVP; Infused Over: 4 mins; hb Site: right antecubital; 09:40 Follow up: Response: No adverse reaction hb 08:46 Drug: Ondansetron IVP 4 mg IVP once; over 2 minutes Route: IVP; Site: right hand; hb 09:40 Follow up: Response: No adverse reaction hb 09:48 Drug: Ketamine IVP 10 mg IVP once Route: IVP; Site: right hand; hb 10:45 Follow up: Response: No adverse reaction hb Disposition Summary: 05/01/24 10:27 Discharge Ordered Notes: Location: Home ec2 Condition: Stable ec2 Diagnosis - Dyspnea, unspecified ec2 - Heart failure, unspecified ec2 - Sprain of ankle ec2 Followup: ec2 - With: Private Physician - When: - Reason: Re-evaluation by your physician Discharge Instructions: - Discharge Summary Sheet ec2 - Ankle Sprain, [id number] ec2 - Heart Failure, Diagnosis, [id number] ec2 Forms: - Medication Reconciliation Form ec2 - Antibiotic Education ec2 - Prescription Opioid Use ec2 - Patient Portal Instructions ec2 - Leadership Thank You Letter ec2 Prescriptions: - Zithromax Z-Vincent 250 mg Oral Tablet - take 1 tablet ORAL route as directed for 5 days Day 1 - take two (2) tablets ec2 one time. Day 2, 3, 4 , 5 take one (1) tablet once daily.; 6 tablet; Refills: 0, Product Selection Permitted Signatures: Dispatcher [employer] Ghislaine Krishnamurthy, RN RN Yesika Cummings Edwin, MD MD ec2 Corrections: (The following items were deleted from the chart) 07:50 07:50 Ankle Left 3 View+RAD.RAD.BRZ ordered. EDMS EDMS 07:51 07:51 Ankle Right 3 View+RAD.RAD.BRZ ordered. EDMS EDMS 08:48 08:38 CT RIGHT ANKLE WO CONTRAST ordered. EDMS EDMS
--- NOTE | 2024-05-01 10:28 | ER ---
Nurse's Notes [facility] – [place], [place] Name: Kandice Elizabeth Age: 68 yrs Sex: Female : 1955 Arrival Date: 05/01/2024 Time: 07:33 Bed 6 Private MD: Diagnosis: Dyspnea, unspecified;Heart failure, unspecified;Sprain of ankle Presentation: 05/01 07:49 Chief complaint: Calder a pop then pain in right ankle while attempting to ambulate this hb morning, cough and SOB x 2 weeks. Coronavirus screen: Client presents with at least one sign or symptom that may indicate coronavirus-19. Provider contacted for isolation considerations. Ebola Screen: No symptoms or risks identified at this time. Initial Sepsis Screen: Does the patient meet any 2 criteria? No. Patient's initial sepsis screen is negative. Does the patient have a suspected source of infection? No. Patient's initial sepsis screen is negative. Risk Assessment: Do you want to hurt yourself or someone else? Patient reports no desire to harm self or others. Onset of symptoms was May 01, 2024. 07:49 Method Of Arrival: EMS: [facility] 07:49 Acuity: COLBY 3 hb Triage Assessment: 07:50 General: Appears in no apparent distress. Behavior is calm, cooperative. Pain: Pain hb currently is 8 out of 10 on a pain scale. EENT: No signs and/or symptoms were reported regarding the EENT system. Neuro: Level of Consciousness is awake, alert, obeys commands, Oriented to person, place, time, situation. Cardiovascular: Patient's skin is warm and dry. Respiratory: Reports shortness of breath at rest Respiratory effort is even, mildly labored Respiratory pattern is regular, symmetrical. GI: No signs and/or symptoms were reported involving the gastrointestinal system. : No signs and/or symptoms were reported regarding the genitourinary system. Derm: Skin is pink, warm \T\ dry. Musculoskeletal: Reports pain in right upper foot that radiates to right ankle and lower leg. Historical: - Allergies: 07:50 Amoxicillin; hb - PMHx: 07:50 Atrial Fib; Brain bleed; CAD; CAD; CHF; COPD; Diabetes - IDDM; Hypertension; hb - PSHx: 07:50 Bipass; Heart ablasion; hb - Immunization history:: Adult Immunizations up to date. - Infectious Disease History:: Denies. - Social history:: Smoking status: Patient denies any tobacco usage or history of. Screenin:48 [facility] ED Fall Risk Assessment (Adult) History of falling in the last 3 months, hb including since admission No falls in past 3 months (0 pts) Confusion or Disorientation No (0 pts) Intoxicated or Sedated No (0 pts) Impaired Gait No (0 pts) Mobility Assist Device Used No (0 pt) Altered Elimination No (0 pt) Score/Fall Risk Level 0 - 2 = Low Risk Oriented to surroundings, Maintained a safe environment. Abuse screen: Denies threats or abuse. Denies injuries from another. Nutritional screening: No deficits noted. Tuberculosis screening: No symptoms or risk factors identified. Assessment: 08:00 General: See triage assessment . hb 09:30 Reassessment: Patient appears in no apparent distress at this time. Patient and/or hb family updated on plan of care and expected duration. Pain level reassessed. Patient is alert, oriented x 3, equal unlabored respirations, skin warm/dry/pink. 10:30 Reassessment: Patient appears in no apparent distress at this time. Patient and/or hb family updated on plan of care and expected duration. Pain level reassessed. Patient is alert, oriented x 3, equal unlabored respirations, skin warm/dry/pink. 11:21 Reassessment: Patient appears in no apparent distress at this time. Patient and/or hb family updated on plan of care and expected duration. Pain level reassessed. Patient is alert, oriented x 3, equal unlabored respirations, skin warm/dry/pink. Vital Signs: 07:49 BP 149 / 80; Pulse 93; Resp 21; Temp 98.2; Pulse Ox 97% on R/A; Weight 90.72 kg; Height hb 4 ft. 10 in. ; Pain 6/10; 08:40 BP 156 / 97; Pulse 90; Resp 20; Pulse Ox 97% on R/A; Pain 9/10; hb 09:45 BP 128 / 80; Pulse 88; Resp 16; Pulse Ox 99% on R/A; hb 11:00 BP 128 / 74; Pulse 80; Resp 16; Pulse Ox 100% on R/A; hb 07:49 Body Mass Index 41.80 (90.72 kg, 147.32 cm) hb 07:49 Pain Scale: Adult hb 08:40 Pain Scale: Adult hb ED Course: 07:35 Patient arrived in ED. eb 07:42 Federico Bess MD is Attending Physician. ec2 07:48 Doreen yL, RN is Primary Nurse. al5 07:50 Triage completed. hb 07:51 Arm band placed on. hb 07:55 Client placed on continuous cardiac and pulse oximetry monitoring. NIBP monitoring hb applied. monitor car operator on. Pulse ox on. NIBP on. 07:55 Warm blanket given. Pillow given. hb 08:00 EKG done, by ED staff, reviewed by Federico Bess MD. em1 08:09 Ghislaine Wan, RN is Primary Nurse. hb 08:09 Basic Metabolic Panel Sent. hb 08:09 CBC with Diff Sent. hb 08:09 NT PRO-BNP Sent. hb 08:09 Troponin HS Sent. hb 08:09 Initial lab(s) drawn, by me, sent to lab. Inserted saline lock: 22 gauge in right hand, hb using aseptic technique. Blood collected. Flushed with 10 mL NS. 08:23 XRAY Chest (1 view) In Process Unspecified. EDMS 08:23 Ankle Right 3 View XRAY In Process Unspecified. EDMS 08:30 Warm blanket given. hb 08:48 Patient has correct armband on for positive identification. Provided Education on: use hb of call light, tests, result times. 08:[address] via stretcher. hb 08:57 Ankle Right Wo Con In Process Unspecified. EDMS 11:22 No provider procedures requiring assistance completed. IV discontinued, intact, hb bleeding controlled, No redness/swelling at site. Pressure dressing applied. Administered Medications: 08:25 Drug: Acetaminophen PO 1000 mg PO once Route: PO; hb 09:20 Follow up: Response: No adverse reaction hb 08:46 Drug: morphine IVP or IV 4 mg IVP once over 4 mins Route: IVP; Infused Over: 4 mins; hb Site: right antecubital; 09:40 Follow up: Response: No adverse reaction hb 08:46 Drug: Ondansetron IVP 4 mg IVP once; over 2 minutes Route: IVP; Site: right hand; hb 09:40 Follow up: Response: No adverse reaction hb 09:48 Drug: Ketamine IVP 10 mg IVP once Route: IVP; Site: right hand; 10:45 Follow up: Response: No adverse reaction hb Medication: 08:48 VIS not applicable for this client. hb Outcome: 10:27 Discharge ordered by . ec2 11:22 Discharged to home assisted to POV via wheelchair with hb 11:22 Condition: stable 11:22 Discharge instructions given to patient, significant other, Instructed on discharge instructions, follow up and referral plans. medication usage, Demonstrated understanding of instructions, follow-up care, medications, Prescriptions given X 1, 11:23 Patient left the ED. hb Signatures: Dispatcher [employer] Lenard Bravo em1 Ghislaine Wan RN RN Yesika Mason Edwin, MD MD ec2 Doreen Ly RN RN al5
[2024-05-01 11:28] VITALS: TEMP 98.2
[2024-05-01 11:31] VITALS: BP 128/74; O2SAT 100
--- NOTE | 2024-05-01 13:38 | EKG ---
Test Date: 2024-05-01 Test Time: 07:57:40 Head Chef: DENNISE MEASUREMENT RESULTS: Intervals: Rate: 93 [place]: QRSD: 78 QT: 396 QTc: 492 [place]: P: [place]: QRS: 107 T: -4 INTERPRETIVE STATEMENTS: Atrial flutter with variable AV block Rightward axis Nonspecific T wave abnormality Prolonged QT Abnormal ECG Compared to ECG 09/28/2023 04:54:16 Right-axis deviation now present T-wave abnormality now present Prolonged QT interval now present Sinus rhythm no longer present First degree AV block no longer present Electronically Signed On 05-01-24 13:37:29 PUNCH OPERATOR by Tyree Hull
== END 2024-05-01 11:23 | disposition home or self-care (01) ==
LOC: ER 07:33
DX: R06.00 Dyspnea, unspecified (principal); I50.9 Heart failure, unspecified; S93.401A Sprain of unspecified ligament of right ankle, initial encounter; I10 Essential (primary) hypertension; I48.91 Unspecified atrial fibrillation; Z95.1 Presence of aortocoronary bypass graft
CPT/HCPCS: 93005; 85025; 80048; 36415; 84484; 83880; 73700; 71045; 73610; 99285; J2405

== ENCOUNTER 2024-05-06 01:32 | Inpatient (IN) | payer OTHER ==
[2024-05-06] MEDS ORDERED: ACETAMINOPHEN 500 MG TAB ONE (02:01)
[2024-05-06 02:58] LABS: Absolute Basophils 0.1 K/uL (0-0.5); Absolute Eosinophils 0.6 K/uL (0-0.5); Absolute Lymphocytes (CBC) 0.9 K/uL (0.7-4.9); Absolute Monocytes 0.6 K/uL (0.1-1.3); Absolute Neutrophil 6.9 K/uL (1.8-8.0); Basophils % 1.1 % (0-1.3); Eosinophils % 6.7 % (0-4.4); Hematocrit 35.1 % (36.0-45.0); Hemoglobin 11.6 g/dL (12.0-15.0); Lymphocytes % 10.2 % (15.3-44.8); MCH 30.8 pg (27.0-35.0); MCHC 33.1 g/dL (32.0-36.0); MPV 7.7 fL (7.6-11.3); Monocytes % 6.8 % (3.3-12.3); Neutrophils % 75.2 % (41.7-73.7); Nucleated Red Blood Cells % 0.1 % (0-0); Platelets 209 thou/uL (152-406); RBC Red Blood Cell Count 3.77 M/uL (3.86-4.86); Red Cell Distribution Width 15.8 % (12.1-15.2)
[2024-05-06 03:01] LABS: PTT, Activated Partial Thromb 23.6 SECONDS (24.3-36.9); Protime INR 1.24
[2024-05-06 03:09] LABS: Albumin 3.3 g/dL (3.4-5.0); Albumin/Globulin Ratio 0.9 (1.1-1.8); Anion Gap 9.1 mEq/L (5.0-15.0); Bilirubin Total 0.5 mg/dL (0.2-1.0); Globulin 3.8 g/dL (2.3-3.5); Potassium 4.1 mEq/L (3.5-5.1); Protein, Total 7.1 g/dL (6.4-8.2); Troponin High Sensitivity 8.4 pg/mL (<58.9)
--- NOTE | 2024-05-06 03:43 | EDPHYS ---
Physician Documentation [facility] Name: Kandice Elizabeth Age: 68 yrs Sex: Female : 1955 Arrival Date: 05/06/2024 Time: 01:32 Bed 5 Private MD: ED Physician Federico Bess HPI: 05/06 01:52 This 68 yrs old Female presents to ER via EMS with complaints of Shortness Of ec2 Breath. 01:52 Patient with history of CHF, COPD arrives today for evaluation of progressive shortness ec2 of breath as well as bilateral lower extremity edema. Patient reports cough and congestion as well as green productive sputum. Reports no fevers or chills or nausea or vomiting. States that she recently tried a Z-Vincent without improvement in symptoms.. Historical: - Allergies: 01:49 Amoxicillin; vc1 - PMHx: 01:49 Atrial Fib; Brain bleed; CAD; CHF; COPD; Diabetes - IDDM; Hypertension; vc1 - PSHx: 01:49 Bipass; Heart ablasion; vc1 - Immunization history:: Client reports having NOT received the Covid vaccine. Flu vaccine is not up to date. - Infectious Disease History:: Denies. - Social history:: Smoking status: Patient denies any tobacco usage or history of. ROS: 01:53 Constitutional: as per hpi ec2 Exam: 01:53 Constitutional: GEN: NAD Head: atraumatic Eyes: EOMI Ears: External ears are ec2 normal. CV: tachycardia, 2+ lower extremity edema bilaterally LUNGS: no respiratory distress ABD: non-distended SKIN: no evidence of rashes MSK: no evidence of trauma Vital Signs: 01:46 BP 133 / 96; Pulse 101; Resp 20; Temp 98.5; Pulse Ox 97% ; Weight 102.06 kg; Height 4 vc1 ft. 10 in. ; 02:30 BP 139 / 96; Pulse 105; Resp 18; Pulse Ox 96% ; br2 02:30 BP 128 / 77; Pulse 99; Resp 18; Pulse Ox 95% ; br2 05:10 BP 135 / 72; Pulse 93; Resp 18 S; Pulse Ox 97% on R/A; br2 01:46 Body Mass Index 47.02 (102.06 kg, 147.32 cm) vc1 MDM: 01:40 Medical Screening Exam initiated ec2 01:53 Data reviewed: vital signs, nurses notes. ED course: Patient arrives today for ec2 evaluation of shortness of breath. Examination is revealing for slight tachycardia. Will obtain a cardiac workup. Suspect volume overload.. 02:12 ED course: EKG independently reviewed and interpreted by me, shows atrial fibrillation, ec2 rate of 100, no acute ST segment elevations, intervals are nonactionable.. 03:39 ED course: Metabolic profile shows renal dysfunction with a creatinine of 1.58. BNP ec2 elevated at 1140. Lactic acid within normal ranges.. 03:39 ED course: Given the patient's lower extremity edema as well as elevated BNP. I suspect ec2 volume overload.. 03:39 ED course: Chest x-ray independently reviewed and interpreted by me, shows cardiomegaly ec2 as well as vascular congestion.. 03:41 ED course: Will admit for diuresis. Patient with CHF, has been taking increased doses ec2 of her Lasix at home. Discussed with hospitalist, pending admission.. 02 01:52 Order name: Blood Culture Adult (2) ec2 05/06 01:52 Order name: CBC with Diff; Complete Time: 03:08 ec2 05/06 01:52 Order name: CMP; Complete Time: 03:38 ec2 05/06 01:52 Order name: Lactate w/ 2H reflex if indic.; Complete Time: 03:38 ec2 05/06 01:52 Order name: Protime (+inr); Complete Time: 03:08 ec2 05/06 01:52 Order name: Ptt, Activated; Complete Time: 03:08 ec2 05/06 01:52 Order name: BNP; Complete Time: 03:38 ec2 05/06 01:52 Order name: Troponin High Sensitivity; Complete Time: 03:38 ec2 05/06 03:23 Order name: Glucose, Ancillary Testing; Complete Time: 03:38 EDMS 05/06 04:48 Order name: Urinalysis w/ reflexes EDMS 05/06 04:55 Order name: Urinalysis w/ reflexes EDMS 05/06 04:55 Order name: CBC with Automated Diff EDMS 05/06 04:55 Order name: CBC with Automated Diff EDMS 05/06 04:55 Order name: Comprehensive Metabolic Panel EDMS 05/06 04:55 Order name: Comprehensive Metabolic Panel EDMS 05/06 01:52 Order name: Chest Single View XRAY ec2 05/06 04:57 Order name: Echo with Doppler EDMS 05/06 01:52 Order name: Accucheck; Complete Time: 03:25 ec2 05/06 01:52 Order name: Cardiac monitoring; Complete Time: 03:05 ec2 05/06 01:52 Order name: EKG - Nurse/Tech; Complete Time: 03:05 ec2 05/06 01:52 Order name: IV Saline Lock - Large Bore; Complete Time: 03:25 ec2 05/06 01:52 Order name: Labs collected and sent; Complete Time: 03:25 ec2 05/06 01:52 Order name: O2 Per Protocol; Complete Time: 57 ec2 05/06 01:52 Order name: O2 Sat Monitoring; Complete Time: :57 ec2 05/06 01:52 Order name: Vital Signs; Complete Time: 01:57 ec2 Administered Medications: 03:25 Not Given (Patient Refused): [id number] mg PO once vc1 04:19 Drug: Furosemide IVP 40 mg IVP once; give over 2 minutes Route: IVP; Site: left forearm;br2 05:28 Follow up: Response: No adverse reaction br2 Disposition Summary: 05/06/24 03:42 Hospitalization Ordered Notes: Hospitalization Status: Inpatient Admission ec2 Provider: Azar Bahena ec2 [facility] ec2 Condition: Stable ec2 Problem: an acute exacerbation ec2 Symptoms: have improved ec2 Bed/Room Type: Standard ec2 Room Assignment: 410(05/06/24 05:09) cg Diagnosis - Heart failure, unspecified ec2 Forms: - Medication Reconciliation Form ec2 - SBAR form ec2 - Leadership Thank You Letter ec2 Signatures: Dispatcher [employer] Laina Ron RN RN cg Kimberly Sky RN RN vc1 Federico Bess MD MD ec2 Samanta Roman RN RN br2 Corrections: (The following items were deleted from the chart) 01:52 01:52 BLOOD CULTURE*+BA.LAB.BRZ ordered. EDOR EDMS 01:52 01:52 CBC+H.LAB.BRZ ordered. EDOR EDMS 01:52 01:52 COMPREHENSIVE METABOLIC PANEL+C.LAB.BRZ ordered. EDMS EDMS 01:52 01:52 LACTATE+C.LAB.BRZ ordered. EDMS EDMS 01:52 01:52 PROTIME (+INR)+COAG.LAB.BRZ ordered. EDMS EDMS 01:52 01:52 PTT, ACTIVATED+COAG.LAB.BRZ ordered. EDMS EDMS 01:52 01:52 PROBNP+C.LAB.BRZ ordered. EDMS EDMS 01:52 01:52 Troponin High Sensitivity+C.LAB.BRZ ordered. EDMS EDMS 01:52 01:52 Chest Single View+RAD.RAD.BRZ ordered. EDMS EDMS 01:54 01:53 Constitutional: GEN: NAD Head: atraumatic Eyes: EOMI Ears: External ears are ec2 normal. CV: regular rate, 2+ lower extremity edema bilaterally LUNGS: no respiratory distress ABD: non-distended SKIN: no evidence of rashes MSK: no evidence of trauma ec2 05:09 03:42 ec2 cg
--- NOTE | 2024-05-06 03:43 | ER ---
Nurse's Notes [facility] Name: Kandice Elizabeth Age: 68 yrs Sex: Female : 1955 Arrival Date: 05/06/2024 Time: 01:32 Bed 5 Private MD: Diagnosis: Heart failure, unspecified Presentation: 05/06 01:46 Chief complaint: EMS states: Called from home for SOB when we arrived O2 was 92-93%. vc1 Coronavirus screen: Vaccine status: Patient reports being unvaccinated. Client denies travel out of the [place] in the last 14 days. At this time, the client does not indicate any symptoms associated with coronavirus-19. Ebola Screen: Patient negative for fever greater than or equal to 101.5 degrees Fahrenheit, and additional compatible Ebola Virus Disease symptoms Patient denies exposure to infectious person. Patient denies travel to an Ebola-affected area in the 21 days before illness onset. No symptoms or risks identified at this time. Initial Sepsis Screen: Does the patient meet any 2 criteria? No. Patient's initial sepsis screen is negative. Does the patient have a suspected source of infection? No. Patient's initial sepsis screen is negative. Risk Assessment: Do you want to hurt yourself or someone else? Patient reports no desire to harm self or others. Onset of symptoms is unknown. Care prior to arrival: None. Activity prior to arrival: None. Mechanism of Injury: No Mechanism of Injury. 01:46 Method Of Arrival: EMS: [facility] vc1 01:46 Acuity: COLBY 3 vc1 Triage Assessment: 01:50 General: Appears in no apparent distress. uncomfortable, obese, well developed, vc1 Behavior is calm, cooperative, appropriate for age. Pain: Complains of pain in right foot and left foot. EENT: No deficits noted. No signs and/or symptoms were reported regarding the EENT system. Neuro: Level of Consciousness is awake, alert, obeys commands, Oriented to person, place, time, situation, Appropriate for age. Cardiovascular: Heart tones S1 S2 present Capillary refill < 3 seconds Rhythm is sinus tachycardia. Respiratory: Reports shortness of breath at rest Breath sounds are clear bilaterally. Onset: The symptoms/episode began/occurred at an unknown time. the patient has mild shortness of breath. GI: Abdomen is round obese. : No deficits noted. No signs and/or symptoms were reported regarding the genitourinary system. Derm: Skin is intact, is healthy with good turgor, Skin is dry, Skin is normal, Skin temperature is warm. Musculoskeletal: Circulation, motion, and sensation intact. Range of motion: intact in all extremities. Historical: - Allergies: 01:49 Amoxicillin; vc1 - PMHx: :49 Atrial Fib; Brain bleed; CAD; CHF; COPD; Diabetes - IDDM; Hypertension; vc1 - PSHx: :49 Bipass; Heart ablasion; vc1 - Immunization history:: Client reports having NOT received the Covid vaccine. Flu vaccine is not up to date. - Infectious Disease History:: Denies. - Social history:: Smoking status: Patient denies any tobacco usage or history of. Screenin:49 [facility] ED Fall Risk Assessment (Adult) History of falling in the last 3 months, vc1 including since admission No falls in past 3 months (0 pts) Confusion or Disorientation No (0 pts) Intoxicated or Sedated No (0 pts) Impaired Gait Yes (1 pt) Mobility Assist Device Used No (0 pt) Altered Elimination No (0 pt) Score/Fall Risk Level 0 - 2 = Low Risk Oriented to surroundings, Maintained a safe environment, Educated pt \T\ family on fall prevention, incl call for assistance when getting out of bed. Abuse screen: Denies threats or abuse. Nutritional screening: No deficits noted. Tuberculosis screening: No symptoms or risk factors identified. Assessment: 01:52 Cardiovascular: Reports shortness of breath, Denies chest pain, Capillary refill < 3 vc1 seconds Patient's skin is warm and dry. Rhythm is sinus tachycardia. Respiratory: Airway. Respiratory: Airway is patent Respiratory effort is even, unlabored, Respiratory pattern is regular, symmetrical. 05:10 Reassessment: Patient and/or family updated on plan of care and expected duration. Pain br2 level reassessed. Patient is alert, oriented x 3, equal unlabored respirations, skin warm/dry/pink. Patient states symptoms have improved. Vital Signs: 01:46 BP 133 / 96; Pulse 101; Resp 20; Temp 98.5; Pulse Ox 97% ; Weight 102.06 kg; Height 4 vc1 ft. 10 in. ; 02:30 BP 139 / 96; Pulse 105; Resp 18; Pulse Ox 96% ; br2 02:30 BP 128 / 77; Pulse 99; Resp 18; Pulse Ox 95% ; br2 05:10 BP 135 / 72; Pulse 93; Resp 18 S; Pulse Ox 97% on R/A; br2 01:46 Body Mass Index 47.02 (102.06 kg, 147.32 cm) vc1 ED Course: 01:32 Patient arrived in ED. [id number] 01:40 Federico Bess MD is Attending Physician. ec2 01:49 Triage completed. vc1 01:49 Arm band placed on right wrist. vc1 01:50 Patient has correct armband on for positive identification. Bed in low position. Call vc1 light in reach. Provided Education on: Call light. Pulse ox on. NIBP on. 01:56 Kimberly Sky, RN is Primary Nurse. vc1 02:03 Inserted saline lock: 22 gauge in left forearm, using aseptic technique. br2 02:36 Chest Single View XRAY In Process Unspecified. EDMS 03:07 EKG done, by ED staff. vk 03:42 Azar Bahena MD is Hospitalizing Provider. ec2 05:23 No provider procedures requiring assistance completed. Patient admitted, IV remains in vc1 place. Administered Medications: 03:25 Not Given (Patient Refused): [id number] mg PO once vc1 04:19 Drug: Furosemide IVP 40 mg IVP once; give over 2 minutes Route: IVP; Site: left forearm;br2 05:28 Follow up: Response: No adverse reaction br2 Medication: 01:55 VIS not applicable for this client. vc1 Outcome: 03:42 Decision to Hospitalize by Provider. ec2 05:23 Condition: good vc1 05:23 Instructed on the need for admit, 06:03 Admitted to Tele accompanied by tech, via stretcher, room 410, with chart, Report vc1 called to Elva Duenas RN 06:04 Patient left the ED. vc1 Signatures: Dispatcher [employer] EDMS Meri Edwards [email or web address] Kimberly Sky, RN RN vc1 Federico Bess MD MD ec2 Giovana Cintron Belinda, RN RN br2 Corrections: (The following items were deleted from the chart) 04:22 04:20 BP 139 / 96; Pulse 105bpm; Resp 18bpm; Pulse Ox 96%; br2 br2
[2024-05-06] MEDS ORDERED: FUROSEMIDE 40 MG/4 ML VIAL ONE (04:15)
--- NOTE | 2024-05-06 04:50 | P.HP ---
Certification for Inpatient Patient admitted to: Inpatient With expected LOS: >2 Midnights Practitioner: I am a practitioner with admitting privileges, knowledge of patient current condition, hospital course, and medical plan of care. Services: Services provided to patient in accordance with Admission requirements found in Title 42 Section 412.3 of the Code of Federal Regulations Patient History Date of Service: 05/06/24 Reason for admission: CHF exacerbation History of Present Illness: 68 yrs old Female with past medical history of hypertension, hyperlipidemia, chronic atrial fibrillation status post ablation, CAD status post CABG, COPD, diabetes, CHF who came to ER with shortness of breath which has been slowly getting worse over the last 2 weeks. Patient denies any chest pain. Patient has cough with yellowish sputum. Denies any fever or chills. No nausea vomiting or diarrhea. Denies any chest pain. She has been treated with Z-Vincent recently without much improvement. Patient was assessed in the ER and was admitted for further management of CHF exacerbation Allergies amoxicillin Adverse Reaction (Verified 12/09/19 12:49) Rash Home medications list reviewed: Yes Home Medications: Apixaban [Eliquis] 5 mg PO BID 12/09/19 Cetirizine HCl [Allergy Relief] 10 mg PO DAILY 12/09/19 Fluticasone Propion/Salmeterol [Advair 250-50 Diskus] 1 inh IH DAILY 12/09/19 Furosemide [Lasix*] 40 mg PO BIDL 12/09/19 Glipizide [Glipizide ER] 2.5 mg PO DAILY 12/09/19 Metoprolol Tartrate [Lopressor*] 25 mg PO BID 12/09/19 Pantoprazole Sodium [Protonix] 40 mg PO 0600 12/09/19 Pramipexole [Mirapex*] 0.25 mg PO DAILY 12/09/19 Trazodone HCl 50 mg PO BEDTIME PRN 12/09/19 Venlafaxine HCl [Venlafaxine HCl ER] 150 mg PO DAILY 12/09/19 Albuterol Neb [Proventil 0.083% Neb Soln] 2.5 mg NEB [id number] PRN #120 amp 12/15/19 Ipratropium Neb [Atrovent*] 0.5 mg NEB [id number] PRN #120 amp 12/15/19 Spironolactone [Aldactone*] 25 mg PO BID #60 tab 12/15/19 Albuterol Neb [Proventil 0.083% Neb Soln] 2.5 mg NEB Q6HP PRN amp 09/28/23 Azithromycin [Zithromax] 500 mg PO DAILY #5 tab 09/28/23 Benzonatate [Tessalon Perle*] 200 mg PO TID PRN #42 cap 09/28/23 Furosemide [Lasix*] 40 mg PO BIDL tab 09/28/23 Ipratropium Neb [Atrovent*] 0.5 mg NEB Q6H PRN amp 09/28/23 guaiFENesin [Robitussin 100MG/5ML*] 10 ml PO QID PRN #240 ml 09/28/23 - Past Medical/Surgical History Diabetic: Yes Past Medical History: Reviewed- Non-Contributory -: DM 2 -: HTN -: COPD -: Restless leg syndrome -: restless leg syndrome -: obst airway per signif other. -: CAD Past Surgical History: Reviewed- Non-Contributory -: Cardiac surgery -: Brain surgery for aneurysm - Family History Family History: Reviewed- Non-Contributory - Social History Smoking Status: Former smoker Alcohol use: No CD- Drugs: No Caffeine use: No Review of Systems 10-point ROS is otherwise unremarkable Physical Examination - Vital Signs Temperature: 98.2 F Blood Pressure: 140/76 Pulse: 78 Respirations: 18 Pulse Ox (%): 94 - Physical Exam General: Alert, Oriented x3, Mild distress HEENT: Atraumatic, Normocephalic Neck: Supple, No Thyromegaly Respiratory: Diminished, Crackles/rales Cardiovascular: Regular rate/rhythm, Normal S1 S2 Capillary refill: <2 Seconds Gastrointestinal: Soft and benign, W/out hepatosplenomegaly Musculoskeletal: No clubbing, No swelling Integumentary: No rashes Neurological: Normal speech, Normal strength at 5/5 x4 extr, Cranial nerves 3-12 intact, Normal reflexes 2+ Lymphatics: No axilla or inguinal lymphadenopathy - Studies Laboratory Data (last 24 hrs) 05/06/24 05/06/24 05/06/24 02:25 02:25 02:25 WBC 9.20 Hgb 11.6 L Hct 35.1 L Plt Count 209 PT 13.0 H INR 1.24 APTT 23.6 L Sodium 140 Potassium 4.1 BUN 33 H Creatinine 1.58 H Glucose 119 H Total Bilirubin 0.5 AST 18 ALT 22 Alkaline Phosphatase 127 H Assessment and Plan - Plan Acute on chronic CHF possibly systolic/diastolic Monitor closely on telemetry Started on aggressive diuresis X-ray findings consistent with CHF Oxygen supplementation Will try to wean down oxygen requirement Continue home medications Titrate as needed Will obtain an echocardiogram Cardiology consult Bronchitis/pneumonitis Started on IV antibiotics Antitussives Hypertension Antihypertensives titrated Continue home medications and titrate as needed Hyperlipidemia Continue statin CKD stage II Monitor renal parameters Electrolytes monitor and replace accordingly Diabetes Insulin sliding scale Accu-Chek before every meal and at bedtime History of atrial fibrillation History of CAD Status post ablation Continue home medications and titrate as needed GI/DVT prophylaxis Advanced directive full code Discharge Plan: Home Plan to discharge in: 48 Hours - Advance Directives Does patient have a Living Will: No Does patient have a Durable POA for Healthcare: No - Code Status/Comfort Care Code Status: Full Code Time Spent Managing Pts Care (In Minutes): 48
[2024-05-06] MEDS ORDERED: ALBUTEROL 2.5 MG/3 ML NEB SOL NEB PRN ×2 (04:52→07:42)
[2024-05-06] MEDS ORDERED: ONDANSETRON 4 MG/2 ML VIAL IV PRN (04:52)
[2024-05-06] MEDS ORDERED: BENZONATATE 100 MG CAP PO PRN (04:55)
[2024-05-06] MEDS ORDERED: guaiFENesin 100 MG/5 ML UCUP PO PRN (04:55)
[2024-05-06] MEDS ORDERED: IPRATROPIUM BROM 0.5MG/2.5ML NEB PRN ×2 (04:55→07:46)
[2024-05-06] MEDS ORDERED: TRAZODONE 50 MG TABLET PO PRN (04:55)
[2024-05-06] MEDS: FUROSEMIDE 40 MG/4 ML VIAL IV SCH (05:00)
[2024-05-06] MEDS ORDERED: ACETAMINOPHEN 325 MG TABLET PO PRN (06:00)
[2024-05-06] MEDS: CEFTRIAXONE 1,000 MG in NA CHLORIDE 0.9% 50 ML IVPB SCH (06:33)
[2024-05-06] MEDS: PANTOPRAZOLE 40MG TABLET PO SCH (06:33)
--- NOTE | 2024-05-06 06:44 | RAD REPORT ---
EXAM DESCRIPTION: Chest Single View CLINICAL HISTORY: COUGH COMPARISON: None TECHNIQUE: Single AP view of the chest. FINDINGS: Median sternotomy changes. Lung volumes adequate. Cardiac silhouette is mildly enlarged. Mild bilateral interstitial thickening. No pneumothorax. No large pleural effusion. No focal consolidation. No acute bony finding. IMPRESSION: 1. Mild bilateral interstitial thickening, could represent mild pulmonary edema. 2. Mildly enlarged cardiac silhouette. Electronically signed by: Jailene Doll MD 05/06/2024 06:32 AM [facility] [id number] Due to temporary technical issues with the PACS/Avolent reporting system, reports are being kelly d by the in-house radiologist without review as a courtesy to ensure prompt reporting the interpreting radiologist is fully responsible for the content of the report. Transcribed Date/Time: 05/06/2024 6:44 AM
[2024-05-06] MEDS ORDERED: [UNRECOGNIZED DRUG - REMARK] PO SCH (09:00)
[2024-05-06] MEDS: SALMETEROL IH SCH (09:00)
[2024-05-06] MEDS ORDERED: HOME MED 1 EA UNK (Venlafaxine Hcl [Venlafaxine Hcl Er] 150 MG Cap.Er.24h) PO SCH (09:00)
[2024-05-06] MEDS: FLUTICASONE PROPION IH SCH (09:00)
[2024-05-06] MEDS: [UNRECOGNIZED DRUG - OTHER] IH SCH (09:00)
[2024-05-06] MEDS ORDERED: PRAMIPEXOLE 0.25 MG TAB PO SCH (09:00)
[2024-05-06] MEDS ORDERED: METOPROLOL TAR 25 MG TAB PO SCH (09:00)
[2024-05-06] MEDS ORDERED: SPIRONOLACTONE 25 MG TABLET PO SCH (09:00)
--- NOTE | 2024-05-06 09:03 | P.PN ---
Date of Service: 05/06/24 Subjective: reports 2-3 weeks of worsening SOB, lower extremity edema, cough She was recently seen in ER ~1 week ago for similar symptoms. Patient completed Z-pack but didn't feel much improvement currently in a-fib; HR 90-100s. afebrile ROS: 10 point ROS as noted above, otherwise negative Physical Exam: GEN: Alert, oriented, NAD CV: Regular rate and rhythm, no edema Pulm: Nonlabored respirations on room air, clear bilaterally ABD: soft, nontender, nondistended Integumentary: No rashes Neuro: Normal speech, normal affect Problem List: Acute on chronic CHF Chronic a-fib s/p ablation Cough Chronic COPD NIDDM2 Hypertension Hyperlipidemia Hx of CAD s/p CABG Hx of Brain bleed Acute on chronic CHF on admission, presents with progressively worsening SOB and lower extremity edema over the last 2-3 weeks. +productive cough CXR (05/06): Mild bilateral interstitial thickening. Mildly enlarged cardiac silhouette. continue IV lasix 40 mg q8h Echo ordered to eval EF / stenosis Cardiology consulted Chronic a-fib s/p ablation Hx of prior ablation ~2-3 years ago. Has been off Eliquis for ~2 years currently in a-fib; HR 90-100s Monitor on telemtry Cardiology consulted continue home metoprolol start sotalol per cardio Possible SANG-guided DCCV tomorrow. Patient hesitant about procedure, wanting to talk to spouse first before proceeding NPO at midnight if patient agreeable Cough She was recently seen in ER ~1 week ago for similar symptoms. Patient felt minimal improvement after finishing Z-nette Cough likely related to CHF/COPD vs infection Start rocephin to cover possible bacterial infection (05/06-) Follow blood cultures PRN andrea urbina Chronic COPD NIDDM2 Hypertension Hyperlipidemia Hx of CAD s/p CABG confirm home meds, restart as appropriate resume home statin, plavix, protonix VTE: eliquis Code: Full Dispo: Home Time Spent Managing Pts Care (In Minutes): 55
[2024-05-06] MEDS: APIXABAN 5 MG TABLET PO SCH (09:15)
[2024-05-06] MEDS: CLOPIDOGREL 75 MG TABLET PO SCH (09:16)
[2024-05-06] MEDS: SOTALOL HCL 80 MG TAB PO SCH (09:16)
[2024-05-06] MEDS: AZITHROMYCIN IV 500 MG in NA CHLORIDE 0.9% 250 ML IVPB SCH (09:17)
[2024-05-06] MEDS: METOPROLOL XL 50 MG TAB PO SCH (09:17)
--- NOTE | 2024-05-06 10:06 | P.CNS ---
Date of Consult: 05/06/24 Chief Complaint: CHF exacerbation History of Present Illness: Patient with PMH of HTN, HLD, CAD s/p CABG, Atrial fibrillation s/p ablation almost 2 years ago, presented with worsening SOB, ROBBINS and lower extremities swelling, denies chest pain, no palpitations, no syncope. Allergies amoxicillin Adverse Reaction (Verified 12/09/19 12:49) Rash Home medications list reviewed: Yes Home Medications: Apixaban [Eliquis] 5 mg PO BID 12/09/19 Fluticasone Propion/Salmeterol [Advair 250-50 Diskus] 1 inh IH BID 12/09/19 Albuterol Inhaler [Ventolin Inhaler*] 2 puff IH Q6HP PRN 05/06/24 Atorvastatin Calcium 10 mg PO BEDTIME 05/06/24 Clopidogrel Bisulfate [Plavix] 75 mg PO DAILY 05/06/24 Furosemide 40 mg PO DAILY 05/06/24 Ipratropium/Albuterol Sulfate [Iprat-Albut 0.5-3(2.5) mg/3 ml] 3 ml IH Q6H 05/06/24 Lisinopril [Zestril] 10 mg PO DAILY 05/06/24 Metoprolol Succinate [Toprol Xl] 50 mg PO DAILY 05/06/24 - Past Medical/Surgical History Diabetic: Yes -: DM 2 -: HTN -: COPD -: Restless leg syndrome -: restless leg syndrome -: obst airway per signif other. -: CAD -: Cardiac surgery -: Brain surgery for aneurysm - Social History Smoking Status: Unknown if ever smoked Alcohol use: No CD- Drugs: No Caffeine use: No Place of Residence: Home Review of Systems 10-point ROS is otherwise unremarkable Physical Examination Temp Pulse Resp BP Pulse Ox 98.0 F 97 H 17 148/78 H 95 05/06/24 08:00 05/06/24 09:17 05/06/24 08:00 05/06/24 09:17 05/06/24 08:00 General: Alert, In no apparent distress HEENT: Atraumatic, PERRLA, Mucous membr. moist/pink, EOMI, Sclerae nonicteric Neck: Supple, 2+ carotid pulse no bruit, No LAD, Without JVD or thyroid abnormality Respiratory: Normal air movement, Crackles/rales Cardiovascular: Edema, Irregular heart rate/rhythm Gastrointestinal: Normal bowel sounds, No tenderness Musculoskeletal: No tenderness Integumentary: No rashes Neurological: Normal gait, Normal speech, Normal tone, Normal affect Lymphatics: No axilla or inguinal lymphadenopathy Laboratory Data (last 24 hrs) 05/06/24 02 02 02:25 02:25 02:25 WBC 9.20 Hgb 11.6 L Hct 35.1 L Plt Count 209 PT 13.0 H INR 1.24 APTT 23.6 L Sodium 140 Potassium 4.1 BUN 33 H Creatinine 1.58 H Glucose 119 H Total Bilirubin 0.5 AST 18 ALT 22 Alkaline Phosphatase 127 H - Problems (1) Atrial fibrillation with RVR Current Visit: No Status: Acute Plan: Patient report history of ablation 2 years ago in medical center, patient EKG and tele shows she is in AF, rate of 100s, start Sotalol 80 mg po BID (EKG after 3rd dose). continue Eliquis 5 mg po BID discussed SANG DCCV with patient but she is hesitant about it and want to talk to her first, if patient agrees then please keep NPO after midnight for SANG DCCV. (2) Congestive heart failure Current Visit: No Status: Acute Plan: agree with Lasix 40 mg IV [id number] monitor input and output and electrolytes get Echo continue Toprol XL 50 mg daily will consider adding Aldactone, Entresto and Farxiga after diuresis. Qualifiers: Heart failure type: right-sided Heart failure chronicity: chronic Qualified Code(s): I50.812 - Chronic right heart failure (3) CAD (coronary artery disease) of artery bypass graft Current Visit: Yes Status: Acute Plan: no chest pain or troponin leak continue ASA 81 mg daily Outpatient follow up with cardiology.
--- NOTE | 2024-05-06 11:43 | EKG ---
Test Date: 2024-05-06 Test Time: 02:10:32 Chefs: WILL MEASUREMENT RESULTS: Intervals: Rate: 100 IA: QRSD: 74 QT: 356 QTc: 459 [place]: P: IA: QRS: 110 T: -40 INTERPRETIVE STATEMENTS: Atrial fibrillation T wave abnormality, consider inferior ischemia or digitalis effect Abnormal ECG Compared to ECG 05/01/2024 07:57:40 Possible ischemia now present Atrial flutter no longer present Right-axis deviation no longer present Prolonged QT interval no longer present T-wave abnormality still present Electronically Signed On 05-06-24 11:43:30 BODY STYLIST by Joe Padgett
[2024-05-06] MEDS: FLU (Fluarix Triv) TS24-25(6MOS UP)/PF 45 MCG/0.5 ML Syringe IM ONE (12:00)
[2024-05-06] MEDS: PNEUMOCOCCAL VACCINE 0.5 ML IMVAC ONE (12:00)
--- NOTE | 2024-05-06 13:43 | ECHO ---
HEIGHT: 4 ft 10 in WEIGHT: 102 lb 0.96 oz DATE OF STUDY: 05/06/[address]: Neel Bahena DO 2-DIMENSIONAL: YES M.MODE: YES DOPPLER: YES COLOR FLOW: YES TDS: PORTABLE: DEFINITY: BUBBLE STUDY: DIAGNOSIS: CONGESTIVE HEART FAILURE CARDIAC HISTORY: CATHERIZATION: SURGERY: PROSTHETIC VALVE: PACEMAKER: MEASUREMENTS (cm) DIASTOLIC (NORMALS) SYSTOLIC (NORMALS) IVSd 1.0 (0.6-1.2) LA Diam 3.6 (1.9-4.0) LVEF 60-65% LVIDd 3.7 (3.5-5.7) LVIDs 2.9 (2.0-3.5) %FS LVPWd 1.2 (0.6-1.2) Ao Diam 2.9 (2.0-3.7) 2 DIMENSIONAL ASSESSMENT: RIGHT ATRIUM: NORMAL LEFT ATRIUM: SEVERELY DILATED RIGHT VENTRICLE: NORMAL LEFT VENTRICLE: NORMAL TRICUSPID VALVE: MILD TRICUSPID REGURGITATION MITRAL VALVE: MILD MITRAL REGURGITATION PULMONIC VALVE: NORMAL AORTIC VALVE: NORMAL PERICARDIAL EFFUSION: NONE AORTIC ROOT: NORMAL LEFT VENTRICULAR WALL MOTION: NORMAL DOPPLER/COLOR FLOW: DIASTOLIC DYSFUNCTION COMMENTS: 1. NORMAL LEFT VENTRICULAR SYSTOLIC FUNCTION, EJECTION FRACTION 60-65%, NORMAL WALL MOTION 2. DIASTOLIC DYSFUNCTION 3. PULMONARY HYPERTENSION (RIGHT VENTRICULAR SYSTOLIC PRESSURE 45 mmHg PLUS RIGHT ATRIAL PRESSURE) 4. NO APICAL VIEWS, PATIENT REFUSED, CANNOT ESTIMATE FILLING PRESSURE. TECHNOLOGIST: SAURABH HILL
[2024-05-06] MEDS ORDERED: GLUCAGON 1 MG/VIAL IM PRN (20:20)
[2024-05-06] MEDS ORDERED: D10W 125 ML IV PRN (20:20)
[2024-05-06] MEDS: ATORVASTATIN 10 MG TAB PO SCH (20:36)
[2024-05-06] MEDS: INSULIN REGULAR (HUMAN) 100 UNIT/ML SQ SCH (20:37)
[2024-05-07 07:07] LABS: Absolute Basophils 0.1 K/uL (0-0.5); Absolute Eosinophils 0.6 K/uL (0-0.5); Absolute Lymphocytes (CBC) 1.3 K/uL (0.7-4.9); Absolute Neutrophil 7.6 K/uL (1.8-8.0); Basophils % 1.2 % (0-1.3); Eosinophils % 5.5 % (0-4.4); Hematocrit 37.9 % (36.0-45.0); Hemoglobin 12.3 g/dL (12.0-15.0); Lymphocytes % 12.4 % (15.3-44.8); MCH 29.5 pg (27.0-35.0); MCHC 32.4 g/dL (32.0-36.0); MCV 90.8 fL (80-100); MPV 8.1 fL (7.6-11.3); Monocytes % 9.2 % (3.3-12.3); Neutrophils % 71.7 % (41.7-73.7); Nucleated Red Blood Cells % 0.4 % (0-0); Platelets 242 thou/uL (152-406); RBC Red Blood Cell Count 4.17 M/uL (3.86-4.86); Red Cell Distribution Width 16.1 % (12.1-15.2)
[2024-05-07 07:58] LABS: Albumin 3.4 g/dL (3.4-5.0); Albumin/Globulin Ratio 0.8 (1.1-1.8); Anion Gap 7.3 mEq/L (5.0-15.0); Bilirubin Total 0.5 mg/dL (0.2-1.0); Globulin 4.1 g/dL (2.3-3.5); Magnesium 2.5 mg/dL (1.6-2.4); Phosphorus 2.5 mg/dL (2.5-4.9); Potassium 4.3 mEq/L (3.5-5.1); Protein, Total 7.5 g/dL (6.4-8.2)
[2024-05-07 09:44] LABS: Anisocytosis SLIGHT; Blood Morphology Comment NOTED (NOT SEEN); Macrocytosis SLIGHT; Platelet Estimate ADEQ; White Blood Cell Scan OK (OK)
--- NOTE | 2024-05-07 10:50 | P.PN ---
Date of Service: 05/07/24 Subjective: breathing, lower extremity edema improving remains in a-fib; rate controlled in 80s still quite dyspneic on exertion feels cough/congestion improving afebrile ROS: 10 point ROS as noted above, otherwise negative Physical Exam: GEN: Alert, oriented, NAD CV: Regular rate and rhythm, no edema Pulm: Nonlabored respirations on room air, diminished bilaterally Integumentary: mild erythema lower R anterior tibial area above ankle, and ~3cm area on dorsum of R foot Neuro: Normal speech, normal affect Problem List: Acute on chronic CHF Chronic a-fib s/p ablation GI Cough Chronic COPD NIDDM2 Hypertension Hyperlipidemia Hx of CAD s/p CABG Hx of Brain bleed Acute on chronic CHF on admission, presents with progressively worsening SOB and lower extremity edema over the last 2-3 weeks. +productive cough CXR (05/06): Mild bilateral interstitial thickening. Mildly enlarged cardiac silhouette. Echo (05/06): 60-65% EF, diastolic dysfunction, pulmonary hypertension, severely dilated left atrium, mild MR, mild TR. no apical views d/t patient refusal. continue IV lasix 40 mg q8h monitor renal function Cardiology consulted Chronic a-fib s/p ablation Hx of prior ablation ~2-3 years ago. Has been off Eliquis for ~2 years Monitor on telemtry Cardiology consulted continue home metoprolol continue sotalol Tentative plan for SANG-guided DCCV if patient remains in a-fib, however patient hesitant about procedure, wanting to talk to spouse first before proceeding currently in a-fib; rate controlled in 80s GI continue to monitor renal function Creatinine slightly higher today but improved compared to few days ago continue IV lasix 40 mg q8h Cough She was recently seen in ER ~1 week ago for similar symptoms. Patient felt minimal improvement after finishing Z-nette Cough likely related to CHF/COPD vs infection continue rocephin to cover possible bacterial infection (05/06-) Follow blood cultures PRN andrea urbina Chronic COPD NIDDM2 Hypertension Hyperlipidemia Hx of CAD s/p CABG confirm home meds, restart as appropriate resume home statin, plavix, protonix VTE: eliquis Code: Full Dispo: Home, ~2 days SANG cardioversion possibly tomorrow Time Spent Managing Pts Care (In Minutes): 55
[2024-05-08 04:47] LABS: Specific Gravity 1.012 (1.005-1.030); Urine Bilirubin NEGATIVE (Negative); Urine Blood Negative (Negative); Urine Clarity Clear (Clear); Urine Color Light-Yellow (Yellow); Urine Glucose NEGATIVE (Negative); Urine Ketones NEGATIVE (Negative); Urine Microscopic Reflex YN NO UMIC; Urine Nitrite NEGATIVE (Negative); Urine Protein NEGATIVE (Negative); Urine Urobilinogen Normal (Normal); Urine pH 5.5 (5.0-7.0)
[2024-05-08 06:17] LABS: Hemoglobin 12.5 g/dL (12.0-15.0); MCH 29.4 pg (27.0-35.0); MCHC 32.1 g/dL (32.0-36.0); MCV 91.5 fL (80-100); MPV 7.9 fL (7.6-11.3); Platelets 283 thou/uL (152-406); RBC Red Blood Cell Count 4.27 M/uL (3.86-4.86); Red Cell Distribution Width 15.8 % (12.1-15.2)
[2024-05-08 06:37] LABS: Anion Gap 10.2 mEq/L (5.0-15.0); Magnesium 2.6 mg/dL (1.6-2.4); Potassium 4.2 mEq/L (3.5-5.1)
--- NOTE | 2024-05-08 07:09 | P.PN ---
Date of Service: 05/08/24 Subjective: Patient was cardioverted. However cardiology feels like patient may be fluid overloaded. However, patient does have GI with acute kidney injury. Will reassess volume status and make a decision on whether we need to give volume or continue with diuresing as patient's creatinine has increased substantially from admission. Will also notify nephrology if renal function continues to worsen. Physical Exam: Vitals: reviewed GEN: Alert, oriented, NAD CV: Regular rate and rhythm, no edema Pulm: Nonlabored respirations on room air, diminished bilaterally Integumentary: mild erythema lower R anterior tibial area above ankle, and ~3cm area on dorsum of R foot Neuro: No focal deficits Assessment: Acute on chronic CHF Chronic a-fib s/p ablation GI Cough Chronic COPD NIDDM2 Hypertension Hyperlipidemia Hx of CAD s/p CABG Hx of Brain bleed Plan: 1. Patient with atrial fibrillation status post SANG with cardioversion; patient back in sinus rhythm. Continue with sotalol. Continue with Eliquis. Outpatient cardiology follow-up 2. Patient with acute on chronic CHF; patient with normal ejection fraction with mild diastolic dysfunction. Continue with long-term diuresing as needed. Will need to get strict blood pressure control. My concern is that patient labs indicate that she is intravascularly depleted with worsening renal function. Will discuss with cardiology 3. GI; patient appears to have be dehydrated with prerenal azotemia. Will reassess volume status. Patient's on Lasix at this time. Renal function continues to worsen so I am inclined to hold the Lasix and monitor renal function closely until he stabilizes. Patient is ejection fraction is normal and patient should have appropriate renal perfusion. If renal perfusion is decreased then we may need to repeat echo and reassess etiology 4. Morbid obesity; recommend GLP-1 agonist for continued weight loss 5. Metabolic syndrome; strict blood pressure and blood sugar control 6. History of CAD status post CABG; continue with strict blood pressure control and antiplatelet therapy and statin therapy 7. History of intracranial hemorrhage; monitor neurostatus and cautiously start with Eliquis. VTE: eliquis Code: Full Dispo: Home, ~2 days SANG cardioversion possibly tomorrow Time Spent Managing Pts Care (In Minutes): 25
[2024-05-08] MEDS: NA CHLORIDE 0.9% 500 ML ONE (08:45)
[2024-05-08] MEDS ORDERED: LIDOCAINE 1% MPF 5 ML VIAL ONE (09:12)
[2024-05-08] MEDS ORDERED: propofoL 200 MG/20 ML VIAL IV ONE (09:12)
--- NOTE | 2024-05-08 14:57 | P.PN ---
Subjective Date of Service: 05/08/24 Chief Complaint: CHF exacerbation Subjective: No new changes, No C/O voiced, Tolerating diet, Ambulating, Improving Review of Systems 10-point ROS is otherwise unremarkable Physical Examination - Vital Signs Temperature: 97.9 F Blood Pressure: 141/60 Pulse: 80 Respirations: 16 Pulse Ox (%): 95 - Physical Exam General: Alert, In no apparent distress HEENT: Atraumatic, PERRLA, EOMI Neck: Supple, JVD not distended Respiratory: Clear to auscultation bilaterally, Normal air movement Cardiovascular: Regular rate/rhythm, Normal S1 S2 Gastrointestinal: Normal bowel sounds, No tenderness Musculoskeletal: No tenderness Integumentary: No rashes Neurological: Normal speech, Normal tone, Normal affect Lymphatics: No axilla or inguinal lymphadenopathy - Studies Medications List Reviewed: Yes Assessment And Plan - Current Problems (Diagnosis) (1) Atrial fibrillation with RVR Current Visit: No Status: Acute Plan: Patient report history of ablation [address] [facility], patient EKG and tele shows she is in AF, rate of 100s Patient is s/p SANG DCCV, she converted into sinus rhythm continue Sotalol 80 mg po BID. continue Eliquis 5 mg po BID (2) Congestive heart failure Current Visit: No Status: Acute Plan: continue Lasix 40 mg IV [id number] monitor input and output and electrolytes continue Toprol XL 50 mg daily will consider adding Aldactone, Entresto and Farxiga after diuresis. Qualifiers: Heart failure type: right-sided Heart failure chronicity: chronic Qualified Code(s): I50.812 - Chronic right heart failure (3) CAD (coronary artery disease) of artery bypass graft Current Visit: Yes Status: Acute Plan: no chest pain or troponin leak continue ASA 81 mg daily Outpatient follow up with cardiology.
[2024-05-08] MEDS ORDERED: D50W 25 GM/50 ML SYRINGE IV PRN (16:42)
[2024-05-08] MEDS ORDERED: HOME MED 1 EA UNK (Ipratropium/Albuterol Sulfate [Iprat-Albut 0.5-3(2.5) Mg/3 Ml] 3 ML Amp IH SCH (16:45)
[2024-05-08] MEDS: NA CHLORIDE 0.9% 250 ML IV ONE (17:36)
[2024-05-08] MEDS: NA CHLORIDE 0.9% 1,000 ML IV SCH (17:37)
[2024-05-08] MEDS: INSULIN REGULAR (HUMAN) 100 UNIT/ML SQ SCH (20:56)
[2024-05-08] MEDS: INSULIN NPH (HUMAN) 100 UNITS/ML SQ SCH (21:00)
--- NOTE | 2024-05-08 21:18 | OP ---
Date of Procedure: 05/08/2024 Surgeon: Joe Padgett Procedure Performed: Synchronized SANG cardioversion. Indication For Procedure: Atrial fibrillation. Complications: None. Estimated Blood Loss: None. Sedation: Done by Anesthesia Team. Description Of Procedure: After risks, benefits, and alternatives were explained to the patient, the patient agreed to proceed with procedure and signed informed consent. The patient was brought back to the OR. A time-out was performed. Sedation was administered by Anesthesia Team. SANG probe inser ant, images were obtained, and the SANG probe was out. Synchronized cardioversion was done with 250 j oules. The patient converted back into sinus rhythm. The patient was moved to recovery in stable co ndition. Assessment And Plan: Atrial fibrillation, status post successful SANG cardioversion. Plan is to continue sotalol and Eliquis. AYAAN/KISHA Voice ID: [id number] Report ID: [id number]
[2024-05-09 02:22] LABS: SARS-CoV-2 Antigen CONTROL BLUE LINE VIS/BG OK; SARS-CoV-2 Antigen Rapid Res Negative (Negative)
[2024-05-09 06:27] LABS: Absolute Basophils 0.1 K/uL (0-0.5); Absolute Eosinophils 0.5 K/uL (0-0.5); Absolute Lymphocytes (CBC) 1.1 K/uL (0.7-4.9); Absolute Monocytes 0.7 K/uL (0.1-1.3); Absolute Neutrophil 6.3 K/uL (1.8-8.0); Basophils % 1.3 % (0-1.3); Eosinophils % 5.9 % (0-4.4); Hematocrit 35.5 % (36.0-45.0); Hemoglobin 11.6 g/dL (12.0-15.0); Lymphocytes % 12.7 % (15.3-44.8); MCHC 32.6 g/dL (32.0-36.0); MCV 91.9 fL (80-100); MPV 7.7 fL (7.6-11.3); Monocytes % 7.9 % (3.3-12.3); Neutrophils % 72.2 % (41.7-73.7); Platelets 260 thou/uL (152-406); RBC Red Blood Cell Count 3.86 M/uL (3.86-4.86); Red Cell Distribution Width 16.1 % (12.1-15.2)
[2024-05-09 06:51] LABS: Albumin 3.5 g/dL (3.4-5.0); Albumin/Globulin Ratio 0.9 (1.1-1.8); Anion Gap 9.4 mEq/L (5.0-15.0); Bilirubin Total 0.5 mg/dL (0.2-1.0); Globulin 3.8 g/dL (2.3-3.5); Magnesium 2.7 mg/dL (1.6-2.4); Potassium 4.4 mEq/L (3.5-5.1); Protein, Total 7.3 g/dL (6.4-8.2)
[2024-05-09] MEDS: IPRATROPIUM BROM 0.5MG/2.5ML IH SCH (07:00)
[2024-05-09] MEDS: ALBUTEROL 2.5 MG/3 ML NEB SOL IH SCH (07:00)
[2024-05-09] MEDS: FUROSEMIDE 40 MG TABLET PO SCH (07:58)
[2024-05-09] MEDS: NA CHLORIDE 0.9% 500 ML IV ONE (10:43)
--- NOTE | 2024-05-09 12:19 | RAD REPORT ---
EXAMINATION: US RENAL ULTRASOUND CLINICAL INDICATION: GI TECHNIQUE: Real-time ultrasonography of the abdomen was performed. COMPARISON: No prior exam. FINDINGS: RIGHT KIDNEY: Right renal length measurement: 9.7 x 6.4 x 4.6 cm. Normal in echogenicity and size. No calculus, solid mass or hydronephrosis. LEFT KIDNEY: Left renal length measurement: 10.2 x 5.7 x 4.3 cm. Normal in echogenicity and size. No calculus, solid mass or hydronephrosis. URINARY BLADDER: Incompletely distended without gross abnormality detected. ADDITIONAL FINDINGS: None. IMPRESSION: Unremarkable renal ultrasound.
[2024-05-09] MEDS: ROPINIROLE HCL 0.25 MG TAB PO ONE (14:06)
[2024-05-09] MEDS: NA CHLORIDE 0.9% 250 ML IV ONE (14:06)
[2024-05-09] MEDS: ROPINIROLE HCL 1 MG TAB PO SCH (21:00)
--- NOTE | 2024-05-10 00:06 | P.PN ---
Date of Service: 05/09/24 Subjective: Patient's clinical status is stable. However, renal function has worsened. Creatinine has increased substantially. Will gently hydrate and see if we can reverse this. Physical Exam: Vitals: reviewed GEN: Alert, oriented, NAD CV: Regular rate and rhythm, no edema Pulm: Nonlabored respirations on room air, diminished bilaterally Integumentary: mild erythema lower R anterior tibial area above ankle, and ~3cm area on dorsum of R foot Neuro: No focal deficits Assessment: Acute on chronic CHF Chronic a-fib s/p ablation GI Cough Chronic COPD NIDDM2 Hypertension Hyperlipidemia Hx of CAD s/p CABG Hx of Brain bleed Morbid obesity Plan: Continue with plan of care as mentioned below: 1. Patient with atrial fibrillation status post SANG with cardioversion; patient back in sinus rhythm. Continue with sotalol. Continue with Eliquis. Outpatient cardiology follow-up 2. Patient with acute on chronic CHF; patient with normal ejection fraction with mild diastolic dysfunction. Continue with long-term diuresing as needed. Will need to get strict blood pressure control. My concern is that patient labs indicate that she is intravascularly depleted with worsening renal function. Will discuss with cardiology 3. GI; patient appears to have be dehydrated with prerenal azotemia. Will reassess volume status. Patient's on Lasix at this time. Renal function continues to worsen so I am inclined to hold the Lasix and monitor renal function closely until he stabilizes. Patient is ejection fraction is normal and patient should have appropriate renal perfusion. If renal perfusion is decreased then we may need to repeat echo and reassess etiology 4. Morbid obesity; recommend GLP-1 agonist for continued weight loss 5. Metabolic syndrome; strict blood pressure and blood sugar control 6. History of CAD status post CABG; continue with strict blood pressure control and antiplatelet therapy and statin therapy 7. History of intracranial hemorrhage; monitor neurostatus and cautiously start with Eliquis. VTE: eliquis Code: Full Dispo: Home, ~2 days SANG cardioversion possibly tomorrow Time Spent Managing Pts Care (In Minutes): 25
[2024-05-10 06:24] LABS: Hematocrit 32.7 % (36.0-45.0); Hemoglobin 10.6 g/dL (12.0-15.0); MCH 29.7 pg (27.0-35.0); MCHC 32.4 g/dL (32.0-36.0); MCV 91.9 fL (80-100); Platelets 229 thou/uL (152-406); RBC Red Blood Cell Count 3.55 M/uL (3.86-4.86); Red Cell Distribution Width 16.2 % (12.1-15.2)
[2024-05-10 06:45] LABS: Anion Gap 11.4 mEq/L (5.0-15.0); Magnesium 2.9 mg/dL (1.6-2.4); Potassium 4.4 mEq/L (3.5-5.1)
--- NOTE | 2024-05-10 08:22 | RAD REPORT ---
Procedure: Chest Single View HISTORY: Cough COMPARISON: May 06, 2024 FINDINGS: Mild bilateral interstitial opacities. No significant pleural effusion noted. The heart is moderately to markedly enlarged. Post surgical changes involve the chest IMPRESSION: Mild lateral interstitial lung opacities probably mild pulmonary edema
[2024-05-10] MEDS ORDERED: FLU (Fluarix Triv) TS24-25(6MOS UP)/PF 45 MCG/0.5 ML Syringe IM ONE (09:00)
[2024-05-10] MEDS ORDERED: PNEUMOCOCCAL VACCINE 0.5 ML IMVAC ONE (09:00)
[2024-05-10 09:37] VITALS: BMI 42.0
--- NOTE | 2024-05-10 12:32 | P.PN ---
Date of Service: 05/10/24 Subjective: still dealing with intermittent shortness of breath, fatigue doesn't feel lasix is working as well refusing IV fluids this morning denies constipation ROS: 10 point ROS as noted above, otherwise negative Physical Exam: GEN: Alert, oriented, NAD CV: Regular rate and rhythm, no edema Pulm: Nonlabored respirations on room air, diminished ABD: soft, nontender, nondistender Neuro: Normal speech, normal affect Problem List: Acute on chronic CHF GI Chronic a-fib s/p prior ablation; now s/p cardioversion (05/08) Cough Chronic COPD NIDDM2 Hypertension Hyperlipidemia Hx of CAD s/p CABG Hx of Brain bleed Acute on chronic CHF GI on admission, presents with progressively worsening SOB and lower extremity edema over the last 2-3 weeks. +productive cough CXR (05/06): Mild bilateral interstitial thickening. Mildly enlarged cardiac silhouette. echo (05/06): normal EF, normal wall motion, diastolic dysfunction, pulmonary hypertension. renal u/s (05/09): unremarkable. Cardiology and nephrology are consulted. repeat CXR with mild bilateral interstitial opacities, similar to past CXR IV Lasix 40 mg q8h briefly stopped 05/08. restarted orally @40 mg daily 05/09 renal function uptrending since admission, BUN 84 dc lasix (05/10) give IVF Chronic a-fib s/p prior ablation; now s/p cardioversion (05/08) Hx of prior ablation ~2-3 years ago. Previously off Eliquis for ~2 years prior to this hospitalization. Monitor on telemtry Cardiology consulted continue sotalol, metoprolol, eliquis. stop plavix as patient is now on eliquis. s/p successful SANG DCCV (05/08), converted back into sinus rhythm Cough She was recently seen in ER ~1 week ago for similar symptoms. Patient felt minimal improvement after finishing Z-nette Cough likely related to CHF/COPD vs infection continue rocephin to cover possible bacterial infection (05/06-) Follow blood cultures - NGTD PRN andrea urbina Chronic COPD NIDDM2 Hypertension Hyperlipidemia Hx of CAD s/p CABG confirm home meds, restart as appropriate resume home statin, plavix, protonix VTE: eliquis Code: Full Dispo: Home Time Spent Managing Pts Care (In Minutes): 55
[2024-05-10] MEDS: NA CHLORIDE 0.9% 1,000 ML IV SCH (15:05)
[2024-05-10] MEDS: ALBUTEROL 2.5 MG/3 ML NEB SOL ONE (20:57)
[2024-05-10] MEDS: IPRATROPIUM BROM 0.5MG/2.5ML ONE (20:57)
[2024-05-11] MEDS: IPRATROPIUM BROM 0.5MG/2.5ML ONE ×2 (01:54→21:06)
--- NOTE | 2024-05-11 01:54 | CON ---
Date of Consultation: 05/10/2024 Chief Complaint: Acute on chronic kidney injury. Renal function has declined over last several days when the patient was treated with diuretics for congestive heart failure exacerbation. History Of Present Illness: The patient has past medical history of hypertension; hyperlipidemia; chronic atrial fibrillation, status post ablation; coronary artery disease, status post CABG; COPD; diabetes; congestive heart failure. She came to emergency room with shortness of breath, generalized weakness, and leg edema. She had progressively worse symptoms over last 2 weeks. The patient denied chest pain. She had productive cough with yellowish sputum. Denies fever, chills. Denies nausea, vomiting, dysuria, hematuria. She was treated with Z-Vincent prior to this admission without improvement. She came to emergency room and had workup done for congestive heart failure exacerbation. Nephrology consultation was requested because of progressively worse renal function. Renal function has declined over last few days. Past Medical History: Diabetes mellitus type 2, hypertension, COPD, restless legs syndrome, obesity, coronary artery disease. Past Surgical History: Brain surgery for aneurysm, cardiac surgery. Family History: Noncontributory. Social History: Former smoker. Denies alcohol, caffeine, and drugs. Review of Systems: Constitutional: Denies fever, chills. Eyes: Denies vision changes. Ears, Nose, Mouth, Throat: Denies sore throat and earache. Respiratory: Has shortness of breath and productive cough. GI: Denies nausea and vomiting. : Denies dysuria and hematuria. All other systems reviewed and all are negative. Physical Examination: General: Alert, oriented x3. HEENT: Atraumatic, normocephalic. Neck: Supple. No thyromegaly. Respiratory: Diminished, crackles and rales. Cardiovascular: S1, S2. Gastrointestinal: Soft and benign without hepatosplenomegaly. Musculoskeletal: No clubbing. No swelling. Neurologic: Moving extremities. Cranial nerves intact. Impression And Plan: 1. Acute on chronic kidney injury. Acute on chronic congestive heart failure, systolic/diastolic dysfunction. The patient was treated with diuretic. Renal function has declined. Currently diuretic on hold. The patient had some episodes of orthostatic hypotension. Adjust blood pressure medication. The patient has severe prerenal azotemia secondary to diuretic. Likely some element of acute tubular necrosis. The patient has nonoliguric urine output. Continue mild hydration and monitor renal function. Avoid nephrotoxic medication. Check UA to rule out active urinary sediment. Monitor for any evidence of proteinuria. 2. The patient has diabetes mellitus, likely proteinuria may represent diabetic kidney disease. 3. The patient likely has acute tubular necrosis secondary to overdiuresis, and severe prerenal azotemia is the primary cause of renal function decline. 4. History of atrial fibrillation, per Primary team. 5. History of coronary artery disease. Monitor troponin level. 6. Hypertension. Monitor blood pressure and adjust blood pressure medication to prevent hypotensive episodes. LA/KISHA Voice ID: [id number] Report ID: [id number] CHA
[2024-05-11] MEDS: ALBUTEROL 2.5 MG/3 ML NEB SOL ONE ×2 (01:55→21:06)
[2024-05-11 06:25] LABS: Specific Gravity 1.019 (1.005-1.030); Sqamous Epithelial <5 /HPF (None Seen); Urine Bacteria None Seen /HPF (<20); Urine Bilirubin NEGATIVE (Negative); Urine Blood Negative (Negative); Urine Clarity Turbid (Clear); Urine Color Light-Yellow (Yellow); Urine Culture Reflex Order NOT NEEDED; Urine Glucose NEGATIVE (Negative); Urine Ketones NEGATIVE (Negative); Urine Microscopic Reflex YN ORDER UMIC; Urine Nitrite NEGATIVE (Negative); Urine Protein NEGATIVE (Negative); Urine RBC <5 /HPF (None Seen); Urine Urobilinogen Normal (Normal); Urine WBC <5 /HPF (<5)
[2024-05-11 06:39] LABS: Hematocrit 34.9 % (36.0-45.0); Hemoglobin 11.3 g/dL (12.0-15.0); MCH 29.7 pg (27.0-35.0); MCHC 32.3 g/dL (32.0-36.0); MCV 92.2 fL (80-100); MPV 7.8 fL (7.6-11.3); Platelets 242 thou/uL (152-406); RBC Red Blood Cell Count 3.79 M/uL (3.86-4.86); Red Cell Distribution Width 16.1 % (12.1-15.2)
[2024-05-11 06:53] LABS: Albumin 3.5 g/dL (3.4-5.0); Anion Gap 9.7 mEq/L (5.0-15.0); Magnesium 3.1 mg/dL (1.6-2.4); Potassium 4.7 mEq/L (3.5-5.1)
--- NOTE | 2024-05-11 06:54 | TEE ---
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 NORMAL LEFT ATRIAL APPENDAGE, NO CLOT 2. MILD TO MODERATE MITRAL REGURGITATION 3. MODERATE TRICUSPID REGURGITATION TECHNOLOGIST: SAURABH HILL
[2024-05-11] MEDS: FUROSEMIDE 40 MG/4 ML VIAL IV ONE (10:28)
[2024-05-11 11:22] LABS: UR PROTEIN 21.2 mg/dL (<11.9)
--- NOTE | 2024-05-11 12:00 | P.PN ---
Subjective Date of Service: 05/11/24 Chief Complaint: CHF exacerbation Subjective: No new changes, No C/O voiced, Tolerating diet, Ambulating, Improving Review of Systems 10-point ROS is otherwise unremarkable Physical Examination - Vital Signs Temperature: 97.1 F Blood Pressure: 144/72 Pulse: 54 Respirations: 18 Pulse Ox (%): 97 - Physical Exam General: Alert, In no apparent distress HEENT: Atraumatic, PERRLA, EOMI Neck: Supple, JVD not distended Respiratory: Clear to auscultation bilaterally, Normal air movement Cardiovascular: Regular rate/rhythm, Normal S1 S2 Gastrointestinal: Normal bowel sounds, No tenderness Musculoskeletal: No tenderness Integumentary: No rashes Neurological: Normal speech, Normal tone, Normal affect Lymphatics: No axilla or inguinal lymphadenopathy - Studies Microbiology Data (last 24 hrs): 05/06/24 03:20 Blood - Blood Aerobic Blood Culture - Final No growth in 5 days. 05/06/24 03:20 Blood - Blood Anaerobic Blood Culture - Final No growth in 5 days. 05/06/24 02:25 Blood - Blood Aerobic Blood Culture - Final No growth in 5 days. 05/06/24 02:25 Blood - Blood Anaerobic Blood Culture - Final No growth in 5 days. Medications List Reviewed: Yes Assessment And Plan - Current Problems (Diagnosis) (1) Atrial fibrillation with RVR Current Visit: No Status: Acute Plan: Patient report history of ablation 2 years ago in medical center, patient EKG and tele shows she is in AF, rate of 100s Patient is s/p SANG DCCV, she converted into sinus rhythm continue Sotalol 80 mg po BID. continue Eliquis 5 mg po BID (2) Congestive heart failure Current Visit: No Status: Acute Plan: Patient still shows signs of volume overload, would recommend to continue diuresis, nephrology team is following too monitor input and output and electrolytes continue Toprol XL 50 mg daily will consider adding Aldactone, Entresto and Farxiga after diuresis. Qualifiers: Heart failure type: right-sided Heart failure chronicity: chronic Qualified Code(s): I50.812 - Chronic right heart failure (3) CAD (coronary artery disease) of artery bypass graft Current Visit: Yes Status: Acute Plan: no chest pain or troponin leak continue ASA 81 mg daily Outpatient follow up with cardiology.
--- NOTE | 2024-05-11 12:29 | P.PN ---
Date of Service: 05/11/24 Subjective: breathing okay on room air gets short of breath with minimal exertion refused some IVF last night intermittent episodes of dyspnea ROS: 10 point ROS as noted above, otherwise negative Physical Exam: GEN: Alert, oriented, NAD CV: Regular rate and rhythm, trace edema Pulm: Nonlabored respirations on room air at rest, diminished ABD: soft, nontender, nondistender Neuro: Normal speech, normal affect Problem List: Acute on chronic CHF GI Chronic a-fib s/p prior ablation; now s/p cardioversion (05/08) Cough Chronic COPD NIDDM2 Hypertension Hyperlipidemia Hx of CAD s/p CABG Hx of Brain bleed Acute on chronic CHF GI on admission, presents with progressively worsening SOB and lower extremity edema over the last 2-3 weeks. +productive cough CXR (05/06): Mild bilateral interstitial thickening. Mildly enlarged cardiac silhouette. echo (05/06): normal EF, normal wall motion, diastolic dysfunction, pulmonary hypertension. renal u/s (05/09): unremarkable. Cardiology and nephrology are consulted. repeat CXR with mild bilateral interstitial opacities, similar to past CXR IV Lasix 40 mg q8h briefly stopped 05/08. restarted orally @40 mg daily 05/09 lasix dc'd (05/10), given IVF 05/10 Continue diuresis as renal function allows per cardio. . Cardiology considering adding Aldactone, Entresto and Farxiga after diuresis. Creatinine slightly improved today, BUN ~same. Chronic a-fib s/p prior ablation; now s/p cardioversion (05/08) Hx of prior ablation ~2-3 years ago. Previously off Eliquis for ~2 years prior to this hospitalization. Monitor on telemtry Cardiology consulted continue sotalol, metoprolol, eliquis. plavix dc'd 05/10 as patient is now on eliquis. s/p successful SANG DCCV (05/08), converted back into sinus rhythm Cough She was recently seen in ER ~1 week ago for similar symptoms. Patient felt minimal improvement after finishing Z-nette Cough likely related to CHF/COPD vs infection continue rocephin to cover possible bacterial infection (05/06-) Follow blood cultures - no growth Chronic COPD NIDDM2 Hypertension Hyperlipidemia Hx of CAD s/p CABG confirm home meds, restart as appropriate resume home statin, plavix, protonix VTE: home eliquis Code: Full Dispo: Home, ~2-3 days, pending renal fxn, dyspnea Time Spent Managing Pts Care (In Minutes): 55
--- NOTE | 2024-05-11 22:50 | PN ---
Date of Progress Note: 05/11/2024 Chief Complaint: Acute on chronic kidney injury. Subjective: Renal function has declined over last several days when the patient was treated with diu retics for congestive heart failure exacerbation. Lasix was stopped and the patient was started on m ild hydration, although she developed progressively worse shortness of breath and IV fluid was stoppe d. The patient has multiple medical problems, including hypertension; hyperlipidemia; chronic atrial fibrillation, status post ablation; coronary artery disease, status post CABG; COPD; diabetes mellit us; congestive heart failure. She came to emergency room because of shortness of breath, generalized weakness, and leg edema. She had progressively worse symptoms over 2 weeks prior to admission. The patient denied chest pain. She had productive cough with yellowish sputum. Prior to this admission , she was treated with Z-Vincent without any improvement. Workup in the emergency room showed congestive heart failure exacerbation. Nephrology was consulted for acute on chronic kidney injury. Review of Systems: The patient denies chest pain, palpitation. She denies wheezing. She has shortness of breath. She remains bedbound. Physical Examination: Lungs: Diminished breath sounds at bases. Few rhonchi. Heart: S1, S2. Abdomen: Soft. Extremities: Edema present in both legs. Impression And Plan: 1. Acute on chronic kidney injury. The patient has nonoliguric urine output. There is no uremic sym ptomatology. The patient has congestive heart failure exacerbation, and she received Lasix today for volume control. IV fluids on hold. The patient may require hemodialysis during this admission. 2. The patient has diabetes mellitus. Urinalysis did not show active urinary sediment. 3. Acute kidney injury due to overdiuresis with severe prerenal azotemia complicated by acute tubular necrosis. Monitor renal function. Continue Lasix for congestive heart failure. The patient may re quire dialysis if renal function does not improve. 4. History of coronary artery disease, per Primary team. 5. Hypertension. Blood pressure medication as before. Adjust medication to prevent hypotensive epis odes. EB/MODL Voice ID: [id number] Report ID: [id number]
[2024-05-12] MEDS: FUROSEMIDE 40 MG/4 ML VIAL IV ONE (00:03)
[2024-05-12] MEDS: ALBUTEROL 2.5 MG/3 ML NEB SOL ONE (00:10)
[2024-05-12] MEDS: IPRATROPIUM BROM 0.5MG/2.5ML ONE (00:10)
[2024-05-12 09:06] LABS: Anion Gap 8.6 mEq/L (5.0-15.0); Magnesium 2.9 mg/dL (1.6-2.4); Potassium 4.6 mEq/L (3.5-5.1)
[2024-05-12] MEDS ORDERED: D50W 25 GM/50 ML SYRINGE IV PRN (11:04)
[2024-05-12] MEDS ORDERED: GLUCAGON 1 MG/VIAL IM PRN (11:04)
[2024-05-12] MEDS ORDERED: D10W 125 ML IV PRN (11:16)
[2024-05-12] MEDS: INSULIN REGULAR (HUMAN) 100 UNIT/ML SQ SCH (11:25)
[2024-05-12] MEDS: HYDRALAZINE HCL 20 MG/ML VIAL IV PRN (17:00)
--- NOTE | 2024-05-12 18:28 | P.PN ---
Subjective Date of Service: 05/12/24 Chief Complaint: CHF exacerbation Patient states she feels much better, but she appears to be short of breath with speaking. Patient has been tolerating room air. Physical Examination - Vital Signs Temperature: 97.6 F Blood Pressure: 179/86 Pulse: 60 Respirations: 18 Pulse Ox (%): 94 - Studies Medications List Reviewed: Yes Assessment And Plan - Plan Physical Exam: GEN: Alert, oriented, NAD, morbidly obese. CV: Regular rate and rhythm, trace edema Pulm: Nonlabored respirations on room air at rest, diminished breath sounds, mild bibasilar crackles. ABD: soft, nontender, nondistender Neuro: Normal speech, normal affect Problem List: Acute on chronic CHF GI Chronic a-fib s/p prior ablation; now s/p cardioversion (05/08) Cough Chronic COPD NIDDM2 Hypertension Hyperlipidemia Hx of CAD s/p CABG Hx of Brain bleed Acute on chronic CHF GI on admission, presents with progressively worsening SOB and lower extremity edema over the last 2-3 weeks. +productive cough CXR (05/06): Mild bilateral interstitial thickening. Mildly enlarged cardiac silhouette. echo (05/06): normal EF, normal wall motion, diastolic dysfunction, pulmonary hypertension. renal u/s (05/09): unremarkable. Cardiology and nephrology are consulted. repeat CXR with mild bilateral interstitial opacities, similar to past CXR IV Lasix 40 mg q8h briefly stopped 05/08. restarted orally @40 mg daily 05/09 lasix dc'd (05/10), given IVF 05/10 Continue diuresis as renal function allows per cardio. . Cardiology considering adding Aldactone, Entresto and Farxiga after diuresis. Creatinine slightly improved today, BUN ~same. Chronic a-fib s/p prior ablation; now s/p cardioversion (05/08) Hx of prior ablation ~2-3 years ago. Previously off Eliquis for ~2 years prior to this hospitalization. Monitor on telemtry Cardiology consulted continue sotalol, metoprolol, eliquis. plavix dc'd 05/10 as patient is now on eliquis. s/p successful SANG DCCV (05/08), converted back into sinus rhythm Cough She was recently seen in ER ~1 week ago for similar symptoms. Patient felt minimal improvement after finishing Z-nette Cough likely related to CHF/COPD vs infection continue rocephin to cover possible bacterial infection (05/06-) Follow blood cultures - no growth Chronic COPD NIDDM2 Hypertension Hyperlipidemia Hx of CAD s/p CABG confirm home meds, restart as appropriate resume home statin, plavix, protonix 05/12 Patient still short of breath with speaking however she is tolerating room air. She remained in sinus rhythm. Nephrology is following and managing diuresis. Patient is getting IV Lasix intermittently. Serum creatinine trended down Nephrology to follow. Monitor renal function. Increase activity as tolerated Cardiology input appreciated. VTE: home eliquis Code: Full Dispo: Home.
[2024-05-12] MEDS: SOTALOL HCL 80 MG TAB PO SCH (21:30)
[2024-05-12] MEDS: INSULIN NPH (HUMAN) 100 UNITS/ML SQ SCH (21:36)
--- NOTE | 2024-05-13 02:06 | PN ---
Chief Complaint: Acute on chronic kidney injury. Subjective: Renal function declined when patient was taking diuretics. Primarily, she was admitted for congestive heart failure exacerbation. Lasix was stopped and patient was started on mild IV hydr ation. The patient tolerates p.o. intake. Renal function has improved somewhat. The patient has co mplicated history of hypertension; hypertensive heart and kidney disease; coronary artery disease, st atus post CABG; atrial fibrillation; diabetes mellitus. The patient presented to the [facility] of worsening of the shortness of breath. She denies chest pain. She has had cough and yellowish s putum and prior to this admission, she was taking Z-Vincent. Review of Systems: Denies chest pain, palpitation. Physical Examination: Lungs: Clear to auscultation bilaterally. Heart: S1, S2. Abdomen: Soft. Extremities: Edema in both ankles. Impression And Plan: 1. Acute on chronic kidney injury due to prerenal azotemia, nonoliguric acute tubular necrosis. The patient has nonoliguric urine output. Lasix was stopped due to acute kidney injury, IV fluids were c urrently on hold. The patient developed some shortness of breath with IV hydration. Renal function over last 24 hours improved and patient will continue p.o. hydration. 2. Diabetes mellitus. Urinalysis did not show active urinary sediment. The patient has acute kidney injury due to overdiuresis with severe prerenal azotemia, complicated by acute tubular necrosis, non oliguric. 3. History of coronary artery disease per primary team. 4. Hypertension. Blood pressure is controlled. Continue current medication. LA/KISHA Voice ID: [id number] Report ID: [id number]
[2024-05-13] MEDS: hydrOXYzine HCL 25 MG TAB PO ONE (04:45)
[2024-05-13 06:10] LABS: Absolute Basophils 0.1 K/uL (0-0.5); Absolute Eosinophils 0.4 K/uL (0-0.5); Absolute Lymphocytes (CBC) 0.8 K/uL (0.7-4.9); Absolute Monocytes 0.6 K/uL (0.1-1.3); Absolute Neutrophil 5.6 K/uL (1.8-8.0); Eosinophils % 5.2 % (0-4.4); Hemoglobin 11.6 g/dL (12.0-15.0); Lymphocytes % 10.7 % (15.3-44.8); MCH 29.4 pg (27.0-35.0); MCHC 32.1 g/dL (32.0-36.0); MCV 91.6 fL (80-100); MPV 7.6 fL (7.6-11.3); Monocytes % 7.5 % (3.3-12.3); Neutrophils % 75.6 % (41.7-73.7); Nucleated Red Blood Cells % 0.1 % (0-0); Platelets 239 thou/uL (152-406); RBC Red Blood Cell Count 3.93 M/uL (3.86-4.86); Red Cell Distribution Width 16.2 % (12.1-15.2)
[2024-05-13 06:25] LABS: Anion Gap 8.4 mEq/L (5.0-15.0); Potassium 4.4 mEq/L (3.5-5.1)
[2024-05-13] MEDS: INSULIN NPH (HUMAN) 100 UNITS/ML SQ SCH (08:44)
--- NOTE | 2024-05-13 09:32 | RAD REPORT ---
EXAM: Chest Single View HISTORY: Follow up CHF COMPARISON: 05/10/2024 FINDINGS: LUNGS/PLEURA: Diffuse prominence of the pulmonary interstitium with some improvement compared with pr ior. MEDIASTINUM: The mediastinal silhouette is within normal limits. CARDIAC: Moderate cardiomegaly with decrease in size of the cardiac silhouette compared with . UPPER ABDOMEN: No significant abnormality. BONES: Sternotomy. No acute abnormality. LINES/TUBES/OTHER: N/A IMPRESSION: Mild improvement in pulmonary edema/congestive heart failure.
[2024-05-13] MEDS: FUROSEMIDE 40 MG/4 ML VIAL IV ONE (12:41)
--- NOTE | 2024-05-13 16:04 | PN ---
Date of Progress Note: 05/13/2024 Subjective: The patient was admitted to the hospital with acute kidney injury secondary to cardiorenal. The patient still having some shortness of breath. Objective: Vital Signs: When I saw the patient, blood pressure 163/79, pulse of 74, afebrile. Chest: Crackles, bilateral base. Heart: S1, S2. Systolic murmur. Abdomen: Soft, nontender. Extremities: Trace edema. Neurologic: Alert. No focality. Laboratory Data: Hemoglobin 11.6, sodium 136, potassium 4.4, bicarb 26, BUN 64, creatinine 2.1, continue to trend down. Calcium 8.4. Current Medications: The patient on it includes ceftriaxone, Eliquis, metoprolol, Tylenol. Assessment And Plan: 1. Acute kidney injury secondary to cardiorenal, poor perfusion, ATN. On the recovery, look to me slightly on the wet side. I am going to give the patient a single dose of Lasix today and we will follow up. 2. Diabetes, as by Primary. 3. Hypertension, controlled, not optimal. We will resume gentle dose of Lasix and we will follow up blood pressure. 4. Congestive heart failure with exacerbation, as above. We will resume the Lasix. Time spent examining the patient [id number] reviewing data lab and an audiology placing order discussing the case with the patient discussing the case with the steamfitter apprentice including hospitalist and nursing staff more than 55-minute YEYO Voice ID: [id number] Report ID: [id number] CHA
--- NOTE | 2024-05-13 17:07 | P.PN ---
Subjective Date of Service: 05/13/24 Chief Complaint: CHF exacerbation Patient reports she had a panic attack last night. She reports shortness of breath. Her oxygen saturation is good on room air. She denies any chest pain. She remain in sinus rhythm Physical Examination - Vital Signs Temperature: 97.5 F Blood Pressure: 149/73 Pulse: 73 Respirations: 18 Pulse Ox (%): 96 - Studies Medications List Reviewed: Yes Assessment And Plan - Plan Physical Exam: GEN: Alert, oriented, NAD, morbidly obese. CV: Regular rate and rhythm, trace edema Pulm: Nonlabored respirations on room air at rest, diminished breath sounds, mild bibasilar crackles. ABD: soft, nontender, nondistender Neuro: Normal speech, normal affect Problem List: Acute on chronic CHF GI Chronic a-fib s/p prior ablation; now s/p cardioversion (05/08) Cough Chronic COPD NIDDM2 Hypertension Hyperlipidemia Hx of CAD s/p CABG Hx of Brain bleed Acute on chronic CHF GI on admission, presents with progressively worsening SOB and lower extremity edema over the last 2-3 weeks. +productive cough CXR (05/06): Mild bilateral interstitial thickening. Mildly enlarged cardiac silhouette. echo (05/06): normal EF, normal wall motion, diastolic dysfunction, pulmonary hypertension. renal u/s (05/09): unremarkable. Cardiology and nephrology are consulted. repeat CXR with mild bilateral interstitial opacities, similar to past CXR IV Lasix 40 mg q8h briefly stopped 05/08. restarted orally @40 mg daily 05/09 lasix dc'd (05/10), given IVF 05/10 Continue diuresis as renal function allows per cardio. . Cardiology considering adding Aldactone, Entresto and Farxiga after diuresis. Creatinine slightly improved today, BUN ~same. Chronic a-fib s/p prior ablation; now s/p cardioversion (05/08) Hx of prior ablation ~2-3 years ago. Previously off Eliquis for ~2 years prior to this hospitalization. Monitor on telemtry Cardiology consulted continue sotalol, metoprolol, eliquis. plavix dc'd 05/10 as patient is now on eliquis. s/p successful SANG DCCV (05/08), converted back into sinus rhythm Cough She was recently seen in ER ~1 week ago for similar symptoms. Patient felt minimal improvement after finishing Z-nette Cough likely related to CHF/COPD vs infection continue rocephin to cover possible bacterial infection (05/06-) Follow blood cultures - no growth Chronic COPD NIDDM2 Hypertension Hyperlipidemia Hx of CAD s/p CABG confirm home meds, restart as appropriate resume home statin, plavix, protonix 05/12 Patient still short of breath with speaking however she is tolerating room air. She remained in sinus rhythm. Nephrology is following and managing diuresis. Patient is getting IV Lasix intermittently. Serum creatinine trended down Nephrology to follow. Monitor renal function. Increase activity as tolerated Cardiology input appreciated. 05/13 Patient remains short of breath. Renal function trended down slightly. Nephrology Dr. Momin is managing fluid/volume status. Patient getting intermittent IV Lasix. Monitor renal function. Activity as tolerated. Continue sotalol metoprolol and Eliquis for A-fib. VTE: home eliquis Code: Full Dispo: Home.
[2024-05-14] MEDS ORDERED: ALBUTEROL 2.5 MG/3 ML NEB SOL NEB PRN (01:25)
[2024-05-14] MEDS: hydrOXYzine HCL 25 MG TAB PO ONE ×2 (01:38→20:47)
[2024-05-14 06:34] LABS: Absolute Basophils 0.1 K/uL (0-0.5); Absolute Eosinophils 0.4 K/uL (0-0.5); Absolute Monocytes 0.7 K/uL (0.1-1.3); Absolute Neutrophil 6.8 K/uL (1.8-8.0); Basophils % 0.7 % (0-1.3); Eosinophils % 4.4 % (0-4.4); Hematocrit 35.1 % (36.0-45.0); Hemoglobin 11.5 g/dL (12.0-15.0); Lymphocytes % 11.2 % (15.3-44.8); MCHC 32.8 g/dL (32.0-36.0); MCV 91.3 fL (80-100); MPV 7.9 fL (7.6-11.3); Monocytes % 8.2 % (3.3-12.3); Neutrophils % 75.5 % (41.7-73.7); Nucleated Red Blood Cells % 0.1 % (0-0); Platelets 232 thou/uL (152-406); RBC Red Blood Cell Count 3.85 M/uL (3.86-4.86); Red Cell Distribution Width 16.7 % (12.1-15.2)
[2024-05-14 06:45] LABS: Anion Gap 8.2 mEq/L (5.0-15.0); Potassium 4.2 mEq/L (3.5-5.1)
--- NOTE | 2024-05-14 19:08 | P.PN ---
Subjective Date of Service: 05/14/24 Chief Complaint: CHF exacerbation Patient states she feels better today She reports improvement in her shortness of breath. She is tolerating room air. She ambulated with physical therapy however she has shortness of breath with exertion. She denies any chest pain. She remain in sinus rhythm Physical Examination - Vital Signs Temperature: 97.8 F Blood Pressure: 173/73 Pulse: 58 Respirations: 18 Pulse Ox (%): 96 - Studies Medications List Reviewed: Yes Assessment And Plan - Plan Physical Exam: GEN: Alert, oriented, NAD, morbidly obese. CV: Regular rate and rhythm, trace edema Pulm: Nonlabored respirations on room air at rest, diminished breath sounds, mild bibasilar crackles. ABD: soft, nontender, nondistender Neuro: Normal speech, normal affect Problem List: Acute on chronic CHF GI Chronic a-fib s/p prior ablation; now s/p cardioversion (05/08) Cough Chronic COPD NIDDM2 Hypertension Hyperlipidemia Hx of CAD s/p CABG Hx of Brain bleed Acute on chronic CHF GI on admission, presents with progressively worsening SOB and lower extremity edema over the last 2-3 weeks. +productive cough CXR (05/06): Mild bilateral interstitial thickening. Mildly enlarged cardiac silhouette. echo (05/06): normal EF, normal wall motion, diastolic dysfunction, pulmonary hypertension. renal u/s (05/09): unremarkable. Cardiology and nephrology are consulted. repeat CXR with mild bilateral interstitial opacities, similar to past CXR IV Lasix 40 mg q8h briefly stopped 05/08. restarted orally @40 mg daily 05/09 lasix dc'd (05/10), given IVF 05/10 Continue diuresis as renal function allows per cardio. . Cardiology considering adding Aldactone, Entresto and Farxiga after diuresis. Creatinine slightly improved today, BUN ~same. Chronic a-fib s/p prior ablation; now s/p cardioversion (05/08) Hx of prior ablation ~2-3 years ago. Previously off Eliquis for ~2 years prior to this hospitalization. Monitor on telemtry Cardiology consulted continue sotalol, metoprolol, eliquis. plavix dc'd 05/10 as patient is now on eliquis. s/p successful SANG DCCV (05/08), converted back into sinus rhythm Cough She was recently seen in ER ~1 week ago for similar symptoms. Patient felt minimal improvement after finishing Z-nette Cough likely related to CHF/COPD vs infection continue rocephin to cover possible bacterial infection (05/06-) Follow blood cultures - no growth Chronic COPD NIDDM2 Hypertension Hyperlipidemia Hx of CAD s/p CABG confirm home meds, restart as appropriate resume home statin, plavix, protonix 05/12 Patient still short of breath with speaking however she is tolerating room air. She remained in sinus rhythm. Nephrology is following and managing diuresis. Patient is getting IV Lasix intermittently. Serum creatinine trended down Nephrology to follow. Monitor renal function. Increase activity as tolerated Cardiology input appreciated. 05/13 Patient remains short of breath. Renal function trended down slightly. Nephrology Dr. Momin is managing fluid/volume status. Patient getting intermittent IV Lasix. Monitor renal function. Activity as tolerated. Continue sotalol metoprolol and Eliquis for A-fib. 05/14 Patient is tolerating room air. Renal function significantly improved. Nephrology Dr. Medina is following and managing renal function. IV Lasix as needed. Increase activity as tolerated Continue sotalol and metoprolol for A-fib Continue Eliquis. Anticipating discharge to home with home health in a.m. VTE: home eliquis Code: Full Dispo: Home.
[2024-05-14] MEDS: AMLODIPINE 5 MG TAB PO SCH (20:25)
[2024-05-14] MEDS: ALBUTEROL 2.5 MG/3 ML NEB SOL ONE (20:26)
[2024-05-14] MEDS: IPRATROPIUM BROM 0.5MG/2.5ML ONE (20:26)
--- NOTE | 2024-05-14 20:36 | PN ---
Date of Progress Note: 05/14/2024 Subjective: The patient was admitted to the hospital with acute kidney injury secondary to cardiorenal. The patient treated, recovered. The patient doing well. Physical Examination: General: When I saw the patient, the patient lying in bed, comfortable, not on any distress. Vital Signs: Blood pressure 157/72, pulse of 76, afebrile. Chest: Clear to auscultation. Heart: S1, S2. Regular. Abdomen: Soft, nontender. Extremities: No edema. Neurologic: Alert. No focality. Laboratory Data: Hemoglobin 11.5, WBC 9. Sodium 139, potassium 4.2, bicarb 27, BUN 49, creatinine 1.5, GFR of 36. Continue to improve calcium 8.6. Current Medications: The patient on include ceftriaxone, albuterol, Atorvastatin, sotalol, ipratropium, glucagon. Assessment And Plan: 1. Acute kidney injury secondary to cardiorenal, poor perfusion, acute tubular necrosis. I am going to resume the Lasix and we will follow up. 2. Diabetes, stable. 3. Hypertension, controlled, optimal. Continue to utilize blood pressure for more diuresis. 4. Deconditioning. Continue PT/OT. Time spent examining the patient [id number] reviewing data lab and an audiology placing order discussing the case with the patient discussing the case with the logistics team lead including hospitalist and nursing staff more than 55-minute YEYO Voice ID: [id number] Report ID: [id number] MTDNatalie
[2024-05-15] MEDS: IPRATROPIUM BROM 0.5MG/2.5ML ONE (02:06)
[2024-05-15] MEDS: ALBUTEROL 2.5 MG/3 ML NEB SOL ONE (02:06)
[2024-05-15 06:08] LABS: Absolute Basophils 0.1 K/uL (0-0.5); Absolute Eosinophils 0.3 K/uL (0-0.5); Absolute Lymphocytes (CBC) 0.9 K/uL (0.7-4.9); Absolute Monocytes 0.7 K/uL (0.1-1.3); Absolute Neutrophil 5.7 K/uL (1.8-8.0); Basophils % 0.8 % (0-1.3); Eosinophils % 3.7 % (0-4.4); Hematocrit 36.6 % (36.0-45.0); Hemoglobin 11.6 g/dL (12.0-15.0); Lymphocytes % 11.3 % (15.3-44.8); MCH 29.4 pg (27.0-35.0); MCHC 31.8 g/dL (32.0-36.0); MCV 92.4 fL (80-100); MPV 7.8 fL (7.6-11.3); Monocytes % 9.7 % (3.3-12.3); Neutrophils % 74.5 % (41.7-73.7); Nucleated Red Blood Cells % 0.1 % (0-0); Platelets 208 thou/uL (152-406); RBC Red Blood Cell Count 3.97 M/uL (3.86-4.86); Red Cell Distribution Width 16.9 % (12.1-15.2)
[2024-05-15 06:18] LABS: Anion Gap 6.3 mEq/L (5.0-15.0); Potassium 4.3 mEq/L (3.5-5.1)
[2024-05-15] MEDS: FUROSEMIDE 40 MG TABLET PO SCH (08:11)
[2024-05-15 11:52] VITALS: BP 148/72; TEMP 97.5
--- NOTE | 2024-05-15 15:38 | P.DS ---
Admission Date: 05/06/24 Discharge Date: 05/15/24 Disposition: DC HOME/HOME HEALTH CARE Discharge Condition: FAIR Reason for Admission: CHF exacerbation Brief History of Present Illness: 68 yrs old Female with past medical history of hypertension, hyperlipidemia, chronic atrial fibrillation status post ablation, CAD status post CABG, COPD, diabetes, CHF who came to ER with shortness of breath which has been slowly getting worse over 2 weeks. Patient denied any chest pain. Patient had cough with yellowish sputum. She hwas treated with Z-Vincent recently without much improvement. Patient was assessed in the ER and was admitted for further management of CHF exacerbation. Hospital Course: Problem List: Acute on chronic CHF GI Chronic a-fib s/p prior ablation; now s/p cardioversion (05/08) Cough Chronic COPD NIDDM2 Hypertension Hyperlipidemia Hx of CAD s/p CABG Hx of Brain bleed Patient admitted to the medical floor and the following medical problems addressed: Acute on chronic diastolic CHF Acute respiratory failure with hypoxia GI on admission, presents with progressively worsening SOB and lower extremity edema over the last 2-3 weeks. +productive cough CXR (05/06): Mild bilateral interstitial thickening. Mildly enlarged cardiac silhouette. echo (05/06): normal EF, normal wall motion, diastolic dysfunction, pulmonary hypertension. renal u/s (05/09): unremarkable. Cardiology and nephrology evaluated patient and assisted with management. Patient was treated with IV Lasix for diuresis and then transition to oral Lasix. Respiratory status significantly improved. Patient was initially needing oxygen but was later weaned off the oxygen. She tolerated room air with ambulation. Farxiga on discharge. Addition of spironolactone per nephrology. Serum creatinine improved significantly. Chronic a-fib s/p prior ablation; now s/p cardioversion (05/08) Hx of prior ablation ~2-3 years ago. Previously off Eliquis for ~2 years prior to this hospitalization. Cardiology evaluated patient She has been on sotalol, metoprolol, eliquis. plavix dc'd 05/10 as patient is now on eliquis. s/p successful SANG DCCV (05/08), patient converted back into sinus rhythm Chronic COPD NIDDM2 Hypertension Hyperlipidemia Hx of CAD s/p CABG Continued home statin, plavix, protonix Vital Signs/Physical Exam: Temp Pulse Resp BP Pulse Ox 97.5 F 71 16 148/72 H 96 02/21/25 11:51 05/15/24 11:51 05/15/24 11:51 05/15/24 11:51 05/15/24 11:51 General: Alert, In no apparent distress, Oriented x3, Obese HEENT: Mucous membr. moist/pink Neck: JVD not distended Respiratory: Clear to auscultation bilaterally, Normal air movement Cardiovascular: Regular rate/rhythm, Normal S1 S2 Gastrointestinal: Soft and benign, Non-distended, No tenderness Musculoskeletal: No swelling Neurological: Normal speech, Normal strength at 5/5 x4 extr, Cranial nerves 3-12 intact Laboratory Data at Discharge: WBC 7.70 thou/uL (4.3-10.9) 05/15/24 05:25 Hgb 11.6 g/dL (12.0-15.0) L 05/15/24 05:25 Hct 36.6 % (36.0-45.0) 05/15/24 05:25 Plt Count 208 thou/uL (152-406) 05/15/24 05:25 PT 13.0 SECONDS (9.4-12.5) H 05/06/24 02:25 INR 1.24 05/06/24 02:25 APTT 23.6 SECONDS (24.3-36.9) L 05/06/24 02:25 Sodium 138 mEq/L (136-145) 05/15/24 05:25 Potassium 4.3 mEq/L (3.5-5.1) 05/15/24 05:25 BUN 35 mg/dL (7-18) H 05/15/24 05:25 Creatinine 1.42 mg/dL (0.55-1.02) H 05/15/24 05:25 Glucose 250 mg/dL (74-106) H 05/15/24 05:25 Phosphorus 5.0 mg/dL (2.5-4.9) H 05/11/24 06:00 Magnesium 2.9 mg/dL (1.6-2.4) H 05/12/24 08:26 Total Bilirubin 0.5 mg/dL (0.2-1.0) 05/09/24 05:53 AST 18 U/L (15-37) 05/09/24 05:53 ALT 19 U/L (13-56) 05/09/24 05:53 Alkaline Phosphatase 110 U/L (45-117) 05/09/24 05:53 Home Medications: Apixaban [Eliquis] 5 mg PO BID 12/09/19 Fluticasone Propion/Salmeterol [Advair 250-50 Diskus] 1 inh IH BID 12/09/19 Albuterol Inhaler [Ventolin Inhaler*] 2 puff IH Q6HP PRN 05/06/24 Atorvastatin Calcium 10 mg PO BEDTIME 05/06/24 Clopidogrel Bisulfate [Plavix] 75 mg PO DAILY 05/06/24 Furosemide 40 mg PO DAILY 05/06/24 Insulin Regular, Human [Novolin R] 15 unit SQ BID 05/06/24 Ipratropium/Albuterol Sulfate [Iprat-Albut 0.5-3(2.5) mg/3 ml] 3 ml IH Q6H 05/06/24 Metoprolol Succinate [Toprol Xl*] 50 mg PO DAILY 05/06/24 Benzonatate [Tessalon Perle*] 200 mg PO TID PRN #30 cap 05/14/24 Sotalol HCl [Betapace*] 80 mg PO BID 6AM 6PM #60 tab 05/14/24 Amlodipine [Norvasc*] 5 mg PO DAILY #30 tab 05/15/24 New Medications: Sotalol HCl [Betapace*] 80 mg PO BID 6AM 6PM #60 tab Amlodipine [Norvasc*] 5 mg PO DAILY #30 tab Benzonatate [Tessalon Perle*] 200 mg PO TID PRN #30 cap PRN Reason: COUGH TRY 2ND Diet: ADA Followup: Glen Jones FNP [Primary Care Provider] - 1-2 Weeks Eugene Momin MD [ACTIVE - CAN ADMIT] - 1-2 Weeks Joe Padgett MD [ACTIVE - CAN ADMIT] - 1-2 Weeks Time spent managing pt's care (in minutes): 35
[2024-05-15 15:56] VITALS: O2SAT 98
--- NOTE | 2024-05-15 21:52 | PN ---
Date of Progress Note: 05/15/2024 Chief Complaint: Acute kidney injury, cardiorenal syndrome. Subjective: The patient was admitted to the hospital because of congestive heart failure. She was t reated with diuretics. She developed acute kidney injury secondary to cardiorenal syndrome. Renal f unction has gradually improved. Review of Systems: Denies chest pain, palpitation. Physical Examination: Lungs: Clear to auscultation bilaterally. Heart: S1, S2. Abdomen: Soft, benign. Extremities: No edema. Impression And Plan: 1. Acute kidney injury secondary to cardiorenal syndrome. Renal hypoperfusion, acute tubular necrosi s. Lasix was resumed. Renal function improved to baseline. 2. Diabetes mellitus with renal manifestation. Avoid metformin. 3. Hypertension, controlled. Continue diuretics. 4. Deconditioning. Continue physical therapy, occupational therapy. EB/MODL Voice ID: [id number] Report ID: [id number]
--- NOTE | 2024-05-18 12:48 | EKG ---
Test Date: 2024-05-08 Test Time: 09:46:43 Business Transformation Consultant: FLO MEASUREMENT RESULTS: Intervals: Rate: 80 PA: 172 QRSD: 76 QT: 436 QTc: 502 Mercer: P: 34 PA: 172 QRS: 111 T: 15 INTERPRETIVE STATEMENTS: Normal sinus rhythm Right axis deviation Prolonged QT Abnormal ECG Compared to ECG 05/06/2024 02:10:32 Right-axis deviation now present Prolonged QT interval now present Atrial fibrillation no longer present T-wave abnormality no longer present Possible ischemia no longer present Electronically Signed On 05-18-24 12:23:55 PHYSICIAN ASST by Joe Padgett
== END 2024-05-15 16:00 | disposition home health service (06) | DRG 291 ==
LOC: ER 01:32 → ERHOLD 04:45 → 4TH 05:12
PROVIDERS: ADMIT Hospitalist; ATTEND Internal Medicine
PROC: B24BZZ4 Ultrasonography of Heart with Aorta, Transesophageal (ICD-10-PCS; principal; 2024-05-08)
PROC: 5A2204Z Restoration of Cardiac Rhythm, Single (ICD-10-PCS; 2024-05-08)
DX: I13.0 Hypertensive heart and chronic kidney disease with heart failure and stage 1 through stage 4 chronic kidney disease, or unspecified chronic kidney disease (principal); I50.33 Acute on chronic diastolic (congestive) heart failure; N17.0 Acute kidney failure with tubular necrosis; J96.01 Acute respiratory failure with hypoxia; I48.20 Chronic atrial fibrillation, unspecified; Z68.42 Body mass index [BMI] 45.0-49.9, adult; E66.01 Morbid (severe) obesity due to excess calories; I50.812 Chronic right heart failure; N18.2 Chronic kidney disease, stage 2 (mild); E11.22 Type 2 diabetes mellitus with diabetic chronic kidney disease; E78.5 Hyperlipidemia, unspecified; J98.4 Other disorders of lung; I95.1 Orthostatic hypotension; E86.0 Dehydration; J40 Bronchitis, not specified as acute or chronic; G25.81 Restless legs syndrome; I27.20 Pulmonary hypertension, unspecified; I08.1 Rheumatic disorders of both mitral and tricuspid valves; I25.10 Atherosclerotic heart disease of native coronary artery without angina pectoris; Z88.1 Allergy status to other antibiotic agents; Z95.1 Presence of aortocoronary bypass graft; Z88.0 Allergy status to penicillin; Z11.52 Encounter for screening for COVID-19; Z79.01 Long term (current) use of anticoagulants; Z79.02 Long term (current) use of antithrombotics/antiplatelets; Z28.310 Unvaccinated for COVID-19; Z79.899 Other long term (current) drug therapy
CPT/HCPCS: 01922; 36415; 71045; 76770; 80048; 80053; 80069; 81001; 81003; 82550; 82570; 82947; 83605; 83735; 83880; 84100; 84132; 84156; 84300; 84484; 85025; 85027; 85610; 85730; 87040; 87804; 87811; 92960; 93005; 93306; 93312; 94640; 94760; 96374; 97116; 97161; 97530; 99285; J0360; J0696; J1815; J1940; J2003; J2704; J7030; J7040; J7050; J7613; J7644

== ENCOUNTER 2024-11-01 15:59 | Emergency (ER) | payer OTHER ==
[2024-11-01 16:59] LABS: Absolute Lymphocytes (CBC) 1.6 K/uL (0.7-4.9); Hematocrit 45.7 % (36.0-45.0); Hemoglobin 15.1 g/dL (12.0-15.0); MCH 29.8 pg (27.0-35.0); MCHC 33.1 g/dL (32.0-36.0); MCV 90.2 fL (80-100); MPV 8.2 fL (7.6-11.3); Nucleated RBC Absolute Count 0.0 (0-0); Nucleated Red Blood Cells % 0.2 % (0-0); RBC Red Blood Cell Count 5.07 M/uL (3.86-4.86); White Blood Count 8.60 thou/uL (4.3-10.9)
[2024-11-01 17:25] LABS: ALT/SGPT 23.0 U/L (13-56); Albumin 3.3 g/dL (3.4-5.0); Albumin/Globulin Ratio 0.8 (1.1-1.8); Alkaline Phosphatase 119.0 U/L (45-117); Anion Gap 10.6 mEq/L (5.0-15.0); BUN Blood Urea Nitrogen 56.0 mg/dL (7-18); Globulin 3.9 g/dL (2.3-3.5); Glucose Level 179.0 mg/dL (74-106); Lipase 31.0 U/L (13-75)
[2024-11-01 17:26] LABS: AST/SGOT 17.0 U/L (15-37); Potassium 4.6 mEq/L (3.5-5.1)
--- NOTE | 2024-11-01 17:26 | RAD REPORT ---
Stone Protocol CLINICAL INDICATION: Female, 69 years old.PAIN TECHNIQUE: CT abdomen and pelvis was performed, without IV contrast, as per department protocol using a CT stone protocol. Axial, sagittal and coronal reconstructions were obtained. One or more of the following dose reduction techniques were used: Automated exposure control, adjustment of the mA and/o r kV according to the patient size, and/or iterative reconstruction. Unless otherwise specified, incidental findings do not require dedicated imaging follow-up. [id number]. IV CONTRAST: Not administered. COMPARISON: 12/25/2019 FINDINGS: The lack of intravenous contrast limits the sensitivity of this exam for evaluation of solid visceral organs, vascular structures, and retroperitoneum. LOWER CHEST: No acute process identified.Mild cardiomegaly. Moderate coronary artery calcifications.S mall hiatal hernia with circumferential thickening of the esophagus which could reflect esophagitis. UPPER GI: No significant abnormality. LIVER: Cirrhotic liver morphology. No focal masses. GALLBLADDER/BILE DUCTS: Cholelithiasis without CT evidence of acute cholecystitis.? PANCREAS: No mass, ductal dilation, or susan-pancreatic fluid. SPLEEN: Unremarkable. ADRENALS: Adrenal thickening without discrete mass. KIDNEYS AND URETERS: No hydronephrosis.Limited evaluation for renal lesions in the absence of IV cont rast.No renal calculi.No ureteral calculi. ABDOMINAL AORTA AND OTHER VESSELS: Mild atherosclerotic changes. PERITONEUM: No abnormal free fluid. No free air. LYMPH NODES: No pathologic lymphadenopathy. ABDOMINAL WALL: Injection sites in the anterior abdominal wall. Small fat containing umbilical herni a. SMALL BOWEL/COLON: Small bowel has normal course and caliber. No colonic wall thickening or pericolon ic inflammatory changes.Normal appendix. URINARY BLADDER: Underdistended but grossly unremarkable. REPRODUCTIVE ORGANS: No pathologic process. MUSCULOSKELETAL: Multilevel degenerative changes in the spine. No acute fracture.. Remote right infer ior pubic ramus fracture. ADDITIONAL FINDINGS: None. IMPRESSION: No acute findings within the abdomen or pelvis. No appendicitis.
[2024-11-01] MEDS ORDERED: ONDANSETRON 4 MG/2 ML VIAL ONE (17:58)
[2024-11-01] MEDS ORDERED: MORPHINE 4 MG/ML SYR ONE (17:58)
[2024-11-01 18:13] LABS: Urine Microscopic Reflex YN NO UMIC
[2024-11-01] MEDS ORDERED: NA CHLORIDE 0.9% 500 ML ONE (18:21)
--- NOTE | 2024-11-01 18:41 | EDPHYS ---
Physician Documentation [facility] Name: Kandice Elizabeth Age: 69 yrs Sex: Female : 1955 Arrival Date: 11/01/2024 Time: 15:59 Bed 2 Private MD: ED Physician Jazmine Green HPI: 11/01 16:15 This 69 yrs old Female presents to ER via Unassigned with complaints of left flank pain.kb 16:15 Patient is a 69-year-old female who presents for left flank pain that started last kb night. Reports pain is worse with movement states pain needs around to lower left ribs. denies injury or trauma. Denies urinary symptoms, nausea, vomiting, diarrhea. States she took a Flexeril last night and the pain eased up after that asleep but never fully went away.. Historical: - Allergies: 16:05 Amoxicillin; cf3 - PMHx: 16:05 Atrial Fib; Brain bleed; CAD; CHF; COPD; Diabetes - IDDM; Hypertension; cf3 - PSHx: 16:05 Heart ablasion; Bipass; cf3 - Immunization history:: Adult Immunizations up to date. - Infectious Disease History:: Denies. - Social history:: Smoking status: Patient denies any tobacco usage or history of. ROS: 16:17 Constitutional: As per HPI kb Exam: 16:17 Constitutional: This is a well developed, well nourished patient who is awake, alert, kb and in no acute distress. Head/Face: Normocephalic, atraumatic. ENT: Moist Mucous membranes Cardiovascular: Regular rate Respiratory: Respirations even and unlabored. No increased work of breathing. Talking in full sentences Skin: Warm, dry with normal turgor. Normal color. MS/ Extremity: Pulses equal, no cyanosis. Neurovascular intact. Full, normal range of motion. Neuro: Awake and alert, GCS 15, oriented to person, place, time, and situation. 16:17 Abdomen/GI: Inspection: abdomen appears normal, Bowel sounds: normal, Palpation: soft, in all quadrants, mild abdominal tenderness, in the left upper quadrant, 16:17 Back: CVA tenderness, that is mild, is noted on the left, Vital Signs: 16:00 BP 169 / 79; Pulse 59; Resp 16; Pulse Ox 99% ; me1 16:06 BP 169 / 79; Pulse 59; Resp 16; Temp 98(O); Pulse Ox 99% on R/A; Weight 95.25 kg; cf3 Height 4 ft. 11 in. ; 17:00 BP 174 / 73; Pulse 61; Resp 15; Pulse Ox 100% ; me1 18:00 BP 146 / 74; Pulse 60; Resp 16; Pulse Ox 100% ; me1 19:00 BP 159 / 97; Pulse 89; Resp 16; Pulse Ox 96% ; me1 19:22 BP 159 / 88; Pulse 76; Resp 18; Temp 98; Pulse Ox 100% on R/A; kj2 16:06 Body Mass Index 42.41 (95.25 kg, 149.86 cm) cf3 MDM: 16:01 Medical Screening Exam initiated kb 18:36 Differential diagnosis: nephrolithiasis, pyelonephritis, UTI, strain. Data reviewed: kb vital signs, nurses notes. Historians other than the Patient: EMS: [facility]. External Records Reviewed: creatinine history reviewed from previous visits. Counseling: I had a detailed discussion with the patient and/or guardian regarding the historical points, exam findings, and any diagnostic results supporting the discharge/admit diagnosis, lab results, radiology results, the need for outpatient follow up, a family practitioner, to return to the emergency department if symptoms worsen or persist or if there are any questions or concerns that arise at home. 18:43 ED course: Pain increases with movement. Pt reports flexeril improved the symptoms, but kb it was her 's prescription. Requests prescription for flexeril of her own. 11/01 16:02 Order name: CBC with Diff; Complete Time: 17:09 kb 11/01 16:02 Order name: CMP; Complete Time: 17:29 kb 11/01 16:02 Order name: Lipase; Complete Time: 17:29 kb 11/01 16:02 Order name: UA Rfx Mike Cult if indicated; Complete Time: 18:14 kb 11/01 16:02 Order name: CT Stone Protocol; Complete Time: 17:29 kb 11/01 16:02 Order name: IV Saline Lock; Complete Time: 16:06 kb 11/01 16:02 Order name: Labs collected and sent; Complete Time: 16:06 kb Administered Medications: 18:03 Drug: Ondansetron IVP 4 mg IVP once; over 2 minutes Route: IVP; Site: right upper arm; cf3 19:10 Follow up: Response: No adverse reaction; Marked relief of symptoms cf3 18:04 Drug: morphine IVP or IV 4 mg IVP once over 4 mins Route: IVP; Infused Over: 4 mins; cf3 Site: right upper arm; 19:10 Follow up: Response: No adverse reaction; Marked relief of symptoms cf3 18:24 Drug: NS 0.9% IV 500 ml 500 ml IV at 1 bolus once; to be given as a bolus over 30 me1 minutes Volume: 500 ml; Route: IV; Rate: 1 bolus; Site: right antecubital; 19:23 Follow up: IV Status: Completed infusion; IV Intake: 500ml kj2 Disposition Summary: 11/01/24 18:41 Discharge Ordered Notes: Location: Home kb Condition: Stable kb Diagnosis - Upper abdominal pain, unspecified kb Followup: kb - With: Emergency Department - When: As needed - Reason: Worsening of condition Followup: kb - With: Private Physician - When: 2 - 3 days - Reason: Recheck today's complaints, Continuance of care, Re-evaluation by your physician Discharge Instructions: - Discharge Summary Sheet kb - Abdominal Pain, Adult, [id number] kb - Muscle Strain, [id number] kb Forms: - Medication Reconciliation Form kb - Antibiotic Education kb - Prescription Opioid Use kb - Patient Portal Instructions kb - Leadership Thank You Letter kb Prescriptions: - Cyclobenzaprine 10 mg Oral tablet - take 1 tablet ORAL route every 8 hours As needed; 21 tablet; Refills: 0, kb Product Selection Permitted Signatures: Dispatcher [employer] Jodi Wise, MARCO-C SUPERVISOR FLOOR ASSEMBLY-Neema Salgado, RN RN me1 Gerard Forman, RN RN cf3 Elma Lackey RN kj2 Corrections: (The following items were deleted from the chart) 16:02 16:02 [place]ney Protocol+[email or web address].BRZ ordered. BRENTON FARRIS
--- NOTE | 2024-11-01 18:41 | ER ---
Nurse's Notes [facility] Name: Kandice Elizabeth Age: 69 yrs Sex: Female : 1955 Arrival Date: 11/01/2024 Time: 15:59 Bed 2 Private MD: Diagnosis: Upper abdominal pain, unspecified Presentation: 11/01 16:05 Chief complaint: EMS states: Left flank pain. Coronavirus screen: At this time, the cf3 client does not indicate any symptoms associated with coronavirus-19. Ebola Screen: No symptoms or risks identified at this time. 16:05 Method Of Arrival: EMS: [facility] cf3 16:06 Initial Sepsis Screen: Does the patient meet any 2 criteria? No. Patient's initial cf3 sepsis screen is negative. Does the patient have a suspected source of infection? No. Patient's initial sepsis screen is negative. Risk Assessment: Do you want to hurt yourself or someone else? Patient reports no desire to harm self or others. Onset of symptoms. Care prior to arrival: None. 16:06 Acuity: COLBY 3 cf3 Triage Assessment: 16:05 General: Appears uncomfortable, Behavior is calm, cooperative. Pain: Complains of pain cf3 in left low back Pain does not radiate. Pain currently is 5 out of 10 on a pain scale. at worst was 10 out of 10 on a pain scale. Quality of pain is described as aching, sharp. Neuro: Harden Agitation-Sedation Scale (RASS): 0 - Alert and Calm Level of Consciousness is awake, alert, obeys commands, Oriented to person, place, time, situation. Historical: - Allergies: 16:05 Amoxicillin; cf3 - PMHx: 16:05 Atrial Fib; Brain bleed; CAD; CHF; COPD; Diabetes - IDDM; Hypertension; cf3 - PSHx: 16:05 Heart ablasion; Bipass; cf3 - Immunization history:: Adult Immunizations up to date. - Infectious Disease History:: Denies. - Social history:: Smoking status: Patient denies any tobacco usage or history of. Screenin:15 [facility] ED Fall Risk Assessment (Adult) History of falling in the last 3 months, me1 including since admission No falls in past 3 months (0 pts) Confusion or Disorientation No (0 pts) Intoxicated or Sedated No (0 pts) Impaired Gait Yes (1 pt) Mobility Assist Device Used Yes (1 pt) Altered Elimination No (0 pt) Score/Fall Risk Level 0 - 2 = Low Risk Maintained a safe environment, Provided non-skid footwear, Hourly rounding (assess needs \T\ fall precautionary measures) done. Abuse screen: Denies threats or abuse. Nutritional screening: No deficits noted. Tuberculosis screening: No symptoms or risk factors identified. Assessment: 16:15 General: Appears in no apparent distress. Behavior is calm, cooperative, appropriate me1 for age. Pain: Complains of pain in left low back Pain does not radiate. Pain currently is 5 out of 10 on a pain scale. Quality of pain is described as sharp, Pain began gradually, Is continuous. Neuro: Level of Consciousness is awake, alert, obeys commands, Oriented to person, place, time, situation, Appropriate for age. Cardiovascular: Patient's skin is warm and dry. Respiratory: Airway is patent Respiratory effort is even, unlabored, Respiratory pattern is regular, symmetrical. GI: No signs and/or symptoms were reported involving the gastrointestinal system. : Reports pain in left in lower back. EENT: No signs and/or symptoms were reported regarding the EENT system. Derm: Skin is fragile, is thin, Skin is normal. Musculoskeletal: No signs and/or symptoms reported regarding the musculoskeletal system. 19:22 Reassessment: Patient appears in no apparent distress at this time. Patient and/or kj2 family updated on plan of care and expected duration. Pain level reassessed. Patient is alert, oriented x 3, equal unlabored respirations, skin warm/dry/pink. Vital Signs: 16:00 BP 169 / 79; Pulse 59; Resp 16; Pulse Ox 99% ; me1 16:06 BP 169 / 79; Pulse 59; Resp 16; Temp 98(O); Pulse Ox 99% on R/A; Weight 95.25 kg; cf3 Height 4 ft. 11 in. ; 17:00 BP 174 / 73; Pulse 61; Resp 15; Pulse Ox 100% ; me1 18:00 BP 146 / 74; Pulse 60; Resp 16; Pulse Ox 100% ; me1 19:00 BP 159 / 97; Pulse 89; Resp 16; Pulse Ox 96% ; me1 19:22 BP 159 / 88; Pulse 76; Resp 18; Temp 98; Pulse Ox 100% on R/A; kj2 16:06 Body Mass Index 42.41 (95.25 kg, 149.86 cm) cf3 ED Course: 16:01 Patient arrived in ED. kb 16:01 [facility]illo [facility]C [facility] kb 16:01 Jazmine Green MD is Attending Physician. kb 16:06 Gerard Forman, RN is Primary Nurse. cf3 16:15 Patient has correct armband on for positive identification. Bed in low position. Call me1 light in reach. Side rails up X2. Provided Education on: POC. Verbalized understanding.. Client placed on continuous cardiac and pulse oximetry monitoring. NIBP monitoring applied. Pulse ox on. NIBP on. 16:15 Arm band placed on right wrist. Patient placed in an exam room. cf3 16:15 No provider procedures requiring assistance completed. me1 17:00 CT Stone Protocol In Process Unspecified. EDMS 17:13 Triage completed. cf3 17:28 Initial lab(s) drawn, by me, sent to lab. Inserted saline lock: 22 gauge in right upper jl7 arm, using aseptic technique. Blood collected. Flushed with 10 mL NS. 19:23 IV discontinued, intact, bleeding controlled, No redness/swelling at site. Pressure kj2 dressing applied. Administered Medications: 18:03 Drug: Ondansetron IVP 4 mg IVP once; over 2 minutes Route: IVP; Site: right upper arm; cf3 19:10 Follow up: Response: No adverse reaction; Marked relief of symptoms cf3 18:04 Drug: morphine IVP or IV 4 mg IVP once over 4 mins Route: IVP; Infused Over: 4 mins; cf3 Site: right upper arm; 19:10 Follow up: Response: No adverse reaction; Marked relief of symptoms cf3 18:24 Drug: NS 0.9% IV 500 ml 500 ml IV at 1 bolus once; to be given as a bolus over 30 me1 minutes Volume: 500 ml; Route: IV; Rate: 1 bolus; Site: right antecubital; 19:23 Follow up: IV Status: Completed infusion; IV Intake: 500ml kj2 Medication: 16:15 VIS not applicable for this client. me1 Intake: 19:23 IV: 500ml; Total: 500ml. kj2 Outcome: 18:41 Discharge ordered by MD. spann 19:22 Discharged to home via wheelchair, kj2 19:22 Condition: stable 19:22 Discharge instructions given to patient, Instructed on discharge instructions, follow up and referral plans. Demonstrated understanding of instructions, follow-up care, 19:40 Patient left the ED. me1 Signatures: Dispatcher [employer] EDJodi Dukes, MARCO-C [employer] ENGINEER-Janet Lima RN RN jl7 Neema Tejada RN RN me1 Elma Lackey, RN RN kj2 Gerard Forman RN RN cf3
[2024-11-01 19:45] VITALS: TEMP 98
[2024-11-01 19:52] VITALS: BP 159/88; O2SAT 100
== END 2024-11-01 19:40 | disposition home or self-care (01) ==
LOC: ER 15:59
DX: R10.12 Left upper quadrant pain (principal)
CPT/HCPCS: 96361; 85025; 36415; 81003; 83690; 80053; 76377; 74176; 96375; 96374; 99284; J2405; J7040